=== PATIENT | female | born 1950 | race Hispanic/Latino ===

== ENCOUNTER → 2016-07-02 | Outpatient (CLI) | payer MEDICARE ==
[~2016-07-02] MED LIST: AMLO10TA2 PO; ASPI1TAB PO; DRIS50002 PO; GABA-279 PO; GLIP5TAB15 PO; K-TA10TA2 PO; LISI-542 PO; LISI20TA PO; METF1000 PO; RANI150T PO; SIMV80TA PO
[2016-07-02 14:37] LABS: BASO % 0.5 % (0.0-1.0); EOS # 0.4 K/mm3 (0.0-0.50); EOS % 4.7 % (0.0-3.0); LARGE UNSTAINED CELL # 0.2 K/mm3 (0.0-0.4); LARGE UNSTAINED CELL % 1.6 % (0.0-4.0); LYMPH # 2.2 K/mm3 (1.5-4.5); LYMPH % 21.5 % (24.0-44.0); MEAN CORPUSCULAR HEMOGLOBIN 28.9 pg (27.0-33.0); MEAN CORPUSCULAR HGB CONC 33.4 g/dl (32.0-36.5); MEAN CORPUSCULAR VOLUME 86.6 fl (80.0-96.0); MONO # 0.5 K/mm3 (0.0-0.8); MONO % 4.9 % (0.0-5.0); NEUTROPHILS # 6.5 K/mm3 (1.8-7.7); NEUTROPHILS % 66.9 % (36.0-66.0); PLATELET COUNT, AUTOMATED 305 k/mm3 (150-450); RED CELL DISTRIBUTION WIDTH 12.3 % (11.5-14.5); WHITE BLOOD COUNT 9.7 K/mm3 (4.0-10.0)
[2016-07-02 14:59] LABS: ALBUMIN 3.7 GM/DL (3.2-5.2); ALBUMIN/GLOBULIN RATIO 1.06 (1.00-1.93); ALKALINE PHOSPHATASE 41 U/L (45-117); ALT/SGPT 26 U/L (12-78); ANION GAP 11 MEQ/L (8-16); AST/SGOT 22 U/L (15-37); BILIRUBIN,TOTAL 0.4 MG/DL (0.2-1.0); BLOOD UREA NITROGEN 19 MG/DL (7-18); CALCIUM LEVEL 9.1 MG/DL (8.8-10.2); CARBON DIOXIDE LEVEL 28 MEQ/L (21-32); CHLORIDE LEVEL 102 MEQ/L (98-107); CREATININE FOR GFR 0.93 MG/DL (0.55-1.02); GLOMERULAR FILTRATION RATE > 60.0 (>45); GLUCOSE, FASTING 184 MG/DL (80-110); POTASSIUM SERUM 3.5 MEQ/L (3.5-5.1); SODIUM LEVEL 141 MEQ/L (136-145); TOTAL PROTEIN 7.2 GM/DL (6.4-8.2)
--- NOTE | 2016-07-02 15:01 | REP ---
CHEST X-RAY PA AND LATERAL: 07/02/2016. Comparison 07/12/2011. Clinical history: Preoperative chest. Findings: Two view show the lungs hypoinflated compared to the previous study. However, there is no pleural effusion, acute infiltrate, atelectasis or mass. Heart, mediastinal and hilar contours are grossly intact. The aorta is mildly tortuous but normal for age. The airway is intact. There are degenerative changes in the spine. There is no compression deformity. Impression: 1. No acute cardiopulmonary disease. Signed by Tre Estrada MD 07/02/2016 03:56 P
--- NOTE | 2016-07-02 17:00 | ECGEPIP ---
Stationary ECG Study [facility] Test Date: 2016-07-02 Pat Name: CLARA MOSER Department: Room: - Gender: F Measurer: : 1950 Requested By: Oral Cruz Order Number: [id number] Reading MD: Oral Monge Measurements Intervals [place] Rate: 94 P: 50 [place]: 223 QRS: 20 QRSD: 91 T: 71 QT: 377 QTc: 472 Interpretive Statements Normal sinus rhythm LA conduction disturbance? First-degree AV block. More prominent R waves in V2 and V3; rule out RVH versus prior PWMI Nonspecific lateral T-wave flattening No prior tracing for comparison. Clinical correlation advised. Electronically Signed On 07-02-2016 16:59:56 EST by Oral Monge
== END ==
LOC: M LAB 13:46
PROVIDERS: ATTEND Podiatrist
DX: Z01.818 Encounter for other preprocedural examination (principal); M20.11 Hallux valgus (acquired), right foot; E11.9 Type 2 diabetes mellitus without complications

== ENCOUNTER → 2016-07-02 | Outpatient (CLI) | payer MEDICARE ==
[2016-07-02 10:04] LABS: ALBUMIN 3.7 GM/DL (3.2-5.2); ALBUMIN/GLOBULIN RATIO 1.12 (1.00-1.93); ALKALINE PHOSPHATASE 42 U/L (45-117); ALT/SGPT 24 U/L (12-78); ANION GAP 10 MEQ/L (8-16); AST/SGOT 22 U/L (15-37); BILIRUBIN,TOTAL 0.6 MG/DL (0.2-1.0); BLOOD UREA NITROGEN 15 MG/DL (7-18); CALCIUM LEVEL 8.9 MG/DL (8.8-10.2); CARBON DIOXIDE LEVEL 27 MEQ/L (21-32); CHLORIDE LEVEL 105 MEQ/L (98-107); CHOLESTEROL LEVEL 120 MG/DL (<200); CREATININE FOR GFR 0.82 MG/DL (0.55-1.02); GLOMERULAR FILTRATION RATE > 60.0 (>45); GLUCOSE, FASTING 191 MG/DL (80-110); POTASSIUM SERUM 3.5 MEQ/L (3.5-5.1); SODIUM LEVEL 142 MEQ/L (136-145); TRIGLYCERIDES LEVEL 127 MG/DL (<150)
== END ==
LOC: M LAB 08:56
PROVIDERS: ATTEND Family Medicine Addiction Medicine
DX: E11.9 Type 2 diabetes mellitus without complications (principal)

== ENCOUNTER → 2016-07-06 | Day surgery (SDC) | payer MEDICARE ==
[~2016-07-06] VITALS: Ht 162.6 cm; Wt 86.2 kg
[~2016-07-06] MED LIST changes: +BACITRACIN PWD 50,000 UNITS VIAL As Ordered ONE; +BACITRACIN PWD 50,000 UNITS VIAL IR ONE; +BUPIVACAINE HCL 0.5% 30 ML VIAL As Ordered ONE; +BUPIVACAINE HCL 0.5% 30 ML VIAL XX ONE; +HumaLOG INSULIN (NovoLOG) PER UNIT As Ordered ONE; +HumaLOG INSULIN (NovoLOG) PER UNIT SC ONE; +KETAMINE HCL 200 MG/20 ML VIAL As Ordered ONE; +LIDOCAINE 2% INJ 100 MG/5 ML SDV (FOR ANES.) As Ordered ONE; +LIDOCAINE 2% MDV 20 ML VIAL As Ordered ONE; +LIDOCAINE 2% MDV 20 ML VIAL XX ONE; +LR 1,000 ML IV SCH; +MIDAZOLAM INJ 2 MG/2 ML VIAL (J2250) As Ordered ONE; +NEOSPORIN GU IRRIG 20 ML VIAL As Ordered ONE; +NEOSPORIN GU IRRIG 20 ML VIAL IR ONE; +ONDANSETRON 4 MG ORAL DISINTEGRATING TAB (S0181) PO ONE; +PERCOCET 5MG/325MG TAB PO PRN; +PROPOFOL 200 MG/20 ML VIAL As Ordered ONE; +ceFAZolin SOD 1 GM in D5W MINI-BAG PLUS 50 ML IV ONE; +dexameTHASONE 4 MG/ML 1ML VIAL (J1100) As Ordered ONE; +dexameTHASONE 4 MG/ML 1ML VIAL (J1100) XX ONE; +fentaNYL 100 MCG/2 ML INJECTION (J3010) As Ordered ONE
--- NOTE | 2016-07-06 15:05 | REP ---
RIGHT FOOT, THREE VIEWS: HISTORY: Bunionectomy. COMPARISON: 02/07/2016. A cast is present obscuring bone detail. The patient is status post bunionectomy of the first metatarsal. The patient is status post arthrodesis of the medial cuneiform and first metatarsal. A metal plate and screws are present. The joint spaces are normal in appearance. IMPRESSION: 1. The patient is status post bunionectomy of the first metatarsal. 2. The patient is status post arthrodesis of the first tarsal metatarsal joint. Signed by Ye Wood MD 07/06/2016 03:29 P
[2016-07-06 16:10] VITALS: BP 122/66
--- NOTE | 2016-07-07 14:34 | RO ---
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 PROCEDURE: Lapidus bunionectomy right foot SURGEON: Oral Cruz DPM REVENUE OFFICER: None. ANESTHESIA: Local, monitored anesthesia care (MAC). IRRIGATION: Dilute bacitracin, neomycin and polymyxin B solution. HEMOSTASIS: Ankle pneumatic tourniquet at 250 mmHg for 63 minutes right ankle. HARDWARE UTILIZED: Harris LPS plate size 0, DartFire 3.5 x 38 mm screw and nonlocking screws 3.5 x 16 x 2 and a 2.7 x 18 and 2.7 x 22. DESCRIPTION OF PROCEDURE: On 07/06/2016, this 65-year-old female was taken from her hospital room to the operating room and placed on the operating room table in a supine position. Following the induction of IV sedation, local and regional anesthesia, the right lower extremity was prepped and draped in the usual aseptic manner. Sterile draping was completed. Ankle pneumatic tourniquet was rapidly inflated. Lapidus bunionectomy right foot Attention was directed to the first metatarsal phalangeal joint where an incision was made from the middle aspect of the medial cuneiform to distal to the first metatarsal phalangeal joint. The incision was deepened through subcutaneous tissues and all coursing venous tributaries were identified, underscored, clamped, cut, ligated, and electrocoagulated as necessary. A linear capsulotomy was then performed in the same plane as the original skin incision. The capsule and periosteal structures were dissected free in one continuous layer dorsally, medially and laterally, thus creating a capsule and periosteal type envelope. The hypertrophied medial eminence was then osteotomized from distal to proximal through and through exiting medial to sesamoidal groove. Attention was directed into the first metatarsal space where dissection was carried down to the level of the conjoined tendon which was sharply dissected free from the fibular sesamoid. Attention was then directed to the first metatarsal cuneiform joint where a small wedge of bone and cartilage was removed from the joint, removing arthritic cartilage at the first metatarsal cuneiform joint. The ends were then drilled with a 2.0 drill bit to promote fusion. The wound was flushed with copious amounts of dilute bacitracin, neomycin and polymyxin B solution. A 3.5 x 38 mm cannulated screw was then placed across the first metatarsal cuneiform joint providing compression. This was performed with C-arm imagery. A contoured size 0 LPS plate was then placed on the medial surface of the first metatarsal cuneiform joint and fixated with two 3.5 x 16 mm nonlocking screws along the medial cuneiform and 2.7 x 18 and a 2.7 x 22 mm nonlocking screws along the metatarsal. This created a stable construct for fusion at the first metatarsal cuneiform joint. The wound was flushed with copious amounts of dilute bacitracin, neomycin and polymyxin B solution. Attention was directed toward closure where the capsular structures were coapted and maintained utilizing #3-0 Vicryl in a simple interrupted type fashion. Subcutaneous tissues were coapted and maintained utilizing #4-0 Monocryl in a simple interrupted type fashion. The skin incision was coapted and maintained utilizing #4-0 Prolene in a simple interrupted and horizontal mattress type fashion. Following the completion of the surgical procedure, 4 mg of dexamethasone sodium phosphate was instilled proximal to the surgical site. Sterile dressing was applied consisting of Adaptic, 4x4s, and Klong. The ankle pneumatic tourniquet was rapidly deflated and instantaneous capillary filling time was noted in digits 1-5 of the patients left foot. A well molded below the knee fiberglass cast was then applied over the patient's foot and leg. The patient having apparently tolerated the surgical procedure well was taken from the OR to the recovery room with vital signs stable and the patient afebrile for further monitoring by the anesthesia department. All surgical specimens removed during the operative procedure were sent to pathology for gross and microscopic examination. Postoperative instructions will be given upon discharge. MYNOR
== END | disposition home or self-care (01) ==
LOC: M SDC 09:40
PROVIDERS: ATTEND Podiatrist
DX: M20.11 Hallux valgus (acquired), right foot (principal); E11.9 Type 2 diabetes mellitus without complications; G47.30 Sleep apnea, unspecified; Z79.82 Long term (current) use of aspirin; Z79.899 Other long term (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; I10 Essential (primary) hypertension; E78.5 Hyperlipidemia, unspecified
CPT/HCPCS: 28297; 73630; 88300; 97116; C1776; J0690; J1100; J2250; J3010

== ENCOUNTER → 2016-09-18 | Outpatient (CLI) | payer MEDICARE ==
[~2016-09-18] MED LIST changes: -BACITRACIN PWD 50,000 UNITS VIAL As Ordered ONE; -BACITRACIN PWD 50,000 UNITS VIAL IR ONE; -BUPIVACAINE HCL 0.5% 30 ML VIAL As Ordered ONE; -BUPIVACAINE HCL 0.5% 30 ML VIAL XX ONE; -HumaLOG INSULIN (NovoLOG) PER UNIT As Ordered ONE; -HumaLOG INSULIN (NovoLOG) PER UNIT SC ONE; -KETAMINE HCL 200 MG/20 ML VIAL As Ordered ONE; -LIDOCAINE 2% INJ 100 MG/5 ML SDV (FOR ANES.) As Ordered ONE; -LIDOCAINE 2% MDV 20 ML VIAL As Ordered ONE; -LIDOCAINE 2% MDV 20 ML VIAL XX ONE; -LR 1,000 ML IV SCH; -MIDAZOLAM INJ 2 MG/2 ML VIAL (J2250) As Ordered ONE; -NEOSPORIN GU IRRIG 20 ML VIAL As Ordered ONE; -NEOSPORIN GU IRRIG 20 ML VIAL IR ONE; -ONDANSETRON 4 MG ORAL DISINTEGRATING TAB (S0181) PO ONE; -PERCOCET 5MG/325MG TAB PO PRN; -PROPOFOL 200 MG/20 ML VIAL As Ordered ONE; -ceFAZolin SOD 1 GM in D5W MINI-BAG PLUS 50 ML IV ONE; -dexameTHASONE 4 MG/ML 1ML VIAL (J1100) As Ordered ONE; -dexameTHASONE 4 MG/ML 1ML VIAL (J1100) XX ONE; -fentaNYL 100 MCG/2 ML INJECTION (J3010) As Ordered ONE
[2016-09-18 10:27] LABS: BASO % 0.4 % (0.0-1.0); EOS # 0.7 K/mm3 (0.0-0.50); EOS % 6.5 % (0.0-3.0); LYMPH # 2.2 K/mm3 (1.5-4.5); MEAN CORPUSCULAR HGB CONC 33.7 g/dl (32.0-36.5); MEAN CORPUSCULAR VOLUME 88.8 fl (80.0-96.0); MONO # 0.5 K/mm3 (0.0-0.8); MONO % 4.3 % (0.0-5.0); NEUTROPHILS # 7.1 K/mm3 (1.8-7.7); NEUTROPHILS % 66.6 % (36.0-66.0); RED CELL DISTRIBUTION WIDTH 12.5 % (11.5-14.5); WHITE BLOOD COUNT 10.6 K/mm3 (4.0-10.0)
[2016-09-18 10:59] LABS: ALBUMIN 3.7 GM/DL (3.2-5.2); ALBUMIN/GLOBULIN RATIO 1.12 (1.00-1.93); ALKALINE PHOSPHATASE 39 U/L (45-117); ALT/SGPT 23 U/L (12-78); ANION GAP 8 MEQ/L (8-16); AST/SGOT 20 U/L (15-37); BILIRUBIN,TOTAL 0.5 MG/DL (0.2-1.0); BLOOD UREA NITROGEN 17 MG/DL (7-18); CARBON DIOXIDE LEVEL 32 MEQ/L (21-32); CHLORIDE LEVEL 102 MEQ/L (98-107); CHOLESTEROL LEVEL 131 MG/DL (<200); CREATININE FOR GFR 0.88 MG/DL (0.55-1.02); GLOMERULAR FILTRATION RATE > 60.0 (>45); GLUCOSE, FASTING 187 MG/DL (80-110); POTASSIUM SERUM 3.6 MEQ/L (3.5-5.1); SODIUM LEVEL 142 MEQ/L (136-145); TRIGLYCERIDES LEVEL 178 MG/DL (<150)
== END ==
LOC: M LAB 09:21
PROVIDERS: ATTEND Physician Assistant Medical
DX: E11.9 Type 2 diabetes mellitus without complications (principal)

== ENCOUNTER → 2016-12-21 | Outpatient (CLI) | payer MEDICARE ==
[~2016-12-21] MED LIST changes: +GLIP1TAB49 PO; -GLIP5TAB15 PO; -METF1000 PO; +METF10004 PO
[2016-12-21 09:53] LABS: BASO % 0.5 % (0.0-1.0); EOS # 0.7 K/mm3 (0.0-0.50); EOS % 7.3 % (0.0-3.0); LYMPH # 2.3 K/mm3 (1.5-4.5); LYMPH % 22.1 % (24.0-44.0); MEAN CORPUSCULAR HEMOGLOBIN 30.5 pg (27.0-33.0); MEAN CORPUSCULAR HGB CONC 35.2 g/dl (32.0-36.5); MEAN CORPUSCULAR VOLUME 86.6 fl (80.0-96.0); MONO # 0.4 K/mm3 (0.0-0.8); MONO % 4.3 % (0.0-5.0); NEUTROPHILS # 6.2 K/mm3 (1.8-7.7); NEUTROPHILS % 64.6 % (36.0-66.0); RED CELL DISTRIBUTION WIDTH 12.5 % (11.5-14.5); WHITE BLOOD COUNT 9.7 K/mm3 (4.0-10.0)
[2016-12-21 10:32] LABS: VITAMIN B12 LEVEL 265 PG/ML (247-911)
[2016-12-21 10:33] LABS: FOLATE 12.7 NG/ML (>5.4)
[2016-12-21 10:36] LABS: ALBUMIN 3.7 GM/DL (3.2-5.2); ALBUMIN/GLOBULIN RATIO 1.09 (1.00-1.93); ALKALINE PHOSPHATASE 43 U/L (45-117); ALT/SGPT 20 U/L (12-78); ANION GAP 13 MEQ/L (8-16); AST/SGOT 13 U/L (15-37); BILIRUBIN,TOTAL 0.6 MG/DL (0.2-1.0); BLOOD UREA NITROGEN 18 MG/DL (7-18); CALCIUM LEVEL 9.2 MG/DL (8.8-10.2); CARBON DIOXIDE LEVEL 26 MEQ/L (21-32); CHLORIDE LEVEL 101 MEQ/L (98-107); GLOMERULAR FILTRATION RATE > 60.0 (>45); GLUCOSE, FASTING 202 MG/DL (80-110); MAGNESIUM LEVEL 1.6 MG/DL (1.8-2.4); PHOSPHORUS LEVEL 3.2 MG/DL (2.5-4.9); POTASSIUM SERUM 3.3 MEQ/L (3.5-5.1); SODIUM LEVEL 140 MEQ/L (136-145); TOTAL PROTEIN 7.1 GM/DL (6.4-8.2)
[2016-12-24 11:54] LABS: ALBUMIN 3.91 GM/DL (3.29-5.55); ALBUMIN % 55.1 % (55.8-66.1); GAMMA GLOBULIN % 13.7 % (11.1-18.8)
[2016-12-25 00:10] LABS: Lyme Disease IgG Ab 18 kDa Ban Absent (.); Lyme Disease IgG Ab 23 kDa Ban Absent (.); Lyme Disease IgG Ab 28 kDa Ban Absent (.); Lyme Disease IgG Ab 30 kDa Ban Absent (.); Lyme Disease IgG Ab 39 kDa Ban Absent (.); Lyme Disease IgG Ab 41 kDa Ban Present (.); Lyme Disease IgG Ab 45 kDa Ban Absent (.); Lyme Disease IgG Ab 58 kDa Ban Absent (.); Lyme Disease IgG Ab 66 kDa Ban Absent (.); Lyme Disease IgG Ab 93 kDa Ban Absent (.); Lyme Disease IgG West Blot Int Negative (.); Lyme Disease IgG/IgM Antibodie <0.91 ISR (0.00-0.90); Lyme Disease IgM Ab 23 kDa Ban Absent (.); Lyme Disease IgM Ab 39 kDa Ban Absent (.); Lyme Disease IgM Ab 41 kDa Ban Absent (.); Lyme Disease IgM West Blot Int Negative (.)
== END ==
LOC: M LAB 08:43
PROVIDERS: ATTEND Physician Assistant Medical
DX: M13.80 Other specified arthritis, unspecified site (principal); R53.83 Other fatigue

== ENCOUNTER → 2017-02-11 | Outpatient (CLI) | payer MEDICARE ==
[2017-02-11 09:14] LABS: ANION GAP 9 MEQ/L (8-16); BLOOD UREA NITROGEN 18 MG/DL (7-18); CALCIUM LEVEL 8.9 MG/DL (8.8-10.2); CARBON DIOXIDE LEVEL 29 MEQ/L (21-32); CHLORIDE LEVEL 101 MEQ/L (98-107); CREATININE FOR GFR 0.83 MG/DL (0.55-1.02); FERRITIN 39 NG/ML (8-252); GLOMERULAR FILTRATION RATE > 60.0 (>45); GLUCOSE, FASTING 218 MG/DL (80-110); POTASSIUM SERUM 3.5 MEQ/L (3.5-5.1); SODIUM LEVEL 139 MEQ/L (136-145)
== END ==
LOC: M LAB 07:49
PROVIDERS: ATTEND Physician Assistant Medical
DX: M13.80 Other specified arthritis, unspecified site (principal); E11.9 Type 2 diabetes mellitus without complications; E87.6 Hypokalemia

== ENCOUNTER → 2017-04-16 | Outpatient (CLI) | payer MEDICARE ==
[2017-04-16 10:43] LABS: ALBUMIN 3.4 GM/DL (3.2-5.2); ALBUMIN/GLOBULIN RATIO 0.92 (1.00-1.93); ALKALINE PHOSPHATASE 49 U/L (45-117); ALT/SGPT 24 U/L (12-78); ANION GAP 10 MEQ/L (8-16); AST/SGOT 17 U/L (7-37); BILIRUBIN,TOTAL 0.6 MG/DL (0.2-1.0); BLOOD UREA NITROGEN 18 MG/DL (7-18); CALCIUM LEVEL 9.1 MG/DL (8.8-10.2); CARBON DIOXIDE LEVEL 29 MEQ/L (21-32); CHLORIDE LEVEL 102 MEQ/L (98-107); CHOLESTEROL LEVEL 137 MG/DL (<200); CREATININE FOR GFR 0.82 MG/DL (0.55-1.02); GLOMERULAR FILTRATION RATE > 60.0 (>45); GLUCOSE, FASTING 194 MG/DL (80-110); POTASSIUM SERUM 3.5 MEQ/L (3.5-5.1); SODIUM LEVEL 141 MEQ/L (136-145); TOTAL PROTEIN 7.1 GM/DL (6.4-8.2); TRIGLYCERIDES LEVEL 222 MG/DL (<150)
== END ==
LOC: M LAB 09:37
PROVIDERS: ATTEND Physician Assistant Medical
DX: E11.9 Type 2 diabetes mellitus without complications (principal); Z79.899 Other long term (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

== ENCOUNTER → 2017-06-03 | Outpatient (CLI) | payer MEDICARE ==
[2017-06-03 09:44] LABS: ALBUMIN 3.7 GM/DL (3.2-5.2); ALBUMIN/GLOBULIN RATIO 1.03 (1.00-1.93); ALKALINE PHOSPHATASE 48 U/L (45-117); ALT/SGPT 23 U/L (12-78); ANION GAP 9 MEQ/L (8-16); AST/SGOT 15 U/L (7-37); BILIRUBIN,TOTAL 0.5 MG/DL (0.2-1.0); BLOOD UREA NITROGEN 16 MG/DL (7-18); CALCIUM LEVEL 9.3 MG/DL (8.8-10.2); CARBON DIOXIDE LEVEL 30 MEQ/L (21-32); CHLORIDE LEVEL 101 MEQ/L (98-107); CHOLESTEROL LEVEL 140 MG/DL (<200); CHOLESTEROL RISK RATIO 3.684 (<5); GLOMERULAR FILTRATION RATE > 60.0 (>45); GLUCOSE, FASTING 246 MG/DL (80-110); HDL CHOLESTEROL 38 MG/DL (>40); LDL CHOLESTEROL 60.6 MG/DL (<100); NON-HDL-C 102 MG/DL; POTASSIUM SERUM 3.7 MEQ/L (3.5-5.1); SODIUM LEVEL 140 MEQ/L (136-145); TOTAL PROTEIN 7.3 GM/DL (6.4-8.2); TRIGLYCERIDES LEVEL 207 MG/DL (<150)
[2017-06-03 10:20] LABS: ESTIMATED AVERAGE GLUCOSE 266 MG/DL (60-110); HEMOGLOBIN A1c 10.9 %
== END ==
LOC: M LAB 08:43
DX: E11.9 Type 2 diabetes mellitus without complications (principal)
CPT/HCPCS: 80053

== ENCOUNTER → 2017-07-09 | Outpatient (CLI) | payer MEDICARE ==
[2017-07-09 11:44] LABS: BASO % 0.3 % (0.0-1.0); EOS # 0.5 10^3/uL (0.0-0.50); EOS % 5.5 % (0.0-3.0); HEMATOCRIT 38.9 % (36.0-47.0); HEMOGLOBIN 13.5 g/dl (12.0-16.0); IMMATURE GRANULOCYTE % 0.2 % (0-3.0); LYMPH # 2.6 10^3/uL (1.5-4.5); LYMPH % 28.8 % (24.0-44.0); MEAN CORPUSCULAR HEMOGLOBIN 29.5 pg (27.0-33.0); MEAN CORPUSCULAR HGB CONC 34.7 g/dl (32.0-36.5); MEAN CORPUSCULAR VOLUME 85.1 fl (80.0-96.0); MONO # 0.6 10^3/uL (0.0-0.8); MONO % 6.4 % (0.0-5.0); NEUTROPHILS # 5.3 10^3/uL (1.8-7.7); NEUTROPHILS % 58.8 % (36.0-66.0); PLATELET COUNT, AUTOMATED 304 10^3/uL (150-450); RED BLOOD COUNT 4.57 10^6/uL (4.00-5.40); RED CELL DISTRIBUTION WIDTH 12.1 % (11.5-14.5); WHITE BLOOD COUNT 9.1 10^3/uL (4.0-10.0)
[2017-07-09 12:00] LABS: ESTIMATED AVERAGE GLUCOSE 220 MG/DL (60-110); HEMOGLOBIN A1c 9.3 %
[2017-07-09 12:12] LABS: ALBUMIN 3.8 GM/DL (3.2-5.2); ALBUMIN/GLOBULIN RATIO 1.06 (1.00-1.93); ALKALINE PHOSPHATASE 39 U/L (45-117); ALT/SGPT 25 U/L (12-78); ANION GAP 10 MEQ/L (8-16); AST/SGOT 19 U/L (7-37); BILIRUBIN,TOTAL 0.5 MG/DL (0.2-1.0); BLOOD UREA NITROGEN 17 MG/DL (7-18); CALCIUM LEVEL 8.9 MG/DL (8.8-10.2); CARBON DIOXIDE LEVEL 26 MEQ/L (21-32); CHLORIDE LEVEL 105 MEQ/L (98-107); CHOLESTEROL LEVEL 138 MG/DL (<200); CREATININE FOR GFR 0.74 MG/DL (0.55-1.30); GLOMERULAR FILTRATION RATE > 60.0 (>45); GLUCOSE, FASTING 172 MG/DL (70-100); HDL CHOLESTEROL 40 MG/DL (>40); LDL CHOLESTEROL 72.2 MG/DL (<100); NON-HDL-C 98 MG/DL; POTASSIUM SERUM 3.5 MEQ/L (3.5-5.1); SODIUM LEVEL 141 MEQ/L (136-145); TOTAL PROTEIN 7.4 GM/DL (6.4-8.2); TRIGLYCERIDES LEVEL 129 MG/DL (<150)
== END ==
LOC: M LAB 11:00
DX: E11.9 Type 2 diabetes mellitus without complications (principal)
CPT/HCPCS: 80053

== ENCOUNTER → 2018-01-29 | Outpatient (CLI) | payer MEDICARE ==
[2018-01-29 10:56] LABS: HEMATOCRIT 40.3 % (36.0-47.0); HEMOGLOBIN 13.8 g/dl (12.0-15.5); MEAN CORPUSCULAR HEMOGLOBIN 29.6 pg (27.0-33.0); MEAN CORPUSCULAR HGB CONC 34.2 g/dl (32.0-36.5); MEAN CORPUSCULAR VOLUME 86.5 fl (80.0-96.0); PLATELET COUNT, AUTOMATED 276 10^3/uL (150-450); RED BLOOD COUNT 4.66 10^6/uL (4.00-5.40); RED CELL DISTRIBUTION WIDTH 11.9 % (11.5-14.5); WHITE BLOOD COUNT 10.1 10^3/uL (4.0-10.0)
[2018-01-29 11:30] LABS: ESTIMATED AVERAGE GLUCOSE 237 MG/DL (60-110); HEMOGLOBIN A1c 9.9 %
[2018-01-29 11:39] LABS: ALBUMIN 3.6 GM/DL (3.2-5.2); ALBUMIN/GLOBULIN RATIO 0.97 (1.00-1.93); ALKALINE PHOSPHATASE 44 U/L (45-117); ALT/SGPT 29 U/L (12-78); ANION GAP 9 MEQ/L (8-16); AST/SGOT 17 U/L (7-37); BILIRUBIN,TOTAL 0.6 MG/DL (0.2-1.0); BLOOD UREA NITROGEN 24 MG/DL (7-18); CALCIUM LEVEL 8.8 MG/DL (8.8-10.2); CARBON DIOXIDE LEVEL 30 MEQ/L (21-32); CHLORIDE LEVEL 101 MEQ/L (98-107); CHOLESTEROL LEVEL 157 MG/DL (<200); CHOLESTEROL RISK RATIO 4.757 (<5); CREATININE FOR GFR 0.98 MG/DL (0.55-1.30); GLOMERULAR FILTRATION RATE > 60.0 (>45); GLUCOSE, FASTING 243 MG/DL (70-100); HDL CHOLESTEROL 33 MG/DL (>40); LDL CHOLESTEROL 79 MG/DL (<100); NON-HDL-C 124 MG/DL; POTASSIUM SERUM 3.3 MEQ/L (3.5-5.1); SODIUM LEVEL 140 MEQ/L (136-145); TOTAL PROTEIN 7.3 GM/DL (6.4-8.2); TRIGLYCERIDES LEVEL 227 MG/DL (<150)
[2018-01-29 11:41] LABS: TOTAL 25(OH) VITAMIN D 27.8 NG/ML (30.0-100.0)
== END ==
LOC: M LAB 10:13
DX: R53.83 Other fatigue (principal); I10 Essential (primary) hypertension; E11.9 Type 2 diabetes mellitus without complications; Z79.899 Other long term (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
CPT/HCPCS: 71046

== ENCOUNTER → 2018-05-21 | Outpatient (CLI) | payer MEDICARE ==
[~2018-05-21] MED LIST changes: -AMLO10TA2 PO; +AMLO10TA5 PO; -DRIS50002 PO; +DRIS50003 PO; +GABA-1171 PO; -GABA-279 PO; -GLIP1TAB49 PO; +GLIP5TAB20 PO; -SIMV80TA PO; +SIMV80TA13 PO
[2018-05-21 10:33] LABS: CHOLESTEROL RISK RATIO 4.111 (<5); THYROID STIMULATING HORMONE 1.62 uIU/ML (0.358-3.740)
[2018-05-21 11:03] LABS: TOTAL 25(OH) VITAMIN D 25.3 NG/ML (30.0-100.0)
[2018-05-21 11:07] LABS: HEMOGLOBIN A1c 10.7 %
--- NOTE | 2018-05-21 11:09 | REP ---
LUMBAR SPINE, FIVE VIEWS: HISTORY: Sciatica. COMPARISON: 05/18/2013 The lowest intervertebral disc is assumed to be the L5-S1 intervertebral disc. There is no acute fracture or subluxation. The L3-4 through L5-S1 intervertebral discs are decreased in height consistent with disc degeneration. Osteophytes are present on L3 through L5. There is narrowing of the L5-S1 facet joints. IMPRESSION: Degenerative change as described above. Electronically Signed by Ye Wood MD 05/21/2018 11:18 A
== END ==
LOC: M LAB 09:08
PROVIDERS: ATTEND Family Medicine
DX: M51.37 Other intervertebral disc degeneration, lumbosacral region (principal); M25.78 Osteophyte, vertebrae; E11.9 Type 2 diabetes mellitus without complications; I10 Essential (primary) hypertension; E03.9 Hypothyroidism, unspecified; R53.83 Other fatigue

== ENCOUNTER 2018-10-16 09:27 | Outpatient (RCR) | payer MEDICARE ==
[~2018-10-16 09:27] MED LIST changes: -ASPI1TAB PO; +ASPI81TA26 PO
== END 2018-10-17 ==
LOC: M PT 09:27
PROVIDERS: ATTEND Orthopaedic Surgery
DX: M17.0 Bilateral primary osteoarthritis of knee (principal)

== ENCOUNTER → 2018-11-03 | Outpatient (CLI) | payer MEDICARE ==
[2018-11-03 11:16] LABS: HEMATOCRIT 43.6 % (36.0-47.0); HEMOGLOBIN 14.3 g/dl (12.0-15.5); MEAN CORPUSCULAR HEMOGLOBIN 30.3 pg (27.0-33.0); MEAN CORPUSCULAR HGB CONC 32.8 g/dl (32.0-36.5); MEAN CORPUSCULAR VOLUME 92.4 fl (80.0-96.0); PLATELET COUNT, AUTOMATED 246 10^3/uL (150-450); RED BLOOD COUNT 4.72 10^6/uL (4.00-5.40); WHITE BLOOD COUNT 9.3 10^3/uL (4.0-10.0)
[2018-11-03 11:33] LABS: HEMOGLOBIN A1c 9.8 %
[2018-11-03 12:05] LABS: ALBUMIN 3.2 GM/DL (3.2-5.2); ALT/SGPT 29 U/L (12-78); BILIRUBIN,TOTAL 0.7 MG/DL (0.2-1.0); BLOOD UREA NITROGEN 20 MG/DL (7-18); CARBON DIOXIDE LEVEL 32 MEQ/L (21-32); CHLORIDE LEVEL 106 MEQ/L (98-107); CHOLESTEROL LEVEL 159 MG/DL (<200); CHOLESTEROL RISK RATIO 3.057 (<5); CREATININE FOR GFR 0.85 MG/DL (0.55-1.30); GLOMERULAR FILTRATION RATE > 60.0 (>45); GLUCOSE, FASTING 131 MG/DL (70-100); HDL CHOLESTEROL 52 MG/DL (>40); IRON (FE) 79 UG/DL (50-170); LDL CHOLESTEROL 88 MG/DL (<100); NON-HDL-C 107 MG/DL; PERCENT SATURATION 22.8 % (13.2-45.0); POTASSIUM SERUM 4.5 MEQ/L (3.5-5.1); SODIUM LEVEL 142 MEQ/L (136-145); THYROXINE (T4) 11.6 UG/DL (4.5-12.0); TOTAL IRON BINDING CAPACITY 346 UG/DL (250-450); TOTAL PROTEIN 6.7 GM/DL (6.4-8.2); TOTAL T3 107.9 NG/DL (60.0-181.0); TRIGLYCERIDES LEVEL 95 MG/DL (<150)
== END ==
LOC: M LAB 10:09
PROVIDERS: ATTEND Family Medicine
DX: D64.9 Anemia, unspecified (principal); R53.83 Other fatigue; M17.0 Bilateral primary osteoarthritis of knee

== ENCOUNTER 2018-11-06 09:27 | Outpatient (RCR) | payer MEDICARE | END 2018-11-16 | LOC: M PT 09:27 | PROVIDERS: ATTEND Orthopaedic Surgery | DX: M17.0 Bilateral primary osteoarthritis of knee (principal) ==

== ENCOUNTER 2018-11-29 17:54 | Emergency (ER) | payer MEDICARE ==
[~2018-11-29] VITALS: Ht 162.6 cm; Wt 79.5 kg
[2018-11-29] MEDS ORDERED: MONT10TA2 PO (18:32)
[2018-11-29] MEDS ORDERED: CLAR10CA3 PO (18:32)
[2018-11-29] MEDS ORDERED: MELO15TA28 (18:32)
[2018-11-29 18:50] LABS: BASO # 0.1 10^3/uL (0.0-0.2); BASO % 0.4 % (0.0-1.0); EOS # 0.3 10^3/uL (0.0-0.50); EOS % 1.8 % (0.0-3.0); HEMATOCRIT 42.9 % (36.0-47.0); HEMOGLOBIN 14.6 g/dl (12.0-15.5); LYMPH # 1.3 10^3/uL (1.5-4.5); LYMPH % 9.5 % (24.0-44.0); MEAN CORPUSCULAR HEMOGLOBIN 30.2 pg (27.0-33.0); MEAN CORPUSCULAR VOLUME 88.8 fl (80.0-96.0); MONO # 0.9 10^3/uL (0.0-0.8); MONO % 6.7 % (0.0-5.0); NEUTROPHILS # 11.2 10^3/uL (1.8-7.7); NEUTROPHILS % 81.1 % (36.0-66.0); PLATELET COUNT, AUTOMATED 314 10^3/uL (150-450); RED BLOOD COUNT 4.83 10^6/uL (4.00-5.40); WHITE BLOOD COUNT 13.8 10^3/uL (4.0-10.0)
[2018-11-29] MEDS ORDERED: NITROGLYCERIN 0.4 MG SUBL TABLET SL PRN (19:00)
[2018-11-29] MEDS ORDERED: ASPIRIN 81 MG CHEW TABLET PO ONE (19:00)
[2018-11-29 19:07] VITALS: BP 158/94
[2018-11-29 19:42] LABS: ALBUMIN 3.4 GM/DL (3.2-5.2); ALT/SGPT 31 U/L (12-78); BILIRUBIN,DIRECT < 0.1 MG/DL (0.0-0.2); BILIRUBIN,TOTAL 0.4 MG/DL (0.2-1.0); BLOOD UREA NITROGEN 19 MG/DL (7-18); CALCIUM LEVEL 9.3 MG/DL (8.8-10.2); CARBON DIOXIDE LEVEL 27 MEQ/L (21-32); CHLORIDE LEVEL 102 MEQ/L (98-107); CK-MB VALUE MASS 1.2 NG/ML (<3.6); CPK CREATINE PHOSPHOKINASE 106 U/L (26-192); CREATININE FOR GFR 0.99 MG/DL (0.55-1.30); GLOMERULAR FILTRATION RATE 59.6 (>45); GLUCOSE, FASTING 240 MG/DL (70-100); LIPASE 244 U/L (73-393); MB/CK RELATIVE INDEX 1.13 (< OR =4); NT-PRO BNP 107 PG/ML (<125); POTASSIUM SERUM 3.5 MEQ/L (3.5-5.1); SODIUM LEVEL 139 MEQ/L (136-145); TOTAL PROTEIN 7.1 GM/DL (6.4-8.2); TROPONIN I < 0.02 NG/ML (< 0.10)
[2018-11-29] MEDS ORDERED: ISOVUE-370 76% 100ML VIAL (Q9967) As Ordered ONE (19:46)
--- NOTE | 2018-11-29 20:19 | REPVR ---
EXAM: CT Angiography Chest With Contrast EXAM DATE/TIME: 11/29/2018 7:49 PM CLINICAL HISTORY: 68 years old, female; Chest pain; Additional info: Pleuritic R chest pain TECHNIQUE: Imaging protocol: Axial computed tomographic angiography images of the chest with intravenous contrast using CT angiography protocol. Coronal and sagittal reformatted images were created and reviewed. 3D rendering: MIP reconstructed images were created and reviewed. Radiation optimization: All CT scans at this facility use at least one of these dose optimization techniques: automated exposure control; mA and/or kV adjustment per patient size (includes targeted exams where dose is matched to clinical indication); or iterative reconstruction. Contrast material: ISOVUE 370; Contrast volume: 100 ml; Contrast route: IV; COMPARISON: CR PORTABLE CHEST X-RAY 11/29/2018 6:27 PM FINDINGS: Pulmonary arteries: The main pulmonary artery measures 34 mm. No pulmonary embolism is identified. Aorta: The ascending thoracic aorta measures 36 mm. Lungs: Minimal bilateral lower lobe fibro-atelectatic change. Calcified granuloma in the posterior upper lobe. Pleural space: Unremarkable. No pneumothorax. No pleural effusion. Heart: Coronary artery calcifications are present. Kidneys and ureters: Severely hypoplastic left kidney. Lymph nodes: Unremarkable. No enlarged lymph nodes. Bones/joints: Mild degenerative spurring of the thoracic spine. Soft tissues: Unremarkable. IMPRESSION: 1. Minimal evidence of old granulomatous disease. 2. Severely hypoplastic left kidney. 3. Otherwise negative CTA chest. No pulmonary embolism is identified. Electronically signed by: Duy Pierson On 11/29/2018 20:18:46 PM
--- NOTE | 2018-11-29 20:24 | REPVR ---
EXAM: CT Abdomen and Pelvis With Contrast EXAM DATE/TIME: 11/29/2018 7:49 PM CLINICAL HISTORY: 68 years old, female; Abdominal pain; Generalized; Additional info: Abd pain generalized TECHNIQUE: Imaging protocol: Axial computed tomography images of the abdomen and pelvis with intravenous contrast. Coronal and sagittal reformatted images were created and reviewed. Radiation optimization: All CT scans at this facility use at least one of these dose optimization techniques: automated exposure control; mA and/or kV adjustment per patient size (includes targeted exams where dose is matched to clinical indication); or iterative reconstruction. Contrast material: ISOVUE 370; Contrast volume: 100 ml; Contrast route: IV; COMPARISON: No relevant prior studies available. FINDINGS: Liver: There is fatty infiltration of the liver. Gallbladder and bile ducts: The gallbladder is somewhat contracted with no stones. Pancreas: Normal. No ductal dilation. Spleen: Normal. No splenomegaly. Adrenals: Normal. No mass. Kidneys and ureters: Severely hypoplastic left kidney. Stomach and bowel: There is colonic diverticulosis without evidence of diverticulitis. The left colon is collapsed or contracted. Minimal wall thickening is not excluded, particularly in the sigmoid. Appendix: A normal appendix is seen. Intraperitoneal space: Normal. No free air. No significant fluid collection. Vasculature: There is mild calcification of the abdominal aorta with extension into the iliac arteries. Lymph nodes: Normal. No enlarged lymph nodes. Bladder: Unremarkable as visualized. Reproductive: Unremarkable as visualized. Bones/joints: Degenerative changes of the lumbar spine with posterior osteophytes at L4-L5 and moderate secondary spinal stenosis and left neural foraminal stenosis. Soft tissues: Unremarkable. IMPRESSION: 1. Question of minimal nonspecific left colitis, greatest in the sigmoid. 2. Colonic diverticulosis without definite diverticulitis. 3. Degenerative changes of the lumbar spine with posterior osteophytes L4-L5 and moderate secondary spinal stenosis. 4. Severely hypoplastic left kidney. 5. Fatty infiltration of the liver. Electronically signed by: Duy Pierson On 11/29/2018 20:24:07 PM
[2018-11-29 22:57] LABS: CK-MB VALUE MASS < 1.0 NG/ML (<3.6); CPK CREATINE PHOSPHOKINASE 87 U/L (26-192); MB/CK RELATIVE INDEX 1.15 (< OR =4); TROPONIN I < 0.02 NG/ML (< 0.10)
[2018-11-29] MEDS ORDERED: NAPR-837 PO (23:14)
[2018-11-29 23:30] VITALS: BP 153/79
--- NOTE | 2018-11-30 09:28 | REP ---
Portable chest x-ray: Single view. History: Chest pain. Comparison chest x-ray: January 29, 2018. Findings: EKG monitoring electrodes overlie the chest. Lungs are well inflated and free of infiltrate. Pleural angles are sharp. There is a skin fold projecting at the left base. Heart size is normal. Degenerative changes are seen in the thoracic spine. A left cervical rib is noted unchanged. Impression: No active cardiopulmonary disease. Electronically Signed by Toño Rios MD 11/30/2018 09:41 A
--- NOTE | 2018-12-01 12:45 | ED PDOC ---
Post-Departure Follow-Up dr celestin faxed formal report of ct abd/p for fu Mary Anne Oliver MD Dec 01, 2018 12:45
--- NOTE | 2018-12-01 16:49 | ECGEPIP ---
[facility] - ED Test Date: 2018-11-29 Pat Name: CLARA MOSER Department: Room: - Gender: Female Precipitator: CT : 1950 Requested By: JONNIE Dias Order Number: [id number] Reading MD: Christiano Mace Measurements Intervals [place] Rate: 110 P: 40 [place]: 221 QRS: 10 QRSD: 87 T: 77 QT: 333 QTc: 452 Interpretive Statements SINUS TACHYCARDIA WITH FIRST DEGREE AV BLOCK Nonspecific ST-T wave abnormalities Similar to tracing done 01-29-18 with rate increase Electronically Signed on 12-01-2018 16:49:27 EDT by Christiano Mace
--- NOTE | 2018-12-01 17:02 | ECGEPIP ---
[facility] - ED Test Date: 2018-11-29 Pat Name: CLARA MOSER Department: Room: - Gender: Female Scientific Editor: RIAN : 1950 Requested By: ROBBY Multani Order Number: [id number] Reading MD: Christiano Mace Measurements Intervals [place] Rate: 98 P: 48 [place]: 239 QRS: 19 QRSD: 87 T: 80 QT: 369 QTc: 471 Interpretive Statements SINUS RHYTHM WITH FIRST DEGREE AV BLOCK Nonspecific ST-T wave abnormalities Similar to tracing done 18:05 on the same day Electronically Signed on 12-01-2018 17:01:59 EDT by Christiano Mace
== END 2018-11-29 23:50 | disposition home or self-care (01) ==
LOC: M ED 17:54
DX: R07.89 Other chest pain (principal); I44.0 Atrioventricular block, first degree; R00.0 Tachycardia, unspecified; E11.9 Type 2 diabetes mellitus without complications; I10 Essential (primary) hypertension; K57.30 Diverticulosis of large intestine without perforation or abscess without bleeding; M25.78 Osteophyte, vertebrae; M48.061 Spinal stenosis, lumbar region without neurogenic claudication; Q60.3 Renal hypoplasia, unilateral; K76.0 Fatty (change of) liver, not elsewhere classified; Z79.82 Long term (current) use of aspirin; Z79.84 Long term (current) use of oral hypoglycemic drugs; Z79.899 Other long term (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
CPT/HCPCS: 71045; 71275; 74177; 80048; 80076; 82550; 82553; 83690; 83880; 84484; 85025; 93005; 93041; 94760; 99285; Q9967

== ENCOUNTER → 2019-02-05 | Outpatient (CLI) | payer MEDICARE ==
[~2019-02-05] MED LIST changes: +CLAR10CA3 PO; -LISI20TA PO; +LISI20TA19 PO; +MELO15TA28; +MONT10TA2 PO; +NAPR-837 PO
[2019-02-05 09:31] LABS: HEMATOCRIT 40.1 % (36.0-47.0); HEMOGLOBIN 13.8 g/dl (12.0-15.5); MEAN CORPUSCULAR HEMOGLOBIN 30.5 pg (27.0-33.0); MEAN CORPUSCULAR HGB CONC 34.4 g/dl (32.0-36.5); MEAN CORPUSCULAR VOLUME 88.7 fl (80.0-96.0); PLATELET COUNT, AUTOMATED 278 10^3/uL (150-450); RED BLOOD COUNT 4.52 10^6/uL (4.00-5.40); WHITE BLOOD COUNT 15.1 10^3/uL (4.0-10.0)
[2019-02-05 10:02] LABS: ALT/SGPT 16 U/L (12-78); BILIRUBIN,TOTAL 0.6 MG/DL (0.2-1.0); BLOOD UREA NITROGEN 14 MG/DL (7-18); CALCIUM LEVEL 8.7 MG/DL (8.8-10.2); CARBON DIOXIDE LEVEL 24 MEQ/L (21-32); CHLORIDE LEVEL 105 MEQ/L (98-107); CHOLESTEROL LEVEL 138 MG/DL (<200); CHOLESTEROL RISK RATIO 3.136 (<5); CREATININE FOR GFR 0.82 MG/DL (0.55-1.30); GLOMERULAR FILTRATION RATE > 60.0 (>45); GLUCOSE, FASTING 258 MG/DL (70-100); HDL CHOLESTEROL 44 MG/DL (>40); LDL CHOLESTEROL 71 MG/DL (<100); NON-HDL-C 94 MG/DL; POTASSIUM SERUM 4.1 MEQ/L (3.5-5.1); SODIUM LEVEL 139 MEQ/L (136-145); TOTAL PROTEIN 6.3 GM/DL (6.4-8.2); TRIGLYCERIDES LEVEL 113 MG/DL (<150)
[2019-02-05 11:48] LABS: TOTAL 25(OH) VITAMIN D 19.9 NG/ML (30.0-100.0)
[2019-02-05 15:03] LABS: HEMOGLOBIN A1c 10.4 %
== END ==
LOC: M LAB 08:35
PROVIDERS: ATTEND Family Medicine
DX: D64.9 Anemia, unspecified (principal); Z79.899 Other long term (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

== ENCOUNTER 2019-05-24 16:56 | Emergency (ER) | payer MEDICARE ==
[~2019-05-24] VITALS: Ht 162.6 cm; Wt 82.7 kg
[2019-05-24 16:58] VITALS: BP 119/67
[2019-05-24] MEDS ORDERED: TERC0.4C2 PV (18:18)
[2019-05-24] MEDS ORDERED: NYST10CR TOP (18:18)
[2019-05-24] MEDS ORDERED: AUGM875T28 PO (18:50)
[2019-05-24] MEDS ORDERED: AUGMENTIN 875 MG TAB PO ONE (19:00)
== END 2019-05-24 19:27 | disposition home or self-care (01) ==
LOC: M ED 16:56
DX: S31.41XA Laceration without foreign body of vagina and vulva, initial encounter (principal); X58.XXXA Exposure to other specified factors, initial encounter; Y92.89 Other specified places as the place of occurrence of the external cause; Y93.89 Activity, other specified; Y99.8 Other external cause status; N76.89 Other specified inflammation of vagina and vulva; E11.9 Type 2 diabetes mellitus without complications; I10 Essential (primary) hypertension; M19.90 Unspecified osteoarthritis, unspecified site; G47.33 Obstructive sleep apnea (adult) (pediatric); Z79.82 Long term (current) use of aspirin; Z79.899 Other long term (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; Z79.84 Long term (current) use of oral hypoglycemic drugs

== ENCOUNTER 2019-06-19 08:32 | Day surgery (SDC) | payer MEDICARE ==
[~2019-06-19] VITALS: Ht 157.5 cm; Wt 84.7 kg
[~2019-06-19 08:32] MED LIST changes: +ACETAMINOPHEN 1000MG 100ML IV BTL (OFIRMEV) (J0131 PER 10MG) As Ordered ONE; +AUGM875T28 PO; +LIDOCAINE 2% INJ 100 MG/5 ML SDV (FOR ANES.) As Ordered ONE; +LR 1,000 ML IV ONE; +MIDAZOLAM INJ 2 MG/2 ML VIAL (J2250) As Ordered ONE; +MIDAZOLAM INJ 2 MG/2 ML VIAL (J2250) IV SCH; +NYST10CR TOP; +ONDANSETRON 4MG/2ML VIAL (J2405) As Ordered ONE; +ROCURONIUM BROMIDE 50 MG/5 ML VIAL As Ordered ONE; +SIMV40TA20 PO; +SING5CHW23 PO; +TERC0.4C2 PV; +ceFAZolin SOD 2 GM in IV 1 EA IV ONE; +dexameTHASONE 4 MG/ML 1ML VIAL (J1100) As Ordered ONE; +fentaNYL 100 MCG/2 ML INJECTION (J3010) IV SCH; +fentaNYL 250 MCG/5 ML INJECTION (J3010) As Ordered ONE; +propofoL 200 MG/20 ML VIAL As Ordered ONE
[2019-06-19] MEDS ORDERED: ROPIvacaine 0.5% 30 ML INJECTION (J2795 PER 1MG) ONE (08:33)
[2019-06-19] MEDS ORDERED: dexameTHASONE 10 MG/1 ML VIAL PRES.FREE (J1100) ONE (08:33)
[2019-06-19] MEDS ORDERED: LIDOCAINE 1% MDV 20ML VIAL ONE (08:33)
[2019-06-19] MEDS ORDERED: ACETAMINOPHEN 1000MG 100ML IV BTL (OFIRMEV) (J0131 PER 10MG) As Ordered ONE (08:48)
[2019-06-19] MEDS ORDERED: HumaLOG INSULIN (NovoLOG) PER UNIT As Ordered ONE (09:40)
[2019-06-19] MEDS ORDERED: MIDAZOLAM INJ 2 MG/2 ML VIAL (J2250) As Ordered ONE (09:41)
[2019-06-19] MEDS ORDERED: fentaNYL 100 MCG/2 ML INJECTION (J3010) As Ordered ONE (09:41)
[2019-06-19] MEDS ORDERED: HumaLOG INSULIN (NovoLOG) PER UNIT SC ONE ×2 (09:45→15:30)
[2019-06-19] MEDS ORDERED: LIDOCAINE 1% MDV 20ML VIAL As Ordered ONE (11:00)
[2019-06-19] MEDS ORDERED: SUGAMMADEX SODIUM 500 MG/5 ML VIAL (BRIDION) As Ordered ONE (11:48)
[2019-06-19] MEDS ORDERED: LIDOCAINE 2% INJ 100 MG/5 ML SDV (FOR ANES.) As Ordered ONE (11:49)
[2019-06-19] MEDS ORDERED: LR 1,000 ML IV SCH (14:30)
[2019-06-19] MEDS ORDERED: PERCOCET 5MG/325MG TAB PO PRN (14:30)
[2019-06-19] MEDS: LR 1,000 ML IV SCH (14:30)
[2019-06-19] MEDS ORDERED: ONDANSETRON 4MG/2ML VIAL (J2405) IV PRN ×2 (14:30→17:15)
[2019-06-19] MEDS ORDERED: HYDROMORPHONE HCL 0.5 MG/ 0.5 ML SYRINGE (J1170 PER 1) IV PRN (14:30)
[2019-06-19] MEDS ORDERED: MIDAZOLAM INJ 2 MG/2 ML VIAL (J2250) IV ONE (14:30)
[2019-06-19] MEDS ORDERED: fentaNYL 100 MCG/2 ML INJECTION (J3010) IV PRN (14:30)
[2019-06-19] MEDS ORDERED: fentaNYL 100 MCG/2 ML INJECTION (J3010) IV ONE (14:30)
[2019-06-19] MEDS ORDERED: amLODIPine 10 MG TAB PO ONE (15:45)
[2019-06-19 16:37] LABS: HEMOGLOBIN 14.2 g/dl (12.0-15.5); MEAN CORPUSCULAR HEMOGLOBIN 28.7 pg (27.0-33.0); MEAN CORPUSCULAR HGB CONC 32.3 g/dl (32.0-36.5); MEAN CORPUSCULAR VOLUME 88.9 fl (80.0-96.0); PLATELET COUNT, AUTOMATED 304 10^3/uL (150-450); RED BLOOD COUNT 4.95 10^6/uL (4.00-5.40); WHITE BLOOD COUNT 11.4 10^3/uL (4.0-10.0)
--- NOTE | 2019-06-19 16:48 | REP ---
CHEST, PORTABLE: AP portable view of the chest is performed. COMPARISON: 11/29/2018 There is moderate elevation of the right hemidiaphragm. I see no acute infiltrate or pulmonary edema. Heart is not significantly enlarged. There is mild calcification of the thoracic aorta. Mediastinal silhouette is unremarkable. There are degenerative changes of the spine. IMPRESSION: No acute infiltrate. Electronically Signed by Ricki Kirkpatrick MD 06/19/2019 05:31 P
[2019-06-19] MEDS ORDERED: oxyCODONE 5MG TAB PO PRN (17:00)
[2019-06-19] MEDS ORDERED: LORATADINE 10 MG TAB PO PRN (17:00)
[2019-06-19] MEDS ORDERED: MONTELUKAST 5 MG CHEWABLE TABLET PO PRN (17:00)
[2019-06-19 17:06] LABS: BLOOD UREA NITROGEN 20 MG/DL (7-18); CALCIUM LEVEL 8.9 MG/DL (8.8-10.2); CARBON DIOXIDE LEVEL 24 MEQ/L (21-32); CHLORIDE LEVEL 103 MEQ/L (98-107); CK-MB VALUE MASS 2.8 NG/ML (<3.6); CPK CREATINE PHOSPHOKINASE 176 U/L (26-192); CREATININE FOR GFR 1.08 MG/DL (0.55-1.30); GLOMERULAR FILTRATION RATE 53.9 (>45); GLUCOSE, FASTING 294 MG/DL (70-100); MB/CK RELATIVE INDEX 1.59 (< OR =4); POTASSIUM SERUM 3.2 MEQ/L (3.5-5.1); SODIUM LEVEL 138 MEQ/L (136-145)
[2019-06-19] MEDS ORDERED: GLUCAGON FOR INJ 1 MG VIAL (J1610) SC PRN (17:15)
[2019-06-19] MEDS ORDERED: GLUCOSE 4 GM CHEW TABLET PO PRN (17:15)
[2019-06-19] MEDS ORDERED: DEXTROSE 50% 50 ML SYRINGE IV PRN (17:15)
--- NOTE | 2019-06-19 17:18 | CR.PDOC ---
General Date of Consultation: Jun 19, 2019 Consultation REASON FOR CONSULTATION/CHIEF COMPLAINT: . HISTORY OF PRESENT ILLNESS: Patient is 68 years old female with past history of hyperlipidemia, obstructive sleep apnea, hypertension, type 2 diabetes not on insulin present hospital for planned rotator cuff surgery. On 06/19/19 as surgery was successfully done, after surgery patient developed hypertensive urgency, her blood pressure was stabilized after 10 mg of amlodipine. Of note patient was noncompliant to her blood pressure medications and diabetes medications. HbA1c was significantly elevated to 11. ALLERGIES: Please see below. HOME MEDICATIONS: Please see below. PAST MEDICAL HISTORY: As stated in HPI PAST SURGICAL HISTORY: None FAMILY HISTORY: Unable to obtain due to somnolence of the patient SOCIAL HISTORY: Unable to obtain due to somnolence of the patient REVIEW OF SYSTEMS: Unable to obtain due to somnolence of the patient PHYSICAL EXAMINATION: VITAL SIGNS: Please see below. GENERAL APPEARANCE: Somnolent female HEENT: PERRLA, EOMI RESPIRATORY: CTA CARDIOVASCULAR: S1-S2 ABDOMEN: Nontender nondistended EXTREMITIES: No edema NEUROLOGICAL: Follows simple command, moves 4 limbs LABORATORY DATA: Please see below. ASSESSMENT/PLAN: Patient is 68 years old female with past history of hyperlipidemia, obstructive sleep apnea, hypertension, type 2 diabetes not on insulin present hospital for planned rotator cuff surgery. On 06/19/19 as surgery was successfully done, after surgery patient developed hypertensive urgency, her blood pressure was stabilized after 10 mg of amlodipine. Of note patient was noncompliant to her blood pressure medications and diabetes medications. HbA1c was significantly elevated to 11. Hypertension emergency Resolved after amlodipine I restarted home cardioprotective medications Obstructive sleep apnea CPAP overnight Diabetes mellitus HbA1c 11 Patient not compliant with her medications Diabetes is diet Insulin sliding scale Hyperlipidemia Atorvastatin 60 mg daily Vital Signs/I&O Vital Signs Date Time Temp Pulse Resp B/P (MAP) Pulse Ox O2 Delivery O2 Flow Rate FiO2 06/19/19 16:20 107 16 148/70 (96) 95 Nasal Cannula 3 06/19/19 15:50 97.0 Laboratory Data Labs 24H Laboratory Tests 2 06/19/19 09:28: Bedside Glucose (Misc Panel) 243H 06/19/19 14:58: Bedside Glucose (Misc Panel) 315H 06/19/19 15:52: Nucleated Red Blood Cells % (auto) 0.0, Anion Gap 11, Glomerular Filtration Rate 53.9, Calcium Level 8.9, Total Creatine Kinase 176, Creatine Kinase MB 2.8, Creatine Kinase MB Relative Index 1.59 06/19/19 17:06: Bedside Glucose ([facility] Panel) 251H CBC/BMP Laboratory Tests 06/19/19 15:52 Allergies Coded Allergies: No Known Allergies (Unverified , 06/19/19) Home Medications Scheduled Amlodipine Besylate (Amlodipine Besylate) 10 Mg Tab, 10 MG PO DAILY, (Reported) Aspirin (Aspirin EC) 81 Mg Tab, 81 MG PO DAILY, #30 (Reported) Gabapentin (Gabapentin) 100 Mg Cap, 300 MG PO TID, (Reported) Glipizide (Glipizide ER) 5 Mg Tab, 10 MG PO BID, (Reported) Lisinopril/Hydrochlorothiazide (Lisinopril-Hctz 20-12.5 mg Tab) 1 Tab Tab, 1 TAB PO DAILY, (Reported) Loratadine (Claritin) 10 Mg Capsule, 10 MG PO DAILYPRN, (Reported) Meloxicam (Meloxicam) 15 Mg Tablet, DAILY, (Reported) Metformin HCl (Metformin HCl) 1,000 Mg Tab, 1,000 MG PO BID, (Reported) Montelukast Sodium (Singulair) 5 Mg Tab.chew, 10 MG PO DAILYPRN, (Reported) Nystatin (Nystatin) 15 Gm Cream..g., 1 APLCT TOP TID for 5 Days, #15 (Reported) apply to affected area(s) Potassium Chloride (K-Tab ER) 10 Meq Tab, 10 MEQ PO BID, (Reported) Ranitidine HCl (Ranitidine HCl) 150 Mg Tab, 2 TAB PO DAILY, (Reported) Simvastatin (Simvastatin) 40 Mg Tablet, 80 MG PO DAILY, (Reported) Terconazole (Terconazole) 45 Gm Cream.appl, 1 APLCTR PV QPM for 7 Days, #45 (Reported) SACHA SNOW DO Jun 19, 2019 17:18
[2019-06-19] MEDS: HumaLOG INSULIN (NovoLOG) PER UNIT SC SCH (17:30)
[2019-06-19 17:47] LABS: TROPONIN I < 0.02 NG/ML (< 0.10)
[2019-06-19] MEDS ORDERED: hydroCHLOROthiazide 12.5 MG CAPSULE PO ONE (18:00)
[2019-06-19] MEDS ORDERED: lisinopriL 20 MG TAB PO ONE (18:00)
[2019-06-19 18:05] VITALS: BP 157/106
[2019-06-19 18:35] VITALS: BP 155/105
[2019-06-19 18:50] VITALS: BP 142/98
[2019-06-19 20:02] VITALS: BP 149/100
[2019-06-19] MEDS: POTASSIUM CHLORIDE 10 MEQ SR TABLET PO SCH (20:42)
[2019-06-19] MEDS: ACETAMINOPHEN 500 MG TAB PO SCH (20:42)
[2019-06-19] MEDS: GABAPENTIN 100 MG CAP PO SCH (20:42)
[2019-06-19] MEDS ORDERED: HumaLOG INSULIN (NovoLOG) PER UNIT SC SCH (21:00)
--- NOTE | 2019-06-19 21:15 | RO ---
DATE OF PROCEDURE: 06/19/2019 PREOPERATIVE DIAGNOSES: 1. Right shoulder rotator cuff tear. 2. Right shoulder superior labral tear. 3. Right shoulder arthritis. 4. Right shoulder impingement. POSTOPERATIVE DIAGNOSES: 1. Right shoulder rotator cuff tear. 2. Right shoulder superior labral tear. 3. Right shoulder arthritis. 4. Right shoulder impingement. PROCEDURE: 1. Right shoulder arthroscopic rotator cuff repair including subscapularis. 2. Right shoulder open subpectoral biceps tenodesis. 3. Right shoulder extensive debridement including chondroplasty, labral debridement and subacromial decompression with an acromioplasty. 4. Right shoulder arthroscopic distal clavicle excision. SURGEON: Riley Cruz MD HEAD MVA REACTOR OPERATOR: ALEXANDER Contreras ANESTHESIA: General with preoperative nerve block. IV FLUIDS: Lactated Ringer's. ESTIMATED BLOOD LOSS: 10 mL. IMPLANTS: Arthrex proximal biceps button times one. Arthrex 5.5 mm Corkscrew anchors times two and 5.5 mm SwiveLock anchors times two. CLOSURE: Nylon and Monocryl. DESCRIPTION OF PROCEDURE: The patient was identified in the preoperative holding area, the right shoulder marked by myself. She had an interscalene nerve block. She was brought to the operating room, placed supine on a well-padded operating room (OR) table with a beanbag. General anesthesia induced. She had 180 degrees of forward flexion of the right shoulder, 90 of external rotation. No increased anterior-posterior translation. She was placed in the left side down lateral decubitus position with an axillary roll, and all bony prominences were well padded. Bilateral Venodyne boots for deep vein thrombosis (DVT) prophylaxis. The right arm was placed into the Arthrex STaR Sleeve lateral decubitus traction martinez, 10 pounds of traction. The right shoulder was then prepped and draped in the normal sterile fashion with ChloraPrep. Prior to incision, a time-out was performed per hospital protocol. Cortney was present for the entire procedure and participated in all essential portions of the procedure. This included patient positioning and draping, holding the arthroscope, holding retractors during the biceps tenodesis, assisting with the whip stitching and wound closure. She was crucial in assisting with rotator cuff anchor placement, suture management, suture retrieval, wound closure and applying the dressing and sling. The right shoulder was insufflated with lactated Ringer's. A standard posterior viewing portal made with 11 blade. 30 degree arthroscope was introduced into the joint. Diagnostic arthroscopy revealed grade 2 chondromalacia in the glenohumeral joint, diffuse labral tearing as well. There was a massive tear of the supraspinatus including the infraspinatus. There was significant tearing of the upper border of subscapularis. There was split tearing of the long head of the biceps. An anterior working portal was established, and a tenotomy was performed of the biceps tendon. The stump was debrided with a shaver. I then performed a labral debridement of the superior and anterior labrum and a chondroplasty to primarily the glenoid. Rotator cuff grasper was used to grab the subscapularis, confirming that the upper half had torn and retracted medially. Middle glenohumeral ligament was released. An accessory superolateral portal was created, shaver used to clear soft tissue off the lesser tuberosity, and then a Scorpion used to pass FiberTape through the central and then the upper subscapularis, two passes in a horizontal mattress fashion. These were loaded through a 4.75 mm PEEK SwiveLock anchor. An awl was used to create a socket in the lesser tuberosity. The anchor was docked, sutures tensioned. Treynor inserted by hand with excellent fixation. This nicely restored the subscapularis. I then proceeded with an open biceps tenodesis, incision made just lateral to the axilla after injecting 10 mL of 1% lidocaine. Subcutaneous dissection with electrocautery and Metzenbaum scissors and then the biceps fascia was opened carefully. Long head of the biceps was dissected out, and there was extensive tearing throughout the tendon. Proximal biceps kit was opened, running locking whip stitch placed with a FiberLoop. Excess tendon trimmed and sent to pathology. Sutures loaded through the proximal biceps button per routine. Unicortical drill hole drilled with a spade tip drill bit within the bicipital groove, anchor was docked, sutures tensioned, and this nicely flipped the button, docked the tendon along the groove. A curve-free needle used to pass one limb of suture back to the tendon, knots tied by hand to lock the construct in place. I then extensively irrigated, closed in a layered fashion with #2-0 Vicryl, #2-0 Vicryl, #3-0 Monocryl, Steri-Strips at the end of the case. Arthroscope then placed in the subacromial space where there was moderate bursitis and a massive tear of the supra and infraspinatus. CA ligament was partially released. There was a large subacromial spur. I performed a formal acromioplasty with the bur. Attention was then turned towards the distal clavicle excision where there were extensive degenerative changes. A bur was used to remove approximately 6 mm of distal clavicle to create a nice open space. The arthroscope was placed through the anterior portal to ensure no posterior-superior bone remained. A rotator cuff grasper was then used to manipulate the supraspinatus tear. This was an L-shaped configuration. A Ring curette was used to scrape all soft tissue off the tuberosity to create a bleeding surface. The entire leading edge of the tendon was significantly frayed and poor quality, so a shaver was used to carefully remove the devitalized tissue. A 5.5 Corkscrew was then placed in the anterior aspect of the greater tuberosity about a centimeter off the articular surface. All four suture limbs were passed in a horizontal mattress fashion with the Scorpion. The most anterior sutures were cut with a gem cutter. The more posterior ones were preserved for the lateral row. Now this significantly closed down the size of the crescent-shaped tear. A second 5.5 Corkscrew was placed further posterior in the tuberosity with good fixation. All four suture limbs were passed with the Scorpion, the knots tied with the knot pusher using alternating half hitches. I also placed FiberLink in the posterior third of the tear to avoid a dog ear. Next, appropriate sutures from the medial row brought out to the anterolateral cannula, loaded through a 5.5 SwiveLock anchor, socket created with the awl, anchor docked, sutures tensioned, anchor inserted by hand with excellent fixation. These steps were repeated with the posterior sutures to complete the double row repair. There were no dog ears. The shoulder was gently rotated, and there was no lift off or buckling. Shoulder was irrigated and drained. Portals closed with nylon suture. Bulky sterile dressing applied. At the time of this dictation, the patient is being placed into her sling and will be extubated shortly.
[2019-06-19 22:17] VITALS: BP 145/98
[2019-06-19 23:44] VITALS: BP 124/71
[2019-06-20] MEDS: LR 1,000 ML IV SCH ×2 (00:30→10:30)
[2019-06-20 02:41] VITALS: BP 135/90
[2019-06-20] MEDS: ACETAMINOPHEN 500 MG TAB PO SCH (06:02)
[2019-06-20 06:13] VITALS: BP 144/89
[2019-06-20] MEDS ORDERED: MORP15TASA PO (06:15)
[2019-06-20] MEDS ORDERED: OXYC-517 PO (06:15)
[2019-06-20] MEDS ORDERED: MORPHINE 15 MG SA TAB PO SCH (08:00)
[2019-06-20] MEDS: POTASSIUM CHLORIDE 10 MEQ SR TABLET PO SCH (08:02)
[2019-06-20] MEDS: HumaLOG INSULIN (NovoLOG) PER UNIT SC SCH ×2 (08:03→12:00)
[2019-06-20] MEDS: GABAPENTIN 100 MG CAP PO SCH (08:05)
[2019-06-20 08:07] VITALS: BP 153/97
[2019-06-20] MEDS ORDERED: ASPIRIN 81 MG ENTERIC TAB PO SCH (09:00)
[2019-06-20] MEDS ORDERED: ATORVASTATIN 20 MG TAB PO SCH (09:00)
[2019-06-20] MEDS ORDERED: OMEPRAZOLE 20 MG CAP PO SCH (09:00)
[2019-06-20] MEDS ORDERED: SIMVASTATIN 40 MG TAB PO SCH (09:00)
[2019-06-20] MEDS ORDERED: amLODIPine 10 MG TAB PO SCH (09:00)
[2019-06-20] MEDS ORDERED: hydroCHLOROthiazide 12.5 MG CAPSULE PO SCH (09:00)
[2019-06-20] MEDS ORDERED: lisinopriL 20 MG TAB PO SCH (09:00)
[2019-06-20 10:00] VITALS: BP 156/95
--- NOTE | 2019-06-20 11:00 | ECGEPIP ---
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
== END 2019-06-20 13:40 | disposition home or self-care (01) ==
LOC: M SDC 08:32 → M MS5PR 17:55 → M SDC 06-20 13:40
PROVIDERS: ATTEND Orthopaedic Surgery
DX: M75.101 Unspecified rotator cuff tear or rupture of right shoulder, not specified as traumatic (principal); S46.811A Strain of other muscles, fascia and tendons at shoulder and upper arm level, right arm, initial encounter; X58.XXXA Exposure to other specified factors, initial encounter; Y92.89 Other specified places as the place of occurrence of the external cause; M19.011 Primary osteoarthritis, right shoulder; M25.811 Other specified joint disorders, right shoulder; I16.0 Hypertensive urgency; E11.65 Type 2 diabetes mellitus with hyperglycemia; Z91.14 Patient's other noncompliance with medication regimen; D64.9 Anemia, unspecified; E78.5 Hyperlipidemia, unspecified; G47.33 Obstructive sleep apnea (adult) (pediatric); M54.9 Dorsalgia, unspecified; G62.9 Polyneuropathy, unspecified; Z79.899 Other long term (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; Z79.82 Long term (current) use of aspirin; Z79.84 Long term (current) use of oral hypoglycemic drugs
CPT/HCPCS: 23430; 29823; 29824; 29826; 29827; 36415; 64415; 71045; 80048; 82550; 82553; 84484; 85027; 88304; 93005; C1713; J0131; J0690; J1100; J2250; J2405; J2795; J3010

== ENCOUNTER → 2019-10-02 | Outpatient (CLI) | payer MEDICARE ==
[~2019-10-02] MED LIST changes: -ACETAMINOPHEN 1000MG 100ML IV BTL (OFIRMEV) (J0131 PER 10MG) As Ordered ONE; -LIDOCAINE 2% INJ 100 MG/5 ML SDV (FOR ANES.) As Ordered ONE; -LR 1,000 ML IV ONE; -MIDAZOLAM INJ 2 MG/2 ML VIAL (J2250) As Ordered ONE; -MIDAZOLAM INJ 2 MG/2 ML VIAL (J2250) IV SCH; -MONT10TA2 PO; +MONT10TA4 PO; +MORP15TASA PO; -ONDANSETRON 4MG/2ML VIAL (J2405) As Ordered ONE; +OXYC-517 PO; -ROCURONIUM BROMIDE 50 MG/5 ML VIAL As Ordered ONE; -ceFAZolin SOD 2 GM in IV 1 EA IV ONE; -dexameTHASONE 4 MG/ML 1ML VIAL (J1100) As Ordered ONE; -fentaNYL 100 MCG/2 ML INJECTION (J3010) IV SCH; -fentaNYL 250 MCG/5 ML INJECTION (J3010) As Ordered ONE; -propofoL 200 MG/20 ML VIAL As Ordered ONE
[2019-10-02 11:17] LABS: BASO # 0.1 10^3/uL (0.0-0.2); BASO % 0.6 % (0.0-1.0); EOS # 0.6 10^3/uL (0.0-0.5); EOS % 6.6 % (0.0-3.0); HEMOGLOBIN 12.9 g/dl (12.0-15.5); LYMPH # 1.8 10^3/uL (1.5-5.0); LYMPH % 20.1 % (24.0-44.0); MEAN CORPUSCULAR HEMOGLOBIN 28.6 pg (27.0-33.0); MEAN CORPUSCULAR HGB CONC 33.1 g/dl (32.0-36.5); MEAN CORPUSCULAR VOLUME 86.5 fl (80.0-96.0); MONO # 0.6 10^3/uL (0.0-0.8); MONO % 6.9 % (0.0-5.0); NEUTROPHILS # 5.9 10^3/uL (1.5-8.5); NEUTROPHILS % 65.4 % (36.0-66.0); PLATELET COUNT, AUTOMATED 285 10^3/uL (150-450); RED BLOOD COUNT 4.51 10^6/uL (4.00-5.40); WHITE BLOOD COUNT 9.1 10^3/uL (4.0-10.0)
[2019-10-02 11:45] LABS: ALBUMIN 3.5 GM/DL (3.2-5.2); ALT/SGPT 24 U/L (12-78); BILIRUBIN,TOTAL 0.5 MG/DL (0.2-1.0); BLOOD UREA NITROGEN 17 MG/DL (7-18); CALCIUM LEVEL 8.7 MG/DL (8.8-10.2); CARBON DIOXIDE LEVEL 31 MEQ/L (21-32); CHLORIDE LEVEL 99 MEQ/L (98-107); CHOLESTEROL LEVEL 137 MG/DL (<200); CHOLESTEROL RISK RATIO 4.151 (<5); CREATININE FOR GFR 0.92 MG/DL (0.55-1.30); GLOMERULAR FILTRATION RATE > 60.0 (>45); GLUCOSE, FASTING 265 MG/DL (70-100); HDL CHOLESTEROL 33 MG/DL (>40); LDL CHOLESTEROL 56 MG/DL (<100); MAGNESIUM LEVEL 1.8 MG/DL (1.8-2.4); NON-HDL-C 104 MG/DL; POTASSIUM SERUM 3.5 MEQ/L (3.5-5.1); SODIUM LEVEL 140 MEQ/L (136-145); TRIGLYCERIDES LEVEL 240 MG/DL (<150)
== END ==
LOC: M LAB 10:36
PROVIDERS: ATTEND Nurse Practitioner Adult Health
DX: E11.65 Type 2 diabetes mellitus with hyperglycemia (principal)

== ENCOUNTER → 2020-01-06 | Outpatient (CLI) | payer MEDICARE ==
[~2020-01-06] MED LIST changes: -AMLO10TA5 PO; +AMLO1TAB25 PO; -LISI20TA19 PO; +LISI20TA35 PO
[2020-01-06 08:26] LABS: BASO # 0.1 10^3/uL (0.0-0.2); BASO % 0.5 % (0.0-1.0); EOS # 0.6 10^3/uL (0.0-0.5); EOS % 5.9 % (0.0-3.0); HEMATOCRIT 39.2 % (36.0-47.0); HEMOGLOBIN 13.4 g/dl (12.0-15.5); LYMPH # 2.1 10^3/uL (1.5-5.0); LYMPH % 20.2 % (24.0-44.0); MEAN CORPUSCULAR HEMOGLOBIN 29.1 pg (27.0-33.0); MEAN CORPUSCULAR HGB CONC 34.2 g/dl (32.0-36.5); MONO # 0.6 10^3/uL (0.0-0.8); NEUTROPHILS % 67.1 % (36.0-66.0); PLATELET COUNT, AUTOMATED 290 10^3/uL (150-450); RED BLOOD COUNT 4.61 10^6/uL (4.00-5.40); WHITE BLOOD COUNT 10.4 10^3/uL (4.0-10.0)
[2020-01-06 09:01] LABS: HEMOGLOBIN A1c 10.7 %
[2020-01-06 09:40] LABS: ALBUMIN 3.6 GM/DL (3.2-5.2); BILIRUBIN,TOTAL 0.4 MG/DL (0.2-1.0); CALCIUM LEVEL 9.1 MG/DL (8.8-10.2); CHOLESTEROL RISK RATIO 4.322 (<5); GLOMERULAR FILTRATION RATE 58.7 (>45); MAGNESIUM LEVEL 1.7 MG/DL (1.8-2.4); POTASSIUM SERUM 3.3 MEQ/L (3.5-5.1); THYROID STIMULATING HORMONE 2.37 uIU/ML (0.358-3.740); TOTAL PROTEIN 7.2 GM/DL (6.4-8.2)
== END ==
LOC: M LAB 07:48
PROVIDERS: ATTEND Nurse Practitioner Adult Health
DX: E11.65 Type 2 diabetes mellitus with hyperglycemia (principal)

== ENCOUNTER → 2020-04-08 | Outpatient (CLI) | payer MEDICARE ==
[2020-04-08 11:43] LABS: BASO # 0.1 10^3/uL (0.0-0.2); BASO % 0.7 % (0.0-1.0); EOS # 0.4 10^3/uL (0.0-0.5); EOS % 5.6 % (0.0-3.0); HEMOGLOBIN 12.3 g/dl (12.0-15.5); LYMPH # 1.9 10^3/uL (1.5-5.0); LYMPH % 25.3 % (24.0-44.0); MEAN CORPUSCULAR HEMOGLOBIN 28.5 pg (27.0-33.0); MEAN CORPUSCULAR HGB CONC 32.4 g/dl (32.0-36.5); MONO # 0.5 10^3/uL (0.0-0.8); NEUTROPHILS # 4.6 10^3/uL (1.5-8.5); PLATELET COUNT, AUTOMATED 291 10^3/uL (150-450); RED BLOOD COUNT 4.32 10^6/uL (4.00-5.40); WHITE BLOOD COUNT 7.5 10^3/uL (4.0-10.0)
[2020-04-08 12:06] LABS: HEMOGLOBIN A1c 10.2 %
[2020-04-08 12:19] LABS: ALBUMIN 3.4 GM/DL (3.2-5.2); ALT/SGPT 28 U/L (12-78); BILIRUBIN,TOTAL 0.4 MG/DL (0.2-1.0); BLOOD UREA NITROGEN 19 MG/DL (7-18); CALCIUM LEVEL 8.7 MG/DL (8.8-10.2); CARBON DIOXIDE LEVEL 27 MEQ/L (21-32); CHLORIDE LEVEL 107 MEQ/L (98-107); CHOLESTEROL LEVEL 238 MG/DL (<200); CREATININE FOR GFR 0.89 MG/DL (0.55-1.30); GLOMERULAR FILTRATION RATE > 60.0 (>45); GLUCOSE, FASTING 163 MG/DL (70-100); HDL CHOLESTEROL 34 MG/DL (>40); LDL CHOLESTEROL 155 MG/DL (<100); MAGNESIUM LEVEL 1.9 MG/DL (1.8-2.4); NON-HDL-C 204 MG/DL; POTASSIUM SERUM 3.9 MEQ/L (3.5-5.1); SODIUM LEVEL 142 MEQ/L (136-145); TOTAL PROTEIN 7.1 GM/DL (6.4-8.2); TRIGLYCERIDES LEVEL 246 MG/DL (<150)
== END ==
LOC: M LAB 10:13
PROVIDERS: ATTEND Nurse Practitioner Adult Health
DX: E78.00 Pure hypercholesterolemia, unspecified (principal); E11.65 Type 2 diabetes mellitus with hyperglycemia; K21.9 Gastro-esophageal reflux disease without esophagitis; E66.01 Morbid (severe) obesity due to excess calories; Z79.899 Other long term (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

== ENCOUNTER 2020-06-30 00:21 | Emergency (ER) | payer MEDICARE ==
[~2020-06-30] VITALS: Ht 152.4 cm; Wt 83.6 kg
[~2020-06-30 00:21] MED LIST changes: -LISI-542 PO; +LISI-898 PO; +MONT10TA10 PO; -MONT10TA4 PO
--- OUTSIDE RECORDS SUMMARY | 2020-06-30 00:38 | CCD | Continuity of Care Document ---
Author Author Chely LAZO DPM Organization Unknown Address [address] [place] [address], [facility] [address] [place] [address] Phone [phone] Care Team Providers Care Narcotics Investigator Name Role Phone Angie Bowling AUTM [phone] Problems Description No Information Available Social History Type Date Description Comments Sex Unknown ETOH Use Denies alcohol use Tobacco Use Start: Unknown Patient has never smoked Allergies, Adverse Reactions, Alerts Description No Known Drug Allergies Medications Active Medications SIG Qnty Indications Ordering Provide r Date Augmentin 875-125mg Tablets 1 by mouth twice a day 14tabs Riley Lazo DPM 07/27/2016 Amoxicillin/Clavulanate Potassium 875-125mg Tablets Unknown Acetaminophen/Codeine Phosphate 300-30mg Tablets Unknown Simvastatin 80mg Tablets Unknown Lisinopril-Hydrochlorothiazide 20-12.5mg Tablets Unknown Amlodipine Besylate 10mg Tablets Unknown Gabapentin 100mg Capsules Unknown Hydrocodone-Acetaminophen 7.5-325mg Tablets Unknown Potassium Chloride ER 10Meq Tablets ER Unknown Diazepam 5mg Tablets Unknown Ibuprofen 400mg Tablets Unknown Ranitidine HCL 300mg Tablets Unknown Immunizations Description No Information Available Vital Signs Date Vital Result Comment 06/02/2020 7:51am Weight 177.38 lb BP Systolic 114 mmHg BP Diastolic 68 mmHg Heart Rate 96 /min 07/27/2016 11:05am Height 63 inches 5'3" Weight 182.00 lb BP Systolic 138 mmHg BP Diastolic 70 mmHg Heart Rate 74 /min BMI (Body Mass Index) 32.2 kg/m2 Results Description No Information Available Procedures Date Code Description Status 06/02/2020 85000 Debridement 6-10 Nails Electric Completed 06/02/2020 86396 Paring/Cutting Benign Single Les n Completed Medical Devices Description No Information Available Encounters Type Date Location Provider Dx Diagnosis Office Visit 06/02/2020 3:00p [facility] Riley Lazo DPM M21.611 Bunion of right foot E11.42 Type 2 diabetes mellitus wit h diabetic polyneuropathy B35.1 Tinea unguium L84 Corns and callosities Assessments Date Code Description Provider 06/02/2020 M21.611 Bunion of right foot Riley james, K[facility] 06/02/2020 E11.42 Type 2 diabetes mellitus with di abetic polyneuropathy Riley Lazo DPM 06/02/2020 B35.1 Tinea unguium Riley Lazo DPM 06/02/2020 L84 Corns and callosities Riley Lazo DPM Plan of Treatment Future Appointment(s):* 08/08/2020 2:30 pm - Riley Lazo DPM at [facility] Functional Status Description No Information Available Mental Status Description No Information Available Referrals Description No Information Available
--- OUTSIDE RECORDS SUMMARY | 2020-06-30 00:38 | CCD | Continuity of Care Document ---
Author Author Chely SPAULDING DPM Organization Unknown Address [address] [place] [address], [address] [place] [address] Phone [phone] Care Team Providers Care Firebrick Layer Name Role Phone Wei PILOT SUPERVISORAngie Carbajal AUTM [phone] Problems Active Problems Provider Date Cellulitis of right lower limb Riley Spaulding DPM Onset: 0 2016 Edema Riley Spaulding DPM Onset: 2016 Convalescence after surgery Riley Spaulding DPM Onset: 07/19 Social History Type Date Description Comments Sex Unknown ETOH Use Denies alcohol use Tobacco Use Start: Unknown Patient has never smoked Allergies, Adverse Reactions, Alerts Description No Known Drug Allergies Medications Active Medications SIG Qnty Indications Ordering Provide r Date Augmentin 875-125mg Tablets 1 by mouth twice a day 14tabs Riley Spaulding DPM 07/27/2016 Amoxicillin/Clavulanate Potassium 875-125mg Tablets Unknown [...] kg/m2 Results Description No Information Available Procedures Description No Information Available Medical Devices Description No Information Available Encounters Description No Information Available Assessments Description No Information Available Plan of Treatment Future Appointment(s):* 08/08/2020 2:30 pm - Riley Spaulding DPM at [facility] Functional Status Description No Information Available Mental Status Description No Information Available Referrals Description No Information Available
--- OUTSIDE RECORDS SUMMARY | 2020-06-30 00:38 | CCD | Continuity of Care Document ---
Author Author Chely CRUZ MD Organization Unknown Address [address] [place] [address] Phone [phone] Care Team Providers Care Straddle Bug Operator Name Role Phone Angie Carvajal NP AUTM [phone] Kateryna Alvares MD AUTM [phone] Problems Active Problems Provider Date Essential hypertension Onset: 01/13/2016 Pure hypercholesterolemia Riley Cruz MD Onset: 07/18 Social History Type Date Description Comments Sex Unknown ETOH Use Denies alcohol use Tobacco Use Start: Unknown Patient has never smoked Smoking Status Reviewed: 04/20/19 Patient has never smoked Allergies, Adverse Reactions, Alerts Description No Known Drug Allergies Medications Active Medications SIG Qnty Indications Ordering Provide r Date Ibuprofen 800mg Tablets one by mouth three times a day as needed 90tabs Z47.89 Riley Cruz MD 02/2020 Morphine Sulfate ER 15mg Tablets E R 1 by mouth every day for post-op pain (Please DO Not Fill Until 06/18/2019) 4tabs Riley Cruz MD 06/15/2019 Oxycodone HCL 15mg Tablets 1 tab by mouth every 4 hours as needed reference #: [id number] (Please DO Not Fill Until 06/18/2019) 30tabs Riley Cruz MD 0 Ibuprofen 600mg Tablets 1 by mouth three times a day with meals as needed for pain (Please DO Not Fill Until 06/18/2019 90tabs Riley Cruz MD 06/15/2019 Valium 5mg Tablets take one half hour prior to mri..may repeat in 30 minutes if no effect..do not drive to or from mri 2tabs Riley Cruz MD 9 Metformin HCL 1000mg Tablets take one tablet by mouth twice a day Unknown Glipizide ER 10mg Tablets ER 24HR 2 by mouth daily Unknown Gabapentin 100mg Capsules 1 by mouth twice a day Unknown Aspir-[address] ever y day Unknown Potassium Chloride 10Meq/100ML Solution Unknown Ranitidine HCL 300mg Capsules 1 by mouth every night at bedtime Unknown 0 Amlodipine Besylate 10mg Tablets 1 by mouth every day Unknown Simvastatin 80mg Tablets 1 by mouth every day Unknown Vitamin D3 Complete Tablets 5,000 iu by mouth daily Unknown Lisinopril-Hydrochlorothiazide 20-12.5mg Tablets 1qd - take one tablet by mouth every day Unknown Immunizations Description No Information Available Vital Signs Date Vital Result Comment 05/23/2020 10:31am Body Temperature 96.8 F 06/29/2019 1:25pm Body Temperature 98.2 F Results Description No Information Available Procedures Date Code Description Status 05/23/2020 94512 X-Ray Shoulder Complete Complete d 12/31/2019 91898 Therapeutic Procedure, Each 15 M inutes Completed 12/22/2019 31549 Therapeutic Procedure, Each 15 M inutes Completed 12/17/2019 44223 Therapeutic Procedure, Each 15 M inutes Completed 12/15/2019 32910 Therapeutic Procedure, Each 15 M inutes Completed 12/10/2019 87563 Therapeutic Procedure, Each 15 M inutes Completed 12/08/2019 37880 Therapeutic Procedure, Each 15 M inutes Completed 12/03/2019 91137 Therapeutic Procedure, Each 15 M inutes Completed 12/01/2019 41249 Therapeutic Procedure, Each 15 M inutes Completed 11/27/2019 47139 Therapeutic Procedure, Each 15 M inutes Completed 11/25/2019 62327 Therapeutic Procedure, Each 15 M inutes Completed Medical Devices Description No Information Available Encounters Type Date Location Provider Dx Diagnosis Office Visit 02/18/2020 9:00a Antonella Cruz MD Z47. 89 Encounter for other orthopedic aftercare Office Visit 12/23/2019 3:30p Antonella Cruz MD Z47. 89 Encounter for other orthopedic aftercare Assessments Date Code Description Provider 05/23/2020 Z47.89 Encounter for other orthopedic a ftercare Riley Cruz MD 02/18/2020 Z47.89 Encounter for other orthopedic a ftercare Riley Cruz MD 12/31/2019 Z47.89 Encounter for other orthopedic a ftercare Pura Garciaelidia, [facility] 12/23/2019 Z47.89 Encounter for other orthopedic a ftercare Riley Cruz MD 12/22/2019 Z47.89 Encounter for other orthopedic a ftercare Simona Scee [facility] 12/17/2019 Z47.89 Encounter for other orthopedic a ftercare Pura Orantes, [facility] 12/15/2019 Z47.89 Encounter for other orthopedic a ftercare Simona Scee [facility] 12/10/2019 Z47.89 Encounter for other orthopedic a ftercare Simona Scee [facility] 12/08/2019 Z47.89 Encounter for other orthopedic a ftercare Simona Scee [facility] 12/03/2019 Z47.89 Encounter for other orthopedic a ftercare Simona Scee P[facility] 12/01/2019 Z47.89 Encounter for other orthopedic a ftercare [facility] 11/27/2019 Z47.89 Encounter for other orthopedic a ftercare Pura Orantes, [facility] 11/25/2019 Z47.89 Encounter for other orthopedic a ftercare Simona Scee P.T[facility] Plan of Treatment 05/23/2020 - Riley Cruz MD* Z47.89 Encounter for other orthopedic aftercare* New Xrays:* MRI Left Shoulder, Ordered: 05/23/20 * Follow up:* with ANM for lt shoulder mri results(telephone visit) Functional Status Description No Information Available Mental Status Description No Information Available Referrals Refer to Reason for Referral Status Appt Date No authorization required fo r physical therapy evaluation [id number]. Patient coming here, passed to PT Dept. AC Created 0
--- OUTSIDE RECORDS SUMMARY | 2020-06-30 00:39 | CCD | Continuity of Care Document ---
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 Minal Alexander DPM-pc Onset: 12/01/2019 Corns and callosities Minal Alexander DPM-pc Onset: 12/01/19 20 Onychomycosis RAJNI Larsen, PNP Onset: 0 Type II diabetes mellitus uncontrolled RAJNI Larsen, P BINITROTOLUENE OPERATOR Onset: 01/07/2020 Essential hypertension RAJNI Larsen, PNP Onset: 2019 Shoulder joint pain RAJNI Larsen, PNP Onset: 0 Disorder of bursa of shoulder region RAJNI Larsen, PNP Onset: 01/07/2020 Taking medication RAJNI Larsen, PNP Onset: 0 Social History Type Date Description Comments Sex Unknown Tobacco Use Start: Unknown Never Smoked Cigarettes Tobacco Use Start: Unknown Never Smoked Cigars Tobacco Use Start: Unknown Never Smoked A Pipe Smoking Status Reviewed: 12/01/19 Never Smoked A Pipe Tobacco Use Start: Unknown Never Used Smokeless Tobacco ETOH Use Denies alcohol use Tobacco Use Start: Unknown Patient has never smoked Recreational Drug Use Denies Drug Use Allergies, Adverse Reactions, Alerts Description No Known Drug Allergies Medications Active Medications SIG Qnty Indications Ordering Provide r Date Pioglitazone HCL 30mg Tablets 1 tab by mouth every day for diabetes 90tabs RAJNI Larsen, PNP 01/14/2020 Potassium Chloride ER 20Meq Tablet s ER 1 by mouth twice a day 180tabs RAJNI Larsen, PNP Fenofibrate 145mg Tablets 1 tablet by mouth every day for triglycerides 90tabs E11.49 FAM Larsen, PNP 01/07/2020 Clotrimazole Anti-Fungal 1% Cream 1 application topically to rash under breasts twice a day 56gm BOSTON Larsen, PNP 10/07/2019 Furosemide 40mg Tablets take one tablet by mouth every day 90tabs RAJNI Larsen, PNP 09/16/19 20 [employer] - [employer] Cases Live Ultra 2 w/Device Kit for 3 times a day blood sugar testing dx: e11.65 1units RAJNI Larsen, PNP 06/29/2019 Blood Glucose Test Strips please provide glucose test strips, covered by pt insurance for three times a day blood sugar testing dx: e11.65 300units E11.65 RAJNI Larsen, PNP 06/[address] ease provide lancets that will be covered by insurance for three times a day blood sugar testing dx: e11.65 300units RAJNI Larsen, PNP 06/24/19 20 Famotidine 20mg Tablets 1 by mouth twice a day 180tabs RAJNI Larsen, PNP 06/09/19 20 Simvastatin 80mg Tablets 1 tab by mouth every day 90tabs RAJNI Larsen, PNP 00 Ibuprofen 800mg Tablets 1 tab by mouth once a day as needed for pain 30tabs RAJNI Larsen , PNP Loratadine 10mg Tablets 1 by mouth every day 90tabs RAJNI Larsen, PNP 00 Montelukast Sodium 10mg Tablets 1 by mouth every day 90tabs RAJNI Larsen, PNP 00 Gabapentin 300mg Capsules 1 by mouth three times a day 270caps RAJNI Larsen, PNP 00 Amlodipine Besylate 10mg Tablets 1 by mouth every day 90tabs RAJNI Larsen, PNP 00 Lisinopril-Hydrochlorothiazide 20-12.5mg Tablets 1 by mouth every day 90tabs RAJNI Larsen, PNP Aspirin Adult Low Strength 81mg Tablets DR 1 by mouth every day Unknown 000 Glipizide 10mg Tablets 1 by mouth twice a day 180tabs RAJNI Larsen, PNP 00 Metformin HCL 1000mg Tablets 1 tab by mouth twice a day 180tabs RAJNI Larsen, PNP History Medications Tradjenta 5mg Tablets take one tablet by mouth every day in the morning 90tabs E11.49 ANALI Larsen C, PNP 01/07/2020 - 01/14/2020 Immunizations Description No Information Available Vital Signs Date Vital Result Comment 04/11/2020 1:54pm BP Systolic 114 mmHg BP Diastolic 68 mmHg Heart Rate 96 /min Body Temperature 97.0 F Respiratory Rate 18 /min O2 % BldC Oximetry 96 % Weight 177.38 lb Weight 80.457 kg Height 60 inches 5'0" BMI (Body Mass Index) 34.6 kg/m2 BSA (Body Surface Area) 1.77 m2 01/07/2020 2:02pm BP Systolic 120 mmHg BP Diastolic 72 mmHg Heart Rate 92 /min Body Temperature 97.2 F Respiratory Rate 18 /min O2 % BldC Oximetry 98 % Weight 181.12 lb Weight 82.158 kg Height 60 inches 5'0" BMI (Body Mass Index) 35.4 kg/m2 BSA (Body Surface Area) 1.79 m2 Results Test Acquired Date Facility Test Result H/L Range Note CBC With Differential 01/06/2020 [facility] White Blood Count 10.4 10 High 4.0-10.0 Red Blood Count 4.61 10 Normal 4.00-5.40 Hemoglobin 13.4 g/dL Normal 12.0-15.5 Hematocrit 39.2 % Normal 36.0-47.0 Mean Corpuscular Volume 85.0 fl Normal 80.0-96.0 Mean Corpuscular Hemoglobin 29.1 pg Normal 27.0-33.0 Mean Corpuscular HGB Conc 34.2 g/dL Normal 32.0-36.5 Red Cell Distribution Width 12.8 % Normal 11.5-14.5 Platelet Count, Automated 290 10 Normal 150-450 Neutrophils % 67.1 % High 36.0-66.0 Lymph % 20.2 % Low 24.0-44.0 [place] % 6.0 % High 0.0-5.0 Eos % 5.9 % High 0.0-3.0 Baso % 0.5 % Normal 0.0-1.0 Immature Granulocyte % 0.3 % Normal 0-3.0 Nucleated Red Blood Cell % 0.0 % Normal 0-0 Neutrophils # 7.0 10 Normal 1.5-8.5 Lymph # 2.1 10 Normal 1.5-5.0 [place] # 0.6 10 Normal 0.0-0.8 Eos # 0.6 10 High 0.0-0.5 Baso # 0.1 10 Normal 0.0-0.2 Hemoglobin A1c 01/06/2020 [facility] Hemoglobin A1c 10.7 % Normal 1 Estimated Average Glucose 260 mg/dL High 60-110 Comprehensive Metabolic Profil 01/06/2020 [facility] Glucose, Fasting 274 mg/dL High 70-100 Blood Urea Nitrogen 20 mg/dL High 7-18 Creatinine For GFR 1.00 mg/dL Normal 0.55-1.30 Glomerular Filtration Rate 58.7 Normal >45 2 Sodium Level 140 mEq/L Normal 136-145 Potassium Serum 3.3 mEq/L Low 3.5-5.1 Chloride Level 102 mEq/L Normal 98-107 Carbon Dioxide Level 29 mEq/L Normal 21-32 Anion Gap 9 mEq/L Normal 8-16 Calcium Level 9.1 mg/dL Normal 8.8-10.2 Ast/Sgot 17 U/L Normal 7-37 Alt/SGPT 27 U/L Normal 12-78 Alkaline Phosphatase 54 U/L Normal 45-117 Bilirubin,Total 0.4 mg/dL Normal 0.2-1.0 Total Protein 7.2 GM/DL Normal 6.4-8.2 Albumin 3.6 GM/DL Normal 3.2-5.2 Albumin/Globulin Ratio 1.0 Low 1.2-2.2 Lipid Panel 01/06/2020 [facility] Triglycerides Level 272 mg/dL High <150 Cholesterol Level 134 mg/dL Normal <200 HDL Cholesterol 31 mg/dL Low >40 LDL Cholesterol 49 mg/dL Normal <100 Non-HDL-C 103 mg/dL Normal Cholesterol Risk Ratio 4.322 Normal <5 Laboratory test finding 01/06/2020 [facility] Magnesium Level 1.7 mg/dL Low 1.8-2.4 Thyroid Stimulating Hormone 2.370 uIU/ML Normal 0.358-3.740 1 REFERENCE RANGES: <=5.6% NORMAL 5.7-6.4% SUGGESTS IMPAIRED GLUCOSE META BOLISM/PREDIABETIC >= 6.5% ABNORMAL 2 Units are mL/min/1.73 m2 Chronic Kidney Disease Staging per NKF: Stage I & II GFR >=60 Normal to Mildly Decreased Stage III GFR 30-59 Moderately Decreased Stage IV GFR 15-29 Severely Decreased Stage V GFR <15 Very Little GFR Left ESRD GFR <15 on [employer] Procedures Date Code Description Status 12/01/2019 80624 Pare Hyperkeratotic Lesion, 2-4 Completed Medical Devices Description No Information Available Encounters Description No Information Available Assessments Date Code Description Provider 04/11/2020 E11.49 Type 2 diabetes elbert itus with other diabetic neurological complication RAJNI Larsen, PNP 04/11/2020 I10 Essential (primary) hypertension RAJNI Larsen, PNP 04/11/2020 E78.00 Pure hypercholesterolemia, unspe cified RAJNI Larsen, PNP 04/11/2020 K21.9 Gastro-esophageal reflux disease without esophagitis RAJNI Larsen, PNP 04/11/2020 E87.6 Hypokalemia BOSTON Larsen, PNP 04/11/2020 L84 Corns and callosities RAJNI Larsen, PNP 04/11/2020 Z79.899 Other parts counterman (current) drug t herapy RAJIN Larsen, PNP 04/11/2020 Z68.34 Body mass index [BMI] 34.0-34.9, adult RAJNI Larsen, PNP 01/07/2020 E11.49 Type 2 diabetes elbert itus with other diabetic neurological complication RAJNI Larsen, PNP 01/07/2020 I10 Essential (primary) hypertension RAJNI Larsen, PNP 01/07/2020 M79.604 Pain in right leg FAM Larsen, PNP 12/01/2019 E11.49 Type 2 diabetes elbert itus with other diabetic neurological complication Minal Alexander DPM-pc 12/01/2019 L60.0 Ingrowing nail Minal Alexander, DIM-pc 12/01/2019 L60.3 Nail dystrophy Minal Alexander, KAL-pc 12/01/2019 L84 Corns and callosities Minal rowe, DI-pc 12/01/2019 M79.672 Pain in left foot Minal Alexander KAL-kim Plan of Treatment Future Appointment(s):* 07/13/2020 1:00 pm - RAJNI Larsen, PNP at [facility] 04/11/2020 - RAJNI Larsen, PNP* E11.49 Type 2 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 She will benefit from maintaining a diabetic diet and a regular exercise regimen. We will continue to monitor. * I10 Essential (primary) hypertension* Comments:* JNC8 Guidelines - Pt white Female > 60 To continue with the prescribed CCB, ACEI/HCTZ, Furosemide.BP is at goal 114/68. Continue current treatment and monitor. She will benefit from maintaining a low sodium diet. * E78.00 Pure hypercholesterolemia, unspecified* Comments:* Lipid panel showed:TRG high at 246.CHOL high at 238.HDL at 34.LDL high at 155.She will continue with her current regimen.She was encouraged to maintain a low ch olesterol diet and a regular exercise regimen.We will continue to monitor.Discussed dietary changes to improve, avoiding meat and dairy products, avoiding processed foodsDecrease saturated Fats (meat, dairy products and processed foods)Increase Unsaturated fats (fish, plants, nuts, seeds, beans and vegetable oils)Increase aerobic exerciseIncrease water intake Read Labels * K21.9 Gastro-esophageal reflux disease without esophagitis* Comments:* She was advised to continue with her current medication. Avoid spicy food and c ontrol diet as advised. * E87.6 Hypokalemia* Comments:* Potassium at 3.9.Currently stable.To continue current medication.We will continue to monitor. * L84 Corns and callosities* Comments:* She was given a referral to [facility] for evaluation and management of callus on plantar right foot beneath her 1st metatarsal and starting callus on left lateral 1st metatarsal with circulation notably diminished on left foot.We will continue to monitor. * Z79.899 Other half-way (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* Comments:* Patient to continue to follow the current plan of care and to look for any new or worsening symptoms. We will continue to monitor through periodic blood work. * Follow up:* FU in 3 months, fasting labs first. * Z68.34 Body mass index [BMI] 34.0-34.9, adult* Comments:* Her BMI is at 34.6. She was strongly encouraged to lose weight with low-calorie diet and exercises. We will continue to monitor her weight and BMI periodically. Functional Status Description No Information Available Mental Status Description No Information Available Referrals Refer to Reason for Referral Status Appt Date Riley Spaulding Please see this 69 yo female whom you have seen in the past for diabetic foot care. She has now developed a callus plantar right foot beneath 1st metatarsal. Starting callus on left lateral 1st metatarsal and circulation notably diminished left foot. I'm also referring to vascular for eval. Created [address] [place] [id number] [phone] Created
--- OUTSIDE RECORDS SUMMARY | 2020-06-30 00:39 | CCD | Continuity of Care Document ---
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: 01/07/2020 Essential hypertension RAJNI Larsen, PNP [...] by mouth twice a day 180tabs RAJNI Lasren, PNP Fenofibrate 145mg Tablets 1 tablet by mouth every day for triglycerides 90tabs E11.49 FAM Larsen, PNP 01/07/2020 Clotrimazole Anti-Fungal 1% Cream 1 application topically to rash under breasts twice a day 56gm BOSTON Larsen, PNP 10/07/2019 Furosemide 40mg Tablets take one tablet by mouth every day 90tabs RAJNI Larsen, PNP 09/16/19 20 OnetoAttenex Ultra 2 w/Device Kit for 3 times [...] Tablets 1 by mouth every day 90tabs RANJI Larsen, PNP 00 Lisinopril-Hydrochlorothiazide 20-12.5mg Tablets 1 [...] H/L Range Note CBC With Differential 01/06/2020 [facility] White Blood Count 10.4 10 High 4.0-10.0 [...] 36.0-66.0 Lymph % 20.2 % Low 24.0-44.0 [place] % 6.0 % High 0.0-5.0 Eos % 5.9 % High 0.0-3.0 Baso % 0.5 % Normal 0.0-1.0 Immature Granulocyte % 0.3 % Normal 0-3.0 Nucleated Red Blood Cell % 0.0 % Normal 0-0 Neutrophils # 7.0 10 Normal 1.5-8.5 Lymph # 2.1 10 Normal 1.5-5.0 [place] # 0.6 10 Normal 0.0-0.8 Eos # 0.6 10 High 0.0-0.5 Baso # 0.1 10 Normal 0.0-0.2 Hemoglobin A1c 01/06/2020 [facility] Hemoglobin A1c 10.7 % Normal 1 Estimated Average Glucose 260 mg/dL High 60-110 Comprehensive Metabolic Profil 01/06/2020 [facility] Glucose, Fasting 274 mg/dL High 70-100 Blood [...] Ratio 1.0 Low 1.2-2.2 Lipid Panel 01/06/2020 [facility] Triglycerides Level 272 mg/dL High <150 Cholesterol Level 134 mg/dL Normal <200 HDL Cholesterol 31 mg/dL Low >40 LDL Cholesterol 49 mg/dL Normal <100 Non-HDL-C 103 mg/dL Normal Cholesterol Risk Ratio 4.322 Normal <5 Laboratory test finding 01/06/2020 [facility] Magnesium Level 1.7 mg/dL Low 1.8-2.4 Thyroid [...] Little GFR Left ESRD GFR <15 on [facility] Procedures Date Code Description Status 12/01/2019 57681 Pare Hyperkeratotic Lesion, 2-4 Completed Medical Devices Description No Information Available Encounters Type Date Location Provider Dx Diagnosis Office Visit 04/11/2020 1:40p [facility] Da RAJNI Sebastian, PNP 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 I10 Essential (primary) hyperten katelyn E78.00 Pure hypercholesterolemia, u nspecified K21.9 Gastro-esophageal reflux dis ease without esophagitis E87.6 Hypokalemia I70.213 Athscl [place] arteries of ex trm w intrmt mirella, bi legs L84 Corns and callosities Z79.899 Other fci (current) dr maya therapy Z68.34 Body mass index [BMI] 34.0-3 4.9, adult Assessments Date Code Description Provider 04/11/2020 E11.49 Type 2 diabetes elbert itus with other diabetic neurological complication RAJNI Larsen, PNP 04/11/2020 I10 Essential (primary) hypertension RAJNI Larsen, PNP 04/11/2020 E78.00 Pure hypercholesterolemia, unspe cified RAJNI Larsen, PNP 04/11/2020 K21.9 Gastro-esophageal reflux disease without esophagitis RAJNI Larsen, PNP 04/11/2020 E87.6 Hypokalemia BOSTON Larsen, PNP 04/11/2020 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 of n ative arteries of extremities with intermittent claudication, bilateral legs RAJNI Larsen, PNP 04/11/2020 L84 Corns and callosities RAJNI Larsen, PNP 04/11/2020 Z79.899 Other personal fitness trainer (current) drug t herapy RAJNI Larsen, PNP 04/11/2020 Z68.34 Body mass index [BMI] 34.0-34.9, adult RAJNI Larsen, PNP 01/07/2020 E11.49 Type 2 diabetes elbert itus with other diabetic neurological complication RAJNI Larsen, PNP 01/07/2020 I10 Essential (primary) hypertension RAJNI Larsen, PNP 01/07/2020 M79.604 Pain in right leg FAM Larsen, PNP 12/01/2019 E11.49 Type 2 diabetes elbert itus with other diabetic neurological complication DI ArangoM-pc 12/01/2019 L60.0 Ingrowing nail Minal Alexander DPM-pc 12/01/2019 L60.3 Nail dystrophy Minal Alexander DPM-pc 12/01/2019 L84 Corns and callosities Minal rowe DPM-pc 12/01/2019 M79.672 Pain in left foot Minal Alexander DPM-pc Plan of Treatment Future Appointment(s):* 07/13/2020 1:00 pm - RAJNI Larsen, PNP at [facility] 04/11/2020 - RAJNI Larsen, PNP* 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 * 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 of [place] arteries of extremities with intermittent claudication, bilateral legs* Comments:* She was given a referral to Vascular for evaluation and management of bilateral lower extremities claudication.We will continue to monitor. * L84 Corns and callosities* Comments:* She was given a referral to Automatic Riveting Machine Operator for evaluation and management of callus on plantar right foot beneath her 1st metatarsal and starting callus on left lateral 1st metatarsal with circulation notably diminished on left foot.We will continue to monitor. * Z79.899 Other fci (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* Comments:* Patient to continue [...] also referring to vascular for eval. Created [address] [place] [id number] [phone] [facility] [place] [address] [place], plea se see this 69 yo female who has uncontrolled Type 2 DM. She has bilateral leg pain with ambulation. Pedal pulse is readily palpable on right but not on Left. Left foot and toes are notably cooler than right. Please evaluate for bilateral lower extremity claudication. Created [address] [id number] [phone]
--- OUTSIDE RECORDS SUMMARY | 2020-06-30 00:40 | CCD ---
Author Author [facility] Organization [facility] Address Unknown Phone Unavailable Care Team Providers Care Anesthesiologist/Physician Name Role Phone Ynes LAZO DPM Unavailable Unavailable Ynes LAZO DPM Unavailable Unavailable Ynes LAZO DPM Unavailable Unavailable Ynes LAZO DPM Unavailable Unavailable Ynes LAZO DPM Unavailable Unavailable MAJAK, R RENETTA DPM Unavailable Unavailable MAJAK, R RENETTA DPM Unavailable Unavailable MAJTERESE, R RENETTA DPM Unavailable Unavailable MAJAK, R RENETTA DPM Unavailable Unavailable MAJAK, R RENETTA DPM Unavailable Unavailable MAJAK, R RENETTA DPM Unavailable Unavailable MAJAK, R RENETTA DPM Unavailable Unavailable MAJAK, R RENETTA DPM Unavailable Unavailable MAJAK, R RENETTA DPM Unavailable Unavailable MAJAK, R RENETTA DPM Unavailable Unavailable MAJAK, R RENETTA DPM Unavailable Unavailable MAJAK, R RENETTA DPM Unavailable Unavailable MAJAK, R RENETTA DPM Unavailable Unavailable MAJAK, R RENETTA DPM Unavailable Unavailable MAJAK, R RENETTA DPM Unavailable Unavailable MAJAK, R RENETTA DPM Unavailable Unavailable MAJAK, R RENETTA DPM Unavailable Unavailable MAJAK, R RENETTA DPM Unavailable Unavailable MAJAK, R RENETTA DPM Unavailable Unavailable MAJAK, R RENETTA DPM Unavailable Unavailable MAJAK, R RENETTA DPM Unavailable Unavailable MAJAK, R RENETTA DPM Unavailable Unavailable MAJAK, R RENETTA DPM Unavailable Unavailable MAJAK, R RENETTA DPM Unavailable Unavailable MAJAK, R RENETTA DPM Unavailable Unavailable JOHN, J KAREL DPM PC Unavailable Unavailable JOHN, J KAREL [facility] Unavailable Unavailable JOHN, J KAREL [facility] Unavailable Unavailable JOHN, J KAREL [facility] Unavailable Unavailable JOHN, J KAREL [facility] Unavailable Unavailable JOHN, J KAREL [facility] Unavailable Unavailable JOHN, J KAREL [facility] Unavailable Unavailable JOHN, J KAREL [facility] Unavailable Unavailable JOHN, J KAREL [facility] Unavailable Unavailable JOHN, J KAREL [facility] Unavailable Unavailable JOHN, J KAREL [facility] Unavailable Unavailable JOHN, J KAREL [facility] Unavailable Unavailable JOHN, J KAREL [facility] Unavailable Unavailable JOHN, J KAREL [facility] Unavailable Unavailable JOHN, J KAREL [facility] Unavailable Unavailable JOHN, J KAREL [facility] Unavailable Unavailable JOHN, J KAREL [facility] Unavailable Unavailable JOHN, J KAREL [facility] Unavailable Unavailable JOHN, J KAREL [facility] Unavailable Unavailable JOHN, J KAREL [facility] Unavailable Unavailable JOHN, J KAREL [facility] Unavailable Unavailable JOHN, J KAREL [facility] Unavailable Unavailable JOHN, J KAREL [facility] Unavailable Unavailable JOHN, J KAREL [facility] Unavailable Unavailable JOHN, J KAR[facility] Unavailable Unavailable JOHN, J KAR[facility] Unavailable Unavailable Rangel Salazar MD Unavailable Unavailable Rangel Salazar MD Unavailable Unavailable Rangel Salazar MD Unavailable Unavailable Rangel Salazar MD Unavailable Unavailable Rangel Salazar MD Unavailable Unavailable Rangel Salazar MD Unavailable Unavailable Rangel Salazar MD Unavailable Unavailable Rangel Salazar MD Unavailable Unavailable Rangel Salazar MD Unavailable Unavailable Rangel Salazar MD Unavailable Unavailable Rangel Salazar MD Unavailable Unavailable Rangel Salazar MD Unavailable Unavailable Rangel Salazar MD Unavailable Unavailable Rangel Salazar MD Unavailable Unavailable Rangel Salazar MD Unavailable Unavailable Rangel Salazar MD Unavailable Unavailable Rangel Salazar MD Unavailable Unavailable Rangel Salazar MD Unavailable Unavailable Rangel Salazar MD Unavailable Unavailable Rangel Salazar MD Unavailable Unavailable Rangel Salazar MD Unavailable Unavailable Rangel Salazar MD Unavailable Unavailable Rangel Salazar MD Unavailable Unavailable Rangel Salazar MD Unavailable Unavailable Rangel Salazar MD Unavailable Unavailable Rangel Salazar MD Unavailable Unavailable Rangel Salazar MD Unavailable Unavailable Rangel Salazar MD Unavailable Unavailable Rangel Salazar MD Unavailable Unavailable Rangel Salazar MD Unavailable Unavailable Rangel Salazar MD Unavailable Unavailable Rangel Salazar MD Unavailable Unavailable Rangel Salazar MD Unavailable Unavailable Rangel Salazar MD Unavailable Unavailable Rangel Salazar MD Unavailable Unavailable Rangel Salazar MD Unavailable Unavailable Rangel Salazar MD Unavailable Unavailable Rangel Salazar MD Unavailable Unavailable Rangel Salazar MD Unavailable Unavailable Rangel Salazar MD Unavailable Unavailable Rangel Salazar MD Unavailable Unavailable Rangel Salazar MD Unavailable Unavailable Rnagel Salazar MD Unavailable Unavailable Rangel Salazar MD Unavailable Unavailable Rangel Salazar MD Unavailable Unavailable Rangel Salazar MD Unavailable Unavailable Rangel Salazar MD Unavailable Unavailable Rangel Salazar MD Unavailable Unavailable Rangel Salazar MD Unavailable Unavailable Rangel Salazar MD Unavailable Unavailable Rangel Salazar MD Unavailable Unavailable Rangel Salazar MD Unavailable Unavailable Rangel Salazar MD Unavailable Unavailable Rangel Salazar MD Unavailable Unavailable Rangel Salazar MD Unavailable Unavailable Rangel Salazar MD Unavailable Unavailable Rangel Salazar MD Unavailable Unavailable Rangel Salazar MD Unavailable Unavailable Rangel Salazar MD Unavailable Unavailable Rangel Salazar MD Unavailable Unavailable Rangel Salazar MD Unavailable Unavailable Rangel Salazar MD Unavailable Unavailable Rangel Salazar MD Unavailable Unavailable Rangel Salazar MD Unavailable Unavailable Rangel Salazar MD Unavailable Unavailable Rangel Salazar MD Unavailable Unavailable Rangel Salazar MD Unavailable Unavailable Rangel Salazar MD Unavailable Unavailable Rangel Salazar MD Unavailable Unavailable Rangel Salazar MD Unavailable Unavailable Rangel Salazar MD Unavailable Unavailable Rangel Salazar MD Unavailable Unavailable Rangel Salazar MD Unavailable Unavailable Rangel Salazar MD Unavailable Unavailable Rangel Salazar MD Unavailable Unavailable Rangel Salazar MD Unavailable Unavailable Rangel Salazar MD Unavailable Unavailable Rangel Salazar MD Unavailable Unavailable Rangel Salazar MD Unavailable Unavailable Rangel Salazar MD Unavailable Unavailable Rangel Salazar MD Unavailable Unavailable Rangel Salazar MD Unavailable Unavailable Rangel Salazar MD Unavailable Unavailable Rangel Salazar MD Unavailable Unavailable Rangel Salazar MD Unavailable Unavailable Rangel Salazar MD Unavailable Unavailable Rangel Saalzar MD Unavailable Unavailable Rangel Salazar MD Unavailable Unavailable Rangel Salazar MD Unavailable Unavailable Wei, Johana Angie ANP-BC Unavailable Unavailable Wei, Johana Angie ANP-BC Unavailable Unavailable Wei, Johana Angie ANP-BC Unavailable Unavailable Wei, Johana Angie ANP-BC Unavailable Unavailable Wei, Johana Angie ANP-BC Unavailable Unavailable Wei, Johana Angie ANP-BC Unavailable Unavailable Wei, Johana Angie ANP-BC Unavailable Unavailable Wei, Johana Angie ANP-BC Unavailable Unavailable Wei, Johana Angie ANP-BC Unavailable Unavailable Wei, Johana Angie ANP-BC Unavailable Unavailable Wei, Johana Angie ANP-BC Unavailable Unavailable Wei, Johana Angie ANP-BC Unavailable Unavailable Wei, Johana Angie ANP-BC Unavailable Unavailable Wei, Johana Angie ANP-BC Unavailable Unavailable Wei, Johana Angie ANP-BC Unavailable Unavailable Wei, Johana Angie ANP-BC Unavailable Unavailable Wei, Johana Angie ANP-BC Unavailable Unavailable Wei, Johana Angie ANP-BC Unavailable Unavailable Wei, Johana Angie ANP-BC Unavailable Unavailable Wei, Johana Angie ANP-BC Unavailable Unavailable Wei, Johana Angie ANP-BC Unavailable Unavailable Wei, Johana Angie ANP-BC Unavailable Unavailable Wei, Johana Angie ANP-BC Unavailable Unavailable Wei, Johana Angie ANP-BC Unavailable Unavailable Wei, Johana Angie ANP-BC Unavailable Unavailable Wei, Johana Angie ANP-BC Unavailable Unavailable Wei, Johana Angie ANP-BC Unavailable Unavailable Wei, Johana Angie ANP-BC Unavailable Unavailable Wei, Johana Angie ANP-BC Unavailable Unavailable Wei, Johana Angie ANP-BC Unavailable Unavailable Wei, Johana Angie ANP-BC Unavailable Unavailable Wei, Johana Angie ANP-BC Unavailable Unavailable Wei, Johana Angie ANP-BC Unavailable Unavailable Wei, Johana Angie ANP-BC Unavailable Unavailable Wei, Johana Angie ANP-BC Unavailable Unavailable Wei, Johana Angie ANP-BC Unavailable Unavailable Wei, Johana Angie ANP-BC Unavailable Unavailable Wei, Johana Angie ANP-BC Unavailable Unavailable Wei, Johana Angie ANP-BC Unavailable Unavailable Wei, Johana Angie ANP-BC Unavailable Unavailable Wei, Johana Angie ANP-BC Unavailable Unavailable Wei, Johana Angie ANP-BC Unavailable Unavailable Wei, Johana Angie ANP-BC Unavailable Unavailable Wei, Johana Angie ANP-BC Unavailable Unavailable Wei, Johana Angie ANP-BC Unavailable Unavailable Wei, Johana Angie ANP-BC Unavailable Unavailable Wei, Johana Angie ANP-BC Unavailable Unavailable Wei, Johana Angie ANP-BC Unavailable Unavailable Wei, Johana Angie ANP-BC Unavailable Unavailable Wei, Johana Angie ANP-BC Unavailable Unavailable Wei, Johana Angie ANP-BC Unavailable Unavailable Wei, Johana Angie ANP-BC Unavailable Unavailable Wei, Johana Angie ANP-BC Unavailable Unavailable Wei, Johana Angie ANP-BC Unavailable Unavailable Wei, Johana Angie ANP-BC Unavailable Unavailable Wei, Johana Angie ANP-BC Unavailable Unavailable Wei, Johana Angie ANP-BC Unavailable Unavailable Wei, Johana Angie ANP-BC Unavailable Unavailable Wei, Johana Angie ANP-BC Unavailable Unavailable Wei, Johana Angie ANP-BC Unavailable Unavailable Wei, Johana Angie ANP-BC Unavailable Unavailable Wei, Johana Angie ANP-BC Unavailable Unavailable Wei, Johana Angie ANP-BC Unavailable Unavailable Wei, Johana Angie ANP-BC Unavailable Unavailable Wei, Johana Angie ANP-BC Unavailable Unavailable Wei, Johana Angie ANP-BC Unavailable Unavailable Wei, Johana Angie ANP-BC Unavailable Unavailable Wei, Johana Angie ANP-BC Unavailable Unavailable Wei, Johana Angie ANP-BC Unavailable Unavailable Wei, Johana Angie ANP-BC Unavailable Unavailable Wei, Johana Angie ANP-BC Unavailable Unavailable Wei, Johana Angie ANP-BC Unavailable Unavailable Wei, Johana Angie ANP-BC Unavailable Unavailable Wei, Johana Angie ANP-BC Unavailable Unavailable Wei, Johana Angie ANP-BC Unavailable Unavailable Wei, Johana Angie ANP-BC Unavailable Unavailable Wei, Johana Angie ANP-BC Unavailable Unavailable Wei, Johana Angie ANP-BC Unavailable Unavailable Wei, Johana Angie ANP-BC Unavailable Unavailable Wei, Johana Angie ANP-BC Unavailable Unavailable Wei, Johana Angie ANP-BC Unavailable Unavailable Wei, Johana Angie ANP-BC Unavailable Unavailable Wei, Johana Angie ANP-BC Unavailable Unavailable Wei, Johana Angie ANP-BC Unavailable Unavailable Wei, Johana Angie ANP-BC Unavailable Unavailable Wei, Johana Angie ANP-BC Unavailable Unavailable Wei, Johana Angie ANP-BC Unavailable Unavailable Wei, Johana Angie ANP-BC Unavailable Unavailable Wei, Johana Angie ANP-BC Unavailable Unavailable Wei, Johana Angie ANP-BC Unavailable Unavailable Wei, Johana Angie ANP-BC Unavailable Unavailable Wei, Johana Angie ANP-BC Unavailable Unavailable Wei, Johana Angie ANP-BC Unavailable Unavailable Wei, Johana Angie ANP-BC Unavailable Unavailable Wei, Johana Angie ANP-BC Unavailable Unavailable Wei, Johana Angie ANP-BC Unavailable Unavailable Wei, Johana Angie ANP-BC Unavailable Unavailable Wei, Johana Angie ANP-BC Unavailable Unavailable Wei, Johana Angie ANP-BC Unavailable Unavailable Wei, Johana Angie ANP-BC Unavailable Unavailable Wei, Johana Angie ANP-BC Unavailable Unavailable Wei, Johana Angie ANP-BC Unavailable Unavailable Wei, Johana Angie ANP-BC Unavailable Unavailable Wei, Johana Angie ANP-BC Unavailable Unavailable Wei, Johana Angie ANP-BC Unavailable Unavailable Wei, Johana Angie ANP-BC Unavailable Unavailable Wei, Johana Angie ANP-BC Unavailable Unavailable Wei, Johana Angie ANP-BC Unavailable Unavailable Wei, Johana Angie ANP-BC Unavailable Unavailable Wei, Johana Angie ANP-BC Unavailable Unavailable Wei, Johana Angie ANP-BC Unavailable Unavailable Wei, Johana Angie ANP-BC Unavailable Unavailable Wei, Johana Angie ANP-BC Unavailable Unavailable Wei, Johana Angie ANP-BC Unavailable Unavailable Wei, Johana Angie ANP-BC Unavailable Unavailable Wei, Johana Angie ANP-BC Unavailable Unavailable Wei, Johana Angie ANP-BC Unavailable Unavailable Wei, Johana Angie ANP-BC Unavailable Unavailable Wei, Johana Angie ANP-BC Unavailable Unavailable Wei, Johana Angie ANP-BC Unavailable Unavailable Wei, Johana Angie ANP-BC Unavailable Unavailable Wei, Johana Angie ANP-BC Unavailable Unavailable Wei, Johana Angie ANP-BC Unavailable Unavailable Wei, Johana Angie ANP-BC Unavailable Unavailable Wei, Johana Angie ANP-BC Unavailable Unavailable Wei, Johana Angie ANP-BC Unavailable Unavailable Wei, Johana Angie ANP-BC Unavailable Unavailable Wei, Johana Angie ANP-BC Unavailable Unavailable Jacques, C Lola PA Unavailable Unavailable Jacques, C Lola PA Unavailable Unavailable Jacques, C Lola PA Unavailable Unavailable Jacques, C Lola PA Unavailable Unavailable Jacques, C Lola PA Unavailable Unavailable Jacques, C Lola PA Unavailable Unavailable Jacques, C Lola PA Unavailable Unavailable Jacques, C Lola PA Unavailable Unavailable Jacques, C Lola PA Unavailable Unavailable Jacques, C Lola PA Unavailable Unavailable Jacques, C Lola PA Unavailable Unavailable Jacques, C Lola PA Unavailable Unavailable Jacques, C Lola PA Unavailable Unavailable Jacques, C Lola PA Unavailable Unavailable Jacques, C Lola PA Unavailable Unavailable Jacques, C Lola PA Unavailable Unavailable Jacques, C Lola PA Unavailable Unavailable Jacques, C Lola PA Unavailable Unavailable Jacques, C Lola PA Unavailable Unavailable Jacques, C Lola PA Unavailable Unavailable Jacques, C Lola PA Unavailable Unavailable Jacques, C Lola PA Unavailable Unavailable Jacques, C Lola PA Unavailable Unavailable Jacques, C Lola PA Unavailable Unavailable Jacques, C Lola PA Unavailable Unavailable Jacques, C Lola PA Unavailable Unavailable Jacques, C Lola PA Unavailable Unavailable Jacques, C Lola PA Unavailable Unavailable Jacques, C Lola PA Unavailable Unavailable Jacques, C Lola PA Unavailable Unavailable Jacques, C Lola PA Unavailable Unavailable Jacques, C Lola PA Unavailable Unavailable Jacques, C Lola PA Unavailable Unavailable Jacques, C Lola PA Unavailable Unavailable Jacques, C Lola PA Unavailable Unavailable Jacques, C Lola PA Unavailable Unavailable Jacques, C Lola PA Unavailable Unavailable Jacques, C Lola PA Unavailable Unavailable Jacques, C Lola PA Unavailable Unavailable Jacques, C Lola PA Unavailable Unavailable Jacques, C Lola PA Unavailable Unavailable Jacques, C Lola PA Unavailable Unavailable Jacques, C Lola PA Unavailable Unavailable Jacques, C Lola PA Unavailable Unavailable Jacques, C Lola PA Unavailable Unavailable Jacques, C Lola PA Unavailable Unavailable Jacques, C Lola PA Unavailable Unavailable RENETTA CRUZ MD Unavailable Unavailable RENETTA CRUZ MD Unavailable Unavailable RENETTA CRUZ MD Unavailable Unavailable RENETTA CRUZ MD Unavailable Unavailable RENETTA CRUZ MD Unavailable Unavailable RENETTA CRUZ MD Unavailable Unavailable RENETTA CRUZ MD Unavailable Unavailable RENETTA CRUZ MD Unavailable Unavailable RENETTA CRUZ MD Unavailable Unavailable RENETTA CRUZ MD Unavailable Unavailable RENETTA CRUZ MD Unavailable Unavailable RENETTA CRUZ MD Unavailable Unavailable RENETTA CRUZ MD Unavailable Unavailable RENETTA CRUZ MD Unavailable Unavailable RENETTA CRUZ MD Unavailable Unavailable RENETTA CRUZ MD Unavailable Unavailable RENETTA CRUZ MD Unavailable Unavailable RENETTA CRUZ MD Unavailable Unavailable RENETTA CRUZ MD Unavailable Unavailable RENETTA CRUZ MD Unavailable Unavailable RENETTA CRUZ MD Unavailable Unavailable RENETTA CRUZ MD Unavailable Unavailable RENETTA CRUZ MD Unavailable Unavailable RENETTA CRUZ MD Unavailable Unavailable RENETTA CRUZ MD Unavailable Unavailable RENETTA CRUZ MD Unavailable Unavailable RENETTA CRUZ MD Unavailable Unavailable RENETTA CRUZ MD Unavailable Unavailable RENETTA CRUZ MD Unavailable Unavailable RENETTA CRUZ MD Unavailable Unavailable RENETTA CRUZ MD Unavailable Unavailable RENETTA CRUZ MD Unavailable Unavailable RENETTA CRUZ MD Unavailable Unavailable RENETTA CRUZ MD Unavailable Unavailable RENETTA CRUZ MD Unavailable Unavailable RENETTA CRUZ MD Unavailable Unavailable RENETTA CRUZ MD Unavailable Unavailable RENETTA CRUZ MD Unavailable Unavailable RENETTA CRUZ MD Unavailable Unavailable RENETTA CRUZ MD Unavailable Unavailable RENETTA CRUZ MD Unavailable Unavailable RENETTA CRUZ MD Unavailable Unavailable RENETTA CRUZ MD Unavailable Unavailable RENETTA CRUZ MD Unavailable Unavailable RENETTA CRUZ MD Unavailable Unavailable MARKWITH, RENETTA MD Unavailable Unavailable MARKWITH, RENETTA MD Unavailable Unavailable MARKWITH, RENETTA MD Unavailable Unavailable MARKWITH, RENETTA MD Unavailable Unavailable MARKWITH, RENETTA MD Unavailable Unavailable MARKWITH, RENETTA MD Unavailable Unavailable MARKWITH, RENETTA MD Unavailable Unavailable MARKWITH, RENETTA MD Unavailable Unavailable MARKWITH, RENETTA MD Unavailable Unavailable MARKWITH, RENETTA MD Unavailable Unavailable MARKWITH, RENETTA MD Unavailable Unavailable MARKWITH, RENETTA MD Unavailable Unavailable MARKWITH, RENETTA MD Unavailable Unavailable MARKWITH, RENETTA MD Unavailable Unavailable MARKWITH, RENETTA MD Unavailable Unavailable MARKWITH, RENETTA MD Unavailable Unavailable MARKWITH, RENETTA MD Unavailable Unavailable MARKWITH, RENETTA MD Unavailable Unavailable MARKWITH, RENETTA MD Unavailable Unavailable MARKWITH, RENETTA MD Unavailable Unavailable MARKWITH, RENETTA MD Unavailable Unavailable Re-disclosure Warning The records that you are about to access may contain information from federally-assisted alcohol or drug abuse programs. If such information is present, then the following federally mandated warning applies: This information has been disclosed to you from records protected by federal confidentiality rules (42 CFR part 2). The federal rules prohibit you from making any further disclosure of this information unless further disclosure is expressly permitted by the written consent of the person to whom it pertains or as otherwise permitted by 42 CFR part 2. A general authorization for the release of medical or other information is NOT sufficient for this purpose. The Federal rules restrict any use of the information to criminally investigate or prosecute any alcohol or drug abuse patient.The records that you are about to access may contain highly sensitive health information, the redisclosure of which is protected by Article 27-F of the [facility] Public Health law. If you continue you may have access to information: Regarding HIV / AIDS; Provided by facilities licensed or operated by the [facility] Office of Mental Health; or Provided by the [facility] Office for People With Developmental Disabilities. If such information is present, then the following [facility] mandated warning applies: This information has been disclosed to you from confidential records which are protected by state law. State law prohibits you from making any further disclosure of this information without the specific written consent of the person to whom it pertains, or as otherwise permitted by law. Any unauthorized further disclosure in violation of state law may result in a fine or longterm sentence or both. A general authorization for the release of medical or other information is NOT sufficient authorization for further disc losure. Family History Family Member Name Family Member Gender Family Member Status Date o f Status Description Data Source(s) Unknown Male Problem [facility] ([facility] Encounters Encounter Providers Location Date Indications Data Source(s ) [facility]: [facility]00 PM EST [facility] Outpatient Attender: Angie URBAN 03/21 01:50:00 PM EST - 04/11/2020 01:50:00 PM EST [facility] Outpatient Attender: Angie URBAN Family Practice 03/21 12:40:00 PM EST [facility] ([facility] Outpatient Attender: RENETTA CRUZ MD Physical Therapy 09:00:00 AM EDT [facility] ([facility]) Outpatient Attender: Angie URBAN 12/19 01:48:00 PM EDT - 01/07/2020 01:48:00 PM EDT [facility] Outpatient Attender: RENETTA CRUZ MD Physical Therapy 03:30:00 PM EDT [facility] ([facility]) Outpatient Attender: K[facility]EL [facility]OPE[facility] 12/01/2019 03:48:00 PM EDT - 12/01/2019 03:48:00 PM EDT [facility] Outpatient Attender: Angie URBAN 09/18 01:32:00 PM EDT - 10/07/2019 01:32:00 PM EDT [facility] Outpatient Attender: RENETTA CRUZ MD Physical Therapy 02:30:00 PM EDT [facility] ([facility]) Outpatient Attender: Angie URBAN 08/19 01:29:00 PM EDT - 09/16/2019 01:29:00 PM EDT [facility] Outpatient Attender: Wei Salazar MD FP 2019 08:01:07 PM EDT [facility] Outpatient Referrer: RENETTA CRUZ MD 08/12/2019 08:27:0 0 AM EDT [facility] Outpatient Referrer: RENETTA CRUZ MD 07/29/2019 10:18:0 0 AM EDT [facility] Outpatient Referrer: RENETTA CRUZ MD 07/28/2019 10:54:0 0 AM EDT [facility] Outpatient Referrer: RENETTA CRUZ MD 07/28/2019 10:54:0 0 AM EDT [facility] Outpatient Referrer: RENETTA CRUZ MD 07/28/2019 10:54:0 0 AM EDT [facility] Outpatient Referrer: RENETTA CRUZ MD 07/28/2019 10:48:0 0 AM EDT [facility] Outpatient Referrer: RENETTA CRUZ MD 07/28/2019 10:23:0 0 AM EDT [facility] Outpatient 07/28/2019 10:22:00 AM EDT [facility] Outpatient Attender: Angie URBAN 06/20 10:56:00 AM EST - 07/02/2019 10:56:00 AM [facility] Outpatient Attender: Angie URBAN Family Practice 06/20 09:40:00 AM EST [facility] ([facility] Outpatient Referrer: Lola MUNOZ 06/30/2019 01:30:00 PM EST [facility] Outpatient Attender: Angie URBAN 05/21 10:54:00 AM EST - 06/17/2019 10:54:00 AM [facility] Outpatient Attender: Angie URBAN 05/21 01:50:00 PM EST - 06/09/2019 01:50:00 PM [facility] Outpatient Attender: Angie URBAN Family Practice 05/21 12:40:00 PM EST [facility] ([facility] Outpatient Attender: Wei Salaazr MD 05/29/2019 08:01:01 PM EST [facility] Medications Medication Brand Name Start Date Product Form Dose Route Admi nistrative Instructions Pharmacy Instructions Status Indications Reaction Description Data Source(s) pioglitazone 30 MG Oral Tablet Pioglitazone HCL 01/14/2020 12:00:00 A M EDT ORAL active [facility] ([facility]) Potassium Chloride 20 MEQ Extended Release Oral Tablet Potas sium Chloride ER 01/13/2020 12:00:00 AM EDT ORAL active [facility] ([facility]) Fenofibrate 145 MG Oral Tablet Fenofibrate 01/07/2020 12:00:00 AM EDT ORAL active [facility] ([facility]) Linagliptin 5 MG Oral Tablet [Tradjenta] Tradjenta 01/07/2020 12 :00:00 AM EDT ORAL completed [facility] ([facility]) Clotrimazole 10 MG/ML Topical Cream Clotrimazole Anti-Fungal 10/07/2019 12:00:00 AM EDT active [facility] ([facility]) Furosemide 40 MG Oral Tablet Furosemide 09/16/2019 12:00:00 AM EDT ORAL active [facility] ([facility]) Ibuprofen 800 MG Oral Tablet Ibuprofen 07/28/2019 12:00:00 AM EDT ORAL active [facility] ([facility]) Onetouch Ultra 2 06/29/2019 12:00:00 AM EST a ctive [facility] ([facility]) Blood Glucose Test 06/24/2019 12:00:00 AM EST active [facility] ([facility]) Lancets 06/24/2019 12:00:00 AM EST active [facility] ([facility]) Basaglar Kwikpen Basaglar Kwikpen 06/16/2019 12:00:00 AM EST completed [facility] ([facility]) 3 ML Insulin Glargine 100 UNT/ML Pen Injector [Lantus] Lantu s Solostar 06/16/2019 12:00:00 AM EST completed MED[facility] ([facility]) Morphine Sulfate 15 MG Extended Release Oral Tablet Morphine Sulfate ER 06/15/2019 12:00:00 AM EST ORAL active MED[facility] ([facility] ) Oxycodone Hydrochloride 15 MG Oral Tablet Oxycodone HCL 06/15/2019 12:00:00 AM EST ORAL active MED[facility] (No [facility] ) Ibuprofen 600 MG Oral Tablet Ibuprofen 06/15/2019 12:00:00 AM EST ORAL active MED[facility] ([facility]) sitagliptin 100 MG Oral Tablet [Januvia] Januvia 06/09/2019 12:00: 00 AM EST ORAL active MED[facility] ([facility]) Famotidine 20 MG Oral Tablet Famotidine 06/09/2019 12:00:00 AM EST ORAL active MED[facility] ([facility]) Insurance Providers Payer name Policy type / Coverage type Policy ID Covered alliance party ID Covered alliance party's relationship to martinez Policy Martinez Plan Information MEDICARE COMPLETE [id number] SP [id number] WELLCARE O [id number] S [id number] MEDICARE COMPLETE-UHC O [id number] S [id number] [place] [id number] 18 [id number] [place] [id number] 18 [id number] Unitedhealthcare Secure Horizons P [id number] S [id number] Medicare Wrap S [id number] S [id number] UNITED HEALTHCARE O [id number] S [id number] MEDICARE C [id number] S [id number] A MEDICARE COMPLETE [id number] SP [id number] MEDICARE COMPLETE-UHC O [id number] S [id number] [place] [id number] 18 [id number] United Healthcare (Medicare) Commercial [id number] Self [id number] MEDICARE COMPLETE [id number] SP [id number] MEDICARE COMPLETE [id number] SP [id number] SELF PAY UNAVAILABLE SP UNAVAILA BLE [employer] Commercial [id number] Self [id number] Unitedhealthcare Secure Horizons P [id number] S [id number] MEDICARE COMPLETE [id number] SP [id number] MEDICARE COMPLETE-UHC O [id number] S [id number] United Healthcare (Medicare) Commercial Self Medicare S [id number] S [id number] A UNITED HEALTHCARE O [id number] S [id number] Unitedhealthcare Secure Horizons P [id number] S [id number] Unitedhealthcare Secure Horizons S [id number] S [id number] Self Pay S [id number] S [id number] Medicare O UNAVAILABLE O UNAVAILA BLE Sliding Fee Scale O [id number] S [id number] MEDICARE [id number] SP [id number] A Problems, Conditions, and Diagnoses Code Display Name Description Problem Type Effective Dates Data Source(s) 130537003 Taking medication Taking medication Problem 01/06 12:00:00 AM EDT MED[facility] ([facility]) [id number] Disorder of bursa of shoulder region Dis order of bursa of shoulder region Problem 01/07/2020 12:00:00 AM EDT MED[facility] ([facility]) [id number] Shoulder joint pain Shoulder joint pain Problem 0 01/07/2020 12:00:00 AM EDT MED[facility] ([facility]) [id number] Essential hypertension Essential hypertension Problem 01/07/2020 12:00:00 AM EDT MED[facility] ([facility]) [id number] Type II diabetes mellitus uncontrolled T ype II diabetes mellitus uncontrolled Problem 01/07/2020 12:00:00 AM EDT [facility] ([facility]) [id number] Onychomycosis Onychomycosis Problem 01/07/2020 12:00:00 AM EDT [facility] ([facility]) Corns and callosities Corns and callosities Problem 12/01/2019 12:00:00 AM EDT [facility] (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) [id number] Pain in limb Pain in limb Problem 12/01/2019 12:00:00 A M EDT MED[facility] ([facility]) [id number] Dystrophia unguium Dystrophia unguium Problem 12:00:00 AM EDT [facility] ([facility]) [id number] Ingrowing nail Ingrowing nail Problem 12/01/2019 12:00: 00 AM EDT [facility] ([facility]) [id number] Pure hypercholesterolemia Pure hypercholesterolemia Pr oblem 07/30/2019 12:00:00 AM EDT MED[facility] ([facility] ) L600 Ingrowing nail Ingrowing nail Diagnosis 12/01/2019 03:48: 00 PM EDT [facility] [id number] Pain in left foot Pain in left foot Diagnosis 12/01/2019 03:48:00 PM EDT [facility] L84 Corns and callosities Corns and callosities Diagnosis 12/01/2019 03:48:00 PM EDT [facility] L603 Nail dystrophy Nail dystrophy Diagnosis 12/01/2019 03:48: 00 PM EDT [facility] E1149 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 Diagnosis [facility] in right shoulder Pain in right shoulder Diagnosi s 09/16/2019 01:29:00 PM EDT [facility] I10 Essential (primary) hypertension Essential (primary) h ypertension Diagnosis 09/16[facility]2019 [facility] Type 2 diabetes mellitus with hyperglyce jeanine Type 2 diabetes mellitus with hyperglycemia Diagnosis 09/16/2019 01:29:00 PM [facility] R99 Ill-defined and unknown cause of mortali ty Ill-defined and unknown cause of mortality Diagnosis 06/17/2019 10:54:00 AM [facility] [id number] Other fpc (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 O ther fpc (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 Diagnosis 06/09/2019 01:50:00 PM [facility] [id number] Encounter for other preprocedural examin ation Encounter for other preprocedural examination Diagnosis 06/09/2019 01:50:00 PM [facility] [id number] Unspecified rotator cuff tea r or rupture of right shoulder, not specified as traumatic Unspecified rotator cuff tear or rupture of right shoulder, not specified as traumatic Diagnosis 06/09/2019 01:50:00 PM [facility] Surgeries/Procedures Procedure Description Date Indications Data Source(s) PARING/CUTTING BENIGN HYPERKERATOTIC LESION 1 06/02/19 12:00:00 AM EST [facility] DEBRIDEMENT NAIL ANY METHOD 6/> 06/02/2020 12:00:00 AM EST [facility] ([facility] RADEX SHOULDER COMPLETE MINIMUM 2 VIEWS 05/23/2020 12: 00:00 AM EST [facility] ([facility] ) THERAPEUTIC PX / AREAS EACH 15 MIN EXERCISES 12:00:00 AM EDT [facility] ([facility] ) THERAPEUTIC PX 1/> AREAS EACH 15 MIN EXERCISES 12:00:00 AM EDT [facility] ([facility] ) THERAPEUTIC PX 1/> AREAS EACH 15 MIN EXERCISES 12:00:00 AM EDT [facility] ([facility] ) THERAPEUTIC PX 1/> AREAS EACH 15 MIN EXERCISES 12:00:00 AM EDT [facility] ([facility] ) THERAPEUTIC PX 1/> AREAS EACH 15 MIN EXERCISES 12:00:00 AM EDT [facility] ([facility] ) THERAPEUTIC PX 1/> AREAS EACH 15 MIN EXERCISES 12:00:00 AM EDT [facility] ([facility] ) THERAPEUTIC PX 1/> AREAS EACH 15 MIN EXERCISES 12:00:00 AM EDT [facility] ([facility] ) THERAPEUTIC PX 1/> AREAS EACH 15 MIN EXERCISES 12:00:00 AM EDT [facility] ([facility] ) Pare Hyperkeratotic Lesion, 2-4 12/01/2019 12:00:00 AM EDT [facility] ([facility]) THERAPEUTIC PX 1/> AREAS EACH 15 MIN EXERCISES 12:00:00 AM EDT [facility] ([facility] ) THERAPEUTIC PX 1/> AREAS EACH 15 MIN EXERCISES 12:00:00 AM EDT [facility] ([facility] ) THERAPEUTIC PX 1/> AREAS EACH 15 MIN EXERCISES 12:00:00 AM EDT [facility] ([facility] ) THERAPEUTIC PX 1/> AREAS EACH 15 MIN EXERCISES 12:00:00 AM EDT [facility] ([facility] ) THERAPEUTIC PX 1/> AREAS EACH 15 MIN EXERCISES 12:00:00 AM EDT [facility] ([facility] ) THERAPEUTIC PX 1/> AREAS EACH 15 MIN EXERCISES 12:00:00 AM EDT [facility] ([facility] ) THERAPEUTIC PX 1/> AREAS EACH 15 MIN EXERCISES 12:00:00 AM EDT [facility] ([facility] ) THERAPEUTIC PX 1/> AREAS EACH 15 MIN EXERCISES 12:00:00 AM EDT [facility] ([facility] ) THERAPEUTIC PX 1/> AREAS EACH 15 MIN EXERCISES 12:00:00 AM EDT [facility] ([facility] ) THERAPEUTIC PX 1/> AREAS EACH 15 MIN EXERCISES 12:00:00 AM EDT [facility] ([facility] ) MANUAL THERAPY TQS 1/> REGIONS EACH 15 MINUTES 12:00:00 AM EDT [facility] ([facility] ) THERAPEUTIC PX 1/> AREAS EACH 15 MIN EXERCISES 12:00:00 AM EDT [facility] ([facility] ) THERAPEUTIC PX 1/> AREAS EACH 15 MIN EXERCISES 12:00:00 AM EDT [facility] ([facility] ) MANUAL THERAPY TQS 1/> REGIONS EACH 15 MINUTES 12:00:00 AM EDT [facility] ([facility] ) THERAPEUTIC PX 1/> AREAS EACH 15 MIN EXERCISES 12:00:00 AM EDT [facility] ([facility] ) MANUAL THERAPY TQS 1/> REGIONS EACH 15 MINUTES 12:00:00 AM EDT [facility] ([facility] ) [place] 10/13/2019 12:00:00 AM EDT [facility] ([facility] ) THERAPEUTIC PX 1/> AREAS EACH 15 MIN EXERCISES 12:00:00 AM EDT [facility] ([facility] ) [place] 10/08/2019 12:00:00 AM EDT [facility] ([facility] ) THERAPEUTIC PX 1/> AREAS EACH 15 MIN EXERCISES 12:00:00 AM EDT MED[facility] ([facility] ) Admin Patient Focused Health Risk Assessment Instrument 10/07/2019 12:00:00 AM [facility]T [facility] THERAPEUTIC PX 1/> AREAS EACH 15 MIN EXERCISES 12:00:00 AM EDT [facility] ([facility] ) THERAPEUTIC PX 1/> AREAS EACH 15 MIN EXERCISES 12:00:00 AM EDT [facility] ([facility] ) THERAPEUTIC PX 1/> AREAS EACH 15 MIN EXERCISES 12:00:00 AM EDT [facility] ([facility] ) THERAPEUTIC PX 1/> AREAS EACH 15 MIN EXERCISES 12:00:00 AM EDT [facility] ([facility] ) THERAPEUTIC PX 1/> AREAS EACH 15 MIN EXERCISES 12:00:00 AM EDT [facility] ([facility] ) THERAPEUTIC PX 1/> AREAS EACH 15 MIN EXERCISES 12:00:00 AM EDT [facility] ([facility] ) THERAPEUTIC PX 1/> AREAS EACH 15 MIN EXERCISES 12:00:00 AM EDT [facility] ([facility] ) THERAPEUTIC PX 1/> AREAS EACH 15 MIN EXERCISES 12:00:00 AM EDT [facility] ([facility] ) THERAPEUTIC PX 1/> AREAS EACH 15 MIN EXERCISES 12:00:00 AM EDT [facility] ([facility] ) THERAPEUTIC PX 1/> AREAS EACH 15 MIN EXERCISES 12:00:00 AM EDT [facility] ([facility] ) THERAPEUTIC PX 1/> AREAS EACH 15 MIN EXERCISES 12:00:00 AM EDT [facility] ([facility] ) THERAPEUTIC PX 1/> AREAS EACH 15 MIN EXERCISES 12:00:00 AM EDT [facility] ([facility] ) THERAPEUTIC PX 1/> AREAS EACH 15 MIN EXERCISES 12:00:00 AM EDT [facility] ([facility] ) THERAPEUTIC PX 1/> AREAS EACH 15 MIN EXERCISES 12:00:00 AM EDT [facility] ([facility] ) THERAPEUTIC PX 1/> AREAS EACH 15 MIN EXERCISES 12:00:00 AM EDT [facility] ([facility] ) THERAPEUTIC PX 1/> AREAS EACH 15 MIN EXERCISES 12:00:00 AM EDT [facility] ([facility] ) THERAPEUTIC PX 1/> AREAS EACH 15 MIN EXERCISES 12:00:00 AM EDT MED[facility] ([facility] ) Massage, Each 15 Minutes 08/11/2019 12:00:00 AM EDT [facility] ([facility]) THERAPEUTIC PX 1/> AREAS EACH 15 MIN EXERCISES 12:00:00 AM EDT MED[facility] ([facility] ) Massage, Each 15 Minutes 08/06/2019 12:00:00 AM EDT [facility] ([facility] ) THERAPEUTIC PX 1/> AREAS EACH 15 MIN EXERCISES 12:00:00 AM EDT [facility] ([facility] ) Massage, Each 15 Minutes 08/04/2019 12:00:00 AM EDT [facility] ([facility] ) THERAPEUTIC PX 1/> AREAS EACH 15 MIN EXERCISES 12:00:00 AM EDT [facility] ([facility] ) Massage, Each 15 Minutes 07/30/2019 12:00:00 AM EDT [facility] ([facility] ) THERAPEUTIC PX 1/> AREAS EACH 15 MIN EXERCISES 12:00:00 AM EST [facility] ([facility] ) Massage, Each 15 Minutes 07/23/2019 12:00:00 AM EST [facility] ([facility] ) THERAPEUTIC PX 1/> AREAS EACH 15 MIN EXERCISES 12:00:00 AM EST [facility] ([facility] ) THERAPEUTIC PX 1/> AREAS EACH 15 MIN EXERCISES 12:00:00 AM EST [facility] ([facility] ) Massage, Each 15 Minutes 07/16/2019 12:00:00 AM EST [facility] ([facility] ) Physical Therapy Eval - Low Complexity 07/14/2019 12:0 0:00 AM EST [facility] ([facility] ) TENODESIS LONG TENDON BICEPS 06/19/2019 12:00:00 AM ES T MED[facility] ([facility] ) TENODESIS LONG TENDON BICEPS 06/19/2019 12:00:00 AM ES T MED[facility] ([facility] ) Arthroscopy Shoulder Remove Loose/Foreign Body Dist Clavicul ectom 06/19/2019 12:00:00 AM EST [facility] ([facility]) Arthroscopy Shoulder Removal Loose/Foreign Body Dist Clavicu lecto 06/19/2019 12:00:00 AM EST [facility] ([facility] ) SHOULDER SCOPE BONE SHAVING 06/19/2019 12:00:00 AM EST [facility] ([facility]) SHOULDER SCOPE BONE SHAVING 06/19/2019 12:00:00 AM EST [facility] ([facility]) Arthroscopy Shoulder Surgical With Rotator Cuff Repair 06/19/2019 12:00:00 AM EST [facility] ([facility]) Arthroscopy Shoulder Surgical W/Rotator Cuff Repair 06/19/2019 12:00:00 AM EST [facility] ([facility]) Results ID Date Data Source [id number] 01/06/2020 07:58:00 AM EDT [facility] ([facility]) Name Value Range Interpretation Code Description Data Maria M rce(s) Supporting Document(s) Thyrotropin [Units/volume] in Serum or Plasma 2.370 uIU/ML 0. 358-3.740 Normal (applies to non-numeric results) [facility] ([facility]) Magnesium [Mass/volume] in Serum or Plasma 1.7 mg/dL 1.8-2.4 Belo w low normal [facility] ([facility]) ID Date Data Source [id number] 01/06/2020 07:58:00 AM EDT [facility] ([facility]) Name Value Range Interpretation Code Description Data Maria M rce(s) Supporting Document(s) Triglycerides Level 272 mg/dL Above high normal [facility] ([facility]) HDL Cholesterol 31 mg/dL Below low normal MED ENT ([facility]) Cholesterol Level 134 mg/dL Normal (applies to non-numeri c results) [facility] ([facility]) LDL Cholesterol 49 mg/dL Normal (applies to non-numeric results) [facility] ([facility]) Cholesterol Risk Ratio 4.322 Normal (applies to non-n umeric results) [facility] ([facility]) Non-HDL-C 103 mg/dL Normal (applies to non-numeric resul ts) [facility] ([facility]) ID Date Data Source [id number] 01/06/2020 07:58:00 AM EDT [facility] ([facility]) Name Value Range Interpretation Code Description Data Maria M rce(s) Supporting Document(s) Glucose, Fasting 274 mg/dL 70-100 Above high normal M EDENT ([facility]) Blood Urea Nitrogen 20 mg/dL 7-18 Above high normal [facility] ([facility]) Creatinine For GFR 1.00 mg/dL 0.55-1.30 Normal (applies to non -numeric results) [facility] ([facility]) Glomerular Filtration Rate 58.7 Normal (applies to n on-numeric results) [facility] <content>Units are mL/min/1.73 m2</content>
<content></content>
<content>Chronic Kidney Disease Staging per NKF:</content>
<content></content>
<content>Stage I & II GFR >=60 Normal to Mildly Decreased</content>
<content>Stage III GFR 30- 59 Moderately Decreased</content>
<content>Stage IV GFR 15-29 Severely Decreased</content>
<content>Stage V GFR <15 Very Little GFR Left</content>
<content>ESRD GFR <15 on WINDOW TRIMMER</content>
<content></content> Sodium Level 140 meq/L 136-145 Normal (applies to non-numeric res ults) [facility] ([facility]) Potassium Serum 3.3 meq/L 3.5-5.1 Below low normal MED ENT ([facility]) Chloride Level 102 meq/L 98-107 Normal (applies to non-numeric r esults) [facility] ([facility]) Calcium Level 9.1 mg/dL 8.8-10.2 Normal (applies to non-numeric re sults) [facility] ([facility]) Carbon Dioxide Level 29 meq/L 21-32 Normal (applies to non-num delmy results) [facility] ([facility]) Anion Gap 9 meq/L 8-16 Normal (applies to non-numeric resul ts) [facility] ([facility]) Alt/SGPT 27 U/L 12-78 Normal (applies to non-numeric resul ts) [facility]) Ast/Sgot 17 U/L 7-37 Normal (applies to non-numeric resul ts) [facility] ([facility]) Alkaline Phosphatase 54 U/L 45-117 Normal (applies to non-num delmy results) [facility] ([facility]) Albumin 3.6 GM/DL 3.2-5.2 Normal (applies to non-numeric resul ts) [facility] ([facility]) Total Protein 7.2 GM/DL 6.4-8.2 Normal (applies to non-numeric re sults) [facility] ([facility]) Bilirubin,Total 0.4 mg/dL 0.2-1.0 Normal (applies to non-numeric results) [facility] ([facility]) Albumin/Globulin Ratio 1.0 1.2-2.2 Below low normal [facility] ([facility]) ID Date Data Source [id number] 01/06/2020 07:58:00 AM EDT [facility] ([facility]) Name Value Range Interpretation Code Description Data Maria M rce(s) Supporting Document(s) Hemoglobin A1c 10.7 % Normal (applies to non-numeric r esults) [facility] ([facility]) <content>REFERENCE RANGES:</content><br/ ><content></content>
<content><=5.6% NORMAL</content>
<content>5.7-6.4% SUGGESTS IMPAIRED GLUCOSE METABOLISM/PREDIABETIC</content>
<content>>= 6.5% ABNORMAL</content>
<content></content> Estimated Average Glucose 260 mg/dL 60-110 Above high normal [facility] ([facility]) ID Date Data Source [id number] 01/06/2020 07:58:00 AM EDT [facility] ([facility]) Name Value Range Interpretation Code Description Data Maria M rce(s) Supporting Document(s) White Blood Count 10.4 10 4.0-10.0 Above high normal [facility] ([facility]) Hematocrit 39.2 % 36.0-47.0 Normal (applies to non-numeric resul ts) [facility] ([facility]) Red Blood Count 4.61 10 4.00-5.40 Normal (applies to non-numeric results) [facility] ([facility]) Hemoglobin 13.4 g/dL 12.0-15.5 Normal (applies to non-numeric resul ts) [facility] ([facility]) Mean Corpuscular Volume 85.0 fl 80.0-96.0 Normal ( applies to non-numeric results) [facility] ([facility]) Mean Corpuscular HGB Conc 34.2 g/dL 32.0-36.5 Normal (applies to non-numeric results) [facility] ([facility]) Mean Corpuscular Hemoglobin 29.1 pg 27.0-33.0 Norm al (applies to non-numeric results) [facility] ([facility]) Platelet Count, Automated 290 10 150-450 Normal (applies to non-numeric results) [facility] ([facility]) Red Cell Distribution Width 12.8 % 11.5-14.5 Norm al (applies to non-numeric results) [facility] ([facility]) [place] % 6.0 % 0.0-5.0 Above high normal [facility] ([facility]) Neutrophils % 67.1 % 36.0-66.0 Above high normal MEDE NT ([facility]) Lymph % 20.2 % 24.0-44.0 Below low normal [facility] ( [facility]) Eos % 5.9 % 0.0-3.0 Above high normal [facility] ([facility]) Baso % 0.5 % 0.0-1.0 Normal (applies to non-numeric resul ts) [facility] ([facility]) Neutrophils # 7.0 10 1.5-8.5 Normal (applies to non-numeric re sults) [facility] ([facility]) Immature Granulocyte % 0.3 % 0-3.0 Normal (applies to non-n umeric results) [facility] ([facility]) Nucleated Red Blood Cell % 0.0 % 0-0 Normal (applies to n on-numeric results) [facility] ([facility]) Eos # 0.6 10 0.0-0.5 Above high normal [facility] ([facility]) [place] # 0.6 10 0.0-0.8 Normal (applies to non-numeric resul ts) [facility] ([facility]) Lymph # 2.1 10 1.5-5.0 Normal (applies to non-numeric resul ts) [facility] ([facility]) Baso # 0.1 10 0.0-0.2 Normal (applies to non-numeric resul ts) [facility] ([facility]) ID Date Data Source [id number] 10/02/2019 10:49:00 AM EDT [facility] ([facility]) Name Value Range Interpretation Code Description Data Maria M rce(s) Supporting Document(s) Thyrotropin [Units/volume] in Serum or Plasma 1.900 uIU/ML 0. 358-3.740 Normal (applies to non-numeric results) [facility] ([facility]) Magnesium [Mass/volume] in Serum or Plasma 1.8 mg/dL 1.8-2 .4 Normal (applies to non-numeric results) [facility] ([facility]) ID Date Data Source [id number] 10/02/2019 10:49:00 AM EDT [facility] ([facility]) Name Value Range Interpretation Code Description Data Maria M rce(s) Supporting Document(s) Triglycerides Level 240 mg/dL Above high normal [facility] ([facility]) HDL Cholesterol 33 mg/dL Below low normal MED ENT ([facility]) Cholesterol Level 137 mg/dL Normal (applies to non-numeri c results) [facility] ([facility]) Non-HDL-C 104 mg/dL Normal (applies to non-numeric resul ts) [facility] ([facility]) Cholesterol Risk Ratio 4.151 Normal (applies to non-n umeric results) [facility] ([facility]) LDL Cholesterol 56 mg/dL Normal (applies to non-numeric results) [facility] ([facility]) ID Date Data Source [id number] 10/02/2019 10:49:00 AM EDT [facility] ([facility]) Name Value Range Interpretation Code Description Data Maria M rce(s) Supporting Document(s) Glucose, Fasting 265 mg/dL 70-100 Above high normal M EDENT ([facility]) Blood Urea Nitrogen 17 mg/dL 7-18 Normal (applies to non-nume shelly results) [facility] ([facility]) Creatinine For GFR 0.92 mg/dL 0.55-1.30 Normal (applies to non -numeric results) [facility] ([facility]) Glomerular Filtration Rate Laboratory test result Normal (applies to non- numeric results) [facility]) <content>Units are mL/min/1.73 m2</content>
<content></content>
<content>Chronic Kidney Disease Staging per NKF:</content>
<content></content>
<content>Stage I & II GFR >=60 Normal to Mildly Decreased</content>
<content>Stage III GFR 30- 59 Moderately Decreased</content>
<content>Stage IV GFR 15-29 Severely Decreased</content>
<content>Stage V GFR <15 Very Little GFR Left</content>
<content>ESRD GFR <15 on WINDOW TRIMMER</content>
<content></content> Potassium Serum 3.5 meq/L 3.5-5.1 Normal (applies to non-numeric results) [facility] ([facility]) Sodium Level 140 meq/L 136-145 Normal (applies to non-numeric res ults) [facility] ([facility]) Chloride Level 99 meq/L 98-107 Normal (applies to non-numeric r esults) [facility]) Calcium Level 8.7 mg/dL 8.8-10.2 Below low normal MEDEN T ([facility]) Anion Gap 10 meq/L 8-16 Normal (applies to non-numeric resul ts) [facility] ([facility]) Carbon Dioxide Level 31 meq/L 21-32 Normal (applies to non-num delmy results) [facility] ([facility]) Ast/Sgot 12 U/L 7-37 Normal (applies to non-numeric resul ts) [facility]) Bilirubin,Total 0.5 mg/dL 0.2-1.0 Normal (applies to non-numeric results) [facility] ([facility]) Alt/SGPT 24 U/L 12-78 Normal (applies to non-numeric resul ts) [facility] ([facility]) Alkaline Phosphatase 52 U/L 45-117 Normal (applies to non-num delmy results) [facility] ([facility]) Albumin 3.5 GM/DL 3.2-5.2 Normal (applies to non-numeric resul ts) [facility] ([facility]) Albumin/Globulin Ratio 1.0 1.2-2.2 Below low normal [facility] ([facility]) Total Protein 7.0 GM/DL 6.4-8.2 Normal (applies to non-numeric re sults) [facility] ([facility]) ID Date Data Source [id number] 10/02/2019 10:49:00 AM EDT [facility] ([facility]) Name Value Range Interpretation Code Description Data Maria M rce(s) Supporting Document(s) Hemoglobin A1c 10.0 % Normal (applies to non-numeric r esults) [facility] ([facility]) REFERENCE RANGES: 4.5-5.6% NORMAL 5.7-6.4% SUGGESTS IMPAIRED GLUCOSE META BOLISM >= 6.5% ABNORMAL Estimated Average Glucose 240 mg/dL 60-110 Above high normal [facility] ([facility]) ID Date Data Source [id number] 10/02/2019 10:49:00 AM EDT [facility] ([facility]) Name Value Range Interpretation Code Description Data Maria M rce(s) Supporting Document(s) [place] % 6.9 % 0.0-5.0 Above high normal [facility] ([facility]) Neutrophils % 65.4 % 36.0-66.0 Normal (applies to non-numeric re sults) [facility] ([facility]) Lymph % 20.1 % 24.0-44.0 Below low normal [facility] ( [facility]) Immature Granulocyte % 0.4 % 0-3.0 Normal (applies to non-n umeric results) [facility] ([facility]) Eos % 6.6 % 0.0-3.0 Above high normal [facility] ([facility]) Baso % 0.6 % 0.0-1.0 Normal (applies to non-numeric resul ts) [facility] ([facility]) Lymph # 1.8 10 1.5-5.0 Normal (applies to non-numeric resul ts) [facility] ([facility]) [place] # 0.6 10 0.0-0.8 Normal (applies to non-numeric resul ts) [facility] ([facility]) Neutrophils # 5.9 10 1.5-8.5 Normal (applies to non-numeric re sults) [facility] ([facility]) Eos # 0.6 10 0.0-0.5 Above high normal [facility] ([facility]) Baso # 0.1 10 0.0-0.2 Normal (applies to non-numeric resul ts) [facility] ([facility]) ID Date Data Source [id number] 10/02/2019 10:49:00 AM EDT [facility] ([facility]) Name Value Range Interpretation Code Description Data Maria M rce(s) Supporting Document(s) Red Blood Count 4.51 10 4.00-5.40 Normal (applies to non-numeric results) [facility] ([facility]) Hemoglobin 12.9 g/dL 12.0-15.5 Normal (applies to non-numeric resul ts) [facility] ([facility]) White Blood Count 9.1 10 4.0-10.0 Normal (applies to non-numeri c results) [facility] ([facility]) Hematocrit 39.0 % 36.0-47.0 Normal (applies to non-numeric resul ts) [facility] ([facility]) Mean Corpuscular Hemoglobin 28.6 pg 27.0-33.0 Norm al (applies to non-numeric results) [facility] ([facility]) Mean Corpuscular Volume 86.5 fl 80.0-96.0 Normal ( applies to non-numeric results) [facility] ([facility]) Nucleated Red Blood Cell % 0.0 % 0-0 Normal (applies to n on-numeric results) [facility] ([facility]) Mean Corpuscular HGB Conc 33.1 g/dL 32.0-36.5 Normal (applies to non-numeric results) [facility] ([facility]) Red Cell Distribution Width 12.2 % 11.5-14.5 Norm al (applies to non-numeric results) [facility] ([facility]) Platelet Count, Automated 285 10 150-450 Normal (applies to non-numeric results) [facility]) ID Date Data Source [id number] 07/28/2019 12:00:00 AM EDT [facility] Renetta Cruz MD Patient Name: CLARA VALDES[address] [facility] Date of : 1950 89 Date of Exam: 07/28/2019LAZARO Berman [id number]#: Fax: [phone] EXAM: US EXTREMITY VEINS, UNILATERALCLINICAL INFORMATION: Right arm pain and swelling.Multiple ultrasonographic images of the deep venous structures of the rightupper extremity were obtained in a limited fashion. The technologist hasplaced in the patient's worksheet that due to the patient's significantupper extremity swelling, not all portions of the deep vein structurescould be interrogated with ultrasound. In addition, the patient could nottolerate the procedure due to pain and decreased [id number]. ColorDoppler imaging suggested patency of the right jugular, subclavian,axillary and brachial veins but this alone cannot completely rule out thepossibility of a small non-occlusive thrombus. Clinical correlation andfollowup may be necessary.NIKOS Langston/Costa you for referring CLARA VALDES to our office. Electronically Signed - SHANI SHAW DO 07/28/19 15:04 Name Value Range Interpretation Code Description Data Maria M rce(s) Supporting Document(s) ID Date Data Source [id number] 06/20/2019 11:45:00 AM EST [facility] ([facility]) Name Value Range Interpretation Code Description Data Maria M rce(s) Supporting Document(s) Glucose [Mass/volume] in Capillary blood by Glucometer 297 mg/dL 80- 115 [facility] ([facility]) ID Date Data Source [id number] 06/20/2019 07:11:00 AM EST [facility] ([facility]) Name Value Range Interpretation Code Description Data Maria M rce(s) Supporting Document(s) Glucose [Mass/volume] in Capillary blood by Glucometer 217 mg/dL 80- 115 [facility] ([facility]) ID Date Data Source [id number] 06/20/2019 06:42:00 AM EST [facility] ([facility]) Name Value Range Interpretation Code Description Data Maria M rce(s) Supporting Document(s) Troponin I.cardiac [Mass/volume] in Serum or Plasma Laboratory test result [facility] ([facility]) <content>Troponin I Reference Interval f or Siemens [place] LOCI:</content>
<content></content>
<content>99th Percentile= 0.00-0.045 ng/ml</content>
<content></content>
<content>Risk Stratification:</content>
<content><= 0.10 ng/ml Decreased Risk for Adverse Clinical</content>
<content>Events.</content>
<content>0.10-1.50 ng/ml Increased Risk for Adverse Clinical</content>
<content>Events. Evaluation of additional</content>
<content>criterion and/or repeat testing in 2-6</content>
<content>hours is suggested to rule out myocardial</content>
<content>damage.</content>
<content>>= 1.50 ng/ml Indicative of Myocardial Injury.</content>
<content></content> ID Date Data Source [id number] 06/19/2019 09:43:00 PM EST [facility] ([facility] ) Name Value Range Interpretation Code Description Data Maria M rce(s) Supporting Document(s) Troponin I.cardiac [Mass/volume] in Serum or Plasma Laboratory test result [facility] ([facility]) <content>Troponin I Reference Interval f or Siemens [place] LOCI:</content>
<content></content>
<content>99th Percentile= 0.00-0.045 ng/ml</content>
<content></content>
<content>Risk Stratification:</content>
<content><= 0.10 ng/ml Decreased Risk for Adverse Clinical</content>
<content>Events.</content>
<content>0.10-1.50 ng/ml Increased Risk for Adverse Clinical</content>
<content>Events. Evaluation of additional</content>
<content>criterion and/or repeat testing in 2-6</content>
<content>hours is suggested to rule out myocardial</content>
<content>damage.</content>
<content>>= 1.50 ng/ml Indicative of Myocardial Injury.</content>
<content></content> ID Date Data Source [id number] 06/19/2019 08:05:00 PM EST [facility] ([facility] ) Name Value Range Interpretation Code Description Data Maria M rce(s) Supporting Document(s) Glucose [Mass/volume] in Capillary blood by Glucometer 259 mg/dL 80- 115 [facility] ID Date Data Source [id number] 06/19/2019 05:06:00 PM EST [facility] ([facility] ) Name Value Range Interpretation Code Description Data Maria M rce(s) Supporting Document(s) Glucose [Mass/volume] in Capillary blood by Glucometer 251 mg/dL 80- 115 [facility] ([facility]) ID Date Data Source [id number] 06/19/2019 03:52:00 PM EST [facility] ([facility] ) Name Value Range Interpretation Code Description Data Maria M rce(s) Supporting Document(s) Troponin I.cardiac [Mass/volume] in Serum or Plasma Laboratory test result [facility] ([facility]) <content>Troponin I Reference Interval f or Siemens [place] LOCI:</content>
<content></content>
<content>99th Percentile= 0.00-0.045 ng/ml</content>
<content></content>
<content>Risk Stratification:</content>
<content><= 0.10 ng/ml Decreased Risk for Adverse Clinical</content>
<content>Events.</content>
<content>0.10-1.50 ng/ml Increased Risk for Adverse Clinical</content>
<content>Events. Evaluation of additional</content>
<content>criterion and/or repeat testing in 2-6</content>
<content>hours is suggested to rule out myocardial</content>
<content>damage.</content>
<content>>= 1.50 ng/ml Indicative of Myocardial Injury.</content>
<content></content> ID Date Data Source [id number] 06/19/2019 03:52:00 PM EST [facility] ([facility]) Name Value Range Interpretation Code Description Data Maria M rce(s) Supporting Document(s) Glucose, Fasting 294 mg/dL 70-100 [facility] ([facility]) Creatinine For GFR 1.08 mg/dL 0.55-1.30 [facility] ([facility]) Blood Urea Nitrogen 20 mg/dL 7-18 [facility] (No [facility] ) Sodium Level 138 meq/L 136-145 [facility] ([facility] ) Glomerular Filtration Rate 53.9 [facility] ([facility]) <content>Units are mL/min/1.73 m2</content>
<content></content>
<content>Chronic Kidney Disease Staging per NKF:</content>
<content></content>
<content>Stage I & II GFR >=60 Normal to Mildly Decreased</content>
<content>Stage III GFR 30- 59 Moderately Decreased</content>
<content>Stage IV GFR 15-29 Severely Decreased</content>
<content>Stage V GFR <15 Very Little GFR Left</content>
<content>ESRD GFR <15 on WINDOW TRIMMER</content>
<content></content> Chloride Level 103 meq/L 98-107 [facility]) Carbon Dioxide Level 24 meq/L 21-32 [facility] ([facility]) Potassium Serum 3.2 meq/L 3.5-5.1 [facility] ([facility]) Calcium Level 8.9 mg/dL 8.8-10.2 [facility] ([facility]) Anion Gap 11 meq/L 8-16 [facility] ([facility]) ID Date Data Source [id number] 06/19/2019 03:52:00 PM EST [facility] ([facility]) Name Value Range Interpretation Code Description Data Maria M rce(s) Supporting Document(s) CPK Creatine Phosphokinase 176 U/L 26-192 [facility] ([facility]) CK-MB Value Mass 2.8 ng/mL [facility] ([facility]) MB/CK Relative Index 1.59 [facility] ([facility]) <content>DIAGNOSIS CRITERIA</content>
<content>MMB ng/ml Relative Index (RI)</content>
<content>NON-AMI < or = 5 N/A</content>
<content>ATKINSON ZONE > 5 < or = 4</content>
<content>AMI > 5 > 4</content>
<content></content> ID Date Data Source [id number] 06/19/2019 03:52:00 PM EST [facility] ([facility]) Name Value Range Interpretation Code Description Data Maria M rce(s) Supporting Document(s) Red Blood Count 4.95 10 4.00-5.40 [facility] ([facility]) Hematocrit 44.0 % 36.0-47.0 [facility] ([facility]) White Blood Count 11.4 10 4.0-10.0 [facility] ([facility]) Hemoglobin 14.2 g/dL 12.0-15.5 [facility] ([facility]) Mean Corpuscular HGB Conc 32.3 g/dL 32.0-36.5 [facility] ([facility]) Mean Corpuscular Hemoglobin 28.7 pg 27.0-33.0 [facility] ([facility]) Mean Corpuscular Volume 88.9 fl 80.0-96.0 M [facility] ([facility]) Platelet Count, Automated 304 10 150-450 [facility] ([facility]) Red Cell Distribution Width 12.0 % 11.5-14.5 [facility] ([facility]) Nucleated Red Blood Cell % 0.0 % 0-0 [facility] ([facility]) ID Date Data Source [id number] 06/19/2019 02:58:00 PM EST [facility] ([facility]) Name Value Range Interpretation Code Description Data Maria M rce(s) Supporting Document(s) Glucose [Mass/volume] in Capillary blood by Glucometer 315 mg/dL 80- 115 [facility] ([facility]) ID Date Data Source [id number] 06/19/2019 01:01:00 PM EST [facility] ([facility]) Name Value Range Interpretation Code Description Data Maria M rce(s) Supporting Document(s) Surgical pathology study Laboratory test result [facility] ([facility]) FINAL DIAGNOSIS Right biceps proximal tendon: Portion of benign tendon without significant pathologic findings. 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 Pattern Chain Maker Supervisor sections submitted in one cassette. -MS 06/22/2019 - 1306 Signed KIP ARAUZ MD 06/23/2019 1326 ID Date Data Source [id number] 06/19/2019 09:28:00 AM EST [facility] ([facility]) Name Value Range Interpretation Code Description Data Maria M rce(s) Supporting Document(s) Glucose [Mass/volume] in Capillary blood by Glucometer 243 mg/dL 80- 115 [facility] ([facility]) ID Date Data Source [id number] 06/10/2019 05:12:00 PM EST [facility] Name Value Range Interpretation Code Description Data Maria M rce(s) Supporting Document(s) Prothrombin time (PT) 13.2 SECONDS 11.0 - 15.5 [facility] INR in Platelet poor plasma by Coagulation assay 0.99 0.93 - 1. 23 [facility] \\BLDo\\INR INTERPRETATION\\BLDx\\ Therapeutic range for Coumadin and related oral anticoagulants. - International Normalized Ratio (INR): 2.0 - 3.0 for Venous Thrombosis, Pulmonary Embolus, Tissue heart valves, Acute UT, Atrial Fibrillation, Valvular heart disease and recurrent Systemic Embolism. -International Normalized Ratio (INR): 2.5 - 3.5 for Mechanical Prosthetic valve. ID Date Data Source [id number] 06/09/2019 02:40:00 PM EST [facility] ([facility]) Name Value Range Interpretation Code Description Data Maria M rce(s) Supporting Document(s) Hemoglobin A1c/Hemoglobin.total in Blood 11.0 % 4.4-6.1 Above high normal [facility] ([facility]) .~.~<DG1.3.1>Z01.812</DG1.3.1><DG1.3.1>E11.65</DG1.3.1><DG1.3.1>Z79.899</DG1.3.1 ><DG Is patient fasting? N~.~.~<DG1.3.1>Z01.812</DG1.3.1><DG1.3.1>E11.65</DG1.3.1><DG1.3.1>Z79.899</D .~.~<DG1.3.1> Z01.812</DG1.3.1><DG1.3.1>E11.65</DG1.3.1><DG1.3.1>Z79.899</DG1.3.1><DG .~.~<DG1.3.1>Z01.812</DG1.3.1><DG1.3.1>E11.65</DG1.3.1><DG1.3.1>Z79.899</DG1.3.1 ><DG ID Date Data Source [id number] 06/09/2019 02:40:00 PM EST [facility] ([facility]) Name Value Range Interpretation Code Description Data Maria M rce(s) Supporting Document(s) Inr 0.99 0.93-1.23 [facility] ([facility]) .~.~<DG1.3.1>Z01.812</DG1.3.1><DG1.3.1>E11.65</DG1.3.1><DG1.3.1>Z79.899</DG1.3.1 ><DG Is patient fasting? N~.~.~<DG1.3.1>Z01.812</DG1.3.1><DG1.3.1>E11.65</DG1.3.1><DG1.3.1>Z79.899</D .~.~<DG1.3.1> Z01.812</DG1.3.1><DG1.3.1>E11.65</DG1.3.1><DG1.3.1>Z79.899</DG1.3.1><DG .~.~<DG1.3.1>Z01.812</DG1.3.1><DG1.3.1>E11.65</DG1.3.1><DG1.3.1>Z79.899</DG1.3.1 ><DG Protime 13.2 s 11.0-15.5 [facility] ([facility]) .~.~<DG1.3.1>Z01.812</DG1.3.1><DG1.3.1>E11.65</DG1.3.1><DG1.3.1>Z79.899</DG1.3.1 ><DG Is patient fasting? N~.~.~<DG1.3.1>Z01.812</DG1.3.1><DG1.3.1>E11.65</DG1.3.1><DG1.3.1>Z79.899</D .~.~<DG1.3.1> Z01.812</DG1.3.1><DG1.3.1>E11.65</DG1.3.1><DG1.3.1>Z79.899</DG1.3.1><DG .~.~<DG1.3.1>Z01.812</DG1.3.1><DG1.3.1>E11.65</DG1.3.1><DG1.3.1>Z79.899</DG1.3.1 ><DG ID Date Data Source [id number] 06/09/2019 02:40:00 PM EST [facility] ([facility]) Name Value Range Interpretation Code Description Data Maria M rce(s) Supporting Document(s) PTT 33.3 s 24.8-36.7 [facility] ([facility]) .~.~<DG1.3.1>Z01.812</DG1.3.1><DG1.3.1>E11.65</DG1.3.1><DG1.3.1>Z79.899</DG1.3.1 ><DG Is patient fasting? N~.~.~<DG1.3.1>Z01.812</DG1.3.1><DG1.3.1>E11.65</DG1.3.1><DG1.3.1>Z79.899</D .~.~<DG1.3.1> Z01.812</DG1.3.1><DG1.3.1>E11.65</DG1.3.1><DG1.3.1>Z79.899</DG1.3.1><DG .~.~<DG1.3.1>Z01.812</DG1.3.1><DG1.3.1>E11.65</DG1.3.1><DG1.3.1>Z79.899</DG1.3.1 ><DG Inr 0.99 0.93-1.23 [facility] ([facility]) .~.~<DG1.3.1>Z01.812</DG1.3.1><DG1.3.1>E11.65</DG1.3.1><DG1.3.1>Z79.899</DG1.3.1 ><DG Is patient fasting? N~.~.~<DG1.3.1>Z01.812</DG1.3.1><DG1.3.1>E11.65</DG1.3.1><DG1.3.1>Z79.899</D .~.~<DG1.3.1> Z01.812</DG1.3.1><DG1.3.1>E11.65</DG1.3.1><DG1.3.1>Z79.899</DG1.3.1><DG .~.~<DG1.3.1>Z01.812</DG1.3.1><DG1.3.1>E11.65</DG1.3.1><DG1.3.1>Z79.899</DG1.3.1 ><DG Protime 13.2 s 11.0-15.5 [facility]) .~.~<DG1.3.1>Z01.812</DG1.3.1><DG1.3.1>E11.65</DG1.3.1><DG1.3.1>Z79.899</DG1.3.1 ><DG Is patient fasting? N~.~.~<DG1.3.1>Z01.812</DG1.3.1><DG1.3.1>E11.65</DG1.3.1><DG1.3.1>Z79.899</D .~.~<DG1.3.1> Z01.812</DG1.3.1><DG1.3.1>E11.65</DG1.3.1><DG1.3.1>Z79.899</DG1.3.1><DG .~.~<DG1.3.1>Z01.812</DG1.3.1><DG1.3.1>E11.65</DG1.3.1><DG1.3.1>Z79.899</DG1.3.1 ><DG ID Date Data Source [id number] 06/09/2019 02:40:00 PM EST [facility] ([facility]) Name Value Range Interpretation Code Description Data Maria M rce(s) Supporting Document(s) Comprehensive [employer] Laboratory test result [facility] ([facility]) .~.~<DG1.3.1>Z01.812</DG1.3.1><DG1.3.1>E11.65</DG1.3.1><DG1.3.1>Z79.899</DG1.3.1 ><DG Is patient fasting? N~.~.~<DG1.3.1>Z01.812</DG1.3.1><DG1.3.1>E11.65</DG1.3.1><DG1.3.1>Z79.899</D .~.~<DG1.3.1> Z01.812</DG1.3.1><DG1.3.1>E11.65</DG1.3.1><DG1.3.1>Z79.899</DG1.3.1><DG .~.~<DG1.3.1>Z01.812</DG1.3.1><DG1.3.1>E11.65</DG1.3.1><DG1.3.1>Z79.899</DG1.3.1 ><DG Sodium 140 meq/L 134-153 [facility] ([facility]) .~.~<DG1.3.1>Z01.812</DG1.3.1><DG1.3.1>E11.65</DG1.3.1><DG1.3.1>Z79.899</DG1.3.1 ><DG Is patient fasting? N~.~.~<DG1.3.1>Z01.812</DG1.3.1><DG1.3.1>E11.65</DG1.3.1><DG1.3.1>Z79.899</D .~.~<DG1.3.1> Z01.812</DG1.3.1><DG1.3.1>E11.65</DG1.3.1><DG1.3.1>Z79.899</DG1.3.1><DG .~.~<DG1.3.1>Z01.812</DG1.3.1><DG1.3.1>E11.65</DG1.3.1><DG1.3.1>Z79.899</DG1.3.1 ><DG Chloride 99 meq/L 98-107 [facility] ([facility]) .~.~<DG1.3.1>Z01.812</DG1.3.1><DG1.3.1>E11.65</DG1.3.1><DG1.3.1>Z79.899</DG1.3.1 ><DG Is patient fasting? N~.~.~<DG1.3.1>Z01.812</DG1.3.1><DG1.3.1>E11.65</DG1.3.1><DG1.3.1>Z79.899</D .~.~<DG1.3.1> Z01.812</DG1.3.1><DG1.3.1>E11.65</DG1.3.1><DG1.3.1>Z79.899</DG1.3.1><DG .~.~<DG1.3.1>Z01.812</DG1.3.1><DG1.3.1>E11.65</DG1.3.1><DG1.3.1>Z79.899</DG1.3.1 ><DG Potassium 4.3 meq/L 3.6-5.0 [facility] ([facility]) .~.~<DG1.3.1>Z01.812</DG1.3.1><DG1.3.1>E11.65</DG1.3.1><DG1.3.1>Z79.899</DG1.3.1 ><DG Is patient fasting? N~.~.~<DG1.3.1>Z01.812</DG1.3.1><DG1.3.1>E11.65</DG1.3.1><DG1.3.1>Z79.899</D .~.~<DG1.3.1> Z01.812</DG1.3.1><DG1.3.1>E11.65</DG1.3.1><DG1.3.1>Z79.899</DG1.3.1><DG .~.~<DG1.3.1>Z01.812</DG1.3.1><DG1.3.1>E11.65</DG1.3.1><DG1.3.1>Z79.899</DG1.3.1 ><DG Co2 26 meq/L 22-30 [facility] ([facility]) .~.~<DG1.3.1>Z01.812</DG1.3.1><DG1.3.1>E11.65</DG1.3.1><DG1.3.1>Z79.899</DG1.3.1 ><DG Is patient fasting? N~.~.~<DG1.3.1>Z01.812</DG1.3.1><DG1.3.1>E11.65</DG1.3.1><DG1.3.1>Z79.899</D .~.~<DG1.3.1> Z01.812</DG1.3.1><DG1.3.1>E11.65</DG1.3.1><DG1.3.1>Z79.899</DG1.3.1><DG .~.~<DG1.3.1>Z01.812</DG1.3.1><DG1.3.1>E11.65</DG1.3.1><DG1.3.1>Z79.899</DG1.3.1 ><DG Glucose 293 mg/dL 65-110 Above high normal [facility] ([facility]) .~.~<DG1.3.1>Z01.812</DG1.3.1><DG1.3.1>E11.65</DG1.3.1><DG1.3.1>Z79.899</DG1.3.1 ><DG Is patient fasting? N~.~.~<DG1.3.1>Z01.812</DG1.3.1><DG1.3.1>E11.65</DG1.3.1><DG1.3.1>Z79.899</D .~.~<DG1.3.1> Z01.812</DG1.3.1><DG1.3.1>E11.65</DG1.3.1><DG1.3.1>Z79.899</DG1.3.1><DG .~.~<DG1.3.1>Z01.812</DG1.3.1><DG1.3.1>E11.65</DG1.3.1><DG1.3.1>Z79.899</DG1.3.1 ><DG Creatinine 0.8 mg/dL 0.7-1.5 [facility] ([facility]) .~.~<DG1.3.1>Z01.812</DG1.3.1><DG1.3.1>E11.65</DG1.3.1><DG1.3.1>Z79.899</DG1.3.1 ><DG Is patient fasting? N~.~.~<DG1.3.1>Z01.812</DG1.3.1><DG1.3.1>E11.65</DG1.3.1><DG1.3.1>Z79.899</D .~.~<DG1.3.1> Z01.812</DG1.3.1><DG1.3.1>E11.65</DG1.3.1><DG1.3.1>Z79.899</DG1.3.1><DG .~.~<DG1.3.1>Z01.812</DG1.3.1><DG1.3.1>E11.65</DG1.3.1><DG1.3.1>Z79.899</DG1.3.1 ><DG BUN 16 mg/dL 7-21 [facility] .~.~<DG1.3.1>Z01.812</DG1.3.1><DG1.3.1>E11.65</DG1.3.1><DG1.3.1>Z79.899</DG1.3.1 ><DG Is patient fasting? N~.~.~<DG1.3.1>Z01.812</DG1.3.1><DG1.3.1>E11.65</DG1.3.1><DG1.3.1>Z79.899</D .~.~<DG1.3.1> Z01.812</DG1.3.1><DG1.3.1>E11.65</DG1.3.1><DG1.3.1>Z79.899</DG1.3.1><DG .~.~<DG1.3.1>Z01.812</DG1.3.1><DG1.3.1>E11.65</DG1.3.1><DG1.3.1>Z79.899</DG1.3.1 ><DG Total Protein 7.3 g/dL 6.3-8.2 [facility] ([facility]) .~.~<DG1.3.1>Z01.812</DG1.3.1><DG1.3.1>E11.65</DG1.3.1><DG1.3.1>Z79.899</DG1.3.1 ><DG Is patient fasting? N~.~.~<DG1.3.1>Z01.812</DG1.3.1><DG1.3.1>E11.65</DG1.3.1><DG1.3.1>Z79.899</D .~.~<DG1.3.1> Z01.812</DG1.3.1><DG1.3.1>E11.65</DG1.3.1><DG1.3.1>Z79.899</DG1.3.1><DG .~.~<DG1.3.1>Z01.812</DG1.3.1><DG1.3.1>E11.65</DG1.3.1><DG1.3.1>Z79.899</DG1.3.1 ><DG BUN/Creat 20 8-27 [facility] ([facility]) .~.~<DG1.3.1>Z01.812</DG1.3.1><DG1.3.1>E11.65</DG1.3.1><DG1.3.1>Z79.899</DG1.3.1 ><DG Is patient fasting? N~.~.~<DG1.3.1>Z01.812</DG1.3.1><DG1.3.1>E11.65</DG1.3.1><DG1.3.1>Z79.899</D .~.~<DG1.3.1> Z01.812</DG1.3.1><DG1.3.1>E11.65</DG1.3.1><DG1.3.1>Z79.899</DG1.3.1><DG .~.~<DG1.3.1>Z01.812</DG1.3.1><DG1.3.1>E11.65</DG1.3.1><DG1.3.1>Z79.899</DG1.3.1 ><DG Globulin 2.9 GM/DL 2.4-3.2 [facility] ([facility]) .~.~<DG1.3.1>Z01.812</DG1.3.1><DG1.3.1>E11.65</DG1.3.1><DG1.3.1>Z79.899</DG1.3.1 ><DG Is patient fasting? N~.~.~<DG1.3.1>Z01.812</DG1.3.1><DG1.3.1>E11.65</DG1.3.1><DG1.3.1>Z79.899</D .~.~<DG1.3.1> Z01.812</DG1.3.1><DG1.3.1>E11.65</DG1.3.1><DG1.3.1>Z79.899</DG1.3.1><DG .~.~<DG1.3.1>Z01.812</DG1.3.1><DG1.3.1>E11.65</DG1.3.1><DG1.3.1>Z79.899</DG1.3.1 ><DG Albumin 4.4 g/dL 3.9-5.0 [facility] ([facility]) .~.~<DG1.3.1>Z01.812</DG1.3.1><DG1.3.1>E11.65</DG1.3.1><DG1.3.1>Z79.899</DG1.3.1 ><DG Is patient fasting? N~.~.~<DG1.3.1>Z01.812</DG1.3.1><DG1.3.1>E11.65</DG1.3.1><DG1.3.1>Z79.899</D .~.~<DG1.3.1> Z01.812</DG1.3.1><DG1.3.1>E11.65</DG1.3.1><DG1.3.1>Z79.899</DG1.3.1><DG .~.~<DG1.3.1>Z01.812</DG1.3.1><DG1.3.1>E11.65</DG1.3.1><DG1.3.1>Z79.899</DG1.3.1 ><DG A/G Ratio 1.5 0.8-2.0 [facility] ([facility]) .~.~<DG1.3.1>Z01.812</DG1.3.1><DG1.3.1>E11.65</DG1.3.1><DG1.3.1>Z79.899</DG1.3.1 ><DG Is patient fasting? N~.~.~<DG1.3.1>Z01.812</DG1.3.1><DG1.3.1>E11.65</DG1.3.1><DG1.3.1>Z79.899</D .~.~<DG1.3.1> Z01.812</DG1.3.1><DG1.3.1>E11.65</DG1.3.1><DG1.3.1>Z79.899</DG1.3.1><DG .~.~<DG1.3.1>Z01.812</DG1.3.1><DG1.3.1>E11.65</DG1.3.1><DG1.3.1>Z79.899</DG1.3.1 ><DG Calcium 9.7 mg/dL 8.4-10.2 [facility] ([facility]) .~.~<DG1.3.1>Z01.812</DG1.3.1><DG1.3.1>E11.65</DG1.3.1><DG1.3.1>Z79.899</DG1.3.1 ><DG Is patient fasting? N~.~.~<DG1.3.1>Z01.812</DG1.3.1><DG1.3.1>E11.65</DG1.3.1><DG1.3.1>Z79.899</D .~.~<DG1.3.1> Z01.812</DG1.3.1><DG1.3.1>E11.65</DG1.3.1><DG1.3.1>Z79.899</DG1.3.1><DG .~.~<DG1.3.1>Z01.812</DG1.3.1><DG1.3.1>E11.65</DG1.3.1><DG1.3.1>Z79.899</DG1.3.1 ><DG Alkaline Phos 52 U/L 38-126 [facility] ([facility]) .~.~<DG1.3.1>Z01.812</DG1.3.1><DG1.3.1>E11.65</DG1.3.1><DG1.3.1>Z79.899</DG1.3.1 ><DG Is patient fasting? N~.~.~<DG1.3.1>Z01.812</DG1.3.1><DG1.3.1>E11.65</DG1.3.1><DG1.3.1>Z79.899</D .~.~<DG1.3.1> Z01.812</DG1.3.1><DG1.3.1>E11.65</DG1.3.1><DG1.3.1>Z79.899</DG1.3.1><DG .~.~<DG1.3.1>Z01.812</DG1.3.1><DG1.3.1>E11.65</DG1.3.1><DG1.3.1>Z79.899</DG1.3.1 ><DG Total Bili 0.7 mg/dL 0.2-1.3 [facility] ([facility]) .~.~<DG1.3.1>Z01.812</DG1.3.1><DG1.3.1>E11.65</DG1.3.1><DG1.3.1>Z79.899</DG1.3.1 ><DG Is patient fasting? N~.~.~<DG1.3.1>Z01.812</DG1.3.1><DG1.3.1>E11.65</DG1.3.1><DG1.3.1>Z79.899</D .~.~<DG1.3.1> Z01.812</DG1.3.1><DG1.3.1>E11.65</DG1.3.1><DG1.3.1>Z79.899</DG1.3.1><DG .~.~<DG1.3.1>Z01.812</DG1.3.1><DG1.3.1>E11.65</DG1.3.1><DG1.3.1>Z79.899</DG1.3.1 ><DG Sgot/Ast 21 U/L 5-40 [facility] ([facility]) .~.~<DG1.3.1>Z01.812</DG1.3.1><DG1.3.1>E11.65</DG1.3.1><DG1.3.1>Z79.899</DG1.3.1 ><DG Is patient fasting? N~.~.~<DG1.3.1>Z01.812</DG1.3.1><DG1.3.1>E11.65</DG1.3.1><DG1.3.1>Z79.899</D .~.~<DG1.3.1> Z01.812</DG1.3.1><DG1.3.1>E11.65</DG1.3.1><DG1.3.1>Z79.899</DG1.3.1><DG .~.~<DG1.3.1>Z01.812</DG1.3.1><DG1.3.1>E11.65</DG1.3.1><DG1.3.1>Z79.899</DG1.3.1 ><DG Age 68 yrs [facility] ([facility]) .~.~<DG1.3.1>Z01.812</DG1.3.1><DG1.3.1>E11.65</DG1.3.1><DG1.3.1>Z79.899</DG1.3.1 ><DG Is patient fasting? N~.~.~<DG1.3.1>Z01.812</DG1.3.1><DG1.3.1>E11.65</DG1.3.1><DG1.3.1>Z79.899</D .~.~<DG1.3.1> Z01.812</DG1.3.1><DG1.3.1>E11.65</DG1.3.1><DG1.3.1>Z79.899</DG1.3.1><DG .~.~<DG1.3.1>Z01.812</DG1.3.1><DG1.3.1>E11.65</DG1.3.1><DG1.3.1>Z79.899</DG1.3.1 ><DG SGPT/Alt 18 U/L 7-56 [facility] ([facility]) .~.~<DG1.3.1>Z01.812</DG1.3.1><DG1.3.1>E11.65</DG1.3.1><DG1.3.1>Z79.899</DG1.3.1 ><DG Is patient fasting? N~.~.~<DG1.3.1>Z01.812</DG1.3.1><DG1.3.1>E11.65</DG1.3.1><DG1.3.1>Z79.899</D .~.~<DG1.3.1> Z01.812</DG1.3.1><DG1.3.1>E11.65</DG1.3.1><DG1.3.1>Z79.899</DG1.3.1><DG .~.~<DG1.3.1>Z01.812</DG1.3.1><DG1.3.1>E11.65</DG1.3.1><DG1.3.1>Z79.899</DG1.3.1 ><DG Anion Gap 15.0 mmol/L 8.0-16.0 [facility] ([facility]) .~.~<DG1.3.1>Z01.812</DG1.3.1><DG1.3.1>E11.65</DG1.3.1><DG1.3.1>Z79.899</DG1.3.1 ><DG Is patient fasting? N~.~.~<DG1.3.1>Z01.812</DG1.3.1><DG1.3.1>E11.65</DG1.3.1><DG1.3.1>Z79.899</D .~.~<DG1.3.1> Z01.812</DG1.3.1><DG1.3.1>E11.65</DG1.3.1><DG1.3.1>Z79.899</DG1.3.1><DG .~.~<DG1.3.1>Z01.812</DG1.3.1><DG1.3.1>E11.65</DG1.3.1><DG1.3.1>Z79.899</DG1.3.1 ><DG Non-Aa GFR Laboratory [facility]) .~.~<DG1.3.1>Z01.812</DG1.3.1><DG1.3.1>E11.65</DG1.3.1><DG1.3.1>Z79.899</DG1.3.1 ><DG Is patient fasting? N~.~.~<DG1.3.1>Z01.812</DG1.3.1><DG1.3.1>E11.65</DG1.3.1><DG1.3.1>Z79.899</D .~.~<DG1.3.1> Z01.812</DG1.3.1><DG1.3.1>E11.65</DG1.3.1><DG1.3.1>Z79.899</DG1.3.1><DG .~.~<DG1.3.1>Z01.812</DG1.3.1><DG1.3.1>E11.65</DG1.3.1><DG1.3.1>Z79.899</DG1.3.1 ><DG Afr Amer GFR Laboratory test result [facility] ([facility]) .~.~<DG1.3.1>Z01.812</DG1.3.1><DG1.3.1>E11.65</DG1.3.1><DG1.3.1>Z79.899</DG1.3.1 ><DG Is patient fasting? N~.~.~<DG1.3.1>Z01.812</DG1.3.1><DG1.3.1>E11.65</DG1.3.1><DG1.3.1>Z79.899</D .~.~<DG1.3.1> Z01.812</DG1.3.1><DG1.3.1>E11.65</DG1.3.1><DG1.3.1>Z79.899</DG1.3.1><DG .~.~<DG1.3.1>Z01.812</DG1.3.1><DG1.3.1>E11.65</DG1.3.1><DG1.3.1>Z79.899</DG1.3.1 ><DG ID Date Data Source [id number] 06/09/2019 02:40:00 PM EST [facility] ([facility]) Name Value Range Interpretation Code Description Data Maria M rce(s) Supporting Document(s) CBC W/Automated Diff Laboratory test result [facility] ([facility]) .~.~<DG1.3.1>Z01.812</DG1.3.1><DG1.3.1>E11.65</DG1.3.1><DG1.3.1>Z79.899</DG1.3.1 ><DG Is patient fasting? N~.~.~<DG1.3.1>Z01.812</DG1.3.1><DG1.3.1>E11.65</DG1.3.1><DG1.3.1>Z79.899</D .~.~<DG1.3.1> Z01.812</DG1.3.1><DG1.3.1>E11.65</DG1.3.1><DG1.3.1>Z79.899</DG1.3.1><DG .~.~<DG1.3.1>Z01.812</DG1.3.1><DG1.3.1>E11.65</DG1.3.1><DG1.3.1>Z79.899</DG1.3.1 ><DG WBC 10.6 10^3/uL 4.2-11.0 [facility] ([facility]) .~.~<DG1.3.1>Z01.812</DG1.3.1><DG1.3.1>E11.65</DG1.3.1><DG1.3.1>Z79.899</DG1.3.1 ><DG Is patient fasting? N~.~.~<DG1.3.1>Z01.812</DG1.3.1><DG1.3.1>E11.65</DG1.3.1><DG1.3.1>Z79.899</D .~.~<DG1.3.1> Z01.812</DG1.3.1><DG1.3.1>E11.65</DG1.3.1><DG1.3.1>Z79.899</DG1.3.1><DG .~.~<DG1.3.1>Z01.812</DG1.3.1><DG1.3.1>E11.65</DG1.3.1><DG1.3.1>Z79.899</DG1.3.1 ><DG Hematocrit 43.7 % 37.0-47.0 [facility] ([facility]) .~.~<DG1.3.1>Z01.812</DG1.3.1><DG1.3.1>E11.65</DG1.3.1><DG1.3.1>Z79.899</DG1.3.1 ><DG Is patient fasting? N~.~.~<DG1.3.1>Z01.812</DG1.3.1><DG1.3.1>E11.65</DG1.3.1><DG1.3.1>Z79.899</D .~.~<DG1.3.1> Z01.812</DG1.3.1><DG1.3.1>E11.65</DG1.3.1><DG1.3.1>Z79.899</DG1.3.1><DG .~.~<DG1.3.1>Z01.812</DG1.3.1><DG1.3.1>E11.65</DG1.3.1><DG1.3.1>Z79.899</DG1.3.1 ><DG MCV 89.7 fL 81.0-101 [facility] ([facility]) .~.~<DG1.3.1>Z01.812</DG1.3.1><DG1.3.1>E11.65</DG1.3.1><DG1.3.1>Z79.899</DG1.3.1 ><DG Is patient fasting? N~.~.~<DG1.3.1>Z01.812</DG1.3.1><DG1.3.1>E11.65</DG1.3.1><DG1.3.1>Z79.899</D .~.~<DG1.3.1> Z01.812</DG1.3.1><DG1.3.1>E11.65</DG1.3.1><DG1.3.1>Z79.899</DG1.3.1><DG .~.~<DG1.3.1>Z01.812</DG1.3.1><DG1.3.1>E11.65</DG1.3.1><DG1.3.1>Z79.899</DG1.3.1 ><DG Hemoglobin 14.2 g/dL 12.0-16.0 [facility] ([facility]) .~.~<DG1.3.1>Z01.812</DG1.3.1><DG1.3.1>E11.65</DG1.3.1><DG1.3.1>Z79.899</DG1.3.1 ><DG Is patient fasting? N~.~.~<DG1.3.1>Z01.812</DG1.3.1><DG1.3.1>E11.65</DG1.3.1><DG1.3.1>Z79.899</D .~.~<DG1.3.1> Z01.812</DG1.3.1><DG1.3.1>E11.65</DG1.3.1><DG1.3.1>Z79.899</DG1.3.1><DG .~.~<DG1.3.1>Z01.812</DG1.3.1><DG1.3.1>E11.65</DG1.3.1><DG1.3.1>Z79.899</DG1.3.1 ><DG RBC 4.87 10^6/uL 4.20-5.40 [facility] ([facility]) .~.~<DG1.3.1>Z01.812</DG1.3.1><DG1.3.1>E11.65</DG1.3.1><DG1.3.1>Z79.899</DG1.3.1 ><DG Is patient fasting? N~.~.~<DG1.3.1>Z01.812</DG1.3.1><DG1.3.1>E11.65</DG1.3.1><DG1.3.1>Z79.899</D .~.~<DG1.3.1> Z01.812</DG1.3.1><DG1.3.1>E11.65</DG1.3.1><DG1.3.1>Z79.899</DG1.3.1><DG .~.~<DG1.3.1>Z01.812</DG1.3.1><DG1.3.1>E11.65</DG1.3.1><DG1.3.1>Z79.899</DG1.3.1 ><DG MCHC 32.5 g/dL 31.0-36.0 [facility] ([facility]) .~.~<DG1.3.1>Z01.812</DG1.3.1><DG1.3.1>E11.65</DG1.3.1><DG1.3.1>Z79.899</DG1.3.1 ><DG Is patient fasting? N~.~.~<DG1.3.1>Z01.812</DG1.3.1><DG1.3.1>E11.65</DG1.3.1><DG1.3.1>Z79.899</D .~.~<DG1.3.1> Z01.812</DG1.3.1><DG1.3.1>E11.65</DG1.3.1><DG1.3.1>Z79.899</DG1.3.1><DG .~.~<DG1.3.1>Z01.812</DG1.3.1><DG1.3.1>E11.65</DG1.3.1><DG1.3.1>Z79.899</DG1.3.1 ><DG MCH 29.2 pg 27.0-34.0 [facility] ([facility]) .~.~<DG1.3.1>Z01.812</DG1.3.1><DG1.3.1>E11.65</DG1.3.1><DG1.3.1>Z79.899</DG1.3.1 ><DG Is patient fasting? N~.~.~<DG1.3.1>Z01.812</DG1.3.1><DG1.3.1>E11.65</DG1.3.1><DG1.3.1>Z79.899</D .~.~<DG1.3.1> Z01.812</DG1.3.1><DG1.3.1>E11.65</DG1.3.1><DG1.3.1>Z79.899</DG1.3.1><DG .~.~<DG1.3.1>Z01.812</DG1.3.1><DG1.3.1>E11.65</DG1.3.1><DG1.3.1>Z79.899</DG1.3.1 ><DG RDW 12.2 % 11.5-14.5 [facility] ([facility]) .~.~<DG1.3.1>Z01.812</DG1.3.1><DG1.3.1>E11.65</DG1.3.1><DG1.3.1>Z79.899</DG1.3.1 ><DG Is patient fasting? N~.~.~<DG1.3.1>Z01.812</DG1.3.1><DG1.3.1>E11.65</DG1.3.1><DG1.3.1>Z79.899</D .~.~<DG1.3.1> Z01.812</DG1.3.1><DG1.3.1>E11.65</DG1.3.1><DG1.3.1>Z79.899</DG1.3.1><DG .~.~<DG1.3.1>Z01.812</DG1.3.1><DG1.3.1>E11.65</DG1.3.1><DG1.3.1>Z79.899</DG1.3.1 ><DG Neut 66.9 % 37.0-80.0 [facility] ([facility]) .~.~<DG1.3.1>Z01.812</DG1.3.1><DG1.3.1>E11.65</DG1.3.1><DG1.3.1>Z79.899</DG1.3.1 ><DG Is patient fasting? N~.~.~<DG1.3.1>Z01.812</DG1.3.1><DG1.3.1>E11.65</DG1.3.1><DG1.3.1>Z79.899</D .~.~<DG1.3.1> Z01.812</DG1.3.1><DG1.3.1>E11.65</DG1.3.1><DG1.3.1>Z79.899</DG1.3.1><DG .~.~<DG1.3.1>Z01.812</DG1.3.1><DG1.3.1>E11.65</DG1.3.1><DG1.3.1>Z79.899</DG1.3.1 ><DG MPV 10.7 fL 7.4-10.4 Above high normal [facility] ([facility]) .~.~<DG1.3.1>Z01.812</DG1.3.1><DG1.3.1>E11.65</DG1.3.1><DG1.3.1>Z79.899</DG1.3.1 ><DG Is patient fasting? N~.~.~<DG1.3.1>Z01.812</DG1.3.1><DG1.3.1>E11.65</DG1.3.1><DG1.3.1>Z79.899</D .~.~<DG1.3.1> Z01.812</DG1.3.1><DG1.3.1>E11.65</DG1.3.1><DG1.3.1>Z79.899</DG1.3.1><DG .~.~<DG1.3.1>Z01.812</DG1.3.1><DG1.3.1>E11.65</DG1.3.1><DG1.3.1>Z79.899</DG1.3.1 ><DG Platelets 278 10^3/uL 150-450 [facility] ([facility]) .~.~<DG1.3.1>Z01.812</DG1.3.1><DG1.3.1>E11.65</DG1.3.1><DG1.3.1>Z79.899</DG1.3.1 ><DG Is patient fasting? N~.~.~<DG1.3.1>Z01.812</DG1.3.1><DG1.3.1>E11.65</DG1.3.1><DG1.3.1>Z79.899</D .~.~<DG1.3.1> Z01.812</DG1.3.1><DG1.3.1>E11.65</DG1.3.1><DG1.3.1>Z79.899</DG1.3.1><DG .~.~<DG1.3.1>Z01.812</DG1.3.1><DG1.3.1>E11.65</DG1.3.1><DG1.3.1>Z79.899</DG1.3.1 ><DG Lymph 20.9 % 25.0-40.0 Below low normal [facility] ( [facility]) .~.~<DG1.3.1>Z01.812</DG1.3.1><DG1.3.1>E11.65</DG1.3.1><DG1.3.1>Z79.899</DG1.3.1 ><DG Is patient fasting? N~.~.~<DG1.3.1>Z01.812</DG1.3.1><DG1.3.1>E11.65</DG1.3.1><DG1.3.1>Z79.899</D .~.~<DG1.3.1> Z01.812</DG1.3.1><DG1.3.1>E11.65</DG1.3.1><DG1.3.1>Z79.899</DG1.3.1><DG .~.~<DG1.3.1>Z01.812</DG1.3.1><DG1.3.1>E11.65</DG1.3.1><DG1.3.1>Z79.899</DG1.3.1 ><DG Eos 5.2 % 0.0-7.0 [facility] ([facility]) .~.~<DG1.3.1>Z01.812</DG1.3.1><DG1.3.1>E11.65</DG1.3.1><DG1.3.1>Z79.899</DG1.3.1 ><DG Is patient fasting? N~.~.~<DG1.3.1>Z01.812</DG1.3.1><DG1.3.1>E11.65</DG1.3.1><DG1.3.1>Z79.899</D .~.~<DG1.3.1> Z01.812</DG1.3.1><DG1.3.1>E11.65</DG1.3.1><DG1.3.1>Z79.899</DG1.3.1><DG .~.~<DG1.3.1>Z01.812</DG1.3.1><DG1.3.1>E11.65</DG1.3.1><DG1.3.1>Z79.899</DG1.3.1 ><DG [place] 6.2 % 3.0-8.0 [facility] ([facility]) .~.~<DG1.3.1>Z01.812</DG1.3.1><DG1.3.1>E11.65</DG1.3.1><DG1.3.1>Z79.899</DG1.3.1 ><DG Is patient fasting? N~.~.~<DG1.3.1>Z01.812</DG1.3.1><DG1.3.1>E11.65</DG1.3.1><DG1.3.1>Z79.899</D .~.~<DG1.3.1> Z01.812</DG1.3.1><DG1.3.1>E11.65</DG1.3.1><DG1.3.1>Z79.899</DG1.3.1><DG .~.~<DG1.3.1>Z01.812</DG1.3.1><DG1.3.1>E11.65</DG1.3.1><DG1.3.1>Z79.899</DG1.3.1 ><DG %Ig 0.3 % 0.0-0.0 Above high normal [facility] ([facility]) .~.~<DG1.3.1>Z01.812</DG1.3.1><DG1.3.1>E11.65</DG1.3.1><DG1.3.1>Z79.899</DG1.3.1 ><DG Is patient fasting? N~.~.~<DG1.3.1>Z01.812</DG1.3.1><DG1.3.1>E11.65</DG1.3.1><DG1.3.1>Z79.899</D .~.~<DG1.3.1> Z01.812</DG1.3.1><DG1.3.1>E11.65</DG1.3.1><DG1.3.1>Z79.899</DG1.3.1><DG .~.~<DG1.3.1>Z01.812</DG1.3.1><DG1.3.1>E11.65</DG1.3.1><DG1.3.1>Z79.899</DG1.3.1 ><DG %NRBC 0.0 % 0.0-0.0 [facility] ([facility]) .~.~<DG1.3.1>Z01.812</DG1.3.1><DG1.3.1>E11.65</DG1.3.1><DG1.3.1>Z79.899</DG1.3.1 ><DG Is patient fasting? N~.~.~<DG1.3.1>Z01.812</DG1.3.1><DG1.3.1>E11.65</DG1.3.1><DG1.3.1>Z79.899</D .~.~<DG1.3.1> Z01.812</DG1.3.1><DG1.3.1>E11.65</DG1.3.1><DG1.3.1>Z79.899</DG1.3.1><DG .~.~<DG1.3.1>Z01.812</DG1.3.1><DG1.3.1>E11.65</DG1.3.1><DG1.3.1>Z79.899</DG1.3.1 ><DG Baso 0.5 % 0.0-2.5 [facility] ([facility]) .~.~<DG1.3.1>Z01.812</DG1.3.1><DG1.3.1>E11.65</DG1.3.1><DG1.3.1>Z79.899</DG1.3.1 ><DG Is patient fasting? N~.~.~<DG1.3.1>Z01.812</DG1.3.1><DG1.3.1>E11.65</DG1.3.1><DG1.3.1>Z79.899</D .~.~<DG1.3.1> Z01.812</DG1.3.1><DG1.3.1>E11.65</DG1.3.1><DG1.3.1>Z79.899</DG1.3.1><DG .~.~<DG1.3.1>Z01.812</DG1.3.1><DG1.3.1>E11.65</DG1.3.1><DG1.3.1>Z79.899</DG1.3.1 ><DG #Lymph 2.21 10^3/uL 0.60-3.40 [facility] ([facility]) .~.~<DG1.3.1>Z01.812</DG1.3.1><DG1.3.1>E11.65</DG1.3.1><DG1.3.1>Z79.899</DG1.3.1 ><DG Is patient fasting? N~.~.~<DG1.3.1>Z01.812</DG1.3.1><DG1.3.1>E11.65</DG1.3.1><DG1.3.1>Z79.899</D .~.~<DG1.3.1> Z01.812</DG1.3.1><DG1.3.1>E11.65</DG1.3.1><DG1.3.1>Z79.899</DG1.3.1><DG .~.~<DG1.3.1>Z01.812</DG1.3.1><DG1.3.1>E11.65</DG1.3.1><DG1.3.1>Z79.899</DG1.3.1 ><DG #Neut 7.09 10^3/uL 2.00-6.90 Above high normal [facility] ([facility]) .~.~<DG1.3.1>Z01.812</DG1.3.1><DG1.3.1>E11.65</DG1.3.1><DG1.3.1>Z79.899</DG1.3.1 ><DG Is patient fasting? N~.~.~<DG1.3.1>Z01.812</DG1.3.1><DG1.3.1>E11.65</DG1.3.1><DG1.3.1>Z79.899</D .~.~<DG1.3.1> Z01.812</DG1.3.1><DG1.3.1>E11.65</DG1.3.1><DG1.3.1>Z79.899</DG1.3.1><DG .~.~<DG1.3.1>Z01.812</DG1.3.1><DG1.3.1>E11.65</DG1.3.1><DG1.3.1>Z79.899</DG1.3.1 ><DG #[place] 0.66 10^3/uL 0.00-0.90 [facility] ([facility]) .~.~<DG1.3.1>Z01.812</DG1.3.1><DG1.3.1>E11.65</DG1.3.1><DG1.3.1>Z79.899</DG1.3.1 ><DG Is patient fasting? N~.~.~<DG1.3.1>Z01.812</DG1.3.1><DG1.3.1>E11.65</DG1.3.1><DG1.3.1>Z79.899</D .~.~<DG1.3.1> Z01.812</DG1.3.1><DG1.3.1>E11.65</DG1.3.1><DG1.3.1>Z79.899</DG1.3.1><DG .~.~<DG1.3.1>Z01.812</DG1.3.1><DG1.3.1>E11.65</DG1.3.1><DG1.3.1>Z79.899</DG1.3.1 ><DG #Eos 0.55 10^3/uL 0.00-0.70 [facility]) .~.~<DG1.3.1>Z01.812</DG1.3.1><DG1.3.1>E11.65</DG1.3.1><DG1.3.1>Z79.899</DG1.3.1 ><DG Is patient fasting? N~.~.~<DG1.3.1>Z01.812</DG1.3.1><DG1.3.1>E11.65</DG1.3.1><DG1.3.1>Z79.899</D .~.~<DG1.3.1> Z01.812</DG1.3.1><DG1.3.1>E11.65</DG1.3.1><DG1.3.1>Z79.899</DG1.3.1><DG .~.~<DG1.3.1>Z01.812</DG1.3.1><DG1.3.1>E11.65</DG1.3.1><DG1.3.1>Z79.899</DG1.3.1 ><DG #Baso 0.05 10^3/uL 0.00-0.20 [facility] ([facility]) .~.~<DG1.3.1>Z01.812</DG1.3.1><DG1.3.1>E11.65</DG1.3.1><DG1.3.1>Z79.899</DG1.3.1 ><DG Is patient fasting? N~.~.~<DG1.3.1>Z01.812</DG1.3.1><DG1.3.1>E11.65</DG1.3.1><DG1.3.1>Z79.899</D .~.~<DG1.3.1> Z01.812</DG1.3.1><DG1.3.1>E11.65</DG1.3.1><DG1.3.1>Z79.899</DG1.3.1><DG .~.~<DG1.3.1>Z01.812</DG1.3.1><DG1.3.1>E11.65</DG1.3.1><DG1.3.1>Z79.899</DG1.3.1 ><DG #NRBC 0.00 10^3/uL 0.00-0.00 [facility] ([facility]) .~.~<DG1.3.1>Z01.812</DG1.3.1><DG1.3.1>E11.65</DG1.3.1><DG1.3.1>Z79.899</DG1.3.1 ><DG Is patient fasting? N~.~.~<DG1.3.1>Z01.812</DG1.3.1><DG1.3.1>E11.65</DG1.3.1><DG1.3.1>Z79.899</D .~.~<DG1.3.1> Z01.812</DG1.3.1><DG1.3.1>E11.65</DG1.3.1><DG1.3.1>Z79.899</DG1.3.1><DG .~.~<DG1.3.1>Z01.812</DG1.3.1><DG1.3.1>E11.65</DG1.3.1><DG1.3.1>Z79.899</DG1.3.1 ><DG #Ig 0.03 10^3/uL 0.00-0.10 [facility] ([facility]) .~.~<DG1.3.1>Z01.812</DG1.3.1><DG1.3.1>E11.65</DG1.3.1><DG1.3.1>Z79.899</DG1.3.1 ><DG Is patient fasting? N~.~.~<DG1.3.1>Z01.812</DG1.3.1><DG1.3.1>E11.65</DG1.3.1><DG1.3.1>Z79.899</D .~.~<DG1.3.1> Z01.812</DG1.3.1><DG1.3.1>E11.65</DG1.3.1><DG1.3.1>Z79.899</DG1.3.1><DG .~.~<DG1.3.1>Z01.812</DG1.3.1><DG1.3.1>E11.65</DG1.3.1><DG1.3.1>Z79.899</DG1.3.1 ><DG Manual Diff Laboratory test result M EDSANDRA ([facility]) .~.~<DG1.3.1>Z01.812</DG1.3.1><DG1.3.1>E11.65</DG1.3.1><DG1.3.1>Z79.899</DG1.3.1 ><DG Is patient fasting? N~.~.~<DG1.3.1>Z01.812</DG1.3.1><DG1.3.1>E11.65</DG1.3.1><DG1.3.1>Z79.899</D .~.~<DG1.3.1> Z01.812</DG1.3.1><DG1.3.1>E11.65</DG1.3.1><DG1.3.1>Z79.899</DG1.3.1><DG .~.~<DG1.3.1>Z01.812</DG1.3.1><DG1.3.1>E11.65</DG1.3.1><DG1.3.1>Z79.899</DG1.3.1 ><DG RBC Morph Laboratory test result [facility] ([facility]) .~.~<DG1.3.1>Z01.812</DG1.3.1><DG1.3.1>E11.65</DG1.3.1><DG1.3.1>Z79.899</DG1.3.1 ><DG Is patient fasting? N~.~.~<DG1.3.1>Z01.812</DG1.3.1><DG1.3.1>E11.65</DG1.3.1><DG1.3.1>Z79.899</D .~.~<DG1.3.1> Z01.812</DG1.3.1><DG1.3.1>E11.65</DG1.3.1><DG1.3.1>Z79.899</DG1.3.1><DG .~.~<DG1.3.1>Z01.812</DG1.3.1><DG1.3.1>E11.65</DG1.3.1><DG1.3.1>Z79.899</DG1.3.1 ><DG ID Date Data Source [id number] 06/10/2019 05:51:00 PM EST [facility] Name Value Range Interpretation Code Description Data Maria [facility] rce(s) Supporting Document(s) Hemoglobin A1c/Hemoglobin.total in Blood 11.0 % 4.4 - 6.1 H [facility] {A1]{HB] ID Date Data Source [id number] 06/10/2019 05:34:00 PM EST [facility] Name Value Range Interpretation Code Description Data [facility](s) Supporting Document(s) CBC W/AUTOMATED DIFF [facility] COMPLETE BLOOD COUNT Leukocytes [#/volume] in Blood by Automated count 10.6 10^3/uL 4.2 - 11.0 [facility] Erythrocytes [#/volume] in Blood by Automated count 4.87 10^6/uL 4. 20 - 5.40 [facility] Hemoglobin [Mass/volume] in Blood 14.2 g/dL 12.0 - 16.0 [facility] Hematocrit [Volume Fraction] of Blood by Automated count 43.7 % 3 7.0 - 47.0 [facility] Erythrocyte mean corpuscular volume [Entitic volume] by Auto mated count 89.7 fL 81.0 - 101 [facility] Erythrocyte mean corpuscular hemoglobin [Entitic mass] by Automated count 29.2 pg 27.0 - 34.0 [facility] Erythrocyte mean corpuscular hemoglobin concentration [Mass/volume] by Automated count 32.5 g/dL 31.0 - 36.0 [facility] Erythrocyte distribution width [Ratio] by Automated count 12.2 % 11.5 - 14.5 [facility] Platelets [#/volume] in Blood by Automated count 278 10^3/uL 150 - 45 0 [facility] Platelet mean volume [Entitic volume] in Blood by Automated count 10.7 fL 7.4 - 10.4 H [facility] Neutrophils/100 leukocytes in Blood by Automated count 66.9 % 37. 0 - 80.0 [facility] Lymphocytes/100 leukocytes in Blood by Manual count 20.9 % 25.0 - 40.0 L [facility] Monocytes/100 leukocytes in Blood by Automated count 6.2 % 3.0 - 8.0 [facility] Eosinophils/100 leukocytes in Blood by Automated count 5.2 % 0.0 - 7.0 [facility] Basophils/100 leukocytes in Blood by Automated count 0.5 % 0.0 - 2.5 [facility] %IG 0.3 % 0.0 - 0.0 H [facility] %NRBC 0.0 % 0.0 - 0.0 [facility] Neutrophils [#/volume] in Blood by Automated count 7.09 10^3/uL 2.00 - 6.90 H [facility] Lymphocytes [#/volume] in Blood by Automated count 2.21 10^3/uL 0.60 - 3.40 [facility] Monocytes [#/volume] in Blood by Automated count 0.66 10^3/uL 0.00 - 0.90 [facility] Eosinophils [#/volume] in Blood by Automated count 0.55 10^3/uL 0.00 - 0.70 [facility] Basophils [#/volume] in Blood by Automated count 0.05 10^3/uL 0.00 - 0.20 [facility] #IG 0.03 10^3/uL 0.00 - 0.10 [facility] #NRBC 0.00 10^3/uL 0.00 - 0.00 [facility] MANUAL DIFF NOT INDICATED [facility] { SICKLE CELL (NORMAL: NONE SEEN ) COMMENT: _NO_PLATELET_CLUMPING_SEEN 06/10/19.GA . . . ____ ID Date Data Source [id number] 06/10/2019 05:26:00 PM EST [facility] Name Value Range Interpretation Code Description Data Maria M rce(s) Supporting Document(s) COMPREHENSIVE METABOLIC PANEL [facility] COMPREHENSIVE METABOLIC PANEL Sodium [Moles/volume] in Serum or Plasma 140 mEq/L 134 - 153 [facility] Potassium [Moles/volume] in Serum or Plasma 4.3 mEq/L 3.6 - 5.0 [facility] Chloride [Moles/volume] in Serum or Plasma 99 mEq/L 98 - 107 [facility] Carbon dioxide, total [Moles/volume] in Serum or Plasma 26 MEQ/L 22 - 30 [facility] Glucose [Mass/volume] in Serum or Plasma 293 MG/DL 65 - 110 H [facility] BUN 16 MG/DL 7 - 21 [facility] al Creatinine [Mass/volume] in Serum or Plasma 0.8 MG/DL 0.7 - 1.5 [facility] BUN/CREAT 20 8 - 27 [facility] Protein [Mass/volume] in Serum or Plasma 7.3 G/DL 6.3 - 8.2 [facility] Albumin [Mass/volume] in Serum or Plasma 4.4 G/DL 3.9 - 5.0 [facility] Globulin [Mass/volume] in Serum by calculation 2.9 GM/DL 2.4 - 3.2 [facility] A/G RATIO 1.5 0.8 - 2.0 [facility] Calcium [Mass/volume] in Serum or Plasma 9.7 MG/DL 8.4 - 10.2 [facility] Bilirubin.total [Mass/volume] in Serum or Plasma 0.7 MG/DL 0.2 - 1.3 [facility] Alkaline phosphatase [Enzymatic activity/volume] in Serum or Plasma 52 U/L 38 - 126 [facility] Aspartate aminotransferase [Enzymatic activity/volume] in Serum or Plasma 21 U/L 5 - 40 [facility] Alanine aminotransferase [Enzymatic activity/volume] in Seru m or Plasma 18 U/L 7 - 56 [facility] Anion gap 3 in Serum or Plasma 15.0 mmol/L 8.0 - 16.0 [facility] AGE 68 yrs [facility] NON-AA GFR >60 mL/min [facility] AFR AMER GFR >60 [facility] Male GFR In terprentation 20-49 yrs >60 mL/min Normal 50-59 yrs >56 mL/min Normal 60-69 yrs >49 mL/min Normal 70-79yrs >42 mL/min Normal 80 and above >35 mL/min Normal Female GFR Interpretation 20-39 yrs >60 mL/min Normal 40-49 yrs >58 mL/min Normal 50-59 yrs >51 mL/min Normal 60-69 yrs >45 mL/min Normal 70-79 yrs >39 mL/min Normal 80 and above >32 mL/min Normal ID Date Data Source [id number] 06/10/2019 05:11:00 PM EST [facility] Name Value Range Interpretation Code Description Data Maria M rce(s) Supporting Document(s) Prothrombin time (PT) 13.2 SECONDS 11.0 - 15.5 [facility] INR in Platelet poor plasma by Coagulation assay 0.99 0.93 - 1. 23 [facility] aPTT in Blood by Coagulation assay 33.3 SECONDS 24.8 - 36.7 [facility] \\BLDo\\INR INTERPRETATION\\BLDx\\ Therapeutic range for Coumadin and related oral anticoagulants. - International Normalized Ratio (INR): 2.0 - 3.0 for Venous Thrombosis, Pulmonary Embolus, Tissue heart valves, Acute UT Atrial Fibrillation, Valvular heart disease and recurrent Systemic Embolism. - International Normalized Ratio (INR): 2.5 - 3.5 for Mechanical Prosthetic valve. \\BLDo\\PTT INTERPRETATION\\BLDx\\ Critical results for patients not on therapy: >50 seconds Critical results for patients on therapy: >119 seconds Therapeutic range for patients on therapy: 58 - 90 seconds Coag lashell dies from line draws may not be accurate due to Heparin and other interferences. Procedure Social History Code Duration Value Status Description Data Source(s ) Smoking 12/01/2019 12:00:00 AM EDT Never Smoked A Pipe complet ed Never Smoked A Pipe [facility] ([facility]) Vital Signs ID Date Data Source UNK Name Value Range Interpretation Code Description Data Source(s) Heart rate 96 /min 96 /min [facility] ([facility] Diastolic blood pressure 68 mm[Hg] 68 mm[Hg] [facility] ([facility] Systolic blood pressure 114 mm[Hg] 114 mm[Hg] M [facility] ([facility] Body weight 177.38 [lb_av] 177.38 [lb_av] [facility] T ([facility] Body temperature 96.8 [degF] 96.8 [degF] [facility] ([facility]) Body surface area Derived from formula 1.77 m2 1.77 m2 [facility] ([facility]) Body mass index (BMI) [Ratio] 34.6 kg/m2 34.6 k g/m2 [facility] ([facility]) Body height 60 [in_i] 60 [in_i] [facility] ([facility]) 5'0" Body weight 80.457 kg 80.457 kg [facility] ([facility]) Body weight 177.38 [lb_av] 177.38 [lb_av] [facility] T ([facility]) Oxygen saturation in Arterial blood by Pulse oximetry 96 % 96 % [facility] 18 /min 18 /[facility] Body temperature 97.0 [degF] 97.0 [degF] [facility] ([facility]) Heart rate 96 /min 96 /min [facility] Diastolic blood pressure 68 mm[Hg] 68 mm[Hg] [facility] Systolic blood pressure 114 mm[Hg] 114 mm[Hg] M [facility] ([facility]) Body surface area Derived from formula 1.79 m2 1.79 m2 [facility] ([facility]) Body mass index (BMI) [Ratio] 35.4 kg/m2 35.4 k g/m2 [facility] ([facility]) Body height 60 [in_i] 60 [in_i] [facility] ([facility]) 5'0" Body weight 82.158 kg 82.158 kg [facility] ([facility]) Body weight 181.12 [lb_av] 181.12 [lb_av] [facility] [facility]) Oxygen saturation in Arterial blood by Pulse oximetry 98 % 98 % [facility] ([facility]) Respiratory rate 18 /min 18 /min [facility] ( [facility]) Body temperature 97.2 [degF] 97.2 [degF] [facility] ([facility]) Heart rate 92 /min 92 /min [facility] ([facility]) Diastolic blood pressure 72 mm[Hg] 72 mm[Hg] [facility] ([facility]) Systolic blood pressure 120 mm[Hg] 120 mm[Hg] M [facility] ([facility]) Body surface area 1.79 m2 1.79 m2 [facility] ([facility]) Body surface area 1.85 m2 1.85 m2 [facility] ([facility]) Body mass index (BMI) [Ratio] 38.1 kg/m2 38.1 k g/m2 [facility] ([facility]) Body height 60 [in_i] 60 [in_i] [facility] ([facility]) 5'0" Body weight 88.452 kg 88.452 kg [facility] ([facility]) Body weight 195.00 [lb_av] 195.00 [lb_av] [facility] ([facility]) Oxygen saturation in Arterial blood by Pulse oximetry 97 % 97 % [facility] ([facility]) Respiratory rate 18 /min 18 /min [facility] ( [facility]) Body temperature 98.7 [degF] 98.7 [degF] [facility] ([facility]) Heart rate 90 /min 90 /min [facility] ([facility]) Diastolic blood pressure 72 mm[Hg] 72 mm[Hg] [facility] ([facility]) Systolic blood pressure 120 mm[Hg] 120 mm[Hg] [facility]) Systolic blood pressure 140 mm[Hg] 140 mm[Hg] [facility]) Body surface area 1.85 m2 1.85 m2 [facility] ([facility]) Body mass index (BMI) [Ratio] 38.1 kg/m2 38.1 k g/m2 [facility] ([facility]) Body height 60 [in_i] 60 [in_i] [facility] ([facility]) 5'0" Body weight 88.565 kg 88.565 kg [facility] ([facility]) Body weight 195.25 [lb_av] 195.25 [lb_av] [facility] ([facility]) Oxygen saturation in Arterial blood by Pulse oximetry 98 % 98 % [facility] ([facility]) Respiratory rate 16 /min 16 /min [facility] ( [facility]) Body temperature 97.4 [degF] 97.4 [degF] [facility] ([facility]) Heart rate 86 /min 86 /min [facility] ([facility]) Diastolic blood pressure 88 mm[Hg] 88 mm[Hg] [facility] ([facility]) Body weight 190.00 [lb_av] 190.00 [lb_av] [facility] ([facility]) Oxygen saturation in Arterial blood by Pulse oximetry 98 % 98 % [facility] ([facility]) Respiratory rate 16 /min 16 /min [facility] ( [facility]) Body temperature 98.2 [degF] 98.2 [degF] [facility] ([facility]) Heart rate 96 /min 96 /min [facility] ([facility]) Diastolic blood pressure 74 mm[Hg] 74 mm[Hg] [facility] ([facility]) Systolic blood pressure 126 mm[Hg] 126 mm[Hg] M [facility] ([facility]) Body surface area 1.83 m2 1.83 m2 [facility] ([facility]) Body mass index (BMI) [Ratio] 37.1 kg/m2 37.1 k g/m2 [facility] ([facility]) Body height 60 [in_i] 60 [in_i] [facility] ([facility]) 5'0" Body weight 86.184 kg 86.184 kg [facility] ([facility]) Body temperature 98.2 [degF] 98.2 [degF] [facility] ([facility] ) Body surface area 1.83 m2 1.83 m2 [facility] ([facility]) Body mass index (BMI) [Ratio] 37.3 kg/m2 37.3 k g/m2 [facility] ([facility]) Body height 60 [in_i] 60 [in_i] [facility] ([facility]) 5'0" Body weight 86.638 kg 86.638 kg [facility] ([facility]) Body weight 191.00 [lb_av] 191.00 [lb_av] [facility] ([facility]) Oxygen saturation in Arterial blood by Pulse oximetry 98 % 98 % [facility] ([facility]) Respiratory rate 18 /min 18 /min [facility] ( [facility]) Body temperature 98.1 [degF] 98.1 [degF] [facility] ([facility]) Heart rate 94 /min 94 /min [facility] ([facility]) Diastolic blood pressure 70 mm[Hg] 70 mm[Hg] [facility] ([facility]) Systolic blood pressure 128 mm[Hg] 128 mm[Hg] M [facility] ([facility])
[2020-06-30] MEDS ORDERED: IBUP80TA PO (00:43)
[2020-06-30] MEDS ORDERED: FURO40TA2 PO (00:43)
[2020-06-30] MEDS ORDERED: FENO145T7 PO (00:43)
[2020-06-30] MEDS ORDERED: FAMO20TA PO (00:43)
[2020-06-30] MEDS ORDERED: ACETAMINOPHEN 500 MG TAB PO ONE (01:30)
[2020-06-30 02:13] LABS: BASO % 0.3 % (0.0-1.0); EOS # 0.5 10^3/uL (0.0-0.5); EOS % 5.4 % (0.0-3.0); HEMATOCRIT 38.2 % (36.0-47.0); HEMOGLOBIN 12.6 g/dl (12.0-15.5); LYMPH # 2.8 10^3/uL (1.5-5.0); LYMPH % 30.5 % (24.0-44.0); MEAN CORPUSCULAR HEMOGLOBIN 28.8 pg (27.0-33.0); MEAN CORPUSCULAR VOLUME 87.2 fl (80.0-96.0); MONO # 0.8 10^3/uL (0.0-0.8); MONO % 8.4 % (0.0-5.0); NEUTROPHILS # 5.1 10^3/uL (1.5-8.5); NEUTROPHILS % 55.1 % (36.0-66.0); PLATELET COUNT, AUTOMATED 311 10^3/uL (150-450); RED BLOOD COUNT 4.38 10^6/uL (4.00-5.40); WHITE BLOOD COUNT 9.2 10^3/uL (4.0-10.0)
--- NOTE | 2020-06-30 02:18 | REPVR ---
PROCEDURE INFORMATION: Exam: CT Lumbar Spine Without Contrast Exam date and time: 06/30/2020 1:24 AM Age: 69 years old Clinical indication: Low back pain; Additional info: Low back pain radiating to lle TECHNIQUE: Imaging protocol: Computed tomography images of the lumbar spine without contrast. Radiation optimization: All CT scans at this facility use at least one of these dose optimization techniques: automated exposure control; mA and/or kV adjustment per patient size (includes targeted exams where dose is matched to clinical indication); or iterative reconstruction. COMPARISON: CR Spine. Lumbosacral, complete 05/21/2018 9:38 AM FINDINGS: Vertebrae: No acute fracture. Normal alignment. Discs/Spinal canal/Neural foramina: Advanced discogenic degenerative changes throughout the lumbar spine. There are large calcified posterior disc protrusions causing severe spinal stenosis at L3-L4 and L4-L5, worse at L4-L5. Advanced facet degenerative changes with multilevel neural foraminal stenosis, worst at L4-L5 and L5-S1. Sacrum/coccyx: Mild SI joint DJD. Soft tissues: Unremarkable. IMPRESSION: 1. Advanced degenerative spondylosis with large posterior disc protrusions causing severe spinal stenosis at L3-L4 and L4-L5. 2. Multilevel neural foraminal stenosis. 3. No fracture or malalignment. Electronically signed by: Tim Stover On 06/30/2020 02:18:23 AM
--- NOTE | 2020-06-30 02:18 | REPVR ---
PROCEDURE INFORMATION: Exam: US Duplex Left Lower Extremity Veins, Limited Exam date and time: 06/30/2020 1:52 AM Age: 69 years old Clinical indication: Pain; Leg, lower; Left; Additional info: Lle pain, R/O dvt TECHNIQUE: Imaging protocol: Real-time Duplex ultrasound of the Left Lower Extremity with 2-D sahni scale, color Doppler flow and spectral waveform analysis with image documentation. Limited exam focused on the left lower extremity veins. COMPARISON: No relevant prior studies available. FINDINGS: Left deep veins: Unremarkable. The common femoral, femoral, proximal profunda femoral and popliteal veins are patent without thrombus. Normal Doppler waveforms. Normal compressibility and/or augmentation response. Left superficial veins: Unremarkable. Saphenofemoral junction is patent without thrombus. Soft tissues: Unremarkable. IMPRESSION: No evidence of deep vein thrombosis. Electronically signed by: Tim Stover On 06/30/2020 02:18:44 AM
[2020-06-30 02:35] LABS: INR 0.98; PROTHROMBIN TIME 13.2 SECONDS (12.5-14.3)
[2020-06-30 02:36] LABS: PARTIAL THROMBOPLASTIN TIME 30.9 SECONDS (24.2-38.5)
[2020-06-30 02:58] LABS: CALCIUM LEVEL 8.7 MG/DL (8.8-10.2); CREATININE FOR GFR 1.31 MG/DL (0.55-1.30); POTASSIUM SERUM 4.1 MEQ/L (3.5-5.1)
[2020-06-30] MEDS ORDERED: METHOCARBAMOL 1,000 MG/10 ML VIAL (J2800) IV ONE (03:00)
--- OUTSIDE RECORDS SUMMARY | 2020-06-30 03:23 | CCD ---
Author Author [facility] Organization [facility] Address Unknown Phone Unavailable Care Team Providers Care Transcribing Operator Head Name Role Phone Ynes LAZO DPM Unavailable [...] Unavailable Unavailable RENETTA CRUZ MD Unavailable Unavailable REENTTA CRUZ MD Unavailable Unavailable RENETTA CRUZ MD Unavailable Unavailable RENETTA CRUZ MD Unavailable Unavailable RENETTA CRUZ MD Unavailable Unavailable RENETTA CRUZ MD Unavailable Unavailable RENETTA CRUZ MD Unavailable Unavailable RENETTA CRUZ MD Unavailable Unavailable RENETTA CRUZ MD Unavailable Unavailable RENETTA CRUZ MD Unavailable Unavailable RENETTA CRUZ MD Unavailable Unavailable RENETTA CRUZ MD Unavailable Unavailable RENETAT CRUZ MD Unavailable Unavailable RENETTA CRUZ MD [...] is protected by Article 27-F of the [facility] Public Health law. If you continue you may have access to information: Regarding HIV / AIDS; Provided by facilities licensed or operated by the [facility] Office of Mental Health; or Provided by the [facility] Office for People With Developmental Disabilities. If such information is present, then the following [facility] mandated warning applies: This information has [...] law may result in a fine or retirement sentence or both. A general authorization for the release of medical or other information is NOT sufficient authorization for further disc losure. Family History Family Member Name Family Member Gender Family Member Status Date o f Status Description Data Source(s) Unknown Male Problem [facility] ([facility] Encounters Encounter Providers Location Date Indications Data Source(s ) [facility]00 PM EST [facility] Outpatient Attender: Angie URBAN 03/21 01:50:00 PM EST - 04/11/2020 01:50:00 PM EST [facility] Outpatient Attender: Angie URBAN Family Practice 03/21 12:40:00 PM EST [facility] ([facility] Outpatient Attender: RENETTA CRUZ MD Physical Therapy 09:00:00 AM EDT [facility] ([facility]) Outpatient Attender: Angie URBAN 12/19 01:48:00 PM EDT - 01/07/2020 01:48:00 PM EDT [facility] Outpatient Attender: RENETTA CRUZ MD Physical Therapy 03:30:00 PM EDT [facility] ([facility]) Outpatient Attender: KAREL LOPEZ DPM PC 12/01/2019 03:48:00 PM EDT - 12/01/2019 03:48:00 PM EDT [facility] Outpatient Attender: Angie URBAN 09/18 01:32:00 PM EDT - 10/07/2019 01:32:00 PM EDT [facility] Outpatient Attender: RENETTA CRUZ MD Physical Therapy 02:30:00 PM EDT [facility] ([facility]) Outpatient Attender: Angie URBAN 08/19 01:29:00 PM EDT - 09/16/2019 01:29:00 PM EDT [facility] Outpatient Attender: Wei Salazar MD FP 2019 08:01:07 PM EDT [facility] Outpatient Referrer: RENETTA CRUZ MD [...] 10:56:00 AM EST - 07/02/2019 10:56:00 AM [facility] Outpatient Attender: Angie URBAN Family Practice 06/20 09:40:00 AM EST [facility] ([facility] Outpatient Referrer: Lola MUNOZ 06/30/2019 01:30:00 PM EST [facility] Outpatient Attender: Angie URBAN 05/21 10:54:00 AM EST - 06/17/2019 10:54:00 AM [facility] Outpatient Attender: Angie URBAN 05/21 01:50:00 PM EST - 06/09/2019 01:50:00 PM [facility] Outpatient Attender: Angie URBAN Family Practice 05/21 12:40:00 PM EST [facility] ([facility] Outpatient Attender: Wei Salazar MD 05/29/2019 08:01:01 PM EST [facility] Medications Medication Brand Name Start Date Product Form Dose Route Admi nistrative Instructions Pharmacy Instructions Status Indications Reaction Description Data Source(s) pioglitazone 30 MG Oral Tablet Pioglitazone HCL 01/14/2020 12:00:00 A M EDT ORAL active [facility] ([facility]) Potassium Chloride 20 MEQ Extended Release Oral Tablet Potas sium Chloride ER 01/13/2020 12:00:00 AM EDT ORAL active [facility] ([facility]) Fenofibrate 145 MG Oral Tablet Fenofibrate 01/07/2020 12:00:00 AM EDT ORAL active [facility] ([facility]) Linagliptin 5 MG Oral Tablet [Tradjenta] Tradjenta 01/07/2020 12 :00:00 AM EDT ORAL completed [facility] ([facility]) Clotrimazole 10 MG/ML Topical Cream Clotrimazole Anti-Fungal 10/07/2019 12:00:00 AM EDT active [facility] ([facility]) Furosemide 40 MG Oral Tablet Furosemide 09/16/2019 12:00:00 AM EDT ORAL active [facility] ([facility]) Ibuprofen 800 MG Oral Tablet Ibuprofen 07/28/2019 12:00:00 AM EDT ORAL active [facility] ([facility]) Onetouch Ultra 2 06/29/2019 12:00:00 AM EST a ctive [facility] ([facility]) Blood Glucose Test 06/24/2019 12:00:00 AM EST active [facility] ([facility]) Lancets 06/24/2019 12:00:00 AM EST active [facility] ([facility]) Basaglar Kwikpen Basaglar Kwikpen 06/16/2019 12:00:00 AM EST completed [facility] ([facility]) 3 ML Insulin Glargine 100 UNT/ML Pen Injector [Lantus] Lantu s Solostar 06/16/2019 12:00:00 AM EST completed [facility] ([facility]) Morphine Sulfate 15 MG Extended Release Oral Tablet Morphine Sulfate ER 06/15/2019 12:00:00 AM EST ORAL active [facility] ([facility] Oxycodone Hydrochloride 15 MG Oral Tablet Oxycodone HCL 06/15/2019 12:00:00 AM EST ORAL active [facility] ([facility] Ibuprofen 600 MG Oral Tablet Ibuprofen 06/15/2019 12:00:00 AM EST ORAL active [facility] ([facility]) sitagliptin 100 MG Oral Tablet [Januvia] Januvia 06/09/2019 12:00: 00 AM EST ORAL active [facility] ([facility]) Famotidine 20 MG Oral Tablet Famotidine 06/09/2019 12:00:00 AM EST ORAL active [facility] ([facility]) Insurance Providers Payer name Policy type / Coverage type Policy ID Covered libertarian ID Covered libertarian's relationship to martinez Policy Martinez Plan Information WELLCARE [id number] SP [id number] MEDICARE COMPLETE [id number] SP [id number] WELLCARE O [id number] S [id number] MEDICARE COMPLETE-UHC O [id number] S [id number] [place] [id number] 18 [id number] [place]HC [place] [id number] 18 [id number] Unitedhealthcare Secure Horizons P [id number] S [id number] Medicare Wrap S [id number] S [id number] UNITED HEALTHCARE O [id number] S [id number] MEDICARE C [id number] S [id number] A MEDICARE COMPLETE [id number] SP [id number] MEDICARE COMPLETE-UHC O [id number] S [id number] [place] [id number] 18 [id number] United Healthcare (Medicare) Commercial [id number] Self [id number] MEDICARE COMPLETE [id number] SP [id number] MEDICARE COMPLETE [id number] SP [id number] SELF PAY UNAVAILABLE SP UNAVAILA BLE [employer] Commercial [id number] Self [id number] Unitedhealthcare Secure Horizons P [id number] S [id number] MEDICARE COMPLETE [id number] SP [id number] MEDICARE COMPLETE-UHC O [id number] S [id number] United Healthcare (Medicare) Commercial Self Medicare S [id number] S [id number] A UNITED HEALTHCARE O [id number] S [id number] Unitedhealthcare Secure Horizons P [id number] S [id number] Unitedhealthcare Secure Horizons S [id number] S [id number] Self Pay S [id number] S [id number] Medicare O UNAVAILABLE O UNAVAILA BLE Sliding Fee Scale O [id number] S [id number] MEDICARE [id number] SP [id number] A Problems, Conditions, and Diagnoses Code Display Name Description Problem Type Effective Dates Data Source(s) 404937046 Taking medication Taking medication Problem 01/06 12:00:00 AM EDT [facility] ([facility]) [id number] Disorder of bursa of shoulder region Dis order of bursa of shoulder region Problem 01/07/2020 12:00:00 AM EDT [facility] ([facility]) [id number] Shoulder joint pain Shoulder joint pain Problem 0 01/07/2020 12:00:00 AM EDT [facility] ([facility]) [id number] Essential hypertension Essential hypertension Problem 01/07/2020 12:00:00 AM EDT [facility] ([facility]) [id number] Type II diabetes mellitus uncontrolled T ype II diabetes mellitus uncontrolled Problem 01/07/2020 12:00:00 AM EDT [facility] ([facility]) [id number] Onychomycosis Onychomycosis Problem 01/07/2020 12:00:00 AM EDT [facility] ([facility]) Corns and callosities Corns and callosities Problem 12/01/2019 12:00:00 AM EDT [facility] ([facility]) 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 Problem 12/01/2019 12:00:00 AM EDT [facility] ([facility]) 35866510 Pain in limb Pain in limb Problem 12/01/2019 12:00:00 A M EDT [facility] ([facility]) 61088174 Dystrophia unguium Dystrophia unguium Problem 12:00:00 AM EDT [facility] ([facility]) [id number] Ingrowing nail Ingrowing nail Problem 12/01/2019 12:00: 00 AM EDT [facility] ([facility]) [id number] Pure hypercholesterolemia Pure hypercholesterolemia Pr oblem 07/30/2019 12:00:00 AM EDT [facility] ([facility] L600 Ingrowing nail Ingrowing nail Diagnosis 12/01/2019 03:48: 00 PM EDT [facility] [id number] Pain in left foot Pain in left foot Diagnosis 12/01/2019 03:48:00 PM EDT [facility] L84 Corns and callosities Corns and callosities Diagnosis 12/01/2019 03:48:00 PM EDT [facility] L603 Nail dystrophy Nail dystrophy Diagnosis 12/01/2019 03:48: 00 PM EDT [facility] E1149 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 Diagnosis 12/01/2019 03:48:00 PM EDT [facility] G33814 Pain in right shoulder Pain in right shoulder Diagnosi s 09/16/2019 01:29:00 PM EDT [facility] I10 Essential (primary) hypertension Essential (primary) h ypertension Diagnosis 09/16/2019 01:29:00 PM EDT [facility] E1165 Type 2 diabetes mellitus with hyperglyce jeanine Type 2 diabetes mellitus with hyperglycemia Diagnosis [facility] Ill-defined and unknown cause of mortali ty Ill-defined and unknown cause of mortality Diagnosis 06/17/2019 10:54:00 AM [facility] [id number] Other termination clerk (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 O ther residential (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 Diagnosis 06/09/2019 01:50:00 PM [facility] [id number] Encounter for other preprocedural examin ation Encounter for other preprocedural examination Diagnosis 06/09/2019 01:50:00 PM [facility] [id number] Unspecified rotator cuff tea r or rupture of right shoulder, not specified as traumatic Unspecified rotator cuff tear or rupture of right shoulder, not specified as traumatic Diagnosis 06/09/2019 01:50:00 PM [facility] Surgeries/Procedures Procedure Description Date Indications Data Source(s) PARING/CUTTING BENIGN HYPERKERATOTIC LESION 1 06/02/19 12:00:00 AM EST [facility] DEBRIDEMENT NAIL ANY METHOD 06/02/2020 12:00:00 AM EST [facility] ([facility] RADEX SHOULDER COMPLETE MINIMUM 2 VIEWS 05/23/2020 12: 00:00 AM EST [facility] ([facility] THERAPEUTIC PX 1/> AREAS EACH 15 MIN EXERCISES 12:00:00 AM EDT [facility] ([facility] THERAPEUTIC PX 1/> AREAS EACH 15 MIN EXERCISES 12:00:00 AM EDT [facility] ([facility] THERAPEUTIC PX 1/> AREAS EACH 15 MIN EXERCISES 12:00:00 AM EDT [facility] ([facility] THERAPEUTIC PX 1/> AREAS EACH 15 MIN EXERCISES 12:00:00 AM EDT [facility] ([facility] THERAPEUTIC PX 1/> AREAS EACH 15 MIN EXERCISES 12:00:00 AM EDT [facility] ([facility] THERAPEUTIC PX 1/> AREAS EACH 15 MIN EXERCISES 12:00:00 AM EDT [facility] ([facility] THERAPEUTIC PX 1/> AREAS EACH 15 MIN EXERCISES 12:00:00 AM EDT [facility] ([facility] ) THERAPEUTIC PX 1/> AREAS EACH 15 MIN EXERCISES 12:00:00 AM EDT [facility] ([facility]) Pare Hyperkeratotic Lesion, 2-4 12/01/2019 12:00:00 AM EDT [facility] ([facility]) THERAPEUTIC PX 1/> AREAS EACH 15 MIN EXERCISES 12:00:00 AM EDT [facility] ([facility] THERAPEUTIC PX 1/> AREAS EACH 15 MIN EXERCISES 12:00:00 AM EDT [facility] ([facility] ) THERAPEUTIC PX 1/> AREAS EACH 15 MIN EXERCISES 12:00:00 AM EDT [facility] ([facility] ) THERAPEUTIC PX 1/> AREAS EACH 15 MIN EXERCISES 12:00:00 AM EDT [facility] ([facility] ) THERAPEUTIC PX 1/> AREAS EACH 15 MIN EXERCISES 12:00:00 AM EDT [facility] ([facility] ) THERAPEUTIC PX 1/> AREAS EACH 15 MIN EXERCISES 12:00:00 AM EDT [facility] ([facility] ) THERAPEUTIC PX 1/> AREAS EACH 15 MIN EXERCISES 12:00:00 AM EDT [facility] ([facility]) THERAPEUTIC PX 1/> AREAS EACH 15 MIN EXERCISES 12:00:00 AM EDT [facility] ([facility]) THERAPEUTIC PX 1/> AREAS EACH 15 MIN EXERCISES 12:00:00 AM EDT [facility] ([facility] ) THERAPEUTIC PX 1/> AREAS EACH 15 MIN EXERCISES 12:00:00 AM EDT [facility] ([facility] ) MANUAL THERAPY TQS 1/> REGIONS EACH 15 MINUTES 12:00:00 AM EDT [facility] ([facility] ) THERAPEUTIC PX 1/> AREAS EACH 15 MIN EXERCISES 12:00:00 AM EDT [facility] ([facility]) THERAPEUTIC PX 1/> AREAS EACH 15 MIN EXERCISES 12:00:00 AM EDT [facility] ([facility] ) MANUAL THERAPY TQS 1/> REGIONS EACH 15 MINUTES 12:00:00 AM EDT [facility] ([facility] ) THERAPEUTIC PX 1/> AREAS EACH 15 MIN EXERCISES 12:00:00 AM EDT [facility] ([facility] MANUAL THERAPY TQS 1/> REGIONS EACH 15 MINUTES 12:00:00 AM EDT [facility] ([facility]) [place] 10/13/2019 12:00:00 AM EDT [facility] ([facility] ) THERAPEUTIC PX 1/> AREAS EACH 15 MIN EXERCISES 12:00:00 AM EDT [facility] ([facility]) [place] 10/08/2019 12:00:00 AM EDT [facility] ([facility] ) THERAPEUTIC PX 1/> AREAS EACH 15 MIN EXERCISES 12:00:00 AM EDT [facility] ([facility] Admin Patient Focused Health Risk Assessment Instrument 10/07/2019 12:00:00 AM EDT [facility] ([facility] THERAPEUTIC PX 1/> AREAS EACH 15 MIN EXERCISES 12:00:00 AM EDT [facility] ([facility] THERAPEUTIC PX 1/> AREAS EACH 15 MIN EXERCISES 12:00:00 AM EDT [facility] ([facility] ) THERAPEUTIC PX 1/> AREAS EACH 15 MIN EXERCISES 12:00:00 AM EDT [facility] ([facility] ) THERAPEUTIC PX 1/> AREAS EACH 15 MIN EXERCISES 12:00:00 AM EDT [facility] ([facility] ) THERAPEUTIC PX 1/> AREAS EACH 15 MIN EXERCISES 12:00:00 AM EDT [facility] ([facility] ) THERAPEUTIC PX 1/> AREAS EACH 15 MIN EXERCISES 12:00:00 AM EDT [facility] ([facility] ) THERAPEUTIC PX 1/> AREAS EACH 15 MIN EXERCISES 12:00:00 AM EDT [facility] ([facility] ) THERAPEUTIC PX 1/> AREAS EACH 15 MIN EXERCISES 12:00:00 AM EDT [facility] ([facility] ) THERAPEUTIC PX 1/> AREAS EACH 15 MIN EXERCISES 12:00:00 AM EDT [facility] ([facility] ) THERAPEUTIC PX 1/> AREAS EACH 15 MIN EXERCISES 12:00:00 AM EDT [facility] ([facility] ) THERAPEUTIC PX 1/> AREAS EACH 15 MIN EXERCISES 12:00:00 AM EDT [facility] ([facility] ) THERAPEUTIC PX 1/> AREAS EACH 15 MIN EXERCISES 12:00:00 AM EDT [facility] ([facility] ) THERAPEUTIC PX 1/> AREAS EACH 15 MIN EXERCISES 12:00:00 AM EDT [facility] ([facility]) THERAPEUTIC PX 1/> AREAS EACH 15 MIN EXERCISES 12:00:00 AM EDT [facility] ([facility] ) THERAPEUTIC PX 1/> AREAS EACH 15 MIN EXERCISES 12:00:00 AM EDT [facility] ([facility]) THERAPEUTIC PX 1/> AREAS EACH 15 MIN EXERCISES 12:00:00 AM EDT [facility] ([facility] ) THERAPEUTIC PX 1/> AREAS EACH 15 MIN EXERCISES 12:00:00 AM EDT [facility] ([facility] ) Massage, Each 15 Minutes 08/11/2019 12:00:00 AM EDT [facility] ([facility] ) THERAPEUTIC PX 1/> AREAS EACH 15 MIN EXERCISES 12:00:00 AM EDT [facility] ([facility] ) Massage, Each 15 Minutes 08/06/2019 12:00:00 AM EDT [facility] ([facility] ) THERAPEUTIC PX 1/> AREAS EACH 15 MIN EXERCISES 12:00:00 AM EDT [facility] ([facility] ) Massage, Each 15 Minutes 08/04/2019 12:00:00 AM EDT [facility] ([facility] ) THERAPEUTIC PX 1/> AREAS EACH 15 MIN EXERCISES 12:00:00 AM EDT [facility] ([facility] ) Massage, Each 15 Minutes 07/30/2019 12:00:00 AM EDT [facility] ([facility] ) THERAPEUTIC PX 1/> AREAS EACH 15 MIN EXERCISES 12:00:00 AM EST [facility] ([facility] ) Massage, Each 15 Minutes 07/23/2019 12:00:00 AM EST [facility] ([facility] ) THERAPEUTIC PX 1/> AREAS EACH 15 MIN EXERCISES 12:00:00 AM EST [facility] ([facility] ) THERAPEUTIC PX 1/> AREAS EACH 15 MIN EXERCISES 12:00:00 AM EST [facility] ([facility] ) Massage, Each 15 Minutes 07/16/2019 12:00:00 AM EST [facility] ([facility] ) Physical Therapy Eval - Low Complexity 07/14/2019 12:0 0:00 AM EST [facility] ([facility] ) TENODESIS LONG TENDON BICEPS 06/19/2019 12:00:00 AM ES T [facility] ([facility] ) TENODESIS LONG TENDON BICEPS 06/19/2019 12:00:00 AM ES T [facility] ([facility] ) Arthroscopy Shoulder Remove Loose/Foreign Body Dist Clavicul ectom 06/19/2019 12:00:00 AM EST [facility] ([facility] Arthroscopy Shoulder Removal Loose/Foreign Body Dist Clavicu lecto 06/19/2019 12:00:00 AM EST [facility] ([facility] ) SHOULDER SCOPE BONE SHAVING 06/19/2019 12:00:00 AM EST [facility] ([facility]) SHOULDER SCOPE BONE SHAVING 06/19/2019 12:00:00 AM EST [facility] ([facility]) Arthroscopy Shoulder Surgical With Rotator Cuff Repair 06/19/2019 12:00:00 AM EST [facility] ([facility]) Arthroscopy Shoulder Surgical W/Rotator Cuff Repair 06/19/2019 12:00:00 AM EST [facility] ([facility]) Results ID Date Data Source [id number] 01/06/2020 07:58:00 AM EDT [facility] ([facility]) Name Value Range Interpretation Code Description Data Maria M rce(s) Supporting Document(s) Thyrotropin [Units/volume] in Serum or Plasma 2.370 uIU/ML 0. 358-3.740 Normal (applies to non-numeric results) [facility] ([facility]) Magnesium [Mass/volume] in Serum or Plasma 1.7 mg/dL 1.8-2.4 Belo w low normal [facility] ([facility]) ID Date Data Source [id number] 01/06/2020 07:58:00 AM EDT [facility] ([facility]) Name Value Range Interpretation Code Description Data Maria M rce(s) Supporting Document(s) Triglycerides Level 272 mg/dL Above high [facility] HDL Cholesterol 31 mg/dL Below low normal [facility] ([facility]) Cholesterol Level 134 mg/dL Normal (applies to non-numeri c results) [facility] ([facility]) LDL Cholesterol 49 mg/dL Normal (applies to non-numeric results) [facility] ([facility]) Cholesterol Risk Ratio 4.322 Normal (applies to non-n umeric results) [facility] ([facility]) Non-HDL-C 103 mg/dL Normal (applies to non-numeric resul ts) [facility] ([facility]) ID Date Data Source [id number] 01/06/2020 07:58:00 AM EDT [facility] ([facility]) Name Value Range Interpretation Code Description Data Maria M rce(s) Supporting Document(s) Glucose, Fasting 274 mg/dL 70-100 Above high normal M [facility] ([facility]) Blood Urea Nitrogen 20 mg/dL 7-18 Above high normal [facility] ([facility]) Creatinine For GFR 1.00 mg/dL 0.55-1.30 Normal (applies to non -numeric results) [facility] ([facility]) Glomerular Filtration Rate 58.7 Normal (applies to n on-numeric results) [facility] ([facility]) <content>Units are mL/min/1.73 m2</content>
<content></content>
<content>Chronic Kidney Disease Staging per NKF:</content>
<content></content>
<content>Stage I & II GFR >=60 Normal to Mildly Decreased</content>
<content>Stage III GFR 30- 59 Moderately Decreased</content>
<content>Stage IV GFR 15-29 Severely Decreased</content>
<content>Stage V GFR <15 Very Little GFR Left</content>
<content>ESRD GFR <15 on ORCHESTRA DIRECTOR</content>
<content></content> Sodium Level 140 meq/L 136-145 Normal (applies to non-numeric res ults) [facility] ([facility]) Potassium Serum 3.3 meq/L 3.5-5.1 Below low normal [facility] ([facility]) Chloride Level 102 meq/L 98-107 Normal (applies to non-numeric r esults) [facility] ([facility]) Calcium Level 9.1 mg/dL 8.8-10.2 Normal (applies to non-numeric re sults) [facility] ([facility]) Carbon Dioxide Level 29 meq/L 21-32 Normal (applies to non-num delmy results) [facility] ([facility]) Anion Gap 9 meq/L 8-16 Normal (applies to non-numeric resul ts) [facility] ([facility]) Alt/SGPT 27 U/L 12-78 Normal (applies to non-numeric resul ts) [facility] ([facility]) Ast/Sgot 17 U/L 7-37 Normal (applies to non-numeric resul ts) [facility] ([facility]) Alkaline Phosphatase 54 U/L 45-117 Normal (applies to non-num delmy results) [facility] ([facility]) Albumin 3.6 GM/DL 3.2-5.2 Normal (applies to non-numeric resul ts) [facility] ([facility]) Total Protein 7.2 GM/DL 6.4-8.2 Normal (applies to non-numeric re sults) [facility] ([facility]) Bilirubin,Total 0.4 mg/dL 0.2-1.0 Normal (applies to non-numeric results) [facility] ([facility]) Albumin/Globulin Ratio 1.0 1.2-2.2 Below low normal [facility] ([facility]) ID Date Data Source [id number] 01/06/2020 07:58:00 AM EDT [facility] Name Value Range Interpretation Code Description Data Maria M rce(s) Supporting Document(s) Hemoglobin A1c 10.7 % Normal (applies to non-numeric r esults) [facility] ([facility]) <content>REFERENCE RANGES:</content><br/ ><content></content>
<content><=5.6% NORMAL</content>
<content>5.7-6.4% SUGGESTS IMPAIRED GLUCOSE METABOLISM/PREDIABETIC</content>
<content>>= 6.5% ABNORMAL</content>
<content></content> Estimated Average Glucose 260 mg/dL 60-110 Above high normal [facility] ([facility]) ID Date Data Source [id number] 01/06/2020 07:58:00 AM EDT [facility] ([facility]) Name Value Range Interpretation Code Description Data Maria M rce(s) Supporting Document(s) White Blood Count 10.4 10 4.0-10.0 Above high normal [facility] ([facility]) Hematocrit 39.2 % 36.0-47.0 Normal (applies to non-numeric resul ts) [facility] ([facility]) Red Blood Count 4.61 10 4.00-5.40 Normal (applies to non-numeric results) [facility] ([facility]) Hemoglobin 13.4 g/dL 12.0-15.5 Normal (applies to non-numeric resul ts) [facility] ([facility]) Mean Corpuscular Volume 85.0 fl 80.0-96.0 Normal ( applies to non-numeric results) [facility] ([facility]) Mean Corpuscular HGB Conc 34.2 g/dL 32.0-36.5 Normal (applies to non-numeric results) [facility] ([facility]) Mean Corpuscular Hemoglobin 29.1 pg 27.0-33.0 Norm al (applies to non-numeric results) [facility] ([facility]) Platelet Count, Automated 290 10 150-450 Normal (applies to non-numeric results) [facility] ([facility]) Red Cell Distribution Width 12.8 % 11.5-14.5 Norm al (applies to non-numeric results) [facility] ([facility]) [place] % 6.0 % 0.0-5.0 Above high normal [facility] ([facility]) Neutrophils % 67.1 % 36.0-66.0 Above high normal MEDE NT ([facility]) Lymph % 20.2 % 24.0-44.0 Below low normal [facility] ( [facility]) Eos % 5.9 % 0.0-3.0 Above high normal [facility] ([facility]) Baso % 0.5 % 0.0-1.0 Normal (applies to non-numeric resul ts) [facility] ([facility]) Neutrophils # 7.0 10 1.5-8.5 Normal (applies to non-numeric re sults) [facility] ([facility]) Immature Granulocyte % 0.3 % 0-3.0 Normal (applies to non-n umeric results) [facility] ([facility]) Nucleated Red Blood Cell % 0.0 % 0-0 Normal (applies to n on-numeric results) [facility] ([facility]) Eos # 0.6 10 0.0-0.5 Above high normal [facility] ([facility]) [place] # 0.6 10 0.0-0.8 Normal (applies to non-numeric resul ts) [facility] ([facility]) Lymph # 2.1 10 1.5-5.0 Normal (applies to non-numeric resul ts) [facility] ([facility]) Baso # 0.1 10 0.0-0.2 Normal (applies to non-numeric resul ts) [facility] ([facility]) ID Date Data Source [id number] 10/02/2019 10:49:00 AM EDT [facility] ([facility]) Name Value Range Interpretation Code Description Data Maria M rce(s) Supporting Document(s) Thyrotropin [Units/volume] in Serum or Plasma 1.900 uIU/ML 0. 358-3.740 Normal (applies to non-numeric results) [facility] ([facility]) Magnesium [Mass/volume] in Serum or Plasma 1.8 mg/dL 1.8-2 .4 Normal (applies to non-numeric results) [facility] ([facility]) ID Date Data Source [id number] 10/02/2019 10:49:00 AM EDT [facility] ([facility]) Name Value Range Interpretation Code Description Data Maria M rce(s) Supporting Document(s) Triglycerides Level 240 mg/dL Above high normal [facility] ([facility]) HDL Cholesterol 33 mg/dL Below low normal [facility] ([facility]) Cholesterol Level 137 mg/dL Normal (applies to non-numeri c results) [facility] ([facility]) Non-HDL-C 104 mg/dL Normal (applies to non-numeric resul ts) [facility] ([facility]) Cholesterol Risk Ratio 4.151 Normal (applies to non-n umeric results) [facility] ([facility]) LDL Cholesterol 56 mg/dL Normal (applies to non-numeric results) [facility] ([facility]) ID Date Data Source [id number] 10/02/2019 10:49:00 AM EDT [facility] ([facility]) Name Value Range Interpretation Code Description Data Maria M rce(s) Supporting Document(s) Glucose, Fasting 265 mg/dL 70-100 Above high normal M [facility] ([facility]) Blood Urea Nitrogen 17 mg/dL 7-18 Normal (applies to non-nume shelly results) [facility] ([facility]) Creatinine For GFR 0.92 mg/dL 0.55-1.30 Normal (applies to non -numeric results) [facility]) Glomerular Filtration Rate Laboratory test result Normal (applies to non- numeric results) [facility] ([facility]) <content>Units are mL/min/1.73 m2</content>
<content></content>
<content>Chronic Kidney Disease Staging per NKF:</content>
<content></content>
<content>Stage I & II GFR >=60 Normal to Mildly Decreased</content>
<content>Stage III GFR 30- 59 Moderately Decreased</content>
<content>Stage IV GFR 15-29 Severely Decreased</content>
<content>Stage V GFR <15 Very Little GFR Left</content>
<content>ESRD GFR <15 on ORCHESTRA DIRECTOR</content>
<content></content> Potassium Serum 3.5 meq/L 3.5-5.1 Normal (applies to non-numeric results) [facility] ([facility]) Sodium Level 140 meq/L 136-145 Normal (applies to non-numeric res ults) [facility] ([facility]) Chloride Level 99 meq/L 98-107 Normal (applies to non-numeric r esults) [facility] ([facility]) Calcium Level 8.7 mg/dL 8.8-10.2 Below low normal MEDEN T ([facility]) Anion Gap 10 meq/L 8-16 Normal (applies to non-numeric resul ts) [facility] ([facility]) Carbon Dioxide Level 31 meq/L 21-32 Normal (applies to non-num delmy results) [facility] ([facility]) Ast/Sgot 12 U/L 7-37 Normal (applies to non-numeric resul ts) [facility] ([facility]) Bilirubin,Total 0.5 mg/dL 0.2-1.0 Normal (applies to non-numeric results) [facility] ([facility]) Alt/SGPT 24 U/L 12-78 Normal (applies to non-numeric resul ts) [facility] ([facility]) Alkaline Phosphatase 52 U/L 45-117 Normal (applies to non-num delmy results) [facility] ([facility]) Albumin 3.5 GM/DL 3.2-5.2 Normal (applies to non-numeric resul ts) [facility] ([facility]) Albumin/Globulin Ratio 1.0 1.2-2.2 Below low normal [facility] ([facility]) Total Protein 7.0 GM/DL 6.4-8.2 Normal (applies to non-numeric re sults) [facility] ([facility]) ID Date Data Source [id number] 10/02/2019 10:49:00 AM EDT [facility] ([facility]) Name Value Range Interpretation Code Description Data Maria M rce(s) Supporting Document(s) Hemoglobin A1c 10.0 % Normal (applies to non-numeric r esults) [facility] ([facility]) REFERENCE RANGES: 4.5-5.6% NORMAL 5.7-6.4% SUGGESTS IMPAIRED GLUCOSE META BOLISM >= 6.5% ABNORMAL Estimated Average Glucose 240 mg/dL 60-110 Above high normal [facility] ([facility]) ID Date Data Source [id number] 10/02/2019 10:49:00 AM EDT [facility] ([facility]) Name Value Range Interpretation Code Description Data Maria M rce(s) Supporting Document(s) [place] % 6.9 % 0.0-5.0 Above high normal [facility] ([facility]) Neutrophils % 65.4 % 36.0-66.0 Normal (applies to non-numeric re sults) [facility] ([facility]) Lymph % 20.1 % 24.0-44.0 Below low normal [facility] ( [facility]) Immature Granulocyte % 0.4 % 0-3.0 Normal (applies to non-n umeric results) [facility] ([facility]) Eos % 6.6 % 0.0-3.0 Above high normal [facility] ([facility]) Baso % 0.6 % 0.0-1.0 Normal (applies to non-numeric resul ts) [facility] ([facility]) Lymph # 1.8 10 1.5-5.0 Normal (applies to non-numeric resul ts) [facility] ([facility]) [place] # 0.6 10 0.0-0.8 Normal (applies to non-numeric resul ts) [facility] ([facility]) Neutrophils # 5.9 10 1.5-8.5 Normal (applies to non-numeric re sults) [facility] ([facility]) Eos # 0.6 10 0.0-0.5 Above high normal [facility] ([facility]) Baso # 0.1 10 0.0-0.2 Normal (applies to non-numeric resul ts) [facility] ([facility]) ID Date Data Source [id number] 10/02/2019 10:49:00 AM EDT [facility] ([facility]) Name Value Range Interpretation Code Description Data Maria M rce(s) Supporting Document(s) Red Blood Count 4.51 10 4.00-5.40 Normal (applies to non-numeric results) [facility] ([facility]) Hemoglobin 12.9 g/dL 12.0-15.5 Normal (applies to non-numeric resul ts) [facility] ([facility]) White Blood Count 9.1 10 4.0-10.0 Normal (applies to non-numeri c results) [facility] ([facility]) Hematocrit 39.0 % 36.0-47.0 Normal (applies to non-numeric resul ts) [facility] ([facility]) Mean Corpuscular Hemoglobin 28.6 pg 27.0-33.0 Norm al (applies to non-numeric results) [facility] ([facility]) Mean Corpuscular Volume 86.5 fl 80.0-96.0 Normal ( applies to non-numeric results) [facility] ([facility]) Nucleated Red Blood Cell % 0.0 % 0-0 Normal (applies to n on-numeric results) [facility] Mean Corpuscular HGB Conc 33.1 g/dL 32.0-36.5 Normal (applies to non-numeric results) [facility] ([facility]) Red Cell Distribution Width 12.2 % 11.5-14.5 Norm al (applies to non-numeric results) [facility] ([facility]) Platelet Count, Automated 285 10 150-450 Normal (applies to non-numeric results) [facility] ([facility]) ID Date Data Source [id number] 07/28/2019 12:00:00 AM EDT [facility] Renetta Cruz MD Patient Name: CLARA [id number] [facility] Date of : 1950te 89 Date of Exam: 07/28/2019OlgakimmymargaretLAZARO [id number]#: Fax: [phone] EXAM: US EXTREMITY VEINS, UNILATERALCLINICAL [...] the procedure due to pain and decreased [id number]. ColorDoppler imaging suggested patency of the right [...] rce(s) Supporting Document(s) ID Date Data Source [id number] 06/20/2019 11:45:00 AM EST [facility] ([facility]) Name Value Range Interpretation Code Description Data Maria M rce(s) Supporting Document(s) Glucose [Mass/volume] in Capillary blood by Glucometer 297 mg/dL 80- 115 [facility] ([facility]) ID Date Data Source [id number] 06/20/2019 07:11:00 AM EST [facility] ([facility]) Name Value Range Interpretation Code Description Data Maria M rce(s) Supporting Document(s) Glucose [Mass/volume] in Capillary blood by Glucometer 217 mg/dL 80- 115 [facility] ([facility]) ID Date Data Source [id number] 06/20/2019 06:42:00 AM EST [facility] ([facility]) Name Value Range Interpretation Code Description Data Maria M rce(s) Supporting Document(s) Troponin I.cardiac [Mass/volume] in Serum or Plasma Laboratory test result [facility] ([facility]) <content>Troponin I Reference Interval f or Siemens Mooers LOCI:</content>
<content></content>
<content>99th Percentile= 0.00-0.045 ng/ml</content>
<content></content>
<content>Risk Stratification:</content>
<content><= 0.10 ng/ml Decreased Risk for Adverse Clinical</content>
<content>Events.</content>
<content>0.10-1.50 ng/ml Increased Risk for Adverse Clinical</content>
<content>Events. Evaluation of additional</content>
<content>criterion and/or repeat testing in 2-6</content>
<content>hours is suggested to rule out myocardial</content>
<content>damage.</content>
<content>>= 1.50 ng/ml Indicative of Myocardial Injury.</content>
<content></content> ID Date Data Source [id number] 06/19/2019 09:43:00 PM EST [facility] ([facility]) Name Value Range Interpretation Code Description Data Maria M rce(s) Supporting Document(s) Troponin I.cardiac [Mass/volume] in Serum or Plasma Laboratory test result [facility] ([facility] <content>Troponin I Reference Interval f or Siemens Mooers LOCI:</content>
<content></content>
<content>99th Percentile= 0.00-0.045 ng/ml</content>
<content></content>
<content>Risk Stratification:</content>
<content><= 0.10 ng/ml Decreased Risk for Adverse Clinical</content>
<content>Events.</content>
<content>0.10-1.50 ng/ml Increased Risk for Adverse Clinical</content>
<content>Events. Evaluation of additional</content>
<content>criterion and/or repeat testing in 2-6</content>
<content>hours is suggested to rule out myocardial</content>
<content>damage.</content>
<content>>= 1.50 ng/ml Indicative of Myocardial Injury.</content>
<content></content> ID Date Data Source [id number] 06/19/2019 08:05:00 PM EST [facility] ([facility]) Name Value Range Interpretation Code Description Data Maria M rce(s) Supporting Document(s) Glucose [Mass/volume] in Capillary blood by Glucometer 259 mg/dL 80- 115 [facility] ([facility]) ID Date Data Source [id number] 06/19/2019 05:06:00 PM EST [facility] ([facility]) Name Value Range Interpretation Code Description Data Maria M rce(s) Supporting Document(s) Glucose [Mass/volume] in Capillary blood by Glucometer 251 mg/dL 80- 115 [facility] ([facility]) ID Date Data Source [id number] 06/19/2019 03:52:00 PM EST [facility] ([facility] Name Value Range Interpretation Code Description Data Maria M rce(s) Supporting Document(s) Troponin I.cardiac [Mass/volume] in Serum or Plasma Laboratory test result [facility] ([facility]) <content>Troponin I Reference Interval f or Siemens Mooers LOCI:</content>
<content></content>
<content>99th Percentile= 0.00-0.045 ng/ml</content>
<content></content>
<content>Risk Stratification:</content>
<content><= 0.10 ng/ml Decreased Risk for Adverse Clinical</content>
<content>Events.</content>
<content>0.10-1.50 ng/ml Increased Risk for Adverse Clinical</content>
<content>Events. Evaluation of additional</content>
<content>criterion and/or repeat testing in 2-6</content>
<content>hours is suggested to rule out myocardial</content>
<content>damage.</content>
<content>>= 1.50 ng/ml Indicative of Myocardial Injury.</content>
<content></content> ID Date Data Source [id number] 06/19/2019 03:52:00 PM EST [facility] ([facility]) Name Value Range Interpretation Code Description Data Maria M rce(s) Supporting Document(s) Glucose, Fasting 294 mg/dL 70-100 [facility] ([facility]) Creatinine For GFR 1.08 mg/dL 0.55-1.30 [facility] ([facility]) Blood Urea Nitrogen 20 mg/dL 7-18 [facility] Sodium Level 138 meq/L 136-145 [facility] ([facility]) Glomerular Filtration Rate 53.9 [facility] ([facility]) <content>Units are mL/min/1.73 m2</content>
<content></content>
<content>Chronic Kidney Disease Staging per NKF:</content>
<content></content>
<content>Stage I & II GFR >=60 Normal to Mildly Decreased</content>
<content>Stage III GFR 30- 59 Moderately Decreased</content>
<content>Stage IV GFR 15-29 Severely Decreased</content>
<content>Stage V GFR <15 Very Little GFR Left</content>
<content>ESRD GFR <15 on ORCHESTRA DIRECTOR</content>
<content></content> Chloride Level 103 meq/L 98-107 [facility] ([facility]) Carbon Dioxide Level 24 meq/L 21-32 [facility] Potassium Serum 3.2 meq/L 3.5-5.1 [facility] ([facility]) Calcium Level 8.9 mg/dL 8.8-10.2 [facility] ([facility]) Anion Gap 11 meq/L 8-16 [facility] ([facility]) ID Date Data Source [id number] 06/19/2019 03:52:00 PM EST [facility] ([facility]) Name Value Range Interpretation Code Description Data Maria M rce(s) Supporting Document(s) CPK Creatine Phosphokinase 176 U/L 26-192 [facility] ([facility]) CK-MB Value Mass 2.8 ng/mL [facility] ([facility]) MB/CK Relative Index 1.59 [facility] ([facility]) <content>DIAGNOSIS CRITERIA</content>
<content>MMB ng/ml Relative Index (RI)</content>
<content>NON-AMI < or = 5 N/A</content>
<content>ATKINSON ZONE > 5 < or = 4</content>
<content>AMI > 5 > 4</content>
<content></content> ID Date Data Source [id number] 06/19/2019 03:52:00 PM EST [facility] ([facility]) Name Value Range Interpretation Code Description Data Maria M rce(s) Supporting Document(s) Red Blood Count 4.95 10 4.00-5.40 [facility] ([facility]) Hematocrit 44.0 % 36.0-47.0 [facility] ([facility]) White Blood Count 11.4 10 4.0-10.0 [facility] ([facility]) Hemoglobin 14.2 g/dL 12.0-15.5 [facility] ([facility]) Mean Corpuscular HGB Conc 32.3 g/dL 32.0-36.5 [facility] ([facility]) Mean Corpuscular Hemoglobin 28.7 pg 27.0-33.0 [facility] ([facility]) Mean Corpuscular Volume 88.9 fl 80.0-96.0 M [facility] ([facility]) Platelet Count, Automated 304 10 150-450 [facility] ([facility]) Red Cell Distribution Width 12.0 % 11.5-14.5 [facility] ([facility]) Nucleated Red Blood Cell % 0.0 % 0-0 [facility] ([facility]) ID Date Data Source [id number] 06/19/2019 02:58:00 PM EST [facility] ([facility]) Name Value Range Interpretation Code Description Data Maria M rce(s) Supporting Document(s) Glucose [Mass/volume] in Capillary blood by Glucometer 315 mg/dL 80- 115 [facility] ([facility]) ID Date Data Source [id number] 06/19/2019 01:01:00 PM [facility] Name Value Range Interpretation Code Description Data Maria M rce(s) Supporting Document(s) Surgical pathology study Laboratory test result [facility] ([facility]) FINAL DIAGNOSIS Right biceps proximal tendon: Portion of benign tendon without significant pathologic findings. 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 Milk Route Supervisor sections submitted in one cassette. -MS 06/22/2019 - 1306 Signed KIP ARAUZ MD 06/23/2019 1326 ID Date Data Source [id number] 06/19/2019 09:28:00 AM EST [facility] ([facility]) Name Value Range Interpretation Code Description Data Maria M rce(s) Supporting Document(s) Glucose [Mass/volume] in Capillary blood by Glucometer 243 mg/dL 80- 115 [facility] ([facility]) ID Date Data Source [id number] 06/10/2019 05:12:00 PM EST [facility] Name Value Range Interpretation Code Description Data Maria M rce(s) Supporting Document(s) Prothrombin time (PT) 13.2 SECONDS 11.0 - 15.5 [facility] INR in Platelet poor plasma by Coagulation assay 0.99 0.93 - 1. 23 [facility] \\BLDo\\INR INTERPRETATION\\BLDx\\ Therapeutic range for Coumadin and related oral anticoagulants. - International Normalized Ratio (INR): 2.0 - 3.0 for Venous Thrombosis, Pulmonary Embolus, Tissue heart valves, Acute [place], Atrial Fibrillation, Valvular heart disease and recurrent Systemic Embolism. -International Normalized Ratio (INR): 2.5 - 3.5 for Mechanical Prosthetic valve. ID Date Data Source [id number] 06/09/2019 02:40:00 PM EST [facility] ([facility]) Name Value Range Interpretation Code Description Data Maria M rce(s) Supporting Document(s) Hemoglobin A1c/Hemoglobin.total in Blood 11.0 % 4.4-6.1 Above high normal [facility] ([facility]) .~.~<DG1.3.1>Z01.812</DG1.3.1><DG1.3.1>E11.65</DG1.3.1><DG1.3.1>Z79.899</DG1.3.1 ><DG Is patient fasting? N~.~.~<DG1.3.1>Z01.812</DG1.3.1><DG1.3.1>E11.65</DG1.3.1><DG1.3.1>Z79.899</D .~.~<DG1.3.1> Z01.812</DG1.3.1><DG1.3.1>E11.65</DG1.3.1><DG1.3.1>Z79.899</DG1.3.1><DG .~.~<DG1.3.1>Z01.812</DG1.3.1><DG1.3.1>E11.65</DG1.3.1><DG1.3.1>Z79.899</DG1.3.1 ><DG ID Date Data Source [id number] 06/09/2019 02:40:00 PM EST [facility] ([facility]) Name Value Range Interpretation Code Description Data Maria M rce(s) Supporting Document(s) Inr 0.99 0.93-1.23 [facility] ([facility]) .~.~<DG1.3.1>Z01.812</DG1.3.1><DG1.3.1>E11.65</DG1.3.1><DG1.3.1>Z79.899</DG1.3.1 ><DG Is patient fasting? N~.~.~<DG1.3.1>Z01.812</DG1.3.1><DG1.3.1>E11.65</DG1.3.1><DG1.3.1>Z79.899</D .~.~<DG1.3.1> Z01.812</DG1.3.1><DG1.3.1>E11.65</DG1.3.1><DG1.3.1>Z79.899</DG1.3.1><DG .~.~<DG1.3.1>Z01.812</DG1.3.1><DG1.3.1>E11.65</DG1.3.1><DG1.3.1>Z79.899</DG1.3.1 ><DG Protime 13.2 s 11.0-15.5 [facility] ([facility]) .~.~<DG1.3.1>Z01.812</DG1.3.1><DG1.3.1>E11.65</DG1.3.1><DG1.3.1>Z79.899</DG1.3.1 ><DG Is patient fasting? N~.~.~<DG1.3.1>Z01.812</DG1.3.1><DG1.3.1>E11.65</DG1.3.1><DG1.3.1>Z79.899</D .~.~<DG1.3.1> Z01.812</DG1.3.1><DG1.3.1>E11.65</DG1.3.1><DG1.3.1>Z79.899</DG1.3.1><DG .~.~<DG1.3.1>Z01.812</DG1.3.1><DG1.3.1>E11.65</DG1.3.1><DG1.3.1>Z79.899</DG1.3.1 ><DG ID Date Data Source [id number] 06/09/2019 02:40:00 PM EST [facility] ([facility]) Name Value Range Interpretation Code Description Data Maria M rce(s) Supporting Document(s) PTT 33.3 s 24.8-36.7 [facility] ([facility]) .~.~<DG1.3.1>Z01.812</DG1.3.1><DG1.3.1>E11.65</DG1.3.1><DG1.3.1>Z79.899</DG1.3.1 ><DG Is patient fasting? N~.~.~<DG1.3.1>Z01.812</DG1.3.1><DG1.3.1>E11.65</DG1.3.1><DG1.3.1>Z79.899</D .~.~<DG1.3.1> Z01.812</DG1.3.1><DG1.3.1>E11.65</DG1.3.1><DG1.3.1>Z79.899</DG1.3.1><DG .~.~<DG1.3.1>Z01.812</DG1.3.1><DG1.3.1>E11.65</DG1.3.1><DG1.3.1>Z79.899</DG1.3.1 ><DG Inr 0.99 0.93-1.23 [facility] ([facility]) .~.~<DG1.3.1>Z01.812</DG1.3.1><DG1.3.1>E11.65</DG1.3.1><DG1.3.1>Z79.899</DG1.3.1 ><DG Is patient fasting? N~.~.~<DG1.3.1>Z01.812</DG1.3.1><DG1.3.1>E11.65</DG1.3.1><DG1.3.1>Z79.899</D .~.~<DG1.3.1> Z01.812</DG1.3.1><DG1.3.1>E11.65</DG1.3.1><DG1.3.1>Z79.899</DG1.3.1><DG .~.~<DG1.3.1>Z01.812</DG1.3.1><DG1.3.1>E11.65</DG1.3.1><DG1.3.1>Z79.899</DG1.3.1 ><DG Protime 13.2 s 11.0-15.5 [facility] ([facility]) .~.~<DG1.3.1>Z01.812</DG1.3.1><DG1.3.1>E11.65</DG1.3.1><DG1.3.1>Z79.899</DG1.3.1 ><DG Is patient fasting? N~.~.~<DG1.3.1>Z01.812</DG1.3.1><DG1.3.1>E11.65</DG1.3.1><DG1.3.1>Z79.899</D .~.~<DG1.3.1> Z01.812</DG1.3.1><DG1.3.1>E11.65</DG1.3.1><DG1.3.1>Z79.899</DG1.3.1><DG .~.~<DG1.3.1>Z01.812</DG1.3.1><DG1.3.1>E11.65</DG1.3.1><DG1.3.1>Z79.899</DG1.3.1 ><DG ID Date Data Source [id number] 06/09/2019 02:40:00 PM EST [facility] ([facility]) Name Value Range Interpretation Code Description Data Maria M rce(s) Supporting Document(s) Comprehensive [employer] Laboratory test result [facility] ([facility]) .~.~<DG1.3.1>Z01.812</DG1.3.1><DG1.3.1>E11.65</DG1.3.1><DG1.3.1>Z79.899</DG1.3.1 ><DG Is patient fasting? N~.~.~<DG1.3.1>Z01.812</DG1.3.1><DG1.3.1>E11.65</DG1.3.1><DG1.3.1>Z79.899</D .~.~<DG1.3.1> Z01.812</DG1.3.1><DG1.3.1>E11.65</DG1.3.1><DG1.3.1>Z79.899</DG1.3.1><DG .~.~<DG1.3.1>Z01.812</DG1.3.1><DG1.3.1>E11.65</DG1.3.1><DG1.3.1>Z79.899</DG1.3.1 ><DG Sodium 140 meq/L 134-153 [facility] ([facility]) .~.~<DG1.3.1>Z01.812</DG1.3.1><DG1.3.1>E11.65</DG1.3.1><DG1.3.1>Z79.899</DG1.3.1 ><DG Is patient fasting? N~.~.~<DG1.3.1>Z01.812</DG1.3.1><DG1.3.1>E11.65</DG1.3.1><DG1.3.1>Z79.899</D .~.~<DG1.3.1> Z01.812</DG1.3.1><DG1.3.1>E11.65</DG1.3.1><DG1.3.1>Z79.899</DG1.3.1><DG .~.~<DG1.3.1>Z01.812</DG1.3.1><DG1.3.1>E11.65</DG1.3.1><DG1.3.1>Z79.899</DG1.3.1 ><DG Chloride 99 meq/L 98-107 [facility] ([facility]) .~.~<DG1.3.1>Z01.812</DG1.3.1><DG1.3.1>E11.65</DG1.3.1><DG1.3.1>Z79.899</DG1.3.1 ><DG Is patient fasting? N~.~.~<DG1.3.1>Z01.812</DG1.3.1><DG1.3.1>E11.65</DG1.3.1><DG1.3.1>Z79.899</D .~.~<DG1.3.1> Z01.812</DG1.3.1><DG1.3.1>E11.65</DG1.3.1><DG1.3.1>Z79.899</DG1.3.1><DG .~.~<DG1.3.1>Z01.812</DG1.3.1><DG1.3.1>E11.65</DG1.3.1><DG1.3.1>Z79.899</DG1.3.1 ><DG Potassium 4.3 meq/L 3.6-5.0 [facility] ([facility]) .~.~<DG1.3.1>Z01.812</DG1.3.1><DG1.3.1>E11.65</DG1.3.1><DG1.3.1>Z79.899</DG1.3.1 ><DG Is patient fasting? N~.~.~<DG1.3.1>Z01.812</DG1.3.1><DG1.3.1>E11.65</DG1.3.1><DG1.3.1>Z79.899</D .~.~<DG1.3.1> Z01.812</DG1.3.1><DG1.3.1>E11.65</DG1.3.1><DG1.3.1>Z79.899</DG1.3.1><DG .~.~<DG1.3.1>Z01.812</DG1.3.1><DG1.3.1>E11.65</DG1.3.1><DG1.3.1>Z79.899</DG1.3.1 ><DG Co2 26 meq/L 22-30 [facility] ([facility]) .~.~<DG1.3.1>Z01.812</DG1.3.1><DG1.3.1>E11.65</DG1.3.1><DG1.3.1>Z79.899</DG1.3.1 ><DG Is patient fasting? N~.~.~<DG1.3.1>Z01.812</DG1.3.1><DG1.3.1>E11.65</DG1.3.1><DG1.3.1>Z79.899</D .~.~<DG1.3.1> Z01.812</DG1.3.1><DG1.3.1>E11.65</DG1.3.1><DG1.3.1>Z79.899</DG1.3.1><DG .~.~<DG1.3.1>Z01.812</DG1.3.1><DG1.3.1>E11.65</DG1.3.1><DG1.3.1>Z79.899</DG1.3.1 ><DG Glucose 293 mg/dL 65-110 Above high normal [facility] ([facility]) .~.~<DG1.3.1>Z01.812</DG1.3.1><DG1.3.1>E11.65</DG1.3.1><DG1.3.1>Z79.899</DG1.3.1 ><DG Is patient fasting? N~.~.~<DG1.3.1>Z01.812</DG1.3.1><DG1.3.1>E11.65</DG1.3.1><DG1.3.1>Z79.899</D .~.~<DG1.3.1> Z01.812</DG1.3.1><DG1.3.1>E11.65</DG1.3.1><DG1.3.1>Z79.899</DG1.3.1><DG .~.~<DG1.3.1>Z01.812</DG1.3.1><DG1.3.1>E11.65</DG1.3.1><DG1.3.1>Z79.899</DG1.3.1 ><DG Creatinine 0.8 mg/dL 0.7-1.5 [facility] ([facility]) .~.~<DG1.3.1>Z01.812</DG1.3.1><DG1.3.1>E11.65</DG1.3.1><DG1.3.1>Z79.899</DG1.3.1 ><DG Is patient fasting? N~.~.~<DG1.3.1>Z01.812</DG1.3.1><DG1.3.1>E11.65</DG1.3.1><DG1.3.1>Z79.899</D .~.~<DG1.3.1> Z01.812</DG1.3.1><DG1.3.1>E11.65</DG1.3.1><DG1.3.1>Z79.899</DG1.3.1><DG .~.~<DG1.3.1>Z01.812</DG1.3.1><DG1.3.1>E11.65</DG1.3.1><DG1.3.1>Z79.899</DG1.3.1 ><DG BUN 16 mg/dL 7-21 [facility] .~.~<DG1.3.1>Z01.812</DG1.3.1><DG1.3.1>E11.65</DG1.3.1><DG1.3.1>Z79.899</DG1.3.1 ><DG Is patient fasting? N~.~.~<DG1.3.1>Z01.812</DG1.3.1><DG1.3.1>E11.65</DG1.3.1><DG1.3.1>Z79.899</D .~.~<DG1.3.1> Z01.812</DG1.3.1><DG1.3.1>E11.65</DG1.3.1><DG1.3.1>Z79.899</DG1.3.1><DG .~.~<DG1.3.1>Z01.812</DG1.3.1><DG1.3.1>E11.65</DG1.3.1><DG1.3.1>Z79.899</DG1.3.1 ><DG Total Protein 7.3 g/dL 6.3-8.2 [facility] ([facility]) .~.~<DG1.3.1>Z01.812</DG1.3.1><DG1.3.1>E11.65</DG1.3.1><DG1.3.1>Z79.899</DG1.3.1 ><DG Is patient fasting? N~.~.~<DG1.3.1>Z01.812</DG1.3.1><DG1.3.1>E11.65</DG1.3.1><DG1.3.1>Z79.899</D .~.~<DG1.3.1> Z01.812</DG1.3.1><DG1.3.1>E11.65</DG1.3.1><DG1.3.1>Z79.899</DG1.3.1><DG .~.~<DG1.3.1>Z01.812</DG1.3.1><DG1.3.1>E11.65</DG1.3.1><DG1.3.1>Z79.899</DG1.3.1 ><DG BUN/Creat 20 8-27 [facility] ([facility]) .~.~<DG1.3.1>Z01.812</DG1.3.1><DG1.3.1>E11.65</DG1.3.1><DG1.3.1>Z79.899</DG1.3.1 ><DG Is patient fasting? N~.~.~<DG1.3.1>Z01.812</DG1.3.1><DG1.3.1>E11.65</DG1.3.1><DG1.3.1>Z79.899</D .~.~<DG1.3.1> Z01.812</DG1.3.1><DG1.3.1>E11.65</DG1.3.1><DG1.3.1>Z79.899</DG1.3.1><DG .~.~<DG1.3.1>Z01.812</DG1.3.1><DG1.3.1>E11.65</DG1.3.1><DG1.3.1>Z79.899</DG1.3.1 ><DG Globulin 2.9 GM/DL 2.4-3.2 [facility] ([facility]) .~.~<DG1.3.1>Z01.812</DG1.3.1><DG1.3.1>E11.65</DG1.3.1><DG1.3.1>Z79.899</DG1.3.1 ><DG Is patient fasting? N~.~.~<DG1.3.1>Z01.812</DG1.3.1><DG1.3.1>E11.65</DG1.3.1><DG1.3.1>Z79.899</D .~.~<DG1.3.1> Z01.812</DG1.3.1><DG1.3.1>E11.65</DG1.3.1><DG1.3.1>Z79.899</DG1.3.1><DG .~.~<DG1.3.1>Z01.812</DG1.3.1><DG1.3.1>E11.65</DG1.3.1><DG1.3.1>Z79.899</DG1.3.1 ><DG Albumin 4.4 g/dL 3.9-5.0 [facility] ([facility]) .~.~<DG1.3.1>Z01.812</DG1.3.1><DG1.3.1>E11.65</DG1.3.1><DG1.3.1>Z79.899</DG1.3.1 ><DG Is patient fasting? N~.~.~<DG1.3.1>Z01.812</DG1.3.1><DG1.3.1>E11.65</DG1.3.1><DG1.3.1>Z79.899</D .~.~<DG1.3.1> Z01.812</DG1.3.1><DG1.3.1>E11.65</DG1.3.1><DG1.3.1>Z79.899</DG1.3.1><DG .~.~<DG1.3.1>Z01.812</DG1.3.1><DG1.3.1>E11.65</DG1.3.1><DG1.3.1>Z79.899</DG1.3.1 ><DG A/G Ratio 1.5 0.8-2.0 [facility] .~.~<DG1.3.1>Z01.812</DG1.3.1><DG1.3.1>E11.65</DG1.3.1><DG1.3.1>Z79.899</DG1.3.1 ><DG Is patient fasting? N~.~.~<DG1.3.1>Z01.812</DG1.3.1><DG1.3.1>E11.65</DG1.3.1><DG1.3.1>Z79.899</D .~.~<DG1.3.1> Z01.812</DG1.3.1><DG1.3.1>E11.65</DG1.3.1><DG1.3.1>Z79.899</DG1.3.1><DG .~.~<DG1.3.1>Z01.812</DG1.3.1><DG1.3.1>E11.65</DG1.3.1><DG1.3.1>Z79.899</DG1.3.1 ><DG Calcium 9.7 mg/dL 8.4-10.2 [facility] ([facility]) .~.~<DG1.3.1>Z01.812</DG1.3.1><DG1.3.1>E11.65</DG1.3.1><DG1.3.1>Z79.899</DG1.3.1 ><DG Is patient fasting? N~.~.~<DG1.3.1>Z01.812</DG1.3.1><DG1.3.1>E11.65</DG1.3.1><DG1.3.1>Z79.899</D .~.~<DG1.3.1> Z01.812</DG1.3.1><DG1.3.1>E11.65</DG1.3.1><DG1.3.1>Z79.899</DG1.3.1><DG .~.~<DG1.3.1>Z01.812</DG1.3.1><DG1.3.1>E11.65</DG1.3.1><DG1.3.1>Z79.899</DG1.3.1 ><DG Alkaline Phos 52 U/L 38-126 [facility] ([facility]) .~.~<DG1.3.1>Z01.812</DG1.3.1><DG1.3.1>E11.65</DG1.3.1><DG1.3.1>Z79.899</DG1.3.1 ><DG Is patient fasting? N~.~.~<DG1.3.1>Z01.812</DG1.3.1><DG1.3.1>E11.65</DG1.3.1><DG1.3.1>Z79.899</D .~.~<DG1.3.1> Z01.812</DG1.3.1><DG1.3.1>E11.65</DG1.3.1><DG1.3.1>Z79.899</DG1.3.1><DG .~.~<DG1.3.1>Z01.812</DG1.3.1><DG1.3.1>E11.65</DG1.3.1><DG1.3.1>Z79.899</DG1.3.1 ><DG Total Bili 0.7 mg/dL 0.2-1.3 [facility] ([facility]) .~.~<DG1.3.1>Z01.812</DG1.3.1><DG1.3.1>E11.65</DG1.3.1><DG1.3.1>Z79.899</DG1.3.1 ><DG Is patient fasting? N~.~.~<DG1.3.1>Z01.812</DG1.3.1><DG1.3.1>E11.65</DG1.3.1><DG1.3.1>Z79.899</D .~.~<DG1.3.1> Z01.812</DG1.3.1><DG1.3.1>E11.65</DG1.3.1><DG1.3.1>Z79.899</DG1.3.1><DG .~.~<DG1.3.1>Z01.812</DG1.3.1><DG1.3.1>E11.65</DG1.3.1><DG1.3.1>Z79.899</DG1.3.1 ><DG Sgot/Ast 21 U/L 5-40 [facility] ([facility]) .~.~<DG1.3.1>Z01.812</DG1.3.1><DG1.3.1>E11.65</DG1.3.1><DG1.3.1>Z79.899</DG1.3.1 ><DG Is patient fasting? N~.~.~<DG1.3.1>Z01.812</DG1.3.1><DG1.3.1>E11.65</DG1.3.1><DG1.3.1>Z79.899</D .~.~<DG1.3.1> Z01.812</DG1.3.1><DG1.3.1>E11.65</DG1.3.1><DG1.3.1>Z79.899</DG1.3.1><DG .~.~<DG1.3.1>Z01.812</DG1.3.1><DG1.3.1>E11.65</DG1.3.1><DG1.3.1>Z79.899</DG1.3.1 ><DG Age 68 yrs [facility] ([facility]) .~.~<DG1.3.1>Z01.812</DG1.3.1><DG1.3.1>E11.65</DG1.3.1><DG1.3.1>Z79.899</DG1.3.1 ><DG Is patient fasting? N~.~.~<DG1.3.1>Z01.812</DG1.3.1><DG1.3.1>E11.65</DG1.3.1><DG1.3.1>Z79.899</D .~.~<DG1.3.1> Z01.812</DG1.3.1><DG1.3.1>E11.65</DG1.3.1><DG1.3.1>Z79.899</DG1.3.1><DG .~.~<DG1.3.1>Z01.812</DG1.3.1><DG1.3.1>E11.65</DG1.3.1><DG1.3.1>Z79.899</DG1.3.1 ><DG SGPT/Alt 18 U/L 7-56 [facility] ([facility]) .~.~<DG1.3.1>Z01.812</DG1.3.1><DG1.3.1>E11.65</DG1.3.1><DG1.3.1>Z79.899</DG1.3.1 ><DG Is patient fasting? N~.~.~<DG1.3.1>Z01.812</DG1.3.1><DG1.3.1>E11.65</DG1.3.1><DG1.3.1>Z79.899</D .~.~<DG1.3.1> Z01.812</DG1.3.1><DG1.3.1>E11.65</DG1.3.1><DG1.3.1>Z79.899</DG1.3.1><DG .~.~<DG1.3.1>Z01.812</DG1.3.1><DG1.3.1>E11.65</DG1.3.1><DG1.3.1>Z79.899</DG1.3.1 ><DG Anion Gap 15.0 mmol/L 8.0-16.0 [facility] ([facility]) .~.~<DG1.3.1>Z01.812</DG1.3.1><DG1.3.1>E11.65</DG1.3.1><DG1.3.1>Z79.899</DG1.3.1 ><DG Is patient fasting? N~.~.~<DG1.3.1>Z01.812</DG1.3.1><DG1.3.1>E11.65</DG1.3.1><DG1.3.1>Z79.899</D .~.~<DG1.3.1> Z01.812</DG1.3.1><DG1.3.1>E11.65</DG1.3.1><DG1.3.1>Z79.899</DG1.3.1><DG .~.~<DG1.3.1>Z01.812</DG1.3.1><DG1.3.1>E11.65</DG1.3.1><DG1.3.1>Z79.899</DG1.3.1 ><DG Non-Aa GFR Laboratory test result [facility] ([facility]) .~.~<DG1.3.1>Z01.812</DG1.3.1><DG1.3.1>E11.65</DG1.3.1><DG1.3.1>Z79.899</DG1.3.1 ><DG Is patient fasting? N~.~.~<DG1.3.1>Z01.812</DG1.3.1><DG1.3.1>E11.65</DG1.3.1><DG1.3.1>Z79.899</D .~.~<DG1.3.1> Z01.812</DG1.3.1><DG1.3.1>E11.65</DG1.3.1><DG1.3.1>Z79.899</DG1.3.1><DG .~.~<DG1.3.1>Z01.812</DG1.3.1><DG1.3.1>E11.65</DG1.3.1><DG1.3.1>Z79.899</DG1.3.1 ><DG Afr Amer GFR Laboratory test result [facility] ([facility]) .~.~<DG1.3.1>Z01.812</DG1.3.1><DG1.3.1>E11.65</DG1.3.1><DG1.3.1>Z79.899</DG1.3.1 ><DG Is patient fasting? N~.~.~<DG1.3.1>Z01.812</DG1.3.1><DG1.3.1>E11.65</DG1.3.1><DG1.3.1>Z79.899</D .~.~<DG1.3.1> Z01.812</DG1.3.1><DG1.3.1>E11.65</DG1.3.1><DG1.3.1>Z79.899</DG1.3.1><DG .~.~<DG1.3.1>Z01.812</DG1.3.1><DG1.3.1>E11.65</DG1.3.1><DG1.3.1>Z79.899</DG1.3.1 ><DG ID Date Data Source [id number] 06/09/2019 02:40:00 PM EST [facility] ([facility]) Name Value Range Interpretation Code Description Data Maria M rce(s) Supporting Document(s) CBC W/Automated Diff Laboratory test result [facility] ([facility]) .~.~<DG1.3.1>Z01.812</DG1.3.1><DG1.3.1>E11.65</DG1.3.1><DG1.3.1>Z79.899</DG1.3.1 ><DG Is patient fasting? N~.~.~<DG1.3.1>Z01.812</DG1.3.1><DG1.3.1>E11.65</DG1.3.1><DG1.3.1>Z79.899</D .~.~<DG1.3.1> Z01.812</DG1.3.1><DG1.3.1>E11.65</DG1.3.1><DG1.3.1>Z79.899</DG1.3.1><DG .~.~<DG1.3.1>Z01.812</DG1.3.1><DG1.3.1>E11.65</DG1.3.1><DG1.3.1>Z79.899</DG1.3.1 ><DG WBC 10.6 10^3/uL 4.2-11.0 [facility] ([facility]) .~.~<DG1.3.1>Z01.812</DG1.3.1><DG1.3.1>E11.65</DG1.3.1><DG1.3.1>Z79.899</DG1.3.1 ><DG Is patient fasting? N~.~.~<DG1.3.1>Z01.812</DG1.3.1><DG1.3.1>E11.65</DG1.3.1><DG1.3.1>Z79.899</D .~.~<DG1.3.1> Z01.812</DG1.3.1><DG1.3.1>E11.65</DG1.3.1><DG1.3.1>Z79.899</DG1.3.1><DG .~.~<DG1.3.1>Z01.812</DG1.3.1><DG1.3.1>E11.65</DG1.3.1><DG1.3.1>Z79.899</DG1.3.1 ><DG Hematocrit 43.7 % 37.0-47.0 [facility] ([facility]) .~.~<DG1.3.1>Z01.812</DG1.3.1><DG1.3.1>E11.65</DG1.3.1><DG1.3.1>Z79.899</DG1.3.1 ><DG Is patient fasting? N~.~.~<DG1.3.1>Z01.812</DG1.3.1><DG1.3.1>E11.65</DG1.3.1><DG1.3.1>Z79.899</D .~.~<DG1.3.1> Z01.812</DG1.3.1><DG1.3.1>E11.65</DG1.3.1><DG1.3.1>Z79.899</DG1.3.1><DG .~.~<DG1.3.1>Z01.812</DG1.3.1><DG1.3.1>E11.65</DG1.3.1><DG1.3.1>Z79.899</DG1.3.1 ><DG MCV 89.7 fL 81.0-101 [facility] ([facility]) .~.~<DG1.3.1>Z01.812</DG1.3.1><DG1.3.1>E11.65</DG1.3.1><DG1.3.1>Z79.899</DG1.3.1 ><DG Is patient fasting? N~.~.~<DG1.3.1>Z01.812</DG1.3.1><DG1.3.1>E11.65</DG1.3.1><DG1.3.1>Z79.899</D .~.~<DG1.3.1> Z01.812</DG1.3.1><DG1.3.1>E11.65</DG1.3.1><DG1.3.1>Z79.899</DG1.3.1><DG .~.~<DG1.3.1>Z01.812</DG1.3.1><DG1.3.1>E11.65</DG1.3.1><DG1.3.1>Z79.899</DG1.3.1 ><DG Hemoglobin 14.2 g/dL 12.0-16.0 [facility] ([facility]) .~.~<DG1.3.1>Z01.812</DG1.3.1><DG1.3.1>E11.65</DG1.3.1><DG1.3.1>Z79.899</DG1.3.1 ><DG Is patient fasting? N~.~.~<DG1.3.1>Z01.812</DG1.3.1><DG1.3.1>E11.65</DG1.3.1><DG1.3.1>Z79.899</D .~.~<DG1.3.1> Z01.812</DG1.3.1><DG1.3.1>E11.65</DG1.3.1><DG1.3.1>Z79.899</DG1.3.1><DG .~.~<DG1.3.1>Z01.812</DG1.3.1><DG1.3.1>E11.65</DG1.3.1><DG1.3.1>Z79.899</DG1.3.1 ><DG RBC 4.87 10^6/uL 4.20-5.40 [facility] ([facility]) .~.~<DG1.3.1>Z01.812</DG1.3.1><DG1.3.1>E11.65</DG1.3.1><DG1.3.1>Z79.899</DG1.3.1 ><DG Is patient fasting? N~.~.~<DG1.3.1>Z01.812</DG1.3.1><DG1.3.1>E11.65</DG1.3.1><DG1.3.1>Z79.899</D .~.~<DG1.3.1> Z01.812</DG1.3.1><DG1.3.1>E11.65</DG1.3.1><DG1.3.1>Z79.899</DG1.3.1><DG .~.~<DG1.3.1>Z01.812</DG1.3.1><DG1.3.1>E11.65</DG1.3.1><DG1.3.1>Z79.899</DG1.3.1 ><DG MCHC 32.5 g/dL 31.0-36.0 [facility] ([facility]) .~.~<DG1.3.1>Z01.812</DG1.3.1><DG1.3.1>E11.65</DG1.3.1><DG1.3.1>Z79.899</DG1.3.1 ><DG Is patient fasting? N~.~.~<DG1.3.1>Z01.812</DG1.3.1><DG1.3.1>E11.65</DG1.3.1><DG1.3.1>Z79.899</D .~.~<DG1.3.1> Z01.812</DG1.3.1><DG1.3.1>E11.65</DG1.3.1><DG1.3.1>Z79.899</DG1.3.1><DG .~.~<DG1.3.1>Z01.812</DG1.3.1><DG1.3.1>E11.65</DG1.3.1><DG1.3.1>Z79.899</DG1.3.1 ><DG MCH 29.2 pg 27.0-34.0 [facility] ([facility]) .~.~<DG1.3.1>Z01.812</DG1.3.1><DG1.3.1>E11.65</DG1.3.1><DG1.3.1>Z79.899</DG1.3.1 ><DG Is patient fasting? N~.~.~<DG1.3.1>Z01.812</DG1.3.1><DG1.3.1>E11.65</DG1.3.1><DG1.3.1>Z79.899</D .~.~<DG1.3.1> Z01.812</DG1.3.1><DG1.3.1>E11.65</DG1.3.1><DG1.3.1>Z79.899</DG1.3.1><DG .~.~<DG1.3.1>Z01.812</DG1.3.1><DG1.3.1>E11.65</DG1.3.1><DG1.3.1>Z79.899</DG1.3.1 ><DG RDW 12.2 % 11.5-14.5 [facility] ([facility]) .~.~<DG1.3.1>Z01.812</DG1.3.1><DG1.3.1>E11.65</DG1.3.1><DG1.3.1>Z79.899</DG1.3.1 ><DG Is patient fasting? N~.~.~<DG1.3.1>Z01.812</DG1.3.1><DG1.3.1>E11.65</DG1.3.1><DG1.3.1>Z79.899</D .~.~<DG1.3.1> Z01.812</DG1.3.1><DG1.3.1>E11.65</DG1.3.1><DG1.3.1>Z79.899</DG1.3.1><DG .~.~<DG1.3.1>Z01.812</DG1.3.1><DG1.3.1>E11.65</DG1.3.1><DG1.3.1>Z79.899</DG1.3.1 ><DG Neut 66.9 % 37.0-80.0 [facility] ([facility]) .~.~<DG1.3.1>Z01.812</DG1.3.1><DG1.3.1>E11.65</DG1.3.1><DG1.3.1>Z79.899</DG1.3.1 ><DG Is patient fasting? N~.~.~<DG1.3.1>Z01.812</DG1.3.1><DG1.3.1>E11.65</DG1.3.1><DG1.3.1>Z79.899</D .~.~<DG1.3.1> Z01.812</DG1.3.1><DG1.3.1>E11.65</DG1.3.1><DG1.3.1>Z79.899</DG1.3.1><DG .~.~<DG1.3.1>Z01.812</DG1.3.1><DG1.3.1>E11.65</DG1.3.1><DG1.3.1>Z79.899</DG1.3.1 ><DG MPV 10.7 fL 7.4-10.4 Above high normal [facility] ([facility]) .~.~<DG1.3.1>Z01.812</DG1.3.1><DG1.3.1>E11.65</DG1.3.1><DG1.3.1>Z79.899</DG1.3.1 ><DG Is patient fasting? N~.~.~<DG1.3.1>Z01.812</DG1.3.1><DG1.3.1>E11.65</DG1.3.1><DG1.3.1>Z79.899</D .~.~<DG1.3.1> Z01.812</DG1.3.1><DG1.3.1>E11.65</DG1.3.1><DG1.3.1>Z79.899</DG1.3.1><DG .~.~<DG1.3.1>Z01.812</DG1.3.1><DG1.3.1>E11.65</DG1.3.1><DG1.3.1>Z79.899</DG1.3.1 ><DG Platelets 278 10^3/uL 150-450 [facility] ([facility]) .~.~<DG1.3.1>Z01.812</DG1.3.1><DG1.3.1>E11.65</DG1.3.1><DG1.3.1>Z79.899</DG1.3.1 ><DG Is patient fasting? N~.~.~<DG1.3.1>Z01.812</DG1.3.1><DG1.3.1>E11.65</DG1.3.1><DG1.3.1>Z79.899</D .~.~<DG1.3.1> Z01.812</DG1.3.1><DG1.3.1>E11.65</DG1.3.1><DG1.3.1>Z79.899</DG1.3.1><DG .~.~<DG1.3.1>Z01.812</DG1.3.1><DG1.3.1>E11.65</DG1.3.1><DG1.3.1>Z79.899</DG1.3.1 ><DG Lymph 20.9 % 25.0-40.0 Below low normal [facility] ( [facility]) .~.~<DG1.3.1>Z01.812</DG1.3.1><DG1.3.1>E11.65</DG1.3.1><DG1.3.1>Z79.899</DG1.3.1 ><DG Is patient fasting? N~.~.~<DG1.3.1>Z01.812</DG1.3.1><DG1.3.1>E11.65</DG1.3.1><DG1.3.1>Z79.899</D .~.~<DG1.3.1> Z01.812</DG1.3.1><DG1.3.1>E11.65</DG1.3.1><DG1.3.1>Z79.899</DG1.3.1><DG .~.~<DG1.3.1>Z01.812</DG1.3.1><DG1.3.1>E11.65</DG1.3.1><DG1.3.1>Z79.899</DG1.3.1 ><DG Eos 5.2 % 0.0-7.0 [facility] ([facility]) .~.~<DG1.3.1>Z01.812</DG1.3.1><DG1.3.1>E11.65</DG1.3.1><DG1.3.1>Z79.899</DG1.3.1 ><DG Is patient fasting? N~.~.~<DG1.3.1>Z01.812</DG1.3.1><DG1.3.1>E11.65</DG1.3.1><DG1.3.1>Z79.899</D .~.~<DG1.3.1> Z01.812</DG1.3.1><DG1.3.1>E11.65</DG1.3.1><DG1.3.1>Z79.899</DG1.3.1><DG .~.~<DG1.3.1>Z01.812</DG1.3.1><DG1.3.1>E11.65</DG1.3.1><DG1.3.1>Z79.899</DG1.3.1 ><DG [place] 6.2 % 3.0-8.0 [facility] ([facility]) .~.~<DG1.3.1>Z01.812</DG1.3.1><DG1.3.1>E11.65</DG1.3.1><DG1.3.1>Z79.899</DG1.3.1 ><DG Is patient fasting? N~.~.~<DG1.3.1>Z01.812</DG1.3.1><DG1.3.1>E11.65</DG1.3.1><DG1.3.1>Z79.899</D .~.~<DG1.3.1> Z01.812</DG1.3.1><DG1.3.1>E11.65</DG1.3.1><DG1.3.1>Z79.899</DG1.3.1><DG .~.~<DG1.3.1>Z01.812</DG1.3.1><DG1.3.1>E11.65</DG1.3.1><DG1.3.1>Z79.899</DG1.3.1 ><DG %Ig 0.3 % 0.0-0.0 Above high normal [facility] ([facility]) .~.~<DG1.3.1>Z01.812</DG1.3.1><DG1.3.1>E11.65</DG1.3.1><DG1.3.1>Z79.899</DG1.3.1 ><DG Is patient fasting? N~.~.~<DG1.3.1>Z01.812</DG1.3.1><DG1.3.1>E11.65</DG1.3.1><DG1.3.1>Z79.899</D .~.~<DG1.3.1> Z01.812</DG1.3.1><DG1.3.1>E11.65</DG1.3.1><DG1.3.1>Z79.899</DG1.3.1><DG .~.~<DG1.3.1>Z01.812</DG1.3.1><DG1.3.1>E11.65</DG1.3.1><DG1.3.1>Z79.899</DG1.3.1 ><DG %NRBC 0.0 % 0.0-0.0 [facility] ([facility]) .~.~<DG1.3.1>Z01.812</DG1.3.1><DG1.3.1>E11.65</DG1.3.1><DG1.3.1>Z79.899</DG1.3.1 ><DG Is patient fasting? N~.~.~<DG1.3.1>Z01.812</DG1.3.1><DG1.3.1>E11.65</DG1.3.1><DG1.3.1>Z79.899</D .~.~<DG1.3.1> Z01.812</DG1.3.1><DG1.3.1>E11.65</DG1.3.1><DG1.3.1>Z79.899</DG1.3.1><DG .~.~<DG1.3.1>Z01.812</DG1.3.1><DG1.3.1>E11.65</DG1.3.1><DG1.3.1>Z79.899</DG1.3.1 ><DG Baso 0.5 % 0.0-2.5 [facility] ([facility]) .~.~<DG1.3.1>Z01.812</DG1.3.1><DG1.3.1>E11.65</DG1.3.1><DG1.3.1>Z79.899</DG1.3.1 ><DG Is patient fasting? N~.~.~<DG1.3.1>Z01.812</DG1.3.1><DG1.3.1>E11.65</DG1.3.1><DG1.3.1>Z79.899</D .~.~<DG1.3.1> Z01.812</DG1.3.1><DG1.3.1>E11.65</DG1.3.1><DG1.3.1>Z79.899</DG1.3.1><DG .~.~<DG1.3.1>Z01.812</DG1.3.1><DG1.3.1>E11.65</DG1.3.1><DG1.3.1>Z79.899</DG1.3.1 ><DG #Lymph 2.21 10^3/uL 0.60-3.40 [facility] ([facility]) .~.~<DG1.3.1>Z01.812</DG1.3.1><DG1.3.1>E11.65</DG1.3.1><DG1.3.1>Z79.899</DG1.3.1 ><DG Is patient fasting? N~.~.~<DG1.3.1>Z01.812</DG1.3.1><DG1.3.1>E11.65</DG1.3.1><DG1.3.1>Z79.899</D .~.~<DG1.3.1> Z01.812</DG1.3.1><DG1.3.1>E11.65</DG1.3.1><DG1.3.1>Z79.899</DG1.3.1><DG .~.~<DG1.3.1>Z01.812</DG1.3.1><DG1.3.1>E11.65</DG1.3.1><DG1.3.1>Z79.899</DG1.3.1 ><DG #Neut 7.09 10^3/uL 2.00-6.90 Above high normal [facility] ([facility]) .~.~<DG1.3.1>Z01.812</DG1.3.1><DG1.3.1>E11.65</DG1.3.1><DG1.3.1>Z79.899</DG1.3.1 ><DG Is patient fasting? N~.~.~<DG1.3.1>Z01.812</DG1.3.1><DG1.3.1>E11.65</DG1.3.1><DG1.3.1>Z79.899</D .~.~<DG1.3.1> Z01.812</DG1.3.1><DG1.3.1>E11.65</DG1.3.1><DG1.3.1>Z79.899</DG1.3.1><DG .~.~<DG1.3.1>Z01.812</DG1.3.1><DG1.3.1>E11.65</DG1.3.1><DG1.3.1>Z79.899</DG1.3.1 ><DG #[place] 0.66 10^3/uL 0.00-0.90 [facility] ([facility]) .~.~<DG1.3.1>Z01.812</DG1.3.1><DG1.3.1>E11.65</DG1.3.1><DG1.3.1>Z79.899</DG1.3.1 ><DG Is patient fasting? N~.~.~<DG1.3.1>Z01.812</DG1.3.1><DG1.3.1>E11.65</DG1.3.1><DG1.3.1>Z79.899</D .~.~<DG1.3.1> Z01.812</DG1.3.1><DG1.3.1>E11.65</DG1.3.1><DG1.3.1>Z79.899</DG1.3.1><DG .~.~<DG1.3.1>Z01.812</DG1.3.1><DG1.3.1>E11.65</DG1.3.1><DG1.3.1>Z79.899</DG1.3.1 ><DG #Eos 0.55 10^3/uL 0.00-0.70 [facility] .~.~<DG1.3.1>Z01.812</DG1.3.1><DG1.3.1>E11.65</DG1.3.1><DG1.3.1>Z79.899</DG1.3.1 ><DG Is patient fasting? N~.~.~<DG1.3.1>Z01.812</DG1.3.1><DG1.3.1>E11.65</DG1.3.1><DG1.3.1>Z79.899</D .~.~<DG1.3.1> Z01.812</DG1.3.1><DG1.3.1>E11.65</DG1.3.1><DG1.3.1>Z79.899</DG1.3.1><DG .~.~<DG1.3.1>Z01.812</DG1.3.1><DG1.3.1>E11.65</DG1.3.1><DG1.3.1>Z79.899</DG1.3.1 ><DG #Baso 0.05 10^3/uL 0.00-0.20 [facility] ([facility]) .~.~<DG1.3.1>Z01.812</DG1.3.1><DG1.3.1>E11.65</DG1.3.1><DG1.3.1>Z79.899</DG1.3.1 ><DG Is patient fasting? N~.~.~<DG1.3.1>Z01.812</DG1.3.1><DG1.3.1>E11.65</DG1.3.1><DG1.3.1>Z79.899</D .~.~<DG1.3.1> Z01.812</DG1.3.1><DG1.3.1>E11.65</DG1.3.1><DG1.3.1>Z79.899</DG1.3.1><DG .~.~<DG1.3.1>Z01.812</DG1.3.1><DG1.3.1>E11.65</DG1.3.1><DG1.3.1>Z79.899</DG1.3.1 ><DG #NRBC 0.00 10^3/uL 0.00-0.00 [facility] ([facility]) .~.~<DG1.3.1>Z01.812</DG1.3.1><DG1.3.1>E11.65</DG1.3.1><DG1.3.1>Z79.899</DG1.3.1 ><DG Is patient fasting? N~.~.~<DG1.3.1>Z01.812</DG1.3.1><DG1.3.1>E11.65</DG1.3.1><DG1.3.1>Z79.899</D .~.~<DG1.3.1> Z01.812</DG1.3.1><DG1.3.1>E11.65</DG1.3.1><DG1.3.1>Z79.899</DG1.3.1><DG .~.~<DG1.3.1>Z01.812</DG1.3.1><DG1.3.1>E11.65</DG1.3.1><DG1.3.1>Z79.899</DG1.3.1 ><DG #Ig 0.03 10^3/uL 0.00-0.10 [facility] ([facility]) .~.~<DG1.3.1>Z01.812</DG1.3.1><DG1.3.1>E11.65</DG1.3.1><DG1.3.1>Z79.899</DG1.3.1 ><DG Is patient fasting? N~.~.~<DG1.3.1>Z01.812</DG1.3.1><DG1.3.1>E11.65</DG1.3.1><DG1.3.1>Z79.899</D .~.~<DG1.3.1> Z01.812</DG1.3.1><DG1.3.1>E11.65</DG1.3.1><DG1.3.1>Z79.899</DG1.3.1><DG .~.~<DG1.3.1>Z01.812</DG1.3.1><DG1.3.1>E11.65</DG1.3.1><DG1.3.1>Z79.899</DG1.3.1 ><DG Manual Diff Laboratory test result Annie ASHLEY ([facility]) .~.~<DG1.3.1>Z01.812</DG1.3.1><DG1.3.1>E11.65</DG1.3.1><DG1.3.1>Z79.899</DG1.3.1 ><DG Is patient fasting? N~.~.~<DG1.3.1>Z01.812</DG1.3.1><DG1.3.1>E11.65</DG1.3.1><DG1.3.1>Z79.899</D .~.~<DG1.3.1> Z01.812</DG1.3.1><DG1.3.1>E11.65</DG1.3.1><DG1.3.1>Z79.899</DG1.3.1><DG .~.~<DG1.3.1>Z01.812</DG1.3.1><DG1.3.1>E11.65</DG1.3.1><DG1.3.1>Z79.899</DG1.3.1 ><DG RBC Morph Laboratory test result [facility] ([facility]) .~.~<DG1.3.1>Z01.812</DG1.3.1><DG1.3.1>E11.65</DG1.3.1><DG1.3.1>Z79.899</DG1.3.1 ><DG Is patient fasting? N~.~.~<DG1.3.1>Z01.812</DG1.3.1><DG1.3.1>E11.65</DG1.3.1><DG1.3.1>Z79.899</D .~.~<DG1.3.1> Z01.812</DG1.3.1><DG1.3.1>E11.65</DG1.3.1><DG1.3.1>Z79.899</DG1.3.1><DG .~.~<DG1.3.1>Z01.812</DG1.3.1><DG1.3.1>E11.65</DG1.3.1><DG1.3.1>Z79.899</DG1.3.1 ><DG ID Date Data Source [id number] 06/10/2019 05:51:00 PM EST [facility] Name Value Range Interpretation Code Description Data Maria M rce(s) Supporting Document(s) Hemoglobin A1c/Hemoglobin.total in Blood 11.0 % 4.4 - 6.1 H [facility] {A1]{HB] ID Date Data Source [id number] 06/10/2019 05:34:00 PM EST [facility] Name Value Range Interpretation Code Description Data Maria M rce(s) Supporting Document(s) CBC W/AUTOMATED DIFF [facility] COMPLETE BLOOD COUNT Leukocytes [#/volume] in Blood by Automated count 10.6 10^3/uL 4.2 - 11.0 [facility] Erythrocytes [#/volume] in Blood by Automated count 4.87 10^6/uL 4. 20 - 5.40 [facility] Hemoglobin [Mass/volume] in Blood 14.2 g/dL 12.0 - 16.0 [facility] Hematocrit [Volume Fraction] of Blood by Automated count 43.7 % 3 7.0 - 47.0 [facility] Erythrocyte mean corpuscular volume [Entitic volume] by Auto mated count 89.7 fL 81.0 - 101 [facility] Erythrocyte mean corpuscular hemoglobin [Entitic mass] by Automated count 29.2 pg 27.0 - 34.0 [facility] Erythrocyte mean corpuscular hemoglobin concentration [Mass/volume] by Automated count 32.5 g/dL 31.0 - 36.0 [facility] Erythrocyte distribution width [Ratio] by Automated count 12.2 % 11.5 - 14.5 [facility] Platelets [#/volume] in Blood by Automated count 278 10^3/uL 150 - 45 0 [facility] Platelet mean volume [Entitic volume] in Blood by Automated count 10.7 fL 7.4 - 10.4 H [facility] Neutrophils/100 leukocytes in Blood by Automated count 66.9 % 37. 0 - 80.0 [facility] Lymphocytes/100 leukocytes in Blood by Manual count 20.9 % 25.0 - 40.0 L [facility] Monocytes/100 leukocytes in Blood by Automated count 6.2 % 3.0 - 8.0 [facility] Eosinophils/100 leukocytes in Blood by Automated count 5.2 % 0.0 - 7.0 [facility] Basophils/100 leukocytes in Blood by Automated count 0.5 % 0.0 - 2.5 [facility] %IG 0.3 % 0.0 - 0.0 H [facility] al %NRBC 0.0 % 0.0 - 0.0 [facility] al Neutrophils [#/volume] in Blood by Automated count 7.09 10^3/uL 2.00 - 6.90 H [facility] Lymphocytes [#/volume] in Blood by Automated count 2.21 10^3/uL 0.60 - 3.40 [facility] Monocytes [#/volume] in Blood by Automated count 0.66 10^3/uL 0.00 - 0.90 [facility] Eosinophils [#/volume] in Blood by Automated count 0.55 10^3/uL 0.00 - 0.70 [facility] Basophils [#/volume] in Blood by Automated count 0.05 10^3/uL 0.00 - 0.20 [facility] #IG 0.03 10^3/uL 0.00 - 0.10 [facility] #NRBC 0.00 10^3/uL 0.00 - 0.00 [facility] MANUAL DIFF NOT INDICATED [facility] RBC MORPH SEE BELOW [facility] al { SICKLE CELL (NORMAL: NONE SEEN ) COMMENT: _NO_PLATELET_CLUMPING_SEEN 06/10/19.MS . . . ____ ID Date Data Source [id number] 06/10/2019 05:26:00 PM EST [facility] Name Value Range Interpretation Code Description Data Maria M rce(s) Supporting Document(s) COMPREHENSIVE METABOLIC PANEL [facility] COMPREHENSIVE METABOLIC PANEL Sodium [Moles/volume] in Serum or Plasma 140 mEq/L 134 - 153 [facility] Potassium [Moles/volume] in Serum or Plasma 4.3 mEq/L 3.6 - 5.0 [facility] Chloride [Moles/volume] in Serum or Plasma 99 mEq/L 98 - 107 [facility] Carbon dioxide, total [Moles/volume] in Serum or Plasma 26 MEQ/L 22 - 30 [facility] Glucose [Mass/volume] in Serum or Plasma 293 MG/DL 65 - 110 H [facility] BUN 16 MG/DL 7 - 21 [facility] Creatinine [Mass/volume] in Serum or Plasma 0.8 MG/DL 0.7 - 1.5 [facility] BUN/CREAT 20 8 - 27 [facility] al Protein [Mass/volume] in Serum or Plasma 7.3 G/DL 6.3 - 8.2 [facility] Albumin [Mass/volume] in Serum or Plasma 4.4 G/DL 3.9 - 5.0 [facility] Globulin [Mass/volume] in Serum by calculation 2.9 GM/DL 2.4 - 3.2 [facility] A/G RATIO 1.5 0.8 - 2.0 [facility] Calcium [Mass/volume] in Serum or Plasma 9.7 MG/DL 8.4 - 10.2 [facility] Bilirubin.total [Mass/volume] in Serum or Plasma 0.7 MG/DL 0.2 - 1.3 [facility] Alkaline phosphatase [Enzymatic activity/volume] in Serum or Plasma 52 U/L 38 - 126 [facility] Aspartate aminotransferase [Enzymatic activity/volume] in Serum or Plasma 21 U/L 5 - 40 [facility] Alanine aminotransferase [Enzymatic activity/volume] in Seru m or Plasma 18 U/L 7 - 56 [facility] Anion gap 3 in Serum or Plasma 15.0 mmol/L 8.0 - 16.0 [facility] AGE 68 yrs [facility] Hospit al NON-AA GFR >60 mL/min [facility] Hosp ital AFR AMER GFR >60 [facility] p[facility] Male GFR In terprentation 20-49 [...] >32 mL/min Normal ID Date Data Source [id number] 06/10/2019 05:11:00 PM EST [facility] Name Value Range Interpretation Code Description Data Maria M rce(s) Supporting Document(s) Prothrombin time (PT) 13.2 SECONDS 11.0 - 15.5 [facility] INR in Platelet poor plasma by Coagulation assay 0.99 0.93 - 1. 23 [facility] aPTT in Blood by Coagulation assay 33.3 SECONDS 24.8 - 36.7 [facility] \\BLDo\\INR INTERPRETATION\\BLDx\\ Therapeutic range for Coumadin and related oral anticoagulants. - International Normalized Ratio (INR): 2.0 - 3.0 for Venous Thrombosis, Pulmonary Embolus, Tissue heart valves, Acute [place] Atrial Fibrillation, Valvular heart disease and recurrent [...] complet ed Never Smoked A Pipe [facility] ([facility]) Vital Signs ID Date Data Source [...] Body temperature 96.8 [degF] 96.8 [degF] [facility] ([facility]) Body surface area Derived from formula 1.77 m2 1.77 m2 [facility] ([facility]) Body mass index (BMI) [Ratio] 34.6 kg/m2 34.6 k g/m2 [facility] ([facility]) Body height 60 [in_i] 60 [in_i] [facility] ([facility]) 5'0" Body weight 80.457 kg 80.457 kg [facility] ([facility]) Body weight 177.38 [lb_av] 177.38 [lb_av] [facility] T ([facility]) Oxygen saturation in Arterial blood by Pulse oximetry 96 % 96 % [facility] ([facility]) Respiratory rate 18 /min 18 /min [facility] ( [facility]) Body temperature 97.0 [degF] 97.0 [degF] [facility] ([facility]) Heart rate 96 /min 96 /min [facility] ([facility]) Diastolic blood pressure 68 mm[Hg] 68 mm[Hg] [facility] ([facility]) Systolic blood pressure 114 mm[Hg] 114 mm[Hg] M [facility] ([facility]) Body surface area Derived from formula 1.79 m2 1.79 m2 [facility] ([facility]) Body mass index (BMI) [Ratio] 35.4 kg/m2 35.4 k g/m2 [facility] ([facility]) Body height 60 [in_i] 60 [in_i] [facility] ([facility]) 5'0" Body weight 82.158 kg 82.158 kg [facility] ([facility]) Body weight 181.12 [lb_av] 181.12 [lb_av] [facility] T ([facility]) Oxygen saturation in Arterial blood by Pulse oximetry 98 % 98 % [facility] Respiratory rate 18 /min 18 /min [facility] ( [facility]) Body temperature 97.2 [degF] 97.2 [degF] [facility] ([facility]) Heart rate 92 /min 92 /min [facility] Diastolic blood pressure 72 mm[Hg] 72 mm[Hg] [facility] ([facility]) Systolic blood pressure 120 mm[Hg] 120 mm[Hg] M [facility] ([facility]) Body surface area 1.79 m2 1.79 m2 [facility] ([facility]) Body surface area 1.85 m2 1.85 m2 [facility] ([facility]) Body mass index (BMI) [Ratio] 38.1 kg/m2 38.1 k g/m2 [facility] ([facility]) Body height 60 [in_i] 60 [in_i] [facility] ([facility]) 5'0" Body weight 88.452 kg 88.452 kg [facility] ([facility]) Body weight 195.00 [lb_av] 195.00 [lb_av] [facility] T ([facility]) Oxygen saturation in Arterial blood by Pulse oximetry 97 % 97 % [facility] Respiratory rate 18 /min 18 /min [facility] ( [facility]) Body temperature 98.7 [degF] 98.7 [degF] [facility] ([facility]) Heart rate 90 /min 90 /min [facility] ([facility]) Diastolic blood pressure 72 mm[Hg] 72 mm[Hg] [facility] ([facility]) Systolic blood pressure 120 mm[Hg] 120 mm[Hg] [facility] Systolic blood pressure 140 mm[Hg] 140 mm[Hg] [facility] Body surface area 1.85 m2 1.85 m2 [facility] ([facility]) Body mass index (BMI) [Ratio] 38.1 kg/m2 38.1 k g/m2 [facility] ([facility]) Body height 60 [in_i] 60 [in_i] [facility] ([facility]) 5'0" Body weight 88.565 kg 88.565 kg [facility] ([facility]) Body weight 195.25 [lb_av] 195.25 [lb_av] [facility] T ([facility]) Oxygen saturation in Arterial blood by Pulse oximetry 98 % 98 % [facility] ([facility]) Respiratory rate 16 /min 16 /min [facility] ( [facility]) Body temperature 97.4 [degF] 97.4 [degF] [facility] ([facility]) Heart rate 86 /min 86 /min [facility] ([facility]) Diastolic blood pressure 88 mm[Hg] 88 mm[Hg] [facility] ([facility]) Body weight 190.00 [lb_av] 190.00 [lb_av] [facility] ([facility]) Oxygen saturation in Arterial blood by Pulse oximetry 98 % 98 % [facility] ([facility]) Respiratory rate 16 /min 16 /min [facility] ( [facility]) Body temperature 98.2 [degF] 98.2 [degF] [facility] ([facility]) Heart rate 96 /min 96 /min [facility] ([facility]) Diastolic blood pressure 74 mm[Hg] 74 mm[Hg] [facility] ([facility]) Systolic blood pressure 126 mm[Hg] 126 mm[Hg] M [facility] ([facility]) Body surface area 1.83 m2 1.83 m2 [facility] ([facility]) Body mass index (BMI) [Ratio] 37.1 kg/m2 37.1 k g/m2 [facility] ([facility]) Body height 60 [in_i] 60 [in_i] [facility] ([facility]) 5'0" Body weight 86.184 kg 86.184 kg [facility] ([facility]) Body temperature 98.2 [degF] 98.2 [degF] [facility] ([facility] ) Body surface area 1.83 m2 1.83 m2 [facility] ([facility]) Body mass index (BMI) [Ratio] 37.3 kg/m2 37.3 k g/m2 [facility]) Body height 60 [in_i] 60 [in_i] [facility] ([facility]) 5'0" Body weight 86.638 kg 86.638 kg [facility] ([facility]) Body weight 191.00 [lb_av] 191.00 [lb_av] [facility] T ([facility]) Oxygen saturation in Arterial blood by Pulse oximetry 98 % 98 % [facility] ([facility]) Respiratory rate 18 /min 18 /min [facility] ( [facility]) Body temperature 98.1 [degF] 98.1 [degF] [facility] ([facility]) Heart rate 94 /min 94 /min [facility] ([facility]) Diastolic blood pressure 70 mm[Hg] 70 mm[Hg] [facility] ([facility]) Systolic blood pressure 128 mm[Hg] 128 mm[Hg] M [facility] ([facility])
[2020-06-30 03:51] VITALS: BP 146/89
[2020-06-30] MEDS ORDERED: ROBA750T4 PO (04:01)
[2020-07-01] MEDS ORDERED: FAMO1TAB11 PO (12:50)
[2020-07-01] MEDS ORDERED: FURO40TA2 PO (12:50)
[2020-07-01] MEDS ORDERED: ZOCO80TA PO (12:50)
[2020-07-01] MEDS ORDERED: MONT10TA10 PO (12:50)
[2020-07-01] MEDS ORDERED: POTA20TA6 PO (12:50)
[2020-07-01] MEDS ORDERED: GABA-282 PO (12:50)
[2020-07-01] MEDS ORDERED: FENO145T7 PO (12:50)
[2020-07-01] MEDS ORDERED: IBUP80TA PO (12:50)
== END 2020-06-30 04:16 | disposition home or self-care (01) ==
LOC: M ED 00:21
DX: M51.26 Other intervertebral disc displacement, lumbar region (principal); M51.16 Intervertebral disc disorders with radiculopathy, lumbar region; M48.061 Spinal stenosis, lumbar region without neurogenic claudication; M47.26 Other spondylosis with radiculopathy, lumbar region; E11.9 Type 2 diabetes mellitus without complications; I10 Essential (primary) hypertension; E78.5 Hyperlipidemia, unspecified; D64.9 Anemia, unspecified; G47.33 Obstructive sleep apnea (adult) (pediatric); Z79.82 Long term (current) use of aspirin; Z79.899 Other long term (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

== ENCOUNTER 2020-07-01 11:01 | Inpatient (IN) | payer MEDICARE ==
[~2020-07-01] VITALS: Ht 162.6 cm; Wt 81.2 kg
[~2020-07-01 11:01] MED LIST changes: +FAMO20TA PO; +FENO145T7 PO; +FURO40TA2 PO; +IBUP80TA PO; +ROBA750T4 PO
--- OUTSIDE RECORDS SUMMARY | 2020-07-01 11:43 | CCD ---
Author Author [facility] Organization [facility] Address Unknown Phone Unavailable Care Team Providers Care Clerk Operator Name Role Phone Ynes LAZO DPM Unavailable [...] [facility]EL [facility] Unavailable Unavailable JOHN, J AKREL [facility] Unavailable Unavailable JOHN, J KAREL [...] Unavailable Unavailable Rangel Salazar MD Unavailable Unavailable Rangle Salazar MD Unavailable Unavailable Rangel Salazar MD [...] Unavailable Unavailable Rangel Salazar MD Unavailable Unavailable Nevills, C Griselda FUSING MACHINE TENDER Unavailable Unavailable Nevills, C Griselda FUSING MACHINE TENDER Unavailable Unavailable Nevills, C Griselda FUSING MACHINE TENDER Unavailable Unavailable Nevills, C Griselda FUSING MACHINE TENDER Unavailable Unavailable Nevills, C Griselda FUSING MACHINE TENDER Unavailable Unavailable Nevills, C Griselda FUSING MACHINE TENDER Unavailable Unavailable Nevills, C Griselda FUSING MACHINE TENDER Unavailable Unavailable Nevills, C Griselda FUSING MACHINE TENDER Unavailable Unavailable Nevills, C Griselda FUSING MACHINE TENDER Unavailable Unavailable Nevills, C Griselda FUSING MACHINE TENDER Unavailable Unavailable Nevills, C Griselda FUSING MACHINE TENDER Unavailable Unavailable Nevills, C Griselda FUSING MACHINE TENDER Unavailable Unavailable Nevills, C Griselda FUSING MACHINE TENDER Unavailable Unavailable Nevills, C Griselda FUSING MACHINE TENDER Unavailable Unavailable Nevills, C Griselda FUSING MACHINE TENDER Unavailable Unavailable Nevills, C Griselda FUSING MACHINE TENDER Unavailable Unavailable Nevills, C Griselda FUSING MACHINE TENDER Unavailable Unavailable Wei, Johana Angie ANP-BC Unavailable [...] Johana Angie ANP-BC Unavailable Unavailable Wei, Johana Agnie ANP-BC Unavailable Unavailable Wei, Johana Angie ANP-BC [...] RENETTA CRUZ MD Unavailable Unavailable MARKWITH, RENETTA DOBBINS Unavailable Unavailable MARKWITH, RENETTA DOBBINS Unavailable Unavailable MARKWITH, RENETTA DOBBINS Unavailable Unavailable MARKWITH, RENETTA DOBBINS Unavailable Unavailable MARKWITH, RENETTA DOBBINS Unavailable Unavailable MARKWITH, RENETTA MD Unavailable Unavailable MARKWITH, RENETTA DOBBINS Unavailable Unavailable MARKWITH, RENETTA DOBBINS Unavailable Unavailable MARKWITH, RENETTA DOBBINS Unavailable Unavailable MARKWITH, RENETTA DOBBINS Unavailable Unavailable MARKWITH, RENETTA DOBBINS Unavailable Unavailable MARKWITH, RENETTA DOBBINS Unavailable Unavailable MARKWITH, RENETTA DOBBINS Unavailable Unavailable MARKWITH, RENETTA MD Unavailable Unavailable MARKWITH, RENETTA MD Unavailable Unavailable MARKWITH, RENETTA DOBBINS Unavailable Unavailable MARKWITH, RENETTA MD Unavailable Unavailable MARKWITH, RENETTA MD Unavailable Unavailable MARKWITH, RENETTA MD Unavailable Unavailable MARKWITH, RENETTA MD Unavailable Unavailable MARKWITH, RENETTA MD Unavailable Unavailable MARKWITH, RENETTA MD Unavailable Unavailable MARKWITH, RENETTA MD Unavailable Unavailable MARKWITH, RENETTA DOBBINS Unavailable Unavailable MARKWITH, RENETTA DOBBINS Unavailable Unavailable MARKWITH, RENETTA DOBBINS Unavailable Unavailable MARKWITH, RENETTA DOBBINS Unavailable Unavailable MARKWITH, RENETTA DOBBINS Unavailable Unavailable MARKWITH, RENETTA DOBBINS Unavailable Unavailable MARKWITH, RENETTA DOBBINS Unavailable Unavailable MARKWITH, RENETTA DOBBINS Unavailable Unavailable MARKWITH, RENETTA DOBBINS Unavailable Unavailable MARKWITH, RENETTA DOBBINS Unavailable Unavailable MARKWITH, RENETTA DOBBINS Unavailable Unavailable MARKWITH, RENETTA DOBBINS Unavailable Unavailable MARKWITH, RENETTA DOBBINS Unavailable Unavailable MARKWITH, RENETTA DOBBINS Unavailable Unavailable MARKWITH, RENETTA DOBBINS Unavailable Unavailable MARKWITH, RENETTA DOBBINS Unavailable Unavailable Re-disclosure Warning The records that [...] is protected by Article 27-F of the [facility] Public Health law. If you continue you may have access to information: Regarding HIV / AIDS; Provided by facilities licensed or operated by the [facility] Office of Mental Health; or Provided by the [facility] Office for People With Developmental Disabilities. If such information is present, then the following [facility] mandated warning applies: This information has [...] law may result in a fine or snf sentence or both. A general authorization for the release of medical or other information is NOT sufficient authorization for further disc losure. Family History Family Member Name Family Member Gender Family Member Status Date o f Status Description Data Source(s) Unknown Male Problem [facility] ([facility] Encounters Encounter Providers Location Date Indications Data Source(s ) Outpatient Attender: Griselda Ruelas NP 07/01 09:48:00 AM EST - 07/01/2020 09:48:00 AM [facility] Office Visit Attender: RENETTA LAZO [facility] Office 05/20 02:00:00 PM EST [facility] Outpatient Attender: Angie URBAN 03/21 01:50:00 PM EST - 04/11/2020 01:50:00 PM [facility] Outpatient Attender: Angie URBAN Family [facility] 03/21 12:40:00 PM EST [facility] ([facility] Outpatient Attender: RENETTA CRUZ MD Physical Therapy 09:00:00 AM EDT [facility] ([facility]) Outpatient Attender: Angie URBAN 12/19 01:48:00 PM EDT - 01/07/2020 01:48:00 PM EDT [facility] Outpatient Attender: RENETTA CRUZ MD Physical Therapy 03:30:00 PM EDT [facility] ([facility]) Outpatient Attender: KAREL LOPEZ [facility] 12/01/2019 03:48:00 PM EDT - 12/01/2019 03:48:00 PM EDT [facility] Outpatient Attender: Angie URBAN 09/18 01:32:00 PM EDT - 10/07/2019 01:32:00 PM EDT [facility] Outpatient Attender: RENETTA CRUZ MD Physical Therapy 02:30:00 PM EDT [facility] ([facility]) Outpatient Attender: Angie URBAN 08/19 01:29:00 PM EDT - 09/16/2019 01:29:00 PM EDT [facility] Outpatient Attender: Wei Salazar MD FP 2019 08:01:07 PM EDT [facility] Outpatient Referrer: RENETTA RCUZ MD 08/12/2019 08:27:0 0 AM [facility] 10:56:00 AM EST - 07/02/2019 10:56:00 AM EST [facility] Outpatient Attender: Angie URBAN Family Practice 06/20 09:40:00 AM EST [facility] ([facility] Outpatient Referrer: Lola MUNOZ 06/30/2019 01:30:00 PM EST [facility] Outpatient Attender: Angie URBAN 05/21 10:54:00 AM EST - 06/17/2019 10:54:00 AM EST [facility] Outpatient Attender: Angie URBNA 05/21 01:50:00 PM EST - 06/09/2019 01:50:00 PM EST [facility] Outpatient Attender: Angie URBAN Family Practice 05/21 12:40:00 PM EST [facility] ([facility]) Outpatient Attender: Wei Salazar MD 05/29/2019 08:01:01 PM EST [facility] Medications Medication Brand Name Start Date Product Form Dose Route Admi nistrative Instructions Pharmacy Instructions Status Indications Reaction Description Data Source(s) pioglitazone 30 MG Oral Tablet Pioglitazone HCL 01/14/2020 12:00:00 A M EDT ORAL active [facility] ([facility]) Potassium Chloride 20 MEQ Extended Release Oral Tablet Potas sium Chloride ER 01/13/2020 12:00:00 AM EDT ORAL active [facility] ([facility]) Fenofibrate 145 MG Oral Tablet Fenofibrate 01/07/2020 12:00:00 AM EDT ORAL active [facility] ([facility]) Linagliptin 5 MG Oral Tablet [Tradjenta] Tradjenta 01/07/2020 12 :00:00 AM EDT ORAL completed [facility] ([facility]) Clotrimazole 10 MG/ML Topical Cream Clotrimazole Anti-Fungal 10/07/2019 12:00:00 AM EDT active [facility] Furosemide 40 MG Oral Tablet Furosemide 09/16/2019 12:00:00 AM EDT ORAL active [facility] ([facility]) Ibuprofen 800 MG Oral Tablet Ibuprofen 07/28/2019 12:00:00 AM EDT ORAL active [facility] ([facility]) Onetouch Ultra 2 06/29/2019 12:00:00 AM EST a ctive [facility] ([facility]) Blood Glucose Test 06/24/2019 12:00:00 AM EST active [facility] ([facility]) Lancets 06/24/2019 12:00:00 AM EST active [facility] ([facility]) Reanna Montgomery 06/16/2019 12:00:00 AM EST completed [facility] ([facility]) 3 ML Insulin Glargine 100 UNT/ML Pen Injector [Lantus] Lantu s Solostar 06/16/2019 12:00:00 AM EST completed [facility] ([facility]) Morphine Sulfate 15 MG Extended Release Oral Tablet Morphine Sulfate ER 06/15/2019 12:00:00 AM EST ORAL active [facility] ([facility]) Oxycodone Hydrochloride 15 MG Oral Tablet Oxycodone HCL 06/15/2019 12:00:00 AM EST ORAL active [facility] ( [facility]) Ibuprofen 600 MG Oral Tablet Ibuprofen 06/15/2019 12:00:00 AM EST ORAL active [facility] ([facility] sitagliptin 100 MG Oral Tablet [Januvia] Januvia 06/09/2019 12:00: 00 AM EST ORAL active [facility] ([facility]) Famotidine 20 MG Oral Tablet Famotidine 06/09/2019 12:00:00 AM EST ORAL active [facility] ([facility]) Insurance Providers Payer name Policy type / Coverage type Policy ID Covered libertarian ID Covered libertarian's relationship to martinez Policy Martinez Plan Information WELLCARE [id number] SP [id number] WELLCARE [id number] SP [id number] [place] [id number] MEDICARE COMPLETE [id number] SP [id number] WELLCARE O [id number] S [id number] MEDICARE COMPLETE-UHC O [id number] S [id number] [place] [id number] 18 [id number] [facility] [place] [id number] 18 [id number] [facility] Secure Horizons P [id number] S [id number] Medicare Wrap S [id number] S [id number] UNITED HEALTHCARE O [id number] S [id number] MEDICARE C [id number] S [id number] A MEDICARE COMPLETE [id number] SP [id number] MEDICARE COMPLETE-UHC O [id number] S [id number] [place] [id number] 18 [id number] [facility] (Medicare) Commercial [id number] Self [id number] MEDICARE COMPLETE [id number] SP [id number] MEDICARE COMPLETE [id number] SP [id number] SELF PAY UNAVAILABLE SP UNAVAILA BLE [employer] Commercial [id number] Self [id number] [employer] Secure Horizons P [id number] S [id number] MEDICARE COMPLETE [id number] SP [id number] MEDICARE COMPLETE-[facility] O [id number] S [id number] [employer] (Medicare) Commercial Self Medicare S [id number] S [id number] A [employer] Rating Agency HEALTHCARE O [id number] S [id number] Unitedhealthcare Secure Horizons P [id number] S [id number] [facility] S [id number] S [id number] Self Pay S [id number] S [id number] Medicare O UNAVAILABLE O UNAVAILA BLE Sliding Fee Scale O [id number] S [id number] MEDICARE [id number] SP [id number] A Problems, Conditions, and Diagnoses Code Display Name Description Problem Type Effective Dates Data Source(s) 227627504 Taking medication Taking medication Problem 01/06 12:00:00 AM EDT [facility] ([facility]) [id number] Disorder of bursa of shoulder region Dis order of bursa of shoulder region Problem 01/07/2020 12:00:00 AM EDT [facility] ([facility]) [id number] Shoulder joint pain Shoulder joint pain Problem 0 01/07/2020 12:00:00 AM EDT [facility] ([facility]) [id number] Essential hypertension Essential hypertension Problem 01/07/2020 12:00:00 AM EDT [facility] ([facility]) [id number] Type II diabetes mellitus uncontrolled T ype II diabetes mellitus uncontrolled Problem 01/07/2020 12:00:00 AM EDT [facility] ([facility]) [id number] Onychomycosis Onychomycosis Problem 01/07/2020 12:00:00 AM EDT [facility] ([facility]) Corns and callosities Corns and callosities Problem 12/01/2019 12:00:00 AM EDT [facility] ([facility]) 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 Problem 12/01/2019 12:00:00 AM EDT [facility] ([facility]) [id number] Pain in limb Pain in limb Problem 12/01/2019 12:00:00 A M EDT [facility] ([facility]) 61349038 Dystrophia unguium Dystrophia unguium Problem 12:00:00 AM EDT [facility] ([facility]) [id number] Ingrowing nail Ingrowing nail Problem 12/01/2019 12:00: 00 AM EDT [facility] ([facility]) [id number] Pure hypercholesterolemia Pure hypercholesterolemia Pr oblem 07/30/2019 12:00:00 AM EDT [facility] ([facility] L600 Ingrowing nail Ingrowing nail Diagnosis 12/01/2019 03:48: 00 PM EDT [facility] [id number] Pain in left foot Pain in left foot Diagnosis 12/01/2019 03:48:00 PM EDT [facility] L84 Corns and callosities Corns and callosities Diagnosis 12/01/2019 03:48:00 PM EDT [facility] L603 Nail dystrophy Nail dystrophy Diagnosis 12/01/2019 03:48: 00 PM EDT [facility] E1149 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 Diagnosis 12/01/2019 03:48:00 PM EDT [facility] F47185 Pain in right shoulder Pain in right shoulder Diagnosi s 09/16/2019 01:29:00 PM EDT [facility] I10 Essential (primary) hypertension Essential (primary) h ypertension Diagnosis 09/16/2019 01:29:00 PM EDT [facility] E1165 Type 2 diabetes mellitus with hyperglyce jeanine Type 2 diabetes mellitus with hyperglycemia Diagnosis 09/16/2019 01:29:00 PM EDT [facility] R99 Ill-defined and unknown cause of mortali ty Ill-defined and unknown cause of mortality Diagnosis 06/17/2019 10:54:00 AM [facility] A43620 Other terminal manager (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 O ther terminal manager (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 Diagnosis 06/09/2019 01:50:00 PM [facility] [id number] Encounter for other preprocedural examin ation Encounter for other preprocedural examination Diagnosis 06/09/2019 01:50:[address] [facility] V17225 Unspecified rotator cuff tea r or rupture of right shoulder, not specified as traumatic Unspecified rotator cuff tear or rupture of right shoulder, not specified as traumatic Diagnosis 06/09/2019 01:50:00 PM EST [facility] Surgeries/Procedures Procedure Description Date Indications Data Source(s) PARING/CUTTING BENIGN HYPERKERATOTIC LESION 1 06/02/19 12:00:00 AM EST [facility] ([facility] DEBRIDEMENT NAIL ANY METHOD /> 06/02/2020 12:00:00 AM EST [facility] ([facility] RADEX SHOULDER COMPLETE MINIMUM 2 VIEWS 05/23/2020 12: 00:00 AM EST [facility] ([facility]) THERAPEUTIC PX 1/> AREAS EACH 15 MIN EXERCISES 12:00:00 AM EDT [facility] ([facility] THERAPEUTIC PX 1/> AREAS EACH 15 MIN EXERCISES 12:00:00 AM EDT [facility] ([facility] THERAPEUTIC PX 1/> AREAS EACH 15 MIN EXERCISES 12:00:00 AM EDT [facility] ([facility]) THERAPEUTIC PX 1/> AREAS EACH 15 MIN EXERCISES 12:00:00 AM EDT [facility] ([facility]) THERAPEUTIC PX 1/> AREAS EACH 15 MIN EXERCISES 12:00:00 AM EDT [facility] ([facility] THERAPEUTIC PX 1/> AREAS EACH 15 MIN EXERCISES 12:00:00 AM EDT [facility] ([facility] THERAPEUTIC PX 1/> AREAS EACH 15 MIN EXERCISES 12:00:00 AM EDT [facility] ([facility]) THERAPEUTIC PX 1/> AREAS EACH 15 MIN EXERCISES 12:00:00 AM EDT [facility] ([facility]) Pare Hyperkeratotic Lesion, 2-4 12/01/2019 12:00:00 AM EDT [facility] ([facility]) THERAPEUTIC PX 1/> AREAS EACH 15 MIN EXERCISES 12:00:00 AM EDT [facility] ([facility]) THERAPEUTIC PX 1/> AREAS EACH 15 MIN EXERCISES 12:00:00 AM EDT [facility] ([facility]) THERAPEUTIC PX 1/> AREAS EACH 15 MIN EXERCISES 12:00:00 AM EDT [facility] ([facility]) THERAPEUTIC PX 1/> AREAS EACH 15 MIN EXERCISES 12:00:00 AM EDT [facility] ([facility]) THERAPEUTIC PX 1/> AREAS EACH 15 MIN EXERCISES 12:00:00 AM EDT [facility] ([facility]) THERAPEUTIC PX 1/> AREAS EACH 15 MIN EXERCISES 12:00:00 AM EDT [facility] ([facility]) THERAPEUTIC PX 1/> AREAS EACH 15 MIN EXERCISES 12:00:00 AM EDT [facility] ([facility]) THERAPEUTIC PX 1/> AREAS EACH 15 MIN EXERCISES 12:00:00 AM EDT [facility] ([facility]) THERAPEUTIC PX 1/> AREAS EACH 15 MIN EXERCISES 12:00:00 AM EDT [facility] ([facility]) THERAPEUTIC PX 1/> AREAS EACH 15 MIN EXERCISES 12:00:00 AM EDT [facility] ([facility]) MANUAL THERAPY TQS 1/> REGIONS EACH 15 MINUTES 12:00:00 AM EDT [facility] ([facility]) THERAPEUTIC PX 1/> AREAS EACH 15 MIN EXERCISES 12:00:00 AM EDT [facility] ([facility]) THERAPEUTIC PX 1/> AREAS EACH 15 MIN EXERCISES 12:00:00 AM EDT [facility] ([facility]) MANUAL THERAPY TQS 1/> REGIONS EACH 15 MINUTES 12:00:00 AM EDT [facility] ([facility]) THERAPEUTIC PX 1/> AREAS EACH 15 MIN EXERCISES 12:00:00 AM EDT [facility] ([facility]) MANUAL THERAPY TQS 1/> REGIONS EACH 15 MINUTES 12:00:00 AM EDT [facility] ([facility] ) [place] 10/13/2019 12:00:00 AM EDT [facility] ([facility] ) THERAPEUTIC PX 1/> AREAS EACH 15 MIN EXERCISES 12:00:00 AM EDT [facility] ([facility] ) [place] 10/08/2019 12:00:00 AM EDT [facility] ([facility] ) THERAPEUTIC PX 1/> AREAS EACH 15 MIN EXERCISES 12:00:00 AM EDT [facility] ([facility] Admin Patient Focused Health Risk Assessment Instrument 10/07/2019 12:00:00 AM EDT [facility] ([facility]) THERAPEUTIC PX 1/> AREAS EACH 15 MIN EXERCISES 12:00:00 AM EDT [facility] ([facility] ) THERAPEUTIC PX 1/> AREAS EACH 15 MIN EXERCISES 12:00:00 AM EDT [facility] ([facility] ) THERAPEUTIC PX 1/> AREAS EACH 15 MIN EXERCISES 12:00:00 AM EDT [facility] ([facility] ) THERAPEUTIC PX 1/> AREAS EACH 15 MIN EXERCISES 12:00:00 AM EDT [facility] ([facility] ) THERAPEUTIC PX 1/> AREAS EACH 15 MIN EXERCISES 12:00:00 AM EDT [facility] ([facility] ) THERAPEUTIC PX 1/> AREAS EACH 15 MIN EXERCISES 12:00:00 AM EDT [facility] ([facility] ) THERAPEUTIC PX 1/> AREAS EACH 15 MIN EXERCISES 12:00:00 AM EDT [facility] ([facility] ) THERAPEUTIC PX 1/> AREAS EACH 15 MIN EXERCISES 12:00:00 AM EDT [facility] ([facility] ) THERAPEUTIC PX 1/> AREAS EACH 15 MIN EXERCISES 12:00:00 AM EDT [facility] ([facility] ) THERAPEUTIC PX 1/> AREAS EACH 15 MIN EXERCISES 12:00:00 AM EDT [facility] ([facility] ) THERAPEUTIC PX 1/> AREAS EACH 15 MIN EXERCISES 12:00:00 AM EDT [facility] ([facility] ) THERAPEUTIC PX 1/> AREAS EACH 15 MIN EXERCISES 12:00:00 AM EDT [facility] ([facility]) THERAPEUTIC PX 1/> AREAS EACH 15 MIN EXERCISES 12:00:00 AM EDT [facility] ([facility]) THERAPEUTIC PX 1/> AREAS EACH 15 MIN EXERCISES 12:00:00 AM EDT [facility] ([facility]) THERAPEUTIC PX 1/> AREAS EACH 15 MIN EXERCISES 12:00:00 AM EDT [facility] ([facility]) THERAPEUTIC PX 1/> AREAS EACH 15 MIN EXERCISES 12:00:00 AM EDT [facility] ([facility]) THERAPEUTIC PX 1/> AREAS EACH 15 MIN EXERCISES 12:00:00 AM EDT [facility] ([facility] ) Massage, Each 15 Minutes 08/11/2019 12:00:00 AM EDT [facility] ([facility] ) THERAPEUTIC PX 1/> AREAS EACH 15 MIN EXERCISES 12:00:00 AM EDT [facility] ([facility] ) Massage, Each 15 Minutes 08/06/2019 12:00:00 AM EDT [facility] ([facility] ) THERAPEUTIC PX 1/> AREAS EACH 15 MIN EXERCISES 12:00:00 AM EDT [facility] ([facility] ) Massage, Each 15 Minutes 08/04/2019 12:00:00 AM EDT [facility] ([facility]) THERAPEUTIC PX 1/> AREAS EACH 15 MIN EXERCISES 12:00:00 AM EDT [facility] ([facility] ) Massage, Each 15 Minutes 07/30/2019 12:00:00 AM EDT [facility] ([facility]) THERAPEUTIC PX 1/> AREAS EACH 15 MIN EXERCISES 12:00:00 AM EST [facility] ([facility] ) Massage, Each 15 Minutes 07/23/2019 12:00:00 AM EST [facility] ([facility] ) THERAPEUTIC PX 1/> AREAS EACH 15 MIN EXERCISES 12:00:00 AM EST [facility] ([facility] ) THERAPEUTIC PX 1/> AREAS EACH 15 MIN EXERCISES 020 12:00:00 AM EST [facility] ([facility]) Massage, Each 15 Minutes 07/16/2019 12:00:00 AM EST [facility] ([facility]) Physical Therapy Eval - Low Complexity 07/14/2019 12:0 0:00 AM EST [facility] ([facility]) TENODESIS LONG TENDON BICEPS 06/19/2019 12:00:00 AM ES T [facility] ([facility]) TENODESIS LONG TENDON BICEPS 06/19/2019 12:00:00 AM ES T [facility] ([facility]) Arthroscopy Shoulder Remove Loose/Foreign Body Dist Clavicul ectom 06/19/2019 12:00:00 AM EST [facility] ([facility]) Arthroscopy Shoulder Removal Loose/Foreign Body Dist Clavicu lecto 06/19/2019 12:00:00 AM EST [facility] ([facility]) SHOULDER SCOPE BONE SHAVING 06/19/2019 12:00:00 AM EST [facility] ([facility]) SHOULDER SCOPE BONE SHAVING 06/19/2019 12:00:00 AM EST [facility] ([facility]) Arthroscopy Shoulder Surgical With Rotator Cuff Repair 06/19/2019 12:00:00 AM EST [facility] ([facility]) Arthroscopy Shoulder Surgical W/Rotator Cuff Repair 06/19/2019 12:00:00 AM EST [facility] ([facility]) Results ID Date Data Source [id number] 01/06/2020 07:58:00 AM EDT [facility] ([facility]) Name Value Range Interpretation Code Description Data Maria M rce(s) Supporting Document(s) Thyrotropin [Units/volume] in Serum or Plasma 2.370 uIU/ML 0. 358-3.740 Normal (applies to non-numeric results) [facility] ([facility]) Magnesium [Mass/volume] in Serum or Plasma 1.7 mg/dL 1.8-2.4 Belo w low normal [facility] ([facility]) ID Date Data Source [id number] 01/06/2020 07:58:00 AM EDT [facility] ([facility]) Name Value Range Interpretation Code Description Data Maria M rce(s) Supporting Document(s) Triglycerides Level 272 mg/dL Above high normal [facility] ([facility]) HDL Cholesterol 31 mg/dL Below low normal [facility] ([facility]) Cholesterol Level 134 mg/dL Normal (applies to non-numeri c results) [facility] ([facility]) LDL Cholesterol 49 mg/dL Normal (applies to non-numeric results) [facility] ([facility]) Cholesterol Risk Ratio 4.322 Normal (applies to non-n umeric results) [facility] ([facility]) Non-HDL-C 103 mg/dL Normal (applies to non-numeric resul ts) [facility] ([facility]) ID Date Data Source [id number] 01/06/2020 07:58:00 AM [facility] Name Value Range Interpretation Code Description Data Maria M rce(s) Supporting Document(s) Glucose, Fasting 274 mg/dL 70-100 Above high normal [facility] ([facility]) Blood Urea Nitrogen 20 mg/dL 7-18 Above high normal [facility] ([facility]) Creatinine For GFR 1.00 mg/dL 0.55-1.30 Normal (applies to non -numeric results) [facility] Glomerular Filtration Rate 58.7 Normal (applies to n on-numeric results) [facility] ([facility]) <content>Units are mL/min/1.73 m2</content>
<content></content>
<content>Chronic Kidney Disease Staging per NKF:</content>
<content></content>
<content>Stage I & II GFR >=60 Normal to Mildly Decreased</content>
<content>Stage III GFR 30- 59 Moderately Decreased</content>
<content>Stage IV GFR 15-29 Severely Decreased</content>
<content>Stage V GFR <15 Very Little GFR Left</content>
<content>ESRD GFR <15 on SR. MEDIA MANAGER</content>
<content></content> Sodium Level 140 meq/L 136-145 Normal (applies to non-numeric res ults) [facility] Potassium Serum 3.3 meq/L 3.5-5.1 Below low normal [facility] ([facility]) Chloride Level 102 meq/L 98-107 Normal (applies to non-numeric r esults) [facility] ([facility]) Calcium Level 9.1 mg/dL 8.8-10.2 Normal (applies to non-numeric re sults) [facility] ([facility]) Carbon Dioxide Level 29 meq/L 21-32 Normal (applies to non-num delmy results) [facility] ([facility]) Anion Gap 9 meq/L 8-16 Normal (applies to non-numeric resul ts) [facility] ([facility]) Alt/SGPT 27 U/L 12-78 Normal (applies to non-numeric resul ts) [facility] ([facility]) Ast/Sgot 17 U/L 7-37 Normal (applies to non-numeric resul ts) [facility] ([facility]) Alkaline Phosphatase 54 U/L 45-117 Normal (applies to non-num delmy results) [facility] ([facility]) Albumin 3.6 GM/DL 3.2-5.2 Normal (applies to non-numeric resul ts) [facility] ([facility]) Total Protein 7.2 GM/DL 6.4-8.2 Normal (applies to non-numeric re sults) [facility] ([facility]) Bilirubin,Total 0.4 mg/dL 0.2-1.0 Normal (applies to non-numeric results) [facility] ([facility]) Albumin/Globulin Ratio 1.0 1.2-2.2 Below low normal [facility] ([facility]) ID Date Data Source [id number] 01/06/2020 07:58:00 AM EDT [facility] ([facility]) Name Value Range Interpretation Code Description Data Maria M rce(s) Supporting Document(s) Hemoglobin A1c 10.7 % Normal (applies to non-numeric r esults) [facility] ([facility]) <content>REFERENCE RANGES:</content><br/ ><content></content>
<content><=5.6% NORMAL</content>
<content>5.7-6.4% SUGGESTS IMPAIRED GLUCOSE METABOLISM/PREDIABETIC</content>
<content>>= 6.5% ABNORMAL</content>
<content></content> Estimated Average Glucose 260 mg/dL 60-110 [facility] ID Date Data Source [id number] 01/06/2020 07:58:00 AM EDT [facility] ([facility]) Name Value Range Interpretation Code Description Data Maria M rce(s) Supporting Document(s) White Blood Count 10.4 10 4.0-10.0 Above high normal [facility] ([facility]) Hematocrit 39.2 % 36.0-47.0 Normal (applies to non-numeric resul ts) [facility] ([facility]) Red Blood Count 4.61 10 4.00-5.40 Normal (applies to non-numeric results) [facility] ([facility]) Hemoglobin 13.4 g/dL 12.0-15.5 Normal (applies to non-numeric resul ts) [facility] ([facility]) Mean Corpuscular Volume 85.0 fl 80.0-96.0 Normal ( applies to non-numeric results) [facility] ([facility]) Mean Corpuscular HGB Conc 34.2 g/dL 32.0-36.5 Normal (applies to non-numeric results) [facility] ([facility]) Mean Corpuscular Hemoglobin 29.1 pg 27.0-33.0 Norm al (applies to non-numeric results) [facility] ([facility]) Platelet Count, Automated 290 10 150-450 Normal (applies to non-numeric results) [facility] ([facility]) Red Cell Distribution Width 12.8 % 11.5-14.5 Norm al (applies to non-numeric results) [facility] ([facility]) [place] % 6.0 % 0.0-5.0 Above high normal [facility] ([facility]) Neutrophils % 67.1 % 36.0-66.0 Above high normal [facility] ([facility]) Lymph % 20.2 % 24.0-44.0 Below low normal [facility] ( [facility]) Eos % 5.9 % 0.0-3.0 Above high normal [facility] ([facility]) Baso % 0.5 % 0.0-1.0 Normal (applies to non-numeric resul ts) [facility] ([facility]) Neutrophils # 7.0 10 1.5-8.5 Normal (applies to non-numeric re sults) [facility] ([facility]) Immature Granulocyte % 0.3 % 0-3.0 Normal (applies to non-n umeric results) [facility] ([facility]) Nucleated Red Blood Cell % 0.0 % 0-0 Normal (applies to n on-numeric results) [facility] ([facility]) Eos # 0.6 10 0.0-0.5 Above high normal [facility] ([facility]) [place] # 0.6 10 0.0-0.8 Normal (applies to non-numeric resul ts) [facility] ([facility]) Lymph # 2.1 10 1.5-5.0 Normal (applies to non-numeric resul ts) [facility] ([facility]) Baso # 0.1 10 0.0-0.2 Normal (applies to non-numeric resul ts) [facility] ([facility]) ID Date Data Source [id number] 10/02/2019 10:49:00 AM EDT [facility] ([facility]) Name Value Range Interpretation Code Description Data Maria M rce(s) Supporting Document(s) Thyrotropin [Units/volume] in Serum or Plasma 1.900 uIU/ML 0. 358-3.740 Normal (applies to non-numeric results) [facility] ([facility]) Magnesium [Mass/volume] in Serum or Plasma 1.8 mg/dL 1.8-2 .4 Normal (applies to non-numeric results) [facility] ([facility]) ID Date Data Source [id number] 10/02/2019 10:49:00 AM EDT [facility] ([facility]) Name Value Range Interpretation Code Description Data Maria M rce(s) Supporting Document(s) Triglycerides Level 240 mg/dL Above high normal [facility] ([facility]) HDL Cholesterol 33 mg/dL Below low normal [facility] ([facility]) Cholesterol Level 137 mg/dL Normal (applies to non-numeri c results) [facility] ([facility]) Non-HDL-C 104 mg/dL Normal (applies to non-numeric resul ts) [facility]) Cholesterol Risk Ratio 4.151 Normal (applies to non-n umeric results) [facility] ([facility]) LDL Cholesterol 56 mg/dL Normal (applies to non-numeric results) [facility]) ID Date Data Source [id number] 10/02/2019 10:49:00 AM EDT [facility] ([facility]) Name Value Range Interpretation Code Description Data Maria M rce(s) Supporting Document(s) Glucose, Fasting 265 mg/dL 70-100 Above high normal [facility] Blood Urea Nitrogen 17 mg/dL 7-18 Normal (applies to non-nume shelly results) [facility] ([facility]) Creatinine For GFR 0.92 mg/dL 0.55-1.30 Normal (applies to non -numeric results) [facility] ([facility]) Glomerular Filtration Rate Laboratory test result Normal (applies to non- numeric results) [facility] ([facility]) <content>Units are mL/min/1.73 m2</content>
<content></content>
<content>Chronic Kidney Disease Staging per NKF:</content>
<content></content>
<content>Stage I & II GFR >=60 Normal to Mildly Decreased</content>
<content>Stage III GFR 30- 59 Moderately Decreased</content>
<content>Stage IV GFR 15-29 Severely Decreased</content>
<content>Stage V GFR <15 Very Little GFR Left</content>
<content>ESRD GFR <15 on SR. MEDIA MANAGER</content>
<content></content> Potassium Serum 3.5 meq/L 3.5-5.1 Normal (applies to non-numeric results) [facility]) Sodium Level 140 meq/L 136-145 Normal (applies to non-numeric res ults) [facility] ([facility]) Chloride Level 99 meq/L 98-107 Normal (applies to non-numeric r esults) [facility] ([facility]) Calcium Level 8.7 mg/dL 8.8-10.2 Below low normal [facility] ([facility]) Anion Gap 10 meq/L 8-16 Normal (applies to non-numeric resul ts) [facility] ([facility]) Carbon Dioxide Level 31 meq/L 21-32 Normal (applies to non-num delmy results) [facility] ([facility]) Ast/Sgot 12 U/L 7-37 Normal (applies to non-numeric resul ts) [facility] ([facility]) Bilirubin,Total 0.5 mg/dL 0.2-1.0 Normal (applies to non-numeric results) [facility] ([facility]) Alt/SGPT 24 U/L 12-78 Normal (applies to non-numeric resul ts) [facility] ([facility]) Alkaline Phosphatase 52 U/L 45-117 Normal (applies to non-num delmy results) [facility] ([facility]) Albumin 3.5 GM/DL 3.2-5.2 Normal (applies to non-numeric resul ts) [facility] ([facility]) Albumin/Globulin Ratio 1.0 1.2-2.2 Below low normal [facility] Total Protein 7.0 GM/DL 6.4-8.2 Normal (applies to non-numeric re sults) [facility] ([facility]) ID Date Data Source [id number] 10/02/2019 10:49:00 AM EDT [facility]) Name Value Range Interpretation Code Description Data Maria M rce(s) Supporting Document(s) Hemoglobin A1c 10.0 % Normal (applies to non-numeric r esults) [facility]) REFERENCE RANGES: 4.5-5.6% NORMAL 5.7-6.4% SUGGESTS IMPAIRED GLUCOSE META BOLISM >= 6.5% ABNORMAL Estimated Average Glucose 240 mg/dL 60-110 Above high normal [facility] ([facility]) ID Date Data Source [id number] 10/02/2019 10:49:00 AM EDT [facility] ([facility]) Name Value Range Interpretation Code Description Data Maria M rce(s) Supporting Document(s) [place] % 6.9 % 0.0-5.0 Above high normal [facility] ([facility]) Neutrophils % 65.4 % 36.0-66.0 Normal (applies to non-numeric re sults) [facility] ([facility]) Lymph % 20.1 % 24.0-44.0 Below low normal [facility] ( [facility]) Immature Granulocyte % 0.4 % 0-3.0 Normal (applies to non-n umeric results) [facility] ([facility]) Eos % 6.6 % 0.0-3.0 Above high normal [facility] ([facility]) Baso % 0.6 % 0.0-1.0 Normal (applies to non-numeric resul ts) [facility] ([facility]) Lymph # 1.8 10 1.5-5.0 Normal (applies to non-numeric resul ts) [facility] ([facility]) [place] # 0.6 10 0.0-0.8 Normal (applies to non-numeric resul ts) [facility] ([facility]) Neutrophils # 5.9 10 1.5-8.5 Normal (applies to non-numeric re sults) [facility] ([facility]) Eos # 0.6 10 0.0-0.5 Above high normal [facility] ([facility]) Baso # 0.1 10 0.0-0.2 Normal (applies to non-numeric resul ts) [facility] ([facility]) ID Date Data Source [id number] 10/02/2019 10:49:00 AM EDT [facility] ([facility]) Name Value Range Interpretation Code Description Data Maria M rce(s) Supporting Document(s) Red Blood Count 4.51 10 4.00-5.40 Normal (applies to non-numeric results) [facility] ([facility]) Hemoglobin 12.9 g/dL 12.0-15.5 Normal (applies to non-numeric resul ts) [facility] ([facility]) White Blood Count 9.1 10 4.0-10.0 Normal (applies to non-numeri c results) [facility] ([facility]) Hematocrit 39.0 % 36.0-47.0 Normal (applies to non-numeric resul ts) [facility] ([facility]) Mean Corpuscular Hemoglobin 28.6 pg 27.0-33.0 Norm al (applies to non-numeric results) [facility] ([facility]) Mean Corpuscular Volume 86.5 fl 80.0-96.0 Normal ( applies to non-numeric results) [facility] ([facility]) Nucleated Red Blood Cell % 0.0 % 0-0 Normal (applies to n on-numeric results) [facility] ([facility]) Mean Corpuscular HGB Conc 33.1 g/dL 32.0-36.5 Normal (applies to non-numeric results) [facility] ([facility]) Red Cell Distribution Width 12.2 % 11.5-14.5 Norm al (applies to non-numeric results) [facility] ([facility]) Platelet Count, Automated 285 10 150-450 Normal (applies to non-numeric results) [facility] ([facility]) ID Date Data Source [id number] 07/28/2019 12:00:00 AM EDT [facility] Renetta Cruz MD Patient Name: CLARA [id number] [facility] Date of : 1950 89 Date of Exam: 07/28/2019LAZARO Berman [id number]#: Fax: [phone] EXAM: US EXTREMITY VEINS, UNILATERALCLINICAL [...] the procedure due to pain and decreased [id number]. ColorDoppler imaging suggested patency of the right [...] rce(s) Supporting Document(s) ID Date Data Source [id number] 06/20/2019 11:45:00 AM EST [facility] ([facility] ) Name Value Range Interpretation Code Description Data Maria M rce(s) Supporting Document(s) Glucose [Mass/volume] in Capillary blood by Glucometer 297 mg/dL 80- 115 [facility] ) ID Date Data Source [id number] 06/20/2019 07:11:00 AM EST [facility] ([facility]) Name Value Range Interpretation Code Description Data Maria M rce(s) Supporting Document(s) Glucose [Mass/volume] in Capillary blood by Glucometer 217 mg/dL 80- 115 [facility] ([facility]) ID Date Data Source [id number] 06/20/2019 06:42:00 AM EST [facility] ([facility]) Name Value Range Interpretation Code Description Data Maria M rce(s) Supporting Document(s) Troponin I.cardiac [Mass/volume] in Serum or Plasma Laboratory test result [facility]) <content>Troponin I Reference Interval f or Siemens [place] LOCI:</content>
<content></content>
<content>99th Percentile= 0.00-0.045 ng/ml</content>
<content></content>
<content>Risk Stratification:</content>
<content><= 0.10 ng/ml Decreased Risk for Adverse Clinical</content>
<content>Events.</content>
<content>0.10-1.50 ng/ml Increased Risk for Adverse Clinical</content>
<content>Events. Evaluation of additional</content>
<content>criterion and/or repeat testing in 2-6</content>
<content>hours is suggested to rule out myocardial</content>
<content>damage.</content>
<content>>= 1.50 ng/ml Indicative of Myocardial Injury.</content>
<content></content> ID Date Data Source [id number] 06/19/2019 09:43:00 PM EST [facility] ([facility]) Name Value Range Interpretation Code Description Data Maria M rce(s) Supporting Document(s) Troponin I.cardiac [Mass/volume] in Serum or Plasma Laboratory test result [facility] ([facility]) <content>Troponin I Reference Interval f or Siemens [place] LOCI:</content>
<content></content>
<content>99th Percentile= 0.00-0.045 ng/ml</content>
<content></content>
<content>Risk Stratification:</content>
<content><= 0.10 ng/ml Decreased Risk for Adverse Clinical</content>
<content>Events.</content>
<content>0.10-1.50 ng/ml Increased Risk for Adverse Clinical</content>
<content>Events. Evaluation of additional</content>
<content>criterion and/or repeat testing in 2-6</content>
<content>hours is suggested to rule out myocardial</content>
<content>damage.</content>
<content>>= 1.50 ng/ml Indicative of Myocardial Injury.</content>
<content></content> ID Date Data Source [id number] 06/19/2019 08:05:00 PM EST [facility] ([facility]) Name Value Range Interpretation Code Description Data Maria M rce(s) Supporting Document(s) Glucose [Mass/volume] in Capillary blood by Glucometer 259 mg/dL 80- 115 [facility] ([facility]) ID Date Data Source [id number] 06/19/2019 05:06:00 PM EST [facility] ([facility]) Name Value Range Interpretation Code Description Data Maria M rce(s) Supporting Document(s) Glucose [Mass/volume] in Capillary blood by Glucometer 251 mg/dL 80- 115 [facility] ([facility]) ID Date Data Source [id number] 06/19/2019 03:52:00 PM EST [facility] ([facility]) Name Value Range Interpretation Code Description Data Maria M rce(s) Supporting Document(s) Troponin I.cardiac [Mass/volume] in Serum or Plasma Laboratory test result [facility] ([facility]) <content>Troponin I Reference Interval f or Siemens [place] LOCI:</content>
<content></content>
<content>99th Percentile= 0.00-0.045 ng/ml</content>
<content></content>
<content>Risk Stratification:</content>
<content><= 0.10 ng/ml Decreased Risk for Adverse Clinical</content>
<content>Events.</content>
<content>0.10-1.50 ng/ml Increased Risk for Adverse Clinical</content>
<content>Events. Evaluation of additional</content>
<content>criterion and/or repeat testing in 2-6</content>
<content>hours is suggested to rule out myocardial</content>
<content>damage.</content>
<content>>= 1.50 ng/ml Indicative of Myocardial Injury.</content>
<content></content> ID Date Data Source [id number] 06/19/2019 03:52:00 PM EST [facility] ([facility]) Name Value Range Interpretation Code Description Data Maria M rce(s) Supporting Document(s) Glucose, Fasting 294 mg/dL 70-100 [facility] ([facility]) Creatinine For GFR 1.08 mg/dL 0.55-1.30 [facility] ([facility]) Blood Urea Nitrogen 20 mg/dL 7-18 [facility] ([facility]) Sodium Level 138 meq/L 136-145 [facility] ([facility]) Glomerular Filtration Rate 53.9 [facility] ([facility]) <content>Units are mL/min/1.73 m2</content>
<content></content>
<content>Chronic Kidney Disease Staging per NKF:</content>
<content></content>
<content>Stage I & II GFR >=60 Normal to Mildly Decreased</content>
<content>Stage III GFR 30- 59 Moderately Decreased</content>
<content>Stage IV GFR 15-29 Severely Decreased</content>
<content>Stage V GFR <15 Very Little GFR Left</content>
<content>ESRD GFR <15 on SR. MEDIA MANAGER</content>
<content></content> Chloride Level 103 meq/L 98-107 [facility] ([facility]) Carbon Dioxide Level 24 meq/L 21-32 [facility] ([facility]) Potassium Serum 3.2 meq/L 3.5-5.1 [facility] ([facility]) Calcium Level 8.9 mg/dL 8.8-10.2 [facility] ([facility]) Anion Gap 11 meq/L 8-16 [facility] ID Date Data Source [id number] 06/19/2019 03:52:00 PM EST [facility] ([facility]) Name Value Range Interpretation Code Description Data Maria M rce(s) Supporting Document(s) CPK Creatine Phosphokinase 176 U/L 26-192 [facility] ([facility]) CK-MB Value Mass 2.8 ng/mL [facility] ([facility]) MB/CK Relative Index 1.59 [facility] ([facility]) <content>DIAGNOSIS CRITERIA</content>
<content>MMB ng/ml Relative Index (RI)</content>
<content>NON-AMI < or = 5 N/A</content>
<content>ATKINSON ZONE > 5 < or = 4</content>
<content>AMI > 5 > 4</content>
<content></content> ID Date Data Source [id number] 06/19/2019 03:52:00 PM EST [facility] ([facility]) Name Value Range Interpretation Code Description Data Maria M rce(s) Supporting Document(s) Red Blood Count 4.95 10 4.00-5.40 [facility] ([facility]) Hematocrit 44.0 % 36.0-47.0 [facility] ([facility]) White Blood Count 11.4 10 4.0-10.0 [facility] ([facility] ) Hemoglobin 14.2 g/dL 12.0-15.5 [facility] ([facility]) Mean Corpuscular HGB Conc 32.3 g/dL 32.0-36.5 [facility] ([facility]) Mean Corpuscular Hemoglobin 28.7 pg 27.0-33.0 [facility] ([facility]) Mean Corpuscular Volume 88.9 fl 80.0-96.0 [facility] ([facility]) Platelet Count, Automated 304 10 150-450 [facility] ([facility]) Red Cell Distribution Width 12.0 % 11.5-14.5 [facility] ([facility]) Nucleated Red Blood Cell % 0.0 % 0-0 [facility] ([facility]) ID Date Data Source [id number] 06/19/2019 02:58:00 PM EST [facility] ([facility]) Name Value Range Interpretation Code Description Data Maria M rce(s) Supporting Document(s) Glucose [Mass/volume] in Capillary blood by Glucometer 315 mg/dL 80- 115 [facility] ([facility]) ID Date Data Source [id number] 06/19/2019 01:01:00 PM EST [facility] ([facility]) Name Value Range Interpretation Code Description Data Maria M rce(s) Supporting Document(s) Surgical pathology study Laboratory test result [facility] ([facility]) FINAL DIAGNOSIS Right biceps proximal tendon: Portion of benign tendon without significant pathologic findings. 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 Plate Glass Grinder sections submitted in one cassette. -MS 06/22/2019 - 1306 Signed KIP ARAUZ MD 06/23/2019 1326 ID Date Data Source [id number] 06/19/2019 09:28:00 AM EST [facility] ([facility]) Name Value Range Interpretation Code Description Data Maria M rce(s) Supporting Document(s) Glucose [Mass/volume] in Capillary blood by Glucometer 243 mg/dL 80- 115 [facility] ([facility]) ID Date Data Source [id number] 06/10/2019 05:12:00 PM [facility] Name Value Range Interpretation Code Description Data Maria M rce(s) Supporting Document(s) Prothrombin time (PT) 13.2 SECONDS 11.0 - 15.5 [facility] INR in Platelet poor plasma by Coagulation assay 0.99 0.93 - 1. 23 [facility] \\BLDo\\INR INTERPRETATION\\BLDx\\ Therapeutic range for Coumadin and related oral anticoagulants. - International Normalized Ratio (INR): 2.0 - 3.0 for Venous Thrombosis, Pulmonary Embolus, Tissue heart valves, Acute LA, Atrial Fibrillation, Valvular heart disease and recurrent Systemic Embolism. -International Normalized Ratio (INR): 2.5 - 3.5 for Mechanical Prosthetic valve. ID Date Data Source [id number] 06/09/2019 02:40:00 PM EST [facility] ([facility]) Name Value Range Interpretation Code Description Data Maria M rce(s) Supporting Document(s) Hemoglobin A1c/Hemoglobin.total in Blood 11.0 % 4.4-6.1 Above high normal [facility] ([facility]) .~.~<DG1.3.1>Z01.812</DG1.3.1><DG1.3.1>E11.65</DG1.3.1><DG1.3.1>Z79.899</DG1.3.1 ><DG Is patient fasting? N~.~.~<DG1.3.1>Z01.812</DG1.3.1><DG1.3.1>E11.65</DG1.3.1><DG1.3.1>Z79.899</D .~.~<DG1.3.1> Z01.812</DG1.3.1><DG1.3.1>E11.65</DG1.3.1><DG1.3.1>Z79.899</DG1.3.1><DG .~.~<DG1.3.1>Z01.812</DG1.3.1><DG1.3.1>E11.65</DG1.3.1><DG1.3.1>Z79.899</DG1.3.1 ><DG ID Date Data Source [id number] 06/09/2019 02:40:00 PM EST [facility] ([facility]) Name Value Range Interpretation Code Description Data Maria M rce(s) Supporting Document(s) Inr 0.99 0.93-1.23 [facility] ([facility]) .~.~<DG1.3.1>Z01.812</DG1.3.1><DG1.3.1>E11.65</DG1.3.1><DG1.3.1>Z79.899</DG1.3.1 ><DG Is patient fasting? N~.~.~<DG1.3.1>Z01.812</DG1.3.1><DG1.3.1>E11.65</DG1.3.1><DG1.3.1>Z79.899</D .~.~<DG1.3.1> Z01.812</DG1.3.1><DG1.3.1>E11.65</DG1.3.1><DG1.3.1>Z79.899</DG1.3.1><DG .~.~<DG1.3.1>Z01.812</DG1.3.1><DG1.3.1>E11.65</DG1.3.1><DG1.3.1>Z79.899</DG1.3.1 ><DG Protime 13.2 s 11.0-15.5 [facility] ([facility]) .~.~<DG1.3.1>Z01.812</DG1.3.1><DG1.3.1>E11.65</DG1.3.1><DG1.3.1>Z79.899</DG1.3.1 ><DG Is patient fasting? N~.~.~<DG1.3.1>Z01.812</DG1.3.1><DG1.3.1>E11.65</DG1.3.1><DG1.3.1>Z79.899</D .~.~<DG1.3.1> Z01.812</DG1.3.1><DG1.3.1>E11.65</DG1.3.1><DG1.3.1>Z79.899</DG1.3.1><DG .~.~<DG1.3.1>Z01.812</DG1.3.1><DG1.3.1>E11.65</DG1.3.1><DG1.3.1>Z79.899</DG1.3.1 ><DG ID Date Data Source [id number] 06/09/2019 02:40:00 PM EST [facility] ([facility]) Name Value Range Interpretation Code Description Data Maria M rce(s) Supporting Document(s) PTT 33.3 s 24.8-36.7 [facility] ([facility]) .~.~<DG1.3.1>Z01.812</DG1.3.1><DG1.3.1>E11.65</DG1.3.1><DG1.3.1>Z79.899</DG1.3.1 ><DG Is patient fasting? N~.~.~<DG1.3.1>Z01.812</DG1.3.1><DG1.3.1>E11.65</DG1.3.1><DG1.3.1>Z79.899</D .~.~<DG1.3.1> Z01.812</DG1.3.1><DG1.3.1>E11.65</DG1.3.1><DG1.3.1>Z79.899</DG1.3.1><DG .~.~<DG1.3.1>Z01.812</DG1.3.1><DG1.3.1>E11.65</DG1.3.1><DG1.3.1>Z79.899</DG1.3.1 ><DG Inr 0.99 0.93-1.23 [facility] ([facility]) .~.~<DG1.3.1>Z01.812</DG1.3.1><DG1.3.1>E11.65</DG1.3.1><DG1.3.1>Z79.899</DG1.3.1 ><DG Is patient fasting? N~.~.~<DG1.3.1>Z01.812</DG1.3.1><DG1.3.1>E11.65</DG1.3.1><DG1.3.1>Z79.899</D .~.~<DG1.3.1> Z01.812</DG1.3.1><DG1.3.1>E11.65</DG1.3.1><DG1.3.1>Z79.899</DG1.3.1><DG .~.~<DG1.3.1>Z01.812</DG1.3.1><DG1.3.1>E11.65</DG1.3.1><DG1.3.1>Z79.899</DG1.3.1 ><DG Protime 13.2 s 11.0-15.5 [facility] ([facility]) .~.~<DG1.3.1>Z01.812</DG1.3.1><DG1.3.1>E11.65</DG1.3.1><DG1.3.1>Z79.899</DG1.3.1 ><DG Is patient fasting? N~.~.~<DG1.3.1>Z01.812</DG1.3.1><DG1.3.1>E11.65</DG1.3.1><DG1.3.1>Z79.899</D .~.~<DG1.3.1> Z01.812</DG1.3.1><DG1.3.1>E11.65</DG1.3.1><DG1.3.1>Z79.899</DG1.3.1><DG .~.~<DG1.3.1>Z01.812</DG1.3.1><DG1.3.1>E11.65</DG1.3.1><DG1.3.1>Z79.899</DG1.3.1 ><DG ID Date Data Source [id number] 06/09/2019 02:40:00 PM EST [facility] ([facility]) Name Value Range Interpretation Code Description Data Maria M rce(s) Supporting Document(s) Comprehensive [employer] Laboratory test result [facility] ([facility]) .~.~<DG1.3.1>Z01.812</DG1.3.1><DG1.3.1>E11.65</DG1.3.1><DG1.3.1>Z79.899</DG1.3.1 ><DG Is patient fasting? N~.~.~<DG1.3.1>Z01.812</DG1.3.1><DG1.3.1>E11.65</DG1.3.1><DG1.3.1>Z79.899</D .~.~<DG1.3.1> Z01.812</DG1.3.1><DG1.3.1>E11.65</DG1.3.1><DG1.3.1>Z79.899</DG1.3.1><DG .~.~<DG1.3.1>Z01.812</DG1.3.1><DG1.3.1>E11.65</DG1.3.1><DG1.3.1>Z79.899</DG1.3.1 ><DG Sodium 140 meq/L 134-153 [facility] ([facility]) .~.~<DG1.3.1>Z01.812</DG1.3.1><DG1.3.1>E11.65</DG1.3.1><DG1.3.1>Z79.899</DG1.3.1 ><DG Is patient fasting? N~.~.~<DG1.3.1>Z01.812</DG1.3.1><DG1.3.1>E11.65</DG1.3.1><DG1.3.1>Z79.899</D .~.~<DG1.3.1> Z01.812</DG1.3.1><DG1.3.1>E11.65</DG1.3.1><DG1.3.1>Z79.899</DG1.3.1><DG .~.~<DG1.3.1>Z01.812</DG1.3.1><DG1.3.1>E11.65</DG1.3.1><DG1.3.1>Z79.899</DG1.3.1 ><DG Chloride 99 meq/L 98-107 [facility] ([facility]) .~.~<DG1.3.1>Z01.812</DG1.3.1><DG1.3.1>E11.65</DG1.3.1><DG1.3.1>Z79.899</DG1.3.1 ><DG Is patient fasting? N~.~.~<DG1.3.1>Z01.812</DG1.3.1><DG1.3.1>E11.65</DG1.3.1><DG1.3.1>Z79.899</D .~.~<DG1.3.1> Z01.812</DG1.3.1><DG1.3.1>E11.65</DG1.3.1><DG1.3.1>Z79.899</DG1.3.1><DG .~.~<DG1.3.1>Z01.812</DG1.3.1><DG1.3.1>E11.65</DG1.3.1><DG1.3.1>Z79.899</DG1.3.1 ><DG Potassium 4.3 meq/L 3.6-5.0 [facility] ([facility]) .~.~<DG1.3.1>Z01.812</DG1.3.1><DG1.3.1>E11.65</DG1.3.1><DG1.3.1>Z79.899</DG1.3.1 ><DG Is patient fasting? N~.~.~<DG1.3.1>Z01.812</DG1.3.1><DG1.3.1>E11.65</DG1.3.1><DG1.3.1>Z79.899</D .~.~<DG1.3.1> Z01.812</DG1.3.1><DG1.3.1>E11.65</DG1.3.1><DG1.3.1>Z79.899</DG1.3.1><DG .~.~<DG1.3.1>Z01.812</DG1.3.1><DG1.3.1>E11.65</DG1.3.1><DG1.3.1>Z79.899</DG1.3.1 ><DG Co2 26 meq/L 22-30 [facility] ([facility]) .~.~<DG1.3.1>Z01.812</DG1.3.1><DG1.3.1>E11.65</DG1.3.1><DG1.3.1>Z79.899</DG1.3.1 ><DG Is patient fasting? N~.~.~<DG1.3.1>Z01.812</DG1.3.1><DG1.3.1>E11.65</DG1.3.1><DG1.3.1>Z79.899</D .~.~<DG1.3.1> Z01.812</DG1.3.1><DG1.3.1>E11.65</DG1.3.1><DG1.3.1>Z79.899</DG1.3.1><DG .~.~<DG1.3.1>Z01.812</DG1.3.1><DG1.3.1>E11.65</DG1.3.1><DG1.3.1>Z79.899</DG1.3.1 ><DG Glucose 293 mg/dL 65-110 Above high normal [facility] ([facility]) .~.~<DG1.3.1>Z01.812</DG1.3.1><DG1.3.1>E11.65</DG1.3.1><DG1.3.1>Z79.899</DG1.3.1 ><DG Is patient fasting? N~.~.~<DG1.3.1>Z01.812</DG1.3.1><DG1.3.1>E11.65</DG1.3.1><DG1.3.1>Z79.899</D .~.~<DG1.3.1> Z01.812</DG1.3.1><DG1.3.1>E11.65</DG1.3.1><DG1.3.1>Z79.899</DG1.3.1><DG .~.~<DG1.3.1>Z01.812</DG1.3.1><DG1.3.1>E11.65</DG1.3.1><DG1.3.1>Z79.899</DG1.3.1 ><DG Creatinine 0.8 mg/dL 0.7-1.5 [facility] ([facility]) .~.~<DG1.3.1>Z01.812</DG1.3.1><DG1.3.1>E11.65</DG1.3.1><DG1.3.1>Z79.899</DG1.3.1 ><DG Is patient fasting? N~.~.~<DG1.3.1>Z01.812</DG1.3.1><DG1.3.1>E11.65</DG1.3.1><DG1.3.1>Z79.899</D .~.~<DG1.3.1> Z01.812</DG1.3.1><DG1.3.1>E11.65</DG1.3.1><DG1.3.1>Z79.899</DG1.3.1><DG .~.~<DG1.3.1>Z01.812</DG1.3.1><DG1.3.1>E11.65</DG1.3.1><DG1.3.1>Z79.899</DG1.3.1 ><DG BUN 16 mg/dL 7-21 [facility] ([facility]) .~.~<DG1.3.1>Z01.812</DG1.3.1><DG1.3.1>E11.65</DG1.3.1><DG1.3.1>Z79.899</DG1.3.1 ><DG Is patient fasting? N~.~.~<DG1.3.1>Z01.812</DG1.3.1><DG1.3.1>E11.65</DG1.3.1><DG1.3.1>Z79.899</D .~.~<DG1.3.1> Z01.812</DG1.3.1><DG1.3.1>E11.65</DG1.3.1><DG1.3.1>Z79.899</DG1.3.1><DG .~.~<DG1.3.1>Z01.812</DG1.3.1><DG1.3.1>E11.65</DG1.3.1><DG1.3.1>Z79.899</DG1.3.1 ><DG Total Protein 7.3 g/dL 6.3-8.2 [facility] .~.~<DG1.3.1>Z01.812</DG1.3.1><DG1.3.1>E11.65</DG1.3.1><DG1.3.1>Z79.899</DG1.3.1 ><DG Is patient fasting? N~.~.~<DG1.3.1>Z01.812</DG1.3.1><DG1.3.1>E11.65</DG1.3.1><DG1.3.1>Z79.899</D .~.~<DG1.3.1> Z01.812</DG1.3.1><DG1.3.1>E11.65</DG1.3.1><DG1.3.1>Z79.899</DG1.3.1><DG .~.~<DG1.3.1>Z01.812</DG1.3.1><DG1.3.1>E11.65</DG1.3.1><DG1.3.1>Z79.899</DG1.3.1 ><DG BUN/Creat 20 8-27 [facility] .~.~<DG1.3.1>Z01.812</DG1.3.1><DG1.3.1>E11.65</DG1.3.1><DG1.3.1>Z79.899</DG1.3.1 ><DG Is patient fasting? N~.~.~<DG1.3.1>Z01.812</DG1.3.1><DG1.3.1>E11.65</DG1.3.1><DG1.3.1>Z79.899</D .~.~<DG1.3.1> Z01.812</DG1.3.1><DG1.3.1>E11.65</DG1.3.1><DG1.3.1>Z79.899</DG1.3.1><DG .~.~<DG1.3.1>Z01.812</DG1.3.1><DG1.3.1>E11.65</DG1.3.1><DG1.3.1>Z79.899</DG1.3.1 ><DG Globulin 2.9 GM/DL 2.4-3.2 [facility] ([facility]) .~.~<DG1.3.1>Z01.812</DG1.3.1><DG1.3.1>E11.65</DG1.3.1><DG1.3.1>Z79.899</DG1.3.1 ><DG Is patient fasting? N~.~.~<DG1.3.1>Z01.812</DG1.3.1><DG1.3.1>E11.65</DG1.3.1><DG1.3.1>Z79.899</D .~.~<DG1.3.1> Z01.812</DG1.3.1><DG1.3.1>E11.65</DG1.3.1><DG1.3.1>Z79.899</DG1.3.1><DG .~.~<DG1.3.1>Z01.812</DG1.3.1><DG1.3.1>E11.65</DG1.3.1><DG1.3.1>Z79.899</DG1.3.1 ><DG Albumin 4.4 g/dL 3.9-5.0 [facility] ([facility]) .~.~<DG1.3.1>Z01.812</DG1.3.1><DG1.3.1>E11.65</DG1.3.1><DG1.3.1>Z79.899</DG1.3.1 ><DG Is patient fasting? N~.~.~<DG1.3.1>Z01.812</DG1.3.1><DG1.3.1>E11.65</DG1.3.1><DG1.3.1>Z79.899</D .~.~<DG1.3.1> Z01.812</DG1.3.1><DG1.3.1>E11.65</DG1.3.1><DG1.3.1>Z79.899</DG1.3.1><DG .~.~<DG1.3.1>Z01.812</DG1.3.1><DG1.3.1>E11.65</DG1.3.1><DG1.3.1>Z79.899</DG1.3.1 ><DG A/G Ratio 1.5 0.8-2.0 [facility] ([facility]) .~.~<DG1.3.1>Z01.812</DG1.3.1><DG1.3.1>E11.65</DG1.3.1><DG1.3.1>Z79.899</DG1.3.1 ><DG Is patient fasting? N~.~.~<DG1.3.1>Z01.812</DG1.3.1><DG1.3.1>E11.65</DG1.3.1><DG1.3.1>Z79.899</D .~.~<DG1.3.1> Z01.812</DG1.3.1><DG1.3.1>E11.65</DG1.3.1><DG1.3.1>Z79.899</DG1.3.1><DG .~.~<DG1.3.1>Z01.812</DG1.3.1><DG1.3.1>E11.65</DG1.3.1><DG1.3.1>Z79.899</DG1.3.1 ><DG Calcium 9.7 mg/dL 8.4-10.2 [facility] .~.~<DG1.3.1>Z01.812</DG1.3.1><DG1.3.1>E11.65</DG1.3.1><DG1.3.1>Z79.899</DG1.3.1 ><DG Is patient fasting? N~.~.~<DG1.3.1>Z01.812</DG1.3.1><DG1.3.1>E11.65</DG1.3.1><DG1.3.1>Z79.899</D .~.~<DG1.3.1> Z01.812</DG1.3.1><DG1.3.1>E11.65</DG1.3.1><DG1.3.1>Z79.899</DG1.3.1><DG .~.~<DG1.3.1>Z01.812</DG1.3.1><DG1.3.1>E11.65</DG1.3.1><DG1.3.1>Z79.899</DG1.3.1 ><DG Alkaline Phos 52 U/L 38-126 [facility] ([facility]) .~.~<DG1.3.1>Z01.812</DG1.3.1><DG1.3.1>E11.65</DG1.3.1><DG1.3.1>Z79.899</DG1.3.1 ><DG Is patient fasting? N~.~.~<DG1.3.1>Z01.812</DG1.3.1><DG1.3.1>E11.65</DG1.3.1><DG1.3.1>Z79.899</D .~.~<DG1.3.1> Z01.812</DG1.3.1><DG1.3.1>E11.65</DG1.3.1><DG1.3.1>Z79.899</DG1.3.1><DG .~.~<DG1.3.1>Z01.812</DG1.3.1><DG1.3.1>E11.65</DG1.3.1><DG1.3.1>Z79.899</DG1.3.1 ><DG Total Bili 0.7 mg/dL 0.2-1.3 [facility] ([facility]) .~.~<DG1.3.1>Z01.812</DG1.3.1><DG1.3.1>E11.65</DG1.3.1><DG1.3.1>Z79.899</DG1.3.1 ><DG Is patient fasting? N~.~.~<DG1.3.1>Z01.812</DG1.3.1><DG1.3.1>E11.65</DG1.3.1><DG1.3.1>Z79.899</D .~.~<DG1.3.1> Z01.812</DG1.3.1><DG1.3.1>E11.65</DG1.3.1><DG1.3.1>Z79.899</DG1.3.1><DG .~.~<DG1.3.1>Z01.812</DG1.3.1><DG1.3.1>E11.65</DG1.3.1><DG1.3.1>Z79.899</DG1.3.1 ><DG Sgot/Ast 21 U/L 5-40 [facility] ([facility]) .~.~<DG1.3.1>Z01.812</DG1.3.1><DG1.3.1>E11.65</DG1.3.1><DG1.3.1>Z79.899</DG1.3.1 ><DG Is patient fasting? N~.~.~<DG1.3.1>Z01.812</DG1.3.1><DG1.3.1>E11.65</DG1.3.1><DG1.3.1>Z79.899</D .~.~<DG1.3.1> Z01.812</DG1.3.1><DG1.3.1>E11.65</DG1.3.1><DG1.3.1>Z79.899</DG1.3.1><DG .~.~<DG1.3.1>Z01.812</DG1.3.1><DG1.3.1>E11.65</DG1.3.1><DG1.3.1>Z79.899</DG1.3.1 ><DG Age 68 yrs [facility] ([facility]) .~.~<DG1.3.1>Z01.812</DG1.3.1><DG1.3.1>E11.65</DG1.3.1><DG1.3.1>Z79.899</DG1.3.1 ><DG Is patient fasting? N~.~.~<DG1.3.1>Z01.812</DG1.3.1><DG1.3.1>E11.65</DG1.3.1><DG1.3.1>Z79.899</D .~.~<DG1.3.1> Z01.812</DG1.3.1><DG1.3.1>E11.65</DG1.3.1><DG1.3.1>Z79.899</DG1.3.1><DG .~.~<DG1.3.1>Z01.812</DG1.3.1><DG1.3.1>E11.65</DG1.3.1><DG1.3.1>Z79.899</DG1.3.1 ><DG SGPT/Alt 18 U/L 7-56 [facility] ([facility]) .~.~<DG1.3.1>Z01.812</DG1.3.1><DG1.3.1>E11.65</DG1.3.1><DG1.3.1>Z79.899</DG1.3.1 ><DG Is patient fasting? N~.~.~<DG1.3.1>Z01.812</DG1.3.1><DG1.3.1>E11.65</DG1.3.1><DG1.3.1>Z79.899</D .~.~<DG1.3.1> Z01.812</DG1.3.1><DG1.3.1>E11.65</DG1.3.1><DG1.3.1>Z79.899</DG1.3.1><DG .~.~<DG1.3.1>Z01.812</DG1.3.1><DG1.3.1>E11.65</DG1.3.1><DG1.3.1>Z79.899</DG1.3.1 ><DG Anion Gap 15.0 mmol/L 8.0-16.0 [facility] ([facility]) .~.~<DG1.3.1>Z01.812</DG1.3.1><DG1.3.1>E11.65</DG1.3.1><DG1.3.1>Z79.899</DG1.3.1 ><DG Is patient fasting? N~.~.~<DG1.3.1>Z01.812</DG1.3.1><DG1.3.1>E11.65</DG1.3.1><DG1.3.1>Z79.899</D .~.~<DG1.3.1> Z01.812</DG1.3.1><DG1.3.1>E11.65</DG1.3.1><DG1.3.1>Z79.899</DG1.3.1><DG .~.~<DG1.3.1>Z01.812</DG1.3.1><DG1.3.1>E11.65</DG1.3.1><DG1.3.1>Z79.899</DG1.3.1 ><DG Non-Aa GFR Laboratory test result [facility] ([facility]) .~.~<DG1.3.1>Z01.812</DG1.3.1><DG1.3.1>E11.65</DG1.3.1><DG1.3.1>Z79.899</DG1.3.1 ><DG Is patient fasting? N~.~.~<DG1.3.1>Z01.812</DG1.3.1><DG1.3.1>E11.65</DG1.3.1><DG1.3.1>Z79.899</D .~.~<DG1.3.1> Z01.812</DG1.3.1><DG1.3.1>E11.65</DG1.3.1><DG1.3.1>Z79.899</DG1.3.1><DG .~.~<DG1.3.1>Z01.812</DG1.3.1><DG1.3.1>E11.65</DG1.3.1><DG1.3.1>Z79.899</DG1.3.1 ><DG Afr Amer GFR Laboratory test result [facility] ([facility]) .~.~<DG1.3.1>Z01.812</DG1.3.1><DG1.3.1>E11.65</DG1.3.1><DG1.3.1>Z79.899</DG1.3.1 ><DG Is patient fasting? N~.~.~<DG1.3.1>Z01.812</DG1.3.1><DG1.3.1>E11.65</DG1.3.1><DG1.3.1>Z79.899</D .~.~<DG1.3.1> Z01.812</DG1.3.1><DG1.3.1>E11.65</DG1.3.1><DG1.3.1>Z79.899</DG1.3.1><DG .~.~<DG1.3.1>Z01.812</DG1.3.1><DG1.3.1>E11.65</DG1.3.1><DG1.3.1>Z79.899</DG1.3.1 ><DG ID Date Data Source [id number] 06/09/2019 02:40:00 PM EST [facility] ([facility]) Name Value Range Interpretation Code Description Data Maria M rce(s) Supporting Document(s) CBC W/Automated Diff [facility] .~.~<DG1.3.1>Z01.812</DG1.3.1><DG1.3.1>E11.65</DG1.3.1><DG1.3.1>Z79.899</DG1.3.1 ><DG Is patient fasting? N~.~.~<DG1.3.1>Z01.812</DG1.3.1><DG1.3.1>E11.65</DG1.3.1><DG1.3.1>Z79.899</D .~.~<DG1.3.1> Z01.812</DG1.3.1><DG1.3.1>E11.65</DG1.3.1><DG1.3.1>Z79.899</DG1.3.1><DG .~.~<DG1.3.1>Z01.812</DG1.3.1><DG1.3.1>E11.65</DG1.3.1><DG1.3.1>Z79.899</DG1.3.1 ><DG WBC 10.6 10^3/uL 4.2-11.0 [facility] ([facility]) .~.~<DG1.3.1>Z01.812</DG1.3.1><DG1.3.1>E11.65</DG1.3.1><DG1.3.1>Z79.899</DG1.3.1 ><DG Is patient fasting? N~.~.~<DG1.3.1>Z01.812</DG1.3.1><DG1.3.1>E11.65</DG1.3.1><DG1.3.1>Z79.899</D .~.~<DG1.3.1> Z01.812</DG1.3.1><DG1.3.1>E11.65</DG1.3.1><DG1.3.1>Z79.899</DG1.3.1><DG .~.~<DG1.3.1>Z01.812</DG1.3.1><DG1.3.1>E11.65</DG1.3.1><DG1.3.1>Z79.899</DG1.3.1 ><DG Hematocrit 43.7 % 37.0-47.0 [facility] ([facility]) .~.~<DG1.3.1>Z01.812</DG1.3.1><DG1.3.1>E11.65</DG1.3.1><DG1.3.1>Z79.899</DG1.3.1 ><DG Is patient fasting? N~.~.~<DG1.3.1>Z01.812</DG1.3.1><DG1.3.1>E11.65</DG1.3.1><DG1.3.1>Z79.899</D .~.~<DG1.3.1> Z01.812</DG1.3.1><DG1.3.1>E11.65</DG1.3.1><DG1.3.1>Z79.899</DG1.3.1><DG .~.~<DG1.3.1>Z01.812</DG1.3.1><DG1.3.1>E11.65</DG1.3.1><DG1.3.1>Z79.899</DG1.3.1 ><DG MCV 89.7 fL 81.0-101 [facility] ([facility]) .~.~<DG1.3.1>Z01.812</DG1.3.1><DG1.3.1>E11.65</DG1.3.1><DG1.3.1>Z79.899</DG1.3.1 ><DG Is patient fasting? N~.~.~<DG1.3.1>Z01.812</DG1.3.1><DG1.3.1>E11.65</DG1.3.1><DG1.3.1>Z79.899</D .~.~<DG1.3.1> Z01.812</DG1.3.1><DG1.3.1>E11.65</DG1.3.1><DG1.3.1>Z79.899</DG1.3.1><DG .~.~<DG1.3.1>Z01.812</DG1.3.1><DG1.3.1>E11.65</DG1.3.1><DG1.3.1>Z79.899</DG1.3.1 ><DG Hemoglobin 14.2 g/dL 12.0-16.0 [facility] ([facility]) .~.~<DG1.3.1>Z01.812</DG1.3.1><DG1.3.1>E11.65</DG1.3.1><DG1.3.1>Z79.899</DG1.3.1 ><DG Is patient fasting? N~.~.~<DG1.3.1>Z01.812</DG1.3.1><DG1.3.1>E11.65</DG1.3.1><DG1.3.1>Z79.899</D .~.~<DG1.3.1> Z01.812</DG1.3.1><DG1.3.1>E11.65</DG1.3.1><DG1.3.1>Z79.899</DG1.3.1><DG .~.~<DG1.3.1>Z01.812</DG1.3.1><DG1.3.1>E11.65</DG1.3.1><DG1.3.1>Z79.899</DG1.3.1 ><DG RBC 4.87 10^6/uL 4.20-5.40 [facility] .~.~<DG1.3.1>Z01.812</DG1.3.1><DG1.3.1>E11.65</DG1.3.1><DG1.3.1>Z79.899</DG1.3.1 ><DG Is patient fasting? N~.~.~<DG1.3.1>Z01.812</DG1.3.1><DG1.3.1>E11.65</DG1.3.1><DG1.3.1>Z79.899</D .~.~<DG1.3.1> Z01.812</DG1.3.1><DG1.3.1>E11.65</DG1.3.1><DG1.3.1>Z79.899</DG1.3.1><DG .~.~<DG1.3.1>Z01.812</DG1.3.1><DG1.3.1>E11.65</DG1.3.1><DG1.3.1>Z79.899</DG1.3.1 ><DG MCHC 32.5 g/dL 31.0-36.0 [facility] ([facility]) .~.~<DG1.3.1>Z01.812</DG1.3.1><DG1.3.1>E11.65</DG1.3.1><DG1.3.1>Z79.899</DG1.3.1 ><DG Is patient fasting? N~.~.~<DG1.3.1>Z01.812</DG1.3.1><DG1.3.1>E11.65</DG1.3.1><DG1.3.1>Z79.899</D .~.~<DG1.3.1> Z01.812</DG1.3.1><DG1.3.1>E11.65</DG1.3.1><DG1.3.1>Z79.899</DG1.3.1><DG .~.~<DG1.3.1>Z01.812</DG1.3.1><DG1.3.1>E11.65</DG1.3.1><DG1.3.1>Z79.899</DG1.3.1 ><DG MCH 29.2 pg 27.0-34.0 [facility] ([facility]) .~.~<DG1.3.1>Z01.812</DG1.3.1><DG1.3.1>E11.65</DG1.3.1><DG1.3.1>Z79.899</DG1.3.1 ><DG Is patient fasting? N~.~.~<DG1.3.1>Z01.812</DG1.3.1><DG1.3.1>E11.65</DG1.3.1><DG1.3.1>Z79.899</D .~.~<DG1.3.1> Z01.812</DG1.3.1><DG1.3.1>E11.65</DG1.3.1><DG1.3.1>Z79.899</DG1.3.1><DG .~.~<DG1.3.1>Z01.812</DG1.3.1><DG1.3.1>E11.65</DG1.3.1><DG1.3.1>Z79.899</DG1.3.1 ><DG RDW 12.2 % 11.5-14.5 [facility] ([facility]) .~.~<DG1.3.1>Z01.812</DG1.3.1><DG1.3.1>E11.65</DG1.3.1><DG1.3.1>Z79.899</DG1.3.1 ><DG Is patient fasting? N~.~.~<DG1.3.1>Z01.812</DG1.3.1><DG1.3.1>E11.65</DG1.3.1><DG1.3.1>Z79.899</D .~.~<DG1.3.1> Z01.812</DG1.3.1><DG1.3.1>E11.65</DG1.3.1><DG1.3.1>Z79.899</DG1.3.1><DG .~.~<DG1.3.1>Z01.812</DG1.3.1><DG1.3.1>E11.65</DG1.3.1><DG1.3.1>Z79.899</DG1.3.1 ><DG Neut 66.9 % 37.0-80.0 [facility] ([facility]) .~.~<DG1.3.1>Z01.812</DG1.3.1><DG1.3.1>E11.65</DG1.3.1><DG1.3.1>Z79.899</DG1.3.1 ><DG Is patient fasting? N~.~.~<DG1.3.1>Z01.812</DG1.3.1><DG1.3.1>E11.65</DG1.3.1><DG1.3.1>Z79.899</D .~.~<DG1.3.1> Z01.812</DG1.3.1><DG1.3.1>E11.65</DG1.3.1><DG1.3.1>Z79.899</DG1.3.1><DG .~.~<DG1.3.1>Z01.812</DG1.3.1><DG1.3.1>E11.65</DG1.3.1><DG1.3.1>Z79.899</DG1.3.1 ><DG MPV 10.7 fL 7.4-10.4 Above high normal [facility] ([facility]) .~.~<DG1.3.1>Z01.812</DG1.3.1><DG1.3.1>E11.65</DG1.3.1><DG1.3.1>Z79.899</DG1.3.1 ><DG Is patient fasting? N~.~.~<DG1.3.1>Z01.812</DG1.3.1><DG1.3.1>E11.65</DG1.3.1><DG1.3.1>Z79.899</D .~.~<DG1.3.1> Z01.812</DG1.3.1><DG1.3.1>E11.65</DG1.3.1><DG1.3.1>Z79.899</DG1.3.1><DG .~.~<DG1.3.1>Z01.812</DG1.3.1><DG1.3.1>E11.65</DG1.3.1><DG1.3.1>Z79.899</DG1.3.1 ><DG Platelets 278 10^3/uL 150-450 [facility] ([facility]) .~.~<DG1.3.1>Z01.812</DG1.3.1><DG1.3.1>E11.65</DG1.3.1><DG1.3.1>Z79.899</DG1.3.1 ><DG Is patient fasting? N~.~.~<DG1.3.1>Z01.812</DG1.3.1><DG1.3.1>E11.65</DG1.3.1><DG1.3.1>Z79.899</D .~.~<DG1.3.1> Z01.812</DG1.3.1><DG1.3.1>E11.65</DG1.3.1><DG1.3.1>Z79.899</DG1.3.1><DG .~.~<DG1.3.1>Z01.812</DG1.3.1><DG1.3.1>E11.65</DG1.3.1><DG1.3.1>Z79.899</DG1.3.1 ><DG Lymph 20.9 % 25.0-40.0 Below low normal [facility] ( [facility]) .~.~<DG1.3.1>Z01.812</DG1.3.1><DG1.3.1>E11.65</DG1.3.1><DG1.3.1>Z79.899</DG1.3.1 ><DG Is patient fasting? N~.~.~<DG1.3.1>Z01.812</DG1.3.1><DG1.3.1>E11.65</DG1.3.1><DG1.3.1>Z79.899</D .~.~<DG1.3.1> Z01.812</DG1.3.1><DG1.3.1>E11.65</DG1.3.1><DG1.3.1>Z79.899</DG1.3.1><DG .~.~<DG1.3.1>Z01.812</DG1.3.1><DG1.3.1>E11.65</DG1.3.1><DG1.3.1>Z79.899</DG1.3.1 ><DG Eos 5.2 % 0.0-7.0 [facility] ([facility]) .~.~<DG1.3.1>Z01.812</DG1.3.1><DG1.3.1>E11.65</DG1.3.1><DG1.3.1>Z79.899</DG1.3.1 ><DG Is patient fasting? N~.~.~<DG1.3.1>Z01.812</DG1.3.1><DG1.3.1>E11.65</DG1.3.1><DG1.3.1>Z79.899</D .~.~<DG1.3.1> Z01.812</DG1.3.1><DG1.3.1>E11.65</DG1.3.1><DG1.3.1>Z79.899</DG1.3.1><DG .~.~<DG1.3.1>Z01.812</DG1.3.1><DG1.3.1>E11.65</DG1.3.1><DG1.3.1>Z79.899</DG1.3.1 ><DG Asotin 6.2 % 3.0-8.0 [facility] ([facility]) .~.~<DG1.3.1>Z01.812</DG1.3.1><DG1.3.1>E11.65</DG1.3.1><DG1.3.1>Z79.899</DG1.3.1 ><DG Is patient fasting? N~.~.~<DG1.3.1>Z01.812</DG1.3.1><DG1.3.1>E11.65</DG1.3.1><DG1.3.1>Z79.899</D .~.~<DG1.3.1> Z01.812</DG1.3.1><DG1.3.1>E11.65</DG1.3.1><DG1.3.1>Z79.899</DG1.3.1><DG .~.~<DG1.3.1>Z01.812</DG1.3.1><DG1.3.1>E11.65</DG1.3.1><DG1.3.1>Z79.899</DG1.3.1 ><DG %Ig 0.3 % 0.0-0.0 Above high normal [facility] ([facility]) .~.~<DG1.3.1>Z01.812</DG1.3.1><DG1.3.1>E11.65</DG1.3.1><DG1.3.1>Z79.899</DG1.3.1 ><DG Is patient fasting? N~.~.~<DG1.3.1>Z01.812</DG1.3.1><DG1.3.1>E11.65</DG1.3.1><DG1.3.1>Z79.899</D .~.~<DG1.3.1> Z01.812</DG1.3.1><DG1.3.1>E11.65</DG1.3.1><DG1.3.1>Z79.899</DG1.3.1><DG .~.~<DG1.3.1>Z01.812</DG1.3.1><DG1.3.1>E11.65</DG1.3.1><DG1.3.1>Z79.899</DG1.3.1 ><DG %NRBC 0.0 % 0.0-0.0 [facility] ([facility]) .~.~<DG1.3.1>Z01.812</DG1.3.1><DG1.3.1>E11.65</DG1.3.1><DG1.3.1>Z79.899</DG1.3.1 ><DG Is patient fasting? N~.~.~<DG1.3.1>Z01.812</DG1.3.1><DG1.3.1>E11.65</DG1.3.1><DG1.3.1>Z79.899</D .~.~<DG1.3.1> Z01.812</DG1.3.1><DG1.3.1>E11.65</DG1.3.1><DG1.3.1>Z79.899</DG1.3.1><DG .~.~<DG1.3.1>Z01.812</DG1.3.1><DG1.3.1>E11.65</DG1.3.1><DG1.3.1>Z79.899</DG1.3.1 ><DG Baso 0.5 % 0.0-2.5 [facility] ([facility]) .~.~<DG1.3.1>Z01.812</DG1.3.1><DG1.3.1>E11.65</DG1.3.1><DG1.3.1>Z79.899</DG1.3.1 ><DG Is patient fasting? N~.~.~<DG1.3.1>Z01.812</DG1.3.1><DG1.3.1>E11.65</DG1.3.1><DG1.3.1>Z79.899</D .~.~<DG1.3.1> Z01.812</DG1.3.1><DG1.3.1>E11.65</DG1.3.1><DG1.3.1>Z79.899</DG1.3.1><DG .~.~<DG1.3.1>Z01.812</DG1.3.1><DG1.3.1>E11.65</DG1.3.1><DG1.3.1>Z79.899</DG1.3.1 ><DG #Lymph 2.21 10^3/uL 0.60-3.40 [facility] ([facility]) .~.~<DG1.3.1>Z01.812</DG1.3.1><DG1.3.1>E11.65</DG1.3.1><DG1.3.1>Z79.899</DG1.3.1 ><DG Is patient fasting? N~.~.~<DG1.3.1>Z01.812</DG1.3.1><DG1.3.1>E11.65</DG1.3.1><DG1.3.1>Z79.899</D .~.~<DG1.3.1> Z01.812</DG1.3.1><DG1.3.1>E11.65</DG1.3.1><DG1.3.1>Z79.899</DG1.3.1><DG .~.~<DG1.3.1>Z01.812</DG1.3.1><DG1.3.1>E11.65</DG1.3.1><DG1.3.1>Z79.899</DG1.3.1 ><DG #Neut 7.09 10^3/uL 2.00-6.90 Above high normal [facility] ([facility]) .~.~<DG1.3.1>Z01.812</DG1.3.1><DG1.3.1>E11.65</DG1.3.1><DG1.3.1>Z79.899</DG1.3.1 ><DG Is patient fasting? N~.~.~<DG1.3.1>Z01.812</DG1.3.1><DG1.3.1>E11.65</DG1.3.1><DG1.3.1>Z79.899</D .~.~<DG1.3.1> Z01.812</DG1.3.1><DG1.3.1>E11.65</DG1.3.1><DG1.3.1>Z79.899</DG1.3.1><DG .~.~<DG1.3.1>Z01.812</DG1.3.1><DG1.3.1>E11.65</DG1.3.1><DG1.3.1>Z79.899</DG1.3.1 ><DG #Asotin 0.66 10^3/uL 0.00-0.90 [facility]) .~.~<DG1.3.1>Z01.812</DG1.3.1><DG1.3.1>E11.65</DG1.3.1><DG1.3.1>Z79.899</DG1.3.1 ><DG Is patient fasting? N~.~.~<DG1.3.1>Z01.812</DG1.3.1><DG1.3.1>E11.65</DG1.3.1><DG1.3.1>Z79.899</D .~.~<DG1.3.1> Z01.812</DG1.3.1><DG1.3.1>E11.65</DG1.3.1><DG1.3.1>Z79.899</DG1.3.1><DG .~.~<DG1.3.1>Z01.812</DG1.3.1><DG1.3.1>E11.65</DG1.3.1><DG1.3.1>Z79.899</DG1.3.1 ><DG #Eos 0.55 10^3/uL 0.00-0.70 [facility] ([facility]) .~.~<DG1.3.1>Z01.812</DG1.3.1><DG1.3.1>E11.65</DG1.3.1><DG1.3.1>Z79.899</DG1.3.1 ><DG Is patient fasting? N~.~.~<DG1.3.1>Z01.812</DG1.3.1><DG1.3.1>E11.65</DG1.3.1><DG1.3.1>Z79.899</D .~.~<DG1.3.1> Z01.812</DG1.3.1><DG1.3.1>E11.65</DG1.3.1><DG1.3.1>Z79.899</DG1.3.1><DG .~.~<DG1.3.1>Z01.812</DG1.3.1><DG1.3.1>E11.65</DG1.3.1><DG1.3.1>Z79.899</DG1.3.1 ><DG #Baso 0.05 10^3/uL 0.00-0.20 [facility] ([facility]) .~.~<DG1.3.1>Z01.812</DG1.3.1><DG1.3.1>E11.65</DG1.3.1><DG1.3.1>Z79.899</DG1.3.1 ><DG Is patient fasting? N~.~.~<DG1.3.1>Z01.812</DG1.3.1><DG1.3.1>E11.65</DG1.3.1><DG1.3.1>Z79.899</D .~.~<DG1.3.1> Z01.812</DG1.3.1><DG1.3.1>E11.65</DG1.3.1><DG1.3.1>Z79.899</DG1.3.1><DG .~.~<DG1.3.1>Z01.812</DG1.3.1><DG1.3.1>E11.65</DG1.3.1><DG1.3.1>Z79.899</DG1.3.1 ><DG #NRBC 0.00 10^3/uL 0.00-0.00 [facility]) .~.~<DG1.3.1>Z01.812</DG1.3.1><DG1.3.1>E11.65</DG1.3.1><DG1.3.1>Z79.899</DG1.3.1 ><DG Is patient fasting? N~.~.~<DG1.3.1>Z01.812</DG1.3.1><DG1.3.1>E11.65</DG1.3.1><DG1.3.1>Z79.899</D .~.~<DG1.3.1> Z01.812</DG1.3.1><DG1.3.1>E11.65</DG1.3.1><DG1.3.1>Z79.899</DG1.3.1><DG .~.~<DG1.3.1>Z01.812</DG1.3.1><DG1.3.1>E11.65</DG1.3.1><DG1.3.1>Z79.899</DG1.3.1 ><DG #Ig 0.03 10^3/uL 0.00-0.10 [facility]) .~.~<DG1.3.1>Z01.812</DG1.3.1><DG1.3.1>E11.65</DG1.3.1><DG1.3.1>Z79.899</DG1.3.1 ><DG Is patient fasting? N~.~.~<DG1.3.1>Z01.812</DG1.3.1><DG1.3.1>E11.65</DG1.3.1><DG1.3.1>Z79.899</D .~.~<DG1.3.1> Z01.812</DG1.3.1><DG1.3.1>E11.65</DG1.3.1><DG1.3.1>Z79.899</DG1.3.1><DG .~.~<DG1.3.1>Z01.812</DG1.3.1><DG1.3.1>E11.65</DG1.3.1><DG1.3.1>Z79.899</DG1.3.1 ><DG Manual Diff Laboratory test result [facility] ([facility]) .~.~<DG1.3.1>Z01.812</DG1.3.1><DG1.3.1>E11.65</DG1.3.1><DG1.3.1>Z79.899</DG1.3.1 ><DG Is patient fasting? N~.~.~<DG1.3.1>Z01.812</DG1.3.1><DG1.3.1>E11.65</DG1.3.1><DG1.3.1>Z79.899</D .~.~<DG1.3.1> Z01.812</DG1.3.1><DG1.3.1>E11.65</DG1.3.1><DG1.3.1>Z79.899</DG1.3.1><DG .~.~<DG1.3.1>Z01.812</DG1.3.1><DG1.3.1>E11.65</DG1.3.1><DG1.3.1>Z79.899</DG1.3.1 ><DG RBC Morph Laboratory test result [facility] ([facility]) .~.~<DG1.3.1>Z01.812</DG1.3.1><DG1.3.1>E11.65</DG1.3.1><DG1.3.1>Z79.899</DG1.3.1 ><DG Is patient fasting? N~.~.~<DG1.3.1>Z01.812</DG1.3.1><DG1.3.1>E11.65</DG1.3.1><DG1.3.1>Z79.899</D .~.~<DG1.3.1> Z01.812</DG1.3.1><DG1.3.1>E11.65</DG1.3.1><DG1.3.1>Z79.899</DG1.3.1><DG .~.~<DG1.3.1>Z01.812</DG1.3.1><DG1.3.1>E11.65</DG1.3.1><DG1.3.1>Z79.899</DG1.3.1 ><DG ID Date Data Source [id number] 06/10/2019 05:51:00 PM [facility] Name Value Range Interpretation Code Description Data Maria M rce(s) Supporting Document(s) Hemoglobin A1c/Hemoglobin.total in Blood 11.0 % 4.4 - 6.1 H [facility] {A1]{HB] ID Date Data Source [id number] 06/10/2019 05:34:00 PM [facility] Name Value Range Interpretation Code Description Data Maria M rce(s) Supporting Document(s) CBC W/AUTOMATED DIFF [facility] COMPLETE BLOOD COUNT Leukocytes [#/volume] in Blood by Automated count 10.6 10^3/uL 4.2 - 11.0 [facility] Erythrocytes [#/volume] in Blood by Automated count 4.87 10^6/uL 4. 20 - 5.40 [facility] Hemoglobin [Mass/volume] in Blood 14.2 g/dL 12.0 - 16.0 [facility] Hematocrit [Volume Fraction] of Blood by Automated count 43.7 % 3 7.0 - 47.0 [facility] Erythrocyte mean corpuscular volume [Entitic volume] by Auto mated count 89.7 fL 81.0 - 101 [facility] Erythrocyte mean corpuscular hemoglobin [Entitic mass] by Automated count 29.2 pg 27.0 - 34.0 [facility] Erythrocyte mean corpuscular hemoglobin concentration [Mass/volume] by Automated count 32.5 g/dL 31.0 - 36.0 [facility] Erythrocyte distribution width [Ratio] by Automated count 12.2 % 11.5 - 14.5 [facility] Platelets [#/volume] in Blood by Automated count 278 10^3/uL 150 - 45 0 [facility] Platelet mean volume [Entitic volume] in Blood by Automated count 10.7 fL 7.4 - 10.4 H [facility] Neutrophils/100 leukocytes in Blood by Automated count 66.9 % 37. 0 - 80.0 [facility] Lymphocytes/100 leukocytes in Blood by Manual count 20.9 % 25.0 - 40.0 L [facility] Monocytes/100 leukocytes in Blood by Automated count 6.2 % 3.0 - 8.0 [facility] Eosinophils/100 leukocytes in Blood by Automated count 5.2 % 0.0 - 7.0 [facility] Basophils/100 leukocytes in Blood by Automated count 0.5 % 0.0 - 2.5 [facility] %IG 0.3 % 0.0 - 0.[address] [facility] al %NRBC 0.0 % 0.0 - 0.0 [facility] al Neutrophils [#/volume] in Blood by Automated count 7.09 10^3/uL 2.00 - 6.90 H [facility] Lymphocytes [#/volume] in Blood by Automated count 2.21 10^3/uL 0.60 - 3.40 [facility] Monocytes [#/volume] in Blood by Automated count 0.66 10^3/uL 0.00 - 0.90 [facility] Eosinophils [#/volume] in Blood by Automated count 0.55 10^3/uL 0.00 - 0.70 [facility] Basophils [#/volume] in Blood by Automated count 0.05 10^3/uL 0.00 - 0.20 [facility] #IG 0.03 10^3/uL 0.00 - 0.10 [facility] #NRBC 0.00 10^3/uL 0.00 - 0.00 [facility] MANUAL DIFF NOT INDICATED [facility] RBC [facility] { SICKLE CELL (NORMAL: NONE SEEN ) COMMENT: _NO_PLATELET_CLUMPING_SEEN 06/10/19.1734.MO . . . ____ ID Date Data Source [id number] 06/10/2019 05:26:00 PM EST [facility] Name Value Range Interpretation Code Description Data Maria M rce(s) Supporting Document(s) COMPREHENSIVE METABOLIC PANEL [facility] COMPREHENSIVE METABOLIC PANEL Sodium [Moles/volume] in Serum or Plasma 140 mEq/L 134 - 153 [facility] Potassium [Moles/volume] in Serum or Plasma 4.3 mEq/L 3.6 - 5.0 [facility] Chloride [Moles/volume] in Serum or Plasma 99 mEq/L 98 - 107 [facility] Carbon dioxide, total [Moles/volume] in Serum or Plasma 26 MEQ/L 22 - 30 [facility] Glucose [Mass/volume] in Serum or Plasma 293 MG/DL 65 - 110 H [facility] BUN 16 MG/DL 7 - 21 [facility] al Creatinine [Mass/volume] in Serum or Plasma 0.8 MG/DL 0.7 - 1.5 [facility] BUN/CREAT 20 8 - 27 [facility] Protein [Mass/volume] in Serum or Plasma 7.3 G/DL 6.3 - 8.2 [facility] Albumin [Mass/volume] in Serum or Plasma 4.4 G/DL 3.9 - 5.0 [facility] Globulin [Mass/volume] in Serum by calculation 2.9 GM/DL 2.4 - 3.2 [facility] A/G RATIO 1.5 0.8 - 2.0 [facility] Calcium [Mass/volume] in Serum or Plasma 9.7 MG/DL 8.4 - 10.2 [facility] Bilirubin.total [Mass/volume] in Serum or Plasma 0.7 MG/DL 0.2 - 1.3 [facility] Alkaline phosphatase [Enzymatic activity/volume] in Serum or Plasma 52 U/L 38 - 126 [facility] Aspartate aminotransferase [Enzymatic activity/volume] in Serum or Plasma 21 U/L 5 - 40 [facility] Alanine aminotransferase [Enzymatic activity/volume] in Seru m or Plasma 18 U/L 7 - 56 [facility] Anion gap 3 in Serum or Plasma 15.0 mmol/L 8.0 - 16.0 [facility] AGE 68 yrs [facility] NON-AA GFR >60 mL/min [facility] ital AFR AMER GFR >60 [facility] Male GFR In terprentation 20-49 [...] >32 mL/min Normal ID Date Data Source [id number] 06/10/2019 05:11:00 PM EST [facility] Name Value Range Interpretation Code Description Data Maria M rce(s) Supporting Document(s) Prothrombin time (PT) 13.2 SECONDS 11.0 - 15.5 [facility] INR in Platelet poor plasma by Coagulation assay 0.99 0.93 - 1. 23 [facility] aPTT in Blood by Coagulation assay 33.3 SECONDS 24.8 - 36.7 [facility] \\BLDo\\INR INTERPRETATION\\BLDx\\ Therapeutic range for Coumadin and related oral anticoagulants. - International Normalized Ratio (INR): 2.0 - 3.0 for Venous Thrombosis, Pulmonary Embolus, Tissue heart valves, Acute LA Atrial Fibrillation, Valvular heart disease and recurrent [...] complet ed Never Smoked A Pipe [facility] ([facility]) Vital Signs ID Date Data Source UNK Name Value Range Interpretation Code Description Data Source(s) Heart rate 96 /min 96 /min [facility] ([facility] Diastolic blood pressure 68 mm[Hg] 68 mm[Hg] [facility] ([facility] Systolic blood pressure 114 mm[Hg] 114 mm[Hg] M [facility] ([facility] Body weight 177.38 [lb_av] 177.38 [lb_av] [facility] T ([facility] Body temperature 96.8 [degF] 96.8 [degF] [facility] ([facility] ) Body surface area Derived from formula 1.77 m2 1.77 m2 [facility] Body mass index (BMI) [Ratio] 34.6 kg/m2 34.6 k g/m2 [facility] ([facility]) Body height 60 [in_i] 60 [in_i] [facility] ([facility]) 5'0" Body weight 80.457 kg 80.457 kg [facility] ([facility]) Body weight 177.38 [lb_av] 177.38 [lb_av] [facility] T ([facility]) Oxygen saturation in Arterial blood by Pulse oximetry 96 % 96 % [facility] ([facility]) Respiratory rate 18 /min 18 /min [facility] ( [facility]) Body temperature 97.0 [degF] 97.0 [degF] [facility] ([facility]) Heart rate 96 /min 96 /min [facility] Diastolic blood pressure 68 mm[Hg] 68 mm[Hg] [facility] Systolic blood pressure 114 mm[Hg] 114 mm[Hg] [facility] Body surface area Derived from formula 1.79 m2 1.79 m2 [facility] ([facility]) Body mass index (BMI) [Ratio] 35.4 kg/m2 35.4 k g/m2 [facility] ([facility]) Body height 60 [in_i] 60 [in_i] [facility] ([facility]) 5'0" Body weight 82.158 kg 82.158 kg [facility] ([facility]) Body weight 181.12 [lb_av] 181.12 [lb_av] [facility] ([facility]) Oxygen saturation in Arterial blood by Pulse oximetry 98 % 98 % [facility] Respiratory rate 18 /min 18 /min [facility] ( [facility]) Body temperature 97.2 [degF] 97.2 [degF] [facility] ([facility]) Heart rate 92 /min 92 /min [facility] ([facility]) Diastolic blood pressure 72 mm[Hg] 72 mm[Hg] [facility] ([facility]) Systolic blood pressure 120 mm[Hg] 120 mm[Hg] [facility] Body surface area 1.79 m2 1.79 m2 [facility] ([facility]) Body surface area 1.85 m2 1.85 m2 [facility] ([facility]) Body mass index (BMI) [Ratio] 38.1 kg/m2 38.1 k g/m2 [facility] ([facility]) Body height 60 [in_i] 60 [in_i] [facility] ([facility]) 5'0" Body weight 88.452 kg 88.452 kg [facility] ([facility]) Body weight 195.00 [lb_av] 195.00 [lb_av] [facility] T ([facility]) Oxygen saturation in Arterial blood by Pulse oximetry 97 % 97 % [facility] Respiratory rate 18 /min 18 /min [facility] ( [facility]) Body temperature 98.7 [degF] 98.7 [degF] [facility] ([facility]) Heart rate 90 /min 90 /min [facility] ([facility]) Diastolic blood pressure 72 mm[Hg] 72 mm[Hg] [facility] ([facility]) Systolic blood pressure 120 mm[Hg] 120 mm[Hg] M [facility] ([facility]) Systolic blood pressure 140 mm[Hg] 140 mm[Hg] [facility] Body surface area 1.85 m2 1.85 m2 [facility] ([facility]) Body mass index (BMI) [Ratio] 38.1 kg/m2 38.1 k g/m2 [facility] ([facility]) Body height 60 [in_i] 60 [in_i] [facility] 5'0" Body weight 88.565 kg 88.565 kg [facility] ([facility]) Body weight 195.25 [lb_av] 195.25 [lb_av] [facility] ([facility]) Oxygen saturation in Arterial blood by Pulse oximetry 98 % 98 % [facility] ([facility]) Respiratory rate 16 /min 16 /min [facility] ( [facility]) Body temperature 97.4 [degF] 97.4 [degF] [facility] ([facility]) Heart rate 86 /min 86 /min [facility] ([facility]) Diastolic blood pressure 88 mm[Hg] 88 mm[Hg] [facility] Body weight 190.00 [lb_av] 190.00 [lb_av] [facility] ([facility]) Oxygen saturation in Arterial blood by Pulse oximetry 98 % 98 % [facility] ([facility]) Respiratory rate 16 /min 16 /min [facility] ( [facility]) Body temperature 98.2 [degF] 98.2 [degF] [facility] ([facility]) Heart rate 96 /min 96 /min [facility] ([facility]) Diastolic blood pressure 74 mm[Hg] 74 mm[Hg] [facility] ([facility]) Systolic blood pressure 126 mm[Hg] 126 mm[Hg] M [facility] ([facility]) Body surface area 1.83 m2 1.83 m2 [facility] ([facility]) Body mass index (BMI) [Ratio] 37.1 kg/m2 37.1 k g/m2 [facility] ([facility]) Body height 60 [in_i] 60 [in_i] [facility] ([facility]) 5'0" Body weight 86.184 kg 86.184 kg [facility] ([facility]) Body temperature 98.2 [degF] 98.2 [degF] [facility] ([facility] ) Body surface area 1.83 m2 1.83 m2 [facility] ([facility]) Body mass index (BMI) [Ratio] 37.3 kg/m2 37.3 k g/m2 [facility] ([facility]) Body height 60 [in_i] 60 [in_i] [facility] ([facility]) 5'0" Body weight 86.638 kg 86.638 kg [facility] ([facility]) Body weight 191.00 [lb_av] 191.00 [lb_av] [facility] T ([facility]) Oxygen saturation in Arterial blood by Pulse oximetry 98 % 98 % [facility] ([facility]) Respiratory rate 18 /min 18 /min [facility] ( [facility]) Body temperature 98.1 [degF] 98.1 [degF] [facility] ([facility]) Heart rate 94 /min 94 /min [facility] ([facility]) Diastolic blood pressure 70 mm[Hg] 70 mm[Hg] [facility] ([facility]) Systolic blood pressure 128 mm[Hg] 128 mm[Hg] M [facility] ([facility])
--- NOTE | 2020-07-01 11:50 | REP ---
INDICATION: CVA. COMPARISON: None. TECHNIQUE: Helical scanning is acquired. 5 mm axial images were reformatted. Coronal MPR images were generated. FINDINGS: Bone window settings demonstrate an intact bony calvarium. There is no evidence of skull fracture or incidental bony calvarial lesion. The visualized paranasal sinuses appear clear. No intraorbital abnormality is seen. On soft tissue window setting images; the lateral, third, and fourth ventricles are normal in size and position. Kirkpatrick-white differentiation pattern is normal above and below the tentorium. There are is no evidence of intracranial hemorrhage. No mass, edema, infarction, or midline shift is seen. No extra-axial fluid collection is appreciated. Vascular calcification is noted in the distal vertebral and distal carotid arteries. IMPRESSION: Vascular calcification. Otherwise negative noncontrast CT study of the brain. No acute intracranial abnormality.. <Electronically signed by Kuldeep Rios > 07/01/20 [id number]
--- NOTE | 2020-07-01 12:42 | REP ---
INDICATION: CVA. COMPARISON: 06/18/2019. TECHNIQUE: SINGLE PORTABLE AP VIEW OF THE CHEST WAS PERFORMED. FINDINGS: THERE IS NO ACUTE INFILTRATE OR PULMONARY EDEMA. LUNGS ARE CLEAR. HEART IS NOT SIGNIFICANTLY ENLARGED. MEDIASTINAL SILHOUETTE IS UNREMARKABLE. THE VISUALIZED OSSEOUS STRUCTURES ARE INTACT. IMPRESSION: NO ACUTE PULMONARY DISEASE. <Electronically signed by Ricki Kirkpatrick > 07/01/20 [id number]
[2020-07-01] MEDS ORDERED: FENO145T7 PO (12:50)
[2020-07-01] MEDS ORDERED: FURO40TA2 PO (12:50)
[2020-07-01] MEDS ORDERED: POTA20TA6 PO (12:50)
[2020-07-01] MEDS ORDERED: GABA-282 PO (12:50)
[2020-07-01] MEDS ORDERED: IBUP80TA PO (12:50)
[2020-07-01] MEDS ORDERED: ZOCO80TA PO (12:50)
[2020-07-01] MEDS ORDERED: MONT10TA10 PO (12:50)
[2020-07-01] MEDS ORDERED: FAMO1TAB11 PO (12:50)
[2020-07-01 13:05] LABS: BASO % 0.4 % (0.0-1.0); EOS # 0.4 10^3/uL (0.0-0.5); EOS % 4.4 % (0.0-3.0); HEMATOCRIT 41.3 % (36.0-47.0); HEMOGLOBIN 13.6 g/dl (12.0-15.5); LYMPH # 1.8 10^3/uL (1.5-5.0); LYMPH % 20.1 % (24.0-44.0); MEAN CORPUSCULAR HEMOGLOBIN 28.9 pg (27.0-33.0); MEAN CORPUSCULAR HGB CONC 32.9 g/dl (32.0-36.5); MEAN CORPUSCULAR VOLUME 87.9 fl (80.0-96.0); MONO # 0.6 10^3/uL (0.0-0.8); MONO % 6.3 % (2.0-8.0); NEUTROPHILS # 6.1 10^3/uL (1.5-8.5); NEUTROPHILS % 68.5 % (36.0-66.0); PLATELET COUNT, AUTOMATED 318 10^3/uL (150-450)
[2020-07-01 13:18] LABS: PARTIAL THROMBOPLASTIN TIME 26.7 SECONDS (24.2-38.5); PROTHROMBIN TIME 13.4 SECONDS (12.5-14.3)
[2020-07-01 13:34] LABS: BLOOD UREA NITROGEN 24 MG/DL (7-18); CALCIUM LEVEL 9.6 MG/DL (8.8-10.2); CARBON DIOXIDE LEVEL 26 MEQ/L (21-32); CHLORIDE LEVEL 105 MEQ/L (98-107); CK-MB VALUE MASS 3.5 NG/ML (<3.6); CPK CREATINE PHOSPHOKINASE 167 U/L (26-192); CREATININE FOR GFR 1.21 MG/DL (0.55-1.30); GLOMERULAR FILTRATION RATE 47.1 (>45); GLUCOSE, FASTING 290 MG/DL (70-100); POTASSIUM SERUM 3.7 MEQ/L (3.5-5.1); SODIUM LEVEL 142 MEQ/L (136-145); TROPONIN I < 0.02 NG/ML (< 0.10)
[2020-07-01] MEDS ORDERED: ASPIRIN 325 MG TAB PO ONE (14:45)
--- NOTE | 2020-07-01 15:09 | HPEPDOC ---
[facility] Medical History & Physical Date of Admission Jul 01, 2020 Date of Service: Jul 01, 2020 History and Physical Chief complaint: Presented to ER with left-sided weakness and difficulty with speech History of present illness: Patient is a 69-year-old female who presented to the emergency room with left- sided weakness and difficulty with speech for 3 days. Patients daughter is present at the bedside, Philip ([phone]). She has provided the majority of the history and provided translation. Patient reported that on Saturday she was in her usual state of health. Garcia andrez, by Saturday night she began to experience some left leg weakness / difficulty with speech. Patients is familiar with her leg problems given her chronic back pain history, however, had brought her to the emergency room for evaluation of her difficulty with speech. Upon evaluation of patient in the ER, patient was evaluated for her lower back pain. Patient had a lumbar spine CT scan and intravascular ultrasound of her left lower leg which were essentially negative. She was given muscle relaxants and advised to follow-up with her primary care provider. On morning patient had reported left arm weakness/heaviness and persistence of her slurred speech and they had called their primary care provider, Dr. Angie Carvajal for an appointment. After discussion with their primary care provider, they were 5 to go to the ER for further evaluation. Patient reports currently that she has not experience any chest pain, shortness of breath, nausea, vomiting, abdominal pain or diarrhea. Has experience a bowel movement yesterday evening. Denies any urinary discomfort. Patient reports fatigue and chills but denies any fevers. Patient denies any changes in her weight and reports her appetite is fairly normal. She has reported that she has stopped taking baby aspirin 2 weeks ago because she had ran out. Patient is far outside the window to receive TPA. 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 Review of Systems: 10 point review of systems complete, all negative otherwise stated in HPI Physical exam: - Vitals: BP [150/113], HR [102], RR [18], Sat [96%RA], Temp [97.7F] - General: Lying in bed, Speaking in full sentences, AAOx3 - HEENT: NC, AT, PERRLA - CVS: RRR, +S1S2, - Lungs: Fair air entry bilaterally, No appreciable wheezing / rales / rhonchi - Abdomen: Soft, Non-distended, Non-tender - Extremities: No lower extremity edema, No calf tenderness - Neuro: 3-4/5 strength at L U/LE, 5/5 strength at R U/LE - Skin: No visible rashes Labs: See below Imaging: CT head 07/01: Vascular calcification. Otherwise negative non-contrast CT study of the brain. No acute intracranial abnormality.. CXR 07/01: NO ACUTE PULMONARY DISEASE. EKG: EKG reviewed; NSR without any ischemic changes noted Assessment and Plan: Left sided weakness - possibly 2/2 acute CVA - Resented the ER with worsening left-sided weakness associated with difficulty with speech - Patient has reported that she has been on ASA 81 as an outpatient, however, has stopped taking it 2 weeks ago - Hemodynamically stable - Physical with evidence of left-sided weakness - Imaging noted above - ER has given ASA 325 - Will check MRI Brain / MRA Brain / MRI C-spine / Cardiac risk profile / ECHO - Will c/w ASA 325 and Atorvastatin 80 HTN - Will allow for permissive hypertension - Stress test completed in [place]; reported negative 12 years ago - Will hold Lisinopril / HCTZ - c/w Amlodipine DLP - c/w Simvastatin NIDDM2 - Will check A1c - Will start ISS Neuropathy - Will c/w Gabapentin DARY (not on CPAP) Chronic back pain - c/w Tylenol PRN DVT prophylaxis - Will start Heparin Vital Signs Vital Signs Date Time Temp Pulse Resp B/P (MAP) Pulse Ox O2 Delivery O2 Flow Rate FiO2 07/01/20 11:30 97.7 102 18 150/113 (125) 96 Room Air Laboratory Data Labs 24H Laboratory Tests 2 07/01/20 12:40: Immature Granulocyte % (Auto) 0.3, Neutrophils (%) (Auto) 68.5H, Lymphocytes (%) (Auto) 20.1L, Monocytes (%) (Auto) 6.3H, Eosinophils (%) (Auto) 4.4H, Basophils (%) (Auto) 0.4, Neutrophils # (Auto) 6.1, Lymphocytes # (Auto) 1.8, Monocytes # (Auto) 0.6, Eosinophils # (Auto) 0.4, Basophils # (Auto) 0.0, Nucleated Red Blood Cells % (auto) 0.0, Prothrombin Time 13.4, Prothromb Time International Ratio 1.00, Activated Partial Thromboplast Time 26.7, Anion Gap 11, Glomerular Filtration Rate 47.1, Calcium Level 9.6, Total Creatine Kinase 167, Creatine Kinase MB 3.5, Creatine Kinase MB Relative Index 2.10, Troponin I < 0.02, Coronavirus (COVID-19)(PCR) NEGATIVE CBC/BMP Laboratory Tests 07/01/20 12:40 Home Medications Scheduled Amlodipine Besylate (Amlodipine Besylate) 10 Mg Tab, 10 MG PO DAILY Famotidine (Famotidine) 20 Mg Tablet, 20 MG PO BID Fenofibrate Nanocrystallized (Fenofibrate) 145 Mg Tablet, 145 MG PO DAILY Furosemide (Furosemide) 40 Mg Tablet, 40 MG PO DAILY Gabapentin (Gabapentin) 300 Mg Capsule, 300 MG PO QHS Glipizide (Glipizide ER) 5 Mg Tab, 10 MG PO BID Lisinopril/Hydrochlorothiazide (Lisinopril-Hctz 20-12.5 mg Tab) 1 Tab Tab, 1 TAB PO DAILY Metformin HCl (Metformin HCl) 1,000 Mg Tab, 1,000 MG PO BID Potassium Chloride (Potassium Chloride) 20 Meq Tab.er.prt, 20 MEQ PO BID Simvastatin (Zocor) 80 Mg Tablet, 80 MG PO QHS Scheduled PRN Ibuprofen (Ibuprofen) 800 Mg Tablet, 800 MG PO Q8H PRN for PAIN Montelukast Sodium (Montelukast Sodium) 10 Mg Tablet, 10 MG PO DAILY PRN for ALLERGIES Allergies Coded Allergies: No Known Allergies (Unverified , 06/19/19) ALISON ARBOLEDA MD Jul 01, 2020 15:09
[2020-07-01] MEDS ORDERED: MONTELUKAST 10 MG TAB PO PRN (15:15)
[2020-07-01] MEDS ORDERED: GLUCOSE 4GM CHEW TABLET PO PRN (15:15)
[2020-07-01] MEDS ORDERED: DEXTROSE 50% 50 ML SYRINGE IV PRN (15:15)
[2020-07-01] MEDS ORDERED: GLUCAGON INJ 1MG VIAL SC PRN (15:15)
--- OUTSIDE RECORDS SUMMARY | 2020-07-01 15:17 | CCD ---
Author Author [facility] Organization [facility] Address Unknown Phone Unavailable Care Team Providers Care Mortgage Loan Assistant Name Role Phone Ynes LAZO DPM Unavailable [...] Salazar MD Unavailable Unavailable Nevills, C Griselda FINISH PRODUCTION MANAGER Unavailable Unavailable Nevills, C Griselda FINISH PRODUCTION MANAGER Unavailable Unavailable Nevills, C Griselda FINISH PRODUCTION MANAGER Unavailable Unavailable Nevills, C Griselda FINISH PRODUCTION MANAGER Unavailable Unavailable Nevills, C Griselda FINISH PRODUCTION MANAGER Unavailable Unavailable Nevills, C Griselda FINISH PRODUCTION MANAGER Unavailable Unavailable Nevills, C Griselda FINISH PRODUCTION MANAGER Unavailable Unavailable Nevills, C Griselda FINISH PRODUCTION MANAGER Unavailable Unavailable Nevills, C Griselda FINISH PRODUCTION MANAGER Unavailable Unavailable Nevills, C Griselda FINISH PRODUCTION MANAGER Unavailable Unavailable Nevills, C Griselda FINISH PRODUCTION MANAGER Unavailable Unavailable Nevills, C Griselda FINISH PRODUCTION MANAGER Unavailable Unavailable Nevills, C Griselda FINISH PRODUCTION MANAGER Unavailable Unavailable Nevills, C Griselda FINISH PRODUCTION MANAGER Unavailable Unavailable Nevills, C Griselda FINISH PRODUCTION MANAGER Unavailable Unavailable Nevills, C Griselda FINISH PRODUCTION MANAGER Unavailable Unavailable Nevills, C Griselda FINISH PRODUCTION MANAGER Unavailable Unavailable Wei, Johana Angie ANP-BC Unavailable [...] Unavailable Wei, Johana Angie ANP-BC Unavailable Unavailable Ewi, Johana Angie ANP-BC Unavailable Unavailable Wei, Johana [...] Unavailable Wei, Johana Angie ANP-BC Unavailable Unavailable Ewi, Johana Angie ANP-BC Unavailable Unavailable Wei, Johana [...] is protected by Article 27-F of the [facility] Public Health law. If you continue you may have access to information: Regarding HIV / AIDS; Provided by facilities licensed or operated by the [facility] Office of Mental Health; or Provided by the [facility] Office for People With Developmental Disabilities. If such information is present, then the following [facility] mandated warning applies: This information has [...] law may result in a fine or fpc sentence or both. A general authorization for [...] 09:48:00 AM EST - 07/01/2020 09:48:00 AM [facility] Office Visit Attender: RENETTA LAZO [facility] Office 05/20 02:00:00 PM EST [facility] ([facility] Outpatient Attender: Angie URBAN 03/21 01:50:00 PM EST - 04/11/2020 01:50:00 PM [facility] Outpatient Attender: Angie URBAN [facility] 03/21 12:40:00 PM EST [facility] ([facility] Outpatient Attender: RENETTA CRUZ MD Physical Therapy 09:00:00 AM EDT [facility] ([facility]) Outpatient Attender: Angie URBAN 12/19 01:48:00 PM EDT - 01/07/2020 01:48:00 PM EDT [facility] Outpatient Attender: RENETTA CRUZ MD Physical Therapy 03:30:00 PM EDT [facility] ([facility]) Outpatient Attender: KAREL LOPEZ DPM PC 12/01/2019 03:48:00 PM EDT - 12/01/2019 03:48:00 PM EDT [facility] Outpatient Attender: Angie URBAN 09/18 01:32:00 PM EDT - 10/07/2019 01:32:00 PM EDT [facility] Outpatient Attender: RENETTA CRUZ MD Physical Therapy 02:30:00 PM EDT [facility] ([facility]) Outpatient Attender: Angie URBAN 08/19 01:29:00 PM EDT - 09/16/2019 01:29:00 PM EDT [facility] Outpatient Attender: Wei Salazar MD FP 2019 08:01:07 PM EDT [facility] Outpatient Referrer: RENETTA CRUZ MD [...] AM EST - 07/02/2019 10:56:00 AM EST [facility] Outpatient Attender: Angie URBAN Family Practice 06/20 09:40:00 AM EST [facility] ([facility] Outpatient Referrer: Lola MUNOZ 06/30/2019 01:30:00 PM EST [facility] Outpatient Attender: Angie URBAN 05/21 10:54:00 AM EST - 06/17/2019 10:54:00 AM EST [facility] Outpatient Attender: Angie URBAN 05/21 01:50:00 PM EST - 06/09/2019 01:50:00 PM EST [facility] Outpatient Attender: Angie URBAN Family Practice 05/21 12:40:00 PM EST [facility] ([facility]) Outpatient Attender: Wei Salazar MD 05/29/2019 08:01:01 PM EST [facility] Medications Medication Brand Name Start Date Product Form Dose Route Admi nistrative Instructions Pharmacy Instructions Status Indications Reaction Description Data Source(s) pioglitazone 30 MG Oral Tablet Pioglitazone HCL 01/14/2020 12:00:00 A M EDT ORAL active [facility] ([facility]) Potassium Chloride 20 MEQ Extended Release Oral Tablet Potas sium Chloride ER 01/13/2020 12:00:00 AM EDT ORAL active [facility] ([facility]) Fenofibrate 145 MG Oral Tablet Fenofibrate 01/07/2020 12:00:00 AM EDT ORAL active [facility] ([facility]) Linagliptin 5 MG Oral Tablet [Tradjenta] Tradjenta 01/07/2020 12 :00:00 AM EDT ORAL completed [facility] ([facility]) Clotrimazole 10 MG/ML Topical Cream Clotrimazole Anti-Fungal 10/07/2019 12:00:00 AM EDT active [facility] Furosemide 40 MG Oral Tablet Furosemide 09/16/2019 12:00:00 AM EDT ORAL active [facility] ([facility]) Ibuprofen 800 MG Oral Tablet Ibuprofen 07/28/2019 12:00:00 AM EDT ORAL active [facility] ([facility]) Onetouch Ultra 2 06/29/2019 12:00:00 AM EST a ctive [facility] ([facility]) Blood Glucose Test 06/24/2019 12:00:00 AM EST active [facility] ([facility]) Lancets 06/24/2019 12:00:00 AM EST active [facility] ([facility]) Reanna Montgomery 06/16/2019 12:00:00 AM EST completed [facility] ([facility]) 3 ML Insulin Glargine 100 UNT/ML Pen Injector [Lantus] Lantu s Solostar 06/16/2019 12:00:00 AM EST completed [facility] ([facility]) Morphine Sulfate 15 MG Extended Release Oral Tablet Morphine Sulfate ER 06/15/2019 12:00:00 AM EST ORAL active [facility] ([facility]) Oxycodone Hydrochloride 15 MG Oral Tablet Oxycodone HCL 06/15/2019 12:00:00 AM EST ORAL active [facility]) Ibuprofen 600 MG Oral Tablet Ibuprofen 06/15/2019 12:00:00 AM EST ORAL active [facility] ([facility] sitagliptin 100 MG Oral Tablet [Januvia] Januvia 06/09/2019 12:00: 00 AM EST ORAL active [facility] ([facility]) Famotidine 20 MG Oral Tablet Famotidine 06/09/2019 12:00:00 AM EST ORAL active [facility] ([facility]) Insurance Providers Payer name Policy type / Coverage type Policy ID Covered alliance party ID Covered alliance party's relationship to martinez Policy Martinez Plan Information WELLCARE [id number] SP [id number] WELLCARE [id number] SP [id number] [place] [id number] MEDICARE COMPLETE [id number] SP [id number] WELLCARE O [id number] S [id number] MEDICARE COMPLETE-UHC O [id number] S [id number] [place] [id number] 18 [id number] [facility] [place] [id number] 18 [id number] [facility] Secure Horizons P [id number] S [id number] Medicare Wrap S [id number] S [id number] UNITED HEALTHCARE O [id number] S [id number] MEDICARE C [id number] S [id number] A MEDICARE COMPLETE [id number] SP [id number] MEDICARE COMPLETE-UHC O [id number] S [id number] [place] [id number] 18 [id number] [facility] (Medicare) Commercial [id number] Self [id number] MEDICARE COMPLETE [id number] SP [id number] MEDICARE COMPLETE [id number] SP [id number] SELF PAY UNAVAILABLE SP UNAVAILA BLE [employer] Commercial [id number] Self [id number] Unitedhealthcare Secure Horizons P [id number] S [id number] MEDICARE COMPLETE [id number] SP [id number] MEDICARE COMPLETE-[facility] O [id number] S [id number] [employer] [facility] (Medicare) Commercial Self Medicare S [id number] S [id number] A [employer] HEALTHCARE O [id number] S [id number] Unitedhealthcare Secure Horizons P [id number] S [id number] [facility] Secure Horizons S [id number] S [id number] Self Pay S [id number] S [id number] Medicare O UNAVAILABLE O UNAVAILA BLE Sliding Fee Scale O [id number] S [id number] MEDICARE [id number] SP [id number] A Problems, Conditions, and Diagnoses Code Display Name Description Problem Type Effective Dates Data Source(s) 700600809 Taking medication Taking medication Problem 01/06 12:00:00 AM EDT [facility] ([facility]) [id number] Disorder of bursa of shoulder region Dis order of bursa of shoulder region Problem 01/07/2020 12:00:00 AM EDT [facility] ([facility]) [id number] Shoulder joint pain Shoulder joint pain Problem 0 01/07/2020 12:00:00 AM EDT [facility] ([facility]) [id number] Essential hypertension Essential hypertension Problem 01/07/2020 12:00:00 AM EDT [facility] ([facility]) [id number] Type II diabetes mellitus uncontrolled T ype II diabetes mellitus uncontrolled Problem 01/07/2020 12:00:00 AM EDT [facility] ([facility]) [id number] Onychomycosis Onychomycosis Problem 01/07/2020 12:00:00 AM EDT [facility] ([facility]) Corns and callosities Corns and callosities Problem 12/01/2019 12:00:00 AM EDT [facility] ([facility]) 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 Problem 12/01/2019 12:00:00 AM EDT [facility] ([facility]) [id number] Pain in limb Pain in limb Problem 12/01/2019 12:00:00 A M EDT [facility] ([facility]) 71447156 Dystrophia unguium Dystrophia unguium Problem 12:00:00 AM EDT [facility] ([facility]) [id number] Ingrowing nail Ingrowing nail Problem 12/01/2019 12:00: 00 AM EDT [facility] ([facility]) [id number] Pure hypercholesterolemia Pure hypercholesterolemia Pr oblem 07/30/2019 12:00:00 AM EDT [facility] ([facility] L600 Ingrowing nail Ingrowing nail Diagnosis 12/01/2019 03:48: 00 PM EDT [facility] [id number] Pain in left foot Pain in left foot Diagnosis 12/01/2019 03:48:00 PM EDT [facility] L84 Corns and callosities Corns and callosities Diagnosis 12/01/2019 03:48:00 PM EDT [facility] L603 Nail dystrophy Nail dystrophy Diagnosis 12/01/2019 03:48: 00 PM EDT [facility] E1149 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 Diagnosis 12/01/2019 03:48:00 PM EDT [facility] [id number] Pain in right shoulder Pain in right shoulder Diagnosi s 09/16/2019 01:29:00 PM EDT [facility] I10 Essential (primary) hypertension Essential (primary) h ypertension Diagnosis 09/16/2019 01:29:00 PM EDT [facility] E1165 Type 2 diabetes mellitus with hyperglyce jeanine Type 2 diabetes mellitus with hyperglycemia Diagnosis 09/16/2019 01:29:00 PM EDT [facility] R99 Ill-defined and unknown cause of mortali ty Ill-defined and unknown cause of mortality Diagnosis 06/17/2019 10:54:00 AM [facility] [id number] 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 ther ad terminal makeup operator (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 Diagnosis 06/09/2019 01:50:00 PM [facility] [id number] Encounter for other preprocedural examin ation Encounter for other preprocedural examination Diagnosis 06/09/2019 01:50:00 PM EST [facility] [id number] Unspecified rotator cuff tea r or rupture of right shoulder, not specified as traumatic Unspecified rotator cuff tear or rupture of right shoulder, not specified as traumatic Diagnosis 06/09/2019 01:50:00 PM EST [facility] Surgeries/Procedures Procedure Description Date Indications Data Source(s) PARING/CUTTING BENIGN HYPERKERATOTIC LESION 1 06/02/19 12:00:00 AM EST [facility] ([facility] DEBRIDEMENT NAIL ANY METHOD /> 06/02/2020 12:00:00 AM EST [facility] ([facility] RADEX SHOULDER COMPLETE MINIMUM 2 VIEWS 05/23/2020 12: 00:00 AM EST [facility] ([facility]) THERAPEUTIC PX 1/> AREAS EACH 15 MIN EXERCISES 12:00:00 AM EDT [facility] ([facility] THERAPEUTIC PX 1/> AREAS EACH 15 MIN EXERCISES 12:00:00 AM EDT [facility] ([facility] THERAPEUTIC PX 1/> AREAS EACH 15 MIN EXERCISES 12:00:00 AM EDT [facility] ([facility]) THERAPEUTIC PX 1/> AREAS EACH 15 MIN EXERCISES 12:00:00 AM EDT [facility] ([facility]) THERAPEUTIC PX 1/> AREAS EACH 15 MIN EXERCISES 12:00:00 AM EDT [facility] ([facility] THERAPEUTIC PX 1/> AREAS EACH 15 MIN EXERCISES 12:00:00 AM EDT [facility] ([facility] THERAPEUTIC PX 1/> AREAS EACH 15 MIN EXERCISES 12:00:00 AM EDT [facility] ([facility]) THERAPEUTIC PX 1/> AREAS EACH 15 MIN EXERCISES 12:00:00 AM EDT [facility] ([facility]) Pare Hyperkeratotic Lesion, 2-4 12/01/2019 12:00:00 AM EDT [facility] ([facility]) THERAPEUTIC PX 1/> AREAS EACH 15 MIN EXERCISES 12:00:00 AM EDT [facility] ([facility]) THERAPEUTIC PX 1/> AREAS EACH 15 MIN EXERCISES 12:00:00 AM EDT [facility] ([facility]) THERAPEUTIC PX 1/> AREAS EACH 15 MIN EXERCISES 12:00:00 AM EDT [facility] ([facility]) THERAPEUTIC PX 1/> AREAS EACH 15 MIN EXERCISES 12:00:00 AM EDT [facility] ([facility]) THERAPEUTIC PX 1/> AREAS EACH 15 MIN EXERCISES 12:00:00 AM EDT [facility] ([facility]) THERAPEUTIC PX 1/> AREAS EACH 15 MIN EXERCISES 12:00:00 AM EDT [facility] ([facility]) THERAPEUTIC PX 1/> AREAS EACH 15 MIN EXERCISES 12:00:00 AM EDT [facility] ([facility]) THERAPEUTIC PX 1/> AREAS EACH 15 MIN EXERCISES 12:00:00 AM EDT [facility] ([facility]) THERAPEUTIC PX 1/> AREAS EACH 15 MIN EXERCISES 12:00:00 AM EDT [facility] ([facility]) THERAPEUTIC PX 1/> AREAS EACH 15 MIN EXERCISES 12:00:00 AM EDT [facility] ([facility]) MANUAL THERAPY TQS 1/> REGIONS EACH 15 MINUTES 12:00:00 AM EDT [facility] ([facility]) THERAPEUTIC PX 1/> AREAS EACH 15 MIN EXERCISES 12:00:00 AM EDT [facility] ([facility]) THERAPEUTIC PX 1/> AREAS EACH 15 MIN EXERCISES 12:00:00 AM EDT [facility] ([facility]) MANUAL THERAPY TQS 1/> REGIONS EACH 15 MINUTES 12:00:00 AM EDT [facility] ([facility]) THERAPEUTIC PX 1/> AREAS EACH 15 MIN EXERCISES 12:00:00 AM EDT [facility] ([facility]) MANUAL THERAPY TQS 1/> REGIONS EACH 15 MINUTES 12:00:00 AM EDT [facility] ([facility] ) [place] 10/13/2019 12:00:00 AM EDT [facility] ([facility] THERAPEUTIC PX 1/> AREAS EACH 15 MIN EXERCISES 12:00:00 AM EDT [facility] ([facility] [place] 10/08/2019 12:00:00 AM EDT [facility] ([facility] ) THERAPEUTIC PX 1/> AREAS EACH 15 MIN EXERCISES 12:00:00 AM EDT [facility] ([facility] Admin Patient Focused Health Risk Assessment Instrument 10/07/2019 12:00:00 AM EDT [facility] THERAPEUTIC PX 1/> AREAS EACH 15 MIN EXERCISES 12:00:00 AM EDT [facility] ([facility] THERAPEUTIC PX 1/> AREAS EACH 15 MIN EXERCISES 12:00:00 AM EDT [facility] ([facility] ) THERAPEUTIC PX 1/> AREAS EACH 15 MIN EXERCISES 12:00:00 AM EDT [facility] ([facility] ) THERAPEUTIC PX 1/> AREAS EACH 15 MIN EXERCISES 12:00:00 AM EDT [facility] ([facility] ) THERAPEUTIC PX 1/> AREAS EACH 15 MIN EXERCISES 12:00:00 AM EDT [facility] ([facility] ) THERAPEUTIC PX 1/> AREAS EACH 15 MIN EXERCISES 12:00:00 AM EDT [facility] ([facility] ) THERAPEUTIC PX 1/> AREAS EACH 15 MIN EXERCISES 12:00:00 AM EDT [facility] ([facility] ) THERAPEUTIC PX 1/> AREAS EACH 15 MIN EXERCISES 12:00:00 AM EDT [facility] ([facility] ) THERAPEUTIC PX 1/> AREAS EACH 15 MIN EXERCISES 12:00:00 AM EDT [facility] ([facility] ) THERAPEUTIC PX 1/> AREAS EACH 15 MIN EXERCISES 12:00:00 AM EDT [facility] ([facility] ) THERAPEUTIC PX 1/> AREAS EACH 15 MIN EXERCISES 12:00:00 AM EDT [facility] ([facility] ) THERAPEUTIC PX 1/> AREAS EACH 15 MIN EXERCISES 12:00:00 AM EDT [facility] ([facility]) THERAPEUTIC PX 1/> AREAS EACH 15 MIN EXERCISES 12:00:00 AM EDT [facility] ([facility]) THERAPEUTIC PX 1/> AREAS EACH 15 MIN EXERCISES 12:00:00 AM EDT [facility] ([facility]) THERAPEUTIC PX 1/> AREAS EACH 15 MIN EXERCISES 12:00:00 AM EDT [facility] ([facility]) THERAPEUTIC PX 1/> AREAS EACH 15 MIN EXERCISES 12:00:00 AM EDT [facility] ([facility]) THERAPEUTIC PX 1/> AREAS EACH 15 MIN EXERCISES 12:00:00 AM EDT [facility] ([facility] ) Massage, Each 15 Minutes 08/11/2019 12:00:00 AM EDT [facility] ([facility] ) THERAPEUTIC PX 1/> AREAS EACH 15 MIN EXERCISES 12:00:00 AM EDT [facility] ([facility] ) Massage, Each 15 Minutes 08/06/2019 12:00:00 AM EDT [facility] ([facility] ) THERAPEUTIC PX 1/> AREAS EACH 15 MIN EXERCISES 12:00:00 AM EDT [facility] ([facility] ) Massage, Each 15 Minutes 08/04/2019 12:00:00 AM EDT [facility] ([facility]) THERAPEUTIC PX 1/> AREAS EACH 15 MIN EXERCISES 12:00:00 AM EDT [facility] ([facility] ) Massage, Each 15 Minutes 07/30/2019 12:00:00 AM EDT [facility] ([facility]) THERAPEUTIC PX 1/> AREAS EACH 15 MIN EXERCISES 12:00:00 AM EST [facility] ([facility] ) Massage, Each 15 Minutes 07/23/2019 12:00:00 AM EST [facility] ([facility] ) THERAPEUTIC PX 1/> AREAS EACH 15 MIN EXERCISES 12:00:00 AM EST [facility] ([facility] ) THERAPEUTIC PX 1/> AREAS EACH 15 MIN EXERCISES 020 12:00:00 AM EST [facility] ([facility]) Massage, Each 15 Minutes 07/16/2019 12:00:00 AM EST [facility] ([facility]) Physical Therapy Eval - Low Complexity 07/14/2019 12:0 0:00 AM EST [facility] ([facility]) TENODESIS LONG TENDON BICEPS 06/19/2019 12:00:00 AM ES T [facility] ([facility]) TENODESIS LONG TENDON BICEPS 06/19/2019 12:00:00 AM ES T [facility] ([facility]) Arthroscopy Shoulder Remove Loose/Foreign Body Dist Clavicul ectom 06/19/2019 12:00:00 AM EST [facility] ([facility]) Arthroscopy Shoulder Removal Loose/Foreign Body Dist Clavicu lecto 06/19/2019 12:00:00 AM EST [facility] ([facility]) SHOULDER SCOPE BONE SHAVING 06/19/2019 12:00:00 AM EST [facility] ([facility]) SHOULDER SCOPE BONE SHAVING 06/19/2019 12:00:00 AM EST [facility] ([facility]) Arthroscopy Shoulder Surgical With Rotator Cuff Repair 06/19/2019 12:00:00 AM EST [facility] ([facility]) Arthroscopy Shoulder Surgical W/Rotator Cuff Repair 06/19/2019 12:00:00 AM EST [facility] ([facility]) Results ID Date Data Source [id number] 01/06/2020 07:58:00 AM EDT [facility] ([facility]) Name Value Range Interpretation Code Description Data Maria M rce(s) Supporting Document(s) Thyrotropin [Units/volume] in Serum or Plasma 2.370 uIU/ML 0. 358-3.740 Normal (applies to non-numeric results) [facility] ([facility]) Magnesium [Mass/volume] in Serum or Plasma 1.7 mg/dL 1.8-2.4 Belo w low normal [facility] ([facility]) ID Date Data Source [id number] 01/06/2020 07:58:00 AM EDT [facility] ([facility]) Name Value Range Interpretation Code Description Data Maria M rce(s) Supporting Document(s) Triglycerides Level 272 mg/dL Above high normal [facility] ([facility]) HDL Cholesterol 31 mg/dL Below low normal [facility] ([facility]) Cholesterol Level 134 mg/dL Normal (applies to non-numeri c results) [facility] ([facility]) LDL Cholesterol 49 mg/dL Normal (applies to non-numeric results) [facility] ([facility]) Cholesterol Risk Ratio 4.322 Normal (applies to non-n umeric results) [facility] ([facility]) Non-HDL-C 103 mg/dL Normal (applies to non-numeric resul ts) [facility] ([facility]) ID Date Data Source [id number] 01/06/2020 07:58:00 AM EDT [facility] Name Value Range Interpretation Code Description Data Maria M rce(s) Supporting Document(s) Glucose, Fasting 274 mg/dL 70-100 Above high normal [facility] ([facility]) Blood Urea Nitrogen 20 mg/dL 7-18 Above high normal [facility] ([facility]) Creatinine For GFR 1.00 mg/dL 0.55-1.30 Normal (applies to non -numeric results) [facility]) Glomerular Filtration Rate 58.7 Normal (applies to n on-numeric results) [facility] ([facility]) <content>Units are mL/min/1.73 m2</content>
<content></content>
<content>Chronic Kidney Disease Staging per NKF:</content>
<content></content>
<content>Stage I & II GFR >=60 Normal to Mildly Decreased</content>
<content>Stage III GFR 30- 59 Moderately Decreased</content>
<content>Stage IV GFR 15-29 Severely Decreased</content>
<content>Stage V GFR <15 Very Little GFR Left</content>
<content>ESRD GFR <15 on COATING MIXER TENDER</content>
<content></content> Sodium Level 140 meq/L 136-145 Normal (applies to non-numeric res ults) [facility]) Potassium Serum 3.3 meq/L 3.5-5.1 Below low normal [facility] ([facility]) Chloride Level 102 meq/L 98-107 Normal (applies to non-numeric r esults) [facility] ([facility]) Calcium Level 9.1 mg/dL 8.8-10.2 Normal (applies to non-numeric re sults) [facility] ([facility]) Carbon Dioxide Level 29 meq/L 21-32 Normal (applies to non-num delmy results) [facility] ([facility]) Anion Gap 9 meq/L 8-16 Normal (applies to non-numeric resul ts) [facility] ([facility]) Alt/SGPT 27 U/L 12-78 Normal (applies to non-numeric resul ts) [facility] ([facility]) Ast/Sgot 17 U/L 7-37 Normal (applies to non-numeric resul ts) [facility] ([facility]) Alkaline Phosphatase 54 U/L 45-117 Normal (applies to non-num delmy results) [facility] ([facility]) Albumin 3.6 GM/DL 3.2-5.2 Normal (applies to non-numeric resul ts) [facility] ([facility]) Total Protein 7.2 GM/DL 6.4-8.2 Normal (applies to non-numeric re sults) [facility] ([facility]) Bilirubin,Total 0.4 mg/dL 0.2-1.0 Normal (applies to non-numeric results) [facility] ([facility]) Albumin/Globulin Ratio 1.0 1.2-2.2 Below low normal [facility] ([facility]) ID Date Data Source [id number] 01/06/2020 07:58:00 AM EDT [facility] ([facility]) Name Value Range Interpretation Code Description Data Maria M rce(s) Supporting Document(s) Hemoglobin A1c 10.7 % Normal (applies to non-numeric r esults) [facility] ([facility]) <content>REFERENCE RANGES:</content><br/ ><content></content>
<content><=5.6% NORMAL</content>
<content>5.7-6.4% SUGGESTS IMPAIRED GLUCOSE METABOLISM/PREDIABETIC</content>
<content>>= 6.5% ABNORMAL</content>
<content></content> Estimated Average Glucose 260 mg/dL 60-110 Above high [facility] ID Date Data Source [id number] 01/06/2020 07:58:00 AM EDT [facility] ([facility]) Name Value Range Interpretation Code Description Data Maria M rce(s) Supporting Document(s) White Blood Count 10.4 10 4.0-10.0 Above high normal [facility] ([facility]) Hematocrit 39.2 % 36.0-47.0 Normal (applies to non-numeric resul ts) [facility] ([facility]) Red Blood Count 4.61 10 4.00-5.40 Normal (applies to non-numeric results) [facility] ([facility]) Hemoglobin 13.4 g/dL 12.0-15.5 Normal (applies to non-numeric resul ts) [facility] ([facility]) Mean Corpuscular Volume 85.0 fl 80.0-96.0 Normal ( applies to non-numeric results) [facility] ([facility]) Mean Corpuscular HGB Conc 34.2 g/dL 32.0-36.5 Normal (applies to non-numeric results) [facility] ([facility]) Mean Corpuscular Hemoglobin 29.1 pg 27.0-33.0 Norm al (applies to non-numeric results) [facility] ([facility]) Platelet Count, Automated 290 10 150-450 Normal (applies to non-numeric results) [facility] ([facility]) Red Cell Distribution Width 12.8 % 11.5-14.5 Norm al (applies to non-numeric results) [facility] ([facility]) [place] % 6.0 % 0.0-5.0 Above high normal [facility] ([facility]) Neutrophils % 67.1 % 36.0-66.0 Above high normal [facility] ([facility]) Lymph % 20.2 % 24.0-44.0 Below low normal [facility] ( [facility]) Eos % 5.9 % 0.0-3.0 Above high normal [facility] ([facility]) Baso % 0.5 % 0.0-1.0 Normal (applies to non-numeric resul ts) [facility] ([facility]) Neutrophils # 7.0 10 1.5-8.5 Normal (applies to non-numeric re sults) [facility] ([facility]) Immature Granulocyte % 0.3 % 0-3.0 Normal (applies to non-n umeric results) [facility] ([facility]) Nucleated Red Blood Cell % 0.0 % 0-0 Normal (applies to n on-numeric results) [facility] ([facility]) Eos # 0.6 10 0.0-0.5 Above high normal [facility] ([facility]) [place] # 0.6 10 0.0-0.8 Normal (applies to non-numeric resul ts) [facility] ([facility]) Lymph # 2.1 10 1.5-5.0 Normal (applies to non-numeric resul ts) [facility] ([facility]) Baso # 0.1 10 0.0-0.2 Normal (applies to non-numeric resul ts) [facility] ([facility]) ID Date Data Source [id number] 10/02/2019 10:49:00 AM EDT [facility] ([facility]) Name Value Range Interpretation Code Description Data Maria M rce(s) Supporting Document(s) Thyrotropin [Units/volume] in Serum or Plasma 1.900 uIU/ML 0. 358-3.740 Normal (applies to non-numeric results) [facility] ([facility]) Magnesium [Mass/volume] in Serum or Plasma 1.8 mg/dL 1.8-2 .4 Normal (applies to non-numeric results) [facility] ([facility]) ID Date Data Source [id number] 10/02/2019 10:49:00 AM EDT [facility] ([facility]) Name Value Range Interpretation Code Description Data Maria M rce(s) Supporting Document(s) Triglycerides Level 240 mg/dL Above high normal [facility] ([facility]) HDL Cholesterol 33 mg/dL Below low normal [facility] ([facility]) Cholesterol Level 137 mg/dL Normal (applies to non-numeri c results) [facility] ([facility]) Non-HDL-C 104 mg/dL Normal (applies to non-numeric resul ts) [facility] Cholesterol Risk Ratio 4.151 Normal (applies to non-n umeric results) [facility]) LDL Cholesterol 56 mg/dL Normal (applies to non-numeric results) [facility] ([facility]) ID Date Data Source [id number] 10/02/2019 10:49:[address] [facility] ([facility]) Name Value Range Interpretation Code Description Data Maria M rce(s) Supporting Document(s) Glucose, Fasting 265 mg/dL 70-100 Above high normal [facility] Blood Urea Nitrogen 17 mg/dL 7-18 Normal (applies to non-nume shelly results) [facility] ([facility]) Creatinine For GFR 0.92 mg/dL 0.55-1.30 Normal (applies to non -numeric results) [facility] ([facility]) Glomerular Filtration Rate Laboratory test result Normal (applies to non- numeric results) [facility] ([facility]) <content>Units are mL/min/1.73 m2</content>
<content></content>
<content>Chronic Kidney Disease Staging per NKF:</content>
<content></content>
<content>Stage I & II GFR >=60 Normal to Mildly Decreased</content>
<content>Stage III GFR 30- 59 Moderately Decreased</content>
<content>Stage IV GFR 15-29 Severely Decreased</content>
<content>Stage V GFR <15 Very Little GFR Left</content>
<content>ESRD GFR <15 on COATING MIXER TENDER</content>
<content></content> Potassium Serum 3.5 meq/L 3.5-5.1 Normal (applies to non-numeric results) [facility]) Sodium Level 140 meq/L 136-145 Normal (applies to non-numeric res ults) [facility] ([facility]) Chloride Level 99 meq/L 98-107 Normal (applies to non-numeric r esults) [facility] ([facility]) Calcium Level 8.7 mg/dL 8.8-10.2 Below low normal [facility] ([facility]) Anion Gap 10 meq/L 8-16 Normal (applies to non-numeric resul ts) [facility] ([facility]) Carbon Dioxide Level 31 meq/L 21-32 Normal (applies to non-num delmy results) [facility] ([facility]) Ast/Sgot 12 U/L 7-37 Normal (applies to non-numeric resul ts) [facility] ([facility]) Bilirubin,Total 0.5 mg/dL 0.2-1.0 Normal (applies to non-numeric results) [facility] ([facility]) Alt/SGPT 24 U/L 12-78 Normal (applies to non-numeric resul ts) [facility] ([facility]) Alkaline Phosphatase 52 U/L 45-117 Normal (applies to non-num delmy results) [facility] ([facility]) Albumin 3.5 GM/DL 3.2-5.2 Normal (applies to non-numeric resul ts) [facility] ([facility]) Albumin/Globulin Ratio 1.0 1.2-2.2 Below low normal [facility] Total Protein 7.0 GM/DL 6.4-8.2 Normal (applies to non-numeric re sults) [facility] ([facility]) ID Date Data Source [id number] 10/02/2019 10:49:00 AM EDT [facility] ([facility]) Name Value Range Interpretation Code Description Data Maria M rce(s) Supporting Document(s) Hemoglobin A1c 10.0 % Normal (applies to non-numeric r esults) [facility]) REFERENCE RANGES: 4.5-5.6% NORMAL 5.7-6.4% SUGGESTS IMPAIRED GLUCOSE META BOLISM >= 6.5% ABNORMAL Estimated Average Glucose 240 mg/dL 60-110 Above high normal [facility] ([facility]) ID Date Data Source [id number] 10/02/2019 10:49:00 AM EDT [facility] ([facility]) Name Value Range Interpretation Code Description Data Maria M rce(s) Supporting Document(s) [place] % 6.9 % 0.0-5.0 Above high normal [facility] ([facility]) Neutrophils % 65.4 % 36.0-66.0 Normal (applies to non-numeric re sults) [facility] ([facility]) Lymph % 20.1 % 24.0-44.0 Below low normal [facility] ( [facility]) Immature Granulocyte % 0.4 % 0-3.0 Normal (applies to non-n umeric results) [facility] ([facility]) Eos % 6.6 % 0.0-3.0 Above high normal [facility] ([facility]) Baso % 0.6 % 0.0-1.0 Normal (applies to non-numeric resul ts) [facility] ([facility]) Lymph # 1.8 10 1.5-5.0 Normal (applies to non-numeric resul ts) [facility] ([facility]) [place] # 0.6 10 0.0-0.8 Normal (applies to non-numeric resul ts) [facility] ([facility]) Neutrophils # 5.9 10 1.5-8.5 Normal (applies to non-numeric re sults) [facility] ([facility]) Eos # 0.6 10 0.0-0.5 Above high normal [facility] ([facility]) Baso # 0.1 10 0.0-0.2 Normal (applies to non-numeric resul ts) [facility] ([facility]) ID Date Data Source [id number] 10/02/2019 10:49:00 AM EDT [facility] ([facility]) Name Value Range Interpretation Code Description Data Maria M rce(s) Supporting Document(s) Red Blood Count 4.51 10 4.00-5.40 Normal (applies to non-numeric results) [facility] ([facility]) Hemoglobin 12.9 g/dL 12.0-15.5 Normal (applies to non-numeric resul ts) [facility] ([facility]) White Blood Count 9.1 10 4.0-10.0 Normal (applies to non-numeri c results) [facility] ([facility]) Hematocrit 39.0 % 36.0-47.0 Normal (applies to non-numeric resul ts) [facility] ([facility]) Mean Corpuscular Hemoglobin 28.6 pg 27.0-33.0 Norm al (applies to non-numeric results) [facility] ([facility]) Mean Corpuscular Volume 86.5 fl 80.0-96.0 Normal ( applies to non-numeric results) [facility] ([facility]) Nucleated Red Blood Cell % 0.0 % 0-0 Normal (applies to n on-numeric results) [facility] ([facility]) Mean Corpuscular HGB Conc 33.1 g/dL 32.0-36.5 Normal (applies to non-numeric results) [facility] ([facility]) Red Cell Distribution Width 12.2 % 11.5-14.5 Norm al (applies to non-numeric results) [facility] ([facility]) Platelet Count, Automated 285 10 150-450 Normal (applies to non-numeric results) [facility] ([facility]) ID Date Data Source [id number] 07/28/2019 12:00:00 AM EDT [facility] Renetta Cruz MD Patient Name: CLARA [id number] Date of : 1950 89 Date of Exam: 07/28/2019LAZARO Berman [id number]#: Fax: [phone] EXAM: US EXTREMITY VEINS, UNILATERALCLINICAL [...] the procedure due to pain and decreased [id number]. ColorDoppler imaging suggested patency of the right [...] rce(s) Supporting Document(s) ID Date Data Source [id number] 06/20/2019 11:45:00 AM EST [facility] ([facility] ) Name Value Range Interpretation Code Description Data Maria M rce(s) Supporting Document(s) Glucose [Mass/volume] in Capillary blood by Glucometer 297 mg/dL 80- 115 [facility] ) ID Date Data Source [id number] 06/20/2019 07:11:00 AM EST [facility] ([facility]) Name Value Range Interpretation Code Description Data Maria M rce(s) Supporting Document(s) Glucose [Mass/volume] in Capillary blood by Glucometer 217 mg/dL 80- 115 [facility] ([facility]) ID Date Data Source [id number] 06/20/2019 06:42:00 AM EST [facility] ([facility]) Name Value Range Interpretation Code Description Data Maria M rce(s) Supporting Document(s) Troponin I.cardiac [Mass/volume] in Serum or Plasma Laboratory test result [facility]) <content>Troponin I Reference Interval f or Siemens [place] LOCI:</content>
<content></content>
<content>99th Percentile= 0.00-0.045 ng/ml</content>
<content></content>
<content>Risk Stratification:</content>
<content><= 0.10 ng/ml Decreased Risk for Adverse Clinical</content>
<content>Events.</content>
<content>0.10-1.50 ng/ml Increased Risk for Adverse Clinical</content>
<content>Events. Evaluation of additional</content>
<content>criterion and/or repeat testing in 2-6</content>
<content>hours is suggested to rule out myocardial</content>
<content>damage.</content>
<content>>= 1.50 ng/ml Indicative of Myocardial Injury.</content>
<content></content> ID Date Data Source [id number] 06/19/2019 09:43:00 PM EST [facility] ([facility]) Name Value Range Interpretation Code Description Data Maria M rce(s) Supporting Document(s) Troponin I.cardiac [Mass/volume] in Serum or Plasma Laboratory test result [facility] ([facility]) <content>Troponin I Reference Interval f or Siemens [place] LOCI:</content>
<content></content>
<content>99th Percentile= 0.00-0.045 ng/ml</content>
<content></content>
<content>Risk Stratification:</content>
<content><= 0.10 ng/ml Decreased Risk for Adverse Clinical</content>
<content>Events.</content>
<content>0.10-1.50 ng/ml Increased Risk for Adverse Clinical</content>
<content>Events. Evaluation of additional</content>
<content>criterion and/or repeat testing in 2-6</content>
<content>hours is suggested to rule out myocardial</content>
<content>damage.</content>
<content>>= 1.50 ng/ml Indicative of Myocardial Injury.</content>
<content></content> ID Date Data Source [id number] 06/19/2019 08:05:00 PM EST [facility] ([facility]) Name Value Range Interpretation Code Description Data Maria M rce(s) Supporting Document(s) Glucose [Mass/volume] in Capillary blood by Glucometer 259 mg/dL 80- 115 [facility] ([facility]) ID Date Data Source [id number] 06/19/2019 05:06:00 PM EST [facility] ([facility]) Name Value Range Interpretation Code Description Data Maria M rce(s) Supporting Document(s) Glucose [Mass/volume] in Capillary blood by Glucometer 251 mg/dL 80- 115 [facility] ([facility]) ID Date Data Source [id number] 06/19/2019 03:52:00 PM EST [facility] ([facility]) Name Value Range Interpretation Code Description Data Maria M rce(s) Supporting Document(s) Troponin I.cardiac [Mass/volume] in Serum or Plasma Laboratory test result [facility] ([facility]) <content>Troponin I Reference Interval f or Siemens [place] LOCI:</content>
<content></content>
<content>99th Percentile= 0.00-0.045 ng/ml</content>
<content></content>
<content>Risk Stratification:</content>
<content><= 0.10 ng/ml Decreased Risk for Adverse Clinical</content>
<content>Events.</content>
<content>0.10-1.50 ng/ml Increased Risk for Adverse Clinical</content>
<content>Events. Evaluation of additional</content>
<content>criterion and/or repeat testing in 2-6</content>
<content>hours is suggested to rule out myocardial</content>
<content>damage.</content>
<content>>= 1.50 ng/ml Indicative of Myocardial Injury.</content>
<content></content> ID Date Data Source [id number] 06/19/2019 03:52:00 PM EST [facility] ([facility]) Name Value Range Interpretation Code Description Data Maria M rce(s) Supporting Document(s) Glucose, Fasting 294 mg/dL 70-100 [facility] ([facility]) Creatinine For GFR 1.08 mg/dL 0.55-1.30 [facility] ([facility]) Blood Urea Nitrogen 20 mg/dL 7-18 [facility] ([facility]) Sodium Level 138 meq/L 136-145 [facility] ([facility]) Glomerular Filtration Rate 53.9 [facility] ([facility]) <content>Units are mL/min/1.73 m2</content>
<content></content>
<content>Chronic Kidney Disease Staging per NKF:</content>
<content></content>
<content>Stage I & II GFR >=60 Normal to Mildly Decreased</content>
<content>Stage III GFR 30- 59 Moderately Decreased</content>
<content>Stage IV GFR 15-29 Severely Decreased</content>
<content>Stage V GFR <15 Very Little GFR Left</content>
<content>ESRD GFR <15 on COATING MIXER TENDER</content>
<content></content> Chloride Level 103 meq/L 98-107 [facility] ([facility]) Carbon Dioxide Level 24 meq/L 21-32 [facility] ([facility]) Potassium Serum 3.2 meq/L 3.5-5.1 [facility] ([facility]) Calcium Level 8.9 mg/dL 8.8-10.2 [facility] ([facility]) Anion Gap 11 meq/L 8-16 [facility] ID Date Data Source [id number] 06/19/2019 03:52:00 PM EST [facility] ([facility]) Name Value Range Interpretation Code Description Data Maria M rce(s) Supporting Document(s) CPK Creatine Phosphokinase 176 U/L 26-192 [facility] ([facility]) CK-MB Value Mass 2.8 ng/mL [facility] ([facility]) MB/CK Relative Index 1.59 [facility]) <content>DIAGNOSIS CRITERIA</content>
<content>MMB ng/ml Relative Index (RI)</content>
<content>NON-AMI < or = 5 N/A</content>
<content>[place] > 5 < or = 4</content>
<content>AMI > 5 > 4</content>
<content></content> ID Date Data Source [id number] 06/19/2019 03:52:00 PM EST [facility] ([facility]) Name Value Range Interpretation Code Description Data Maria M rce(s) Supporting Document(s) Red Blood Count 4.95 10 4.00-5.40 [facility] ([facility]) Hematocrit 44.0 % 36.0-47.0 [facility] ([facility]) White Blood Count 11.4 10 4.0-10.0 [facility] ([facility] ) Hemoglobin 14.2 g/dL 12.0-15.5 [facility] ([facility]) Mean Corpuscular HGB Conc 32.3 g/dL 32.0-36.5 [facility] ([facility]) Mean Corpuscular Hemoglobin 28.7 pg 27.0-33.0 [facility] ([facility]) Mean Corpuscular Volume 88.9 fl 80.0-96.0 [facility] ([facility]) Platelet Count, Automated 304 10 150-450 [facility] ([facility]) Red Cell Distribution Width 12.0 % 11.5-14.5 [facility] ([facility]) Nucleated Red Blood Cell % 0.0 % 0-0 [facility] ([facility]) ID Date Data Source [id number] 06/19/2019 02:58:00 PM EST [facility] ([facility]) Name Value Range Interpretation Code Description Data Maria M rce(s) Supporting Document(s) Glucose [Mass/volume] in Capillary blood by Glucometer 315 mg/dL 80- 115 [facility] ([facility]) ID Date Data Source [id number] 06/19/2019 01:01:00 PM EST [facility] ([facility]) Name Value Range Interpretation Code Description Data Maria M rce(s) Supporting Document(s) Surgical pathology study Laboratory test result [facility] ([facility]) FINAL DIAGNOSIS Right biceps proximal tendon: Portion of benign tendon without significant pathologic findings. 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 [employer] sections submitted in one cassette. -MS 06/22/2019 - 1306 Signed KIP ARAUZ MD 06/23/2019 1326 ID Date Data Source [id number] 06/19/2019 09:28:[address] [facility] ([facility]) Name Value Range Interpretation Code Description Data Maria M rce(s) Supporting Document(s) Glucose [Mass/volume] in Capillary blood by Glucometer 243 mg/dL 80- [address] [facility] ([facility]) ID Date Data Source [id number] 06/10/2019 05:12:00 PM [facility] Name Value Range Interpretation Code Description Data Maria M rce(s) Supporting Document(s) Prothrombin time (PT) 13.2 SECONDS 11.0 - 15.5 [facility] INR in Platelet poor plasma by Coagulation assay 0.99 0.93 - 1. 23 [facility] \\BLDo\\INR INTERPRETATION\\BLDx\\ Therapeutic range for Coumadin and related oral anticoagulants. - International Normalized Ratio (INR): 2.0 - 3.0 for Venous Thrombosis, Pulmonary Embolus, Tissue heart valves, Acute CT, Atrial Fibrillation, Valvular heart disease and recurrent Systemic Embolism. -International Normalized Ratio (INR): 2.5 - 3.5 for Mechanical Prosthetic valve. ID Date Data Source [id number] 06/09/2019 02:40:[address] [facility] ([facility]) Name Value Range Interpretation Code Description Data Maria M rce(s) Supporting Document(s) Hemoglobin A1c/Hemoglobin.total in Blood 11.0 % 4.4-6.1 Above high normal [facility] ([facility]) .~.~<DG1.3.1>Z01.812</DG1.3.1><DG1.3.1>E11.65</DG1.3.1><DG1.3.1>Z79.899</DG1.3.1 ><DG Is patient fasting? N~.~.~<DG1.3.1>Z01.812</DG1.3.1><DG1.3.1>E11.65</DG1.3.1><DG1.3.1>Z79.899</D .~.~<DG1.3.1> Z01.812</DG1.3.1><DG1.3.1>E11.65</DG1.3.1><DG1.3.1>Z79.899</DG1.3.1><DG .~.~<DG1.3.1>Z01.812</DG1.3.1><DG1.3.1>E11.65</DG1.3.1><DG1.3.1>Z79.899</DG1.3.1 ><DG ID Date Data Source [id number] 06/09/2019 02:40:00 PM EST [facility] ([facility]) Name Value Range Interpretation Code Description Data Maria M rce(s) Supporting Document(s) Inr 0.99 0.93-1.23 [facility] ([facility]) .~.~<DG1.3.1>Z01.812</DG1.3.1><DG1.3.1>E11.65</DG1.3.1><DG1.3.1>Z79.899</DG1.3.1 ><DG Is patient fasting? N~.~.~<DG1.3.1>Z01.812</DG1.3.1><DG1.3.1>E11.65</DG1.3.1><DG1.3.1>Z79.899</D .~.~<DG1.3.1> Z01.812</DG1.3.1><DG1.3.1>E11.65</DG1.3.1><DG1.3.1>Z79.899</DG1.3.1><DG .~.~<DG1.3.1>Z01.812</DG1.3.1><DG1.3.1>E11.65</DG1.3.1><DG1.3.1>Z79.899</DG1.3.1 ><DG Protime 13.2 s 11.0-15.5 [facility] ([facility]) .~.~<DG1.3.1>Z01.812</DG1.3.1><DG1.3.1>E11.65</DG1.3.1><DG1.3.1>Z79.899</DG1.3.1 ><DG Is patient fasting? N~.~.~<DG1.3.1>Z01.812</DG1.3.1><DG1.3.1>E11.65</DG1.3.1><DG1.3.1>Z79.899</D .~.~<DG1.3.1> Z01.812</DG1.3.1><DG1.3.1>E11.65</DG1.3.1><DG1.3.1>Z79.899</DG1.3.1><DG .~.~<DG1.3.1>Z01.812</DG1.3.1><DG1.3.1>E11.65</DG1.3.1><DG1.3.1>Z79.899</DG1.3.1 ><DG ID Date Data Source [id number] 06/09/2019 02:40:00 PM EST [facility] ([facility]) Name Value Range Interpretation Code Description Data Maria M rce(s) Supporting Document(s) PTT 33.3 s 24.8-36.7 [facility] ([facility]) .~.~<DG1.3.1>Z01.812</DG1.3.1><DG1.3.1>E11.65</DG1.3.1><DG1.3.1>Z79.899</DG1.3.1 ><DG Is patient fasting? N~.~.~<DG1.3.1>Z01.812</DG1.3.1><DG1.3.1>E11.65</DG1.3.1><DG1.3.1>Z79.899</D .~.~<DG1.3.1> Z01.812</DG1.3.1><DG1.3.1>E11.65</DG1.3.1><DG1.3.1>Z79.899</DG1.3.1><DG .~.~<DG1.3.1>Z01.812</DG1.3.1><DG1.3.1>E11.65</DG1.3.1><DG1.3.1>Z79.899</DG1.3.1 ><DG Inr 0.99 0.93-1.[address] [facility] ([facility]) .~.~<DG1.3.1>Z01.812</DG1.3.1><DG1.3.1>E11.65</DG1.3.1><DG1.3.1>Z79.899</DG1.3.1 ><DG Is patient fasting? N~.~.~<DG1.3.1>Z01.812</DG1.3.1><DG1.3.1>E11.65</DG1.3.1><DG1.3.1>Z79.899</D .~.~<DG1.3.1> Z01.812</DG1.3.1><DG1.3.1>E11.65</DG1.3.1><DG1.3.1>Z79.899</DG1.3.1><DG .~.~<DG1.3.1>Z01.812</DG1.3.1><DG1.3.1>E11.65</DG1.3.1><DG1.3.1>Z79.899</DG1.3.1 ><DG Protime 13.2 s 11.0-15.5 [facility] ([facility]) .~.~<DG1.3.1>Z01.812</DG1.3.1><DG1.3.1>E11.65</DG1.3.1><DG1.3.1>Z79.899</DG1.3.1 ><DG Is patient fasting? N~.~.~<DG1.3.1>Z01.812</DG1.3.1><DG1.3.1>E11.65</DG1.3.1><DG1.3.1>Z79.899</D .~.~<DG1.3.1> Z01.812</DG1.3.1><DG1.3.1>E11.65</DG1.3.1><DG1.3.1>Z79.899</DG1.3.1><DG .~.~<DG1.3.1>Z01.812</DG1.3.1><DG1.3.1>E11.65</DG1.3.1><DG1.3.1>Z79.899</DG1.3.1 ><DG ID Date Data Source [id number] 06/09/2019 02:40:00 PM EST [facility] ([facility]) Name Value Range Interpretation Code Description Data Maria M rce(s) Supporting Document(s) Comprehensive [employer] Laboratory test result [facility] ([facility]) .~.~<DG1.3.1>Z01.812</DG1.3.1><DG1.3.1>E11.65</DG1.3.1><DG1.3.1>Z79.899</DG1.3.1 ><DG Is patient fasting? N~.~.~<DG1.3.1>Z01.812</DG1.3.1><DG1.3.1>E11.65</DG1.3.1><DG1.3.1>Z79.899</D .~.~<DG1.3.1> Z01.812</DG1.3.1><DG1.3.1>E11.65</DG1.3.1><DG1.3.1>Z79.899</DG1.3.1><DG .~.~<DG1.3.1>Z01.812</DG1.3.1><DG1.3.1>E11.65</DG1.3.1><DG1.3.1>Z79.899</DG1.3.1 ><DG Sodium 140 meq/L 134-153 [facility] ([facility]) .~.~<DG1.3.1>Z01.812</DG1.3.1><DG1.3.1>E11.65</DG1.3.1><DG1.3.1>Z79.899</DG1.3.1 ><DG Is patient fasting? N~.~.~<DG1.3.1>Z01.812</DG1.3.1><DG1.3.1>E11.65</DG1.3.1><DG1.3.1>Z79.899</D .~.~<DG1.3.1> Z01.812</DG1.3.1><DG1.3.1>E11.65</DG1.3.1><DG1.3.1>Z79.899</DG1.3.1><DG .~.~<DG1.3.1>Z01.812</DG1.3.1><DG1.3.1>E11.65</DG1.3.1><DG1.3.1>Z79.899</DG1.3.1 ><DG Chloride 99 meq/L 98-107 [facility] ([facility]) .~.~<DG1.3.1>Z01.812</DG1.3.1><DG1.3.1>E11.65</DG1.3.1><DG1.3.1>Z79.899</DG1.3.1 ><DG Is patient fasting? N~.~.~<DG1.3.1>Z01.812</DG1.3.1><DG1.3.1>E11.65</DG1.3.1><DG1.3.1>Z79.899</D .~.~<DG1.3.1> Z01.812</DG1.3.1><DG1.3.1>E11.65</DG1.3.1><DG1.3.1>Z79.899</DG1.3.1><DG .~.~<DG1.3.1>Z01.812</DG1.3.1><DG1.3.1>E11.65</DG1.3.1><DG1.3.1>Z79.899</DG1.3.1 ><DG Potassium 4.3 meq/L 3.6-5.0 [facility] ([facility]) .~.~<DG1.3.1>Z01.812</DG1.3.1><DG1.3.1>E11.65</DG1.3.1><DG1.3.1>Z79.899</DG1.3.1 ><DG Is patient fasting? N~.~.~<DG1.3.1>Z01.812</DG1.3.1><DG1.3.1>E11.65</DG1.3.1><DG1.3.1>Z79.899</D .~.~<DG1.3.1> Z01.812</DG1.3.1><DG1.3.1>E11.65</DG1.3.1><DG1.3.1>Z79.899</DG1.3.1><DG .~.~<DG1.3.1>Z01.812</DG1.3.1><DG1.3.1>E11.65</DG1.3.1><DG1.3.1>Z79.899</DG1.3.1 ><DG Co2 26 meq/L 22-30 [facility] ([facility]) .~.~<DG1.3.1>Z01.812</DG1.3.1><DG1.3.1>E11.65</DG1.3.1><DG1.3.1>Z79.899</DG1.3.1 ><DG Is patient fasting? N~.~.~<DG1.3.1>Z01.812</DG1.3.1><DG1.3.1>E11.65</DG1.3.1><DG1.3.1>Z79.899</D .~.~<DG1.3.1> Z01.812</DG1.3.1><DG1.3.1>E11.65</DG1.3.1><DG1.3.1>Z79.899</DG1.3.1><DG .~.~<DG1.3.1>Z01.812</DG1.3.1><DG1.3.1>E11.65</DG1.3.1><DG1.3.1>Z79.899</DG1.3.1 ><DG Glucose 293 mg/dL 65-110 Above high normal [facility] ([facility]) .~.~<DG1.3.1>Z01.812</DG1.3.1><DG1.3.1>E11.65</DG1.3.1><DG1.3.1>Z79.899</DG1.3.1 ><DG Is patient fasting? N~.~.~<DG1.3.1>Z01.812</DG1.3.1><DG1.3.1>E11.65</DG1.3.1><DG1.3.1>Z79.899</D .~.~<DG1.3.1> Z01.812</DG1.3.1><DG1.3.1>E11.65</DG1.3.1><DG1.3.1>Z79.899</DG1.3.1><DG .~.~<DG1.3.1>Z01.812</DG1.3.1><DG1.3.1>E11.65</DG1.3.1><DG1.3.1>Z79.899</DG1.3.1 ><DG Creatinine 0.8 mg/dL 0.7-1.5 [facility] ([facility]) .~.~<DG1.3.1>Z01.812</DG1.3.1><DG1.3.1>E11.65</DG1.3.1><DG1.3.1>Z79.899</DG1.3.1 ><DG Is patient fasting? N~.~.~<DG1.3.1>Z01.812</DG1.3.1><DG1.3.1>E11.65</DG1.3.1><DG1.3.1>Z79.899</D .~.~<DG1.3.1> Z01.812</DG1.3.1><DG1.3.1>E11.65</DG1.3.1><DG1.3.1>Z79.899</DG1.3.1><DG .~.~<DG1.3.1>Z01.812</DG1.3.1><DG1.3.1>E11.65</DG1.3.1><DG1.3.1>Z79.899</DG1.3.1 ><DG BUN 16 mg/dL 7-21 [facility] ([facility]) .~.~<DG1.3.1>Z01.812</DG1.3.1><DG1.3.1>E11.65</DG1.3.1><DG1.3.1>Z79.899</DG1.3.1 ><DG Is patient fasting? N~.~.~<DG1.3.1>Z01.812</DG1.3.1><DG1.3.1>E11.65</DG1.3.1><DG1.3.1>Z79.899</D .~.~<DG1.3.1> Z01.812</DG1.3.1><DG1.3.1>E11.65</DG1.3.1><DG1.3.1>Z79.899</DG1.3.1><DG .~.~<DG1.3.1>Z01.812</DG1.3.1><DG1.3.1>E11.65</DG1.3.1><DG1.3.1>Z79.899</DG1.3.1 ><DG Total Protein 7.3 g/dL 6.3-8.2 [facility] .~.~<DG1.3.1>Z01.812</DG1.3.1><DG1.3.1>E11.65</DG1.3.1><DG1.3.1>Z79.899</DG1.3.1 ><DG Is patient fasting? N~.~.~<DG1.3.1>Z01.812</DG1.3.1><DG1.3.1>E11.65</DG1.3.1><DG1.3.1>Z79.899</D .~.~<DG1.3.1> Z01.812</DG1.3.1><DG1.3.1>E11.65</DG1.3.1><DG1.3.1>Z79.899</DG1.3.1><DG .~.~<DG1.3.1>Z01.812</DG1.3.1><DG1.3.1>E11.65</DG1.3.1><DG1.3.1>Z79.899</DG1.3.1 ><DG BUN/Creat 20 8-27 [facility] .~.~<DG1.3.1>Z01.812</DG1.3.1><DG1.3.1>E11.65</DG1.3.1><DG1.3.1>Z79.899</DG1.3.1 ><DG Is patient fasting? N~.~.~<DG1.3.1>Z01.812</DG1.3.1><DG1.3.1>E11.65</DG1.3.1><DG1.3.1>Z79.899</D .~.~<DG1.3.1> Z01.812</DG1.3.1><DG1.3.1>E11.65</DG1.3.1><DG1.3.1>Z79.899</DG1.3.1><DG .~.~<DG1.3.1>Z01.812</DG1.3.1><DG1.3.1>E11.65</DG1.3.1><DG1.3.1>Z79.899</DG1.3.1 ><DG Globulin 2.9 GM/DL 2.4-3.2 [facility] ([facility]) .~.~<DG1.3.1>Z01.812</DG1.3.1><DG1.3.1>E11.65</DG1.3.1><DG1.3.1>Z79.899</DG1.3.1 ><DG Is patient fasting? N~.~.~<DG1.3.1>Z01.812</DG1.3.1><DG1.3.1>E11.65</DG1.3.1><DG1.3.1>Z79.899</D .~.~<DG1.3.1> Z01.812</DG1.3.1><DG1.3.1>E11.65</DG1.3.1><DG1.3.1>Z79.899</DG1.3.1><DG .~.~<DG1.3.1>Z01.812</DG1.3.1><DG1.3.1>E11.65</DG1.3.1><DG1.3.1>Z79.899</DG1.3.1 ><DG Albumin 4.4 g/dL 3.9-5.0 [facility] ([facility]) .~.~<DG1.3.1>Z01.812</DG1.3.1><DG1.3.1>E11.65</DG1.3.1><DG1.3.1>Z79.899</DG1.3.1 ><DG Is patient fasting? N~.~.~<DG1.3.1>Z01.812</DG1.3.1><DG1.3.1>E11.65</DG1.3.1><DG1.3.1>Z79.899</D .~.~<DG1.3.1> Z01.812</DG1.3.1><DG1.3.1>E11.65</DG1.3.1><DG1.3.1>Z79.899</DG1.3.1><DG .~.~<DG1.3.1>Z01.812</DG1.3.1><DG1.3.1>E11.65</DG1.3.1><DG1.3.1>Z79.899</DG1.3.1 ><DG A/G Ratio 1.5 0.8-2.0 [facility] ([facility]) .~.~<DG1.3.1>Z01.812</DG1.3.1><DG1.3.1>E11.65</DG1.3.1><DG1.3.1>Z79.899</DG1.3.1 ><DG Is patient fasting? N~.~.~<DG1.3.1>Z01.812</DG1.3.1><DG1.3.1>E11.65</DG1.3.1><DG1.3.1>Z79.899</D .~.~<DG1.3.1> Z01.812</DG1.3.1><DG1.3.1>E11.65</DG1.3.1><DG1.3.1>Z79.899</DG1.3.1><DG .~.~<DG1.3.1>Z01.812</DG1.3.1><DG1.3.1>E11.65</DG1.3.1><DG1.3.1>Z79.899</DG1.3.1 ><DG Calcium 9.7 mg/dL 8.4-10.2 [facility] .~.~<DG1.3.1>Z01.812</DG1.3.1><DG1.3.1>E11.65</DG1.3.1><DG1.3.1>Z79.899</DG1.3.1 ><DG Is patient fasting? N~.~.~<DG1.3.1>Z01.812</DG1.3.1><DG1.3.1>E11.65</DG1.3.1><DG1.3.1>Z79.899</D .~.~<DG1.3.1> Z01.812</DG1.3.1><DG1.3.1>E11.65</DG1.3.1><DG1.3.1>Z79.899</DG1.3.1><DG .~.~<DG1.3.1>Z01.812</DG1.3.1><DG1.3.1>E11.65</DG1.3.1><DG1.3.1>Z79.899</DG1.3.1 ><DG Alkaline Phos 52 U/L 38-126 [facility] ([facility]) .~.~<DG1.3.1>Z01.812</DG1.3.1><DG1.3.1>E11.65</DG1.3.1><DG1.3.1>Z79.899</DG1.3.1 ><DG Is patient fasting? N~.~.~<DG1.3.1>Z01.812</DG1.3.1><DG1.3.1>E11.65</DG1.3.1><DG1.3.1>Z79.899</D .~.~<DG1.3.1> Z01.812</DG1.3.1><DG1.3.1>E11.65</DG1.3.1><DG1.3.1>Z79.899</DG1.3.1><DG .~.~<DG1.3.1>Z01.812</DG1.3.1><DG1.3.1>E11.65</DG1.3.1><DG1.3.1>Z79.899</DG1.3.1 ><DG Total Bili 0.7 mg/dL 0.2-1.3 [facility] ([facility]) .~.~<DG1.3.1>Z01.812</DG1.3.1><DG1.3.1>E11.65</DG1.3.1><DG1.3.1>Z79.899</DG1.3.1 ><DG Is patient fasting? N~.~.~<DG1.3.1>Z01.812</DG1.3.1><DG1.3.1>E11.65</DG1.3.1><DG1.3.1>Z79.899</D .~.~<DG1.3.1> Z01.812</DG1.3.1><DG1.3.1>E11.65</DG1.3.1><DG1.3.1>Z79.899</DG1.3.1><DG .~.~<DG1.3.1>Z01.812</DG1.3.1><DG1.3.1>E11.65</DG1.3.1><DG1.3.1>Z79.899</DG1.3.1 ><DG Sgot/Ast 21 U/L 5-40 [facility] ([facility]) .~.~<DG1.3.1>Z01.812</DG1.3.1><DG1.3.1>E11.65</DG1.3.1><DG1.3.1>Z79.899</DG1.3.1 ><DG Is patient fasting? N~.~.~<DG1.3.1>Z01.812</DG1.3.1><DG1.3.1>E11.65</DG1.3.1><DG1.3.1>Z79.899</D .~.~<DG1.3.1> Z01.812</DG1.3.1><DG1.3.1>E11.65</DG1.3.1><DG1.3.1>Z79.899</DG1.3.1><DG .~.~<DG1.3.1>Z01.812</DG1.3.1><DG1.3.1>E11.65</DG1.3.1><DG1.3.1>Z79.899</DG1.3.1 ><DG Age 68 yrs [facility] ([facility]) .~.~<DG1.3.1>Z01.812</DG1.3.1><DG1.3.1>E11.65</DG1.3.1><DG1.3.1>Z79.899</DG1.3.1 ><DG Is patient fasting? N~.~.~<DG1.3.1>Z01.812</DG1.3.1><DG1.3.1>E11.65</DG1.3.1><DG1.3.1>Z79.899</D .~.~<DG1.3.1> Z01.812</DG1.3.1><DG1.3.1>E11.65</DG1.3.1><DG1.3.1>Z79.899</DG1.3.1><DG .~.~<DG1.3.1>Z01.812</DG1.3.1><DG1.3.1>E11.65</DG1.3.1><DG1.3.1>Z79.899</DG1.3.1 ><DG SGPT/Alt 18 U/L 7-[address] [facility] ([facility]) .~.~<DG1.3.1>Z01.812</DG1.3.1><DG1.3.1>E11.65</DG1.3.1><DG1.3.1>Z79.899</DG1.3.1 ><DG Is patient fasting? N~.~.~<DG1.3.1>Z01.812</DG1.3.1><DG1.3.1>E11.65</DG1.3.1><DG1.3.1>Z79.899</D .~.~<DG1.3.1> Z01.812</DG1.3.1><DG1.3.1>E11.65</DG1.3.1><DG1.3.1>Z79.899</DG1.3.1><DG .~.~<DG1.3.1>Z01.812</DG1.3.1><DG1.3.1>E11.65</DG1.3.1><DG1.3.1>Z79.899</DG1.3.1 ><DG Anion Gap 15.0 mmol/L 8.0-16.0 [facility] ([facility]) .~.~<DG1.3.1>Z01.812</DG1.3.1><DG1.3.1>E11.65</DG1.3.1><DG1.3.1>Z79.899</DG1.3.1 ><DG Is patient fasting? N~.~.~<DG1.3.1>Z01.812</DG1.3.1><DG1.3.1>E11.65</DG1.3.1><DG1.3.1>Z79.899</D .~.~<DG1.3.1> Z01.812</DG1.3.1><DG1.3.1>E11.65</DG1.3.1><DG1.3.1>Z79.899</DG1.3.1><DG .~.~<DG1.3.1>Z01.812</DG1.3.1><DG1.3.1>E11.65</DG1.3.1><DG1.3.1>Z79.899</DG1.3.1 ><DG Non-Aa GFR Laboratory test result [facility] ([facility]) .~.~<DG1.3.1>Z01.812</DG1.3.1><DG1.3.1>E11.65</DG1.3.1><DG1.3.1>Z79.899</DG1.3.1 ><DG Is patient fasting? N~.~.~<DG1.3.1>Z01.812</DG1.3.1><DG1.3.1>E11.65</DG1.3.1><DG1.3.1>Z79.899</D .~.~<DG1.3.1> Z01.812</DG1.3.1><DG1.3.1>E11.65</DG1.3.1><DG1.3.1>Z79.899</DG1.3.1><DG .~.~<DG1.3.1>Z01.812</DG1.3.1><DG1.3.1>E11.65</DG1.3.1><DG1.3.1>Z79.899</DG1.3.1 ><DG Afr Amer GFR Laboratory test result [facility] ([facility]) .~.~<DG1.3.1>Z01.812</DG1.3.1><DG1.3.1>E11.65</DG1.3.1><DG1.3.1>Z79.899</DG1.3.1 ><DG Is patient fasting? N~.~.~<DG1.3.1>Z01.812</DG1.3.1><DG1.3.1>E11.65</DG1.3.1><DG1.3.1>Z79.899</D .~.~<DG1.3.1> Z01.812</DG1.3.1><DG1.3.1>E11.65</DG1.3.1><DG1.3.1>Z79.899</DG1.3.1><DG .~.~<DG1.3.1>Z01.812</DG1.3.1><DG1.3.1>E11.65</DG1.3.1><DG1.3.1>Z79.899</DG1.3.1 ><DG ID Date Data Source [id number] 06/09/2019 02:40:00 PM EST [facility] ([facility]) Name Value Range Interpretation Code Description Data Maria M rce(s) Supporting Document(s) CBC W/Automated Diff Laboratory test result [facility]) .~.~<DG1.3.1>Z01.812</DG1.3.1><DG1.3.1>E11.65</DG1.3.1><DG1.3.1>Z79.899</DG1.3.1 ><DG Is patient fasting? N~.~.~<DG1.3.1>Z01.812</DG1.3.1><DG1.3.1>E11.65</DG1.3.1><DG1.3.1>Z79.899</D .~.~<DG1.3.1> Z01.812</DG1.3.1><DG1.3.1>E11.65</DG1.3.1><DG1.3.1>Z79.899</DG1.3.1><DG .~.~<DG1.3.1>Z01.812</DG1.3.1><DG1.3.1>E11.65</DG1.3.1><DG1.3.1>Z79.899</DG1.3.1 ><DG WBC 10.6 10^3/uL 4.2-11.0 [facility] ([facility]) .~.~<DG1.3.1>Z01.812</DG1.3.1><DG1.3.1>E11.65</DG1.3.1><DG1.3.1>Z79.899</DG1.3.1 ><DG Is patient fasting? N~.~.~<DG1.3.1>Z01.812</DG1.3.1><DG1.3.1>E11.65</DG1.3.1><DG1.3.1>Z79.899</D .~.~<DG1.3.1> Z01.812</DG1.3.1><DG1.3.1>E11.65</DG1.3.1><DG1.3.1>Z79.899</DG1.3.1><DG .~.~<DG1.3.1>Z01.812</DG1.3.1><DG1.3.1>E11.65</DG1.3.1><DG1.3.1>Z79.899</DG1.3.1 ><DG Hematocrit 43.7 % 37.0-47.0 [facility] ([facility]) .~.~<DG1.3.1>Z01.812</DG1.3.1><DG1.3.1>E11.65</DG1.3.1><DG1.3.1>Z79.899</DG1.3.1 ><DG Is patient fasting? N~.~.~<DG1.3.1>Z01.812</DG1.3.1><DG1.3.1>E11.65</DG1.3.1><DG1.3.1>Z79.899</D .~.~<DG1.3.1> Z01.812</DG1.3.1><DG1.3.1>E11.65</DG1.3.1><DG1.3.1>Z79.899</DG1.3.1><DG .~.~<DG1.3.1>Z01.812</DG1.3.1><DG1.3.1>E11.65</DG1.3.1><DG1.3.1>Z79.899</DG1.3.1 ><DG MCV 89.7 fL 81.0-101 [facility] ([facility]) .~.~<DG1.3.1>Z01.812</DG1.3.1><DG1.3.1>E11.65</DG1.3.1><DG1.3.1>Z79.899</DG1.3.1 ><DG Is patient fasting? N~.~.~<DG1.3.1>Z01.812</DG1.3.1><DG1.3.1>E11.65</DG1.3.1><DG1.3.1>Z79.899</D .~.~<DG1.3.1> Z01.812</DG1.3.1><DG1.3.1>E11.65</DG1.3.1><DG1.3.1>Z79.899</DG1.3.1><DG .~.~<DG1.3.1>Z01.812</DG1.3.1><DG1.3.1>E11.65</DG1.3.1><DG1.3.1>Z79.899</DG1.3.1 ><DG Hemoglobin 14.2 g/dL 12.0-16.0 [facility] ([facility]) .~.~<DG1.3.1>Z01.812</DG1.3.1><DG1.3.1>E11.65</DG1.3.1><DG1.3.1>Z79.899</DG1.3.1 ><DG Is patient fasting? N~.~.~<DG1.3.1>Z01.812</DG1.3.1><DG1.3.1>E11.65</DG1.3.1><DG1.3.1>Z79.899</D .~.~<DG1.3.1> Z01.812</DG1.3.1><DG1.3.1>E11.65</DG1.3.1><DG1.3.1>Z79.899</DG1.3.1><DG .~.~<DG1.3.1>Z01.812</DG1.3.1><DG1.3.1>E11.65</DG1.3.1><DG1.3.1>Z79.899</DG1.3.1 ><DG RBC 4.87 10^6/uL 4.20-5.40 [facility] ([facility]) .~.~<DG1.3.1>Z01.812</DG1.3.1><DG1.3.1>E11.65</DG1.3.1><DG1.3.1>Z79.899</DG1.3.1 ><DG Is patient fasting? N~.~.~<DG1.3.1>Z01.812</DG1.3.1><DG1.3.1>E11.65</DG1.3.1><DG1.3.1>Z79.899</D .~.~<DG1.3.1> Z01.812</DG1.3.1><DG1.3.1>E11.65</DG1.3.1><DG1.3.1>Z79.899</DG1.3.1><DG .~.~<DG1.3.1>Z01.812</DG1.3.1><DG1.3.1>E11.65</DG1.3.1><DG1.3.1>Z79.899</DG1.3.1 ><DG MCHC 32.5 g/dL 31.0-36.[address] [facility] ([facility]) .~.~<DG1.3.1>Z01.812</DG1.3.1><DG1.3.1>E11.65</DG1.3.1><DG1.3.1>Z79.899</DG1.3.1 ><DG Is patient fasting? N~.~.~<DG1.3.1>Z01.812</DG1.3.1><DG1.3.1>E11.65</DG1.3.1><DG1.3.1>Z79.899</D .~.~<DG1.3.1> Z01.812</DG1.3.1><DG1.3.1>E11.65</DG1.3.1><DG1.3.1>Z79.899</DG1.3.1><DG .~.~<DG1.3.1>Z01.812</DG1.3.1><DG1.3.1>E11.65</DG1.3.1><DG1.3.1>Z79.899</DG1.3.1 ><DG MCH 29.2 pg 27.0-34.0 [facility] ([facility]) .~.~<DG1.3.1>Z01.812</DG1.3.1><DG1.3.1>E11.65</DG1.3.1><DG1.3.1>Z79.899</DG1.3.1 ><DG Is patient fasting? N~.~.~<DG1.3.1>Z01.812</DG1.3.1><DG1.3.1>E11.65</DG1.3.1><DG1.3.1>Z79.899</D .~.~<DG1.3.1> Z01.812</DG1.3.1><DG1.3.1>E11.65</DG1.3.1><DG1.3.1>Z79.899</DG1.3.1><DG .~.~<DG1.3.1>Z01.812</DG1.3.1><DG1.3.1>E11.65</DG1.3.1><DG1.3.1>Z79.899</DG1.3.1 ><DG RDW 12.2 % 11.5-14.5 [facility] ([facility]) .~.~<DG1.3.1>Z01.812</DG1.3.1><DG1.3.1>E11.65</DG1.3.1><DG1.3.1>Z79.899</DG1.3.1 ><DG Is patient fasting? N~.~.~<DG1.3.1>Z01.812</DG1.3.1><DG1.3.1>E11.65</DG1.3.1><DG1.3.1>Z79.899</D .~.~<DG1.3.1> Z01.812</DG1.3.1><DG1.3.1>E11.65</DG1.3.1><DG1.3.1>Z79.899</DG1.3.1><DG .~.~<DG1.3.1>Z01.812</DG1.3.1><DG1.3.1>E11.65</DG1.3.1><DG1.3.1>Z79.899</DG1.3.1 ><DG Neut 66.9 % 37.0-80.0 [facility] ([facility]) .~.~<DG1.3.1>Z01.812</DG1.3.1><DG1.3.1>E11.65</DG1.3.1><DG1.3.1>Z79.899</DG1.3.1 ><DG Is patient fasting? N~.~.~<DG1.3.1>Z01.812</DG1.3.1><DG1.3.1>E11.65</DG1.3.1><DG1.3.1>Z79.899</D .~.~<DG1.3.1> Z01.812</DG1.3.1><DG1.3.1>E11.65</DG1.3.1><DG1.3.1>Z79.899</DG1.3.1><DG .~.~<DG1.3.1>Z01.812</DG1.3.1><DG1.3.1>E11.65</DG1.3.1><DG1.3.1>Z79.899</DG1.3.1 ><DG MPV 10.7 fL 7.4-10.4 Above high normal [facility] ([facility]) .~.~<DG1.3.1>Z01.812</DG1.3.1><DG1.3.1>E11.65</DG1.3.1><DG1.3.1>Z79.899</DG1.3.1 ><DG Is patient fasting? N~.~.~<DG1.3.1>Z01.812</DG1.3.1><DG1.3.1>E11.65</DG1.3.1><DG1.3.1>Z79.899</D .~.~<DG1.3.1> Z01.812</DG1.3.1><DG1.3.1>E11.65</DG1.3.1><DG1.3.1>Z79.899</DG1.3.1><DG .~.~<DG1.3.1>Z01.812</DG1.3.1><DG1.3.1>E11.65</DG1.3.1><DG1.3.1>Z79.899</DG1.3.1 ><DG Platelets 278 10^3/uL 150-450 [facility] ([facility]) .~.~<DG1.3.1>Z01.812</DG1.3.1><DG1.3.1>E11.65</DG1.3.1><DG1.3.1>Z79.899</DG1.3.1 ><DG Is patient fasting? N~.~.~<DG1.3.1>Z01.812</DG1.3.1><DG1.3.1>E11.65</DG1.3.1><DG1.3.1>Z79.899</D .~.~<DG1.3.1> Z01.812</DG1.3.1><DG1.3.1>E11.65</DG1.3.1><DG1.3.1>Z79.899</DG1.3.1><DG .~.~<DG1.3.1>Z01.812</DG1.3.1><DG1.3.1>E11.65</DG1.3.1><DG1.3.1>Z79.899</DG1.3.1 ><DG Lymph 20.9 % 25.0-40.0 Below low normal [facility] ( [facility]) .~.~<DG1.3.1>Z01.812</DG1.3.1><DG1.3.1>E11.65</DG1.3.1><DG1.3.1>Z79.899</DG1.3.1 ><DG Is patient fasting? N~.~.~<DG1.3.1>Z01.812</DG1.3.1><DG1.3.1>E11.65</DG1.3.1><DG1.3.1>Z79.899</D .~.~<DG1.3.1> Z01.812</DG1.3.1><DG1.3.1>E11.65</DG1.3.1><DG1.3.1>Z79.899</DG1.3.1><DG .~.~<DG1.3.1>Z01.812</DG1.3.1><DG1.3.1>E11.65</DG1.3.1><DG1.3.1>Z79.899</DG1.3.1 ><DG Eos 5.2 % 0.0-7.0 [facility] ([facility]) .~.~<DG1.3.1>Z01.812</DG1.3.1><DG1.3.1>E11.65</DG1.3.1><DG1.3.1>Z79.899</DG1.3.1 ><DG Is patient fasting? N~.~.~<DG1.3.1>Z01.812</DG1.3.1><DG1.3.1>E11.65</DG1.3.1><DG1.3.1>Z79.899</D .~.~<DG1.3.1> Z01.812</DG1.3.1><DG1.3.1>E11.65</DG1.3.1><DG1.3.1>Z79.899</DG1.3.1><DG .~.~<DG1.3.1>Z01.812</DG1.3.1><DG1.3.1>E11.65</DG1.3.1><DG1.3.1>Z79.899</DG1.3.1 ><DG [place] 6.2 % 3.0-8.0 [facility] ([facility]) .~.~<DG1.3.1>Z01.812</DG1.3.1><DG1.3.1>E11.65</DG1.3.1><DG1.3.1>Z79.899</DG1.3.1 ><DG Is patient fasting? N~.~.~<DG1.3.1>Z01.812</DG1.3.1><DG1.3.1>E11.65</DG1.3.1><DG1.3.1>Z79.899</D .~.~<DG1.3.1> Z01.812</DG1.3.1><DG1.3.1>E11.65</DG1.3.1><DG1.3.1>Z79.899</DG1.3.1><DG .~.~<DG1.3.1>Z01.812</DG1.3.1><DG1.3.1>E11.65</DG1.3.1><DG1.3.1>Z79.899</DG1.3.1 ><DG %Ig 0.3 % 0.0-0.0 Above high normal [facility] ([facility]) .~.~<DG1.3.1>Z01.812</DG1.3.1><DG1.3.1>E11.65</DG1.3.1><DG1.3.1>Z79.899</DG1.3.1 ><DG Is patient fasting? N~.~.~<DG1.3.1>Z01.812</DG1.3.1><DG1.3.1>E11.65</DG1.3.1><DG1.3.1>Z79.899</D .~.~<DG1.3.1> Z01.812</DG1.3.1><DG1.3.1>E11.65</DG1.3.1><DG1.3.1>Z79.899</DG1.3.1><DG .~.~<DG1.3.1>Z01.812</DG1.3.1><DG1.3.1>E11.65</DG1.3.1><DG1.3.1>Z79.899</DG1.3.1 ><DG %NRBC 0.0 % 0.0-0.0 [facility] ([facility]) .~.~<DG1.3.1>Z01.812</DG1.3.1><DG1.3.1>E11.65</DG1.3.1><DG1.3.1>Z79.899</DG1.3.1 ><DG Is patient fasting? N~.~.~<DG1.3.1>Z01.812</DG1.3.1><DG1.3.1>E11.65</DG1.3.1><DG1.3.1>Z79.899</D .~.~<DG1.3.1> Z01.812</DG1.3.1><DG1.3.1>E11.65</DG1.3.1><DG1.3.1>Z79.899</DG1.3.1><DG .~.~<DG1.3.1>Z01.812</DG1.3.1><DG1.3.1>E11.65</DG1.3.1><DG1.3.1>Z79.899</DG1.3.1 ><DG Baso 0.5 % 0.0-2.5 [facility] ([facility]) .~.~<DG1.3.1>Z01.812</DG1.3.1><DG1.3.1>E11.65</DG1.3.1><DG1.3.1>Z79.899</DG1.3.1 ><DG Is patient fasting? N~.~.~<DG1.3.1>Z01.812</DG1.3.1><DG1.3.1>E11.65</DG1.3.1><DG1.3.1>Z79.899</D .~.~<DG1.3.1> Z01.812</DG1.3.1><DG1.3.1>E11.65</DG1.3.1><DG1.3.1>Z79.899</DG1.3.1><DG .~.~<DG1.3.1>Z01.812</DG1.3.1><DG1.3.1>E11.65</DG1.3.1><DG1.3.1>Z79.899</DG1.3.1 ><DG #Lymph 2.21 10^3/uL 0.60-3.40 [facility] ([facility]) .~.~<DG1.3.1>Z01.812</DG1.3.1><DG1.3.1>E11.65</DG1.3.1><DG1.3.1>Z79.899</DG1.3.1 ><DG Is patient fasting? N~.~.~<DG1.3.1>Z01.812</DG1.3.1><DG1.3.1>E11.65</DG1.3.1><DG1.3.1>Z79.899</D .~.~<DG1.3.1> Z01.812</DG1.3.1><DG1.3.1>E11.65</DG1.3.1><DG1.3.1>Z79.899</DG1.3.1><DG .~.~<DG1.3.1>Z01.812</DG1.3.1><DG1.3.1>E11.65</DG1.3.1><DG1.3.1>Z79.899</DG1.3.1 ><DG #Neut 7.09 10^3/uL 2.00-6.90 Above high normal [facility] T ([facility]) .~.~<DG1.3.1>Z01.812</DG1.3.1><DG1.3.1>E11.65</DG1.3.1><DG1.3.1>Z79.899</DG1.3.1 ><DG Is patient fasting? N~.~.~<DG1.3.1>Z01.812</DG1.3.1><DG1.3.1>E11.65</DG1.3.1><DG1.3.1>Z79.899</D .~.~<DG1.3.1> Z01.812</DG1.3.1><DG1.3.1>E11.65</DG1.3.1><DG1.3.1>Z79.899</DG1.3.1><DG .~.~<DG1.3.1>Z01.812</DG1.3.1><DG1.3.1>E11.65</DG1.3.1><DG1.3.1>Z79.899</DG1.3.1 ><DG #[place] 0.66 10^3/uL 0.00-0.90 [facility]) .~.~<DG1.3.1>Z01.812</DG1.3.1><DG1.3.1>E11.65</DG1.3.1><DG1.3.1>Z79.899</DG1.3.1 ><DG Is patient fasting? N~.~.~<DG1.3.1>Z01.812</DG1.3.1><DG1.3.1>E11.65</DG1.3.1><DG1.3.1>Z79.899</D .~.~<DG1.3.1> Z01.812</DG1.3.1><DG1.3.1>E11.65</DG1.3.1><DG1.3.1>Z79.899</DG1.3.1><DG .~.~<DG1.3.1>Z01.812</DG1.3.1><DG1.3.1>E11.65</DG1.3.1><DG1.3.1>Z79.899</DG1.3.1 ><DG #Eos 0.55 10^3/uL 0.00-0.[address] [facility] ([facility]) .~.~<DG1.3.1>Z01.812</DG1.3.1><DG1.3.1>E11.65</DG1.3.1><DG1.3.1>Z79.899</DG1.3.1 ><DG Is patient fasting? N~.~.~<DG1.3.1>Z01.812</DG1.3.1><DG1.3.1>E11.65</DG1.3.1><DG1.3.1>Z79.899</D .~.~<DG1.3.1> Z01.812</DG1.3.1><DG1.3.1>E11.65</DG1.3.1><DG1.3.1>Z79.899</DG1.3.1><DG .~.~<DG1.3.1>Z01.812</DG1.3.1><DG1.3.1>E11.65</DG1.3.1><DG1.3.1>Z79.899</DG1.3.1 ><DG #Baso 0.05 10^3/uL 0.00-0.20 [facility] ([facility]) .~.~<DG1.3.1>Z01.812</DG1.3.1><DG1.3.1>E11.65</DG1.3.1><DG1.3.1>Z79.899</DG1.3.1 ><DG Is patient fasting? N~.~.~<DG1.3.1>Z01.812</DG1.3.1><DG1.3.1>E11.65</DG1.3.1><DG1.3.1>Z79.899</D .~.~<DG1.3.1> Z01.812</DG1.3.1><DG1.3.1>E11.65</DG1.3.1><DG1.3.1>Z79.899</DG1.3.1><DG .~.~<DG1.3.1>Z01.812</DG1.3.1><DG1.3.1>E11.65</DG1.3.1><DG1.3.1>Z79.899</DG1.3.1 ><DG #NRBC 0.00 10^3/uL 0.00-0.00 [facility]) .~.~<DG1.3.1>Z01.812</DG1.3.1><DG1.3.1>E11.65</DG1.3.1><DG1.3.1>Z79.899</DG1.3.1 ><DG Is patient fasting? N~.~.~<DG1.3.1>Z01.812</DG1.3.1><DG1.3.1>E11.65</DG1.3.1><DG1.3.1>Z79.899</D .~.~<DG1.3.1> Z01.812</DG1.3.1><DG1.3.1>E11.65</DG1.3.1><DG1.3.1>Z79.899</DG1.3.1><DG .~.~<DG1.3.1>Z01.812</DG1.3.1><DG1.3.1>E11.65</DG1.3.1><DG1.3.1>Z79.899</DG1.3.1 ><DG #Ig 0.03 10^3/uL 0.00-0.10 [facility]) .~.~<DG1.3.1>Z01.812</DG1.3.1><DG1.3.1>E11.65</DG1.3.1><DG1.3.1>Z79.899</DG1.3.1 ><DG Is patient fasting? N~.~.~<DG1.3.1>Z01.812</DG1.3.1><DG1.3.1>E11.65</DG1.3.1><DG1.3.1>Z79.899</D .~.~<DG1.3.1> Z01.812</DG1.3.1><DG1.3.1>E11.65</DG1.3.1><DG1.3.1>Z79.899</DG1.3.1><DG .~.~<DG1.3.1>Z01.812</DG1.3.1><DG1.3.1>E11.65</DG1.3.1><DG1.3.1>Z79.899</DG1.3.1 ><DG Manual Diff Laboratory test result M EDSANDR[facility] ([facility]) .~.~<DG1.3.1>Z01.812</DG1.3.1><DG1.3.1>E11.65</DG1.3.1><DG1.3.1>Z79.899</DG1.3.1 ><DG Is patient fasting? N~.~.~<DG1.3.1>Z01.812</DG1.3.1><DG1.3.1>E11.65</DG1.3.1><DG1.3.1>Z79.899</D .~.~<DG1.3.1> Z01.812</DG1.3.1><DG1.3.1>E11.65</DG1.3.1><DG1.3.1>Z79.899</DG1.3.1><DG .~.~<DG1.3.1>Z01.812</DG1.3.1><DG1.3.1>E11.65</DG1.3.1><DG1.3.1>Z79.899</DG1.3.1 ><DG RBC Morph Laboratory test result [facility] ([facility]) .~.~<DG1.3.1>Z01.812</DG1.3.1><DG1.3.1>E11.65</DG1.3.1><DG1.3.1>Z79.899</DG1.3.1 ><DG Is patient fasting? N~.~.~<DG1.3.1>Z01.812</DG1.3.1><DG1.3.1>E11.65</DG1.3.1><DG1.3.1>Z79.899</D .~.~<DG1.3.1> Z01.812</DG1.3.1><DG1.3.1>E11.65</DG1.3.1><DG1.3.1>Z79.899</DG1.3.1><DG .~.~<DG1.3.1>Z01.812</DG1.3.1><DG1.3.1>E11.65</DG1.3.1><DG1.3.1>Z79.899</DG1.3.1 ><DG ID Date Data Source [id number] 06/10/2019 05:51:00 PM [facility] Name Value Range Interpretation Code Description Data Maria M rce(s) Supporting Document(s) Hemoglobin A1c/Hemoglobin.total in Blood 11.0 % 4.4 - 6.1 H [facility] {A1]{HB] ID Date Data Source [id number] 06/10/2019 05:34:00 PM [facility] Name Value Range Interpretation Code Description Data Maria M rce(s) Supporting Document(s) CBC W/AUTOMATED DIFF [facility] COMPLETE BLOOD COUNT Leukocytes [#/volume] in Blood by Automated count 10.6 10^3/uL 4.2 - 11.0 [facility] Erythrocytes [#/volume] in Blood by Automated count 4.87 10^6/uL 4. 20 - 5.40 [facility] Hemoglobin [Mass/volume] in Blood 14.2 g/dL 12.0 - 16.0 [facility] Hematocrit [Volume Fraction] of Blood by Automated count 43.7 % 3 7.0 - 47.0 [facility] Erythrocyte mean corpuscular volume [Entitic volume] by Auto mated count 89.7 fL 81.0 - 101 [facility] Erythrocyte mean corpuscular hemoglobin [Entitic mass] by Automated count 29.2 pg 27.0 - 34.0 [facility] Erythrocyte mean corpuscular hemoglobin concentration [Mass/volume] by Automated count 32.5 g/dL 31.0 - 36.0 [facility] Erythrocyte distribution width [Ratio] by Automated count 12.2 % 11.5 - 14.5 [facility] Platelets [#/volume] in Blood by Automated count 278 10^3/uL 150 - 45 0 [facility] Platelet mean volume [Entitic volume] in Blood by Automated count 10.7 fL 7.4 - 10.4 H [facility] Neutrophils/100 leukocytes in Blood by Automated count 66.9 % 37. 0 - 80.0 [facility] Lymphocytes/100 leukocytes in Blood by Manual count 20.9 % 25.0 - 40.0 L [facility] Monocytes/100 leukocytes in Blood by Automated count 6.2 % 3.0 - 8.0 [facility] Eosinophils/100 leukocytes in Blood by Automated count 5.2 % 0.0 - 7.0 [facility] Basophils/100 leukocytes in Blood by Automated count 0.5 % 0.0 - 2.5 [facility] %IG 0.3 % 0.0 - 0.0 H [facility] %NRBC 0.0 % 0.0 - 0.0 [facility] al Neutrophils [#/volume] in Blood by Automated count 7.09 10^3/uL 2.00 - 6.90 H [facility] Lymphocytes [#/volume] in Blood by Automated count 2.21 10^3/uL 0.60 - 3.40 [facility] Monocytes [#/volume] in Blood by Automated count 0.66 10^3/uL 0.00 - 0.90 [facility] Eosinophils [#/volume] in Blood by Automated count 0.55 10^3/uL 0.00 - 0.70 [facility] Basophils [#/volume] in Blood by Automated count 0.05 10^3/uL 0.00 - 0.20 [facility] #IG 0.03 10^3/uL 0.00 - 0.10 [facility] #NRBC 0.00 10^3/uL 0.00 - 0.00 [facility] MANUAL DIFF NOT INDICATED [facility] { SICKLE CELL (NORMAL: NONE SEEN ) COMMENT: _NO_PLATELET_CLUMPING_SEEN 06/10/19.1734.[place] . . . ____ ID Date Data Source [id number] 06/10/2019 05:26:00 PM EST [facility] Name Value Range Interpretation Code Description Data Maria M rce(s) Supporting Document(s) COMPREHENSIVE METABOLIC PANEL [facility] COMPREHENSIVE METABOLIC PANEL Sodium [Moles/volume] in Serum or Plasma 140 mEq/L 134 - 153 [facility] Potassium [Moles/volume] in Serum or Plasma 4.3 mEq/L 3.6 - 5.0 [facility] Chloride [Moles/volume] in Serum or Plasma 99 mEq/L 98 - 107 [facility] Carbon dioxide, total [Moles/volume] in Serum or Plasma 26 MEQ/L 22 - 30 [facility] Glucose [Mass/volume] in Serum or Plasma 293 MG/DL 65 - 110 H [facility] BUN 16 MG/DL 7 - 21 [facility] al Creatinine [Mass/volume] in Serum or Plasma 0.8 MG/DL 0.7 - 1.5 [facility] BUN/CREAT 20 8 - 27 [facility] Protein [Mass/volume] in Serum or Plasma 7.3 G/DL 6.3 - 8.2 [facility] Albumin [Mass/volume] in Serum or Plasma 4.4 G/DL 3.9 - 5.0 [facility] Globulin [Mass/volume] in Serum by calculation 2.9 GM/DL 2.4 - 3.2 [facility] A/G RATIO 1.5 0.8 - 2.0 [facility] Calcium [Mass/volume] in Serum or Plasma 9.7 MG/DL 8.4 - 10.2 [facility] Bilirubin.total [Mass/volume] in Serum or Plasma 0.7 MG/DL 0.2 - 1.3 [facility] Alkaline phosphatase [Enzymatic activity/volume] in Serum or Plasma 52 U/L 38 - 126 [facility] Aspartate aminotransferase [Enzymatic activity/volume] in Serum or Plasma 21 U/L 5 - 40 [facility] Alanine aminotransferase [Enzymatic activity/volume] in Seru m or Plasma 18 U/L 7 - 56 [facility] Anion gap 3 in Serum or Plasma 15.0 mmol/L 8.0 - 16.0 [facility] AGE 68 yrs [facility] al NON-AA GFR >60 mL/min [facility] ital AFR AMER GFR >60 [facility] Male GFR In terprentation [...] >32 mL/min Normal ID Date Data Source [id number] 06/10/2019 05:11:00 PM EST [facility] Name Value Range Interpretation Code Description Data Maria M rce(s) Supporting Document(s) Prothrombin time (PT) 13.2 SECONDS 11.0 - 15.5 [facility] INR in Platelet poor plasma by Coagulation assay 0.99 0.93 - 1. 23 [facility] aPTT in Blood by Coagulation assay 33.3 SECONDS 24.8 - 36.7 [facility] \\BLDo\\INR INTERPRETATION\\BLDx\\ Therapeutic range for Coumadin and related oral anticoagulants. - International Normalized Ratio (INR): 2.0 - 3.0 for Venous Thrombosis, Pulmonary Embolus, Tissue heart valves, Acute CT Atrial Fibrillation, Valvular heart disease and recurrent [...] complet ed Never Smoked A Pipe [facility] ([facility]) Vital Signs ID Date Data Source UNK [...] Body temperature 96.8 [degF] 96.8 [degF] [facility] ([facility] ) Body surface area Derived from formula 1.77 m2 1.77 m2 [facility]) Body mass index (BMI) [Ratio] 34.6 kg/m2 34.6 k g/m2 [facility] ([facility]) Body height 60 [in_i] 60 [in_i] [facility] ([facility]) 5'0" Body weight 80.457 kg 80.457 kg [facility] ([facility]) Body weight 177.38 [lb_av] 177.38 [lb_av] MEDEN T ([facility]) Oxygen saturation in Arterial blood by Pulse oximetry 96 % 96 % [facility] ([facility]) Respiratory rate 18 /min 18 /min [facility] ( [facility]) Body temperature 97.0 [degF] 97.0 [degF] [facility] ([facility]) Heart rate 96 /min 96 /min [facility] ([facility]) Diastolic blood pressure 68 mm[Hg] 68 mm[Hg] [facility] Systolic blood pressure 114 mm[Hg] 114 mm[Hg] [facility] Body surface area Derived from formula 1.79 m[address] [facility] ([facility]) Body mass index (BMI) [Ratio] 35.4 kg/m2 35.4 k g/m2 [facility] ([facility]) Body height 60 [in_i] 60 [in_i] [facility] ([facility]) 5'0" Body weight 82.158 [address] [facility] ([facility]) Body weight 181.12 [lb_av] 181.12 [lb_av] [facility] T ([facility]) Oxygen saturation in Arterial blood by Pulse oximetry 98 % 98 % [facility] ([facility]) Respiratory rate 18 /min 18 /min [facility] ( [facility]) Body temperature 97.2 [degF] 97.2 [degF] [facility] ([facility]) Heart rate 92 /min 92 /min [facility] ([facility]) Diastolic blood pressure 72 mm[Hg] 72 mm[Hg] [facility] ([facility]) Systolic blood pressure 120 mm[Hg] 120 mm[Hg] [facility] Body surface area 1.79 m2 1.79 m2 [facility] ([facility]) Body surface area 1.[address] [facility] ([facility]) Body mass index (BMI) [Ratio] 38.1 kg/m2 38.1 k g/m2 [facility] ([facility]) Body height 60 [in_i] 60 [in_i] [facility] ([facility]) 5'0" Body weight 88.452 kg 88.452 kg [facility] ([facility]) Body weight 195.00 [lb_av] 195.00 [lb_av] [facility] ([facility]) Oxygen saturation in Arterial blood by Pulse oximetry 97 % 97 % [facility] ([facility]) Respiratory rate 18 /min 18 /min [facility] ( [facility]) Body temperature 98.7 [degF] 98.7 [degF] [facility] ([facility]) Heart rate 90 /min 90 /min [facility] ([facility]) Diastolic blood pressure 72 mm[Hg] 72 mm[Hg] [facility] ([facility]) Systolic blood pressure 120 mm[Hg] 120 mm[Hg] M [facility] ([facility]) Systolic blood pressure 140 mm[Hg] 140 mm[Hg] [facility] Body surface area 1.[address] [facility] ([facility]) Body mass index (BMI) [Ratio] 38.1 kg/m2 38.1 k g/m2 [facility] ([facility]) Body height 60 [in_i] 60 [in_i] [facility] ([facility]) 5'0" Body weight 88.565 kg 88.565 kg [facility] ([facility]) Body weight 195.25 [lb_av] 195.25 [lb_av] [facility] ([facility]) Oxygen saturation in Arterial blood by Pulse oximetry 98 % 98 % [facility] ([facility]) Respiratory rate 16 /min 16 /min [facility] ( [facility]) Body temperature 97.4 [degF] 97.4 [degF] [facility] ([facility]) Heart rate 86 /min 86 /min [facility] ([facility]) Diastolic blood pressure 88 mm[Hg] 88 mm[Hg] [facility] Body weight 190.00 [lb_av] 190.00 [lb_av] [facility] ([facility]) Oxygen saturation in Arterial blood by Pulse oximetry 98 % 98 % [facility] ([facility]) Respiratory rate 16 /min 16 /min [facility] ( [facility]) Body temperature 98.2 [degF] 98.2 [degF] [facility] ([facility]) Heart rate 96 /min 96 /min [facility] ([facility]) Diastolic blood pressure 74 mm[Hg] 74 mm[Hg] [facility] ([facility]) Systolic blood pressure 126 mm[Hg] 126 mm[Hg] M [facility] ([facility]) Body surface area 1.83 m2 1.83 m2 [facility] ([facility]) Body mass index (BMI) [Ratio] 37.1 kg/m2 37.1 k g/m2 [facility] ([facility]) Body height 60 [in_i] 60 [in_i] [facility] ([facility]) 5'0" Body weight 86.184 kg 86.184 kg [facility] ([facility]) Body temperature 98.2 [degF] 98.2 [degF] [facility] ([facility] ) Body surface area 1.83 m2 1.83 m2 [facility] ([facility]) Body mass index (BMI) [Ratio] 37.3 kg/m2 37.3 k g/m2 [facility] ([facility]) Body height 60 [in_i] 60 [in_i] [facility] ([facility]) 5'0" Body weight 86.638 kg 86.638 kg [facility] ([facility]) Body weight 191.00 [lb_av] 191.00 [lb_av] [facility] T ([facility]) Oxygen saturation in Arterial blood by Pulse oximetry 98 % 98 % [facility] ([facility]) Respiratory rate 18 /min 18 /min [facility] ( [facility]) Body temperature 98.1 [degF] 98.1 [degF] [facility] ([facility]) Heart rate 94 /min 94 /min [facility] ([facility]) Diastolic blood pressure 70 mm[Hg] 70 mm[Hg] [facility] ([facility]) Systolic blood pressure 128 mm[Hg] 128 mm[Hg] M [facility] ([facility])
[2020-07-01 15:27] LABS: CHOLESTEROL LEVEL 172 MG/DL (<200); CHOLESTEROL RISK RATIO 5.058 (<5); HDL CHOLESTEROL 34 MG/DL (>40); LDL CHOLESTEROL 81 MG/DL (<100); NON-HDL-C 138 MG/DL; TRIGLYCERIDES LEVEL 283 MG/DL (<150)
[2020-07-01] MEDS ORDERED: LORazepam 2 MG/ML VIAL IV ONE (15:30)
--- NOTE | 2020-07-01 15:46 | REP ---
INDICATION: L sided weakness / slurred speech COMPARISON: None. TECHNIQUE: Real-time ultrasound evaluation and duplex Doppler interrogation of the extracranial carotid vasculature is performed. FINDINGS: There is moderate plaquing and narrowing in both carotid bulbs extending into the internal and external carotid arteries. Luminal narrowing is less than 50%. There is no evidence of hemodynamically significant stenosis of either internal carotid artery. Normal flow velocities are seen. The vertebral arteries demonstrate normal direction of flow. RIGHT LEFT Peak systolic velocity ICA 74 cm/s 70 cm/s End diastolic velocity ICA 28 cm/s 18 cm/s Peak systolic velocity CCA 91 cm/s 92cm/s Peak systolic velocity ECA 104 cm/s 101 cm/s ICA/CCA ratio 0.81 0.76 IMPRESSION: Bilateral luminal narrowing of the internal carotid arteries less than 50%. No evidence of hemodynamically significant stenosis. <Electronically signed by Ricki Kirkpatrick > 07/01/20 [id number]
[2020-07-01 20:00] VITALS: BP 183/84
--- NOTE | 2020-07-01 20:13 | REPVR ---
PROCEDURE INFORMATION: Exam: MR Head Without Contrast Exam date and time: 07/01/2020 2:44 PM Age: 69 years old Clinical indication: Weakness, extremity; Left; Additional info: L sided weakness / slurred speeh TECHNIQUE: Imaging protocol: MR of the head without contrast. 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 Cerebral ventricles: Normal. No ventriculomegaly. Bones/joints: Unremarkable. Paranasal sinuses: Mucous retention cyst/polyp in the right maxillary sinus. Mastoid air cells: The effusion in the right mastoid air cells. Orbital cavity: Unremarkable. Soft tissues: Unremarkable. Other findings: No hemorrhage. 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 Electronically signed by: Sanjiv Rebolledo On 07/01/2020 20:14:04 PM
--- NOTE | 2020-07-01 20:19 | REPVR ---
PROCEDURE INFORMATION: Exam: MR Angiogram Head Without Contrast, Arteries Exam date and time: 07/01/2020 2:44 PM Age: 69 years old Clinical indication: Weakness; Additional info: L sided weakness / slurred speeh TECHNIQUE: Imaging protocol: MR angiogram head without contrast. Exam focused on the arteries. 3D rendering (Not supervised by radiologist): MIP and/or 3D reconstructed images were created by the technologist. COMPARISON: CT Head without contrast 07/01/2020 11:28 AM FINDINGS: ANTERIOR CIRCULATION: Right internal carotid artery: Intracranial segment is patent with no significant stenosis. No aneurysm. 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 Right anterior cerebral artery: No occlusion or significant stenosis. No aneurysm. Left internal carotid artery: Intracranial segment is patent with no significant stenosis. No aneurysm. Left middle cerebral artery: No occlusion or significant stenosis. No aneurysm. Left anterior cerebral artery: No occlusion or significant stenosis. No aneurysm. POSTERIOR CIRCULATION: Right vertebral artery: severe multifocal stenosis of the right vertebral artery. Left vertebral artery: No occlusion or significant stenosis. No aneurysm. Basilar artery: No occlusion or significant stenosis. No aneurysm. Right posterior cerebral artery: No occlusion or significant stenosis. No aneurysm. Left posterior cerebral artery: No occlusion or significant stenosis. No aneurysm. 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 Severe multifocal stenosis of the right vertebral artery. Electronically signed by: Sanjiv Rebolledo On 07/01/2020 20:19:34 PM
--- NOTE | 2020-07-01 20:24 | REPVR ---
PROCEDURE INFORMATION: Exam: MR Cervical Spine Without Contrast Exam date and time: 07/01/2020 7:41 PM Age: 69 years old Clinical indication: Weakness; Patient HX: PT medicated, best images possible; Additional info: L sided weakness / slurred speeh TECHNIQUE: Imaging protocol: Multiplanar magnetic resonance images of the cervical spine without contrast. COMPARISON: US Duplex,carotid (complete) 07/01/2020 3:14 PM FINDINGS: Vertebrae: Unremarkable. Spinal cord: Normal signal. No cord compression. C2-C3: Uncovertebral hypertrophy. Severe right and moderate left neural foraminal narrowing. No uncovertebral hypertrophy. Disc bulge. Severe bilateral neural foraminal narrowing. Mild spinal canal stenosis. C4-C5: Disc bulge. Uncovertebral hypertrophy. Severe bilateral neural foraminal narrowing. Moderate spinal canal stenosis. C5-C6: Uncovertebral hypertrophy. Severe bilateral neural foraminal narrowing. Moderate spinal canal stenosis. C6-C7: Uncovertebral hypertrophy. Moderate spinal canal stenosis. Moderate to severe bilateral neural foraminal narrowing. C7-T1: No significant disc disease. No significant spinal stenosis. Soft tissues: Unremarkable. Vertebral arteries: Expected flow voids in the vertebral arteries. Other findings: Suboptimal examination secondary to motion artifact. IMPRESSION: Suboptimal examination secondary to motion artifact. No obvious spinal cord abnormality. Multilevel uncovertebral hypertrophy and degenerative disc disease with neural foraminal narrowing. Severe right and moderate left at C2-C3, severe bilateral C4-C5, C5-C6, moderate to severe bilateral C6-C7. Mild spinal canal stenosis at C2-C3, moderate at C4-C5, C5-C6 and C6-C7. Electronically signed by: Sanjiv Rebolledo On 07/01/2020 20:24:28 PM
[2020-07-01] MEDS: HumaLOG INSULIN (NovoLOG) PER UNIT SC SCH ×2 (20:57→20:58)
[2020-07-01] MEDS: FAMOTIDINE 20 MG TAB PO SCH (20:58)
[2020-07-01] MEDS: SIMVASTATIN 40 MG TAB PO SCH (20:59)
[2020-07-01] MEDS: GABAPENTIN 300 MG CAP PO SCH (20:59)
--- NOTE | 2020-07-01 21:27 | ECGEPIP ---
[facility] - ED Test Date: 2020-07-01 Pat Name: CLARA MOSER Department: Room: - Gender: Female [employer] Operator: vc : 1950 Requested By: Larry Reddy Order Number: [id number] Reading MD: Tabatha Peña Measurements Intervals [place] Rate: 105 P: 39 NC: 208 QRS: 14 QRSD: 89 T: 80 QT: 343 QTc: 455 Interpretive Statements SINUS TACHYCARDIA NONSPECIFIC T-WAVE ABNORMALITY ABNORMAL RHYTHM ECG SIMILAR 06/19/19 Electronically Signed on 07-01-2020 21:27:13 EST by Tabatha Peña
[2020-07-02] VITALS (7 sets, daily range): BP systolic 125–151; BP diastolic 60–81
[2020-07-02 05:16] LABS: BASO % 0.5 % (0.0-1.0); EOS # 0.5 10^3/uL (0.0-0.5); EOS % 5.5 % (0.0-3.0); HEMATOCRIT 38.8 % (36.0-47.0); HEMOGLOBIN 12.9 g/dl (12.0-15.5); LYMPH # 2.4 10^3/uL (1.5-5.0); LYMPH % 28.3 % (24.0-44.0); MEAN CORPUSCULAR HEMOGLOBIN 29.8 pg (27.0-33.0); MEAN CORPUSCULAR HGB CONC 33.2 g/dl (32.0-36.5); MEAN CORPUSCULAR VOLUME 89.6 fl (80.0-96.0); MONO # 0.6 10^3/uL (0.0-0.8); MONO % 7.3 % (2.0-8.0); NEUTROPHILS % 58.2 % (36.0-66.0); PLATELET COUNT, AUTOMATED 287 10^3/uL (150-450); RED BLOOD COUNT 4.33 10^6/uL (4.00-5.40); WHITE BLOOD COUNT 8.6 10^3/uL (4.0-10.0)
[2020-07-02 05:53] LABS: CALCIUM LEVEL 8.4 MG/DL (8.8-10.2); CREATININE FOR GFR 1.11 MG/DL (0.55-1.30); POTASSIUM SERUM 3.5 MEQ/L (3.5-5.1)
[2020-07-02] MEDS: HumaLOG INSULIN (NovoLOG) PER UNIT SC SCH ×4 (07:30→20:32)
[2020-07-02] MEDS: FAMOTIDINE 20 MG TAB PO SCH ×2 (08:38→20:32)
[2020-07-02] MEDS: FENOFIBRATE 145 MG TAB (TRICOR) PO SCH (08:40)
[2020-07-02] MEDS ORDERED: ASPIRIN 81 MG CHEW TABLET PO SCH (09:00)
--- NOTE | 2020-07-02 10:24 | IPNPDOC ---
Text Note Date of Service The patient was seen on 07/02/20. NOTE Subjective: Patient is a 69-year-old female who presented to the emergency room with left- sided weakness and difficulty with speech for 3 days. Patient reported that on Saturday she was in her usual state of health. However, by Saturday night she began to experience some left leg weakness / difficulty with speech. Patients is familiar with her leg problems given her chronic back pain history, however, had brought her to the emergency room for evaluation of her difficulty with speech. Upon evaluation of patient in the ER, patient was evaluated for her lower back pain. Patient had a lumbar spine CT scan and intravascular ultrasound of her left lower leg which were essentially negative. She was given muscle relaxants and advised to follow-up w ith her primary care provider. On morning patient had reported left arm weakness/heaviness and persistence of her slurred speech and they had called their primary care provider, Dr. Angie Carvajal for an appointment. After discussion with their primary care provider on Saturday, they were told to go to the ER for further evaluation. Patient was then admitted to the hospital service for further evaluation and treatment. She has reported that she has stopped taking baby aspirin 2 weeks ago because she had ran out. I have called the patient's daughter, Philip ([phone]), and placed the phone on speaker phone. Patient was seen and examined at the bedside. Currently, she denies any chest pain, shortness of breath or palpitations. Is tearful after giving her information about the MRI results. Patient will be working with physical therapy and occupational therapy today. Objective: Vitals (See below) General: Lying in bed, appears comfortable, awake / alert HEENT: NC, AT CVS: +S1S2 Lungs: Fair air entry b/l, -w/r/r Abdomen: Soft, ND, NT Extremities: - Edema, - Calf tenderness Neuro: L U/LE with 3-4/5 strength, R U/LE with 5/5 strength Imaging: CT head 07/01: Vascular calcification. Otherwise negative non-contrast CT study of the brain. No acute intracranial abnormality.. CXR 07/01: NO ACUTE PULMONARY DISEASE. Vascular Carotid US 07/01: Bilateral luminal narrowing of the internal carotid arteries less than 50%. No evidence of hemodynamically significant stenosis. Cervical MRI 07/01: Suboptimal examination secondary to motion artifact. No obvious spinal cord abnormality. Multilevel uncovertebral hypertrophy and degenerative disc disease with neural foraminal narrowing. Severe right and moderate left at C2-C3, severe bilateral C4-C5, C5-C6, moderate to severe bilateral C6-C7. Mild spinal canal stenosis at C2-C3, moderate at C4-C5, C5-C6 and C6-C7. 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 Severe multifocal stenosis of the right vertebral artery. MRI 07/01: Acute infarct in the right kg measuring 1.5 x 0.9 cm. Assessment and Plan: Left sided weakness - likely 2/2 acute CVA at right kg measuring 1.5 x 0.9 cm - Resented the ER with worsening left-sided weakness associated with difficulty with speech - Had reported that she stopped ASA 81, 2 weeks prior - Physical still remains unchanged compared to yesterday - Imaging noted above / MRI confirms stroke - ECHO pending - s/p ASA 325 in ER - Will reduce ASA 325 to 81; Will add Plavix 75; c/w Atorvastatin 80 - Discussed with Neurology - c/w PT and OT; will likely require rehabilitation HTN - Will allow for permissive hypertension; SBPs of 140-180 - Stress test completed in [place]; reported negative 12 years ago - Will resume Lisinopril / HCTZ wihtin 24 hours - c/w Amlodipine DLP - c/w Simvastatin NIDDM2 - A1c 10.0% - c/w ISS Neuropathy - c/w Gabapentin DARY - Not on CPAP Chronic back pain - c/w Tylenol PRN DVT prophylaxis - s/p Heparin - c/w TEDs/Sequentials Disposition: - c/w PT and OT; will likely need rehabilitation - Discussed with daughter Philip ([phone]); address all her questions / concerns VS,Fishbone, I+O VS, Fishbone, I+O Laboratory Tests 07/01/20 12:40 07/02/20 05:05 Vital Signs Date Time Temp Pulse Resp B/P (MAP) Pulse Ox O2 Delivery O2 Flow Rate FiO2 07/02/20 08:39 92 151/81 07/02/20 08:00 97.3 18 95 Room Air I&O- Last 24 Hours up to 6 AM 07/02/20 05:59 Intake Total 0 ml Output Total 400 ml Balance -400 ml ARBOLEDA,VIJESH MD Jul 02, 2020 10:24
[2020-07-02] MEDS ORDERED: CLOPIDOGREL 75 MG TAB PO ONE (11:00)
[2020-07-02] MEDS: HEPARIN SOD (PORCINE) 5000UNITS/ML 1ML VIAL/SYRINGE SQ SCH ×2 (15:16→20:32)
[2020-07-02] MEDS: GABAPENTIN 300 MG CAP PO SCH (20:32)
[2020-07-02] MEDS: SIMVASTATIN 40 MG TAB PO SCH (20:32)
[2020-07-03] VITALS: BP 132/75
[2020-07-03 04:00] VITALS: BP_SYST 141; BP_SYST 144; BP_DIAS 90; BP_DIAS 94
[2020-07-03 05:24] LABS: BASO % 0.5 % (0.0-1.0); EOS # 0.5 10^3/uL (0.0-0.5); EOS % 6.8 % (0.0-3.0); HEMATOCRIT 39.3 % (36.0-47.0); HEMOGLOBIN 12.9 g/dl (12.0-15.5); LYMPH # 2.3 10^3/uL (1.5-5.0); LYMPH % 31.1 % (24.0-44.0); MEAN CORPUSCULAR HEMOGLOBIN 28.9 pg (27.0-33.0); MEAN CORPUSCULAR HGB CONC 32.8 g/dl (32.0-36.5); MEAN CORPUSCULAR VOLUME 88.1 fl (80.0-96.0); MONO # 0.6 10^3/uL (0.0-0.8); MONO % 7.9 % (2.0-8.0); NEUTROPHILS # 3.9 10^3/uL (1.5-8.5); NEUTROPHILS % 53.4 % (36.0-66.0); PLATELET COUNT, AUTOMATED 306 10^3/uL (150-450); RED BLOOD COUNT 4.46 10^6/uL (4.00-5.40); WHITE BLOOD COUNT 7.3 10^3/uL (4.0-10.0)
[2020-07-03 05:40] LABS: CALCIUM LEVEL 8.4 MG/DL (8.8-10.2); CREATININE FOR GFR 1.04 MG/DL (0.55-1.30); GLOMERULAR FILTRATION RATE 56.1 (>45); MAGNESIUM LEVEL 1.9 MG/DL (1.8-2.4); POTASSIUM SERUM 3.4 MEQ/L (3.5-5.1)
[2020-07-03] MEDS: HEPARIN SOD (PORCINE) 5000UNITS/ML 1ML VIAL/SYRINGE SQ SCH ×3 (06:00→21:43)
[2020-07-03] MEDS ORDERED: POTASSIUM CHLORIDE 10 MEQ SR TABLET PO ONE (07:00)
[2020-07-03 08:00] VITALS: BP 168/86
[2020-07-03] MEDS: HumaLOG INSULIN (NovoLOG) PER UNIT SC SCH ×4 (08:24→21:42)
[2020-07-03] MEDS: ASPIRIN 81 MG CHEW TABLET PO SCH (08:24)
[2020-07-03] MEDS: FAMOTIDINE 20 MG TAB PO SCH ×2 (08:25→21:43)
[2020-07-03] MEDS: FENOFIBRATE 145 MG TAB (TRICOR) PO SCH (08:25)
[2020-07-03] MEDS: CLOPIDOGREL 75 MG TAB PO SCH (08:25)
--- NOTE | 2020-07-03 10:15 | IPNPDOC ---
Text Note Date of Service The patient was seen on 07/03/20. NOTE Subjective: Patient is a 69-year-old female who presented to the emergency room with left- sided weakness and difficulty with speech for 3 days. Patient reported that on Saturday she was in her usual state of health. However, by Saturday night she began to experience some left leg weakness / difficulty with speech. Patients is familiar with her leg problems given her chronic back pain history, however, had brought her to the emergency room for evaluation of her difficulty with speech. Upon evaluation of patient in the ER, patient was evaluated for her lower back pain. Patient had a lumbar spine CT scan and intravascular ultrasound of her left lower leg which were essentially negative. She was given muscle relaxants and advised to follow-up w ith her primary care provider. On morning patient had reported left arm weakness/heaviness and persistence of her slurred speech and they had called their primary care provider, Dr. Angie Carvajal for an appointment. After discussion with their primary care provider on Saturday, they were told to go to the ER for further evaluation. Patient was then admitted to the hospital service for further evaluation and treatment. She has reported that she has stopped taking baby aspirin 2 weeks ago because she had ran out. I have called the patient's daughter, Philip ([phone]), and placed the phone on speaker phone. Patient was seen and examined at the bedside. Patient has had an uneventful evening. Has been working with physical therapy yesterday who is recommended rehabilitation. Patient has not experience any chest pain, abdominal pain or diarrhea. Objective: Vitals (See below) General: Laying in bed, appears to be comfortable, is awake and alert HEENT: NC, AT CVS: +S1S2 Lungs: Fair air entry b/l, no wheezing, rhonchi or rales Abdomen: Soft, nondistended and nontender Extremities: Lower extremities do not reveal any edema, - Calf tenderness Neuro: Left upper and lower extremity with 3-4/5 strength, right upper and lower extremity with 5/5 strength Imaging: CT head 07/01: Vascular calcification. Otherwise negative non-contrast CT study of the brain. No acute intracranial abnormality.. CXR 07/01: NO ACUTE PULMONARY DISEASE. Vascular Carotid US 07/01: Bilateral luminal narrowing of the internal carotid arteries less than 50%. No evidence of hemodynamically significant stenosis. Cervical MRI 07/01: Suboptimal examination secondary to motion artifact. No obvious spinal cord abnormality. Multilevel uncovertebral hypertrophy and degenerative disc disease with neural foraminal narrowing. Severe right and moderate left at C2-C3, severe bilateral C4-C5, C5-C6, moderate to severe bilateral C6-C7. Mild spinal canal stenosis at C2-C3, moderate at C4-C5, C5-C6 and C6-C7. 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 Severe multifocal stenosis of the right vertebral artery. MRI 07/01: Acute infarct in the right kg measuring 1.5 x 0.9 cm. Assessment and Plan: Left sided weakness - likely 2/2 acute CVA at right kg measuring 1.5 x 0.9 cm - Resented the ER with worsening left-sided weakness associated with difficulty with speech / working with PT and OT - Physical with slight improvement noted - Imaging noted above / MRI confirms stroke - ECHO complete; report pending - s/p ASA 325 in ER - c/w ASA 81, Plavix 75, Atorvastatin 80 - Consulted with Neurology; will evaluate patient todya - c/w PT and OT; will likely require rehabilitation HTN - s/p Permissive HTN - Stress test completed in [place]; reported negative 12 years ago - Will continue to hold HCTZ - Will resume Lisinopril with holding parameters - c/w Amlodipine; will adjust hold parameters DLP - c/w Simvastatin NIDDM2 - A1c 10.0% - c/w ISS Neuropathy - c/w Gabapentin DARY - Not on CPAP Chronic back pain - c/w Tylenol PRN DVT prophylaxis - s/p Heparin - c/w TEDs/Sequentials Disposition: - c/w PT and OT - Will anticipate disposition to rehabilitation this week - Philip, Daughter ([phone]) VS,Betobone, I+O VS, Fishbone, I+O Laboratory Tests 07/03/20 04:39 Vital Signs Date Time Temp Pulse Resp B/P (MAP) Pulse Ox O2 Delivery O2 Flow Rate FiO2 07/03/20 08:25 88 168/86 07/03/20 08:00 97.4 18 97 Room Air I&O- Last 24 Hours up to 6 AM 07/03/20 05:59 Intake Total 940 ml Output Total 800 ml Balance 140 ml ALISON ARBOLEDA MD Jul 03, 2020 10:15
[2020-07-03 12:00] VITALS: BP 131/69
[2020-07-03 15:52] VITALS: BP 151/79
[2020-07-03 20:00] VITALS: BP 126/72
[2020-07-03] MEDS: GABAPENTIN 300 MG CAP PO SCH (21:42)
[2020-07-03] MEDS: SIMVASTATIN 40 MG TAB PO SCH (21:42)
[2020-07-04] VITALS: BP 166/86
[2020-07-04 04:00] VITALS: BP 129/72
[2020-07-04 04:51] LABS: BASO % 0.5 % (0.0-1.0); EOS # 0.5 10^3/uL (0.0-0.5); EOS % 6.7 % (0.0-3.0); HEMOGLOBIN 12.1 g/dl (12.0-15.5); LYMPH # 2.6 10^3/uL (1.5-5.0); LYMPH % 32.6 % (24.0-44.0); MEAN CORPUSCULAR HEMOGLOBIN 28.7 pg (27.0-33.0); MEAN CORPUSCULAR HGB CONC 32.7 g/dl (32.0-36.5); MEAN CORPUSCULAR VOLUME 87.9 fl (80.0-96.0); MONO # 0.6 10^3/uL (0.0-0.8); MONO % 7.7 % (2.0-8.0); NEUTROPHILS # 4.2 10^3/uL (1.5-8.5); NEUTROPHILS % 52.2 % (36.0-66.0); PLATELET COUNT, AUTOMATED 287 10^3/uL (150-450); RED BLOOD COUNT 4.21 10^6/uL (4.00-5.40)
[2020-07-04 05:17] LABS: CALCIUM LEVEL 8.3 MG/DL (8.8-10.2); CREATININE FOR GFR 1.11 MG/DL (0.55-1.30); MAGNESIUM LEVEL 2.1 MG/DL (1.8-2.4); POTASSIUM SERUM 3.8 MEQ/L (3.5-5.1)
[2020-07-04] MEDS: HEPARIN SOD (PORCINE) 5000UNITS/ML 1ML VIAL/SYRINGE SQ SCH ×2 (06:00→15:34)
[2020-07-04 07:29] VITALS: BP 162/85
[2020-07-04 08:00] VITALS: BP 162/85
[2020-07-04] MEDS: HumaLOG INSULIN (NovoLOG) PER UNIT SC SCH ×2 (08:43→12:22)
[2020-07-04] MEDS: FAMOTIDINE 20 MG TAB PO SCH (08:43)
[2020-07-04 08:44] VITALS: BP 162/85
[2020-07-04] MEDS: FENOFIBRATE 145 MG TAB (TRICOR) PO SCH (08:44)
[2020-07-04] MEDS: CLOPIDOGREL 75 MG TAB PO SCH (08:44)
[2020-07-04] MEDS: ASPIRIN 81 MG CHEW TABLET PO SCH (08:44)
[2020-07-04] MEDS ORDERED: LISI20TA33 PO (10:29)
[2020-07-04] MEDS ORDERED: ASPI81CH8 PO (10:29)
[2020-07-04] MEDS ORDERED: INSUHUMDS SC (10:29)
[2020-07-04] MEDS ORDERED: CLOP75TA2 PO (10:29)
[2020-07-04 12:00] VITALS: BP 124/65
--- NOTE | 2020-07-04 12:09 | DS.PDOC ---
Discharge Summary General Date of Admission Jul 01, 2020 at 14:44 Date of Discharge 07/04/2020 Discharge Summary PROCEDURES PERFORMED DURING STAY: [None]. ADMITTING DIAGNOSES / DISCHARGE DIAGNOSES: Left sided weakness - likely 2/2 acute CVA at right kg measuring 1.5 x 0.9 cm HTN DLP NIDDM2 Neuropathy DARY Chronic back pain DVT prophylaxis COMPLICATIONS/CHIEF COMPLAINT: Left Sided Weakness HISTORY OF PRESENT ILLNESS: Patient is a 69-year-old female who presented to the emergency room with left-s ided weakness and difficulty with speech for 3 days. Patient reported that on Saturday she was in her usual state of health. However, by Saturday night she began to experience some left leg weakness / difficulty with speech. Patients is familiar with her leg problems given her chronic back pain history, however, had brought her to the emergency room for evaluation of her difficulty with speech. Upon evaluation of patient in the ER, patient was evaluated for her lower back pain. Patient had a lumbar spine CT scan and intravascular ultrasound of her left lower leg which were essentially negative. She was given muscle relaxants and advised to follow-up with her primary care provider. On morning patient had reported left arm weakness/heaviness and persistence of her slurred speech and they had called their primary care provider, Dr. Angie Carvajal for an appointment. After discussion with their primary care provider on Saturday, they were told to go to the ER for further evaluation. Patient was then admitted to the hospitalist service for further evaluation and treatment. She has reported that she has stopped taking baby aspirin 2 weeks ago because she had ran out. HOSPITAL COURSE: Left sided weakness - likely 2/2 acute CVA at right kg measuring 1.5 x 0.9 cm - Resented the ER with worsening left-sided weakness associated with difficulty with speech - Physical, remains relatively unchanged / patient continues to work with physical therapy - Imaging noted above / MRI confirms stroke - ECHO complete; report pending - c/w ASA 81, Plavix 75, Atorvastatin 80 - Neurology on consultation; appreciate their input - c/w PT & OT; will be transitioned to acute rehabilitation unit today HTN - BP well controlled - s/p Permissive HTN - Stress test completed in [place]; reported negative 12 years ago - Will continue to hold HCTZ - c/w Amlodipine and Lisinopril; will adjust hold parameters DLP - c/w Simvastatin NIDDM2 - A1c 10.0% - c/w ISS Neuropathy - c/w Gabapentin DARY - Not on CPAP Chronic back pain - c/w Tylenol PRN DVT prophylaxis - s/p Heparin - c/w TEDs/Sequentials DISCHARGE MEDICATIONS: Please see below. ALLERGIES: Please see below. PHYSICAL EXAMINATION ON DISCHARGE: Vitals (See below) General: Patient was seen sitting in chair, assisted there is physical therapy and occupational therapy, comfortable, AAOx3 HEENT: Normocephalic and atraumatic CVS: +S1S2 Lungs: There appears to be fair air entry bilaterally without any auscultated crackles, wheezing or rhonchi Abdomen: Soft, obese, nondistended and nontender Extremities: No edema is appreciated Neuro: Weakness at left upper and lower extremities still noted; right upper lower extremity are 5/5 strength LABORATORY DATA: Please see below. IMAGING: CT head 07/01: Vascular calcification. Otherwise negative non-contrast CT study of the brain. No acute intracranial abnormality.. CXR 07/01: NO ACUTE PULMONARY DISEASE. Vascular Carotid US 07/01: Bilateral luminal narrowing of the internal carotid arteries less than 50%. No evidence of hemodynamically significant stenosis. Cervical MRI 07/01: Suboptimal examination secondary to motion artifact. No obvious spinal cord abnormality. Multilevel uncovertebral hypertrophy and degenerative disc disease with neural foraminal narrowing. Severe right and moderate left at C2-C3, severe bilateral C4-C5, C5-C6, moderate to severe bilateral C6-C7. Mild spinal canal stenosis at C2-C3, moderate at C4-C5, C5-C6 and C6-C7. 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 Severe multifocal stenosis of the right vertebral artery. MRI 07/01: Acute infarct in the right kg measuring 1.5 x 0.9 cm. ACTIVITY: [As tolerated]. DISCHARGE PLAN: Follow-up with primary care provider and neurology within the next 7 days Remain compliant with treatment plan and medications Return to the ER if you experience any problems DISPOSITION: Acute rehabilitation unit DISCHARGE CONDITION: [Stable]. TIME SPENT ON DISCHARGE: 35 minutes. Vital Signs/I&Os Vital Signs Date Time Temp Pulse Resp B/P (MAP) Pulse Ox O2 Delivery O2 Flow Rate FiO2 07/04/20 08:44 162/85 07/04/20 08:44 95 07/04/20 07:29 97.9 20 96 Room Air I&O- Last 24 Hours up to 6 AM 07/04/20 06:00 Intake Total 1240 ml Output Total 200 ml Balance 1040 ml Laboratory Data Labs 24H Laboratory Tests 2 07/03/20 16:49: Bedside Glucose (Misc Panel) 216H 07/03/20 21:23: Bedside Glucose (Misc Panel) 274H 07/04/20 04:29: Immature Granulocyte % (Auto) 0.3, Neutrophils (%) (Auto) 52.2, Lymphocytes (%) (Auto) 32.6, Monocytes (%) (Auto) 7.7H, Eosinophils (%) (Auto) 6.7H, Basophils (%) (Auto) 0.5, Neutrophils # (Auto) 4.2, Lymphocytes # (Auto) 2.6, Monocytes # (Auto) 0.6, Eosinophils # (Auto) 0.5, Basophils # (Auto) 0.0, Nucleated Red Blood Cells % (auto) 0.0, Anion Gap 9, Glomerular Filtration Rate 52.0, Calcium Level 8.3L, Magnesium Level 2.1 CBC/BMP Laboratory Tests 07/04/20 04:29 FSBS Laboratory Tests Test 07/03/20 16:49 07/03/20 21:23 Range/Units Bedside Glucose (Misc Panel) 216 274 80-115 MG/DL Discharge Medications Scheduled Amlodipine Besylate (Amlodipine Besylate) 10 Mg Tab, 10 MG PO DAILY, (Reported) Aspirin (Children's Aspirin) 81 Mg Tab.chew, 81 MG PO DAILY Clopidogrel Bisulfate (Clopidogrel) 75 Mg Tablet, 75 MG PO DAILY Famotidine (Famotidine) 20 Mg Tablet, 20 MG PO BID, (Reported) Fenofibrate Nanocrystallized (Fenofibrate) 145 Mg Tablet, 145 MG PO DAILY, ( Reported) Gabapentin (Gabapentin) 300 Mg Capsule, 300 MG PO QHS, (Reported) Insulin Human Lispro (Humalog) 100 Unit/1 Ml Vial, 0 UNITS SC ACHS As per [facility] scale Lisinopril (Lisinopril) 20 Mg Tablet, 20 MG PO DAILY Simvastatin (Zocor) 80 Mg Tablet, 80 MG PO QHS, (Reported) Scheduled PRN Montelukast Sodium (Montelukast Sodium) 10 Mg Tablet, 10 MG PO DAILY PRN for ALLERGIES, (Reported) Allergies Coded Allergies: No Known Allergies (Unverified , 06/19/19) ALISON ARBOLEDA MD Jul 04, 2020 12:09
--- NOTE | 2020-07-04 12:56 | CR ---
CONSULTATION DATE: 07/03/2020 REASON FOR CONSULTATION: Pontine stroke. HISTORY OF PRESENT ILLNESS: The patient is a 69-year-old right-handed Citizen Of [place] speaking female who presented to [facility] Emergency Department with difficulty with speech and weakness ongoing since Saturday of last week. The patient was not a TPA candidate. Initially she was treated for back pain and left leg pain. She was sent home. She developed worsening slurred speech, worsening left-sided hemiparesis, came back to the ER and was found to have acute stroke and admitted to the hospital. During her hospital stay so far she was noted to have an acute stroke of the right kg measuring 1.5 x 0.9 cm resulting in left-sided hemiparesis mostly affecting the left arm and leg. She has MR angiogram evidence of severe right MCA M2 segmental stenosis with multifocal stenosis of the right vertebral artery. She is now currently on Aspirin 81 mg and Plavix 10 mg daily along with Atorvastatin 80 mg every night. The patient has history of hypertension and has history of non-insulin dependent type 2 diabetes mellitus, obstructive sleep apnea not on CPAP likely contributing towards her stroke risk factors. The patient has never had a stroke in the past. She denies any headache at the present time. She has abnormal sensation of the left face at times; she feels her speech is not articulating well although her language function is preserved. The patient continues to have significant left upper and lower extremity weakness. She denies any chest pain, shortness of breath, headache, and loss of vision. REVIEW OF SYSTEMS: 14-point review of systems obtained and negative except as per HPI. PAST MEDICAL HISTORY: Hypertension, hyperlipidemia, type 2 diabetes with peripheral polyneuropathy, obstructive sleep apnea not on CPAP, chronic back pain. PAST SURGICAL HISTORY: Right rotator cuff repair 2019, right foot bunionectomy, hysterectomy, section x2. FAMILY HISTORY: Noncontributory. SOCIAL HISTORY: The patient denies use of any alcohol, tobacco or illicit drugs. ALLERGIES: NO KNOWN DRUG ALLERGIES. PRESENT MEDICATIONS: 1. Amlodipine 10 mg daily. 2. Famotidine 20 mg twice a day. 3. Fenofibrate 145 mg daily. 4. Furosemide 40 mg daily. 5. Gabapentin 300 mg at nighttime. 6. Glipizide 10 mg twice a day. 7. Lisinopril/Hydrochlorothiazide 20/12.5 mg daily. 8. Metformin 1000 mg twice a day. 9. Potassium chloride 10 mEq twice a day. 10. Simvastatin 80 mg at bedtime. PHYSICAL EXAMINATION: Blood pressure 151/79, pulse rate 90, respiratory rate 18, temperature 97.7 degrees Fahrenheit, oxygenation 94% on room air. The patient is oriented to person, place and time. Very subtle dysarthria is noted. There is no aphasia. The patient is able to speak in Citizen [place] while she can repeat, language function is preserved. The patient has significant pronator drift of the left upper extremity, significant weakness in the left biceps, triceps, deltoid, hand manager testing, iliopsoas, quadriceps, and anterior tibialis. The patient has normal strength on the right arm and leg. Sensation is preserved to light touch in the face, arm and leg. There does not appear to be any gross ataxia just gait difficulty due to significant left-sided hemiparesis. 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 The patient was noted to have severe stenosis of the right vertebral artery likely contributing towards her stroke and incidental severe stenosis of right MCA artery. The patient presented to the hospital outside of the TPA window. The patient remains on Aspirin and Plavix and high dose Simvastatin which she will remain on for stroke prevention. She will require inpatient rehabilitation. Recommend completing stroke workup with echocardiogram. Continue telemetry monitoring. Recommend JIMMY stockings for DVT prevention. Recommend PT/OT evaluation. The patient can follow up in the [facility] 4-6 weeks after discharge from acute rehab.
--- NOTE | 2020-07-06 11:37 | ECHO ---
DATE OF PROCEDURE: 07/02/2020 Age: 69 Gender: Female REFERRING PHYSICIAN: Valery Adams M.D. PATIENT LOCATION: Room 3226. REASON FOR STUDY: CVA. 2D MEASUREMENTS: IVS 1.2 cm LV 4.7 cm LVPW 1.2 cm LA 3.0 cm Aorta 3.3 cm IVC 1.3 cm DOPPLER MEASUREMENT Peak velocity across the aortic valve 1.8 m/s Peak velocity across the LVOT 1.1 m/s Peak gradient across the aortic valve 13 mmHg Mean gradient across the aortic valve 7 mmHg Mitral E 0.7 Mitral A 1.3 with a ratio of 0.6 2D COMMENTS: 1. Normal left ventricle size, wall thickness, and normal global left ventricular systolic function. The estimated left ventricular systolic ejection fraction is 65% to 70%. 2. Normal left atrium. Normal right atrium and right ventricle. 3. The atrial septum appeared to be normal without evidence of defect or shunt. 4. Normal aortic root. 5. No pericardial effusion seen. 6. Mildly calcified aortic valve with normal leaflet excursion. 7. Mildly calcified mitral annulus with normal anterior mitral valve leaflet motion. Normal tricuspid valve and pulmonic valve. The proximal pulmonary artery branches also appear to be normal. 8. The inferior vena cava was normal in size, central venous pressure is most likely normal. 9. Doppler with no significant valvular abnormalities detected. IMPRESSION: 1. Normal global left ventricular systolic function with a hyperdynamic left ventricle. There are features of left ventricular diastolic dysfunction manifested by abnormal relaxation. 2. Aortic valve sclerosis with trivial aortic stenosis, but no aortic regurgitation. 3. Isolated mitral annulus calcification. No evidence of mitral regurgitation or mitral stenosis. MTDD
== END 2020-07-04 16:47 | DRG 65 ==
LOC: M ED 11:01 → EDBD 11:01 → M ED INP 14:44 → M PCU 19:58
PROVIDERS: ADMIT Internal Medicine; ATTEND Internal Medicine
DX: I63.50 Cerebral infarction due to unspecified occlusion or stenosis of unspecified cerebral artery (principal); I69.354 Hemiplegia and hemiparesis following cerebral infarction affecting left non-dominant side; E11.40 Type 2 diabetes mellitus with diabetic neuropathy, unspecified; I10 Essential (primary) hypertension; E78.5 Hyperlipidemia, unspecified; G47.33 Obstructive sleep apnea (adult) (pediatric); Z79.82 Long term (current) use of aspirin; Z79.899 Other long term (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; Z79.4 Long term (current) use of insulin; E11.51 Type 2 diabetes mellitus with diabetic peripheral angiopathy without gangrene; M54.5 Low back pain

== ENCOUNTER 2020-07-04 15:02 | Inpatient (IN) | payer MEDICARE ==
[~2020-07-04] VITALS: Ht 162.6 cm; Wt 80.5 kg
[~2020-07-04 15:02] MED LIST changes: +ASPI81CH8 PO; +CLOP75TA2 PO; +FAMO1TAB11 PO; +GABA-282 PO; +INSUHUMDS SC; +LISI20TA33 PO; +POTA20TA6 PO; +ZOCO80TA PO
--- OUTSIDE RECORDS SUMMARY | 2020-07-04 16:54 | CCD | Continuity of Care Document ---
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 Minal Alexander DPM-pc Onset: 12/01/2019 Corns and callosities Minal Alexander DPM-pc Onset: 12/01/19 20 Onychomycosis RAJNI Larsen, PNP Onset: 0 Type II diabetes mellitus uncontrolled RAJNI Larsen P [facility]ER Onset: 01/07/2020 Essential hypertension RAJNI Larsen, PNP Onset: 2019 Shoulder joint pain RAJNI Larsen, PNP Onset: 0 Disorder of bursa of shoulder region RAJNI Larsen, PNP Onset: 01/07/2020 Taking medication RAJNI Larsen PNP Onset: 0 Social History Type Date [...] day 90tabs RAJNI Larsen, PNP 09/16/19 20 Onetouch Ultra 2 w/Device Kit for 3 times a day blood sugar testing dx: e11.65 1units RAJNI Larsen, PNP 06/29/2019 Blood Glucose Test Strips please provide glucose test strips, covered by pt insurance for three times a day blood sugar testing dx: e11.65 300units E11.65 RAJNI Larsen, PNP 06/[address] ease provide lancets that will be covered by insurance for three times a day blood sugar testing dx: e11.65 300units RAJNI Larsen, PNP 06/24/19 20 Famotidine 20mg Tablets 1 by mouth twice a day 180tabs RAJNI Larsen, PNP 06/09/19 20 Methocarbamol 750mg Tablets 1 by mouth three times a day x 30 days-written by dakota robles Simvastatin 80mg Tablets 1 tab by mouth [...] times a day 270caps RAJNI Larsen, PNP Amlodipine Besylate 10mg Tablets 1 by mouth every day 90tabs RAJNI Larsen, PNP 00 Lisinopril-Hydrochlorothiazide 20-12.5mg Tablets 1 by mouth every day 90tabs RAJNI Larsen, PNP Aspirin Adult Low Strength 81mg Tablets DR 1 by mouth every day Unknown Glipizide 10mg Tablets 1 by mouth twice a day 180tabs RAJNI Larsen, PNP Metformin HCL 1000mg Tablets 1 tab by mouth twice a day 180tabs RAJNI Larsen, PNP History Medications Tradjenta 5mg Tablets take one tablet by mouth every day in the morning 90tabs E11.49 ANALI Larsen C, PNP 01/07/2020 - 01/14/2020 Immunizations Description No Information Available Vital Signs Date Vital Result Comment 07/01/2020 9:44am BP Systolic 142 mmHg BP Diastolic 78 mmHg Heart Rate 102 /min Body Temperature 96.6 F Respiratory Rate 18 /min O2 % BldC Oximetry 98 % Weight 176.00 lb Weight 79.834 kg Height 60 inches 5'0" BMI (Body Mass Index) 34.4 kg/m2 BSA (Body Surface Area) 1.77 m2 04/11/2020 1:54pm BP Systolic 114 mmHg BP Diastolic 68 mmHg Heart Rate 96 /min Body Temperature 97.0 F Respiratory Rate 18 /min O2 % BldC Oximetry 96 % Weight 177.38 lb Weight 80.457 kg Height 60 inches 5'0" BMI (Body Mass Index) 34.6 kg/m2 BSA (Body Surface Area) 1.77 m2 Results Test Acquired Date Facility Test Result H/L Range Note Laboratory test finding 01/06/2020 [facility] Magnesium Level 1.7 mg/dL Low 1.8-2.4 Thyroid Stimulating Hormone 2.370 uIU/ML Normal 0.358-3.740 Lipid Panel 01/06/2020 [facility] Triglycerides Level 272 mg/dL High <150 Cholesterol Level 134 mg/dL Normal <200 HDL Cholesterol 31 mg/dL Low >40 LDL Cholesterol 49 mg/dL Normal <100 Non-HDL-C 103 mg/dL Normal Cholesterol Risk Ratio 4.322 Normal <5 Comprehensive Metabolic Profil 01/06/2020 [facility] Glucose, Fasting 274 mg/dL High 70-100 Blood Urea Nitrogen 20 mg/dL High 7-18 Creatinine For GFR 1.00 mg/dL Normal 0.55-1.30 Glomerular Filtration Rate 58.7 Normal >45 1 Sodium Level 140 mEq/L Normal 136-145 Potassium [...] Normal 3.2-5.2 Albumin/Globulin Ratio 1.0 Low 1.2-2.2 Hemoglobin A1c 01/06/2020 [facility] Hemoglobin A1c 10.7 % Normal 2 Estimated Average Glucose 260 mg/dL High 60-110 CBC With Differential 01/06/2020 [facility] White Blood Count 10.4 10 High [...] 36.0-66.0 Lymph % 20.2 % Low 24.0-44.0 [place] % 6.0 % High 0.0-5.0 Eos % 5.9 % High 0.0-3.0 Baso % 0.5 % Normal 0.0-1.0 Immature Granulocyte % 0.3 % Normal 0-3.0 Nucleated Red Blood Cell % 0.0 % Normal 0-0 Neutrophils # 7.0 10 Normal 1.5-8.5 Lymph # 2.1 10 Normal 1.5-5.0 [place] # 0.6 10 Normal 0.0-0.8 Eos # 0.6 10 High 0.0-0.5 Baso # 0.1 10 Normal 0.0-0.2 1 Units are mL/min/1.73 m2 Chronic Kidney Disease Staging per NKF: Stage I & II GFR >=60 Normal to Mildly Decreased Stage III GFR 30-59 Moderately Decreased Stage IV GFR 15-29 Severely Decreased Stage V GFR <15 Very Little GFR Left ESRD GFR <15 on HYDROGRAPHER 2 REFERENCE RANGES: <=5.6% NORMAL 5.7-6.4% SUGGESTS IMPAIRED GLUCOSE META BOLISM/PREDIABETIC >= 6.5% ABNORMAL Procedures Description No Information Available Medical Devices Description No Information Available Encounters Description No Information Available Assessments Date Code Description Provider 07/01/2020 Z08 Encounter for follow -up examination after completed treatment for malignant neoplasm Griselda Ruelas, [facility] 07/01/2020 G81.94 Hemiplegia, unspecified affectin g left nondominant side Griselda Ruelas, [facility] 07/01/2020 M51.27 Other intervertebral disc displa cement, lumbosacral region Griseldadanitza Ruelas, [facility] 07/01/2020 E11.49 Type 2 diabetes elbert itus with other diabetic neurological complication [facility], [facility] 07/01/2020 I10 Essential (primary) hypertension [facility], [facility] 07/01/2020 E78.00 Pure hypercholesterolemia, unspe cified Griselda Ruelas, [facility] 07/01/2020 K21.9 Gastro-esophageal reflux disease without esophagitis [facility], [facility] 07/01/2020 E87.6 Hypokalemia Griseldadanitza Ruelas, [facility] 07/01/2020 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 of n ative arteries of extremities with intermittent claudication, bilateral legs Griselda Ruelas, [facility] 07/01/2020 Z79.899 Other long term care administrator (current) drug t [facility]rapy [facility]2020 Z68.34 Body mass index [BMI] 34.0-34.9, adult CAIN Schreiber 04/11/2020 E11.49 Type 2 diabetes elbert itus [...] callosities RAJNI Larsen, PNP 04/11/2020 Z79.899 Other correction (current) drug t herapy RAJNI Larsen, KARINA 04/11/2020 Z68.34 Body mass index [BMI] 34.0-34.9, adult RAJNI Larsen, PNP 01/07/2020 E11.49 Type 2 diabetes elbert itus with other diabetic neurological complication RAJNI Larsen, KARINA 01/07/2020 I10 Essential (primary) hypertension RAJNI Larsen, PNP 01/07/2020 M79.604 Pain in right leg FAM Larsen PNP Plan of Treatment Future Appointment(s):* 07/13/2020 1:00 pm - RAJNI Larsen PNP at [facility] 07/01/2020 - CAIN Schreiber* Z08 Encounter for follow-up examination after completed treatment for malignant neoplasm* Comments:* She was seen at [facility] ER on 06/30/20 for left lower extremity pain. Her US Duplex left lower extremity veins done for left lower leg pain showed no evidence of DVT. * G81.94 Hemiplegia, unspecified affecting left nondominant side* Comments:* On today's visit encounter, she complained of having slurred speech, headache, f acial droop, and left-sided weakness. The onset of symptoms was 36 hours ago.911 was called for the patient to be transported to the hospital for prompt treatment of her symptoms.Treatment plan was discussed with the patient and her daughter to which they verbalized intent to the plan of care. * M51.27 Other intervertebral disc displacement, lumbosacral region* Comments:* Her US Duplex left lower extremity veins done for left lower leg pain showed no evidence of DVT.Her CT spine lumbar w/o contrast for low back pain radiating to LLE done at [facility] on 06/30/20 showed advanced degenerative spondylosis with large posterior disc protrusions causing severe spinal stenosis at L3-4 and L4-5, multilevel neural foraminal stenosis. No fracture or malalignment.To follow up with Pain management to evaluate and treat accordingly. * E11.49 Type 2 diabetes mellitus with other diabetic neurological complication * Comments:* Her fasting glucose is high at 261.The patient was advised to continue with her current medication regimen. She will benefit from maintaining a diabetic diet and a regular exercise regimen. We will continue to monitor. * I10 Essential (primary) hypertension* Comments:* Today, her BP is at 142/78. She was advised to continue with her current line of therapies. She will benefit from maintaining a low-sodium diet. We will continue to monitor. * E78.00 Pure hypercholesterolemia, unspecified* Comments:* She will continue with her current regimen. She was encouraged to maintain a low cholesterol diet and a regular exercise regimen. We will continue to monitor. * Follow up:* FU in 3 months, fasting labs a week prior. * K21.9 Gastro-esophageal reflux disease without esophagitis* Comments:* She was advised to continue with her current medication. Avoid spicy food and c ontrol diet as advised. * E87.6 Hypokalemia* Comments:* To continue current daily supplement.We will continue to monitor through periodic blood work. * 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 of agda[place] arteries of extremities with intermittent claudication, bilateral legs* Comments:* Currently stable.To continue current medication and plan of care.We will continue to monitor. * Z79.899 Other long term care administrator (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* Comments:* Patient to continue to follow the current plan of care and to look for any new or worsening symptoms. We will continue to monitor through periodic blood work. * Follow up:* FU in 3 months, fasting labs a week prior. * Z68.34 Body mass index [BMI] 34.0-34.9, adult* Comments:* Her BMI is at 34.4. She was strongly encouraged to lose weight with low-calorie diet and exercises. We will continue to monitor her weight and BMI periodically. Functional Status Description No Information Available Mental Status Description No Information Available Referrals Refer to Reason for Referral Status Appt Date [facility] Dr. Lundberg, please see this 69 yo female who has uncontrolled Type 2 DM. She has bilateral leg pain with ambulation. Pedal pulse is readily palpable on right but not on Left. Left foot and toes are notably cooler than right. Please evaluate for bilateral lower extremity claudication. Sent 04/27/2020 [address] [facility] [address] [place] [address] [phone] Riley Spaulding Please see this 69 yo female whom you have seen in the past for diabetic foot care. She has now developed a callus plantar right foot beneath 1st metatarsal. Starting callus on left lateral 1st metatarsal and circulation notably diminished left foot. I'm also referring to vascular for eval. Closed [address] [place] [address] [phone]
[2020-07-04 16:55] VITALS: BP 162/86
--- OUTSIDE RECORDS SUMMARY | 2020-07-04 16:56 | CCD ---
Author Author [facility] Organization [facility] Address Unknown Phone Unavailable Care Team Providers Care Electric Stove Mechanic Name Role Phone Ynes LAZO DPM Unavailable [...] Salazar MD Unavailable Unavailable Nevills, C Griselda NUMERICAL CONTROL PROGRAMMER Unavailable Unavailable Nevills, C Griselda NUMERICAL CONTROL PROGRAMMER Unavailable Unavailable Nevills, C Griselda NUMERICAL CONTROL PROGRAMMER Unavailable Unavailable Nevills, C Griselda NUMERICAL CONTROL PROGRAMMER Unavailable Unavailable Nevills, C Griselda NUMERICAL CONTROL PROGRAMMER Unavailable Unavailable Nevills, C Griselda NUMERICAL CONTROL PROGRAMMER Unavailable Unavailable Nevills, C Griselda NUMERICAL CONTROL PROGRAMMER Unavailable Unavailable Nevills, C Griselda NUMERICAL CONTROL PROGRAMMER Unavailable Unavailable Nevills, C Griselda NUMERICAL CONTROL PROGRAMMER Unavailable Unavailable Nevills, C Griselda NUMERICAL CONTROL PROGRAMMER Unavailable Unavailable Nevills, C Griselda NUMERICAL CONTROL PROGRAMMER Unavailable Unavailable Nevills, C Griselda NUMERICAL CONTROL PROGRAMMER Unavailable Unavailable Nevills, C Griselda NUMERICAL CONTROL PROGRAMMER Unavailable Unavailable Nevills, C Griselda NUMERICAL CONTROL PROGRAMMER Unavailable Unavailable Nevills, C Griselda NUMERICAL CONTROL PROGRAMMER Unavailable Unavailable Nevills, C Griselda NUMERICAL CONTROL PROGRAMMER Unavailable Unavailable Nevills, C Griselda NUMERICAL CONTROL PROGRAMMER Unavailable Unavailable Wei, Johana Angie ANP-BC Unavailable [...] Wei, Johana Angie ANP-BC Unavailable Unavailable Wei, Joahna Angie ANP-BC Unavailable Unavailable Wei, Johana Angie [...] Unavailable Wei, Johana Angie ANP-BC Unavailable Unavailable Wie, Johana Angie ANP-BC Unavailable Unavailable Wei, Johana [...] Wei, Johana Angie ANP-BC Unavailable Unavailable Wei, Ojhana Angie ANP-BC Unavailable Unavailable Wei, Johana Angie [...] is protected by Article 27-F of the [facility] Public Health law. If you continue you may have access to information: Regarding HIV / AIDS; Provided by facilities licensed or operated by the [facility] Office of Mental Health; or Provided by the [facility] Office for People With Developmental Disabilities. If such information is present, then the following [facility] mandated warning applies: This information has been [...] law may result in a fine or fdc sentence or both. A general authorization for [...] 09:48:00 AM EST - 07/01/2020 09:48:00 AM [facility] Office Visit Attender: RENETTA LAZO [facility] Office 05/20 02:00:00 PM EST [facility] ([facility] Outpatient Attender: Angie URBAN 03/21 01:50:00 PM EST - 04/11/2020 01:50:00 PM [facility] Outpatient Attender: Angie URBAN [facility] 03/21 12:40:00 PM EST [facility] ([facility] Outpatient Attender: RENETTA CRUZ MD Physical Therapy 09:00:00 AM EDT [facility] ([facility]) Outpatient Attender: Angie URBAN 12/19 01:48:00 PM EDT - 01/07/2020 01:48:00 PM EDT [facility] Outpatient Attender: RENETTA CRUZ MD Physical Therapy 03:30:00 PM EDT [facility] ([facility]) Outpatient Attender: KAREL LOPEZ DPM PC 12/01/2019 03:48:00 PM EDT - 12/01/2019 03:48:00 PM EDT [facility] Outpatient Attender: Angie URBAN 09/18 01:32:00 PM EDT - 10/07/2019 01:32:00 PM EDT [facility] Outpatient Attender: RENETTA CRUZ MD Physical Therapy 02:30:00 PM EDT [facility] ([facility]) Outpatient Attender: Angie URBAN 08/19 01:29:00 PM EDT - 09/16/2019 01:29:00 PM EDT [facility] Outpatient Attender: Wei Salazar MD FP 2019 08:01:07 PM EDT [facility] Outpatient Referrer: RENETTA CRUZ MD 08/12/2019 08:27:0 [...] AM EST - 07/02/2019 10:56:00 AM EST [facility] Outpatient Attender: Angie URBAN Family Practice 06/20 09:40:00 AM EST [facility] ([facility]) Outpatient Referrer: Lola MUNOZ 06/30/2019 01:30:00 PM EST [facility] Outpatient Attender: Angie URBAN 05/21 10:54:00 AM EST - 06/17/2019 10:54:00 AM EST [facility] Outpatient Attender: Angie URBAN 05/21 01:50:00 PM EST - 06/09/2019 01:50:00 PM EST [facility] Outpatient Attender: Angie URBAN Family Practice 05/21 12:40:00 PM EST [facility] ([facility]) Outpatient Attender: Wei Salazar MD 05/29/2019 08:01:01 PM EST [facility] Medications Medication Brand Name Start Date Product Form Dose Route Admi nistrative Instructions Pharmacy Instructions Status Indications Reaction Description Data Source(s) pioglitazone 30 MG Oral Tablet Pioglitazone HCL 01/14/2020 12:00:00 A M EDT ORAL active [facility] ([facility]) Potassium Chloride 20 MEQ Extended Release Oral Tablet Potas sium Chloride ER 01/13/2020 12:00:00 AM EDT ORAL active [facility] ([facility]) Fenofibrate 145 MG Oral Tablet Fenofibrate 01/07/2020 12:00:00 AM EDT ORAL active [facility] ([facility]) Linagliptin 5 MG Oral Tablet [Tradjenta] Tradjenta 01/07/2020 12 :00:00 AM EDT ORAL completed [facility] ([facility]) Clotrimazole 10 MG/ML Topical Cream Clotrimazole Anti-Fungal 10/07/2019 12:00:00 AM EDT active [facility] Furosemide 40 MG Oral Tablet Furosemide 09/16/2019 12:00:00 AM EDT ORAL active [facility] ([facility]) Ibuprofen 800 MG Oral Tablet Ibuprofen 07/28/2019 12:00:00 AM EDT ORAL active [facility] ([facility]) Onetouch Ultra 2 06/29/2019 12:00:00 AM EST a ctive [facility] ([facility]) Blood Glucose Test 06/24/2019 12:00:00 AM EST active [facility] ([facility]) Lancets 06/24/2019 12:00:00 AM EST active [facility] ([facility]) Reanna Montgomery 06/16/2019 12:00:00 AM EST completed [facility] ([facility]) 3 ML Insulin Glargine 100 UNT/ML Pen Injector [Lantus] Lantu s Solostar 06/16/2019 12:00:00 AM EST completed [facility] ([facility]) Morphine Sulfate 15 MG Extended Release Oral Tablet Morphine Sulfate ER 06/15/2019 12:00:00 AM EST ORAL active [facility] ([facility]) Oxycodone Hydrochloride 15 MG Oral Tablet Oxycodone HCL 06/15/2019 12:00:00 AM EST ORAL active [facility] ( [facility]) Ibuprofen 600 MG Oral Tablet Ibuprofen 06/15/2019 12:00:00 AM EST ORAL active [facility] ([facility] sitagliptin 100 MG Oral Tablet [Januvia] Januvia 06/09/2019 12:00: 00 AM EST ORAL active [facility] ([facility]) Famotidine 20 MG Oral Tablet Famotidine 06/09/2019 12:00:00 AM EST ORAL active [facility] ([facility]) Insurance Providers Payer name Policy type / Coverage type Policy ID Covered republican ID Covered republican's relationship to martinez Policy Martinez Plan Information WELLCARE [id number] SP [id number] WELLCARE [id number] SP [id number] [place] [id number] MEDICARE COMPLETE [id number] SP [id number] WELLCARE O [id number] S [id number] MEDICARE COMPLETE-UHC O [id number] S [id number] [place] [id number] 18 [id number] [facility]LY [facility] [place]ARE COM[place] [id number] 18 [id number] [facility] Secure Horizons P [id number] S [id number] Medicare Wrap S [id number] S [id number] UNITED HEALTHCARE O [id number] S [id number] MEDICARE C [id number] S [id number] A MEDICARE COMPLETE [id number] SP [id number] MEDICARE COMPLETE-UHC O [id number] S [id number] [employer] [place] [id number] 18 [id number] [facility] (Medicare) Commercial [id number] Self [id number] MEDICARE COMPLETE [id number] SP [id number] MEDICARE COMPLETE [id number] SP [id number] SELF PAY UNAVAILABLE SP UNAVAILA BLE [employer] Commercial [id number] Self [id number] United[employer]care Secure Horizons P [id number] S [id number] MEDICARE COMPLETE [id number] SP [id number] MEDICARE COMPLETE-[facility] O [id number] S [id number] [employer] (Medicare) Commercial Self Medicare S [id number] S [id number] A [employer] HEALTHCARE O [id number] S [id number] Unitedhealthcare Secure Horizons P [id number] S [id number] [facility] Horizons S [id number] S [id number] Self Pay S [id number] S [id number] Medicare O UNAVAILABLE O UNAVAILA BLE Sliding Fee Scale O [id number] S [id number] MEDICARE [id number] SP [id number] A Problems, Conditions, and Diagnoses Code Display Name Description Problem Type Effective Dates Data Source(s) 720412339 Taking medication Taking medication Problem 01/06 12:00:00 AM EDT [facility] ([facility]) [id number] Disorder of bursa of shoulder region Dis order of bursa of shoulder region Problem 01/07/2020 12:00:00 AM EDT [facility] ([facility]) [id number] Shoulder joint pain Shoulder joint pain Problem 0 01/07/2020 12:00:00 AM EDT [facility] ([facility]) [id number] Essential hypertension Essential hypertension Problem 01/07/2020 12:00:00 AM EDT [facility] ([facility]) [id number] Type II diabetes mellitus uncontrolled T ype II diabetes mellitus uncontrolled Problem 01/07/2020 12:00:00 AM EDT [facility] ([facility]) [id number] Onychomycosis Onychomycosis Problem 01/07/2020 12:00:00 AM EDT [facility] ([facility]) Corns and callosities Corns and callosities Problem 12/01/2019 12:00:00 AM EDT [facility] ([facility]) 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 Problem 12/01/2019 12:00:00 AM EDT [facility] ([facility]) [id number] Pain in limb Pain in limb Problem 12/01/2019 12:00:00 A M EDT [facility] ([facility]) 53756901 Dystrophia unguium Dystrophia unguium Problem 12:00:00 AM EDT [facility] ([facility]) [id number] Ingrowing nail Ingrowing nail Problem 12/01/2019 12:00: 00 AM EDT [facility] ([facility]) [id number] Pure hypercholesterolemia Pure hypercholesterolemia Pr oblem 07/30/2019 12:00:00 AM EDT [facility] ([facility] L600 Ingrowing nail Ingrowing nail Diagnosis 12/01/2019 03:48: 00 PM EDT [facility] [id number] Pain in left foot Pain in left foot Diagnosis 12/01/2019 03:48:00 PM EDT [facility] L84 Corns and callosities Corns and callosities Diagnosis 12/01/2019 03:48:00 PM EDT [facility] L603 Nail dystrophy Nail dystrophy Diagnosis 12/01/2019 03:48: 00 PM EDT [facility] E1149 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 Diagnosis 12/01/2019 03:48:00 PM EDT [facility] [id number] Pain in right shoulder Pain in right shoulder Diagnosi s 09/16/2019 01:29:00 PM EDT [facility] I10 Essential (primary) hypertension Essential (primary) h ypertension Diagnosis 09/16/2019 01:29:00 PM EDT [facility] E1165 Type 2 diabetes mellitus with hyperglyce jeanine Type 2 diabetes mellitus with hyperglycemia Diagnosis 09/16/2019 01:29:00 PM EDT [facility] R99 Ill-defined and unknown cause of mortali ty Ill-defined and unknown cause of mortality Diagnosis 06/17/2019 10:54:00 AM [facility] [id number] 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 terminal operator (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 Diagnosis 06/09/2019 01:50:00 PM [facility] [id number] Encounter for other preprocedural examin ation Encounter for other preprocedural examination Diagnosis 06/09/2019 01:50:00 PM EST [facility] [id number] Unspecified rotator cuff tea r or rupture of right shoulder, not specified as traumatic Unspecified rotator cuff tear or rupture of right shoulder, not specified as traumatic Diagnosis 06/09/2019 01:50:00 PM EST [facility] Surgeries/Procedures Procedure Description Date Indications Data Source(s) PARING/CUTTING BENIGN HYPERKERATOTIC LESION 1 06/02/19 12:00:00 AM EST [facility] ([facility] DEBRIDEMENT NAIL ANY METHOD /> 06/02/2020 12:00:00 AM EST [facility] ([facility] RADEX SHOULDER COMPLETE MINIMUM 2 VIEWS 05/23/2020 12: 00:00 AM EST [facility] ([facility]) THERAPEUTIC PX 1/> AREAS EACH 15 MIN EXERCISES 12:00:00 AM EDT [facility] ([facility] THERAPEUTIC PX 1/> AREAS EACH 15 MIN EXERCISES 12:00:00 AM EDT [facility] ([facility] THERAPEUTIC PX 1/> AREAS EACH 15 MIN EXERCISES 12:00:00 AM EDT [facility] ([facility]) THERAPEUTIC PX 1/> AREAS EACH 15 MIN EXERCISES 12:00:00 AM EDT [facility] ([facility]) THERAPEUTIC PX 1/> AREAS EACH 15 MIN EXERCISES 12:00:00 AM EDT [facility] ([facility] THERAPEUTIC PX 1/> AREAS EACH 15 MIN EXERCISES 12:00:00 AM EDT [facility] ([facility] THERAPEUTIC PX 1/> AREAS EACH 15 MIN EXERCISES 12:00:00 AM EDT [facility] ([facility]) THERAPEUTIC PX 1/> AREAS EACH 15 MIN EXERCISES 12:00:00 AM EDT [facility] ([facility]) Pare Hyperkeratotic Lesion, 2-4 12/01/2019 12:00:00 AM EDT [facility] ([facility]) THERAPEUTIC PX 1/> AREAS EACH 15 MIN EXERCISES 12:00:00 AM EDT [facility] ([facility]) THERAPEUTIC PX 1/> AREAS EACH 15 MIN EXERCISES 12:00:00 AM EDT [facility] ([facility]) THERAPEUTIC PX 1/> AREAS EACH 15 MIN EXERCISES 12:00:00 AM EDT [facility] ([facility]) THERAPEUTIC PX 1/> AREAS EACH 15 MIN EXERCISES 12:00:00 AM EDT [facility] ([facility]) THERAPEUTIC PX 1/> AREAS EACH 15 MIN EXERCISES 12:00:00 AM EDT [facility] ([facility]) THERAPEUTIC PX 1/> AREAS EACH 15 MIN EXERCISES 12:00:00 AM EDT [facility] ([facility]) THERAPEUTIC PX 1/> AREAS EACH 15 MIN EXERCISES 12:00:00 AM EDT [facility] ([facility]) THERAPEUTIC PX 1/> AREAS EACH 15 MIN EXERCISES 12:00:00 AM EDT [facility] ([facility]) THERAPEUTIC PX 1/> AREAS EACH 15 MIN EXERCISES 12:00:00 AM EDT [facility] ([facility]) THERAPEUTIC PX 1/> AREAS EACH 15 MIN EXERCISES 12:00:00 AM EDT [facility] ([facility]) MANUAL THERAPY TQS 1/> REGIONS EACH 15 MINUTES 12:00:00 AM EDT [facility] ([facility]) THERAPEUTIC PX 1/> AREAS EACH 15 MIN EXERCISES 12:00:00 AM EDT [facility] ([facility]) THERAPEUTIC PX 1/> AREAS EACH 15 MIN EXERCISES 12:00:00 AM EDT [facility] ([facility]) MANUAL THERAPY TQS 1/> REGIONS EACH 15 MINUTES 12:00:00 AM EDT [facility] ([facility]) THERAPEUTIC PX 1/> AREAS EACH 15 MIN EXERCISES 12:00:00 AM EDT [facility] ([facility]) MANUAL THERAPY TQS 1/> REGIONS EACH 15 MINUTES 12:00:00 AM EDT [facility] ([facility] ) [place] 10/13/2019 12:00:00 AM EDT [facility] ([facility] ) THERAPEUTIC PX 1/> AREAS EACH 15 MIN EXERCISES 12:00:00 AM EDT [facility] ([facility] [place] 10/08/2019 12:00:00 AM EDT [facility] ([facility] ) THERAPEUTIC PX 1/> AREAS EACH 15 MIN EXERCISES 12:00:00 AM EDT [facility] ([facility] Admin Patient Focused Health Risk Assessment Instrument 10/07/2019 12:00:00 AM EDT [facility] ([facility]) THERAPEUTIC PX 1/> AREAS EACH 15 MIN EXERCISES 12:00:00 AM EDT [facility] ([facility] THERAPEUTIC PX 1/> AREAS EACH 15 MIN EXERCISES 12:00:00 AM EDT [facility] ([facility] ) THERAPEUTIC PX 1/> AREAS EACH 15 MIN EXERCISES 12:00:00 AM EDT [facility] ([facility] ) THERAPEUTIC PX 1/> AREAS EACH 15 MIN EXERCISES 12:00:00 AM EDT [facility] ([facility] ) THERAPEUTIC PX 1/> AREAS EACH 15 MIN EXERCISES 12:00:00 AM EDT [facility] ([facility] ) THERAPEUTIC PX 1/> AREAS EACH 15 MIN EXERCISES 12:00:00 AM EDT [facility] ([facility] ) THERAPEUTIC PX 1/> AREAS EACH 15 MIN EXERCISES 12:00:00 AM EDT [facility] ([facility] ) THERAPEUTIC PX 1/> AREAS EACH 15 MIN EXERCISES 12:00:00 AM EDT [facility] ([facility] ) THERAPEUTIC PX 1/> AREAS EACH 15 MIN EXERCISES 12:00:00 AM EDT [facility] ([facility] ) THERAPEUTIC PX 1/> AREAS EACH 15 MIN EXERCISES 12:00:00 AM EDT [facility] ([facility] ) THERAPEUTIC PX 1/> AREAS EACH 15 MIN EXERCISES 12:00:00 AM EDT [facility] ([facility] ) THERAPEUTIC PX 1/> AREAS EACH 15 MIN EXERCISES 12:00:00 AM EDT [facility] ([facility]) THERAPEUTIC PX 1/> AREAS EACH 15 MIN EXERCISES 12:00:00 AM EDT [facility] ([facility]) THERAPEUTIC PX 1/> AREAS EACH 15 MIN EXERCISES 12:00:00 AM EDT [facility] ([facility]) THERAPEUTIC PX 1/> AREAS EACH 15 MIN EXERCISES 12:00:00 AM EDT [facility] ([facility]) THERAPEUTIC PX 1/> AREAS EACH 15 MIN EXERCISES 12:00:00 AM EDT [facility] ([facility]) THERAPEUTIC PX 1/> AREAS EACH 15 MIN EXERCISES 12:00:00 AM EDT [facility] ([facility] ) Mass[place], Each 15 Minutes 08/11/2019 12:00:00 AM EDT [facility] ([facility] ) THERAPEUTIC PX 1/> AREAS EACH 15 MIN EXERCISES 12:00:00 AM EDT [facility] ([facility] ) Massage, Each 15 Minutes 08/06/2019 12:00:00 AM EDT [facility] ([facility] ) THERAPEUTIC PX 1/> AREAS EACH 15 MIN EXERCISES 12:00:00 AM EDT [facility] ([facility] ) Massage, Each 15 Minutes 08/04/2019 12:00:00 AM EDT [facility] ([facility]) THERAPEUTIC PX 1/> AREAS EACH 15 MIN EXERCISES 12:00:00 AM EDT [facility] ([facility] ) Massage, Each 15 Minutes 07/30/2019 12:00:00 AM EDT [facility] ([facility]) THERAPEUTIC PX 1/> AREAS EACH 15 MIN EXERCISES 12:00:00 AM EST [facility] ([facility] ) Massage, Each 15 Minutes 07/23/2019 12:00:00 AM EST [facility] ([facility] ) THERAPEUTIC PX 1/> AREAS EACH 15 MIN EXERCISES 12:00:00 AM EST [facility] ([facility] ) THERAPEUTIC PX 1/> AREAS EACH 15 MIN EXERCISES 020 12:00:00 AM EST [facility] ([facility]) Massage, Each 15 Minutes 07/16/2019 12:00:00 AM EST [facility] ([facility]) Physical Therapy Eval - Low Complexity 07/14/2019 12:0 0:00 AM EST [facility] ([facility]) TENODESIS LONG TENDON BICEPS 06/19/2019 12:00:00 AM ES T [facility] ([facility]) TENODESIS LONG TENDON BICEPS 06/19/2019 12:00:00 AM ES T [facility] ([facility]) Arthroscopy Shoulder Remove Loose/Foreign Body Dist Clavicul ectom 06/19/2019 12:00:00 AM EST [facility] ([facility]) Arthroscopy Shoulder Removal Loose/Foreign Body Dist Clavicu lecto 06/19/2019 12:00:00 AM EST [facility] ([facility]) SHOULDER SCOPE BONE SHAVING 06/19/2019 12:00:00 AM EST [facility] ([facility]) SHOULDER SCOPE BONE SHAVING 06/19/2019 12:00:00 AM EST [facility] ([facility]) Arthroscopy Shoulder Surgical With Rotator Cuff Repair 06/19/2019 12:00:00 AM EST [facility] ([facility]) Arthroscopy Shoulder Surgical W/Rotator Cuff Repair 06/19/2019 12:00:00 AM EST [facility] ([facility]) Results ID Date Data Source [id number] 07/01/2020 12:40:00 PM EST [facility] Name Value Range Interpretation Code Description Data Maria M rce(s) Supporting Document(s) SARS coronavirus 2 RNA [Presence] in Res piratory specimen by THALIA with probe detection NEGATIVE [facility] This lab was ordered by [facility] a nd reported by [facility]. ID Date Data Source [id number] 01/06/2020 07:58:00 AM EDT [facility] ([facility]) Name Value Range Interpretation Code Description Data Maria M rce(s) Supporting Document(s) Red Blood Count 4.61 10 4.00-5.40 Normal (applies to non-numeric results) [facility] ([facility]) White Blood Count 10.4 10 4.0-10.0 Above high normal [facility] ([facility]) Hematocrit 39.2 % 36.0-47.0 Normal (applies to non-numeric resul ts) [facility] ([facility]) Mean Corpuscular Volume 85.0 fl 80.0-96.0 Normal ( applies to non-numeric results) [facility] ([facility]) Hemoglobin 13.4 g/dL 12.0-15.5 Normal (applies to non-numeric resul ts) [facility] ([facility]) Red Cell Distribution Width 12.8 % 11.5-14.5 Norm al (applies to non-numeric results) [facility] ([facility]) Mean Corpuscular HGB Conc 34.2 g/dL 32.0-36.5 Normal (applies to non-numeric results) [facility] ([facility]) Mean Corpuscular Hemoglobin 29.1 pg 27.0-33.0 Norm al (applies to non-numeric results) [facility] ([facility]) Platelet Count, Automated 290 10 150-450 Normal (applies to non-numeric results) [facility] ([facility]) Neutrophils % 67.1 % 36.0-66.0 Above high normal MEDE NT ([facility]) Lymph % 20.2 % 24.0-44.0 Below low normal [facility] ( [facility]) Eos % 5.9 % 0.0-3.0 Above high normal [facility] ([facility]) [place] % 6.0 % 0.0-5.0 Above high normal [facility] ([facility]) Baso % 0.5 % 0.0-1.0 Normal (applies to non-numeric resul ts) [facility] ([facility]) Neutrophils # 7.0 10 1.5-8.5 Normal (applies to non-numeric re sults) [facility] ([facility]) Immature Granulocyte % 0.3 % 0-3.0 Normal (applies to non-n umeric results) [facility] ([facility]) Nucleated Red Blood Cell % 0.0 % 0-0 Normal (applies to n on-numeric results) [facility] ([facility]) Eos # 0.6 10 0.0-0.5 Above high normal [facility] ([facility]) [place] # 0.6 10 0.0-0.8 Normal (applies to non-numeric resul ts) [facility] ([facility]) Lymph # 2.1 10 1.5-5.0 Normal (applies to non-numeric resul ts) [facility] ([facility]) Baso # 0.1 10 0.0-0.2 Normal (applies to non-numeric resul ts) [facility] ([facility]) ID Date Data Source [id number] 01/06/2020 07:58:00 AM EDT [facility] ([facility]) Name Value Range Interpretation Code Description Data Maria M rce(s) Supporting Document(s) Hemoglobin A1c 10.7 % Normal (applies to non-numeric r esults) [facility] ([facility]) <content>REFERENCE RANGES:</content><br/ ><content></content>
<content><=5.6% NORMAL</content>
<content>5.7-6.4% SUGGESTS IMPAIRED GLUCOSE METABOLISM/PREDIABETIC</content>
<content>>= 6.5% ABNORMAL</content>
<content></content> Estimated Average Glucose 260 mg/dL 60-110 Above high normal [facility] ([facility]) ID Date Data Source [id number] 01/06/2020 07:58:00 AM EDT [facility] Name Value Range Interpretation Code Description Data Maria M rce(s) Supporting Document(s) Glucose, Fasting 274 mg/dL 70-100 Above high normal M [facility]ENT ([facility]) Glomerular Filtration Rate 58.7 Normal (applies to n on-numeric results) [facility] <content>Units are mL/min/1.73 m2</content>
<content></content>
<content>Chronic Kidney Disease Staging per NKF:</content>
<content></content>
<content>Stage I & II GFR >=60 Normal to Mildly Decreased</content>
<content>Stage III GFR 30- 59 Moderately Decreased</content>
<content>Stage IV GFR 15-29 Severely Decreased</content>
<content>Stage V GFR <15 Very Little GFR Left</content>
<content>ESRD GFR <15 on MEDICAL COLLECTOR</content>
<content></content> Blood Urea Nitrogen 20 mg/dL 7-18 Above high normal [facility] ([facility]) Creatinine For GFR 1.00 mg/dL 0.55-1.30 Normal (applies to non -numeric results) [facility] ([facility]) Chloride Level 102 meq/L 98-107 Normal (applies to non-numeric r esults) [facility] ([facility]) Sodium Level 140 meq/L 136-145 Normal (applies to non-numeric res ults) [facility] ([facility]) Potassium Serum 3.3 meq/L 3.5-5.1 Below low normal [facility] ([facility]) Calcium Level 9.1 mg/dL 8.8-10.2 Normal (applies to non-numeric re sults) [facility] ([facility]) Carbon Dioxide Level 29 meq/L 21-32 Normal (applies to non-num delmy results) [facility] ([facility]) Anion Gap 9 meq/L 8-16 Normal (applies to non-numeric resul ts) [facility] ([facility]) Alt/SGPT 27 U/L 12-78 Normal (applies to non-numeric resul ts) [facility] ([facility]) Ast/Sgot 17 U/L 7-37 Normal (applies to non-numeric resul ts) [facility] ([facility]) Alkaline Phosphatase 54 U/L 45-117 Normal (applies to non-num delmy results) [facility] ([facility]) Albumin 3.6 GM/DL 3.2-5.2 Normal (applies to non-numeric resul ts) [facility]) Total Protein 7.2 GM/DL 6.4-8.2 Normal (applies to non-numeric re [facility]ults) [facility] Bilirubin,Total 0.4 mg/dL 0.2-1.0 Normal (applies to non-numeric results) [facility] Albumin/Globulin Ratio 1.0 1.2-2.2 Below low normal [facility] ([facility]) ID Date Data Source [id number] 01/06/2020 07:58:00 AM EDT [facility] ([facility]) Name Value Range Interpretation Code Description Data Maria M rce(s) Supporting Document(s) Triglycerides Level 272 mg/dL Above high normal [facility] ([facility]) LDL Cholesterol 49 mg/dL Normal (applies to non-numeric results) [facility] ([facility]) HDL Cholesterol 31 mg/dL Below low normal [facility] ([facility]) Cholesterol Level 134 mg/dL Normal (applies to non-numeri c results) [facility] ([facility]) Cholesterol Risk Ratio 4.322 Normal (applies to non-n umeric results) [facility] ([facility]) Non-HDL-C 103 mg/dL Normal (applies to non-numeric resul ts) [facility] ([facility]) ID Date Data Source [id number] 01/06/2020 07:58:00 AM EDT [facility] ([facility]) Name Value Range Interpretation Code Description Data Maria M rce(s) Supporting Document(s) Thyrotropin [Units/volume] in Serum or Plasma 2.370 uIU/ML 0. 358-3.740 Normal (applies to non-numeric results) [facility] ([facility]) Magnesium [Mass/volume] in Serum or Plasma 1.7 mg/dL 1.8-2.4 [place] w low normal [facility] ([facility]) ID Date Data Source [id number] 10/02/2019 10:49:00 AM EDT [facility]) Name Value Range Interpretation Code Description Data Maria M rce(s) Supporting Document(s) Thyrotropin [Units/volume] in Serum or Plasma 1.900 uIU/ML 0. 358-3.740 Normal (applies to non-numeric results) [facility] ([facility]) Magnesium [Mass/volume] in Serum or Plasma 1.8 mg/dL 1.8-2 .4 Normal (applies to non-numeric results) [facility] ([facility]) ID Date Data Source [id number] 10/02/2019 10:49:00 AM EDT [facility] ([facility]) Name Value Range Interpretation Code Description Data Maria M rce(s) Supporting Document(s) Triglycerides Level 240 mg/dL Above high normal [facility] ([facility]) HDL Cholesterol 33 mg/dL Below low normal [facility] ([facility]) Cholesterol Level 137 mg/dL Normal (applies to non-numeri c results) [facility] Non-HDL-C 104 mg/dL Normal (applies to non-numeric resul ts) [facility] Cholesterol Risk Ratio 4.151 Normal (applies to non-n umeric results) [facility]) LDL Cholesterol 56 mg/dL Normal (applies to non-numeric results) [facility] ([facility]) ID Date Data Source [id number] 10/02/2019 10:49:00 AM EDT [facility]) Name Value Range Interpretation Code Description Data Maria M rce(s) Supporting Document(s) Glucose, Fasting 265 mg/dL 70-100 Above high normal [facility] Blood Urea Nitrogen 17 mg/dL 7-18 Normal (applies to non-nume shelly results) [facility] ([facility]) Creatinine For GFR 0.92 mg/dL 0.55-1.30 Normal (applies to non -numeric results) [facility] ([facility]) Glomerular Filtration Rate Laboratory test result Normal (applies to non- numeric results) [facility]) <content>Units are mL/min/1.73 m2</content>
<content></content>
<content>Chronic Kidney Disease Staging per NKF:</content>
<content></content>
<content>Stage I & II GFR >=60 Normal to Mildly Decreased</content>
<content>Stage III GFR 30- 59 Moderately Decreased</content>
<content>Stage IV GFR 15-29 Severely Decreased</content>
<content>Stage V GFR <15 Very Little GFR Left</content>
<content>ESRD GFR <15 on MEDICAL COLLECTOR</content>
<content></content> Potassium Serum 3.5 meq/L 3.5-5.1 Normal (applies to non-numeric results) [facility] ([facility]) Sodium Level 140 meq/L 136-145 Normal (applies to non-numeric res ults) [facility] ([facility]) Chloride Level 99 meq/L 98-107 Normal (applies to non-numeric r esults) [facility] ([facility]) Calcium Level 8.7 mg/dL 8.8-10.2 Below low normal [facility] ([facility]) Anion Gap 10 meq/L 8-16 Normal (applies to non-numeric resul ts) [facility] ([facility]) Carbon Dioxide Level 31 meq/L 21-32 Normal (applies to non-num delmy results) [facility] ([facility]) Ast/Sgot 12 U/L 7-37 Normal (applies to non-numeric resul ts) [facility] ([facility]) Bilirubin,Total 0.5 mg/dL 0.2-1.0 Normal (applies to non-numeric results) [facility] ([facility]) Alt/SGPT 24 U/L 12-78 Normal (applies to non-numeric resul ts) [facility] ([facility]) Alkaline Phosphatase 52 U/L 45-117 Normal (applies to non-num delmy results) [facility] ([facility]) Albumin 3.5 GM/DL 3.2-5.2 Normal (applies to non-numeric resul ts) [facility] ([facility]) Albumin/Globulin Ratio 1.0 1.2-2.2 Below low normal [facility] ([facility]) Total Protein 7.0 GM/DL 6.4-8.2 Normal (applies to non-numeric re sults) [facility] ([facility]) ID Date Data Source [id number] 10/02/2019 10:49:00 AM EDT [facility]) Name Value Range Interpretation Code Description Data Maria M rce(s) Supporting Document(s) Hemoglobin A1c 10.0 % Normal (applies to non-numeric r esults) [facility] ([facility]) REFERENCE RANGES: 4.5-5.6% NORMAL 5.7-6.4% SUGGESTS IMPAIRED GLUCOSE META BOLISM >= 6.5% ABNORMAL Estimated Average Glucose 240 mg/dL 60-110 Above high normal [facility] ([facility]) ID Date Data Source [id number] 10/02/2019 10:49:00 AM EDT [facility] ([facility]) Name Value Range Interpretation Code Description Data Maria M rce(s) Supporting Document(s) [place] % 6.9 % 0.0-5.0 Above high normal [facility] ([facility]) Neutrophils % 65.4 % 36.0-66.0 Normal (applies to non-numeric re sults) [facility] ([facility]) Lymph % 20.1 % 24.0-44.0 Below low normal [facility] ( [facility]) Immature Granulocyte % 0.4 % 0-3.0 Normal (applies to non-n umeric results) [facility] ([facility]) Eos % 6.6 % 0.0-3.0 Above high normal [facility] ([facility]) Baso % 0.6 % 0.0-1.0 Normal (applies to non-numeric resul ts) [facility] ([facility]) Lymph # 1.8 10 1.5-5.0 Normal (applies to non-numeric resul ts) [facility] ([facility]) [place] # 0.6 10 0.0-0.8 Normal (applies to non-numeric resul ts) [facility] ([facility]) Neutrophils # 5.9 10 1.5-8.5 Normal (applies to non-numeric re sults) [facility] ([facility]) Eos # 0.6 10 0.0-0.5 Above high normal [facility] ([facility]) Baso # 0.1 10 0.0-0.2 Normal (applies to non-numeric resul ts) [facility] ([facility]) ID Date Data Source [id number] 10/02/2019 10:49:00 AM EDT [facility] ([facility]) Name Value Range Interpretation Code Description Data Maria M rce(s) Supporting Document(s) Red Blood Count 4.51 10 4.00-5.40 Normal (applies to non-numeric results) [facility] ([facility]) Hemoglobin 12.9 g/dL 12.0-15.5 Normal (applies to non-numeric resul ts) [facility] ([facility]) White Blood Count 9.1 10 4.0-10.0 Normal (applies to non-numeri c results) [facility] ([facility]) Hematocrit 39.0 % 36.0-47.0 Normal (applies to non-numeric resul ts) [facility] ([facility]) Mean Corpuscular Hemoglobin 28.6 pg 27.0-33.0 Norm al (applies to non-numeric results) [facility] ([facility]) Mean Corpuscular Volume 86.5 fl 80.0-96.0 Normal ( applies to non-numeric results) [facility] ([facility]) Nucleated Red Blood Cell % 0.0 % 0-0 Normal (applies to n on-numeric results) [facility] ([facility]) Mean Corpuscular HGB Conc 33.1 g/dL 32.0-36.5 Normal (applies to non-numeric results) [facility] Red Cell Distribution Width 12.2 % 11.5-14.5 Norm al (applies to non-numeric results) [facility] ([facility]) Platelet Count, Automated 285 10 150-450 Normal (applies to non-numeric results) [facility]) ID Date Data Source [id number] 07/28/2019 12:00:00 AM EDT [facility] Renetta Cruz MD Patient Name: ELIZABETH [id number] [facility] Date of : 1950te 201 Date of Exam: 07/28/2019LAZARO B[place] [id number]#: Fax: [phone] EXAM: US EXTREMITY VEINS, UNILATERALCLINICAL [...] the procedure due to pain and decreased urons-hw-xsahch. ColorDoppler imaging suggested patency of the right [...] rce(s) Supporting Document(s) ID Date Data Source [id number] 06/20/2019 11:45:00 AM EST [facility] ([facility]) Name Value Range Interpretation Code Description Data Maria M rce(s) Supporting Document(s) Glucose [Mass/volume] in Capillary blood by Glucometer 297 mg/dL 80- 115 [facility] ([facility]) ID Date Data Source [id number] 06/20/2019 07:11:00 AM EST [facility] ([facility]) Name Value Range Interpretation Code Description Data Maria M rce(s) Supporting Document(s) Glucose [Mass/volume] in Capillary blood by Glucometer 217 mg/dL 80- 115 [facility] ([facility]) ID Date Data Source [id number] 06/20/2019 06:42:00 AM EST [facility] ([facility]) Name Value Range Interpretation Code Description Data Maria M rce(s) Supporting Document(s) Troponin I.cardiac [Mass/volume] in Serum or Plasma Laboratory test result [facility]) <content>Troponin I Reference Interval f or Siemens Ventura LOCI:</content>
<content></content>
<content>99th Percentile= 0.00-0.045 ng/ml</content>
<content></content>
<content>Risk Stratification:</content>
<content><= 0.10 ng/ml Decreased Risk for Adverse Clinical</content>
<content>Events.</content>
<content>0.10-1.50 ng/ml Increased Risk for Adverse Clinical</content>
<content>Events. Evaluation of additional</content>
<content>criterion and/or repeat testing in 2-6</content>
<content>hours is suggested to rule out myocardial</content>
<content>damage.</content>
<content>>= 1.50 ng/ml Indicative of Myocardial Injury.</content>
<content></content> ID Date Data Source [id number] 06/19/2019 09:43:00 PM EST [facility] ([facility]) Name Value Range Interpretation Code Description Data Maria M rce(s) Supporting Document(s) Troponin I.cardiac [Mass/volume] in Serum or Plasma Laboratory test result [facility] ([facility]) <content>Troponin I Reference Interval f or Siemens Ventura LOCI:</content>
<content></content>
<content>99th Percentile= 0.00-0.045 ng/ml</content>
<content></content>
<content>Risk Stratification:</content>
<content><= 0.10 ng/ml Decreased Risk for Adverse Clinical</content>
<content>Events.</content>
<content>0.10-1.50 ng/ml Increased Risk for Adverse Clinical</content>
<content>Events. Evaluation of additional</content>
<content>criterion and/or repeat testing in 2-6</content>
<content>hours is suggested to rule out myocardial</content>
<content>damage.</content>
<content>>= 1.50 ng/ml Indicative of Myocardial Injury.</content>
<content></content> ID Date Data Source [id number] 06/19/2019 08:05:00 PM EST [facility] ([facility]) Name Value Range Interpretation Code Description Data Maria M rce(s) Supporting Document(s) Glucose [Mass/volume] in Capillary blood by Glucometer 259 mg/dL 80- 115 [facility] ([facility]) ID Date Data Source [id number] 06/19/2019 05:06:00 PM EST [facility] ([facility]) Name Value Range Interpretation Code Description Data Maria M rce(s) Supporting Document(s) Glucose [Mass/volume] in Capillary blood by Glucometer 251 mg/dL 80- 115 [facility] ([facility]) ID Date Data Source [id number] 06/19/2019 03:52:00 PM EST [facility] ([facility]) Name Value Range Interpretation Code Description Data Maria M rce(s) Supporting Document(s) Troponin I.cardiac [Mass/volume] in Serum or Plasma Laboratory test result [facility] ([facility]) <content>Troponin I Reference Interval f or Siemens Ventura LOCI:</content>
<content></content>
<content>99th Percentile= 0.00-0.045 ng/ml</content>
<content></content>
<content>Risk Stratification:</content>
<content><= 0.10 ng/ml Decreased Risk for Adverse Clinical</content>
<content>Events.</content>
<content>0.10-1.50 ng/ml Increased Risk for Adverse Clinical</content>
<content>Events. Evaluation of additional</content>
<content>criterion and/or repeat testing in 2-6</content>
<content>hours is suggested to rule out myocardial</content>
<content>damage.</content>
<content>>= 1.50 ng/ml Indicative of Myocardial Injury.</content>
<content></content> ID Date Data Source [id number] 06/19/2019 03:52:00 PM EST [facility] ([facility]) Name Value Range Interpretation Code Description Data Maria M rce(s) Supporting Document(s) Glucose, Fasting 294 mg/dL 70-100 [facility] ([facility]) Creatinine For GFR 1.08 mg/dL 0.55-1.30 [facility] ([facility]) Blood Urea Nitrogen 20 mg/dL 7-18 [facility] ([facility]) Sodium Level 138 meq/L 136-145 [facility] ([facility]) Glomerular Filtration Rate 53.9 [facility] ([facility]) <content>Units are mL/min/1.73 m2</content>
<content></content>
<content>Chronic Kidney Disease Staging per NKF:</content>
<content></content>
<content>Stage I & II GFR >=60 Normal to Mildly Decreased</content>
<content>Stage III GFR 30- 59 Moderately Decreased</content>
<content>Stage IV GFR 15-29 Severely Decreased</content>
<content>Stage V GFR <15 Very Little GFR Left</content>
<content>ESRD GFR <15 on MEDICAL COLLECTOR</content>
<content></content> Chloride Level 103 meq/L 98-107 [facility] ([facility]) Carbon Dioxide Level 24 meq/L 21-32 [facility] ([facility]) Potassium Serum 3.2 meq/L 3.5-5.1 [facility] ([facility]) Calcium Level 8.9 mg/dL 8.8-10.2 [facility] ([facility]) Anion Gap 11 meq/L 8-16 [facility] ([facility]) ID Date Data Source [id number] 06/19/2019 03:52:00 PM EST [facility] ([facility]) Name Value Range Interpretation Code Description Data Maria M rce(s) Supporting Document(s) CPK Creatine Phosphokinase 176 U/L 26-192 [facility] ([facility]) CK-MB Value Mass 2.8 ng/mL [facility] ([facility] MB/CK Relative Index 1.59 [facility] ([facility]) <content>DIAGNOSIS CRITERIA</content>
<content>MMB ng/ml Relative Index (RI)</content>
<content>NON-AMI < or = 5 N/A</content>
<content>ATKINSON ZONE > 5 < or = 4</content>
<content>AMI > 5 > 4</content>
<content></content> ID Date Data Source [id number] 06/19/2019 03:52:00 PM EST [facility] ([facility] ) Name Value Range Interpretation Code Description Data Maria M rce(s) Supporting Document(s) Red Blood Count 4.95 10 4.00-5.40 [facility] ([facility]) Hematocrit 44.0 % 36.0-47.0 [facility] ([facility]) White Blood Count 11.4 10 4.0-10.0 [facility] ([facility]) Hemoglobin 14.2 g/dL 12.0-15.5 [facility] ([facility]) Mean Corpuscular HGB Conc 32.3 g/dL 32.0-36.5 [facility] ([facility] ) Mean Corpuscular Hemoglobin 28.7 pg 27.0-33.0 [facility] ([facility] ) Mean Corpuscular Volume 88.9 fl 80.0-96.0 M [facility] ([facility] ) Platelet Count, Automated 304 10 150-450 [facility] ([facility] ) Red Cell Distribution Width 12.0 % 11.5-14.5 [facility] ([facility] ) Nucleated Red Blood Cell % 0.0 % 0-0 [facility] ([facility] ) ID Date Data Source [id number] 06/19/2019 02:58:00 PM EST [facility] ([facility] ) Name Value Range Interpretation Code Description Data Maria M rce(s) Supporting Document(s) Glucose [Mass/volume] in Capillary blood by Glucometer 315 mg/dL 80- 115 [facility] ([facility]) ID Date Data Source [id number] 06/19/2019 01:01:00 PM EST [facility] ([facility]) Name Value Range Interpretation Code Description Data Maria M rce(s) Supporting Document(s) Surgical pathology study Laboratory test result [facility] ([facility]) FINAL DIAGNOSIS Right biceps proximal tendon: Portion of benign tendon without significant pathologic findings. 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 Storeroom Supervisor sections submitted in one cassette. -MS 06/22/2019 - 1306 Signed KIP ARAUZ MD 06/23/2019 1326 ID Date Data Source [id number] 06/19/2019 09:28:00 AM EST [facility] ([facility]) Name Value Range Interpretation Code Description Data Maria M rce(s) Supporting Document(s) Glucose [Mass/volume] in Capillary blood by Glucometer 243 mg/dL 80- 115 [facility] ([facility]) ID Date Data Source [id number] 06/10/2019 05:12:00 PM [facility] Name Value Range Interpretation Code Description Data Maria M rce(s) Supporting Document(s) Prothrombin time (PT) 13.2 SECONDS 11.0 - 15.5 [facility] INR in Platelet poor plasma by Coagulation assay 0.99 0.93 - 1. 23 [facility] \\BLDo\\INR INTERPRETATION\\BLDx\\ Therapeutic range for Coumadin and related oral anticoagulants. - International Normalized Ratio (INR): 2.0 - 3.0 for Venous Thrombosis, Pulmonary Embolus, Tissue heart valves, Acute ID, Atrial Fibrillation, Valvular heart disease and recurrent Systemic Embolism. -International Normalized Ratio (INR): 2.5 - 3.5 for Mechanical Prosthetic valve. ID Date Data Source [id number] 06/09/2019 02:40:00 PM EST [facility] ([facility]) Name Value Range Interpretation Code Description Data Maria M rce(s) Supporting Document(s) Hemoglobin A1c/Hemoglobin.total in Blood 11.0 % 4.4-6.1 Above high normal [facility] ([facility]) .~.~<DG1.3.1>Z01.812</DG1.3.1><DG1.3.1>E11.65</DG1.3.1><DG1.3.1>Z79.899</DG1.3.1 ><DG Is patient fasting? N~.~.~<DG1.3.1>Z01.812</DG1.3.1><DG1.3.1>E11.65</DG1.3.1><DG1.3.1>Z79.899</D .~.~<DG1.3.1> Z01.812</DG1.3.1><DG1.3.1>E11.65</DG1.3.1><DG1.3.1>Z79.899</DG1.3.1><DG .~.~<DG1.3.1>Z01.812</DG1.3.1><DG1.3.1>E11.65</DG1.3.1><DG1.3.1>Z79.899</DG1.3.1 ><DG ID Date Data Source [id number] 06/09/2019 02:40:00 PM EST [facility] ([facility]) Name Value Range Interpretation Code Description Data Maria M rce(s) Supporting Document(s) Inr 0.99 0.93-1.23 [facility] ([facility]) .~.~<DG1.3.1>Z01.812</DG1.3.1><DG1.3.1>E11.65</DG1.3.1><DG1.3.1>Z79.899</DG1.3.1 ><DG Is patient fasting? N~.~.~<DG1.3.1>Z01.812</DG1.3.1><DG1.3.1>E11.65</DG1.3.1><DG1.3.1>Z79.899</D .~.~<DG1.3.1> Z01.812</DG1.3.1><DG1.3.1>E11.65</DG1.3.1><DG1.3.1>Z79.899</DG1.3.1><DG .~.~<DG1.3.1>Z01.812</DG1.3.1><DG1.3.1>E11.65</DG1.3.1><DG1.3.1>Z79.899</DG1.3.1 ><DG Protime 13.2 s 11.0-15.5 [facility] ([facility]) .~.~<DG1.3.1>Z01.812</DG1.3.1><DG1.3.1>E11.65</DG1.3.1><DG1.3.1>Z79.899</DG1.3.1 ><DG Is patient fasting? N~.~.~<DG1.3.1>Z01.812</DG1.3.1><DG1.3.1>E11.65</DG1.3.1><DG1.3.1>Z79.899</D .~.~<DG1.3.1> Z01.812</DG1.3.1><DG1.3.1>E11.65</DG1.3.1><DG1.3.1>Z79.899</DG1.3.1><DG .~.~<DG1.3.1>Z01.812</DG1.3.1><DG1.3.1>E11.65</DG1.3.1><DG1.3.1>Z79.899</DG1.3.1 ><DG ID Date Data Source [id number] 06/09/2019 02:40:00 PM EST [facility] ([facility]) Name Value Range Interpretation Code Description Data Maria M rce(s) Supporting Document(s) PTT 33.3 s 24.8-36.7 [facility] .~.~<DG1.3.1>Z01.812</DG1.3.1><DG1.3.1>E11.65</DG1.3.1><DG1.3.1>Z79.899</DG1.3.1 ><DG Is patient fasting? N~.~.~<DG1.3.1>Z01.812</DG1.3.1><DG1.3.1>E11.65</DG1.3.1><DG1.3.1>Z79.899</D .~.~<DG1.3.1> Z01.812</DG1.3.1><DG1.3.1>E11.65</DG1.3.1><DG1.3.1>Z79.899</DG1.3.1><DG .~.~<DG1.3.1>Z01.812</DG1.3.1><DG1.3.1>E11.65</DG1.3.1><DG1.3.1>Z79.899</DG1.3.1 ><DG Inr 0.99 0.93-1.23 [facility] ([facility]) .~.~<DG1.3.1>Z01.812</DG1.3.1><DG1.3.1>E11.65</DG1.3.1><DG1.3.1>Z79.899</DG1.3.1 ><DG Is patient fasting? N~.~.~<DG1.3.1>Z01.812</DG1.3.1><DG1.3.1>E11.65</DG1.3.1><DG1.3.1>Z79.899</D .~.~<DG1.3.1> Z01.812</DG1.3.1><DG1.3.1>E11.65</DG1.3.1><DG1.3.1>Z79.899</DG1.3.1><DG .~.~<DG1.3.1>Z01.812</DG1.3.1><DG1.3.1>E11.65</DG1.3.1><DG1.3.1>Z79.899</DG1.3.1 ><DG Protime 13.2 s 11.0-15.5 [facility] ([facility]) .~.~<DG1.3.1>Z01.812</DG1.3.1><DG1.3.1>E11.65</DG1.3.1><DG1.3.1>Z79.899</DG1.3.1 ><DG Is patient fasting? N~.~.~<DG1.3.1>Z01.812</DG1.3.1><DG1.3.1>E11.65</DG1.3.1><DG1.3.1>Z79.899</D .~.~<DG1.3.1> Z01.812</DG1.3.1><DG1.3.1>E11.65</DG1.3.1><DG1.3.1>Z79.899</DG1.3.1><DG .~.~<DG1.3.1>Z01.812</DG1.3.1><DG1.3.1>E11.65</DG1.3.1><DG1.3.1>Z79.899</DG1.3.1 ><DG ID Date Data Source [id number] 06/09/2019 02:40:00 PM EST [facility] ([facility]) Name Value Range Interpretation Code Description Data Maria M rce(s) Supporting Document(s) Comprehensive [employer] Laboratory test result [facility] ([facility]) .~.~<DG1.3.1>Z01.812</DG1.3.1><DG1.3.1>E11.65</DG1.3.1><DG1.3.1>Z79.899</DG1.3.1 ><DG Is patient fasting? N~.~.~<DG1.3.1>Z01.812</DG1.3.1><DG1.3.1>E11.65</DG1.3.1><DG1.3.1>Z79.899</D .~.~<DG1.3.1> Z01.812</DG1.3.1><DG1.3.1>E11.65</DG1.3.1><DG1.3.1>Z79.899</DG1.3.1><DG .~.~<DG1.3.1>Z01.812</DG1.3.1><DG1.3.1>E11.65</DG1.3.1><DG1.3.1>Z79.899</DG1.3.1 ><DG Sodium 140 meq/L 134-153 [facility] ([facility]) .~.~<DG1.3.1>Z01.812</DG1.3.1><DG1.3.1>E11.65</DG1.3.1><DG1.3.1>Z79.899</DG1.3.1 ><DG Is patient fasting? N~.~.~<DG1.3.1>Z01.812</DG1.3.1><DG1.3.1>E11.65</DG1.3.1><DG1.3.1>Z79.899</D .~.~<DG1.3.1> Z01.812</DG1.3.1><DG1.3.1>E11.65</DG1.3.1><DG1.3.1>Z79.899</DG1.3.1><DG .~.~<DG1.3.1>Z01.812</DG1.3.1><DG1.3.1>E11.65</DG1.3.1><DG1.3.1>Z79.899</DG1.3.1 ><DG Chloride 99 meq/L 98-107 [facility] ([facility]) .~.~<DG1.3.1>Z01.812</DG1.3.1><DG1.3.1>E11.65</DG1.3.1><DG1.3.1>Z79.899</DG1.3.1 ><DG Is patient fasting? N~.~.~<DG1.3.1>Z01.812</DG1.3.1><DG1.3.1>E11.65</DG1.3.1><DG1.3.1>Z79.899</D .~.~<DG1.3.1> Z01.812</DG1.3.1><DG1.3.1>E11.65</DG1.3.1><DG1.3.1>Z79.899</DG1.3.1><DG .~.~<DG1.3.1>Z01.812</DG1.3.1><DG1.3.1>E11.65</DG1.3.1><DG1.3.1>Z79.899</DG1.3.1 ><DG Potassium 4.3 meq/L 3.6-5.0 [facility] ([facility]) .~.~<DG1.3.1>Z01.812</DG1.3.1><DG1.3.1>E11.65</DG1.3.1><DG1.3.1>Z79.899</DG1.3.1 ><DG Is patient fasting? N~.~.~<DG1.3.1>Z01.812</DG1.3.1><DG1.3.1>E11.65</DG1.3.1><DG1.3.1>Z79.899</D .~.~<DG1.3.1> Z01.812</DG1.3.1><DG1.3.1>E11.65</DG1.3.1><DG1.3.1>Z79.899</DG1.3.1><DG .~.~<DG1.3.1>Z01.812</DG1.3.1><DG1.3.1>E11.65</DG1.3.1><DG1.3.1>Z79.899</DG1.3.1 ><DG Co2 26 meq/L 22-30 [facility] ([facility]) .~.~<DG1.3.1>Z01.812</DG1.3.1><DG1.3.1>E11.65</DG1.3.1><DG1.3.1>Z79.899</DG1.3.1 ><DG Is patient fasting? N~.~.~<DG1.3.1>Z01.812</DG1.3.1><DG1.3.1>E11.65</DG1.3.1><DG1.3.1>Z79.899</D .~.~<DG1.3.1> Z01.812</DG1.3.1><DG1.3.1>E11.65</DG1.3.1><DG1.3.1>Z79.899</DG1.3.1><DG .~.~<DG1.3.1>Z01.812</DG1.3.1><DG1.3.1>E11.65</DG1.3.1><DG1.3.1>Z79.899</DG1.3.1 ><DG Glucose 293 mg/dL 65-110 Above high normal [facility] ([facility]) .~.~<DG1.3.1>Z01.812</DG1.3.1><DG1.3.1>E11.65</DG1.3.1><DG1.3.1>Z79.899</DG1.3.1 ><DG Is patient fasting? N~.~.~<DG1.3.1>Z01.812</DG1.3.1><DG1.3.1>E11.65</DG1.3.1><DG1.3.1>Z79.899</D .~.~<DG1.3.1> Z01.812</DG1.3.1><DG1.3.1>E11.65</DG1.3.1><DG1.3.1>Z79.899</DG1.3.1><DG .~.~<DG1.3.1>Z01.812</DG1.3.1><DG1.3.1>E11.65</DG1.3.1><DG1.3.1>Z79.899</DG1.3.1 ><DG Creatinine 0.8 mg/dL 0.7-1.5 [facility]) .~.~<DG1.3.1>Z01.812</DG1.3.1><DG1.3.1>E11.65</DG1.3.1><DG1.3.1>Z79.899</DG1.3.1 ><DG Is patient fasting? N~.~.~<DG1.3.1>Z01.812</DG1.3.1><DG1.3.1>E11.65</DG1.3.1><DG1.3.1>Z79.899</D .~.~<DG1.3.1> Z01.812</DG1.3.1><DG1.3.1>E11.65</DG1.3.1><DG1.3.1>Z79.899</DG1.3.1><DG .~.~<DG1.3.1>Z01.812</DG1.3.1><DG1.3.1>E11.65</DG1.3.1><DG1.3.1>Z79.899</DG1.3.1 ><DG BUN 16 mg/dL 7-21 [facility] ([facility]) .~.~<DG1.3.1>Z01.812</DG1.3.1><DG1.3.1>E11.65</DG1.3.1><DG1.3.1>Z79.899</DG1.3.1 ><DG Is patient fasting? N~.~.~<DG1.3.1>Z01.812</DG1.3.1><DG1.3.1>E11.65</DG1.3.1><DG1.3.1>Z79.899</D .~.~<DG1.3.1> Z01.812</DG1.3.1><DG1.3.1>E11.65</DG1.3.1><DG1.3.1>Z79.899</DG1.3.1><DG .~.~<DG1.3.1>Z01.812</DG1.3.1><DG1.3.1>E11.65</DG1.3.1><DG1.3.1>Z79.899</DG1.3.1 ><DG Total Protein 7.3 g/dL 6.3-8.2 [facility] ([facility]) .~.~<DG1.3.1>Z01.812</DG1.3.1><DG1.3.1>E11.65</DG1.3.1><DG1.3.1>Z79.899</DG1.3.1 ><DG Is patient fasting? N~.~.~<DG1.3.1>Z01.812</DG1.3.1><DG1.3.1>E11.65</DG1.3.1><DG1.3.1>Z79.899</D .~.~<DG1.3.1> Z01.812</DG1.3.1><DG1.3.1>E11.65</DG1.3.1><DG1.3.1>Z79.899</DG1.3.1><DG .~.~<DG1.3.1>Z01.812</DG1.3.1><DG1.3.1>E11.65</DG1.3.1><DG1.3.1>Z79.899</DG1.3.1 ><DG BUN/Creat 20 8-27 [facility] .~.~<DG1.3.1>Z01.812</DG1.3.1><DG1.3.1>E11.65</DG1.3.1><DG1.3.1>Z79.899</DG1.3.1 ><DG Is patient fasting? N~.~.~<DG1.3.1>Z01.812</DG1.3.1><DG1.3.1>E11.65</DG1.3.1><DG1.3.1>Z79.899</D .~.~<DG1.3.1> Z01.812</DG1.3.1><DG1.3.1>E11.65</DG1.3.1><DG1.3.1>Z79.899</DG1.3.1><DG .~.~<DG1.3.1>Z01.812</DG1.3.1><DG1.3.1>E11.65</DG1.3.1><DG1.3.1>Z79.899</DG1.3.1 ><DG Globulin 2.9 GM/DL 2.4-3.2 [facility] ([facility]) .~.~<DG1.3.1>Z01.812</DG1.3.1><DG1.3.1>E11.65</DG1.3.1><DG1.3.1>Z79.899</DG1.3.1 ><DG Is patient fasting? N~.~.~<DG1.3.1>Z01.812</DG1.3.1><DG1.3.1>E11.65</DG1.3.1><DG1.3.1>Z79.899</D .~.~<DG1.3.1> Z01.812</DG1.3.1><DG1.3.1>E11.65</DG1.3.1><DG1.3.1>Z79.899</DG1.3.1><DG .~.~<DG1.3.1>Z01.812</DG1.3.1><DG1.3.1>E11.65</DG1.3.1><DG1.3.1>Z79.899</DG1.3.1 ><DG Albumin 4.4 g/dL 3.9-5.0 [facility] ([facility]) .~.~<DG1.3.1>Z01.812</DG1.3.1><DG1.3.1>E11.65</DG1.3.1><DG1.3.1>Z79.899</DG1.3.1 ><DG Is patient fasting? N~.~.~<DG1.3.1>Z01.812</DG1.3.1><DG1.3.1>E11.65</DG1.3.1><DG1.3.1>Z79.899</D .~.~<DG1.3.1> Z01.812</DG1.3.1><DG1.3.1>E11.65</DG1.3.1><DG1.3.1>Z79.899</DG1.3.1><DG .~.~<DG1.3.1>Z01.812</DG1.3.1><DG1.3.1>E11.65</DG1.3.1><DG1.3.1>Z79.899</DG1.3.1 ><DG A/G Ratio 1.5 0.8-2.0 [facility] .~.~<DG1.3.1>Z01.812</DG1.3.1><DG1.3.1>E11.65</DG1.3.1><DG1.3.1>Z79.899</DG1.3.1 ><DG Is patient fasting? N~.~.~<DG1.3.1>Z01.812</DG1.3.1><DG1.3.1>E11.65</DG1.3.1><DG1.3.1>Z79.899</D .~.~<DG1.3.1> Z01.812</DG1.3.1><DG1.3.1>E11.65</DG1.3.1><DG1.3.1>Z79.899</DG1.3.1><DG .~.~<DG1.3.1>Z01.812</DG1.3.1><DG1.3.1>E11.65</DG1.3.1><DG1.3.1>Z79.899</DG1.3.1 ><DG Calcium 9.7 mg/dL 8.4-10.2 [facility] .~.~<DG1.3.1>Z01.812</DG1.3.1><DG1.3.1>E11.65</DG1.3.1><DG1.3.1>Z79.899</DG1.3.1 ><DG Is patient fasting? N~.~.~<DG1.3.1>Z01.812</DG1.3.1><DG1.3.1>E11.65</DG1.3.1><DG1.3.1>Z79.899</D .~.~<DG1.3.1> Z01.812</DG1.3.1><DG1.3.1>E11.65</DG1.3.1><DG1.3.1>Z79.899</DG1.3.1><DG .~.~<DG1.3.1>Z01.812</DG1.3.1><DG1.3.1>E11.65</DG1.3.1><DG1.3.1>Z79.899</DG1.3.1 ><DG Alkaline Phos 52 U/L 38-126 [facility] ([facility]) .~.~<DG1.3.1>Z01.812</DG1.3.1><DG1.3.1>E11.65</DG1.3.1><DG1.3.1>Z79.899</DG1.3.1 ><DG Is patient fasting? N~.~.~<DG1.3.1>Z01.812</DG1.3.1><DG1.3.1>E11.65</DG1.3.1><DG1.3.1>Z79.899</D .~.~<DG1.3.1> Z01.812</DG1.3.1><DG1.3.1>E11.65</DG1.3.1><DG1.3.1>Z79.899</DG1.3.1><DG .~.~<DG1.3.1>Z01.812</DG1.3.1><DG1.3.1>E11.65</DG1.3.1><DG1.3.1>Z79.899</DG1.3.1 ><DG Total Bili 0.7 mg/dL 0.2-1.3 [facility] ([facility]) .~.~<DG1.3.1>Z01.812</DG1.3.1><DG1.3.1>E11.65</DG1.3.1><DG1.3.1>Z79.899</DG1.3.1 ><DG Is patient fasting? N~.~.~<DG1.3.1>Z01.812</DG1.3.1><DG1.3.1>E11.65</DG1.3.1><DG1.3.1>Z79.899</D .~.~<DG1.3.1> Z01.812</DG1.3.1><DG1.3.1>E11.65</DG1.3.1><DG1.3.1>Z79.899</DG1.3.1><DG .~.~<DG1.3.1>Z01.812</DG1.3.1><DG1.3.1>E11.65</DG1.3.1><DG1.3.1>Z79.899</DG1.3.1 ><DG Sgot/Ast 21 U/L 5-40 [facility] ([facility]) .~.~<DG1.3.1>Z01.812</DG1.3.1><DG1.3.1>E11.65</DG1.3.1><DG1.3.1>Z79.899</DG1.3.1 ><DG Is patient fasting? N~.~.~<DG1.3.1>Z01.812</DG1.3.1><DG1.3.1>E11.65</DG1.3.1><DG1.3.1>Z79.899</D .~.~<DG1.3.1> Z01.812</DG1.3.1><DG1.3.1>E11.65</DG1.3.1><DG1.3.1>Z79.899</DG1.3.1><DG .~.~<DG1.3.1>Z01.812</DG1.3.1><DG1.3.1>E11.65</DG1.3.1><DG1.3.1>Z79.899</DG1.3.1 ><DG Age 68 yrs [facility] ([facility]) .~.~<DG1.3.1>Z01.812</DG1.3.1><DG1.3.1>E11.65</DG1.3.1><DG1.3.1>Z79.899</DG1.3.1 ><DG Is patient fasting? N~.~.~<DG1.3.1>Z01.812</DG1.3.1><DG1.3.1>E11.65</DG1.3.1><DG1.3.1>Z79.899</D .~.~<DG1.3.1> Z01.812</DG1.3.1><DG1.3.1>E11.65</DG1.3.1><DG1.3.1>Z79.899</DG1.3.1><DG .~.~<DG1.3.1>Z01.812</DG1.3.1><DG1.3.1>E11.65</DG1.3.1><DG1.3.1>Z79.899</DG1.3.1 ><DG SGPT/Alt 18 U/L 7-56 [facility] ([facility]) .~.~<DG1.3.1>Z01.812</DG1.3.1><DG1.3.1>E11.65</DG1.3.1><DG1.3.1>Z79.899</DG1.3.1 ><DG Is patient fasting? N~.~.~<DG1.3.1>Z01.812</DG1.3.1><DG1.3.1>E11.65</DG1.3.1><DG1.3.1>Z79.899</D .~.~<DG1.3.1> Z01.812</DG1.3.1><DG1.3.1>E11.65</DG1.3.1><DG1.3.1>Z79.899</DG1.3.1><DG .~.~<DG1.3.1>Z01.812</DG1.3.1><DG1.3.1>E11.65</DG1.3.1><DG1.3.1>Z79.899</DG1.3.1 ><DG Anion Gap 15.0 mmol/L 8.0-16.0 [facility] .~.~<DG1.3.1>Z01.812</DG1.3.1><DG1.3.1>E11.65</DG1.3.1><DG1.3.1>Z79.899</DG1.3.1 ><DG Is patient fasting? N~.~.~<DG1.3.1>Z01.812</DG1.3.1><DG1.3.1>E11.65</DG1.3.1><DG1.3.1>Z79.899</D .~.~<DG1.3.1> Z01.812</DG1.3.1><DG1.3.1>E11.65</DG1.3.1><DG1.3.1>Z79.899</DG1.3.1><DG .~.~<DG1.3.1>Z01.812</DG1.3.1><DG1.3.1>E11.65</DG1.3.1><DG1.3.1>Z79.899</DG1.3.1 ><DG Non-Aa GFR Laboratory test result [facility] ([facility]) .~.~<DG1.3.1>Z01.812</DG1.3.1><DG1.3.1>E11.65</DG1.3.1><DG1.3.1>Z79.899</DG1.3.1 ><DG Is patient fasting? N~.~.~<DG1.3.1>Z01.812</DG1.3.1><DG1.3.1>E11.65</DG1.3.1><DG1.3.1>Z79.899</D .~.~<DG1.3.1> Z01.812</DG1.3.1><DG1.3.1>E11.65</DG1.3.1><DG1.3.1>Z79.899</DG1.3.1><DG .~.~<DG1.3.1>Z01.812</DG1.3.1><DG1.3.1>E11.65</DG1.3.1><DG1.3.1>Z79.899</DG1.3.1 ><DG Afr Amer GFR Laboratory test result [facility] ([facility]) .~.~<DG1.3.1>Z01.812</DG1.3.1><DG1.3.1>E11.65</DG1.3.1><DG1.3.1>Z79.899</DG1.3.1 ><DG Is patient fasting? N~.~.~<DG1.3.1>Z01.812</DG1.3.1><DG1.3.1>E11.65</DG1.3.1><DG1.3.1>Z79.899</D .~.~<DG1.3.1> Z01.812</DG1.3.1><DG1.3.1>E11.65</DG1.3.1><DG1.3.1>Z79.899</DG1.3.1><DG .~.~<DG1.3.1>Z01.812</DG1.3.1><DG1.3.1>E11.65</DG1.3.1><DG1.3.1>Z79.899</DG1.3.1 ><DG ID Date Data Source [id number] 06/09/2019 02:40:00 PM EST [facility] ([facility]) Name Value Range Interpretation Code Description Data Maria M rce(s) Supporting Document(s) CBC W/Automated Diff Laboratory test [facility] .~.~<DG1.3.1>Z01.812</DG1.3.1><DG1.3.1>E11.65</DG1.3.1><DG1.3.1>Z79.899</DG1.3.1 ><DG Is patient fasting? N~.~.~<DG1.3.1>Z01.812</DG1.3.1><DG1.3.1>E11.65</DG1.3.1><DG1.3.1>Z79.899</D .~.~<DG1.3.1> Z01.812</DG1.3.1><DG1.3.1>E11.65</DG1.3.1><DG1.3.1>Z79.899</DG1.3.1><DG .~.~<DG1.3.1>Z01.812</DG1.3.1><DG1.3.1>E11.65</DG1.3.1><DG1.3.1>Z79.899</DG1.3.1 ><DG WBC 10.6 10^3/uL 4.2-11.0 [facility] .~.~<DG1.3.1>Z01.812</DG1.3.1><DG1.3.1>E11.65</DG1.3.1><DG1.3.1>Z79.899</DG1.3.1 ><DG Is patient fasting? N~.~.~<DG1.3.1>Z01.812</DG1.3.1><DG1.3.1>E11.65</DG1.3.1><DG1.3.1>Z79.899</D .~.~<DG1.3.1> Z01.812</DG1.3.1><DG1.3.1>E11.65</DG1.3.1><DG1.3.1>Z79.899</DG1.3.1><DG .~.~<DG1.3.1>Z01.812</DG1.3.1><DG1.3.1>E11.65</DG1.3.1><DG1.3.1>Z79.899</DG1.3.1 ><DG Hematocrit 43.7 % 37.0-47.0 [facility] ([facility]) .~.~<DG1.3.1>Z01.812</DG1.3.1><DG1.3.1>E11.65</DG1.3.1><DG1.3.1>Z79.899</DG1.3.1 ><DG Is patient fasting? N~.~.~<DG1.3.1>Z01.812</DG1.3.1><DG1.3.1>E11.65</DG1.3.1><DG1.3.1>Z79.899</D .~.~<DG1.3.1> Z01.812</DG1.3.1><DG1.3.1>E11.65</DG1.3.1><DG1.3.1>Z79.899</DG1.3.1><DG .~.~<DG1.3.1>Z01.812</DG1.3.1><DG1.3.1>E11.65</DG1.3.1><DG1.3.1>Z79.899</DG1.3.1 ><DG MCV 89.7 fL 81.0-101 [facility] ([facility]) .~.~<DG1.3.1>Z01.812</DG1.3.1><DG1.3.1>E11.65</DG1.3.1><DG1.3.1>Z79.899</DG1.3.1 ><DG Is patient fasting? N~.~.~<DG1.3.1>Z01.812</DG1.3.1><DG1.3.1>E11.65</DG1.3.1><DG1.3.1>Z79.899</D .~.~<DG1.3.1> Z01.812</DG1.3.1><DG1.3.1>E11.65</DG1.3.1><DG1.3.1>Z79.899</DG1.3.1><DG .~.~<DG1.3.1>Z01.812</DG1.3.1><DG1.3.1>E11.65</DG1.3.1><DG1.3.1>Z79.899</DG1.3.1 ><DG Hemoglobin 14.2 g/dL 12.0-16.0 [facility] ([facility]) .~.~<DG1.3.1>Z01.812</DG1.3.1><DG1.3.1>E11.65</DG1.3.1><DG1.3.1>Z79.899</DG1.3.1 ><DG Is patient fasting? N~.~.~<DG1.3.1>Z01.812</DG1.3.1><DG1.3.1>E11.65</DG1.3.1><DG1.3.1>Z79.899</D .~.~<DG1.3.1> Z01.812</DG1.3.1><DG1.3.1>E11.65</DG1.3.1><DG1.3.1>Z79.899</DG1.3.1><DG .~.~<DG1.3.1>Z01.812</DG1.3.1><DG1.3.1>E11.65</DG1.3.1><DG1.3.1>Z79.899</DG1.3.1 ><DG RBC 4.87 10^6/uL 4.20-5.40 [facility] ([facility]) .~.~<DG1.3.1>Z01.812</DG1.3.1><DG1.3.1>E11.65</DG1.3.1><DG1.3.1>Z79.899</DG1.3.1 ><DG Is patient fasting? N~.~.~<DG1.3.1>Z01.812</DG1.3.1><DG1.3.1>E11.65</DG1.3.1><DG1.3.1>Z79.899</D .~.~<DG1.3.1> Z01.812</DG1.3.1><DG1.3.1>E11.65</DG1.3.1><DG1.3.1>Z79.899</DG1.3.1><DG .~.~<DG1.3.1>Z01.812</DG1.3.1><DG1.3.1>E11.65</DG1.3.1><DG1.3.1>Z79.899</DG1.3.1 ><DG MCHC 32.5 g/dL 31.0-36.0 [facility] ([facility]) .~.~<DG1.3.1>Z01.812</DG1.3.1><DG1.3.1>E11.65</DG1.3.1><DG1.3.1>Z79.899</DG1.3.1 ><DG Is patient fasting? N~.~.~<DG1.3.1>Z01.812</DG1.3.1><DG1.3.1>E11.65</DG1.3.1><DG1.3.1>Z79.899</D .~.~<DG1.3.1> Z01.812</DG1.3.1><DG1.3.1>E11.65</DG1.3.1><DG1.3.1>Z79.899</DG1.3.1><DG .~.~<DG1.3.1>Z01.812</DG1.3.1><DG1.3.1>E11.65</DG1.3.1><DG1.3.1>Z79.899</DG1.3.1 ><DG MCH 29.2 pg 27.0-34.0 [facility] ([facility]) .~.~<DG1.3.1>Z01.812</DG1.3.1><DG1.3.1>E11.65</DG1.3.1><DG1.3.1>Z79.899</DG1.3.1 ><DG Is patient fasting? N~.~.~<DG1.3.1>Z01.812</DG1.3.1><DG1.3.1>E11.65</DG1.3.1><DG1.3.1>Z79.899</D .~.~<DG1.3.1> Z01.812</DG1.3.1><DG1.3.1>E11.65</DG1.3.1><DG1.3.1>Z79.899</DG1.3.1><DG .~.~<DG1.3.1>Z01.812</DG1.3.1><DG1.3.1>E11.65</DG1.3.1><DG1.3.1>Z79.899</DG1.3.1 ><DG RDW 12.2 % 11.5-14.5 [facility] ([facility]) .~.~<DG1.3.1>Z01.812</DG1.3.1><DG1.3.1>E11.65</DG1.3.1><DG1.3.1>Z79.899</DG1.3.1 ><DG Is patient fasting? N~.~.~<DG1.3.1>Z01.812</DG1.3.1><DG1.3.1>E11.65</DG1.3.1><DG1.3.1>Z79.899</D .~.~<DG1.3.1> Z01.812</DG1.3.1><DG1.3.1>E11.65</DG1.3.1><DG1.3.1>Z79.899</DG1.3.1><DG .~.~<DG1.3.1>Z01.812</DG1.3.1><DG1.3.1>E11.65</DG1.3.1><DG1.3.1>Z79.899</DG1.3.1 ><DG Neut 66.9 % 37.0-80.0 [facility] ([facility]) .~.~<DG1.3.1>Z01.812</DG1.3.1><DG1.3.1>E11.65</DG1.3.1><DG1.3.1>Z79.899</DG1.3.1 ><DG Is patient fasting? N~.~.~<DG1.3.1>Z01.812</DG1.3.1><DG1.3.1>E11.65</DG1.3.1><DG1.3.1>Z79.899</D .~.~<DG1.3.1> Z01.812</DG1.3.1><DG1.3.1>E11.65</DG1.3.1><DG1.3.1>Z79.899</DG1.3.1><DG .~.~<DG1.3.1>Z01.812</DG1.3.1><DG1.3.1>E11.65</DG1.3.1><DG1.3.1>Z79.899</DG1.3.1 ><DG MPV 10.7 fL 7.4-10.4 Above high normal [facility] ([facility]) .~.~<DG1.3.1>Z01.812</DG1.3.1><DG1.3.1>E11.65</DG1.3.1><DG1.3.1>Z79.899</DG1.3.1 ><DG Is patient fasting? N~.~.~<DG1.3.1>Z01.812</DG1.3.1><DG1.3.1>E11.65</DG1.3.1><DG1.3.1>Z79.899</D .~.~<DG1.3.1> Z01.812</DG1.3.1><DG1.3.1>E11.65</DG1.3.1><DG1.3.1>Z79.899</DG1.3.1><DG .~.~<DG1.3.1>Z01.812</DG1.3.1><DG1.3.1>E11.65</DG1.3.1><DG1.3.1>Z79.899</DG1.3.1 ><DG Platelets 278 10^3/uL 150-450 [facility] ([facility]) .~.~<DG1.3.1>Z01.812</DG1.3.1><DG1.3.1>E11.65</DG1.3.1><DG1.3.1>Z79.899</DG1.3.1 ><DG Is patient fasting? N~.~.~<DG1.3.1>Z01.812</DG1.3.1><DG1.3.1>E11.65</DG1.3.1><DG1.3.1>Z79.899</D .~.~<DG1.3.1> Z01.812</DG1.3.1><DG1.3.1>E11.65</DG1.3.1><DG1.3.1>Z79.899</DG1.3.1><DG .~.~<DG1.3.1>Z01.812</DG1.3.1><DG1.3.1>E11.65</DG1.3.1><DG1.3.1>Z79.899</DG1.3.1 ><DG Lymph 20.9 % 25.0-40.0 Below low normal [facility] ( [facility]) .~.~<DG1.3.1>Z01.812</DG1.3.1><DG1.3.1>E11.65</DG1.3.1><DG1.3.1>Z79.899</DG1.3.1 ><DG Is patient fasting? N~.~.~<DG1.3.1>Z01.812</DG1.3.1><DG1.3.1>E11.65</DG1.3.1><DG1.3.1>Z79.899</D .~.~<DG1.3.1> Z01.812</DG1.3.1><DG1.3.1>E11.65</DG1.3.1><DG1.3.1>Z79.899</DG1.3.1><DG .~.~<DG1.3.1>Z01.812</DG1.3.1><DG1.3.1>E11.65</DG1.3.1><DG1.3.1>Z79.899</DG1.3.1 ><DG Eos 5.2 % 0.0-7.0 [facility] ([facility]) .~.~<DG1.3.1>Z01.812</DG1.3.1><DG1.3.1>E11.65</DG1.3.1><DG1.3.1>Z79.899</DG1.3.1 ><DG Is patient fasting? N~.~.~<DG1.3.1>Z01.812</DG1.3.1><DG1.3.1>E11.65</DG1.3.1><DG1.3.1>Z79.899</D .~.~<DG1.3.1> Z01.812</DG1.3.1><DG1.3.1>E11.65</DG1.3.1><DG1.3.1>Z79.899</DG1.3.1><DG .~.~<DG1.3.1>Z01.812</DG1.3.1><DG1.3.1>E11.65</DG1.3.1><DG1.3.1>Z79.899</DG1.3.1 ><DG [place] 6.2 % 3.0-8.0 [facility] ([facility]) .~.~<DG1.3.1>Z01.812</DG1.3.1><DG1.3.1>E11.65</DG1.3.1><DG1.3.1>Z79.899</DG1.3.1 ><DG Is patient fasting? N~.~.~<DG1.3.1>Z01.812</DG1.3.1><DG1.3.1>E11.65</DG1.3.1><DG1.3.1>Z79.899</D .~.~<DG1.3.1> Z01.812</DG1.3.1><DG1.3.1>E11.65</DG1.3.1><DG1.3.1>Z79.899</DG1.3.1><DG .~.~<DG1.3.1>Z01.812</DG1.3.1><DG1.3.1>E11.65</DG1.3.1><DG1.3.1>Z79.899</DG1.3.1 ><DG %Ig 0.3 % 0.0-0.0 Above high normal [facility] ([facility]) .~.~<DG1.3.1>Z01.812</DG1.3.1><DG1.3.1>E11.65</DG1.3.1><DG1.3.1>Z79.899</DG1.3.1 ><DG Is patient fasting? N~.~.~<DG1.3.1>Z01.812</DG1.3.1><DG1.3.1>E11.65</DG1.3.1><DG1.3.1>Z79.899</D .~.~<DG1.3.1> Z01.812</DG1.3.1><DG1.3.1>E11.65</DG1.3.1><DG1.3.1>Z79.899</DG1.3.1><DG .~.~<DG1.3.1>Z01.812</DG1.3.1><DG1.3.1>E11.65</DG1.3.1><DG1.3.1>Z79.899</DG1.3.1 ><DG %NRBC 0.0 % 0.0-0.0 [facility] ([facility]) .~.~<DG1.3.1>Z01.812</DG1.3.1><DG1.3.1>E11.65</DG1.3.1><DG1.3.1>Z79.899</DG1.3.1 ><DG Is patient fasting? N~.~.~<DG1.3.1>Z01.812</DG1.3.1><DG1.3.1>E11.65</DG1.3.1><DG1.3.1>Z79.899</D .~.~<DG1.3.1> Z01.812</DG1.3.1><DG1.3.1>E11.65</DG1.3.1><DG1.3.1>Z79.899</DG1.3.1><DG .~.~<DG1.3.1>Z01.812</DG1.3.1><DG1.3.1>E11.65</DG1.3.1><DG1.3.1>Z79.899</DG1.3.1 ><DG Baso 0.5 % 0.0-2.5 [facility] ([facility]) .~.~<DG1.3.1>Z01.812</DG1.3.1><DG1.3.1>E11.65</DG1.3.1><DG1.3.1>Z79.899</DG1.3.1 ><DG Is patient fasting? N~.~.~<DG1.3.1>Z01.812</DG1.3.1><DG1.3.1>E11.65</DG1.3.1><DG1.3.1>Z79.899</D .~.~<DG1.3.1> Z01.812</DG1.3.1><DG1.3.1>E11.65</DG1.3.1><DG1.3.1>Z79.899</DG1.3.1><DG .~.~<DG1.3.1>Z01.812</DG1.3.1><DG1.3.1>E11.65</DG1.3.1><DG1.3.1>Z79.899</DG1.3.1 ><DG #Lymph 2.21 10^3/uL 0.60-3.40 [facility] ([facility]) .~.~<DG1.3.1>Z01.812</DG1.3.1><DG1.3.1>E11.65</DG1.3.1><DG1.3.1>Z79.899</DG1.3.1 ><DG Is patient fasting? N~.~.~<DG1.3.1>Z01.812</DG1.3.1><DG1.3.1>E11.65</DG1.3.1><DG1.3.1>Z79.899</D .~.~<DG1.3.1> Z01.812</DG1.3.1><DG1.3.1>E11.65</DG1.3.1><DG1.3.1>Z79.899</DG1.3.1><DG .~.~<DG1.3.1>Z01.812</DG1.3.1><DG1.3.1>E11.65</DG1.3.1><DG1.3.1>Z79.899</DG1.3.1 ><DG #Neut 7.09 10^3/uL 2.00-6.90 Above high normal [facility] ([facility]) .~.~<DG1.3.1>Z01.812</DG1.3.1><DG1.3.1>E11.65</DG1.3.1><DG1.3.1>Z79.899</DG1.3.1 ><DG Is patient fasting? N~.~.~<DG1.3.1>Z01.812</DG1.3.1><DG1.3.1>E11.65</DG1.3.1><DG1.3.1>Z79.899</D .~.~<DG1.3.1> Z01.812</DG1.3.1><DG1.3.1>E11.65</DG1.3.1><DG1.3.1>Z79.899</DG1.3.1><DG .~.~<DG1.3.1>Z01.812</DG1.3.1><DG1.3.1>E11.65</DG1.3.1><DG1.3.1>Z79.899</DG1.3.1 ><DG #[place] 0.66 10^3/uL 0.00-0.90 [facility] .~.~<DG1.3.1>Z01.812</DG1.3.1><DG1.3.1>E11.65</DG1.3.1><DG1.3.1>Z79.899</DG1.3.1 ><DG Is patient fasting? N~.~.~<DG1.3.1>Z01.812</DG1.3.1><DG1.3.1>E11.65</DG1.3.1><DG1.3.1>Z79.899</D .~.~<DG1.3.1> Z01.812</DG1.3.1><DG1.3.1>E11.65</DG1.3.1><DG1.3.1>Z79.899</DG1.3.1><DG .~.~<DG1.3.1>Z01.812</DG1.3.1><DG1.3.1>E11.65</DG1.3.1><DG1.3.1>Z79.899</DG1.3.1 ><DG #Eos 0.55 10^3/uL 0.00-0.70 [facility] ([facility]) .~.~<DG1.3.1>Z01.812</DG1.3.1><DG1.3.1>E11.65</DG1.3.1><DG1.3.1>Z79.899</DG1.3.1 ><DG Is patient fasting? N~.~.~<DG1.3.1>Z01.812</DG1.3.1><DG1.3.1>E11.65</DG1.3.1><DG1.3.1>Z79.899</D .~.~<DG1.3.1> Z01.812</DG1.3.1><DG1.3.1>E11.65</DG1.3.1><DG1.3.1>Z79.899</DG1.3.1><DG .~.~<DG1.3.1>Z01.812</DG1.3.1><DG1.3.1>E11.65</DG1.3.1><DG1.3.1>Z79.899</DG1.3.1 ><DG #Baso 0.05 10^3/uL 0.00-0.20 [facility] ([facility]) .~.~<DG1.3.1>Z01.812</DG1.3.1><DG1.3.1>E11.65</DG1.3.1><DG1.3.1>Z79.899</DG1.3.1 ><DG Is patient fasting? N~.~.~<DG1.3.1>Z01.812</DG1.3.1><DG1.3.1>E11.65</DG1.3.1><DG1.3.1>Z79.899</D .~.~<DG1.3.1> Z01.812</DG1.3.1><DG1.3.1>E11.65</DG1.3.1><DG1.3.1>Z79.899</DG1.3.1><DG .~.~<DG1.3.1>Z01.812</DG1.3.1><DG1.3.1>E11.65</DG1.3.1><DG1.3.1>Z79.899</DG1.3.1 ><DG #NRBC 0.00 10^3/uL 0.00-0.00 [facility]) .~.~<DG1.3.1>Z01.812</DG1.3.1><DG1.3.1>E11.65</DG1.3.1><DG1.3.1>Z79.899</DG1.3.1 ><DG Is patient fasting? N~.~.~<DG1.3.1>Z01.812</DG1.3.1><DG1.3.1>E11.65</DG1.3.1><DG1.3.1>Z79.899</D .~.~<DG1.3.1> Z01.812</DG1.3.1><DG1.3.1>E11.65</DG1.3.1><DG1.3.1>Z79.899</DG1.3.1><DG .~.~<DG1.3.1>Z01.812</DG1.3.1><DG1.3.1>E11.65</DG1.3.1><DG1.3.1>Z79.899</DG1.3.1 ><DG #Ig 0.03 10^3/uL 0.00-0.10 [facility] ([facility]) .~.~<DG1.3.1>Z01.812</DG1.3.1><DG1.3.1>E11.65</DG1.3.1><DG1.3.1>Z79.899</DG1.3.1 ><DG Is patient fasting? N~.~.~<DG1.3.1>Z01.812</DG1.3.1><DG1.3.1>E11.65</DG1.3.1><DG1.3.1>Z79.899</D .~.~<DG1.3.1> Z01.812</DG1.3.1><DG1.3.1>E11.65</DG1.3.1><DG1.3.1>Z79.899</DG1.3.1><DG .~.~<DG1.3.1>Z01.812</DG1.3.1><DG1.3.1>E11.65</DG1.3.1><DG1.3.1>Z79.899</DG1.3.1 ><DG Manual Diff Laboratory test result [facility] ([facility]) .~.~<DG1.3.1>Z01.812</DG1.3.1><DG1.3.1>E11.65</DG1.3.1><DG1.3.1>Z79.899</DG1.3.1 ><DG Is patient fasting? N~.~.~<DG1.3.1>Z01.812</DG1.3.1><DG1.3.1>E11.65</DG1.3.1><DG1.3.1>Z79.899</D .~.~<DG1.3.1> Z01.812</DG1.3.1><DG1.3.1>E11.65</DG1.3.1><DG1.3.1>Z79.899</DG1.3.1><DG .~.~<DG1.3.1>Z01.812</DG1.3.1><DG1.3.1>E11.65</DG1.3.1><DG1.3.1>Z79.899</DG1.3.1 ><DG RBC Morph Laboratory test result [facility] ([facility]) .~.~<DG1.3.1>Z01.812</DG1.3.1><DG1.3.1>E11.65</DG1.3.1><DG1.3.1>Z79.899</DG1.3.1 ><DG Is patient fasting? N~.~.~<DG1.3.1>Z01.812</DG1.3.1><DG1.3.1>E11.65</DG1.3.1><DG1.3.1>Z79.899</D .~.~<DG1.3.1> Z01.812</DG1.3.1><DG1.3.1>E11.65</DG1.3.1><DG1.3.1>Z79.899</DG1.3.1><DG .~.~<DG1.3.1>Z01.812</DG1.3.1><DG1.3.1>E11.65</DG1.3.1><DG1.3.1>Z79.899</DG1.3.1 ><DG ID Date Data Source [id number] 06/10/2019 05:51:00 PM [facility] Name Value Range Interpretation Code Description Data Maria M rce(s) Supporting Document(s) Hemoglobin A1c/Hemoglobin.total in Blood 11.0 % 4.4 - 6.1 H [facility] {A1]{HB] ID Date Data Source [id number] 06/10/2019 05:34:00 PM [facility] Name Value Range Interpretation Code Description Data Maria M rce(s) Supporting Document(s) CBC W/AUTOMATED DIFF [facility] COMPLETE BLOOD COUNT Leukocytes [#/volume] in Blood by Automated count 10.6 10^3/uL 4.2 - 11.0 [facility] Erythrocytes [#/volume] in Blood by Automated count 4.87 10^6/uL 4. 20 - 5.40 [facility] Hemoglobin [Mass/volume] in Blood 14.2 g/dL 12.0 - 16.0 [facility] Hematocrit [Volume Fraction] of Blood by Automated count 43.7 % 3 7.0 - 47.0 [facility] Erythrocyte mean corpuscular volume [Entitic volume] by Auto mated count 89.7 fL 81.0 - 101 [facility] Erythrocyte mean corpuscular hemoglobin [Entitic mass] by Automated count 29.2 pg 27.0 - 34.0 [facility] Erythrocyte mean corpuscular hemoglobin concentration [Mass/volume] by Automated count 32.5 g/dL 31.0 - 36.0 [facility] Erythrocyte distribution width [Ratio] by Automated count 12.2 % 11.5 - 14.5 [facility] Platelets [#/volume] in Blood by Automated count 278 10^3/uL 150 - 45 0 [facility] Platelet mean volume [Entitic volume] in Blood by Automated count 10.7 fL 7.4 - 10.4 H [facility] Neutrophils/100 leukocytes in Blood by Automated count 66.9 % 37. 0 - 80.0 [facility] Lymphocytes/100 leukocytes in Blood by Manual count 20.9 % 25.0 - 40.0 L [facility] Monocytes/100 leukocytes in Blood by Automated count 6.2 % 3.0 - 8.0 [facility] Eosinophils/100 leukocytes in Blood by Automated count 5.2 % 0.0 - 7.0 [facility] Basophils/100 leukocytes in Blood by Automated count 0.5 % 0.0 - 2.5 [facility] %IG 0.3 % 0.0 - 0.0 H [facility] al %NRBC 0.0 % 0.0 - 0.0 [facility] al Neutrophils [#/volume] in Blood by Automated count 7.09 10^3/uL 2.00 - 6.90 H [facility] Lymphocytes [#/volume] in Blood by Automated count 2.21 10^3/uL 0.60 - 3.40 [facility] Monocytes [#/volume] in Blood by Automated count 0.66 10^3/uL 0.00 - 0.90 [facility] Eosinophils [#/volume] in Blood by Automated count 0.55 10^3/uL 0.00 - 0.70 [facility] Basophils [#/volume] in Blood by Automated count 0.05 10^3/uL 0.00 - 0.20 [facility] #IG 0.03 10^3/uL 0.00 - 0.10 [facility] + [facility] #NRBC 0.00 10^3/uL 0.00 - 0.00 [facility] MANUAL DIFF NOT INDICATED [facility] RBC MORPH SEE BELOW [facility] { SICKLE CELL (NORMAL: NONE SEEN ) COMMENT: _NO_PLATELET_CLUMPING_SEEN 06/10/[id number] . . . ____ ID Date Data Source [id number] 06/10/2019 05:26:00 PM EST [facility] Name Value Range Interpretation Code Description Data Maria M rce(s) Supporting Document(s) COMPREHENSIVE METABOLIC PANEL [facility] COMPREHENSIVE METABOLIC PANEL Sodium [Moles/volume] in Serum or Plasma 140 mEq/L 134 - 153 [facility] Potassium [Moles/volume] in Serum or Plasma 4.3 mEq/L 3.6 - 5.0 [facility] Chloride [Moles/volume] in Serum or Plasma 99 mEq/L 98 - 107 [facility] Carbon dioxide, total [Moles/volume] in Serum or Plasma 26 MEQ/L 22 - 30 [facility] Glucose [Mass/volume] in Serum or Plasma 293 MG/DL 65 - 110 H [facility] BUN 16 MG/DL 7 - 21 [facility] Creatinine [Mass/volume] in Serum or Plasma 0.8 MG/DL 0.7 - 1.5 [facility] BUN/CREAT 20 8 - 27 [facility] Protein [Mass/volume] in Serum or Plasma 7.3 G/DL 6.3 - 8.2 [facility] Albumin [Mass/volume] in Serum or Plasma 4.4 G/DL 3.9 - 5.0 [facility] Globulin [Mass/volume] in Serum by calculation 2.9 GM/DL 2.4 - 3.2 [facility] A/G RATIO 1.5 0.8 - 2.0 [facility] Calcium [Mass/volume] in Serum or Plasma 9.7 MG/DL 8.4 - 10.2 [facility] Bilirubin.total [Mass/volume] in Serum or Plasma 0.7 MG/DL 0.2 - 1.3 [facility] Alkaline phosphatase [Enzymatic activity/volume] in Serum or Plasma 52 U/L 38 - 126 [facility] Aspartate aminotransferase [Enzymatic activity/volume] in Serum or Plasma 21 U/L 5 - 40 [facility] Alanine aminotransferase [Enzymatic activity/volume] in Seru m or Plasma 18 U/L 7 - 56 [facility] Anion gap 3 in Serum or Plasma 15.0 mmol/L 8.0 - 16.0 [facility] AGE 68 yrs [facility] NON-AA GFR >60 mL/min [facility] ital AFR AMER GFR >60 [facility] Male GFR In terprentation 20-49 [...] >32 mL/min Normal ID Date Data Source [id number] 06/10/2019 05:11:00 PM EST [facility] Name Value Range Interpretation Code Description Data Maria M rce(s) Supporting Document(s) Prothrombin time (PT) 13.2 SECONDS 11.0 - 15.5 [facility] INR in Platelet poor plasma by Coagulation assay 0.99 0.93 - 1. 23 [facility] aPTT in Blood by Coagulation assay 33.3 SECONDS 24.8 - 36.7 [facility] \\BLDo\\INR INTERPRETATION\\BLDx\\ Therapeutic range for Coumadin and related oral anticoagulants. - International Normalized Ratio (INR): 2.0 - 3.0 for Venous Thrombosis, Pulmonary Embolus, Tissue heart valves, Acute ID Atrial Fibrillation, Valvular heart disease and recurrent [...] Pipe complet ed Never Smoked A Pipe [facility] ([facility]) Vital Signs ID Date Data Source UNK Name Value Range Interpretation Code Description Data Source(s) Body surface area Derived from formula 1.77 m2 1.77 m2 [facility] ([facility]) Body mass index (BMI) [Ratio] 34.4 kg/m2 34.4 k g/m2 [facility] ([facility]) Body height 60 [in_i] 60 [in_i] [facility] ([facility]) 5'0" Body weight 79.834 kg 79.834 kg [facility] ([facility]) Body weight 176.00 [lb_av] 176.00 [lb_av] [facility] ([facility]) Oxygen saturation in Arterial blood by Pulse oximetry 98 % 98 % [facility] ([facility]) Respiratory rate 18 /min 18 /min [facility] ( [facility]) Body temperature 96.6 [degF] 96.6 [degF] [facility] ([facility]) Heart rate 102 /min 102 /min [facility] ([facility]) Diastolic blood pressure 78 mm[Hg] 78 mm[Hg] [facility] ([facility]) Systolic blood pressure 142 mm[Hg] 142 mm[Hg] [facility] ([facility]) Heart rate 96 /min 96 /min [facility] ([facility] Diastolic blood pressure 68 mm[Hg] 68 mm[Hg] [facility] ([facility] Systolic blood pressure 114 mm[Hg] 114 mm[Hg] [facility] ([facility] Body weight 177.38 [lb_av] 177.38 [lb_av] [facility] ([facility] Body temperature 96.8 [degF] 96.8 [degF] [facility] ([facility]) Body surface area Derived from formula 1.77 m2 1.77 m2 [facility] ([facility]) Body mass index (BMI) [Ratio] 34.6 kg/m2 34.6 k g/m2 [facility] ([facility]) Body height 60 [in_i] 60 [in_i] [facility] 5'0" Body weight 80.457 kg 80.457 kg [facility] ([facility]) Body weight 177.38 [lb_av] 177.38 [lb_av] [facility] ([facility]) Oxygen saturation in Arterial blood by Pulse oximetry 96 % 96 % [facility] Respiratory rate 18 /min 18 /min [facility] ( [facility]) Body temperature 97.0 [degF] 97.0 [degF] [facility] ([facility]) Heart rate 96 /min 96 /min [facility] Diastolic blood pressure 68 mm[Hg] 68 mm[Hg] [facility] ([facility]) Systolic blood pressure 114 mm[Hg] 114 mm[Hg] [facility] ([facility]) Body surface area Derived from formula 1.79 m2 1.79 m2 [facility] ([facility]) Body mass index (BMI) [Ratio] 35.4 kg/m2 35.4 k g/m2 [facility] Body height 60 [in_i] 60 [in_i] [facility] ([facility]) 5'0" Body weight 82.158 kg 82.158 kg [facility] ([facility]) Body weight 181.12 [lb_av] 181.12 [lb_av] [facility] ([facility]) Oxygen saturation in Arterial blood by Pulse oximetry 98 % 98 % [facility] ([facility]) Respiratory rate 18 /min 18 /min [facility] ( [facility]) Body temperature 97.2 [degF] 97.2 [degF] [facility] ([facility]) Heart rate 92 /min 92 /min [facility] ([facility]) Diastolic blood pressure 72 mm[Hg] 72 mm[Hg] [facility] ([facility]) Systolic blood pressure 120 mm[Hg] 120 mm[Hg] [facility] ([facility]) Body surface area 1.79 m2 1.79 m2 [facility] ([facility]) Body surface area 1.85 m2 1.85 m2 [facility] ([facility]) Body mass index (BMI) [Ratio] 38.1 kg/m2 38.1 k g/m2 [facility] Body height 60 [in_i] 60 [in_i] [facility] 5'0" Body weight 88.452 kg 88.452 kg [facility] ([facility]) Body weight 195.00 [lb_av] 195.00 [lb_av] [facility] ([facility]) Oxygen saturation in Arterial blood by Pulse oximetry 97 % 97 % [facility] ([facility]) Respiratory rate 18 /min 18 /min [facility] Body temperature 98.7 [degF] 98.7 [degF] [facility] ([facility]) Heart rate 90 /min 90 /min [facility] ([facility]) Diastolic blood pressure 72 mm[Hg] 72 mm[Hg] [facility] ([facility]) Systolic blood pressure 120 mm[Hg] 120 mm[Hg] [facility] ([facility]) Systolic blood pressure 140 mm[Hg] 140 mm[Hg] [facility] ([facility]) Body surface area 1.85 m2 1.85 m2 [facility] ([facility]) Body mass index (BMI) [Ratio] 38.1 kg/m2 38.1 k g/m2 [facility] ([facility]) Body height 60 [in_i] 60 [in_i] [facility] ([facility]) 5'0" Body weight 88.565 kg 88.565 kg [facility] ([facility]) Body weight 195.25 [lb_av] 195.25 [lb_av] [facility] ([facility]) Oxygen saturation in Arterial blood by Pulse oximetry 98 % 98 % [facility] ([facility]) Respiratory rate 16 /min 16 /min [facility] ( [facility]) Body temperature 97.4 [degF] 97.4 [degF] [facility] ([facility]) Heart rate 86 /min 86 /min [facility] ([facility]) Diastolic blood pressure 88 mm[Hg] 88 mm[Hg] [facility] ([facility]) Body weight 190.00 [lb_av] 190.00 [lb_av] [facility] ([facility]) Oxygen saturation in Arterial blood by Pulse oximetry 98 % 98 % [facility] ([facility]) Respiratory rate 16 /min 16 /min [facility] ( [facility]) Body temperature 98.2 [degF] 98.2 [degF] [facility] ([facility]) Heart rate 96 /min 96 /min [facility] ([facility]) Diastolic blood pressure 74 mm[Hg] 74 mm[Hg] [facility] ([facility]) Systolic blood pressure 126 mm[Hg] 126 mm[Hg] [facility] ([facility]) Body surface area 1.83 m2 1.83 m2 [facility] ([facility]) Body mass index (BMI) [Ratio] 37.1 kg/m2 37.1 k g/m2 [facility] ([facility]) Body height 60 [in_i] 60 [in_i] [facility] ([facility]) 5'0" Body weight 86.184 kg 86.184 kg [facility] ([facility]) Body temperature 98.2 [degF] 98.2 [degF] [facility] ([facility] Body surface area 1.83 m2 1.83 m2 [facility] ([facility]) Body mass index (BMI) [Ratio] 37.3 kg/m2 37.3 k g/m2 [facility] ([facility]) Body height 60 [in_i] 60 [in_i] [facility] ([facility]) 5'0" Body weight 86.638 kg 86.638 kg [facility] ([facility]) Body weight 191.00 [lb_av] 191.00 [lb_av] [facility] ([facility]) Oxygen saturation in Arterial blood by Pulse oximetry 98 % 98 % [facility] ([facility]) Respiratory rate 18 /min 18 /min [facility] ( [facility]) Body temperature 98.1 [degF] 98.1 [degF] [facility] ([facility]) Heart rate 94 /min 94 /min [facility] Diastolic blood pressure 70 mm[Hg] 70 mm[Hg] [facility] ([facility]) Systolic blood pressure 128 mm[Hg] 128 mm[Hg] [facility] ([facility])
[2020-07-04] MEDS ORDERED: DEXTROSE 50% 50 ML SYRINGE IV PRN ×2 (18:15→20:45)
[2020-07-04] MEDS ORDERED: GLUCOSE 4GM CHEW TABLET PO PRN ×2 (18:15→20:45)
[2020-07-04] MEDS ORDERED: HumaLOG INSULIN (NovoLOG) PER UNIT SC SCH (18:15)
[2020-07-04] MEDS ORDERED: GLUCAGON INJ 1MG VIAL SC PRN ×2 (18:15→20:45)
--- NOTE | 2020-07-04 18:30 | HPEPDOC ---
Spanish Speaking Nanny Note DATE OF ADMISSION: 07-04-20 DATE OF SERVICE: 07-05-20 TIME OF ADMISSION: Please refer to physician's admission order. SOURCE OF ADMISSION INFORMATION: [facility] record and patient CHIEF COMPLAINT: stroke HISTORY OF PRESENT ILLNESS: 69F with pmh HTN, HLD, DM, neuropathy, DARY not on CPAP, chronic back pain who presented to [facility] ED on 07-01-20 with slurred speech and left sided weakness for which CTH was negative for acute intracranial pathology, however MRI brain did reveal "Acute infarct in the right kg measuring 1.5 x 0.9 cm". 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 REVIEW OF SYSTEMS: The following is a completed review of systems and has been reviewed. Review of systems otherwise unremarkable. PAIN: Patient self reports no pain EYES: No recent vision changes EARS, NOSE, & THROAT: No throat pain, or dysphagia, or rhinorrhea CARDIOVASCULAR: Denies chest pain or palpitations PULMONARY: Denies shortness of breath GASTROINTESTINAL: Denies constipation/diarrhea GENITOURINARY: denies dysuria MUSCULOSKELETAL: left sided weakness NEUROLOGICAL:+left sided paresis HEMATOLOGICAL: denies easy bruising SKIN: intact PSYCHIATRIC: Unremarkable All other review of systems found to be negative. PAST MEDICAL HISTORY: as per HPI PAST SURGICAL HISTORY: hysterectomy, section x2, right foot bunionectomy, right rotator cuff repair ALLERGIES: Please see below. MEDICATIONS: Please see below. SOCIAL HISTORY: no smoking/etoh/illicit drugs DIET: consistent carb/ low Na PHYSICAL EXAMINATION: VITAL SIGNS: Please see below. GENERAL: Pleasant and cooperative. No acute distress. HEENT: PERRL. Extraocular movements intact. Clear conjunctiva, +left sided facial droop CARDIOVASCULAR: Regular rate and rhythm. No murmurs, rubs, or gallops LUNGS: Clear to auscultation bilaterally. No wheezes. No rhonchi ABDOMEN: Soft, nontender, nondistended. Positive bowel sounds. Normal active bowel sounds NEUROLOGICAL: Alert and oriented times three. Cranial nerves II through XII grossly intact. Sensation grossly intact EXTREMITIES: 5/5 RUE, 2/5 LUE, 5/5 strength right lower extremity. 4/5 strength in left lower extremity. SKIN: intact LABORATORY DATA: Please see below. IMAGING: Imaging documentation personally reviewed by record FUNCTIONAL STATUS: Premorbid: Independent with all activities of daily life as well as mobility On Admission: Min assist ambulation, functional transfers, bed mobility, dressing, toileting GOALS: Mod-I ambulation, functional transfers, bed moblity, dressing, toileting, bathing ASSESSMENT:69-year-old F with past medical history of DM/HTN who presents status post stroke PLAN: 1. Rehab- PT/oT advance mobility and ADLs, strengthen/stretch/maintain ROM all 4 limbs- ok to trial E-stim, patient denies hx of seizures or pacemaker, MPO boot to stretch left heel cords, will consider AFO -[employer]ILLANCE INVESTIGATOR for cog and swallow eval 2. 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 CArdiac- hx of htn, c/u BP meds, f/u ECHO results, daily weights, will restart diuretic for suspected CHF -medicine consulted for assistance -hld c/u statin and tricor 4. Resp- incentive spirometry, monitor for infection -monteleukast 5. Endo- hx of DM c/u ISS, will restart glipizide 6.Pain- hx of chronic low back pain with neuropathy- c/u gabapentin, tylenol prn 7. DVT ppx- heparin, teds 8. GI ppx- pepcid 9, dispo- tbd POST ADMISSION PHYSICIAN EVALUATION: Medical and functional status: Description of medical status, medical assessment: As above. Rehabilitation diagnosis and current and prior cold morbid medical conditions as above. Risk of complications and plans to mitigate them as above. Description of functional status current status is as above. Prior status as above. Status compared to preadmission: There are no clinically significant differences between the patient's current status and the information described on the preadmission screening document. Treatment plan anticipated: Treatment plan is as described above. Required disciplines including physical therapy, occupational therapy, others as noted above Intensity of services: 3 hours a day, 6 days a week. Special considerations: There are no specific special or safety considerations that would likely preclude immediate implementation of an intensive rehabilitation program or subsequently influence the plan of care. ATTESTATION: Considering all the information above, it is my best judgment that this patient requires intensive rehabilitation therapy as described above and an inpatient hospital environment due to the complexity of nursing, medical, and rehabilitation needs required by the patient. Furthermore, this patient can reasonably be expected to participate in an benefit from an inpatient rehabilitation stay with an interdisciplinary team approach to the delivery of rehabilitation care under the direction and supervision of rehabilitation physician. PROGNOSIS: good ESTIMATED LENGTH OF STAY:14-18 days. PROJECTED DISCHARGE DESTINATION: Home with family support and any durable medical equipment required to increase functional safety and mobility. TIME SPENT COUNSELING AND COORDINATING INITIAL CARE: Greater than 70 minutes. Vital Signs Vital Sign - Last 24 Hours 07/04/20 16:55 Temp 98.0 Pulse 95 Resp 18 B/P (MAP) 162/86 (111) Pulse Ox 98 O2 Delivery Room Air Laboratory Data Labs 24H Laboratory Tests 2 07/04/20 17:33: Bedside Glucose (Misc Panel) 281H FSBS Laboratory Tests Test 07/04/20 17:33 Range/Units Bedside Glucose (Misc Panel) 281 80-115 MG/DL Home Medications Scheduled Amlodipine Besylate (Amlodipine Besylate) 10 Mg Tab, 10 MG PO DAILY, (Reported) Aspirin (Children's Aspirin) 81 Mg Tab.chew, 81 MG PO DAILY Clopidogrel Bisulfate (Clopidogrel) 75 Mg Tablet, 75 MG PO DAILY Famotidine (Famotidine) 20 Mg Tablet, 20 MG PO BID, (Reported) Fenofibrate Nanocrystallized (Fenofibrate) 145 Mg Tablet, 145 MG PO DAILY, (Reported) Gabapentin (Gabapentin) 300 Mg Capsule, 300 MG PO QHS, (Reported) Insulin Human Lispro (Humalog) 100 Unit/1 Ml Vial, 0 UNITS SC ACHS As per SMC scale Lisinopril (Lisinopril) 20 Mg Tablet, 20 MG PO DAILY Simvastatin (Zocor) 80 Mg Tablet, 80 MG PO QHS, (Reported) Scheduled PRN Montelukast Sodium (Montelukast Sodium) 10 Mg Tablet, 10 MG PO DAILY PRN for ALLERGIES, (Reported) Allergies Coded Allergies: No Known Allergies (Unverified , 06/19/19) A-FIB/CHADSVASC A-FIB History Current/History of A-Fib/PAF?: No Current PO Anticoag Therapy: No JORJE GRANT MD Jul 04, 2020 18:30
[2020-07-04] MEDS: glipiZIDE (GLUCOTROL) 5 MG TAB PO SCH (18:54)
[2020-07-04 20:20] VITALS: BP 155/90
[2020-07-04] MEDS: IPRATROPIUM 0.5MG/ALBUTEROL 2.5MG INH SOL UD 3ML (DUONEB) NEB SCH (20:23)
[2020-07-04] MEDS: FAMOTIDINE 20 MG TAB PO SCH (21:17)
[2020-07-04] MEDS: HEPARIN SOD (PORCINE) 5000UNITS/ML 1ML VIAL/SYRINGE SC SCH (21:17)
[2020-07-04] MEDS: DOCUSATE SODIUM 100MG CAPSULE PO SCH (21:17)
[2020-07-04] MEDS: GABAPENTIN 300 MG CAP PO SCH (21:17)
[2020-07-04] MEDS: SENNA 8.6 MG TAB (SENOKOT) PO SCH (21:17)
[2020-07-04] MEDS: SIMVASTATIN 40 MG TAB PO SCH (21:17)
[2020-07-04] MEDS: REMEDY PHYTOPLEX Z-GUARD PASTE 113GM TUBE (FROM STOREROOM PRODUCT) TOP SCH (21:19)
[2020-07-05 05:59] VITALS: BP 159/88
[2020-07-05] MEDS: HumaLOG INSULIN (NovoLOG) PER UNIT SC SCH ×4 (07:24→20:53)
[2020-07-05] MEDS: MONTELUKAST 10 MG TAB PO SCH (07:24)
[2020-07-05] MEDS: FLUoxetine 10 MG CAP PO SCH (07:24)
[2020-07-05] MEDS: FENOFIBRATE 145 MG TAB (TRICOR) PO SCH (07:24)
[2020-07-05] MEDS: ASPIRIN 81 MG ENTERIC TAB PO SCH (07:25)
[2020-07-05] MEDS: DOCUSATE SODIUM 100MG CAPSULE PO SCH ×2 (07:25→20:52)
[2020-07-05] MEDS: FAMOTIDINE 20 MG TAB PO SCH ×2 (07:25→20:52)
[2020-07-05] MEDS: CLOPIDOGREL 75 MG TAB PO SCH (07:26)
[2020-07-05] MEDS: glipiZIDE (GLUCOTROL) 5 MG TAB PO SCH ×2 (07:26→16:56)
[2020-07-05] MEDS: HEPARIN SOD (PORCINE) 5000UNITS/ML 1ML VIAL/SYRINGE SC SCH ×2 (07:26→20:52)
[2020-07-05] MEDS: POTASSIUM CHLORIDE 10 MEQ SR TABLET PO SCH (07:26)
[2020-07-05] MEDS: REMEDY PHYTOPLEX Z-GUARD PASTE 113GM TUBE (FROM STOREROOM PRODUCT) TOP SCH ×3 (07:27→20:53)
[2020-07-05] MEDS: IPRATROPIUM 0.5MG/ALBUTEROL 2.5MG INH SOL UD 3ML (DUONEB) NEB SCH ×3 (07:40→20:42)
[2020-07-05] MEDS ORDERED: PILL CUTTER 1 EACH XX PRN (08:00)
[2020-07-05 11:41] LABS: BASO % 0.5 % (0.0-1.0); EOS # 0.6 10^3/uL (0.0-0.5); EOS % 6.8 % (0.0-3.0); HEMATOCRIT 39.8 % (36.0-47.0); HEMOGLOBIN 13.4 g/dl (12.0-15.5); LYMPH # 1.8 10^3/uL (1.5-5.0); MEAN CORPUSCULAR HEMOGLOBIN 29.6 pg (27.0-33.0); MEAN CORPUSCULAR HGB CONC 33.7 g/dl (32.0-36.5); MEAN CORPUSCULAR VOLUME 88.1 fl (80.0-96.0); MONO # 0.6 10^3/uL (0.0-0.8); MONO % 6.5 % (2.0-8.0); NEUTROPHILS # 5.5 10^3/uL (1.5-8.5); PLATELET COUNT, AUTOMATED 317 10^3/uL (150-450); RED BLOOD COUNT 4.52 10^6/uL (4.00-5.40); WHITE BLOOD COUNT 8.5 10^3/uL (4.0-10.0)
[2020-07-05 12:13] LABS: ALBUMIN 3.6 GM/DL (3.2-5.2); BILIRUBIN,TOTAL 0.4 MG/DL (0.2-1.0); CALCIUM LEVEL 9.5 MG/DL (8.8-10.2); CREATININE FOR GFR 1.06 MG/DL (0.55-1.30); GLOMERULAR FILTRATION RATE 54.9 (>45); POTASSIUM SERUM 4.3 MEQ/L (3.5-5.1); TOTAL PROTEIN 7.2 GM/DL (6.4-8.2)
[2020-07-05 14:00] VITALS: BP 144/87
--- NOTE | 2020-07-05 19:36 | IPNPDOC ---
Date Seen The patient was seen on 07/05/20. Progress Note SUBJECTIVE: patient was seen and examined at bedside. Doing well. No acute events overnight. Denies any chest pain, shortness of breath, nausea, vomiting, diarrhea. Comfortable. Joint physical therapy. Reports ultimately swelling left eye. Otherwise, no vision changes. No new weakness OBJECTIVE PHYSICAL EXAMINATION: VITAL SIGNS: please see below General: NAD, comfortable, sitting upright in chair HEENT: PERRLA, EOMI, sclerae clear Neck: supple, normal ROM, no JVD Respiratory: lungs CTAB, no wheeze, no rales, no crackles CVS: RRR, normal S1, S2, no murmurs Abdo: soft, no masses, no hepatosplenomegaly, BS+, no rebound tenderness Extremities: no edema, pulses 2+ MSK: no joint deformities, normal ROM Neuro: no focal neuro deficits, moving all 4 extremities, CN2-12 intact. Strength 5/5 in all 4 extremities. No nystagmus. Psych: calm, cooperative, AAO x 3 LABORATORY DATA, IMAGING STUDIES, MICROBIOLOGY: Please see below. DVT prophylaxis ordered?: heparin, SCDs. TEDs. ASSESSMENT AND PLAN: Patient is a 69-year-old female who presented to the emergency room with left-sided weakness and difficulty with speech for 3 days. MRI confirmed acute CVA at R kg 1.5 x 0.9 cm. PROBLEMS: Left sided weakness - likely 2/2 acute CVA at right kg measuring 1.5 x 0.9 cm - Resented the ER with worsening left-sided weakness associated with difficulty with speech - Physical, remains relatively unchanged / patient continues to work with physical therapy - MRI confirmed stroke - ECHO complete; report pending - c/w ASA 81, Plavix 75, Atorvastatin 80 mg - Neurology on consultation; appreciate their input - c/w rehab at [facility] HTN - BP well controlled - s/p Permissive HTN - Stress test completed in [place]; reported negative 12 years ago - Will continue to hold HCTZ - c/w Amlodipine and Lisinopril; will adjust hold parameters DLP - c/w Simvastatin NIDDM2 - A1c 10.0% - c/w ISS Neuropathy - c/w Gabapentin DARY - Not on CPAP Chronic back pain - c/w Tylenol PRN DVT prophylaxis - s/p Heparin - c/w TEDs/Sequentials VS, I&O, 24H, [facility] Vital Signs/I&O Vital Signs Date Time Temp Pulse Resp B/P (MAP) Pulse Ox O2 Delivery O2 Flow Rate FiO2 07/05/20 14:00 97.5 95 18 144/87 (106) 100 Room Air I&O- Last 24 Hours up to 6 AM 07/05/20 06:00 Intake Total 410 ml Balance 410 ml Laboratory Data 24H LABS Laboratory Tests 2 07/04/20 20:15: Bedside Glucose (Misc Panel) 265H 07/05/20 06:20: Bedside Glucose (Misc Panel) 200H 07/05/20 11:19: Immature Granulocyte % (Auto) 0.2, Neutrophils (%) (Auto) 65.0, Lymphocytes (%) (Auto) 21.0L, Monocytes (%) (Auto) 6.5, Eosinophils (%) (Auto) 6.8H, Basophils (%) (Auto) 0.5, Neutrophils # (Auto) 5.5, Lymphocytes # (Auto) 1.8, Monocytes # (Auto) 0.6, Eosinophils # (Auto) 0.6H, Basophils # (Auto) 0.0, Nucleated Red Blood Cells % (auto) 0.0, Anion Gap 8, Glomerular Filtration Rate 54.9, Calcium Level 9.5, Total Bilirubin 0.4, Aspartate Amino Transf (AST/SGOT) 30, Alanine Aminotransferase (ALT/SGPT) 34, Alkaline Phosphatase 45, Total Protein 7.2, Albumin 3.6, Albumin/Globulin Ratio 1.0L 07/05/20 11:38: Bedside Glucose (Misc Panel) 237H 07/05/20 16:48: Bedside Glucose (Misc Panel) 200H CBC/BMP Laboratory Tests 07/05/20 11:19 SHANE RIOS MD Jul 05, 2020 19:36
[2020-07-05] MEDS: GABAPENTIN 300 MG CAP PO SCH (20:52)
[2020-07-05] MEDS: SENNA 8.6 MG TAB (SENOKOT) PO SCH (20:52)
[2020-07-05] MEDS: SIMVASTATIN 40 MG TAB PO SCH (20:52)
[2020-07-05 21:00] VITALS: BP 140/80
[2020-07-06 06:00] VITALS: BP 166/77
[2020-07-06 07:08] LABS: BASO % 0.4 % (0.0-1.0); EOS # 0.6 10^3/uL (0.0-0.5); EOS % 9.1 % (0.0-3.0); HEMATOCRIT 37.9 % (36.0-47.0); HEMOGLOBIN 12.2 g/dl (12.0-15.5); LYMPH # 1.9 10^3/uL (1.5-5.0); LYMPH % 27.6 % (24.0-44.0); MEAN CORPUSCULAR HEMOGLOBIN 28.6 pg (27.0-33.0); MEAN CORPUSCULAR HGB CONC 32.2 g/dl (32.0-36.5); MONO # 0.6 10^3/uL (0.0-0.8); MONO % 8.1 % (2.0-8.0); NEUTROPHILS # 3.7 10^3/uL (1.5-8.5); NEUTROPHILS % 54.5 % (36.0-66.0); PLATELET COUNT, AUTOMATED 295 10^3/uL (150-450); RED BLOOD COUNT 4.26 10^6/uL (4.00-5.40); WHITE BLOOD COUNT 6.8 10^3/uL (4.0-10.0)
[2020-07-06 07:22] LABS: CALCIUM LEVEL 8.8 MG/DL (8.8-10.2); CREATININE FOR GFR 1.04 MG/DL (0.55-1.30); GLOMERULAR FILTRATION RATE 56.1 (>45); POTASSIUM SERUM 3.8 MEQ/L (3.5-5.1)
[2020-07-06] MEDS: glipiZIDE (GLUCOTROL) 5 MG TAB PO SCH ×2 (07:28→17:28)
[2020-07-06] MEDS: HumaLOG INSULIN (NovoLOG) PER UNIT SC SCH ×4 (07:28→20:32)
[2020-07-06] MEDS: FENOFIBRATE 145 MG TAB (TRICOR) PO SCH (07:28)
[2020-07-06] MEDS: MONTELUKAST 10 MG TAB PO SCH (07:29)
[2020-07-06] MEDS: ASPIRIN 81 MG ENTERIC TAB PO SCH (07:29)
[2020-07-06] MEDS: FLUoxetine 10 MG CAP PO SCH (07:29)
[2020-07-06] MEDS: CLOPIDOGREL 75 MG TAB PO SCH (07:29)
[2020-07-06] MEDS: FAMOTIDINE 20 MG TAB PO SCH ×2 (07:29→20:36)
[2020-07-06] MEDS: POTASSIUM CHLORIDE 10 MEQ SR TABLET PO SCH (07:30)
[2020-07-06] MEDS: REMEDY PHYTOPLEX Z-GUARD PASTE 113GM TUBE (FROM STOREROOM PRODUCT) TOP SCH ×3 (07:30→20:37)
[2020-07-06] MEDS: DOCUSATE SODIUM 100MG CAPSULE PO SCH ×2 (07:30→20:32)
[2020-07-06] MEDS: HEPARIN SOD (PORCINE) 5000UNITS/ML 1ML VIAL/SYRINGE SC SCH ×2 (07:30→20:36)
[2020-07-06] MEDS: IPRATROPIUM 0.5MG/ALBUTEROL 2.5MG INH SOL UD 3ML (DUONEB) NEB SCH ×3 (07:49→20:48)
--- NOTE | 2020-07-06 12:30 | IPNPDOC ---
PM&R Progress Note DATE OF SERVICE: Jul 06, 2020 Manager Web Application Progress Note Subjective: Patient reporting worsening tingling sensation in her left leg. REVIEW OF SYSTEMS: The following is a completed review of systems and has been reviewed. Review of systems otherwise unremarkable. PAIN: Patient self reports no pain EYES: No recent vision changes EARS, NOSE, & THROAT: No throat pain, or dysphagia, or rhinorrhea CARDIOVASCULAR: Denies chest pain or palpitations PULMONARY: Denies shortness of breath GASTROINTESTINAL: Denies constipation/diarrhea GENITOURINARY: denies dysuria MUSCULOSKELETAL: left sided weakness NEUROLOGICAL:+left sided paresis HEMATOLOGICAL: denies easy bruising SKIN: intact PSYCHIATRIC: Unremarkable All other review of systems found to be negative. PHYSICAL EXAMINATION: VITAL SIGNS: Please see below. GENERAL: Pleasant and cooperative. No acute distress. HEENT: PERRL. Extraocular movements intact. Clear conjunctiva, +left sided facial droop CARDIOVASCULAR: Regular rate and rhythm. No murmurs, rubs, or gallops LUNGS: Clear to auscultation bilaterally. No wheezes. No rhonchi ABDOMEN: Soft, nontender, nondistended. Positive bowel sounds. Normal active bowel sounds NEUROLOGICAL: Alert and oriented times three. Cranial nerves II through XII grossly intact. Sensation grossly intact EXTREMITIES: 5/5 RUE, 2/5 LUE, 5/5 strength right lower extremity. 4/5 strength in left lower extremity. SKIN: intact LABORATORY DATA: Please see below. ASSESSMENT:69-year-old F with past medical history of DM/HTN who presents status post stroke PLAN: 1. Rehab- PT/oT advance mobility and ADLs, strengthen/stretch/maintain ROM all 4 limbs- ok to trial E-stim, patient denies hx of seizures or pacemaker, MPO boot to stretch left heel cords, will consider AFO -SNACK STEWARD for cog and swallow eval 2. 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 CArdiac- hx of htn, c/u BP meds, chronic diastolic CHF, c/u daily weights and lasix -medicine consulted for assistance -hld c/u statin and tricor 4. Resp- incentive spirometry, monitor for infection -monteleukast 5. Endo- hx of DM c/u ISS and glipizide 6.Pain- hx of chronic low back pain with neuropathy- c/u gabapentin will increase dosing for left sided paresthesias, tylenol prn 7. DVT ppx- heparin, teds 8. GI ppx- pepcid 9, dispo- tbd Allergies Coded Allergies: No Known Allergies (Unverified , 06/19/19) Vital Signs Vital Signs Date Time Temp Pulse Resp B/P (MAP) Pulse Ox O2 Delivery O2 Flow Rate FiO2 07/06/20 07:29 166/77 07/06/20 06:00 99.0 83 18 97 Room Air Laboratory Data CBC/BMP Laboratory Tests 07/06/20 06:13 Labs 24H Laboratory Tests 2 07/05/20 16:48: Bedside Glucose (Misc Panel) 200H 07/05/20 19:41: Bedside Glucose (Misc Panel) 200H 07/06/20 05:58: Bedside Glucose (Misc Panel) 221H 07/06/20 06:13: Immature Granulocyte % (Auto) 0.3, Neutrophils (%) (Auto) 54.5, Lymphocytes (%) (Auto) 27.6, Monocytes (%) (Auto) 8.1H, Eosinophils (%) (Auto) 9.1H, Basophils (%) (Auto) 0.4, Neutrophils # (Auto) 3.7, Lymphocytes # (Auto) 1.9, Monocytes # (Auto) 0.6, Eosinophils # (Auto) 0.6H, Basophils # (Auto) 0.0, Nucleated Red Blood Cells % (auto) 0.3H, Anion Gap 6L, Glomerular Filtration Rate 56.1, Calcium Level 8.8 07/06/20 11:49: Bedside Glucose (Misc Panel) 195H Current Medications Current Medications Current Medications Medications (Trade) Dose Ordered Sig/Rosalina Route PRN Reason Start Time Stop Time Status Last Admin Dose Admin Acetaminophen (Tylenol Tab) 650 mg Q4HP PRN PO fever/MILD PAIN (PS 1-4) 07/04/20 18:15 Albuterol/ Ipratropium (Duoneb (Ipr 0.5mg/Alb 2.5mg)) 3 ml RTID NEB 07/04/20 20:00 07/06/20 07:49 Amlodipine Besylate (Norvasc) 5 mg BID PO 07/06/20 21:00 Amlodipine Besylate (Norvasc) 5 mg DAILY PO 07/05/20 09:00 07/06/20 12:13 DC 07/06/20 07:29 Aspirin (Ecotrin) 81 mg DAILY PO 07/05/20 09:00 07/06/20 07:29 Clopidogrel Bisulfate (PLAVix) 75 mg DAILY PO 07/05/20 09:00 07/06/20 07:29 Dextrose (Dextrose 50%) 25 ml ASDIRECTED PRN IV SEE LABEL COMMENTS 07/04/20 18:15 Dextrose (Dextrose 50%) 25 ml ASDIRECTED PRN IV SEE LABEL COMMENTS 07/04/20 20:45 07/04/20 20:46 DC Docusate Sodium (Colace) 100 mg BID PO 07/04/20 21:00 07/06/20 07:30 Famotidine (Pepcid) 20 mg BID PO 07/04/20 21:00 07/06/20 07:29 Fenofibrate (Tricor) 145 mg DAILY PO 07/05/20 09:00 07/06/20 07:28 Fluoxetine HCl (PROzac) 10 mg DAILY PO 07/05/20 09:00 07/06/20 07:29 Furosemide (Lasix) 20 mg DAILY PO 07/06/20 12:15 Gabapentin (Neurontin) 300 mg QHS PO 07/04/20 21:00 07/05/20 20:52 Glipizide (Glucotrol) 5 mg BID@0730,1730 PO 07/04/20 17:30 07/05/20 11:07 DC 07/05/20 07:26 Glipizide (Glucotrol) 10 mg BID@0730,1730 PO 07/05/20 17:30 07/06/20 07:28 Glucagon (Glucagon) 1 mg ASDIRECTED PRN SC SEE LABEL COMMENTS 07/04/20 18:15 Glucagon (Glucagon) 1 mg ASDIRECTED PRN SC SEE LABEL COMMENTS 07/04/20 20:45 07/04/20 20:46 DC Glucose (Glucose) 16 GM ASDIRECTED PRN PO SEE LABEL COMMENTS 07/04/20 18:15 Glucose (Glucose) 16 GM ASDIRECTED PRN PO SEE LABEL COMMENTS 07/04/20 20:45 07/04/20 20:46 DC Heparin Sodium (Porcine) (Heparin) 5,000 units Q12H SC 07/04/20 21:00 07/06/20 07:30 Insulin Human Lispro (HumaLOG INSULIN) SEE PROTOCOL TABLE AC SC 07/05/20 07:30 07/06/20 07:28 Insulin Human Lispro (HumaLOG INSULIN) SEE PROTOCOL TABLE Q6H SC 07/04/20 18:15 07/04/20 20:37 DC 07/04/20 18:54 Insulin Human Lispro (HumaLOG INSULIN) See Protocol Table QHS SC 07/05/20 21:00 Lisinopril (Prinivil) 20 mg DAILY PO 07/05/20 09:00 07/06/20 07:29 Montelukast Sodium (Singulair) 10 mg DAILY PO 07/05/20 09:00 07/06/20 07:29 Potassium Chloride (Micro-K Extencaps) 10 meq DAILY PO 07/05/20 09:00 07/06/20 07:30 Senna (Senokot) 1 tab QHS PO 07/04/20 21:00 07/05/20 20:52 Simvastatin (Zocor) 80 mg QHS PO 07/04/20 21:00 07/05/20 20:52 JORJE GRANT MD Jul 06, 2020 12:30
[2020-07-06] MEDS: FUROSEMIDE 20 MG TAB PO SCH (12:36)
[2020-07-06 14:00] VITALS: BP 129/69
[2020-07-06 20:00] VITALS: BP 130/70
[2020-07-06] MEDS: SENNA 8.6 MG TAB (SENOKOT) PO SCH (20:32)
[2020-07-06] MEDS: GABAPENTIN 300 MG CAP PO SCH (20:33)
[2020-07-06] MEDS: SIMVASTATIN 40 MG TAB PO SCH (20:36)
[2020-07-07 05:22] VITALS: BP 138/82
--- NOTE | 2020-07-07 07:30 | IPNPDOC ---
PM&R Progress Note DATE OF SERVICE: Jul 07, 2020 Machine Sand Mixer Progress Note Subjective: Patient seen in OT working on shower transfers, stating the tingling in her leg is better. REVIEW OF SYSTEMS: The following is a completed review of systems and has been reviewed. Review of systems otherwise unremarkable. PAIN: Patient self reports no pain EYES: No recent vision changes EARS, NOSE, & THROAT: No throat pain, or dysphagia, or rhinorrhea CARDIOVASCULAR: Denies chest pain or palpitations PULMONARY: Denies shortness of breath GASTROINTESTINAL: Denies constipation/diarrhea GENITOURINARY: denies dysuria MUSCULOSKELETAL: left sided weakness NEUROLOGICAL:+left sided paresis HEMATOLOGICAL: denies easy bruising SKIN: intact PSYCHIATRIC: Unremarkable All other review of systems found to be negative. PHYSICAL EXAMINATION: VITAL SIGNS: Please see below. GENERAL: Pleasant and cooperative. No acute distress. HEENT: PERRL. Extraocular movements intact. Clear conjunctiva, +left sided facial droop CARDIOVASCULAR: Regular rate and rhythm. No murmurs, rubs, or gallops LUNGS: Clear to auscultation bilaterally. No wheezes. No rhonchi ABDOMEN: Soft, nontender, nondistended. Positive bowel sounds. Normal active bowel sounds NEUROLOGICAL: Alert and oriented times three. Cranial nerves II through XII grossly intact. Sensation grossly intact EXTREMITIES: 5/5 RUE, 2/5 LUE, 5/5 strength right lower extremity. 4/5 strength in left lower extremity. LLE Edema (-) Sade's SKIN: intact LABORATORY DATA: Please see below. ASSESSMENT:69-year-old F with past medical history of DM/HTN who presents status post stroke PLAN: 1. Rehab- PT/oT advance mobility and ADLs, strengthen/stretch/maintain ROM all 4 limbs- ok to trial E-stim, patient denies hx of seizures or pacemaker, MPO boot to stretch left heel cords, will consider AFO -IMPORT EXPORT COORDINATOR for cog and swallow eval 2. 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 CArdiac- hx of htn, c/u BP meds, chronic diastolic CHF, c/u daily weights and lasix -medicine consulted for assistance -hld c/u statin and tricor 4. Resp- incentive spirometry, monitor for infection -monteleukast 5. Endo- hx of DM c/u ISS and glipizide 6.Pain- hx of chronic low back pain with neuropathy- c/u gabapentin 300mg TID, paresthesias improving , tylenol prn 7. DVT ppx- heparin, teds -will order dopplers for LLE swelling to r/o DVT 8. GI ppx- pepcid 9, dispo- tbd Allergies Coded Allergies: No Known Allergies (Unverified , 06/19/19) Vital Signs Vital Signs Date Time Temp Pulse Resp B/P (MAP) Pulse Ox O2 Delivery O2 Flow Rate FiO2 07/07/20 05:22 98.0 88 18 138/82 (100) 95 Room Air Laboratory Data Labs 24H Laboratory Tests 2 07/06/20 11:49: Bedside Glucose (Misc Panel) 195H 07/06/20 16:21: Bedside Glucose (Misc Panel) 296H 07/06/20 19:42: Bedside Glucose (Misc Panel) 279H 07/07/20 04:53: Bedside Glucose (Misc Panel) 199H Current Medications Current Medications Current Medications Medications (Trade) Dose Ordered Sig/Rosalina Route PRN Reason Start Time Stop Time Status Last Admin Dose Admin Acetaminophen (Tylenol Tab) 650 mg Q4HP PRN PO fever/MILD PAIN (PS 1-4) 07/04/20 18:15 Albuterol/ Ipratropium (Duoneb (Ipr 0.5mg/Alb 2.5mg)) 3 ml RTID NEB 07/04/20 20:00 07/06/20 20:48 Amlodipine Besylate (Norvasc) 5 mg BID PO 07/06/20 21:00 07/06/20 20:33 Amlodipine Besylate (Norvasc) 5 mg DAILY PO 07/05/20 09:00 07/06/20 12:13 DC 07/06/20 07:29 Aspirin (Ecotrin) 81 mg DAILY PO 07/05/20 09:00 07/06/20 07:29 Clopidogrel Bisulfate (PLAVix) 75 mg DAILY PO 07/05/20 09:00 07/06/20 07:29 Dextrose (Dextrose 50%) 25 ml ASDIRECTED PRN IV SEE LABEL COMMENTS 07/04/20 18:15 Dextrose (Dextrose 50%) 25 ml ASDIRECTED PRN IV SEE LABEL COMMENTS 07/04/20 20:45 07/04/20 20:46 DC Docusate Sodium (Colace) 100 mg BID PO 07/04/20 21:00 07/06/20 20:32 Famotidine (Pepcid) 20 mg BID PO 07/04/20 21:00 07/06/20 20:36 Fenofibrate (Tricor) 145 mg DAILY PO 07/05/20 09:00 07/06/20 07:28 Fluoxetine HCl (PROzac) 10 mg DAILY PO 07/05/20 09:00 07/06/20 07:29 Furosemide (Lasix) 20 mg DAILY PO 07/06/20 12:15 07/06/20 12:36 Gabapentin (Neurontin) 300 mg QHS PO 07/04/20 21:00 07/07/20 07:03 DC 07/06/20 20:33 Gabapentin (Neurontin) 300 mg TID PO 07/07/20 09:00 Glipizide (Glucotrol) 5 mg BID@0730,1730 PO 07/04/20 17:30 07/05/20 11:07 DC 07/05/20 07:26 Glipizide (Glucotrol) 10 mg BID@0730,1730 PO 07/05/20 17:30 07/06/20 17:28 Glucagon (Glucagon) 1 mg ASDIRECTED PRN SC SEE LABEL COMMENTS 07/04/20 18:15 Glucagon (Glucagon) 1 mg ASDIRECTED PRN SC SEE LABEL COMMENTS 07/04/20 20:45 07/04/20 20:46 DC Glucose (Glucose) 16 GM ASDIRECTED PRN PO SEE LABEL COMMENTS 07/04/20 18:15 Glucose (Glucose) 16 GM ASDIRECTED PRN PO SEE LABEL COMMENTS 07/04/20 20:45 07/04/20 20:46 DC Heparin Sodium (Porcine) (Heparin) 5,000 units Q12H SC 07/04/20 21:00 07/06/20 20:36 Insulin Human Lispro (HumaLOG INSULIN) SEE PROTOCOL TABLE AC SC 07/05/20 07:30 07/06/20 17:29 Insulin Human Lispro (HumaLOG INSULIN) SEE PROTOCOL TABLE Q6H SC 07/04/20 18:15 07/04/20 20:37 DC 07/04/20 18:54 Insulin Human Lispro (HumaLOG INSULIN) See Protocol Table QHS SC 07/05/20 21:00 07/06/20 20:32 Lisinopril (Prinivil) 20 mg DAILY PO 07/05/20 09:00 07/06/20 07:29 Montelukast Sodium (Singulair) 10 mg DAILY PO 07/05/20 09:00 07/06/20 07:29 Potassium Chloride (Micro-K Extencaps) 10 meq DAILY PO 07/05/20 09:00 07/06/20 07:30 Senna (Senokot) 1 tab QHS PO 07/04/20 21:00 07/06/20 20:32 Simvastatin (Zocor) 80 mg QHS PO 07/04/20 21:00 07/06/20 20:36 JORJE GRANT MD Jul 07, 2020 07:30
[2020-07-07] MEDS: IPRATROPIUM 0.5MG/ALBUTEROL 2.5MG INH SOL UD 3ML (DUONEB) NEB SCH ×3 (07:45→20:17)
[2020-07-07] MEDS: MONTELUKAST 10 MG TAB PO SCH (08:23)
[2020-07-07] MEDS: POTASSIUM CHLORIDE 10 MEQ SR TABLET PO SCH (08:23)
[2020-07-07] MEDS: glipiZIDE (GLUCOTROL) 5 MG TAB PO SCH ×2 (08:23→17:32)
[2020-07-07] MEDS: FUROSEMIDE 20 MG TAB PO SCH (08:24)
[2020-07-07] MEDS: GABAPENTIN 300 MG CAP PO SCH ×3 (08:24→20:40)
[2020-07-07] MEDS: DOCUSATE SODIUM 100MG CAPSULE PO SCH ×2 (08:24→20:40)
[2020-07-07] MEDS: FAMOTIDINE 20 MG TAB PO SCH ×2 (08:24→20:40)
[2020-07-07] MEDS: FENOFIBRATE 145 MG TAB (TRICOR) PO SCH (08:25)
[2020-07-07] MEDS: ASPIRIN 81 MG ENTERIC TAB PO SCH (08:25)
[2020-07-07] MEDS: HumaLOG INSULIN (NovoLOG) PER UNIT SC SCH ×4 (08:25→20:41)
[2020-07-07] MEDS: CLOPIDOGREL 75 MG TAB PO SCH (08:25)
[2020-07-07] MEDS: HEPARIN SOD (PORCINE) 5000UNITS/ML 1ML VIAL/SYRINGE SC SCH ×2 (08:25→20:41)
[2020-07-07] MEDS: FLUoxetine 10 MG CAP PO SCH (08:25)
[2020-07-07] MEDS: REMEDY PHYTOPLEX Z-GUARD PASTE 113GM TUBE (FROM STOREROOM PRODUCT) TOP SCH ×3 (08:26→20:42)
[2020-07-07 14:00] VITALS: BP 134/82
--- NOTE | 2020-07-07 18:55 | REP ---
INDICATION: immobility. COMPARISON: Comparison study 30 June 2020.. TECHNIQUE: Bilateral lower extremity venous ultrasound. Doppler interrogation. FINDINGS: The deep veins are anechoic and fully compressible from the groin to the popliteal fossa in the left and right lower extremity. Color flow imaging is homogeneous. Spectral Doppler interrogation demonstrates intact respiratory variation in flow and normal manual augmentation of flow. There is no evidence of deep vein thrombosis. IMPRESSION: Negative bilateral lower extremity duplex venous ultrasound. No evidence of deep vein thrombosis. <Electronically signed by Kuldeep Rios > 07/07/20 [id number]
[2020-07-07 20:00] VITALS: BP 170/90
[2020-07-07] MEDS: SIMVASTATIN 40 MG TAB PO SCH (20:40)
[2020-07-07] MEDS: SENNA 8.6 MG TAB (SENOKOT) PO SCH (20:42)
[2020-07-07] MEDS: ACETAMINOPHEN TAB 650MG DOSE (2X325MG) PO PRN (20:44)
[2020-07-08 05:30] VITALS: BP 154/74
[2020-07-08] MEDS: IPRATROPIUM 0.5MG/ALBUTEROL 2.5MG INH SOL UD 3ML (DUONEB) NEB SCH ×3 (07:59→19:44)
[2020-07-08] MEDS: POTASSIUM CHLORIDE 10 MEQ SR TABLET PO SCH (08:15)
[2020-07-08] MEDS: HumaLOG INSULIN (NovoLOG) PER UNIT SC SCH ×4 (08:15→21:00)
[2020-07-08] MEDS: DOCUSATE SODIUM 100MG CAPSULE PO SCH ×2 (08:16→21:13)
[2020-07-08] MEDS: FLUoxetine 10 MG CAP PO SCH (08:16)
[2020-07-08] MEDS: FAMOTIDINE 20 MG TAB PO SCH ×2 (08:16→21:15)
[2020-07-08] MEDS: GABAPENTIN 300 MG CAP PO SCH ×3 (08:16→21:13)
[2020-07-08] MEDS: FENOFIBRATE 145 MG TAB (TRICOR) PO SCH (08:16)
[2020-07-08] MEDS: FUROSEMIDE 20 MG TAB PO SCH (08:16)
[2020-07-08] MEDS: ASPIRIN 81 MG ENTERIC TAB PO SCH (08:16)
[2020-07-08] MEDS: glipiZIDE (GLUCOTROL) 5 MG TAB PO SCH ×2 (08:16→17:08)
[2020-07-08] MEDS: MONTELUKAST 10 MG TAB PO SCH (08:16)
[2020-07-08] MEDS: HEPARIN SOD (PORCINE) 5000UNITS/ML 1ML VIAL/SYRINGE SC SCH ×2 (08:17→21:15)
[2020-07-08] MEDS: CLOPIDOGREL 75 MG TAB PO SCH (08:17)
[2020-07-08] MEDS: REMEDY PHYTOPLEX Z-GUARD PASTE 113GM TUBE (FROM STOREROOM PRODUCT) TOP SCH ×3 (08:18→21:16)
[2020-07-08 11:19] LABS: BASO % 0.3 % (0.0-1.0); EOS # 0.7 10^3/uL (0.0-0.5); EOS % 7.7 % (0.0-3.0); HEMATOCRIT 40.3 % (36.0-47.0); LYMPH # 1.9 10^3/uL (1.5-5.0); LYMPH % 20.9 % (24.0-44.0); MEAN CORPUSCULAR HGB CONC 32.3 g/dl (32.0-36.5); MEAN CORPUSCULAR VOLUME 89.8 fl (80.0-96.0); MONO # 0.6 10^3/uL (0.0-0.8); MONO % 6.9 % (2.0-8.0); NEUTROPHILS # 5.7 10^3/uL (1.5-8.5); NEUTROPHILS % 63.9 % (36.0-66.0); PLATELET COUNT, AUTOMATED 323 10^3/uL (150-450); RED BLOOD COUNT 4.49 10^6/uL (4.00-5.40)
[2020-07-08 11:47] LABS: CALCIUM LEVEL 9.6 MG/DL (8.8-10.2); CREATININE FOR GFR 1.09 MG/DL (0.55-1.30); GLOMERULAR FILTRATION RATE 53.1 (>45); POTASSIUM SERUM 4.3 MEQ/L (3.5-5.1)
--- NOTE | 2020-07-08 12:02 | IPNPDOC ---
PM&R Progress Note DATE OF SERVICE: Jul 08, 2020 Transportation Security Screener Progress Note Subjective: Patient reporting her left leg feels more swollen despite starting diuretic, but denies pain. REVIEW OF SYSTEMS: The following is a completed review of systems and has been reviewed. Review of systems otherwise unremarkable. PAIN: Patient self reports no pain EYES: No recent vision changes EARS, NOSE, & THROAT: No throat pain, or dysphagia, or rhinorrhea CARDIOVASCULAR: Denies chest pain or palpitations PULMONARY: Denies shortness of breath GASTROINTESTINAL: Denies constipation/diarrhea GENITOURINARY: denies dysuria MUSCULOSKELETAL: left sided weakness NEUROLOGICAL:+left sided paresis HEMATOLOGICAL: denies easy bruising SKIN: intact PSYCHIATRIC: Unremarkable All other review of systems found to be negative. PHYSICAL EXAMINATION: VITAL SIGNS: Please see below. GENERAL: Pleasant and cooperative. No acute distress. HEENT: PERRL. Extraocular movements intact. Clear conjunctiva, +left sided facial droop CARDIOVASCULAR: Regular rate and rhythm. No murmurs, rubs, or gallops LUNGS: Clear to auscultation bilaterally. No wheezes. No rhonchi ABDOMEN: Soft, nontender, nondistended. Positive bowel sounds. Normal active bowel sounds NEUROLOGICAL: Alert and oriented times three. Cranial nerves II through XII grossly intact. Sensation grossly intact EXTREMITIES: 5/5 RUE, 2/5 LUE, 5/5 strength right lower extremity. 4/5 strength in left lower extremity. LLE Edema (-) Sade's SKIN: intact LABORATORY DATA: Please see below. ASSESSMENT:69-year-old F with past medical history of DM/HTN who presents status post stroke PLAN: 1. Rehab- PT/oT advance mobility and ADLs, strengthen/stretch/maintain ROM all 4 limbs- ok to trial E-stim, patient denies hx of seizures or pacemaker, MPO boot to stretch left heel cords, will consider AFO, ambulating well with RW -SPORTS ATHLETIC TRAINER for cog and swallow eval 2. 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 CArdiac- hx of htn, c/u BP meds, chronic diastolic CHF, c/u daily weights and will increase lasix to 40mg daily for LLE swelling -medicine consulted for assistance -hld c/u statin and tricor 4. Resp- incentive spirometry, monitor for infection -monteleukast 5. Endo- hx of DM c/u ISS and glipizide 6.Pain- hx of chronic low back pain with neuropathy- c/u gabapentin 300mg TID, paresthesias improving , tylenol prn 7. DVT ppx- heparin, teds -dopplers negative for LLE DVT 8. GI ppx- pepcid 9, dispo- tbd Allergies Coded Allergies: No Known Allergies (Unverified , 06/19/19) Vital Signs Vital Signs Date Time Temp Pulse Resp B/P (MAP) Pulse Ox O2 Delivery O2 Flow Rate FiO2 07/08/20 08:17 80 154/74 07/08/20 05:30 97.3 19 97 Room Air Laboratory Data CBC/BMP Laboratory Tests 07/08/20 11:05 Labs 24H Laboratory Tests 2 07/07/20 16:32: Bedside Glucose (Misc Panel) 171H 07/07/20 19:24: Bedside Glucose (Misc Panel) 308H 07/08/20 04:44: Bedside Glucose (Misc Panel) 166H 07/08/20 11:05: Immature Granulocyte % (Auto) 0.3, Neutrophils (%) (Auto) 63.9, Lymphocytes (%) (Auto) 20.9L, Monocytes (%) (Auto) 6.9, Eosinophils (%) (Auto) 7.7H, Basophils (%) (Auto) 0.3, Neutrophils # (Auto) 5.7, Lymphocytes # (Auto) 1.9, Monocytes # (Auto) 0.6, Eosinophils # (Auto) 0.7H, Basophils # (Auto) 0.0, Nucleated Red Blood Cells % (auto) 0.0, Anion Gap 7L, Glomerular Filtration Rate 53.1, Calcium Level 9.6 07/08/20 11:40: Bedside Glucose (Misc Panel) 190H Current Medications Current Medications Current Medications Medications (Trade) Dose Ordered Sig/Rosalina Route PRN Reason Start Time Stop Time Status Last Admin Dose Admin Acetaminophen (Tylenol Tab) 650 mg Q4HP PRN PO fever/MILD PAIN (PS 1-4) 07/04/20 18:15 07/07/20 20:44 Albuterol/ Ipratropium (Duoneb (Ipr 0.5mg/Alb 2.5mg)) 3 ml RTID NEB 2/15/21 20:00 07/08/20 07:59 Amlodipine Besylate (Norvasc) 5 mg BID PO 07/06/20 21:00 07/08/20 08:17 Amlodipine Besylate (Norvasc) 5 mg DAILY PO 07/05/20 09:00 07/06/20 12:13 DC 07/06/20 07:29 Aspirin (Ecotrin) 81 mg DAILY PO 07/05/20 09:00 07/08/20 08:16 Clopidogrel Bisulfate (PLAVix) 75 mg DAILY PO 07/05/20 09:00 07/08/20 08:17 Dextrose (Dextrose 50%) 25 ml ASDIRECTED PRN IV SEE LABEL COMMENTS 07/04/20 18:15 Dextrose (Dextrose 50%) 25 ml ASDIRECTED PRN IV SEE LABEL COMMENTS 07/04/20 20:45 07/04/20 20:46 DC Docusate Sodium (Colace) 100 mg BID PO 07/04/20 21:00 07/08/20 08:16 Famotidine (Pepcid) 20 mg BID PO 07/04/20 21:00 07/08/20 08:16 Fenofibrate (Tricor) 145 mg DAILY PO 07/05/20 09:00 07/08/20 08:16 Fluoxetine HCl (PROzac) 10 mg DAILY PO 07/05/20 09:00 07/08/20 08:16 Furosemide (Lasix) 20 mg DAILY PO 07/06/20 12:15 07/08/20 08:16 Gabapentin (Neurontin) 300 mg QHS PO 07/04/20 21:00 07/07/20 07:03 DC 07/06/20 20:33 Gabapentin (Neurontin) 300 mg TID PO 07/07/20 09:00 07/08/20 08:16 Glipizide (Glucotrol) 5 mg BID@0730,1730 PO 07/04/20 17:30 07/05/20 11:07 DC 07/05/20 07:26 Glipizide (Glucotrol) 10 mg BID@0730,1730 PO 07/05/20 17:30 07/08/20 08:16 Glucagon (Glucagon) 1 mg ASDIRECTED PRN SC SEE LABEL COMMENTS 07/04/20 18:15 Glucagon (Glucagon) 1 mg ASDIRECTED PRN SC SEE LABEL COMMENTS 07/04/20 20:45 07/04/20 20:46 DC Glucose (Glucose) 16 GM ASDIRECTED PRN PO SEE LABEL COMMENTS 07/04/20 18:15 Glucose (Glucose) 16 GM ASDIRECTED PRN PO SEE LABEL COMMENTS 07/04/20 20:45 07/04/20 20:46 DC Heparin Sodium (Porcine) (Heparin) 5,000 units Q12H SC 07/04/20 21:00 07/08/20 08:17 Insulin Human Lispro (HumaLOG INSULIN) SEE PROTOCOL TABLE AC SC 07/05/20 07:30 07/08/20 11:50 Insulin Human Lispro (HumaLOG INSULIN) SEE PROTOCOL TABLE Q6H SC 07/04/20 18:15 07/04/20 20:37 DC 07/04/20 18:54 Insulin Human Lispro (HumaLOG INSULIN) See Protocol Table QHS SC 07/05/20 21:00 07/07/20 20:41 Lisinopril (Prinivil) 20 mg DAILY PO 07/05/20 09:00 07/08/20 08:16 Montelukast Sodium (Singulair) 10 mg DAILY PO 07/05/20 09:00 07/08/20 08:16 Potassium Chloride (Micro-K Extencaps) 10 meq DAILY PO 07/05/20 09:00 07/08/20 08:15 Senna (Senokot) 1 tab QHS PO 07/04/20 21:00 07/07/20 20:42 Simvastatin (Zocor) 80 mg QHS PO 07/04/20 21:00 07/07/20 20:40 JORJE GRANT MD Jul 08, 2020 12:02
[2020-07-08] MEDS: ACETAMINOPHEN TAB 650MG DOSE (2X325MG) PO PRN (13:30)
[2020-07-08 14:00] VITALS: BP 158/75
[2020-07-08 20:00] VITALS: BP 113/60
[2020-07-08] MEDS: SIMVASTATIN 40 MG TAB PO SCH (21:15)
[2020-07-08] MEDS: SENNA 8.6 MG TAB (SENOKOT) PO SCH (21:15)
[2020-07-09 05:10] VITALS: BP 139/74
[2020-07-09] MEDS: IPRATROPIUM 0.5MG/ALBUTEROL 2.5MG INH SOL UD 3ML (DUONEB) NEB SCH ×3 (07:30→19:25)
[2020-07-09] MEDS: glipiZIDE (GLUCOTROL) 5 MG TAB PO SCH ×2 (08:01→17:27)
[2020-07-09] MEDS: HumaLOG INSULIN (NovoLOG) PER UNIT SC SCH ×4 (08:01→21:00)
[2020-07-09] MEDS: FENOFIBRATE 145 MG TAB (TRICOR) PO SCH (08:02)
[2020-07-09] MEDS: DOCUSATE SODIUM 100MG CAPSULE PO SCH ×2 (08:02→21:17)
[2020-07-09] MEDS: POTASSIUM CHLORIDE 10 MEQ SR TABLET PO SCH (08:04)
[2020-07-09] MEDS: FUROSEMIDE 20 MG TAB PO SCH (08:04)
[2020-07-09] MEDS: ASPIRIN 81 MG ENTERIC TAB PO SCH (08:04)
[2020-07-09] MEDS: HEPARIN SOD (PORCINE) 5000UNITS/ML 1ML VIAL/SYRINGE SC SCH ×2 (08:04→21:18)
[2020-07-09] MEDS: FLUoxetine 10 MG CAP PO SCH (08:04)
[2020-07-09] MEDS: GABAPENTIN 300 MG CAP PO SCH ×3 (08:05→21:18)
[2020-07-09] MEDS: FAMOTIDINE 20 MG TAB PO SCH ×2 (08:05→21:17)
[2020-07-09] MEDS: MONTELUKAST 10 MG TAB PO SCH (08:05)
[2020-07-09] MEDS: CLOPIDOGREL 75 MG TAB PO SCH (08:05)
[2020-07-09] MEDS: REMEDY PHYTOPLEX Z-GUARD PASTE 113GM TUBE (FROM STOREROOM PRODUCT) TOP SCH ×3 (08:06→21:21)
[2020-07-09 14:00] VITALS: BP 142/78
[2020-07-09 21:17] VITALS: BP 168/89
[2020-07-09] MEDS: SENNA 8.6 MG TAB (SENOKOT) PO SCH (21:17)
[2020-07-09] MEDS: SIMVASTATIN 40 MG TAB PO SCH (21:18)
[2020-07-10 05:43] VITALS: BP 141/61
[2020-07-10] MEDS: IPRATROPIUM 0.5MG/ALBUTEROL 2.5MG INH SOL UD 3ML (DUONEB) NEB SCH ×3 (07:11→19:32)
[2020-07-10] MEDS: HumaLOG INSULIN (NovoLOG) PER UNIT SC SCH ×4 (08:07→20:28)
[2020-07-10] MEDS: ASPIRIN 81 MG ENTERIC TAB PO SCH (08:08)
[2020-07-10] MEDS: FENOFIBRATE 145 MG TAB (TRICOR) PO SCH (08:08)
[2020-07-10] MEDS: MONTELUKAST 10 MG TAB PO SCH (08:08)
[2020-07-10] MEDS: CLOPIDOGREL 75 MG TAB PO SCH (08:08)
[2020-07-10] MEDS: glipiZIDE (GLUCOTROL) 5 MG TAB PO SCH ×2 (08:08→17:06)
[2020-07-10] MEDS: FAMOTIDINE 20 MG TAB PO SCH ×2 (08:08→20:25)
[2020-07-10] MEDS: DOCUSATE SODIUM 100MG CAPSULE PO SCH ×2 (08:08→20:27)
[2020-07-10] MEDS: POTASSIUM CHLORIDE 10 MEQ SR TABLET PO SCH (08:08)
[2020-07-10] MEDS: FLUoxetine 10 MG CAP PO SCH (08:08)
[2020-07-10] MEDS: GABAPENTIN 300 MG CAP PO SCH ×3 (08:09→20:25)
[2020-07-10] MEDS: FUROSEMIDE 20 MG TAB PO SCH (08:09)
[2020-07-10] MEDS: REMEDY PHYTOPLEX Z-GUARD PASTE 113GM TUBE (FROM STOREROOM PRODUCT) TOP SCH ×3 (08:09→20:27)
[2020-07-10] MEDS: HEPARIN SOD (PORCINE) 5000UNITS/ML 1ML VIAL/SYRINGE SC SCH ×2 (08:09→20:27)
[2020-07-10 14:00] VITALS: BP 144/68
[2020-07-10] MEDS ORDERED: MIRALAX *UNIT DOSE* 17GM PACKET PO PRN (16:30)
--- NOTE | 2020-07-10 19:21 | IPNPDOC ---
Date Seen The patient was seen on 07/10/20. Progress Note SUBJECTIVE: Comfortable in bed, reports constipation, had one hard bowel movement earlier today. No new complaints. PHYSICAL EXAMINATION: VITAL SIGNS: Please see below. GENERAL: No distress HEENT: Normocephalic, atraumatic, moist mucous membranes NECK: Supple CARDIOVASCULAR EXAMINATION: S1, S2 RESPIRATORY EXAMINATION: Diminished in the basis, no wheezing ABDOMINAL EXAMINATION: Soft, nontender, nondistended, positive bowel sounds EXTREMITIES: Range of motion intact SKIN: No rash NEUROLOGICAL EXAMINATION: no focal deficits PSYCHIATRIC EXAMINATION: Calm and cooperative LABORATORY DATA, IMAGING STUDIES, MICROBIOLOGY: Please see below. ASSESSMENT AND PLAN: Patient is a 69-year-old female who presented to the emergency room with left-sided weakness and difficulty with speech for 3 days. MRI confirmed acute CVA at R kg 1.5 x 0.9 cm. PROBLEMS: Acute CVA at right kg measuring 1.5 x 0.9 cm - Symptoms consist of left-sided weakness associated with difficulty with speech - Physical remains relatively unchanged / patient continues to work with physical therapy - MRI confirmed stroke - ECHO complete; no acute pathology - c/w ASA 81, Plavix 75, Atorvastatin 80 mg - c/w rehab at [facility] HTN - c/w Amlodipine and Lisinopril DLP - c/w Simvastatin NIDDM2 - A1c 10.0% Continue home meds - c/w ISS Neuropathy - c/w Gabapentin DVT prophylaxis - Heparin subcutaneous - c/w TEDs/Sequentials VS, I&O, 24H, Fishbone Vital Signs/I&O Vital Signs Date Time Temp Pulse Resp B/P (MAP) Pulse Ox O2 Delivery O2 Flow Rate FiO2 07/10/20 14:00 98.0 71 16 144/68 (93) 99 Room Air I&O- Last 24 Hours up to 6 AM 07/10/20 05:59 Intake Total 1200 ml Output Total 0 ml Balance 1200 ml Laboratory Data 24H LABS Laboratory Tests 2 07/09/20 21:10: Bedside Glucose (Misc Panel) 152H 07/10/20 07:10: Bedside Glucose (Misc Panel) 162H 07/10/20 11:29: Bedside Glucose (Misc Panel) 187H 07/10/20 16:33: Bedside Glucose (Misc Panel) 165H ENMANUEL PATINO MD Jul 10, 2020 19:21
[2020-07-10 20:00] VITALS: BP 165/77
[2020-07-10] MEDS: SENNA 8.6 MG TAB (SENOKOT) PO SCH (20:25)
[2020-07-10] MEDS: SIMVASTATIN 40 MG TAB PO SCH (20:25)
[2020-07-11 05:23] VITALS: BP 160/76
[2020-07-11 07:05] LABS: BASO # 0.1 10^3/uL (0.0-0.2); BASO % 0.6 % (0.0-1.0); EOS # 0.5 10^3/uL (0.0-0.5); EOS % 6.4 % (0.0-3.0); HEMATOCRIT 40.2 % (36.0-47.0); LYMPH # 1.9 10^3/uL (1.5-5.0); LYMPH % 23.2 % (24.0-44.0); MEAN CORPUSCULAR HEMOGLOBIN 29.3 pg (27.0-33.0); MEAN CORPUSCULAR HGB CONC 32.3 g/dl (32.0-36.5); MEAN CORPUSCULAR VOLUME 90.5 fl (80.0-96.0); MONO # 0.5 10^3/uL (0.0-0.8); MONO % 6.7 % (2.0-8.0); NEUTROPHILS # 5.1 10^3/uL (1.5-8.5); NEUTROPHILS % 62.6 % (36.0-66.0); PLATELET COUNT, AUTOMATED 318 10^3/uL (150-450); RED BLOOD COUNT 4.44 10^6/uL (4.00-5.40); WHITE BLOOD COUNT 8.1 10^3/uL (4.0-10.0)
[2020-07-11] MEDS: IPRATROPIUM 0.5MG/ALBUTEROL 2.5MG INH SOL UD 3ML (DUONEB) NEB SCH ×3 (07:07→19:38)
[2020-07-11 07:24] LABS: BLOOD UREA NITROGEN 15 MG/DL (7-18); CARBON DIOXIDE LEVEL 29 MEQ/L (21-32); CHLORIDE LEVEL 106 MEQ/L (98-107); CREATININE FOR GFR 0.98 MG/DL (0.55-1.30); GLOMERULAR FILTRATION RATE > 60.0 (>45); GLUCOSE, FASTING 187 MG/DL (70-100); SODIUM LEVEL 141 MEQ/L (136-145)
[2020-07-11] MEDS: HumaLOG INSULIN (NovoLOG) PER UNIT SC SCH ×4 (09:03→20:45)
[2020-07-11] MEDS: glipiZIDE (GLUCOTROL) 5 MG TAB PO SCH ×2 (09:04→16:45)
[2020-07-11] MEDS: MONTELUKAST 10 MG TAB PO SCH (09:04)
[2020-07-11] MEDS: DOCUSATE SODIUM 100MG CAPSULE PO SCH ×2 (09:04→20:45)
[2020-07-11] MEDS: FLUoxetine 10 MG CAP PO SCH (09:04)
[2020-07-11] MEDS: FAMOTIDINE 20 MG TAB PO SCH ×2 (09:04→20:43)
[2020-07-11] MEDS: FENOFIBRATE 145 MG TAB (TRICOR) PO SCH (09:04)
[2020-07-11] MEDS: ASPIRIN 81 MG ENTERIC TAB PO SCH (09:04)
[2020-07-11] MEDS: HEPARIN SOD (PORCINE) 5000UNITS/ML 1ML VIAL/SYRINGE SC SCH ×2 (09:04→20:44)
[2020-07-11] MEDS: FUROSEMIDE 20 MG TAB PO SCH (09:05)
[2020-07-11] MEDS: POTASSIUM CHLORIDE 10 MEQ SR TABLET PO SCH (09:05)
[2020-07-11] MEDS: GABAPENTIN 300 MG CAP PO SCH ×3 (09:05→20:45)
[2020-07-11] MEDS: CLOPIDOGREL 75 MG TAB PO SCH (09:05)
[2020-07-11] MEDS: REMEDY PHYTOPLEX Z-GUARD PASTE 113GM TUBE (FROM STOREROOM PRODUCT) TOP SCH ×3 (09:12→20:45)
[2020-07-11 14:00] VITALS: BP 164/79
[2020-07-11] MEDS: ACETAMINOPHEN TAB 650MG DOSE (2X325MG) PO PRN ×3 (16:47→20:50)
[2020-07-11 20:00] VITALS: BP 156/90
[2020-07-11] MEDS: SENNA 8.6 MG TAB (SENOKOT) PO SCH (20:44)
[2020-07-11] MEDS: SIMVASTATIN 40 MG TAB PO SCH (20:44)
[2020-07-12 05:19] VITALS: BP 168/81
[2020-07-12] MEDS: IPRATROPIUM 0.5MG/ALBUTEROL 2.5MG INH SOL UD 3ML (DUONEB) NEB SCH ×3 (07:16→22:00)
[2020-07-12] MEDS: HumaLOG INSULIN (NovoLOG) PER UNIT SC SCH ×4 (07:30→21:00)
[2020-07-12] MEDS: glipiZIDE (GLUCOTROL) 5 MG TAB PO SCH ×2 (07:30→17:03)
[2020-07-12] MEDS: REMEDY PHYTOPLEX Z-GUARD PASTE 113GM TUBE (FROM STOREROOM PRODUCT) TOP SCH ×3 (09:00→20:59)
[2020-07-12] MEDS: HEPARIN SOD (PORCINE) 5000UNITS/ML 1ML VIAL/SYRINGE SC SCH ×2 (09:01→20:58)
[2020-07-12] MEDS: CLOPIDOGREL 75 MG TAB PO SCH (09:01)
[2020-07-12] MEDS: FLUoxetine 10 MG CAP PO SCH (09:01)
[2020-07-12] MEDS: DOCUSATE SODIUM 100MG CAPSULE PO SCH ×2 (09:01→20:59)
[2020-07-12] MEDS: FUROSEMIDE 40 MG TAB PO SCH (09:01)
[2020-07-12] MEDS: MONTELUKAST 10 MG TAB PO SCH (09:03)
[2020-07-12] MEDS: GABAPENTIN 300 MG CAP PO SCH ×3 (09:03→20:59)
[2020-07-12] MEDS: ASPIRIN 81 MG ENTERIC TAB PO SCH (09:03)
[2020-07-12] MEDS: FAMOTIDINE 20 MG TAB PO SCH ×2 (09:03→20:58)
[2020-07-12] MEDS: POTASSIUM CHLORIDE 10 MEQ SR TABLET PO SCH (09:04)
[2020-07-12] MEDS: FENOFIBRATE 145 MG TAB (TRICOR) PO SCH (09:05)
--- NOTE | 2020-07-12 10:22 | IPNPDOC ---
PM&R Progress Note DATE OF SERVICE: Jul 12, 2020 Pulpit Operator Progress Note Subjective: Patient reporting she feels ok, she still has not had a bowel movement and was hoping to stay until her projected date of 07-19-20, but it was explained to her and her bedside with use of toxicology supervisor phone that her insurance covers her through but that she is safe for discharge medically and functionally. REVIEW OF SYSTEMS: The following is a completed review of systems and has been reviewed. Review of systems otherwise unremarkable. PAIN: Patient self reports no pain EYES: No recent vision changes EARS, NOSE, & THROAT: No throat pain, or dysphagia, or rhinorrhea CARDIOVASCULAR: Denies chest pain or palpitations PULMONARY: Denies shortness of breath GASTROINTESTINAL: Denies constipation/diarrhea GENITOURINARY: denies dysuria MUSCULOSKELETAL: left sided weakness NEUROLOGICAL:+left sided paresis HEMATOLOGICAL: denies easy bruising SKIN: intact PSYCHIATRIC: Unremarkable All other review of systems found to be negative. PHYSICAL EXAMINATION: VITAL SIGNS: Please see below. GENERAL: Pleasant and cooperative. No acute distress. HEENT: PERRL. Extraocular movements intact. Clear conjunctiva, +left sided facial droop CARDIOVASCULAR: Regular rate and rhythm. No murmurs, rubs, or gallops LUNGS: Clear to auscultation bilaterally. No wheezes. No rhonchi ABDOMEN: Soft, nontender, nondistended. Positive bowel sounds. Normal active bowel sounds NEUROLOGICAL: Alert and oriented times three. Cranial nerves II through XII grossly intact. Sensation grossly intact EXTREMITIES: 5/5 RUE, 2/5 LUE, 5/5 strength right lower extremity. 4/5 strength in left lower extremity. LLE Edema (-) Sade's SKIN: intact LABORATORY DATA: Please see below. ASSESSMENT:69-year-old F with past medical history of DM/HTN who presents status post stroke PLAN: 1. Rehab- PT/oT advance mobility and ADLs, strengthen/stretch/maintain ROM all 4 limbs- ok to trial E-stim, patient denies hx of seizures or pacemaker, MPO boot to stretch left heel cords, will consider AFO, ambulating well with RW -MEDICAL LOGISTICS SPECIALIST for cog and swallow eval 2. 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 CArdiac- hx of htn, c/u BP meds, chronic diastolic CHF, c/u daily weights, lasix for LLE swelling -medicine consulted for assistance -hld c/u statin and tricor 4. Resp- incentive spirometry, monitor for infection -monteleukast 5. Endo- hx of DM c/u ISS and glipizide 6.Pain- hx of chronic low back pain with neuropathy- c/u gabapentin 300mg TID, paresthesias improving , tylenol prn 7. DVT ppx- heparin, teds -dopplers negative for LLE DVT 8. GI ppx- pepcid 9, dispo- 07-15-20 to home, progressing towards goals Allergies Coded Allergies: No Known Allergies (Unverified , 06/19/19) Vital Signs Vital Signs Date Time Temp Pulse Resp B/P (MAP) Pulse Ox O2 Delivery O2 Flow Rate FiO2 07/12/20 09:02 72 152/81 07/12/20 05:19 97.7 17 95 Room Air Laboratory Data Labs 24H Laboratory Tests 2 07/11/20 11:29: Bedside Glucose (Misc Panel) 124H 07/11/20 16:27: Bedside Glucose (Misc Panel) 155H 07/11/20 19:30: Bedside Glucose (Misc Panel) 152H 07/12/20 04:38: Bedside Glucose (Misc Panel) 170H Current Medications Current Medications Current Medications Medications (Trade) Dose Ordered Sig/Rosalina Route PRN Reason Start Time Stop Time Status Last Admin Dose Admin Acetaminophen (Tylenol Tab) 650 mg Q4HP PRN PO fever/MILD PAIN (PS 1-4) 07/04/20 18:15 07/11/20 20:50 Albuterol/ Ipratropium (Duoneb (Ipr 0.5mg/Alb 2.5mg)) 3 ml RTID NEB 07/04/20 20:00 07/12/20 07:16 Amlodipine Besylate (Norvasc) 5 mg BID PO 07/06/20 21:00 07/12/20 09:02 Amlodipine Besylate (Norvasc) 5 mg DAILY PO 07/05/20 09:00 07/06/20 12:13 DC 07/06/20 07:29 Aspirin (Ecotrin) 81 mg DAILY PO 07/05/20 09:00 07/12/20 09:03 Clopidogrel Bisulfate (PLAVix) 75 mg DAILY PO 07/05/20 09:00 07/12/20 09:01 Dextrose (Dextrose 50%) 25 ml ASDIRECTED PRN IV SEE LABEL COMMENTS 07/04/20 18:15 Dextrose (Dextrose 50%) 25 ml ASDIRECTED PRN IV SEE LABEL COMMENTS 07/04/20 20:45 07/04/20 20:46 DC Docusate Sodium (Colace) 100 mg BID PO 07/04/20 21:00 07/12/20 09:01 Famotidine (Pepcid) 20 mg BID PO 07/04/20 21:00 07/12/20 09:03 Fenofibrate (Tricor) 145 mg DAILY PO 07/05/20 09:00 07/12/20 09:05 Fluoxetine HCl (PROzac) 10 mg DAILY PO 07/05/20 09:00 07/12/20 09:01 Furosemide (Lasix) 20 mg DAILY PO 07/06/20 12:15 07/11/20 13:59 DC 07/11/20 09:05 Furosemide (Lasix) 40 mg DAILY PO 07/12/20 09:00 07/12/20 09:01 Gabapentin (Neurontin) 300 mg QHS PO 07/04/20 21:00 07/07/20 07:03 DC 07/06/20 20:33 Gabapentin (Neurontin) 300 mg TID PO 07/07/20 09:00 07/12/20 09:03 Glipizide (Glucotrol) 5 mg BID@0730,1730 PO 07/04/20 17:30 07/05/20 11:07 DC 07/05/20 07:26 Glipizide (Glucotrol) 10 mg BID@0730,1730 PO 07/05/20 17:30 07/12/20 07:30 Glucagon (Glucagon) 1 mg ASDIRECTED PRN SC SEE LABEL COMMENTS 07/04/20 18:15 Glucagon (Glucagon) 1 mg ASDIRECTED PRN SC SEE LABEL COMMENTS 07/04/20 20:45 07/04/20 20:46 DC Glucose (Glucose) 16 GM ASDIRECTED PRN PO SEE LABEL COMMENTS 07/04/20 18:15 Glucose (Glucose) 16 GM ASDIRECTED PRN PO SEE LABEL COMMENTS 07/04/20 20:45 07/04/20 20:46 DC Heparin Sodium (Porcine) (Heparin) 5,000 units Q12H SC 07/04/20 21:00 07/12/20 09:01 Insulin Human Lispro (HumaLOG INSULIN) SEE PROTOCOL TABLE AC SC 07/05/20 07:30 07/12/20 07:30 Insulin Human Lispro (HumaLOG INSULIN) SEE PROTOCOL TABLE Q6H SC 07/04/20 18:15 07/04/20 20:37 DC 07/04/20 18:54 Insulin Human Lispro (HumaLOG INSULIN) See Protocol Table QHS SC 07/05/20 21:00 07/07/20 20:41 Lisinopril (Prinivil) 20 mg BID PO 07/11/20 21:00 07/11/20 13:59 DC Lisinopril (Prinivil) 20 mg DAILY PO 07/05/20 09:00 07/11/20 11:33 DC 07/11/20 09:11 Lisinopril (Prinivil) 20 mg DAILY PO 07/12/20 09:00 07/12/20 09:03 Montelukast Sodium (Singulair) 10 mg DAILY PO 07/05/20 09:00 07/12/20 09:03 Polyethylene Glycol (Miralax) 1 pkt DAILYPRN PRN PO CONSTIPATION 07/10/20 16:30 07/10/20 17:06 Potassium Chloride (Micro-K Extencaps) 10 meq DAILY PO 07/05/20 09:00 07/12/20 09:04 Senna (Senokot) 1 tab QHS PO 07/04/20 21:00 07/11/20 20:44 Simvastatin (Zocor) 80 mg QHS PO 07/04/20 21:00 07/11/20 20:44 JORJE GRANT MD Jul 12, 2020 10:22
[2020-07-12] MEDS: MIRALAX *UNIT DOSE* 17GM PACKET PO SCH (11:23)
[2020-07-12 14:00] VITALS: BP 151/75
[2020-07-12] MEDS ORDERED: BISACODYL 10 MG SUPP PR ONE (20:00)
[2020-07-12] MEDS: SIMVASTATIN 40 MG TAB PO SCH (20:58)
[2020-07-12] MEDS: SENNA 8.6 MG TAB (SENOKOT) PO SCH (20:59)
[2020-07-12 22:00] VITALS: BP 156/77
[2020-07-12] MEDS: ACETAMINOPHEN TAB 650MG DOSE (2X325MG) PO PRN (22:28)
[2020-07-13 06:00] VITALS: BP 147/72
[2020-07-13 06:27] LABS: BASO % 0.5 % (0.0-1.0); EOS # 0.6 10^3/uL (0.0-0.5); EOS % 7.1 % (0.0-3.0); HEMATOCRIT 38.7 % (36.0-47.0); HEMOGLOBIN 12.3 g/dl (12.0-15.5); LYMPH % 24.8 % (24.0-44.0); MEAN CORPUSCULAR HEMOGLOBIN 28.5 pg (27.0-33.0); MEAN CORPUSCULAR HGB CONC 31.8 g/dl (32.0-36.5); MEAN CORPUSCULAR VOLUME 89.8 fl (80.0-96.0); MONO # 0.6 10^3/uL (0.0-0.8); MONO % 6.9 % (2.0-8.0); NEUTROPHILS % 60.5 % (36.0-66.0); PLATELET COUNT, AUTOMATED 318 10^3/uL (150-450); RED BLOOD COUNT 4.31 10^6/uL (4.00-5.40); WHITE BLOOD COUNT 8.2 10^3/uL (4.0-10.0)
[2020-07-13 06:57] LABS: CALCIUM LEVEL 8.6 MG/DL (8.8-10.2); CREATININE FOR GFR 1.09 MG/DL (0.55-1.30); GLOMERULAR FILTRATION RATE 53.1 (>45); POTASSIUM SERUM 3.7 MEQ/L (3.5-5.1)
[2020-07-13] MEDS: IPRATROPIUM 0.5MG/ALBUTEROL 2.5MG INH SOL UD 3ML (DUONEB) NEB SCH ×3 (07:24→19:42)
[2020-07-13] MEDS: MIRALAX *UNIT DOSE* 17GM PACKET PO SCH (08:25)
[2020-07-13] MEDS: HumaLOG INSULIN (NovoLOG) PER UNIT SC SCH ×4 (08:25→20:53)
[2020-07-13] MEDS: GABAPENTIN 300 MG CAP PO SCH ×3 (08:25→20:52)
[2020-07-13] MEDS: HEPARIN SOD (PORCINE) 5000UNITS/ML 1ML VIAL/SYRINGE SC SCH ×2 (08:25→20:53)
[2020-07-13] MEDS: FENOFIBRATE 145 MG TAB (TRICOR) PO SCH (08:25)
[2020-07-13] MEDS: ASPIRIN 81 MG ENTERIC TAB PO SCH (08:25)
[2020-07-13] MEDS: FLUoxetine 10 MG CAP PO SCH (08:26)
[2020-07-13] MEDS: CLOPIDOGREL 75 MG TAB PO SCH (08:26)
[2020-07-13] MEDS: DOCUSATE SODIUM 100MG CAPSULE PO SCH ×2 (08:26→20:52)
[2020-07-13] MEDS: POTASSIUM CHLORIDE 10 MEQ SR TABLET PO SCH (08:26)
[2020-07-13] MEDS: MONTELUKAST 10 MG TAB PO SCH (08:27)
[2020-07-13] MEDS: REMEDY PHYTOPLEX Z-GUARD PASTE 113GM TUBE (FROM STOREROOM PRODUCT) TOP SCH ×3 (08:27→20:53)
[2020-07-13] MEDS: glipiZIDE (GLUCOTROL) 5 MG TAB PO SCH ×2 (08:27→17:32)
[2020-07-13] MEDS: FUROSEMIDE 40 MG TAB PO SCH (08:27)
[2020-07-13] MEDS: FAMOTIDINE 20 MG TAB PO SCH ×2 (08:27→20:52)
[2020-07-13 14:00] VITALS: BP 168/74
[2020-07-13] MEDS: ACETAMINOPHEN TAB 650MG DOSE (2X325MG) PO PRN (16:19)
[2020-07-13 20:30] VITALS: BP 155/88
[2020-07-13] MEDS: SIMVASTATIN 40 MG TAB PO SCH (20:51)
[2020-07-13] MEDS: SENNA 8.6 MG TAB (SENOKOT) PO SCH (20:51)
[2020-07-14 06:42] VITALS: BP 151/85
[2020-07-14] MEDS: IPRATROPIUM 0.5MG/ALBUTEROL 2.5MG INH SOL UD 3ML (DUONEB) NEB SCH ×3 (07:37→20:06)
[2020-07-14] MEDS: DOCUSATE SODIUM 100MG CAPSULE PO SCH ×2 (10:05→20:43)
[2020-07-14] MEDS: POTASSIUM CHLORIDE 10 MEQ SR TABLET PO SCH (10:05)
[2020-07-14] MEDS: FENOFIBRATE 145 MG TAB (TRICOR) PO SCH (10:05)
[2020-07-14] MEDS: GABAPENTIN 300 MG CAP PO SCH ×3 (10:05→20:43)
[2020-07-14] MEDS: glipiZIDE (GLUCOTROL) 5 MG TAB PO SCH ×2 (10:06→17:48)
[2020-07-14] MEDS: MONTELUKAST 10 MG TAB PO SCH (10:06)
[2020-07-14] MEDS: FAMOTIDINE 20 MG TAB PO SCH ×2 (10:06→20:43)
[2020-07-14] MEDS: CLOPIDOGREL 75 MG TAB PO SCH (10:06)
[2020-07-14] MEDS: FUROSEMIDE 40 MG TAB PO SCH (10:06)
[2020-07-14] MEDS: ASPIRIN 81 MG ENTERIC TAB PO SCH (10:06)
[2020-07-14] MEDS: FLUoxetine 10 MG CAP PO SCH (10:07)
[2020-07-14] MEDS: HEPARIN SOD (PORCINE) 5000UNITS/ML 1ML VIAL/SYRINGE SC SCH ×2 (10:08→20:44)
[2020-07-14] MEDS: MIRALAX *UNIT DOSE* 17GM PACKET PO SCH (10:08)
[2020-07-14] MEDS: HumaLOG INSULIN (NovoLOG) PER UNIT SC SCH ×4 (10:09→20:45)
[2020-07-14] MEDS: REMEDY PHYTOPLEX Z-GUARD PASTE 113GM TUBE (FROM STOREROOM PRODUCT) TOP SCH ×3 (12:19→20:45)
[2020-07-14 14:00] VITALS: BP 138/84
[2020-07-14 20:20] VITALS: BP 156/88
[2020-07-14] MEDS: SIMVASTATIN 40 MG TAB PO SCH (20:43)
[2020-07-14] MEDS: SENNA 8.6 MG TAB (SENOKOT) PO SCH (20:43)
[2020-07-15 05:33] VITALS: BP 153/83
[2020-07-15] MEDS: IPRATROPIUM 0.5MG/ALBUTEROL 2.5MG INH SOL UD 3ML (DUONEB) NEB SCH ×2 (07:31→13:20)
[2020-07-15] MEDS: HumaLOG INSULIN (NovoLOG) PER UNIT SC SCH ×2 (08:29→12:00)
[2020-07-15] MEDS: HEPARIN SOD (PORCINE) 5000UNITS/ML 1ML VIAL/SYRINGE SC SCH (08:29)
[2020-07-15] MEDS: MONTELUKAST 10 MG TAB PO SCH (08:29)
[2020-07-15] MEDS: FLUoxetine 10 MG CAP PO SCH (08:29)
[2020-07-15] MEDS: GABAPENTIN 300 MG CAP PO SCH (08:30)
[2020-07-15] MEDS: glipiZIDE (GLUCOTROL) 5 MG TAB PO SCH (08:30)
[2020-07-15] MEDS: DOCUSATE SODIUM 100MG CAPSULE PO SCH (08:30)
[2020-07-15] MEDS: FENOFIBRATE 145 MG TAB (TRICOR) PO SCH (08:30)
[2020-07-15] MEDS: FUROSEMIDE 40 MG TAB PO SCH (08:30)
[2020-07-15] MEDS: FAMOTIDINE 20 MG TAB PO SCH (08:30)
[2020-07-15] MEDS: ASPIRIN 81 MG ENTERIC TAB PO SCH (08:30)
[2020-07-15] MEDS: CLOPIDOGREL 75 MG TAB PO SCH (08:31)
[2020-07-15] MEDS: ACETAMINOPHEN TAB 650MG DOSE (2X325MG) PO PRN (08:31)
[2020-07-15 08:32] VITALS: BP 145/78
[2020-07-15] MEDS: MIRALAX *UNIT DOSE* 17GM PACKET PO SCH (08:32)
[2020-07-15] MEDS: POTASSIUM CHLORIDE 10 MEQ SR TABLET PO SCH (08:33)
[2020-07-15] MEDS: REMEDY PHYTOPLEX Z-GUARD PASTE 113GM TUBE (FROM STOREROOM PRODUCT) TOP SCH (08:37)
[2020-07-15] MEDS ORDERED: MONT10TA10 PO (09:14)
[2020-07-15] MEDS ORDERED: ASPI81TAEC PO (09:14)
[2020-07-15] MEDS ORDERED: KLOR10TA76 PO (09:14)
[2020-07-15] MEDS ORDERED: FLUO10CA16 PO (09:14)
[2020-07-15] MEDS ORDERED: ZOCO80TA PO (09:14)
[2020-07-15] MEDS ORDERED: GLIP10TA PO (09:14)
[2020-07-15] MEDS ORDERED: AMLO1TAB25 PO (09:14)
[2020-07-15] MEDS ORDERED: LISI20TA33 PO (09:14)
[2020-07-15] MEDS ORDERED: GABA-282 PO (09:14)
[2020-07-15] MEDS ORDERED: FENO145T7 PO (09:14)
[2020-07-15] MEDS ORDERED: CLOP75TA2 PO (09:14)
[2020-07-15] MEDS ORDERED: FURO40TA2 PO (09:14)
[2020-07-15] MEDS ORDERED: FAMO20TA PO (09:14)
== END 2020-07-15 14:10 | disposition home health service (06) | DRG 57 ==
LOC: M PM&R 16:51
PROVIDERS: ADMIT Physical Medicine & Rehabilitation; ATTEND Physical Medicine & Rehabilitation
DX: I69.354 Hemiplegia and hemiparesis following cerebral infarction affecting left non-dominant side (principal); I69.328 Other speech and language deficits following cerebral infarction; Z74.09 Other reduced mobility; Z74.1 Need for assistance with personal care; I10 Essential (primary) hypertension; E78.5 Hyperlipidemia, unspecified; E11.40 Type 2 diabetes mellitus with diabetic neuropathy, unspecified; G47.33 Obstructive sleep apnea (adult) (pediatric); M54.5 Low back pain; Z79.02 Long term (current) use of antithrombotics/antiplatelets; Z79.82 Long term (current) use of aspirin; Z79.899 Other long term (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

== ENCOUNTER → 2020-07-27 | Outpatient (CLI) | payer MEDICARE ==
[~2020-07-27] MED LIST changes: +ASPI-569 PO; +FLUO10CA16 PO; +GLIP10TA PO; +KLOR10TA76 PO
--- NOTE | 2020-08-02 02:14 | ECWPNPC ---
PATIENT NAME: CLARA DUNN : 1950 GENDER: FEMALE VISIT DATE: 07/27/2020 DISCHARGE DATE: 07/27/20 1420 VISIT LOCKED DATE TIME: PHYSICIAN: ARIELLA CHAN RESOURCE: ARIELLA CHAN REASON FOR APPOINTMENT 1. BACK PAIN W/LEFT RADICULOPATHY- WITH HER- SPEAKS BROKEN BELGIAN HISTORY OF PRESENT ILLNESS GENERAL: 69 Y/O FEMALE BEING REFERRED BY [facility] CLINICAL SUPPORT TECH,PRIMARY CARE TO EVALUATE LOW BACK PAIN WITH LEFT LEG RADICULAR SYMPTOMS. PATIENT HAS SUFFERED A STROKE AND WAS HOSPITALIZED IN OUR [facility] UP UNTIL 2 WEEKS AGO. CURRENTLY HAVING PHYSICAL THERAPY IN THE HOME. OVERALL PATIENT AND FEEL HER PAIN IS IMPROVING WITH THERAPY. DENIES NIGHTTIME AWAKENINGS DUE TO PAIN. REPORTING NORMAL BOWEL MOVEMENT AND BLADDER FUNCTION. REPORTING WEIGHT IS STABLE. - - -. FALL RISK SCREENING: SCREENING : NO FALLS REPORTED IN THE LAST YEAR , : NO FALLS REPORTED IN THE LAST YEAR. PAIN SCREENING: PATIENT HAS A COMPLAINT OF ACUTE OR CHRONIC PAIN :YES LOCATION OF PAIN:LOW BACK INTENSITY OF PAIN (SCALE OF 1 TO 10):5 WHAT DOES YOUR PAIN FEEL LIKE:INTERMITTENT DURATION:CONTINOUS, CONSTANT, ALL DAY PAIN IS INCREASED BY:ACTIVITIES PAIN IS DECREASED BY:USE OF PAIN MEDICATIONS NURSING NOTE: - - -. PAIN CENTER INTAKE QUESTIONS: DO YOU HAVE A HISTORY OF MRSA? :NO DO YOU TAKE A BLOOD THINNERS? :NO DO YOU HAVE ANY BLEEDING DISORDERS? :NO ANY NEW NUMBNESS OR WEAKNESS IN YOUR LEGS OR ARMS? :YES GOES DOWN THE BACK OF LEFT LEG ANY PACEMAKER,DEFIBRILLATOR, OR DORSAL COLUMN STIMULATOR? :NO DO YOU HAVE ANY RASHES OR OPEN SORES? :NO ARE YOU ALLERGIC TO IV DYE? :NO ARE YOU DIABETIC? :YES ANY NEW PROBLEMS WITH YOUR MEDICATIONS? :NO HAVE YOU RECEIVED A VACCINE IN THE PAST 30 DAYS? :NO DO YOU PLAN TO RECEIVE A VACCINE IN THE NEXT 21 DAYS? :NO DO YOU NEED ANY PRESCRIPTION? :NO DO YOU TAKE ANY IMMUNOSUPPRESSIVE MEDICATIONS? :NO CURRENT MEDICATIONS TAKING PIOGLITAZONE HCL 30 MG TABLET 1 TABLET ORALLY ONCE A DAY TAKING POTASSIUM CHLORIDE ER 20 MEQ TABLET EXTENDED RELEASE 1 TABLET WITH FOOD ORALLY ONCE A DAY TAKING FENOFIBRATE 145 MG TABLET 1 TABLET ORALLY ONCE A DAY TAKING CLOTRIMAZOLE ANTI-FUNGAL 1 % CREAM 1 APPLICATION EXTERNALLY TWICE A DAY TAKING FUROSEMIDE 40 MG TABLET 1 TABLET ORALLY ONCE A DAY TAKING Promuc ULTRA 2 W/DEVICE KIT DIRECTED TAKING BLOOD GLUCOSE TEST - STRIP DIRECTED IN VITRO TAKING LANCETS 1 TAB 3TIMES A DAY BLOOD SUGAR TAKING FAMOTIDINE 20 MG TABLET 1 TABLET AT BEDTIME NEEDED ORALLY TWICE A DAY TAKING METHOCARBAMOL 750 MG TABLET 1 TABLET ORALLY EVERY 4 HRS TAKING SIMVASTATIN 80 MG TABLET 1 TABLET IN THE EVENING ORALLY ONCE A DAY TAKING IBUPROFEN 800 MG TABLET 1 TABLET WITH FOOD OR MILK NEEDED ORALLY ONCE A DAY TAKING LORATADINE 10 MG TABLET 1 TABLET ORALLY ONCE A DAY TAKING MONTELUKAST SODIUM 10 MG TABLET 1 TABLET ORALLY ONCE A DAY TAKING GABAPENTIN 300 MG CAPSULE 1 CAPSULE ORALLY THREE TIMES A DAY TAKING AMLODIPINE BESYLATE 10 MG TABLET 1 TABLET ORALLY ONCE A DAY TAKING LISINOPRIL-HYDROCHLOROTHIAZIDE 20-12.5 MG TABLET 1 TABLET ORALLY ONCE A DAY TAKING ASPIRIN ADULT LOW STRENGTH 81 MG TABLET DELAYED RELEASE 1 TABLET ORALLY ONCE A DAY TAKING GLIPIZIDE 10 MG TABLET 1 TABLET 30 MINUTES BEFORE BREAKFAST ORALLY ONCE A DAY TAKING METFORMIN HCL 1000 MG TABLET 1 TABLET WITH A MEAL ORALLY ONCE A DAY MEDICATION LIST REVIEWED AND RECONCILED WITH THE PATIENT PAST MEDICAL HISTORY INGROWING NAIL DYSTROPHIA UNGUIUM PAIN IN LIMB TYPE 2 DIABETES MELLITUS WITH OTHER DIABETIC 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 SURGICAL HISTORY RIGHT SHOULDER REPAR BIG TOES DISC 2X C-CENCTION FAMILY HISTORY FATHER: ALIVE MOTHER: SON(S): ALIVE DAUGHTER(S): ALIVE 1 SON(S) , 1 DAUGHTER(S) - HEALTHY. SOCIAL HISTORY GENERAL: TOBACCO USE ARE YOU A:NONSMOKER LATEX QUESTIONNAIRE LATEX ALLERGY : HAVE YOU EVER DEVELOPED ANY TYPE OF REACTION AFTER HANDLING LATEX PRODUCTS SUCH RUBBER GLOVES, CONDOMS, DIAPHRAGMS, BALLOONS, SOCKS, OR UNDERWEAR?NO LATEX ALLERGY : HAVE YOU EVER DEVELOPED ANY TYPE OF REACTION DURING OR AFTER DENTAL APPOINTMENT, VAGINAL/RECTAL EXAMINATION, SURGICAL PROCEDURE, OR ANY OTHER EXPOSURE?NO LATEX RISK : HAVE YOU EVER HAD ANY DIFFICULTY BREATHING OR HIVES AFTER EATING OR HANDLING ANY FRUITS, OR VEGETABLES; SUCH KIWI, BANANAS, STONE FRUITS, OR CHESTNUTSNO LATEX RISK : DO YOU HAVE A PREVIOUS PERSONAL HISTORY OF MORE THAN NINE SURGERIES, SPINA BIFIDA, OR REPEATED CATHERIZATIONS? NO LATEX RISK : ARE YOU FREQUENTLY EXPOSED TO LATEX PRODUCTS IN YOUR OCCUPATION?NO DATE ASKED : 07/27/2020 ALCOHOL USE: NO. RECREATIONAL DRUG USE DRUG USE?NO LANGUAGE LANGUAGES SPOKEN:IRISH LEARNING BARRIERS / SPECIAL NEEDS CHANGE FROM LAST VISIT?NO BARRIERS TO LEARNING?NO HEARING IMPAIRED?NO VISION IMPAIRED?YES :CORRECTIVE LENSES COGNITIVELY IMPAIRED?NO READINESS TO LEARN?YES LEARNING PREFERENCES?YES :OTHER (PLEASE COMMENT) NEEDS TO BE WITH HER LEARNING CAPABILITIES PRESENT?YES EMOTIONAL BARRIERS?NO SPECIAL DEVICES?YES :CANE, WALKER CAM SPECIALIST NEEDED?NO MARITAL STATUS: . HOSPITALIZATION/MAJOR DIAGNOSTIC PROCEDURE SEE ABOVE REVIEW OF SYSTEMS CONSTITUTIONAL: ANY RECENT FEVER NO . CHILLS NO . WEIGHT CHANGE OF UNKNOWN REASONS NO . GASTROENTEROLOGY: NEW UNEXPLAINABLE CHANGES IN BOWEL CONTROL NO . CONSTIPATION NO . GENITOURINARY: ANY NEW CHANGE IN BLADDER CONTROL? NO . NEUROLOGY: NEW ONSET DIZZINESS OR NEUROLOGICAL CHANGES NOT MENTIONED NO . NEW NUMBNESS OR PAIN PATTERNS NOT MENTIONED AND PERTINENT TO TODAY'S VISIT NO . CARDIOLOGY: NEW CHEST PRESSURE NO . PATIENT DENIES NO . RESPIRATORY: UNEXPLAINABLE COUGH NO . NEW SHORTNESS OF BREATH NO . VITAL SIGNS WT 178.4 LBS, HT 55 IN, BMI 41.46 INDEX, BP 145/70 MM HG, HR 88 /MIN, RR 18 /MIN, TEMP 97.6 F, OXYGEN SAT % 97%, SAFE IN ENV? (Y/N) YES, NA INITIALS AW [id number] SOTO. EXAMINATION GENERAL EXAMINATION: GENERALNO ACUTE DISTRESS, WELL NOURISHED AND HYDRATED. PSYCHAPPROPRIATE MOOD AND AFFECT . FACE:UNREMARKABLE. NECK:NO LYMPHADENOPATHY, SUPPLE. LUNGS:CLEAR TO AUSCULTATION BILATERALLY, NO WHEEZES, RHONCHI, RALES. HEART:NO MURMURS, REGULAR RATE AND RHYTHM. LUMBAR: MUSCLE STRENGTH TESTING 5/5 BILATERAL LOWER EXTREMITIES. PALPATION: NEGATIVE FOR PAIN OVER L/S SPINE. NEGATIVE FOR PAIN OVER L/S PARSPINALS. ASSESSMENTS SACROILIITIS - M46.1 (PRIMARY) LUMBOSACRAL RADICULOPATHY - M54.17 TREATMENT SACROILIITIS NOTES: CONTINUE PHYSICAL THERAPY. FOLLOW-UP WITH NEUROLOGY POST STROKE. CONTINUE HOME EXERCISE. FOLLOW-UP AT PAIN CLINIC IN 2 MONTHS. PROCEDURE CODES FA211 ESTABILISHED PATIENT [facility] CHARGE DISPOSITION & COMMUNICATION FOLLOW UP 2 MONTHS (REASON: FOLLOW-UP AFTER NEUROLOGY VISIT/POST STROKE/LOW BACK PAIN WITH LEFT LEG RADICULOPATHY) ELECTRONICALLY SIGNED BY CAIN JEONG ON 08/01/2020 AT 03:42 PM EDT DISCLAIMER : THIS IS A VISIT SUMMARY EXTRACTED FROM THE [facility] CHART. IT IS NOT A COPY OF THE [facility] PROGRESS NOTE. MYNOR
== END ==
LOC: M PAIN 13:00
PROVIDERS: ATTEND Nurse Practitioner Family
DX: M46.1 Sacroiliitis, not elsewhere classified (principal); M54.17 Radiculopathy, lumbosacral region; E11.9 Type 2 diabetes mellitus without complications; Z86.73 Personal history of transient ischemic attack (TIA), and cerebral infarction without residual deficits; E66.01 Morbid (severe) obesity due to excess calories; Z68.41 Body mass index [BMI] 40.0-44.9, adult; Z79.82 Long term (current) use of aspirin; Z79.84 Long term (current) use of oral hypoglycemic drugs; Z79.899 Other long term (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

== ENCOUNTER → 2020-08-04 | Outpatient (CLI) | payer MEDICARE ==
--- NOTE | 2020-08-04 17:10 | REP ---
INDICATION: CLAUDICATION. COMPARISON: None. TECHNIQUE: Bilateral lower extremity arterial Doppler ultrasound. FINDINGS: Ankle brachial indices are measured at 0.84 on the right and 0.72 on the left. Calcified calf vessels are noted bilaterally. Severe plaquing is seen bilaterally. Monophasic waveforms are noted at the ankles. Multiple stenoses are seen including right superficial femoral artery, right proximal anterior tibial artery, right proximal posterior tibial artery, left distal superficial femoral artery, left anterior tibial artery, and right proximal posterior tibial artery. The distal posterior tibial artery on the left is occluded with distal reconstitution. Right lower extremity arterial Doppler velocity chart: Right FIRE CONTROL OFFICER PSV 112 cm/S Profundal 103 Proximal SFA 107/215 Mid SFA 160 Distal SFA 164 Popliteal 62/72 Proximal JOYCELYN 17/187 Tibial-peroneal trunk 66/54 Proximal [employer] DRIVER 205 Distal [employer] TANK[employer] DRIVER 106 Distal JOYCELYN 8 Left lower extremity arterial Doppler velocity chart: Left FIRE CONTROL OFFICER PSV 86 cm/S Profundal 80 Proximal SFA 96 Mid SFA 112 Distal SFA 145/282 Popliteal 100/46 Proximal JOYCELYN 114/322 Tibial-peroneal trunk 82/60 Proximal [employer] DRIVER 237 Distal [employer] DRIVER TA occluded/reversed flow 70 cm/S Distal JOYCELYN 61 IMPRESSION: 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 <Electronically signed by Kuldeep Rios > 08/04/20 [id number]
== END ==
LOC: M RAD 12:54
PROVIDERS: ATTEND Physician Assistant
DX: 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 of native arteries of extremities with intermittent claudication, bilateral legs (principal)

== ENCOUNTER 2020-10-13 04:10 | Observation (INO) | payer MEDICARE ==
[~2020-10-13] VITALS: Ht 154.9 cm; Wt 80.9 kg
[2020-10-13 05:08] LABS: BASO # 0.1 10^3/uL (0.0-0.2); BASO % 0.5 % (0.0-1.0); EOS # 0.4 10^3/uL (0.0-0.5); HEMATOCRIT 38.2 % (36.0-47.0); HEMOGLOBIN 12.4 g/dl (12.0-15.5); LYMPH # 1.9 10^3/uL (1.5-5.0); MEAN CORPUSCULAR HEMOGLOBIN 29.7 pg (27.0-33.0); MEAN CORPUSCULAR HGB CONC 32.5 g/dl (32.0-36.5); MEAN CORPUSCULAR VOLUME 91.4 fl (80.0-96.0); MONO # 0.8 10^3/uL (0.0-0.8); MONO % 8.2 % (2.0-8.0); NEUTROPHILS # 6.9 10^3/uL (1.5-8.5); NEUTROPHILS % 67.8 % (36.0-66.0); PLATELET COUNT, AUTOMATED 342 10^3/uL (150-450); RED BLOOD COUNT 4.18 10^6/uL (4.00-5.40); WHITE BLOOD COUNT 10.1 10^3/uL (4.0-10.0)
[2020-10-13] MEDS ORDERED: DEXTROSE 50% 50 ML SYRINGE IV STA (05:44)
[2020-10-13 05:45] LABS: ALBUMIN 3.5 GM/DL (3.2-5.2); ALT/SGPT 21 U/L (12-78); BILIRUBIN,DIRECT < 0.1 MG/DL (0.0-0.2); BILIRUBIN,TOTAL 0.2 MG/DL (0.2-1.0); BLOOD UREA NITROGEN 36 MG/DL (7-18); CALCIUM LEVEL 8.9 MG/DL (8.8-10.2); CARBON DIOXIDE LEVEL 27 MEQ/L (21-32); CHLORIDE LEVEL 105 MEQ/L (98-107); CK-MB VALUE MASS < 1.0 NG/ML (<3.6); CPK CREATINE PHOSPHOKINASE 76 U/L (26-192); CREATININE FOR GFR 1.46 MG/DL (0.55-1.30); FREE T4 1.21 NG/DL (0.76-1.46); GLOMERULAR FILTRATION RATE 37.8 (>45); GLUCOSE, FASTING 39 MG/DL (70-100); MB/CK RELATIVE INDEX 1.32 (< OR =4); POTASSIUM SERUM 3.4 MEQ/L (3.5-5.1); SODIUM LEVEL 139 MEQ/L (136-145); TOTAL PROTEIN 7.5 GM/DL (6.4-8.2); TROPONIN I < 0.02 NG/ML (< 0.10)
[2020-10-13] MEDS ORDERED: POTASSIUM CHLORIDE 10 MEQ SR TABLET PO ONE (05:45)
[2020-10-13] MEDS ORDERED: DEXTROSE 50% 50 ML SYRINGE As Ordered ONE (05:45)
--- NOTE | 2020-10-13 05:53 | ECGEPIP ---
[facility] - ED Test Date: 2020-10-13 Pat Name: CLARA MOSER Department: Room: - Gender: Female Superintendent Stations: HC : 1950 Requested By: JONNIE Dias Order Number: [id number] Reading MD: Larry Castaneda Measurements Intervals [place] Rate: 81 P: 49 MT: 248 QRS: 9 QRSD: 88 T: 70 QT: 388 QTc: 450 Interpretive Statements Sinus rhythm with 1st degree AV block POOR R WAVE PROGRESSION SIMILAR TO 07/01/20 Electronically Signed on 10-13-2020 5:53:45 EDT by Larry Castaneda
--- NOTE | 2020-10-13 06:11 | REPVR ---
PROCEDURE INFORMATION: Exam: XR Chest Exam date and time: 10/13/2020 4:25 AM Age: 70 years old Clinical indication: Other: Dizziness TECHNIQUE: Imaging protocol: XR of the chest. Views: 2 views. COMPARISON: [place] Chest, 1 view 07/01/2020 12:26 PM FINDINGS: Lungs: Unremarkable. No consolidation. Pleural spaces: Unremarkable. No pleural effusion. No pneumothorax. Heart/Mediastinum: Unremarkable. No cardiomegaly. Bones/joints: Unremarkable. IMPRESSION: No acute findings. Electronically signed by: Aj Estrada On 10/13/2020 06:10:31 AM
--- NOTE | 2020-10-13 06:22 | REPVR ---
PROCEDURE INFORMATION: Exam: CT Head Without Contrast Exam date and time: 10/13/2020 5:41 AM Age: 70 years old Clinical indication: Dizziness; Additional info: CVA TECHNIQUE: Imaging protocol: Computed tomography of the head without contrast. Radiation optimization: All CT scans at this facility use at least one of these dose optimization techniques: automated exposure control; mA and/or kV adjustment per patient size (includes targeted exams where dose is matched to clinical indication); or iterative reconstruction. COMPARISON: CT Head without contrast 07/01/2020 11:28 AM FINDINGS: Brain: Normal. No hemorrhage. Unremarkable white matter. No mass effect. Cerebral ventricles: No ventriculomegaly. Paranasal sinuses: Visualized sinuses are unremarkable. No fluid levels. Mastoid air cells: Visualized mastoid air cells are well aerated. Bones/joints: Unremarkable. No acute fracture. Soft tissues: Unremarkable. IMPRESSION: No acute intracranial abnormality. Electronically signed by: Aj Estrada On 10/13/2020 06:21:36 AM
[2020-10-13] MEDS ORDERED: LORazepam 2 MG/ML VIAL IV STA (06:32)
[2020-10-13] MEDS ORDERED: METF10004 PO (07:04)
[2020-10-13] MEDS ORDERED: IBUP1TAB7 PO (07:04)
[2020-10-13] MEDS ORDERED: FURO40TA2 PO (07:04)
[2020-10-13] MEDS ORDERED: GABA-282 PO (07:04)
[2020-10-13] MEDS ORDERED: GLIP10TA6 PO (07:04)
[2020-10-13] MEDS ORDERED: CLOP75TA2 PO (07:04)
[2020-10-13] MEDS ORDERED: LISI20TA35 PO (07:04)
[2020-10-13] MEDS ORDERED: POTA10TA16 PO (07:04)
[2020-10-13] MEDS ORDERED: ASPI-161 PO (07:04)
[2020-10-13] MEDS ORDERED: PIOG1TAB36 PO (07:04)
[2020-10-13] MEDS ORDERED: FAMO20TA PO (07:04)
[2020-10-13] MEDS ORDERED: FENO145T7 PO (07:04)
[2020-10-13] MEDS ORDERED: FLUO10CA16 PO (07:04)
[2020-10-13] MEDS ORDERED: AMLO1TAB22 PO (07:04)
[2020-10-13 07:31] LABS: RSV AMPLIFICATION NEGATIVE (NEGATIVE)
[2020-10-13] MEDS ORDERED: GLUCOSE 4GM CHEW TABLET PO PRN (08:45)
[2020-10-13] MEDS ORDERED: DEXTROSE 50% 50 ML SYRINGE IV PRN (08:45)
[2020-10-13] MEDS ORDERED: GLUCAGON INJ 1MG VIAL SC PRN (08:45)
[2020-10-13] MEDS: FAMOTIDINE 20 MG TAB PO SCH (09:53)
[2020-10-13] MEDS: hydroCHLOROthiazide 12.5 MG CAPSULE PO SCH (09:53)
[2020-10-13] MEDS: GABAPENTIN 300 MG CAP PO SCH ×3 (09:54→21:45)
[2020-10-13] MEDS: ASPIRIN 81MG ENTERIC TABLET PO SCH (10:03)
[2020-10-13] MEDS: MONTELUKAST 10 MG TAB PO SCH (10:03)
[2020-10-13] MEDS: FLUoxetine 10 MG CAP PO SCH (10:03)
[2020-10-13] MEDS: ATORVASTATIN 20 MG TAB PO SCH (10:03)
[2020-10-13] MEDS: HumaLOG INSULIN (NovoLOG) PER UNIT SC SCH ×2 (12:00→16:58)
--- NOTE | 2020-10-13 12:02 | REPVR ---
PROCEDURE INFORMATION: Exam: MRA Head Without Contrast; Arteriography Exam date and time: 10/13/2020 11:10 AM Age: 70 years old Clinical indication: Weakness; Additional info: CVA TECHNIQUE: Imaging protocol: Magnetic resonance angiography head without contrast. Exam focused on the arteries. COMPARISON: MRA BRAIN W/O CONTRAST 07/01/2020 6:50 PM FINDINGS: Image quality is degraded by motion. ANTERIOR CIRCULATION: Right internal carotid artery: Intracranial segment is patent with no significant stenosis. No aneurysm. Right middle cerebral artery: There is severe focal flow-limiting stenosis/occlusion of the proximal superior M2 segment of the right middle cerebral artery, unchanged. Right anterior cerebral artery: No occlusion or significant stenosis. No aneurysm. Left internal carotid artery: Intracranial segment is patent with no significant stenosis. No aneurysm. Left middle cerebral artery: No occlusion or significant stenosis. No aneurysm. Left anterior cerebral artery: No occlusion or significant stenosis. No aneurysm. POSTERIOR CIRCULATION: Right vertebral artery: The right vertebral artery is diffusely diminutive, likely normal anatomic variant. The distal intradural vertebral artery just proximal to the confluence is not visualized, potentially focal flow-limiting stenosis/occlusion. This appears unchanged. Left vertebral artery: No occlusion or significant stenosis. No aneurysm. Basilar artery: No occlusion or significant stenosis. No aneurysm. Right posterior cerebral artery: There is severe focal stenosis of the proximal P2 segment of the right posterior cerebral artery. Left posterior cerebral artery: No occlusion or significant stenosis. No aneurysm. IMPRESSION: 1. Severe focal flow-limiting stenosis/occlusion of the proximal superior M2 segment of the right middle cerebral artery, unchanged. 2. Severe focal flow-limiting stenosis of the proximal M2 segment of the right posterior cerebral artery. 3. Stable severe flow-limiting stenosis of the non dominant distal right intradural vertebral artery. Electronically signed by: Taylor Ayoub On 10/13/2020 12:02:20 PM
--- NOTE | 2020-10-13 12:06 | REPVR ---
PROCEDURE INFORMATION: Exam: MR Head Without Contrast Exam date and time: 10/13/2020 11:10 AM Age: 70 years old Clinical indication: Weakness, extremity; Bilateral; Additional info: CVA TECHNIQUE: Imaging protocol: MR of the head without contrast. COMPARISON: MRI-Brain without Contrast 07/01/2020 6:50 PM FINDINGS: Brain: There is no extra-axial collection or intra-axial mass. Mild diffuse volume loss is within the range of normal for patient age. Focally increased T2/FLAIR white matter hyperintensity is nonspecific but typically reflects small-vessel ischemia in this age group. There is no diffusion restriction. There is continued evolution of previously apparent right pontine infarct. Cerebral ventricles: Normal. No ventriculomegaly. Bones/joints: Unremarkable. Paranasal sinuses: Normal as visualized. No acute sinusitis. Mastoid air cells: There is focal fluid within right mastoid air cells. Orbital cavity: Unremarkable. Soft tissues: Unremarkable. IMPRESSION: No acute findings. Electronically signed by: Taylor Ayoub On 10/13/2020 12:05:29 PM
[2020-10-13 15:02] VITALS: BP 145/75
--- NOTE | 2020-10-13 15:19 | HPEPDOC ---
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 and multifocal stenosis of the right vertebral artery, on ASA and Plavix who presented from home with LLE numbness and unsteady gait since the day before presentation. The daughter reports two days before presentation was very tired after being out shopping with family and she did not think much of it but 1 day before presentation she reported L leg numbness and later had an unsteady gait and the daughter decided to bring her to the ED. The daughter reports that they did not note any recent fever, chills, rigors, AMS, nausea, emesis, complaints of chest pain, abdominal pain, palpitations. In the ED, she was hemodynamically stable, afebrile and breathing comfortably on room air. Workup was notable for hypoglycemia to 30s that improved with D50 amp, CT head that showed no evidence of hemorrhage, mass/mass effect or infarct, while WBC was 10.1, Hgb 12.4, platelets 342, Na 139, K 3.4, Cr 1.46, troponin that was wnl, EKG that showed NSR without ST changes and a CXR that showed no acute cardiopulmonary pathology. She is now being admitted for a presumed TIA to r/o a CVA. Past Medical History: HTN DLP NIDDM2 Neuropathy DARY (not on CPAP) Chronic back pain CVA in 06/2020 Past Surgical History: No back surgeries Right rotator cuff repair 2020 Right foot bunionectomy Hysterectomy section 2 Allergies: See below Medications: See below Family History: - HTN, DM Social History: - Denies the use of alcohol, tobacco or illicit drugs - Denies recent travel or sick contacts Review of Systems: 10 point review of systems complete, all negative otherwise stated in HPI Physical exam: Vitals: see below General: Lying in bed, Speaking in full sentences, AAOx3, NAD HEENT: NCAT, PERRLA, EOMI, MMM CVS: RRR, +S1S2, no noted m/r/g Lungs: CTAB, no wheezing, crackles or rhonchi Abdomen: Normoactive sounds, soft, obese, NTND Extremities: No lower extremity edema, no calf tenderness, WWP Neuro: 5/5 strength in bilateral upper and lower extremities, CN2-12 grossly intact, brisk patella reflexes Skin: No visible rashes Labs and Imaging: as summarized above in the HPI. Otherwise please see below for full details. 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 and multifocal stenosis of the right vertebral artery, on ASA and Plavix who presented from home with LLE numbness and unsteady gait since the day before presentation now being admitted for a presumed TIA to r/o a CVA. Transient L leg numbness, and gait instability: Brenda TIA to r/o CVA -continue ASA 81 and plavix 75 daily -CT head was negative for acute pathology -pending MRI brain and MRA brain -Hemodynamically stable -Was severely hypoglycemic to 30, corrected. -Cardiac risk profile -Will not repeat TTE as she had one in 06/2020 without evidence of shunt physiology -Continue atorvastatin 40 Telemetry HTN -Continue home amlodipine/Lisinopril / HCTZ DLP -c/w lipitor and fenofibrate NIDDM2 -Hold home oral antihyperglycemics especially in the setting of recent significant hypoglycemia -SSI AC/HS -Hypoglycemia protocol -FSBG AC/HS -consistent carb diet, 2g sodium Neuropathy - Will c/w Gabapentin DARY (not on CPAP) Chronic back pain - c/w Tylenol PRN DVT prophylaxis - Will start ppx dosing heparin SC TID Vital Signs Vital Signs Date Time Temp Pulse Resp B/P (MAP) Pulse Ox O2 Delivery O2 Flow Rate FiO2 10/13/20 13:00 94 15 96 Room Air 10/13/20 12:30 166/79 (108) 10/13/20 04:12 98.0 Laboratory Data Labs 24H Laboratory Tests 2 10/13/20 04:59: Immature Granulocyte % (Auto) 0.5, Neutrophils (%) (Auto) 67.8H, Lymphocytes (%) (Auto) 19.0L, Monocytes (%) (Auto) 8.2H, Eosinophils (%) (Auto) 4.0H, Basophils (%) (Auto) 0.5, Neutrophils # (Auto) 6.9, Lymphocytes # (Auto) 1.9, Monocytes # (Auto) 0.8, Eosinophils # (Auto) 0.4, Basophils # (Auto) 0.1, Nucleated Red Blood Cells % (auto) 0.0, Anion Gap 7L, Glomerular Filtration Rate 37.8L, Calcium Level 8.9, Total Bilirubin 0.2, Direct Bilirubin < 0.1, Aspartate Amino Transf (AST/SGOT) 20, Alanine Aminotransferase (ALT/SGPT) 21, Alkaline Phosphatase 36L, Total Creatine Kinase 76, Creatine Kinase MB < 1.0, Creatine Kinase MB Relative Index 1.32, Troponin I < 0.02, Total Protein 7.5, Albumin 3.5, Albumin/Globulin Ratio 0.9L, Thyroid Stimulating Hormone (TSH) 2.300, Free Thyroxine 1.21 10/13/20 06:12: Bedside Glucose (Misc Panel) 141H 10/13/20 06:48: Coronavirus (COVID-19)(PCR) NEGATIVE, Influenza Type A (RT-PCR) NEGATIVE, Influenza Type B (RT-PCR) NEGATIVE, Respiratory Syncytial Virus (PCR) NEGATIVE CBC/BMP Laboratory Tests 10/13/20 04:59 Home Medications Scheduled Amlodipine/Atorvastatin (Amlodipine-Atorvast 10-40 mg) 1 Each Tablet, 1 TAB PO DAILY Aspirin (Aspirin EC) 81 Mg Tablet.dr, 81 MG PO DAILY Clopidogrel Bisulfate (Clopidogrel) 75 Mg Tablet, 75 MG PO QHS Famotidine (Famotidine) 20 Mg Tablet, 20 MG PO BID Fenofibrate Nanocrystallized (Fenofibrate) 145 Mg Tablet, 145 MG PO DAILY Fluoxetine Hcl (Fluoxetine HCl) 10 Mg Capsule, 10 MG PO DAILY Furosemide (Furosemide) 40 Mg Tablet, 40 MG PO QHS Gabapentin (Gabapentin) 300 Mg Capsule, 300 MG PO TID Glipizide (Glipizide) 10 Mg Tablet, 10 MG PO BID Lisinopril/Hydrochlorothiazide (Lisinopril-Hctz 20-12.5 mg Tab) 1 Each Tablet, 1 TAB PO DAILY Metformin HCl (Metformin HCl) 1,000 Mg Tablet, 1,000 MG PO BID Pioglitazone HCl (Pioglitazone HCl) 15 Mg Tablet, 15 MG PO QHS Potassium Chloride (Potassium Chloride) 10 Meq Tab.er.prt, 10 MEQ PO QHS Scheduled PRN Ibuprofen (Ibuprofen) 800 Mg Tablet, 800 MG PO DAILY PRN for PAIN Montelukast Sodium (Montelukast Sodium) 10 Mg Tablet, 10 MG PO DAILY PRN for ALLERGIES Allergies Coded Allergies: No Known Allergies (Unverified , 06/19/19) A-FIB/CHADSVASC A-FIB History Current/History of A-Fib/PAF?: No Current PO Anticoag Therapy: No Age/Risk Factor Scoring CHADSVASC: CHADSVASC Response (Comments) Value Age Risk Factor Age 65-74 years old 1 Gender Risk Factor Female 1 Hx of CHF No 0 Hx of HTN Yes 1 Hx of Stroke/TIA/or VTE Yes 2 Hx of Diabetes Yes 1 Hx of Vascular Disease Yes 1 Total 7 Treatment Treatment ordered: NONE Reason Anticoagulant not given: Not indicated/[id number] YULISSA CANDELARIA MD October 13, 2020 15:19
[2020-10-13] MEDS: FENOFIBRATE 145 MG TAB (TRICOR) PO SCH (15:58)
[2020-10-13] MEDS: HEPARIN SOD (PORCINE) 5000UNITS/ML 1ML VIAL/SYRINGE SC SCH ×2 (15:59→21:46)
[2020-10-13] MEDS ORDERED: FUROSEMIDE 40 MG TAB PO SCH (17:00)
[2020-10-13 18:00] VITALS: BP 143/75
[2020-10-13] MEDS ORDERED: CLOPIDOGREL 75 MG TAB PO SCH (21:00)
[2020-10-13] MEDS ORDERED: HumaLOG INSULIN (NovoLOG) PER UNIT SC SCH (21:00)
[2020-10-13] MEDS ORDERED: POTASSIUM CHLORIDE 10 MEQ SR TABLET PO SCH (21:00)
[2020-10-13] MEDS: ACETAMINOPHEN TAB 650MG DOSE (2X325MG) PO PRN (21:45)
[2020-10-13 22:00] VITALS: BP 137/73
[2020-10-14 02:00] VITALS: BP 129/76
[2020-10-14] MEDS: HEPARIN SOD (PORCINE) 5000UNITS/ML 1ML VIAL/SYRINGE SC SCH (05:23)
[2020-10-14 06:00] VITALS: BP 129/64
[2020-10-14 06:31] LABS: HEMATOCRIT 36.8 % (36.0-47.0); HEMOGLOBIN 11.8 g/dl (12.0-15.5); MEAN CORPUSCULAR HEMOGLOBIN 29.1 pg (27.0-33.0); MEAN CORPUSCULAR HGB CONC 32.1 g/dl (32.0-36.5); MEAN CORPUSCULAR VOLUME 90.6 fl (80.0-96.0); PLATELET COUNT, AUTOMATED 325 10^3/uL (150-450); RED BLOOD COUNT 4.06 10^6/uL (4.00-5.40); WHITE BLOOD COUNT 6.7 10^3/uL (4.0-10.0)
[2020-10-14 07:00] LABS: CREATININE FOR GFR 1.22 MG/DL (0.55-1.30); GLOMERULAR FILTRATION RATE 46.5 (>45); MAGNESIUM LEVEL 2.2 MG/DL (1.8-2.4); POTASSIUM SERUM 3.6 MEQ/L (3.5-5.1)
[2020-10-14] MEDS: HumaLOG INSULIN (NovoLOG) PER UNIT SC SCH (09:25)
[2020-10-14] MEDS: ASPIRIN 81MG ENTERIC TABLET PO SCH (09:25)
[2020-10-14] MEDS: GABAPENTIN 300 MG CAP PO SCH (09:25)
[2020-10-14] MEDS: hydroCHLOROthiazide 12.5 MG CAPSULE PO SCH (09:25)
[2020-10-14] MEDS: ATORVASTATIN 20 MG TAB PO SCH (09:25)
[2020-10-14] MEDS: MONTELUKAST 10 MG TAB PO SCH (09:25)
[2020-10-14 09:26] VITALS: BP 135/77
[2020-10-14] MEDS: FLUoxetine 10 MG CAP PO SCH (09:26)
[2020-10-14] MEDS: FAMOTIDINE 20 MG TAB PO SCH (09:26)
[2020-10-14] MEDS: FENOFIBRATE 145 MG TAB (TRICOR) PO SCH (09:26)
[2020-10-14] MEDS: ACETAMINOPHEN TAB 650MG DOSE (2X325MG) PO PRN (09:27)
--- NOTE | 2020-10-14 09:32 | DS.PDOC ---
Discharge Summary General Date of Admission October 13, 2020 at 08:42 Date of Discharge 10/14/2020 Attending Physician: YULISSA CANDELARIA MD Discharge Summary PROCEDURES PERFORMED DURING STAY: None ADMITTING DIAGNOSES: L leg numbness and unsteady gait DISCHARGE DIAGNOSES: Likely TIA with transient L leg numbness and unsteady gait Hypoglycemia HTN DLP NIDDM2 Neuropathy DARY (not on CPAP) Chronic back pain CVA in 06/2020 COMPLICATIONS/CHIEF COMPLAINT: Cva,Hypoglycemia,Left Leg Numbness,& Unsteady Gait. 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 and multifocal stenosis of the right vertebral artery, on ASA and Plavix who presented from home with LLE numbness and unsteady gait since the day before presentation. The daughter reports two days before presentation was very tired after being out shopping with family and she did not think much of it but 1 day before presentation she reported L leg numbness and later had an unsteady gait and the daughter decided to bring her to the ED. The daughter reports that they did not note any recent fever, chills, rigors, AMS, nausea, emesis, complaints of chest pain, abdominal pain, palpitations. HOSPITAL COURSE: In the ED, she was hemodynamically stable, afebrile and breathing comfortably on room air. Workup was notable for hypoglycemia to 30s that improved with D50 amp, CT head that showed no evidence of hemorrhage, mass/mass effect or infarct, while WBC was 10.1, Hgb 12.4, platelets 342, Na 139, K 3.4, Cr 1.46, troponin that was wnl, EKG that showed NSR without ST changes and a CXR that showed no acute cardiopulmonary pathology. She was admitted for a presumed TIA to r/o a CVA and follow MRI/MRA were negative for an acute stroke and showed stable known severe stenoses as noted in the imaging below. Her mobility returned to baseline on working with PT and she is now being discharged home with family with close PCP follow up. DISCHARGE MEDICATIONS: Please see below. ALLERGIES: Please see below. PHYSICAL EXAMINATION ON DISCHARGE: Vitals: Please see below General: Lying in bed, Speaking in full sentences, AAOx3, NAD HEENT: NCAT, PERRLA, EOMI, MMM CVS: RRR, +S1S2, no noted m/r/g Lungs: CTAB, no wheezing, crackles or rhonchi Abdomen: Normoactive sounds, soft, obese, NTND Extremities: No lower extremity edema, no calf tenderness, WWP Neuro: 5/5 strength in bilateral upper and lower extremities, CN2-12 grossly intact, brisk patella reflexes LABORATORY DATA: Please see below. IMAGING: CXR: Lungs: Unremarkable. No consolidation. Pleural spaces: Unremarkable. No pleural effusion. No pneumothorax. Heart/Mediastinum: Unremarkable. No cardiomegaly. Bones/joints: Unremarkable. IMPRESSION: No acute findings. CT head: FINDINGS: Brain: Normal. No hemorrhage. Unremarkable white matter. No mass effect. Cerebral ventricles: No ventriculomegaly. Paranasal sinuses: Visualized sinuses are unremarkable. No fluid levels. Mastoid air cells: Visualized mastoid air cells are well aerated. Bones/joints: Unremarkable. No acute fracture. Soft tissues: Unremarkable. IMPRESSION: No acute intracranial abnormality. MRI brain: Brain: There is no extra-axial collection or intra-axial mass. Mild diffuse volume loss is within the range of normal for patient age. Focally increased T2/FLAIR white matter hyperintensity is nonspecific but typically reflects small-vessel ischemia in this age group. There is no diffusion restriction. There is continued evolution of previously apparent right pontine infarct. Cerebral ventricles: Normal. No ventriculomegaly. Bones/joints: Unremarkable. Paranasal sinuses: Normal as visualized. No acute sinusitis. Mastoid air cells: There is focal fluid within right mastoid air cells. Orbital cavity: Unremarkable. Soft tissues: Unremarkable. IMPRESSION: No acute findings. MRA brain: FINDINGS: Image quality is degraded by motion. ANTERIOR CIRCULATION: Right internal carotid artery: Intracranial segment is patent with no significant stenosis. No aneurysm. Right middle cerebral artery: There is severe focal flow-limiting stenosis/occlusion of the proximal superior M2 segment of the right middle cerebral artery, unchanged. Right anterior cerebral artery: No occlusion or significant stenosis. No aneurysm. Left internal carotid artery: Intracranial segment is patent with no significant stenosis. No aneurysm. Left middle cerebral artery: No occlusion or significant stenosis. No aneurysm. Left anterior cerebral artery: No occlusion or significant stenosis. No aneurysm. POSTERIOR CIRCULATION: Right vertebral artery: The right vertebral artery is diffusely diminutive, likely normal anatomic variant. The distal intradural vertebral artery just proximal to the confluence is not visualized, potentially focal flow-limiting stenosis/occlusion. This appears unchanged. Left vertebral artery: No occlusion or significant stenosis. No aneurysm. Basilar artery: No occlusion or significant stenosis. No aneurysm. Right posterior cerebral artery: There is severe focal stenosis of the proximal P2 segment of the right posterior cerebral artery. Left posterior cerebral artery: No occlusion or significant stenosis. No aneurysm. IMPRESSION: 1. Severe focal flow-limiting stenosis/occlusion of the proximal superior M2 segment of the right middle cerebral artery, unchanged. 2. Severe focal flow-limiting stenosis of the proximal M2 segment of the right posterior cerebral artery. 3. Stable severe flow-limiting stenosis of the non dominant distal right intradural vertebral artery PROGNOSIS: Good ACTIVITY: As tolerated DIET: Consistent carb, 2g sodium DISCHARGE PLAN: Home with close PCP follow up DISPOSITION: Home DISCHARGE INSTRUCTIONS: Home with close PCP follow up ITEMS TO FOLLOWUP ON ON OUTPATIENT: TIA Glycemic control, was hypoglycemic on arrival, may need a fingerstick blood glucose diary to optimize dosing of the oral antihyperglycemics that she is on. DISCHARGE CONDITION: Stable TIME SPENT ON DISCHARGE: 40 minutes. Vital Signs/I&Os Vital Signs Date Time Temp Pulse Resp B/P (MAP) Pulse Ox O2 Delivery O2 Flow Rate FiO2 10/14/20 06:00 97.6 80 20 129/64 (85) 96 Room Air I&O- Last 24 Hours up to 6 AM 10/14/20 06:00 Intake Total 955 ml Output Total 0 ml Balance 955 ml Laboratory Data Labs 24H Laboratory Tests 2 10/13/20 09:44: Bedside Glucose (Misc Panel) 51L 10/13/20 10:33: Bedside Glucose (Misc Panel) 72L 10/13/20 12:12: Bedside Glucose (Misc Panel) 65L 10/13/20 14:51: Bedside Glucose (Misc Panel) 112 10/13/20 16:24: Bedside Glucose (Misc Panel) 104 10/13/20 19:46: Bedside Glucose (Misc Panel) 132H 10/14/20 06:02: Nucleated Red Blood Cells % (auto) 0.0, Anion Gap 6L, Glomerular Filtration Rate 46.5, Calcium Level 9.0, Magnesium Level 2.2 CBC/BMP Laboratory Tests 10/14/20 06:02 FSBS Laboratory Tests Test 10/13/20 09:44 10/13/20 10:33 10/13/20 12:12 10/13/20 14:51 Range/Units Bedside Glucose (Misc Panel) 51 72 65 112 80-115 MG/DL Test 10/13/20 16:24 10/13/20 19:46 Range/Units Bedside Glucose (Misc Panel) 104 132 80-115 MG/DL Discharge Medications Scheduled Amlodipine/Atorvastatin (Amlodipine-Atorvast 10-40 mg) 1 Each Tablet, 1 TAB PO DAILY, (Reported) Aspirin (Aspirin EC) 81 Mg Tablet.dr, 81 MG PO DAILY, (Reported) Clopidogrel Bisulfate (Clopidogrel) 75 Mg Tablet, 75 MG PO QHS, (Reported) Famotidine (Famotidine) 20 Mg Tablet, 20 MG PO BID, (Reported) Fenofibrate Nanocrystallized (Fenofibrate) 145 Mg Tablet, 145 MG PO DAILY, (Reported) Fluoxetine Hcl (Fluoxetine HCl) 10 Mg Capsule, 10 MG PO DAILY, (Reported) Furosemide (Furosemide) 40 Mg Tablet, 40 MG PO QHS, (Reported) Gabapentin (Gabapentin) 300 Mg Capsule, 300 MG PO TID, (Reported) Glipizide (Glipizide) 10 Mg Tablet, 10 MG PO BID, (Reported) Lisinopril/Hydrochlorothiazide (Lisinopril-Hctz 20-12.5 mg Tab) 1 Each Tablet, 1 TAB PO DAILY, (Reported) Metformin HCl (Metformin HCl) 1,000 Mg Tablet, 1,000 MG PO BID, (Reported) Pioglitazone HCl (Pioglitazone HCl) 15 Mg Tablet, 15 MG PO QHS, (Reported) Potassium Chloride (Potassium Chloride) 10 Meq Tab.er.prt, 10 MEQ PO QHS, (Reported) Scheduled PRN Ibuprofen (Ibuprofen) 800 Mg Tablet, 800 MG PO DAILY PRN for PAIN, (Reported) Montelukast Sodium (Montelukast Sodium) 10 Mg Tablet, 10 MG PO DAILY PRN for ALLERGIES, (Reported) Allergies Coded Allergies: No Known Allergies (Unverified , 06/19/19) YULISSA CANDELARIA MD October 14, 2020 09:10
[2020-10-14] MEDS ORDERED: IBUPROFEN 800 MG TAB PO PRN (09:35)
[2020-10-14 10:00] VITALS: BP 135/77
== END 2020-10-14 11:59 | disposition home or self-care (01) ==
LOC: M ED 04:10 → M ED INP 08:42 → ENRESERV 13:41 → M MSPAV 14:56
PROVIDERS: ADMIT Internal Medicine; ATTEND Internal Medicine
DX: G45.9 Transient cerebral ischemic attack, unspecified (principal); R20.2 Paresthesia of skin; R26.81 Unsteadiness on feet; E11.649 Type 2 diabetes mellitus with hypoglycemia without coma; E78.49 Other hyperlipidemia; G47.33 Obstructive sleep apnea (adult) (pediatric); M54.9 Dorsalgia, unspecified; Z86.73 Personal history of transient ischemic attack (TIA), and cerebral infarction without residual deficits; Z79.82 Long term (current) use of aspirin; Z79.84 Long term (current) use of oral hypoglycemic drugs; Z79.899 Other long term (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
CPT/HCPCS: 36415; 70450; 70544; 70551; 71046; 80048; 80076; 82550; 82553; 83735; 84439; 84443; 84484; 85025; 85027; 87631; 93005; 93041; 94760; 96372; 96374; 96375; 96376; 97161; 99285; G0378; J1644; J2060

== ENCOUNTER → 2020-11-11 | Outpatient (CLI) | payer MEDICARE ==
[~2020-11-11] MED LIST changes: +AMLO1TAB22 PO; +ASPI-161 PO; +GLIP10TA6 PO; +IBUP1TAB7 PO; +PIOG1TAB36 PO; +POTA10TA16 PO; +TERC0.4C10 PV; -TERC0.4C2 PV
[2020-11-11 11:44] LABS: BASO # 0.1 10^3/uL (0.0-0.2); BASO % 0.6 % (0.0-1.0); EOS # 0.7 10^3/uL (0.0-0.5); EOS % 7.2 % (0.0-3.0); HEMATOCRIT 38.1 % (36.0-47.0); HEMOGLOBIN 12.2 g/dl (12.0-15.5); LYMPH # 2.2 10^3/uL (1.5-5.0); LYMPH % 23.8 % (24.0-44.0); MEAN CORPUSCULAR VOLUME 90.7 fl (80.0-96.0); MONO # 0.5 10^3/uL (0.0-0.8); MONO % 5.9 % (2.0-8.0); NEUTROPHILS # 5.6 10^3/uL (1.5-8.5); NEUTROPHILS % 62.1 % (36.0-66.0); PLATELET COUNT, AUTOMATED 375 10^3/uL (150-450); WHITE BLOOD COUNT 9.1 10^3/uL (4.0-10.0)
[2020-11-11 12:15] LABS: HEMOGLOBIN A1c 6.7 %
[2020-11-11 12:21] LABS: ALBUMIN 3.7 GM/DL (3.2-5.2); BILIRUBIN,TOTAL 0.3 MG/DL (0.2-1.0); CALCIUM LEVEL 9.1 MG/DL (8.8-10.2); CHOLESTEROL RISK RATIO 4.928 (<5); CREATININE FOR GFR 1.19 MG/DL (0.55-1.30); GLOMERULAR FILTRATION RATE 47.9 (>45); MAGNESIUM LEVEL 2.3 MG/DL (1.8-2.4); POTASSIUM SERUM 3.9 MEQ/L (3.5-5.1); THYROID STIMULATING HORMONE 2.29 uIU/ML (0.358-3.740); TOTAL PROTEIN 7.4 GM/DL (6.4-8.2)
== END ==
LOC: M LAB 10:58
PROVIDERS: ATTEND Nurse Practitioner Family
DX: K21.9 Gastro-esophageal reflux disease without esophagitis (principal); E11.65 Type 2 diabetes mellitus with hyperglycemia; E78.00 Pure hypercholesterolemia, unspecified; Z79.899 Other long term (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

== ENCOUNTER → 2020-11-29 | Outpatient (CLI) | payer MEDICARE ==
[~2020-11-29] MED LIST changes: +CARA1TAB6 PO; -FLUO10CA16 PO; +FLUO10CA18 PO; -KLOR10TA76 PO; -LISI-898 PO; +LISI5TAB11 PO; -MONT10TA10 PO; +MONT10TA97 PO; +OMEP40CA4 PO; +POTA-136 PO; +POTA-149 PO; +POTA-151 PO; -POTA10TA16 PO; -POTA20TA6 PO
== END ==
LOC: M WHC 13:22
PROVIDERS: ATTEND Advanced Practice Midwife
DX: Z01.419 Encounter for gynecological examination (general) (routine) without abnormal findings (principal); Z12.31 Encounter for screening mammogram for malignant neoplasm of breast; N95.8 Other specified menopausal and perimenopausal disorders; R92.1 Mammographic calcification found on diagnostic imaging of breast
CPT/HCPCS: 77063; 77067; 77080; G0101

== ENCOUNTER → 2021-02-16 | Outpatient (CLI) | payer MEDICARE ==
[~2021-02-16] MED LIST changes: -CARA1TAB6 PO; +FLUO10CA16 PO; -FLUO10CA18 PO; +LISI-898 PO; -LISI5TAB11 PO; +MONT10TA10 PO; -MONT10TA97 PO; -OMEP40CA4 PO; -POTA-149 PO; -POTA-151 PO; +POTA10TA16 PO; +POTA20TA6 PO
[2021-02-16 13:04] LABS: BASO # 0.1 10^3/uL (0.0-0.2); BASO % 0.6 % (0.0-1.0); EOS # 0.5 10^3/uL (0.0-0.5); HEMATOCRIT 38.2 % (36.0-47.0); HEMOGLOBIN 12.6 g/dl (12.0-15.5); LYMPH # 1.9 10^3/uL (1.5-5.0); LYMPH % 18.1 % (24.0-44.0); MEAN CORPUSCULAR HEMOGLOBIN 29.6 pg (27.0-33.0); MEAN CORPUSCULAR VOLUME 89.7 fl (80.0-96.0); MONO # 0.7 10^3/uL (0.0-0.8); MONO % 6.7 % (2.0-8.0); NEUTROPHILS # 7.1 10^3/uL (1.5-8.5); NEUTROPHILS % 69.1 % (36.0-66.0); PLATELET COUNT, AUTOMATED 408 10^3/uL (150-450); RED BLOOD COUNT 4.26 10^6/uL (4.00-5.40); WHITE BLOOD COUNT 10.3 10^3/uL (4.0-10.0)
[2021-02-16 13:20] LABS: HEMOGLOBIN A1c 5.9 %
[2021-02-16 13:45] LABS: ALBUMIN 3.7 GM/DL (3.2-5.2); BILIRUBIN,TOTAL 0.5 MG/DL (0.2-1.0); CALCIUM LEVEL 9.5 MG/DL (8.8-10.2); CHOLESTEROL RISK RATIO 4.222 (<5); CREATININE FOR GFR 1.07 MG/DL (0.55-1.30); GLOMERULAR FILTRATION RATE 54.1 (>45); MAGNESIUM LEVEL 1.8 MG/DL (1.8-2.4); THYROID STIMULATING HORMONE 1.86 uIU/ML (0.358-3.740); TOTAL PROTEIN 7.4 GM/DL (6.4-8.2)
== END ==
LOC: M LAB 11:27
PROVIDERS: ATTEND Nurse Practitioner Family
DX: K21.9 Gastro-esophageal reflux disease without esophagitis (principal); E78.00 Pure hypercholesterolemia, unspecified; E11.65 Type 2 diabetes mellitus with hyperglycemia; E83.42 Hypomagnesemia; Z79.899 Other long term (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

== ENCOUNTER 2021-05-07 00:57 | Emergency (ER) | payer MEDICARE ==
[~2021-05-07] VITALS: Ht 160 cm; Wt 80.5 kg
[~2021-05-07 00:57] MED LIST changes: -FLUO10CA16 PO; +FLUO10CA18 PO; -LISI-898 PO; +LISI5TAB11 PO; -MONT10TA10 PO; +MONT10TA97 PO; +POTA-149 PO; +POTA-151 PO; -POTA10TA16 PO; -POTA20TA6 PO
[2021-05-07 01:43] LABS: BASO % 0.4 % (0.0-1.0); EOS # 0.7 10^3/uL (0.0-0.5); EOS % 7.4 % (0.0-3.0); HEMATOCRIT 37.9 % (36.0-47.0); HEMOGLOBIN 12.3 g/dl (12.0-15.5); LYMPH # 2.4 10^3/uL (1.5-5.0); LYMPH % 24.5 % (24.0-44.0); MEAN CORPUSCULAR HEMOGLOBIN 28.9 pg (27.0-33.0); MEAN CORPUSCULAR HGB CONC 32.5 g/dl (32.0-36.5); MONO # 0.7 10^3/uL (0.0-0.8); MONO % 7.2 % (2.0-8.0); NEUTROPHILS # 5.9 10^3/uL (1.5-8.5); NEUTROPHILS % 60.3 % (36.0-66.0); PLATELET COUNT, AUTOMATED 402 10^3/uL (150-450); RED BLOOD COUNT 4.26 10^6/uL (4.00-5.40); WHITE BLOOD COUNT 9.9 10^3/uL (4.0-10.0)
[2021-05-07] MEDS ORDERED: GI COCKTAIL 50ML BTL(HYOSCYAMINE/MAALOX/LIDOCAINE VISCOUS)(1:3:1) PO ONE (02:05)
[2021-05-07 02:13] LABS: CK-MB VALUE MASS 1.3 NG/ML (<3.6); MB/CK RELATIVE INDEX 1.6 (< OR =4)
[2021-05-07 02:22] LABS: CALCIUM LEVEL 9.2 MG/DL (8.8-10.2); CREATININE FOR GFR 1.06 MG/DL (0.55-1.30); GLOMERULAR FILTRATION RATE 54.7 (>45); POTASSIUM SERUM 3.9 MEQ/L (3.5-5.1)
[2021-05-07 02:50] LABS: CK-MB VALUE MASS 1.1 NG/ML (<3.6); MB/CK RELATIVE INDEX 1.51 (< OR =4)
[2021-05-07 05:15] LABS: MB/CK RELATIVE INDEX 1.33 (< OR =4)
[2021-05-07] MEDS ORDERED: SUCRALFATE 1 GM TAB PO ONE (06:20)
[2021-05-07] MEDS ORDERED: OMEPRAZOLE 20MG CAP PO ONE (06:20)
[2021-05-07] MEDS ORDERED: FAMOTIDINE 20 MG TAB PO ONE (06:20)
[2021-05-07] MEDS ORDERED: CARA1TAB6 PO (06:36)
[2021-05-07] MEDS ORDERED: OMEP40CA4 PO (06:36)
[2021-05-07 06:56] VITALS: BP 128/64
== END 2021-05-07 07:03 | disposition home or self-care (01) ==
LOC: M ED 00:57
DX: R07.9 Chest pain, unspecified (principal); E11.9 Type 2 diabetes mellitus without complications; I10 Essential (primary) hypertension; R94.31 Abnormal electrocardiogram [ECG] [EKG]; E78.5 Hyperlipidemia, unspecified; F32.89 Other specified depressive episodes; Z86.73 Personal history of transient ischemic attack (TIA), and cerebral infarction without residual deficits; Z79.84 Long term (current) use of oral hypoglycemic drugs

== ENCOUNTER → 2021-06-22 | Outpatient (CLI) | payer MEDICARE ==
[~2021-06-22] MED LIST changes: +CARA1TAB6 PO; +OMEP40CA4 PO
[2021-06-22 09:44] LABS: BASO % 0.4 % (0.0-1.0); EOS # 0.6 10^3/uL (0.0-0.5); EOS % 5.9 % (0.0-3.0); HEMATOCRIT 37.4 % (36.0-47.0); HEMOGLOBIN 12.1 g/dl (12.0-15.5); LYMPH # 1.8 10^3/uL (1.5-5.0); LYMPH % 17.9 % (24.0-44.0); MEAN CORPUSCULAR HEMOGLOBIN 28.1 pg (27.0-33.0); MEAN CORPUSCULAR HGB CONC 32.4 g/dl (32.0-36.5); MEAN CORPUSCULAR VOLUME 86.8 fl (80.0-96.0); MONO # 0.7 10^3/uL (0.0-0.8); MONO % 6.4 % (2.0-8.0); NEUTROPHILS # 7.1 10^3/uL (1.5-8.5); NEUTROPHILS % 68.8 % (36.0-66.0); PLATELET COUNT, AUTOMATED 337 10^3/uL (150-450); RED BLOOD COUNT 4.31 10^6/uL (4.00-5.40); WHITE BLOOD COUNT 10.3 10^3/uL (4.0-10.0)
[2021-06-22 10:47] LABS: HEMOGLOBIN A1c 6.5 %
[2021-06-22 13:17] LABS: ALBUMIN 3.2 GM/DL (3.2-5.2); ALT/SGPT 29 U/L (12-78); BILIRUBIN,TOTAL 0.3 MG/DL (0.2-1.0); BLOOD UREA NITROGEN 16 MG/DL (7-18); CALCIUM LEVEL 8.4 MG/DL (8.8-10.2); CARBON DIOXIDE LEVEL 29 MEQ/L (21-32); CHLORIDE LEVEL 108 MEQ/L (98-107); CHOLESTEROL LEVEL 180 MG/DL (<200); CREATININE FOR GFR 0.85 MG/DL (0.55-1.30); GLOMERULAR FILTRATION RATE > 60.0 (>45); GLUCOSE, FASTING 123 MG/DL (70-100); HDL CHOLESTEROL 40 MG/DL (>40); LDL CHOLESTEROL 110 MG/DL (<100); NON-HDL-C 140 MG/DL; POTASSIUM SERUM 3.2 MEQ/L (3.5-5.1); SODIUM LEVEL 143 MEQ/L (136-145); TOTAL PROTEIN 6.7 GM/DL (6.4-8.2); TRIGLYCERIDES LEVEL 152 MG/DL (<150)
[2021-06-22 17:50] LABS: MAGNESIUM LEVEL 1.6 MG/DL (1.7-2.2)
== END ==
LOC: M LAB 08:47
PROVIDERS: ATTEND Nurse Practitioner Family
DX: K21.9 Gastro-esophageal reflux disease without esophagitis (principal); E78.00 Pure hypercholesterolemia, unspecified; E11.65 Type 2 diabetes mellitus with hyperglycemia; E83.42 Hypomagnesemia; Z79.899 Other long term (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

== ENCOUNTER → 2021-08-17 | Outpatient (RCR) | payer MEDICARE | LOC: M PT 07-19 10:41 | PROVIDERS: ATTEND Nurse Practitioner Family | DX: I69.354 Hemiplegia and hemiparesis following cerebral infarction affecting left non-dominant side (principal) ==

== ENCOUNTER 2021-09-07 15:00 | Outpatient (RCR) | payer MEDICARE | END 2021-09-16 | LOC: M PT 15:00 | PROVIDERS: ATTEND Nurse Practitioner Family | DX: I69.354 Hemiplegia and hemiparesis following cerebral infarction affecting left non-dominant side (principal) ==

== ENCOUNTER 2021-09-22 00:53 | Emergency (ER) | payer MEDICARE ==
[~2021-09-22] VITALS: Ht 154.9 cm; Wt 87.4 kg
[2021-09-22 04:52] LABS: VENOUS BASE EXCESS -0.8 (-2.0-2.0); VENOUS HCO3 24.4 MEQ/L (23.0-27.0); VENOUS O2 SATURATION 85.5 % (60.0-80.0); VENOUS PARTIAL PRESSURE CO2 42.2 mmHg (38.0-50.0); VENOUS PARTIAL PRESSURE O2 52.7 mmHg (30.0-50.0); VENOUS STANDARD HCO3 23.6 MEQ/L; VENOUS TOTAL CO2 25.7 MEQ/L (24.0-28.0)
[2021-09-22 04:58] LABS: BASO % 0.4 % (0.0-1.0); EOS # 0.6 10^3/uL (0.0-0.5); EOS % 5.7 % (0.0-3.0); HEMATOCRIT 35.5 % (36.0-47.0); HEMOGLOBIN 11.4 g/dl (12.0-15.5); LYMPH # 2.2 10^3/uL (1.5-5.0); LYMPH % 19.9 % (24.0-44.0); MEAN CORPUSCULAR HEMOGLOBIN 28.6 pg (27.0-33.0); MEAN CORPUSCULAR HGB CONC 32.1 g/dl (32.0-36.5); MEAN CORPUSCULAR VOLUME 89.2 fl (80.0-96.0); MONO # 0.7 10^3/uL (0.0-0.8); MONO % 6.1 % (2.0-8.0); NEUTROPHILS # 7.3 10^3/uL (1.5-8.5); NEUTROPHILS % 67.5 % (36.0-66.0); PLATELET COUNT, AUTOMATED 335 10^3/uL (150-450); RED BLOOD COUNT 3.98 10^6/uL (4.00-5.40); WHITE BLOOD COUNT 10.8 10^3/uL (4.0-10.0)
[2021-09-22 05:47] LABS: ALBUMIN 3.1 GM/DL (3.2-5.2); ALT/SGPT 14 U/L (12-78); BILIRUBIN,DIRECT < 0.1 MG/DL (0.0-0.2); BILIRUBIN,TOTAL 0.4 MG/DL (0.2-1.0); BLOOD UREA NITROGEN 21 MG/DL (7-18); CALCIUM LEVEL 8.7 MG/DL (8.8-10.2); CARBON DIOXIDE LEVEL 26 MEQ/L (21-32); CHLORIDE LEVEL 110 MEQ/L (98-107); CK-MB VALUE MASS 1.5 NG/ML (<3.6); CREATININE FOR GFR 1.21 MG/DL (0.55-1.30); GLOMERULAR FILTRATION RATE 46.8 (>39); GLUCOSE, FASTING 117 MG/DL (70-100); MB/CK RELATIVE INDEX 0.73 (< OR =4); NT-PRO BNP 2166 PG/ML (<125); SODIUM LEVEL 142 MEQ/L (136-145); TOTAL PROTEIN 6.9 GM/DL (6.4-8.2)
[2021-09-22 06:31] LABS: CK-MB VALUE MASS 1.6 NG/ML (<3.6); MB/CK RELATIVE INDEX 1.63 (< OR =4)
[2021-09-22] MEDS ORDERED: FUROSEMIDE 100MG/10ML VIAL (J1940) IV ONE (07:05)
[2021-09-22] MEDS ORDERED: FURO20TA2 PO (07:06)
[2021-09-22 07:17] VITALS: BP 178/86
== END 2021-09-22 07:31 | disposition home or self-care (01) ==
LOC: M ED 00:53
DX: I50.20 Unspecified systolic (congestive) heart failure (principal); R94.31 Abnormal electrocardiogram [ECG] [EKG]; E11.9 Type 2 diabetes mellitus without complications; I10 Essential (primary) hypertension; Z86.79 Personal history of other diseases of the circulatory system; Z79.4 Long term (current) use of insulin; Z79.811 Long term (current) use of aromatase inhibitors; Z79.899 Other long term (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
CPT/HCPCS: 71045; 80048; 80076; 82550; 82553; 82803; 83605; 83880; 84484; 85025; 87486; 87581; 87633; 87798; 93005; 94760; 96374; 99285; J1940

== ENCOUNTER → 2021-09-26 | Outpatient (CLI) | payer MEDICARE ==
[~2021-09-26] MED LIST changes: +FURO20TA2 PO
[2021-09-26 10:40] LABS: BASO % 0.4 % (0.0-1.0); EOS # 0.5 10^3/uL (0.0-0.5); EOS % 7.2 % (0.0-3.0); HEMATOCRIT 38.2 % (36.0-47.0); HEMOGLOBIN 11.9 g/dl (12.0-15.5); LYMPH # 1.4 10^3/uL (1.5-5.0); LYMPH % 18.8 % (24.0-44.0); MEAN CORPUSCULAR HGB CONC 31.2 g/dl (32.0-36.5); MEAN CORPUSCULAR VOLUME 89.9 fl (80.0-96.0); MONO # 0.6 10^3/uL (0.0-0.8); MONO % 8.5 % (2.0-8.0); NEUTROPHILS # 4.8 10^3/uL (1.5-8.5); NEUTROPHILS % 64.8 % (36.0-66.0); PLATELET COUNT, AUTOMATED 351 10^3/uL (150-450); RED BLOOD COUNT 4.25 10^6/uL (4.00-5.40); WHITE BLOOD COUNT 7.4 10^3/uL (4.0-10.0)
[2021-09-26 10:57] LABS: HEMOGLOBIN A1c 6.5 %
[2021-09-26 11:13] LABS: ALBUMIN 3.3 GM/DL (3.2-5.2); BILIRUBIN,TOTAL 0.4 MG/DL (0.2-1.0); CALCIUM LEVEL 9.1 MG/DL (8.8-10.2); CHOLESTEROL RISK RATIO 3.717 (<5); CREATININE FOR GFR 1.13 MG/DL (0.55-1.30); GLOMERULAR FILTRATION RATE 50.7 (>39); MAGNESIUM LEVEL 2.2 MG/DL (1.8-2.4); POTASSIUM SERUM 3.9 MEQ/L (3.5-5.1); THYROID STIMULATING HORMONE 2.01 uIU/ML (0.358-3.740); TOTAL PROTEIN 6.9 GM/DL (6.4-8.2)
== END ==
LOC: M LAB 09:18
PROVIDERS: ATTEND Nurse Practitioner Family
DX: K21.9 Gastro-esophageal reflux disease without esophagitis (principal); E78.00 Pure hypercholesterolemia, unspecified; E11.65 Type 2 diabetes mellitus with hyperglycemia; Z79.899 Other long term (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; E83.42 Hypomagnesemia

== ENCOUNTER 2021-10-09 08:32 | Inpatient (IN) | payer MEDICARE ==
[~2021-10-09] VITALS: Ht 160 cm; Wt 84.6 kg
[2021-10-09] MEDS: OMEPRAZOLE 20MG CAP PO SCH (09:00)
[2021-10-09 09:53] LABS: BASO # 0.1 10^3/uL (0.0-0.2); BASO % 0.7 % (0.0-1.0); EOS # 0.5 10^3/uL (0.0-0.5); EOS % 6.3 % (0.0-3.0); HEMATOCRIT 35.2 % (36.0-47.0); HEMOGLOBIN 11.2 g/dl (12.0-15.5); LYMPH # 1.2 10^3/uL (1.5-5.0); LYMPH % 15.3 % (24.0-44.0); MEAN CORPUSCULAR HEMOGLOBIN 28.1 pg (27.0-33.0); MEAN CORPUSCULAR HGB CONC 31.8 g/dl (32.0-36.5); MEAN CORPUSCULAR VOLUME 88.4 fl (80.0-96.0); MONO # 0.6 10^3/uL (0.0-0.8); MONO % 7.3 % (2.0-8.0); NEUTROPHILS # 5.3 10^3/uL (1.5-8.5); NEUTROPHILS % 70.1 % (36.0-66.0); PLATELET COUNT, AUTOMATED 307 10^3/uL (150-450); RED BLOOD COUNT 3.98 10^6/uL (4.00-5.40); WHITE BLOOD COUNT 7.6 10^3/uL (4.0-10.0)
[2021-10-09 10:08] LABS: INR 1.07; PROTHROMBIN TIME 14.3 SECONDS (12.7-14.5)
[2021-10-09 10:09] LABS: PARTIAL THROMBOPLASTIN TIME 35.8 SECONDS (25.9-37.0)
[2021-10-09 10:12] LABS: MB/CK RELATIVE INDEX 1.69 (< OR =4)
[2021-10-09 10:21] LABS: RSV AMPLIFICATION NEGATIVE (NEGATIVE)
[2021-10-09 10:22] LABS: ALBUMIN 3.3 GM/DL (3.2-5.2); BILIRUBIN,DIRECT 0.2 MG/DL (0.0-0.2); BILIRUBIN,TOTAL 0.5 MG/DL (0.2-1.0); CALCIUM LEVEL 8.5 MG/DL (8.8-10.2); CREATININE FOR GFR 1.12 MG/DL (0.55-1.30); FREE T4 1.3 NG/DL (0.76-1.46); GLOMERULAR FILTRATION RATE 51.2 (>39); POTASSIUM SERUM 3.4 MEQ/L (3.5-5.1); THYROID STIMULATING HORMONE 2.55 uIU/ML (0.358-3.740)
[2021-10-09] MEDS ORDERED: FUROSEMIDE 40MG/4ML VIAL (J1940) IV ONE (10:45)
[2021-10-09] MEDS ORDERED: ISOVUE-370 76% 100ML VIAL As Ordered ONE (10:59)
[2021-10-09 11:09] LABS: MB/CK RELATIVE INDEX 1.72 (< OR =4)
[2021-10-09] MEDS: INSULIN LISPRO (NovoLOG) PER UNIT SC SCH ×3 (12:00→21:00)
[2021-10-09] MEDS ORDERED: GLUCAGON INJ 1MG VIAL SC PRN (13:55)
[2021-10-09] MEDS ORDERED: GLUCOSE 4GM CHEW TABLET PO PRN (13:55)
[2021-10-09] MEDS ORDERED: POTASSIUM CHLORIDE 10MEQ SR TABLET PO ONE (13:55)
[2021-10-09] MEDS ORDERED: DEXTROSE 50% 50 ML SYRINGE IV PRN (13:55)
[2021-10-09] MEDS ORDERED: GABA-282 PO (14:41)
[2021-10-09] MEDS ORDERED: ATOR1TAB19 PO (14:41)
[2021-10-09] MEDS ORDERED: FENO145T7 PO (14:41)
[2021-10-09] MEDS ORDERED: LISI20TA33 PO (14:41)
[2021-10-09] MEDS ORDERED: FURO20TA2 PO (14:41)
[2021-10-09] MEDS ORDERED: AMLO1TAB25 PO (14:41)
[2021-10-09] MEDS ORDERED: OMEP40CA4 PO (14:41)
[2021-10-09] MEDS ORDERED: FLUO1TAB3 PO (14:41)
[2021-10-09] MEDS ORDERED: FURO40TA2 PO (14:45)
[2021-10-09] MEDS ORDERED: HOME MED LIST COMPLETE! XX SCH (14:50)
[2021-10-09] MEDS ORDERED: MONTELUKAST 10 MG TAB PO PRN (15:00)
[2021-10-09] MEDS ORDERED: ACETAMINOPHEN TAB 650MG DOSE (2X325MG) PO PRN (15:00)
[2021-10-09 15:28] LABS: MAGNESIUM LEVEL 2.1 MG/DL (1.8-2.4); PHOSPHORUS LEVEL 2.8 MG/DL (2.5-4.9)
[2021-10-09] MEDS: GABAPENTIN 300 MG CAP PO SCH ×2 (16:00→21:27)
[2021-10-09] MEDS: FUROSEMIDE 40MG/4ML VIAL (J1940) IV SCH (17:00)
[2021-10-09] MEDS ORDERED: INSULIN LISPRO (NovoLOG) PER UNIT SC SCH (17:30)
[2021-10-09 20:30] VITALS: BP 153/86
[2021-10-09] MEDS: HEPARIN SOD (PORCINE) 5000UNITS/ML 1ML VIAL/SYRINGE SQ SCH (21:27)
[2021-10-09] MEDS: FAMOTIDINE 20 MG TAB PO SCH (21:27)
[2021-10-09 23:48] VITALS: BP 134/65
[2021-10-10 04:00] VITALS: BP 165/83
[2021-10-10 05:00] LABS: HEMATOCRIT 34.8 % (36.0-47.0); HEMOGLOBIN 10.9 g/dl (12.0-15.5); MEAN CORPUSCULAR HEMOGLOBIN 27.8 pg (27.0-33.0); MEAN CORPUSCULAR HGB CONC 31.3 g/dl (32.0-36.5); MEAN CORPUSCULAR VOLUME 88.8 fl (80.0-96.0); PLATELET COUNT, AUTOMATED 297 10^3/uL (150-450); RED BLOOD COUNT 3.92 10^6/uL (4.00-5.40); WHITE BLOOD COUNT 6.8 10^3/uL (4.0-10.0)
[2021-10-10 05:20] LABS: CALCIUM LEVEL 8.7 MG/DL (8.8-10.2); CREATININE FOR GFR 1.1 MG/DL (0.55-1.30); GLOMERULAR FILTRATION RATE 52.3 (>39); MAGNESIUM LEVEL 2.2 MG/DL (1.8-2.4); POTASSIUM SERUM 3.5 MEQ/L (3.5-5.1)
[2021-10-10] MEDS: HEPARIN SOD (PORCINE) 5000UNITS/ML 1ML VIAL/SYRINGE SQ SCH ×3 (05:38→21:20)
[2021-10-10] MEDS: INSULIN LISPRO (NovoLOG) PER UNIT SC SCH ×4 (07:30→19:59)
[2021-10-10 08:00] VITALS: BP 155/76
[2021-10-10] MEDS: FENOFIBRATE 145MG TABLET (TRICOR) PO SCH (09:18)
[2021-10-10] MEDS: ASPIRIN 81MG ENTERIC TABLET PO SCH (09:18)
[2021-10-10] MEDS: FLUoxetine 20MG CAP PO SCH (09:18)
[2021-10-10] MEDS: FUROSEMIDE 40MG/4ML VIAL (J1940) IV SCH ×3 (09:18→18:03)
[2021-10-10] MEDS: OMEPRAZOLE 20MG CAP PO SCH (09:19)
[2021-10-10] MEDS: GABAPENTIN 300 MG CAP PO SCH ×3 (09:19→21:19)
[2021-10-10] MEDS: ATORVASTATIN 10 MG TAB PO SCH (09:19)
[2021-10-10] MEDS: POTASSIUM CHLORIDE 10MEQ SR TABLET PO SCH (09:19)
[2021-10-10] MEDS: CLOPIDOGREL 75 MG TAB PO SCH (09:20)
[2021-10-10] MEDS: FAMOTIDINE 20 MG TAB PO SCH ×2 (09:20→21:19)
[2021-10-10 12:00] VITALS: BP 157/70
[2021-10-10 16:00] VITALS: BP 136/65
[2021-10-10] MEDS ORDERED: FUROSEMIDE 40MG/4ML VIAL (J1940) IV SCH (16:00)
[2021-10-10 20:00] VITALS: BP 145/70
[2021-10-11] VITALS (8 sets, daily range): BP systolic 121–150; BP diastolic 60–70; O2SAT 92
[2021-10-11] MEDS: FUROSEMIDE 40MG/4ML VIAL (J1940) IV SCH ×4 (00:30→17:46)
[2021-10-11 05:36] LABS: HEMATOCRIT 35.8 % (36.0-47.0); HEMOGLOBIN 11.3 g/dl (12.0-15.5); MEAN CORPUSCULAR HEMOGLOBIN 27.9 pg (27.0-33.0); MEAN CORPUSCULAR HGB CONC 31.6 g/dl (32.0-36.5); MEAN CORPUSCULAR VOLUME 88.4 fl (80.0-96.0); PLATELET COUNT, AUTOMATED 318 10^3/uL (150-450); RED BLOOD COUNT 4.05 10^6/uL (4.00-5.40); WHITE BLOOD COUNT 7.4 10^3/uL (4.0-10.0)
[2021-10-11] MEDS: HEPARIN SOD (PORCINE) 5000UNITS/ML 1ML VIAL/SYRINGE SQ SCH ×3 (05:48→21:31)
[2021-10-11 05:59] LABS: CALCIUM LEVEL 9.4 MG/DL (8.8-10.2); CREATININE FOR GFR 1.21 MG/DL (0.55-1.30); GLOMERULAR FILTRATION RATE 46.8 (>39); MAGNESIUM LEVEL 2.3 MG/DL (1.8-2.4); POTASSIUM SERUM 3.3 MEQ/L (3.5-5.1)
[2021-10-11] MEDS ORDERED: POTASSIUM CHLORIDE 10MEQ SR TABLET PO ONE (07:30)
[2021-10-11] MEDS: INSULIN LISPRO (NovoLOG) PER UNIT SC SCH ×4 (08:44→21:00)
[2021-10-11] MEDS: FENOFIBRATE 145MG TABLET (TRICOR) PO SCH (08:45)
[2021-10-11] MEDS: GABAPENTIN 300 MG CAP PO SCH ×3 (08:45→21:30)
[2021-10-11] MEDS: ASPIRIN 81MG ENTERIC TABLET PO SCH (08:45)
[2021-10-11] MEDS: OMEPRAZOLE 20MG CAP PO SCH (08:46)
[2021-10-11] MEDS: CLOPIDOGREL 75 MG TAB PO SCH (08:46)
[2021-10-11] MEDS: FLUoxetine 20MG CAP PO SCH (08:47)
[2021-10-11] MEDS: ATORVASTATIN 10 MG TAB PO SCH (08:47)
[2021-10-11] MEDS: FAMOTIDINE 20 MG TAB PO SCH ×2 (08:47→21:30)
[2021-10-11] MEDS: POTASSIUM CHLORIDE 10MEQ SR TABLET PO SCH (09:24)
[2021-10-12] MEDS: FUROSEMIDE 40MG/4ML VIAL (J1940) IV SCH ×2 (00:06→05:17)
[2021-10-12 04:00] VITALS: BP 145/67
[2021-10-12] MEDS: HEPARIN SOD (PORCINE) 5000UNITS/ML 1ML VIAL/SYRINGE SQ SCH (05:16)
[2021-10-12 06:04] LABS: HEMOGLOBIN 12.2 g/dl (12.0-15.5); MEAN CORPUSCULAR HEMOGLOBIN 27.5 pg (27.0-33.0); MEAN CORPUSCULAR HGB CONC 31.3 g/dl (32.0-36.5); MEAN CORPUSCULAR VOLUME 87.8 fl (80.0-96.0); PLATELET COUNT, AUTOMATED 328 10^3/uL (150-450); RED BLOOD COUNT 4.44 10^6/uL (4.00-5.40); WHITE BLOOD COUNT 8.4 10^3/uL (4.0-10.0)
[2021-10-12 06:25] LABS: CALCIUM LEVEL 9.3 MG/DL (8.8-10.2); CREATININE FOR GFR 1.32 MG/DL (0.55-1.30); GLOMERULAR FILTRATION RATE 42.4 (>39); MAGNESIUM LEVEL 2.3 MG/DL (1.8-2.4); POTASSIUM SERUM 3.3 MEQ/L (3.5-5.1)
[2021-10-12 08:00] VITALS: BP 121/56
[2021-10-12] MEDS ORDERED: POTASSIUM CHLORIDE 10MEQ SR TABLET PO ONE (08:00)
[2021-10-12] MEDS ORDERED: FUROSEMIDE 20 MG TAB PO SCH (09:00)
[2021-10-12] MEDS: ASPIRIN 81MG ENTERIC TABLET PO SCH (09:40)
[2021-10-12] MEDS: FENOFIBRATE 145MG TABLET (TRICOR) PO SCH (09:40)
[2021-10-12] MEDS: ATORVASTATIN 10 MG TAB PO SCH (09:40)
[2021-10-12] MEDS: GABAPENTIN 300 MG CAP PO SCH (09:40)
[2021-10-12] MEDS: FLUoxetine 20MG CAP PO SCH (09:41)
[2021-10-12] MEDS: FAMOTIDINE 20 MG TAB PO SCH (09:41)
[2021-10-12] MEDS: CLOPIDOGREL 75 MG TAB PO SCH (09:41)
[2021-10-12] MEDS: OMEPRAZOLE 20MG CAP PO SCH (09:41)
[2021-10-12] MEDS: INSULIN LISPRO (NovoLOG) PER UNIT SC SCH ×2 (09:54→13:25)
[2021-10-12] MEDS: POTASSIUM CHLORIDE 10MEQ SR TABLET PO SCH (09:56)
[2021-10-12] MEDS ORDERED: FURO20TA2 PO (10:16)
== END 2021-10-12 14:05 | disposition home health service (06) | DRG 291 ==
LOC: M ED 08:32 → M ED INP 14:23 → M PCU 20:31
PROVIDERS: ADMIT Internal Medicine; ATTEND Internal Medicine
PROC: B246ZZZ Ultrasonography of Right and Left Heart (ICD-10-PCS; principal; 2021-10-11)
DX: I11.0 Hypertensive heart disease with heart failure (principal); I50.33 Acute on chronic diastolic (congestive) heart failure; E11.9 Type 2 diabetes mellitus without complications; Z86.73 Personal history of transient ischemic attack (TIA), and cerebral infarction without residual deficits; M19.90 Unspecified osteoarthritis, unspecified site; K21.9 Gastro-esophageal reflux disease without esophagitis; Z20.822 Contact with and (suspected) exposure to COVID-19; Z79.82 Long term (current) use of aspirin; Z79.84 Long term (current) use of oral hypoglycemic drugs; Z79.899 Other long term (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; F39 Unspecified mood [affective] disorder

== ENCOUNTER 2021-11-08 13:34 | Inpatient (IN) | payer MEDICARE ==
[~2021-11-08] VITALS: Ht 162.6 cm; Wt 86.0 kg
[~2021-11-08 13:34] MED LIST changes: +ATOR1TAB19 PO; +FLUO1TAB3 PO
[2021-11-08] MEDS ORDERED: DEXTROSE 50% 50 ML SYRINGE IV STA ×2 (14:04→18:43)
[2021-11-08] MEDS ORDERED: DEXTROSE 50% 50 ML SYRINGE As Ordered ONE (14:05)
[2021-11-08 15:19] LABS: BASO % 0.3 % (0.0-1.0); EOS # 0.3 10^3/uL (0.0-0.5); HEMATOCRIT 38.6 % (36.0-47.0); HEMOGLOBIN 12.6 g/dl (12.0-15.5); LYMPH # 1.4 10^3/uL (1.5-5.0); LYMPH % 15.7 % (24.0-44.0); MEAN CORPUSCULAR HEMOGLOBIN 28.6 pg (27.0-33.0); MEAN CORPUSCULAR HGB CONC 32.6 g/dl (32.0-36.5); MEAN CORPUSCULAR VOLUME 87.5 fl (80.0-96.0); MONO # 0.7 10^3/uL (0.0-0.8); MONO % 7.1 % (2.0-8.0); NEUTROPHILS # 6.7 10^3/uL (1.5-8.5); NEUTROPHILS % 73.4 % (36.0-66.0); PLATELET COUNT, AUTOMATED 288 10^3/uL (150-450); RED BLOOD COUNT 4.41 10^6/uL (4.00-5.40); WHITE BLOOD COUNT 9.1 10^3/uL (4.0-10.0)
[2021-11-08 15:45] LABS: CK-MB VALUE MASS 1.6 NG/ML (<3.6)
[2021-11-08 15:54] LABS: ALBUMIN 3.4 GM/DL (3.2-5.2); ALT/SGPT 17 U/L (12-78); BILIRUBIN,DIRECT 0.1 MG/DL (0.0-0.2); BILIRUBIN,TOTAL 0.2 MG/DL (0.2-1.0); BLOOD UREA NITROGEN 35 MG/DL (7-18); CALCIUM LEVEL 9.5 MG/DL (8.8-10.2); CARBON DIOXIDE LEVEL 29 MEQ/L (21-32); CHLORIDE LEVEL 101 MEQ/L (98-107); CREATININE FOR GFR 1.56 MG/DL (0.55-1.30); ETHYL ALCOHOL (ETHANOL) < 0.003 % (0.000-0.010); GLOMERULAR FILTRATION RATE 34.9 (>39); GLUCOSE, FASTING 119 MG/DL (70-100); POTASSIUM SERUM 3.8 MEQ/L (3.5-5.1); SODIUM LEVEL 139 MEQ/L (136-145)
[2021-11-08 17:01] LABS: CK-MB VALUE MASS 1.6 NG/ML (<3.6); MB/CK RELATIVE INDEX 0.68 (< OR =4)
[2021-11-08] MEDS ORDERED: cefTRIAXone SOD 1 GM in D5W MINI-BAG PLUS 50 ML IV ONE (18:45)
[2021-11-08 18:53] LABS: CK-MB VALUE MASS 1.9 NG/ML (<3.6); MB/CK RELATIVE INDEX 2.79 (< OR =4)
[2021-11-08] MEDS ORDERED: D5W/0.45% SODIUM CHLORIDE 1,000 ML IV SCH ×3 (19:15→22:35)
[2021-11-08 19:37] LABS: RSV AMPLIFICATION NEGATIVE (NEGATIVE)
[2021-11-08] MEDS ORDERED: ACETAMINOPHEN TAB 650MG DOSE (2X325MG) PO PRN (20:00)
[2021-11-08] MEDS ORDERED: MOM 30ML SUSPENSION UDC PO PRN (20:00)
[2021-11-08] MEDS ORDERED: DEXTROSE 50% 50 ML SYRINGE IV PRN (20:00)
[2021-11-08] MEDS ORDERED: GLUCOSE 4GM CHEW TABLET PO PRN (20:00)
[2021-11-08] MEDS ORDERED: MAALOX 30 ML SUSP *UDC PO PRN (20:00)
[2021-11-08] MEDS ORDERED: GLUCAGON INJ 1MG VIAL SC PRN (20:00)
[2021-11-08] MEDS ORDERED: FURO20TA2 PO (20:41)
[2021-11-08] MEDS ORDERED: HOME MED LIST COMPLETE! XX SCH (20:45)
[2021-11-08] MEDS ORDERED: D10W/0.45% SODIUM CHLORIDE 1,000 ML IV SCH (21:55)
[2021-11-08] MEDS ORDERED: MONTELUKAST 10 MG TAB PO PRN (22:00)
[2021-11-08 22:38] VITALS: BP 146/73
[2021-11-08 23:10] LABS: BASO % 0.4 % (0.0-1.0); EOS # 0.5 10^3/uL (0.0-0.5); EOS % 5.7 % (0.0-3.0); HEMOGLOBIN 12.3 g/dl (12.0-15.5); LYMPH % 21.6 % (24.0-44.0); MEAN CORPUSCULAR HEMOGLOBIN 28.4 pg (27.0-33.0); MEAN CORPUSCULAR HGB CONC 32.4 g/dl (32.0-36.5); MEAN CORPUSCULAR VOLUME 87.8 fl (80.0-96.0); MONO # 0.6 10^3/uL (0.0-0.8); MONO % 6.4 % (2.0-8.0); NEUTROPHILS # 6.1 10^3/uL (1.5-8.5); NEUTROPHILS % 65.5 % (36.0-66.0); PLATELET COUNT, AUTOMATED 307 10^3/uL (150-450); RED BLOOD COUNT 4.33 10^6/uL (4.00-5.40); WHITE BLOOD COUNT 9.3 10^3/uL (4.0-10.0)
[2021-11-08] MEDS: FAMOTIDINE 20 MG TAB PO SCH (23:13)
[2021-11-08] MEDS: GABAPENTIN 300 MG CAP PO SCH (23:13)
[2021-11-08] MEDS: HEPARIN SOD (PORCINE) 5000UNITS/ML 1ML VIAL/SYRINGE SC SCH (23:13)
[2021-11-08 23:40] LABS: ALBUMIN 3.4 GM/DL (3.2-5.2); BILIRUBIN,TOTAL 0.2 MG/DL (0.2-1.0); CALCIUM LEVEL 9.3 MG/DL (8.8-10.2); CREATININE FOR GFR 1.47 MG/DL (0.55-1.30); GLOMERULAR FILTRATION RATE 37.4 (>39); MAGNESIUM LEVEL 2.1 MG/DL (1.8-2.4); POTASSIUM SERUM 3.5 MEQ/L (3.5-5.1); TOTAL PROTEIN 6.9 GM/DL (6.4-8.2)
[2021-11-09] MEDS ORDERED: D10W/0.45% SODIUM CHLORIDE 1,000 ML IV SCH (03:00)
[2021-11-09] MEDS: HEPARIN SOD (PORCINE) 5000UNITS/ML 1ML VIAL/SYRINGE SC SCH ×3 (04:59→22:25)
[2021-11-09 06:00] VITALS: BP 106/45
[2021-11-09 06:37] LABS: BASO # 0.1 10^3/uL (0.0-0.2); BASO % 0.5 % (0.0-1.0); EOS # 0.8 10^3/uL (0.0-0.5); HEMATOCRIT 38.9 % (36.0-47.0); HEMOGLOBIN 12.6 g/dl (12.0-15.5); LYMPH # 2.3 10^3/uL (1.5-5.0); LYMPH % 24.6 % (24.0-44.0); MEAN CORPUSCULAR HEMOGLOBIN 27.9 pg (27.0-33.0); MEAN CORPUSCULAR HGB CONC 32.4 g/dl (32.0-36.5); MEAN CORPUSCULAR VOLUME 86.3 fl (80.0-96.0); MONO # 0.7 10^3/uL (0.0-0.8); MONO % 7.2 % (2.0-8.0); NEUTROPHILS # 5.5 10^3/uL (1.5-8.5); NEUTROPHILS % 58.4 % (36.0-66.0); PLATELET COUNT, AUTOMATED 283 10^3/uL (150-450); RED BLOOD COUNT 4.51 10^6/uL (4.00-5.40); WHITE BLOOD COUNT 9.4 10^3/uL (4.0-10.0)
[2021-11-09 07:09] LABS: ALBUMIN 3.2 GM/DL (3.2-5.2); BILIRUBIN,TOTAL 0.3 MG/DL (0.2-1.0); CALCIUM LEVEL 9.1 MG/DL (8.8-10.2); CREATININE FOR GFR 1.33 MG/DL (0.55-1.30); MAGNESIUM LEVEL 2.1 MG/DL (1.8-2.4); POTASSIUM SERUM 3.7 MEQ/L (3.5-5.1); TOTAL PROTEIN 6.5 GM/DL (6.4-8.2)
[2021-11-09] MEDS: FENOFIBRATE 145MG TABLET (TRICOR) PO SCH (08:54)
[2021-11-09] MEDS: CLOPIDOGREL 75 MG TAB PO SCH (08:54)
[2021-11-09] MEDS: FLUoxetine 20MG CAP PO SCH (08:54)
[2021-11-09] MEDS: OMEPRAZOLE 20MG CAP PO SCH (08:54)
[2021-11-09] MEDS: POTASSIUM CHLORIDE 10MEQ SR TABLET PO SCH (08:54)
[2021-11-09] MEDS: GABAPENTIN 300 MG CAP PO SCH ×3 (08:54→22:24)
[2021-11-09] MEDS: ATORVASTATIN 10 MG TAB PO SCH (08:54)
[2021-11-09] MEDS: ASPIRIN 81MG ENTERIC TABLET PO SCH (08:54)
[2021-11-09] MEDS: FAMOTIDINE 20 MG TAB PO SCH ×2 (08:54→22:24)
[2021-11-09] MEDS ORDERED: FUROSEMIDE 20 MG TAB PO SCH (09:00)
[2021-11-09 09:18] VITALS: O2SAT 97
[2021-11-09 14:00] VITALS: BP 118/61
[2021-11-09] MEDS: metFORMIN (GLUCOPHAGE) 500MG TAB PO SCH (17:15)
[2021-11-09 22:00] VITALS: BP 100/46
[2021-11-09] MEDS ORDERED: NS 500 ML IV ONE (22:30)
[2021-11-09 23:33] VITALS: BP 123/65
[2021-11-10 01:58] VITALS: O2SAT 96
[2021-11-10 06:00] VITALS: BP 138/68
[2021-11-10] MEDS: HEPARIN SOD (PORCINE) 5000UNITS/ML 1ML VIAL/SYRINGE SC SCH ×2 (06:19→14:00)
[2021-11-10 09:11] LABS: CALCIUM LEVEL 9.1 MG/DL (8.8-10.2); CREATININE FOR GFR 1.36 MG/DL (0.55-1.30); GLOMERULAR FILTRATION RATE 40.9 (>39); POTASSIUM SERUM 4.2 MEQ/L (3.5-5.1)
[2021-11-10] MEDS: GABAPENTIN 300 MG CAP PO SCH (10:37)
[2021-11-10] MEDS: FAMOTIDINE 20 MG TAB PO SCH (10:37)
[2021-11-10] MEDS: ATORVASTATIN 10 MG TAB PO SCH (10:37)
[2021-11-10] MEDS: FLUoxetine 20MG CAP PO SCH (10:37)
[2021-11-10] MEDS: CLOPIDOGREL 75 MG TAB PO SCH (10:37)
[2021-11-10] MEDS: ASPIRIN 81MG ENTERIC TABLET PO SCH (10:37)
[2021-11-10] MEDS: metFORMIN (GLUCOPHAGE) 500MG TAB PO SCH (10:37)
[2021-11-10] MEDS: FENOFIBRATE 145MG TABLET (TRICOR) PO SCH (10:37)
[2021-11-10 10:38] VITALS: BP 138/68
[2021-11-10] MEDS: POTASSIUM CHLORIDE 10MEQ SR TABLET PO SCH (10:38)
[2021-11-10] MEDS: OMEPRAZOLE 20MG CAP PO SCH (10:38)
[2021-11-10] MEDS ORDERED: JARD1TAB PO (12:01)
[2021-11-10] MEDS ORDERED: FURO20TA2 PO (12:08)
== END 2021-11-10 15:31 | disposition home or self-care (01) | DRG 638 ==
LOC: M ED 13:34 → M ED INP 19:56 → ENRESERV 21:13 → M MSPAV 22:40
PROVIDERS: ADMIT Family Medicine; ATTEND Internal Medicine
DX: E11.649 Type 2 diabetes mellitus with hypoglycemia without coma (principal); I50.32 Chronic diastolic (congestive) heart failure; I11.0 Hypertensive heart disease with heart failure; Z86.73 Personal history of transient ischemic attack (TIA), and cerebral infarction without residual deficits; K21.9 Gastro-esophageal reflux disease without esophagitis; M19.90 Unspecified osteoarthritis, unspecified site; R53.1 Weakness; N17.9 Acute kidney failure, unspecified; F39 Unspecified mood [affective] disorder; Z20.822 Contact with and (suspected) exposure to COVID-19; Z79.82 Long term (current) use of aspirin; Z79.84 Long term (current) use of oral hypoglycemic drugs; Z79.899 Other long term (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; E11.42 Type 2 diabetes mellitus with diabetic polyneuropathy; E78.5 Hyperlipidemia, unspecified; R41.82 Altered mental status, unspecified

== ENCOUNTER → 2021-12-07 | Outpatient (CLI) | payer MEDICARE ==
[~2021-12-07] MED LIST changes: +JARD1TAB PO
== END ==
LOC: M RAD 10:26
PROVIDERS: ATTEND Nurse Practitioner Family
DX: M51.26 Other intervertebral disc displacement, lumbar region (principal); M54.17 Radiculopathy, lumbosacral region

== ENCOUNTER 2022-01-16 14:56 | Outpatient (RCR) | payer MEDICARE ==
[~2022-01-16 14:56] MED LIST changes: +NYST-13 TOP; -NYST10CR TOP
== END 2022-01-17 ==
LOC: M PT 14:56
PROVIDERS: ATTEND Physical Medicine & Rehabilitation
DX: M51.36 Other intervertebral disc degeneration, lumbar region (principal); M51.26 Other intervertebral disc displacement, lumbar region

== ENCOUNTER → 2022-07-19 | Outpatient (CLI) | payer MEDICARE ==
[2022-07-19 09:33] LABS: BASO # 0.1 10^3/uL (0.0-0.2); BASO % 0.6 % (0.0-1.0); EOS # 0.7 10^3/uL (0.0-0.5); EOS % 8.3 % (0.0-3.0); HEMATOCRIT 42.1 % (36.0-47.0); HEMOGLOBIN 13.3 g/dl (12.0-15.5); LYMPH # 1.8 10^3/uL (1.5-5.0); LYMPH % 22.4 % (24.0-44.0); MEAN CORPUSCULAR HEMOGLOBIN 28.7 pg (27.0-33.0); MEAN CORPUSCULAR HGB CONC 31.6 g/dl (32.0-36.5); MEAN CORPUSCULAR VOLUME 90.7 fl (80.0-96.0); MONO # 0.6 10^3/uL (0.0-0.8); MONO % 7.1 % (2.0-8.0); NEUTROPHILS % 61.2 % (36.0-66.0); PLATELET COUNT, AUTOMATED 374 10^3/uL (150-450); RED BLOOD COUNT 4.64 10^6/uL (4.00-5.40); WHITE BLOOD COUNT 8.2 10^3/uL (4.0-10.0)
[2022-07-19 09:46] LABS: ALBUMIN 3.4 G/DL (3.2-5.2); ALKALINE PHOSPHATASE 43 U/L (46-116); ALT/SGPT 20 U/L (7.0-40); AST/SGOT 21 U/L (<34); BILIRUBIN,TOTAL 0.4 MG/DL (0.3-1.2); BLOOD UREA NITROGEN 15 MG/DL (9-23); CALCIUM LEVEL 8.9 MG/DL (8.3-10.6); CARBON DIOXIDE LEVEL 23 MMOL/L (20-31); CHLORIDE LEVEL 108 MMOL/L (98-107); CHOLESTEROL LEVEL 193 MG/DL (<200); CHOLESTEROL RISK RATIO 5.18 (<5); CREATININE FOR GFR 0.87 MG/DL (0.55-1.30); GLOMERULAR FILTRATION RATE > 60.0 (>39); GLUCOSE, FASTING 160 MG/DL (74-106); HDL CHOLESTEROL 37.2 MG/DL (>40); MAGNESIUM LEVEL 1.7 MG/DL (1.8-2.4); NON-HDL-C 156 MG/DL; POTASSIUM SERUM 4.3 MMOL/L (3.5-5.1); SODIUM LEVEL 140 MMOL/L (136-145); THYROID STIMULATING HORMONE 2.147 uIU/ML (0.55-4.78)
[2022-07-19 10:23] LABS: LDL CHOLESTEROL 127.2 MG/DL (<100); TOTAL PROTEIN 6.7 G/DL (5.7-8.2); TRIGLYCERIDES LEVEL 143 MG/DL (<150)
[2022-07-19 10:25] LABS: HEMOGLOBIN A1c 7.4 % (4.0-6.0)
== END ==
LOC: M LAB 08:07
PROVIDERS: ATTEND Nurse Practitioner Family
DX: K21.9 Gastro-esophageal reflux disease without esophagitis (principal); E11.65 Type 2 diabetes mellitus with hyperglycemia; Z79.899 Other long term (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; E83.42 Hypomagnesemia; E78.00 Pure hypercholesterolemia, unspecified

== ENCOUNTER → 2022-08-13 | Outpatient (CLI) | payer MEDICARE ==
[2022-08-13 09:54] LABS: PLATELET COUNT, AUTOMATED 372 10^3/uL (150-450)
[2022-08-13 10:12] LABS: INR 1.01; PROTHROMBIN TIME 13.5 SECONDS (12.5-14.5)
[2022-08-13 10:13] LABS: PARTIAL THROMBOPLASTIN TIME 29.6 SECONDS (24.8-34.2)
== END ==
LOC: M LAB 09:05
PROVIDERS: ATTEND Physician Assistant Surgical
DX: M48.062 Spinal stenosis, lumbar region with neurogenic claudication (principal)

== ENCOUNTER → 2022-08-13 | Outpatient (CLI) | payer MEDICARE | LOC: M EKG 09:00 | PROVIDERS: ATTEND Registered Nurse | DX: Z01.818 Encounter for other preprocedural examination (principal); I44.0 Atrioventricular block, first degree ==

== ENCOUNTER 2022-10-02 17:05 | Observation (INO) | payer MEDICARE ==
[~2022-10-02] VITALS: Ht 162.6 cm; Wt 81.5 kg
[2022-10-02 18:37] LABS: BASO % 0.2 % (0.0-1.0); EOS % 0.2 % (0.0-3.0); HEMATOCRIT 42.5 % (36.0-47.0); HEMOGLOBIN 13.7 g/dl (12.0-15.5); LYMPH # 1.9 10^3/uL (1.5-5.0); MEAN CORPUSCULAR HEMOGLOBIN 28.1 pg (27.0-33.0); MEAN CORPUSCULAR HGB CONC 32.2 g/dl (32.0-36.5); MEAN CORPUSCULAR VOLUME 87.3 fl (80.0-96.0); MONO # 0.9 10^3/uL (0.0-0.8); NEUTROPHILS # 14.7 10^3/uL (1.5-8.5); PLATELET COUNT, AUTOMATED 375 10^3/uL (150-450); RED BLOOD COUNT 4.87 10^6/uL (4.00-5.40); WHITE BLOOD COUNT 17.7 10^3/uL (4.0-10.0)
[2022-10-02 19:00] LABS: HEMOGLOBIN A1c 7.7 % (4.0-6.0)
[2022-10-02 19:11] LABS: ALBUMIN 3.8 G/DL (3.2-5.2); ALKALINE PHOSPHATASE 67 U/L (46-116); ALT/SGPT 18 U/L (7.0-40); AST/SGOT 16 U/L (<34); BILIRUBIN,DIRECT < 0.1 MG/DL (<0.4); BILIRUBIN,TOTAL 0.3 MG/DL (0.3-1.2); BLOOD UREA NITROGEN 21 MG/DL (9-23); CALCIUM LEVEL 9.6 MG/DL (8.3-10.6); CARBON DIOXIDE LEVEL 27 MMOL/L (20-31); CHLORIDE LEVEL 104 MMOL/L (98-107); CREATININE FOR GFR 0.91 MG/DL (0.55-1.30); GLOMERULAR FILTRATION RATE > 60.0 (>39); GLUCOSE, FASTING 194 MG/DL (74-106); POTASSIUM SERUM 4.1 MMOL/L (3.5-5.1); SODIUM LEVEL 140 MMOL/L (136-145); TOTAL PROTEIN 7.1 G/DL (5.7-8.2)
[2022-10-02] MEDS ORDERED: LABETALOL 100MG/20ML VIAL IV STA (22:29)
[2022-10-02 23:36] LABS: RSV AMPLIFICATION NEGATIVE (NEGATIVE)
[2022-10-03] VITALS (7 sets, daily range): BP systolic 142–193; BP diastolic 70–88
[2022-10-03] MEDS ORDERED: ACETAMINOPHEN TAB 650MG DOSE (2X325MG) PO PRN (01:45)
[2022-10-03] MEDS ORDERED: GLUCAGON INJ 1MG VIAL SC PRN (01:45)
[2022-10-03] MEDS ORDERED: GLUCOSE 4GM CHEW TABLET PO PRN (01:45)
[2022-10-03] MEDS ORDERED: DEXTROSE 50% 50ML SYRINGE IV PRN (01:45)
[2022-10-03] MEDS ORDERED: ATOR1TAB21 PO (01:49)
[2022-10-03] MEDS ORDERED: SPIR-10 PO (01:49)
[2022-10-03] MEDS ORDERED: IBUP1TAB7 PO (01:49)
[2022-10-03] MEDS ORDERED: JARD1TAB3 PO (01:49)
[2022-10-03] MEDS ORDERED: HOME MED LIST COMPLETE! XX SCH (01:50)
[2022-10-03] MEDS ORDERED: MAALOX 30 ML SUSP *UDC PO ONE (02:00)
[2022-10-03] MEDS ORDERED: FOSFOMYCIN TROMETHAMINE 3 GM POWDER PACKET (MONUROL) PO ONE (02:00)
[2022-10-03 07:45] LABS: HEMATOCRIT 39.7 % (36.0-47.0); HEMOGLOBIN 12.8 g/dl (12.0-15.5); MEAN CORPUSCULAR HEMOGLOBIN 28.3 pg (27.0-33.0); MEAN CORPUSCULAR HGB CONC 32.2 g/dl (32.0-36.5); MEAN CORPUSCULAR VOLUME 87.8 fl (80.0-96.0); PLATELET COUNT, AUTOMATED 355 10^3/uL (150-450); RED BLOOD COUNT 4.52 10^6/uL (4.00-5.40); WHITE BLOOD COUNT 14.6 10^3/uL (4.0-10.0)
[2022-10-03 07:51] LABS: INR 1.05; PARTIAL THROMBOPLASTIN TIME 28.2 SECONDS (24.8-34.2); PROTHROMBIN TIME 13.9 SECONDS (12.5-14.5)
[2022-10-03 08:16] LABS: ALBUMIN 3.6 G/DL (3.2-5.2); ALKALINE PHOSPHATASE 57 U/L (46-116); ALT/SGPT 14 U/L (7.0-40); AST/SGOT 16 U/L (<34); BILIRUBIN,TOTAL 0.4 MG/DL (0.3-1.2); BLOOD UREA NITROGEN 18 MG/DL (9-23); CALCIUM LEVEL 8.8 MG/DL (8.3-10.6); CARBON DIOXIDE LEVEL 27 MMOL/L (20-31); CHLORIDE LEVEL 107 MMOL/L (98-107); CREATININE FOR GFR 0.87 MG/DL (0.55-1.30); GLOMERULAR FILTRATION RATE > 60.0 (>39); GLUCOSE, FASTING 160 MG/DL (74-106); POTASSIUM SERUM 3.2 MMOL/L (3.5-5.1); SODIUM LEVEL 141 MMOL/L (136-145); TOTAL PROTEIN 6.7 G/DL (5.7-8.2)
[2022-10-03] MEDS: ATORVASTATIN 20 MG TAB PO SCH (08:27)
[2022-10-03] MEDS: SPIRONOLACTONE 12.5MG PER 1/2 TABLET PO SCH (08:27)
[2022-10-03] MEDS: GABAPENTIN 300 MG CAP PO SCH ×3 (08:28→20:55)
[2022-10-03] MEDS: FLUoxetine 20MG CAP PO SCH (08:28)
[2022-10-03] MEDS: FAMOTIDINE 20 MG TAB PO SCH ×2 (08:28→20:55)
[2022-10-03] MEDS: CLOPIDOGREL 75 MG TAB PO SCH (08:28)
[2022-10-03] MEDS: ASPIRIN 81MG ENTERIC TABLET PO SCH (08:28)
[2022-10-03] MEDS: INSULIN LISPRO (NovoLOG) PER UNIT SC SCH ×4 (08:28→20:54)
[2022-10-03] MEDS: ENOXAPARIN 40MG/0.4ML SYRINGE (J1650 PER 10MG) SC SCH (08:28)
[2022-10-03] MEDS: FENOFIBRATE 145MG TABLET (TRICOR) PO SCH (11:05)
[2022-10-03] MEDS: NYSTATIN 100,000 UNITS/GM TOPICAL PWD 15GM TOP SCH ×3 (11:05→21:00)
[2022-10-03] MEDS: CLOTRIMAZOLE 1% VAG CR 45 GM TOP SCH ×2 (11:05→20:55)
[2022-10-03] MEDS ORDERED: POTASSIUM CHLORIDE 10MEQ SR TABLET PO ONE (12:00)
[2022-10-03 14:17] LABS: CREATININE,RANDOM URINE 35.3 MG/DL
[2022-10-03 14:21] LABS: TOTAL PROTEIN,RANDOM URINE 136.6 MG/DL (0.0-14.0)
[2022-10-03] MEDS ORDERED: hydrALAZINE 20MG/ML 1ML VIAL IV PRN (20:00)
[2022-10-03] MEDS: MONTELUKAST 10 MG TAB PO SCH (20:55)
[2022-10-03] MEDS ORDERED: CEFUROXIME 500 MG TAB PO SCH (21:00)
[2022-10-04] VITALS (7 sets, daily range): BP systolic 132–162; BP diastolic 64–88
[2022-10-04 07:04] LABS: HEMATOCRIT 42.5 % (36.0-47.0); HEMOGLOBIN 13.5 g/dl (12.0-15.5); MEAN CORPUSCULAR HEMOGLOBIN 28.1 pg (27.0-33.0); MEAN CORPUSCULAR HGB CONC 31.8 g/dl (32.0-36.5); MEAN CORPUSCULAR VOLUME 88.5 fl (80.0-96.0); PLATELET COUNT, AUTOMATED 339 10^3/uL (150-450); WHITE BLOOD COUNT 10.8 10^3/uL (4.0-10.0)
[2022-10-04 07:28] LABS: ALBUMIN 3.3 G/DL (3.2-5.2); ALKALINE PHOSPHATASE 60 U/L (46-116); ALT/SGPT 13 U/L (7.0-40); AST/SGOT 16 U/L (<34); BILIRUBIN,TOTAL 0.5 MG/DL (0.3-1.2); BLOOD UREA NITROGEN 14 MG/DL (9-23); CALCIUM LEVEL 8.4 MG/DL (8.3-10.6); CARBON DIOXIDE LEVEL 26 MMOL/L (20-31); CHLORIDE LEVEL 110 MMOL/L (98-107); CREATININE FOR GFR 0.86 MG/DL (0.55-1.30); GLOMERULAR FILTRATION RATE > 60.0 (>39); GLUCOSE, FASTING 157 MG/DL (74-106); POTASSIUM SERUM 3.9 MMOL/L (3.5-5.1); SODIUM LEVEL 143 MMOL/L (136-145); TOTAL PROTEIN 6.7 G/DL (5.7-8.2)
[2022-10-04] MEDS: FLUoxetine 20MG CAP PO SCH (08:49)
[2022-10-04] MEDS: FENOFIBRATE 145MG TABLET (TRICOR) PO SCH (08:49)
[2022-10-04] MEDS: GABAPENTIN 300 MG CAP PO SCH ×3 (08:49→21:56)
[2022-10-04] MEDS: CLOPIDOGREL 75 MG TAB PO SCH (08:49)
[2022-10-04] MEDS: FAMOTIDINE 20 MG TAB PO SCH ×2 (08:49→21:55)
[2022-10-04] MEDS: SPIRONOLACTONE 12.5MG PER 1/2 TABLET PO SCH (08:49)
[2022-10-04] MEDS: ASPIRIN 81MG ENTERIC TABLET PO SCH (08:49)
[2022-10-04] MEDS: ATORVASTATIN 20 MG TAB PO SCH (08:49)
[2022-10-04] MEDS: ENOXAPARIN 40MG/0.4ML SYRINGE (J1650 PER 10MG) SC SCH (08:49)
[2022-10-04] MEDS: NYSTATIN 100,000 UNITS/GM TOPICAL PWD 15GM TOP SCH ×2 (08:50→21:55)
[2022-10-04] MEDS: CLOTRIMAZOLE 1% VAG CR 45 GM TOP SCH ×2 (08:51→21:55)
[2022-10-04] MEDS: INSULIN LISPRO (NovoLOG) PER UNIT SC SCH ×4 (08:51→20:49)
[2022-10-04] MEDS ORDERED: amLODIPine 5 MG TAB PO SCH (09:00)
[2022-10-04] MEDS: hydroCHLOROthiazide 12.5 MG CAPSULE PO SCH (12:12)
[2022-10-04] MEDS: SPIRONOLACTONE 50 MG TAB PO SCH (16:52)
[2022-10-04] MEDS: MONTELUKAST 10 MG TAB PO SCH (21:55)
[2022-10-05 04:00] VITALS: BP 140/58
[2022-10-05 07:55] LABS: HEMATOCRIT 42.4 % (36.0-47.0); HEMOGLOBIN 13.6 g/dl (12.0-15.5); MEAN CORPUSCULAR HEMOGLOBIN 28.5 pg (27.0-33.0); MEAN CORPUSCULAR HGB CONC 32.1 g/dl (32.0-36.5); MEAN CORPUSCULAR VOLUME 88.7 fl (80.0-96.0); PLATELET COUNT, AUTOMATED 327 10^3/uL (150-450); RED BLOOD COUNT 4.78 10^6/uL (4.00-5.40); WHITE BLOOD COUNT 10.4 10^3/uL (4.0-10.0)
[2022-10-05 08:22] LABS: BILIRUBIN,TOTAL 0.5 MG/DL (0.3-1.2); CALCIUM LEVEL 8.4 MG/DL (8.3-10.6); CREATININE FOR GFR 1.02 MG/DL (0.55-1.30); GLOMERULAR FILTRATION RATE 56.9 (>39); POTASSIUM SERUM 3.9 MMOL/L (3.5-5.1); TOTAL PROTEIN 6.3 G/DL (5.7-8.2)
[2022-10-05 08:35] VITALS: BP 160/90
[2022-10-05] MEDS: INSULIN LISPRO (NovoLOG) PER UNIT SC SCH ×2 (08:47→12:29)
[2022-10-05] MEDS: ASPIRIN 81MG ENTERIC TABLET PO SCH (08:47)
[2022-10-05] MEDS: ENOXAPARIN 40MG/0.4ML SYRINGE (J1650 PER 10MG) SC SCH (08:47)
[2022-10-05] MEDS: CLOPIDOGREL 75 MG TAB PO SCH (08:47)
[2022-10-05] MEDS: FLUoxetine 20MG CAP PO SCH (08:47)
[2022-10-05] MEDS: FENOFIBRATE 145MG TABLET (TRICOR) PO SCH (08:47)
[2022-10-05] MEDS: hydroCHLOROthiazide 12.5 MG CAPSULE PO SCH (08:47)
[2022-10-05] MEDS: ATORVASTATIN 20 MG TAB PO SCH (08:47)
[2022-10-05] MEDS: FAMOTIDINE 20 MG TAB PO SCH (08:47)
[2022-10-05 08:48] VITALS: BP 160/90
[2022-10-05] MEDS: GABAPENTIN 300 MG CAP PO SCH (08:48)
[2022-10-05] MEDS: SPIRONOLACTONE 50 MG TAB PO SCH (08:52)
[2022-10-05] MEDS: NYSTATIN 100,000 UNITS/GM TOPICAL PWD 15GM TOP SCH (08:54)
[2022-10-05] MEDS: CLOTRIMAZOLE 1% VAG CR 45 GM TOP SCH (08:54)
[2022-10-05] MEDS ORDERED: lisinopriL 40MG TAB PO SCH (09:00)
[2022-10-05] MEDS ORDERED: ALDA50TA2 PO (10:43)
[2022-10-05] MEDS ORDERED: LISI40TA4 PO (10:43)
[2022-10-05] MEDS ORDERED: HYDR12CA PO (10:43)
[2022-10-05] MEDS ORDERED: AMLO1TAB25 PO (10:43)
[2022-10-05] MEDS ORDERED: ACET1TAB55 PO (10:47)
[2022-10-05 12:25] VITALS: BP 148/82
== END 2022-10-05 15:13 | disposition home or self-care (01) ==
LOC: M ED 17:05 → M ED INP 10-03 01:43 → INTOOBSV 10-03 01:43 → ENRESERV 10-03 09:06 → M MS4PR 10-03 09:15 → M PCU 10-04 18:15
PROVIDERS: ADMIT Internal Medicine; ATTEND Internal Medicine
DX: I16.0 Hypertensive urgency (principal); E11.21 Type 2 diabetes mellitus with diabetic nephropathy; N18.2 Chronic kidney disease, stage 2 (mild); B37.89 Other sites of candidiasis; Z86.73 Personal history of transient ischemic attack (TIA), and cerebral infarction without residual deficits; E78.5 Hyperlipidemia, unspecified; I12.9 Hypertensive chronic kidney disease with stage 1 through stage 4 chronic kidney disease, or unspecified chronic kidney disease; Z79.82 Long term (current) use of aspirin; Z79.899 Other long term (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; Z79.84 Long term (current) use of oral hypoglycemic drugs
CPT/HCPCS: 36415; 71046; 76775; 80048; 80053; 80076; 81001; 82570; 83036; 83605; 84156; 84484; 85025; 85027; 85610; 85730; 87040; 87086; 87631; 93005; 93975; 96372; 96374; 99284; G0378; J1650; J1815

== ENCOUNTER → 2022-10-18 | Outpatient (CLI) | payer MEDICARE ==
[~2022-10-18] MED LIST changes: +ACET1TAB55 PO; +ALDA50TA2 PO; +ATOR1TAB21 PO; +HYDR12CA PO; +JARD1TAB3 PO; +LISI40TA4 PO; +SPIR-10 PO
[2022-10-18 09:50] LABS: BASO # 0.1 10^3/uL (0.0-0.2); BASO % 0.5 % (0.0-1.0); EOS # 0.6 10^3/uL (0.0-0.5); EOS % 5.9 % (0.0-3.0); HEMATOCRIT 42.5 % (36.0-47.0); HEMOGLOBIN 13.5 g/dl (12.0-15.5); LYMPH % 19.9 % (24.0-44.0); MEAN CORPUSCULAR HEMOGLOBIN 28.1 pg (27.0-33.0); MEAN CORPUSCULAR HGB CONC 31.8 g/dl (32.0-36.5); MEAN CORPUSCULAR VOLUME 88.5 fl (80.0-96.0); MONO # 0.6 10^3/uL (0.0-0.8); NEUTROPHILS # 6.7 10^3/uL (1.5-8.5); NEUTROPHILS % 67.4 % (36.0-66.0); PLATELET COUNT, AUTOMATED 336 10^3/uL (150-450); WHITE BLOOD COUNT 9.9 10^3/uL (4.0-10.0)
[2022-10-18 10:04] LABS: HEMOGLOBIN A1c 7.9 % (4.0-6.0)
[2022-10-18 10:18] LABS: ALBUMIN 3.5 G/DL (3.2-5.2); BILIRUBIN,TOTAL 0.5 MG/DL (0.3-1.2); CALCIUM LEVEL 8.9 MG/DL (8.3-10.6); CREATININE FOR GFR 1.19 MG/DL (0.55-1.30); GLOMERULAR FILTRATION RATE 47.6 (>39); POTASSIUM SERUM 4.4 MMOL/L (3.5-5.1); TOTAL PROTEIN 6.7 G/DL (5.7-8.2)
== END ==
LOC: M LAB 09:03
PROVIDERS: ATTEND Registered Nurse
DX: I10 Essential (primary) hypertension (principal); E11.65 Type 2 diabetes mellitus with hyperglycemia; Z79.899 Other long term (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; Z01.818 Encounter for other preprocedural examination

== ENCOUNTER 2022-12-22 13:02 | Emergency (ER) | payer MEDICARE ==
[~2022-12-22] VITALS: Ht 162.6 cm; Wt 79.8 kg
[~2022-12-22 13:02] MED LIST changes: -K-TA10TA2 PO; +POTA-165 PO
[2022-12-22 13:03] VITALS: TEMP 97
[2022-12-22] MEDS ORDERED: ASPIRIN 81MG CHEW TABLET PO ONE (13:30)
[2022-12-22] MEDS: NITROGLYCERIN 0.4MG SUBL TABLET SL PRN ×2 (13:45→13:55)
[2022-12-22 13:51] LABS: BASO # 0.1 10^3/uL (0.0-0.2); BASO % 0.4 % (0.0-1.0); EOS # 0.2 10^3/uL (0.0-0.5); HEMATOCRIT 45.7 % (36.0-47.0); HEMOGLOBIN 14.8 g/dl (12.0-15.5); LYMPH % 6.2 % (24.0-44.0); MEAN CORPUSCULAR HGB CONC 32.4 g/dl (32.0-36.5); MEAN CORPUSCULAR VOLUME 86.4 fl (80.0-96.0); MONO # 0.5 10^3/uL (0.0-0.8); MONO % 3.2 % (2.0-8.0); NEUTROPHILS % 88.8 % (36.0-66.0); PLATELET COUNT, AUTOMATED 362 10^3/uL (150-450); RED BLOOD COUNT 5.29 10^6/uL (4.00-5.40); WHITE BLOOD COUNT 15.7 10^3/uL (4.0-10.0)
[2022-12-22 13:55] VITALS: BP 125/68
[2022-12-22] MEDS ORDERED: TICAGRELOR 90 MG TABLET (BRILINTA) PO ONE (13:55)
[2022-12-22] MEDS ORDERED: HEPARIN DRIP 25,000 UNITS in IV 1 EA IV SCH (13:55)
[2022-12-22] MEDS ORDERED: HEPARIN SOD (PORCINE) 5000UNITS/ML 1ML VIAL/SYRINGE IV ONE (13:55)
[2022-12-22 14:02] LABS: INR 1.01; PARTIAL THROMBOPLASTIN TIME 30.9 SECONDS (24.8-34.2); PROTHROMBIN TIME 13.5 SECONDS (12.5-14.5)
[2022-12-22 14:45] VITALS: BP 131/73; O2SAT 99
[2022-12-22 14:56] LABS: RSV AMPLIFICATION NEGATIVE (NEGATIVE)
[2022-12-22 15:27] LABS: CK-MB VALUE MASS 4.5 NG/ML (<3.6)
[2022-12-22 15:29] LABS: ALBUMIN 3.8 G/DL (3.2-5.2); BILIRUBIN,DIRECT 0.2 MG/DL (<0.4); BILIRUBIN,TOTAL 0.4 MG/DL (0.3-1.2); CALCIUM LEVEL 9.6 MG/DL (8.3-10.6); CREATININE FOR GFR 1.35 MG/DL (0.55-1.30); GLOMERULAR FILTRATION RATE 41.2 (>39); POTASSIUM SERUM 4.9 MMOL/L (3.5-5.1); TOTAL PROTEIN 7.6 G/DL (5.7-8.2)
[2022-12-22 15:31] LABS: FREE T4 1.22 NG/DL (0.89-1.76); THYROID STIMULATING HORMONE 2.08 uIU/ML (0.55-4.78)
[2022-12-22 15:45] LABS: MB/CK RELATIVE INDEX 5.84 (< OR =4)
== END 2022-12-22 15:00 | disposition short-term general hospital (02) ==
LOC: M ED 13:02
DX: I21.4 Non-ST elevation (NSTEMI) myocardial infarction (principal); K21.9 Gastro-esophageal reflux disease without esophagitis; I44.0 Atrioventricular block, first degree; I10 Essential (primary) hypertension; E78.5 Hyperlipidemia, unspecified; Z86.79 Personal history of other diseases of the circulatory system; Z79.02 Long term (current) use of antithrombotics/antiplatelets; Z79.82 Long term (current) use of aspirin; Z79.811 Long term (current) use of aromatase inhibitors; Z79.899 Other long term (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

== ENCOUNTER → 2023-02-08 | Outpatient (REF) | payer MEDICARE ==
[2023-02-08 12:11] LABS: ALBUMIN 3.7 G/DL (3.2-5.2); BILIRUBIN,TOTAL 0.5 MG/DL (0.3-1.2); CALCIUM LEVEL 9.1 MG/DL (8.3-10.6); CREATININE FOR GFR 1.15 MG/DL (0.55-1.30); GLOMERULAR FILTRATION RATE 49.5 (>39); POTASSIUM SERUM 3.2 MMOL/L (3.5-5.1); TOTAL PROTEIN 7.2 G/DL (5.7-8.2)
[2023-02-08 12:12] LABS: FOLATE 9.7 NG/ML (>5.4); THYROID STIMULATING HORMONE 1.826 uIU/ML (0.55-4.78)
[2023-02-08 13:01] LABS: HEMOGLOBIN A1c 8.5 % (4.0-6.0)
== END ==
LOC: M SHH 11:03
PROVIDERS: ATTEND Registered Nurse
DX: R53.83 Other fatigue (principal)

== ENCOUNTER → 2023-03-13 | Outpatient (CLI) | payer MEDICARE, MEDICAID | LOC: M WHC 07:26 | PROVIDERS: ATTEND Registered Nurse Community Health | DX: Z12.31 Encounter for screening mammogram for malignant neoplasm of breast (principal) ==

== ENCOUNTER 2023-04-19 23:57 | Emergency (ER) | payer MEDICARE, MEDICAID ==
[2023-04-19 23:57] VITALS: BP 151/75; TEMP 98.6; O2SAT 98
[2023-04-20 00:47] LABS: BASO % 0.4 % (0.0-1.0); EOS # 0.8 10^3/uL (0.0-0.5); EOS % 8.5 % (0.0-3.0); HEMATOCRIT 39.6 % (36.0-47.0); HEMOGLOBIN 12.9 g/dl (12.0-15.5); LYMPH # 2.1 10^3/uL (1.5-5.0); LYMPH % 21.4 % (24.0-44.0); MEAN CORPUSCULAR HEMOGLOBIN 28.7 pg (27.0-33.0); MEAN CORPUSCULAR HGB CONC 32.6 g/dl (32.0-36.5); MEAN CORPUSCULAR VOLUME 88.2 fl (80.0-96.0); MONO # 0.8 10^3/uL (0.0-0.8); MONO % 7.6 % (2.0-8.0); NEUTROPHILS # 6.1 10^3/uL (1.5-8.5); NEUTROPHILS % 61.7 % (36.0-66.0); PLATELET COUNT, AUTOMATED 361 10^3/uL (150-450); RED BLOOD COUNT 4.49 10^6/uL (4.00-5.40); WHITE BLOOD COUNT 9.8 10^3/uL (4.0-10.0)
[2023-04-20 01:11] LABS: ALBUMIN 3.3 G/DL (3.2-5.2); BILIRUBIN,TOTAL 0.3 MG/DL (0.3-1.2); CALCIUM LEVEL 8.8 MG/DL (8.3-10.6); CK-MB VALUE MASS 1.3 NG/ML (<3.6); CREATININE FOR GFR 1.03 MG/DL (0.55-1.30); GLOMERULAR FILTRATION RATE 56.2 (>39); MB/CK RELATIVE INDEX 1.31 (< OR =4); POTASSIUM SERUM 3.2 MMOL/L (3.5-5.1)
[2023-04-20 01:43] LABS: RSV AMPLIFICATION NEGATIVE (NEGATIVE)
[2023-04-20 02:51] LABS: CK-MB VALUE MASS 1.5 NG/ML (<3.6)
[2023-04-20 02:57] LABS: MB/CK RELATIVE INDEX 1.54 (< OR =4)
== END 2023-04-20 03:36 | disposition left against medical advice (07) ==
LOC: M ED 23:57
DX: Z53.21 Procedure and treatment not carried out due to patient leaving prior to being seen by health care provider (principal)

== ENCOUNTER → 2023-05-17 | Outpatient (CLI) | payer MEDICARE, MEDICAID | LOC: M RAD 12:41 | PROVIDERS: ATTEND Surgery | DX: L97.512 Non-pressure chronic ulcer of other part of right foot with fat layer exposed (principal); L97.522 Non-pressure chronic ulcer of other part of left foot with fat layer exposed; R68.89 Other general symptoms and signs; I73.9 Peripheral vascular disease, unspecified ==

== ENCOUNTER → 2023-07-26 | Outpatient (REF) | payer MEDICARE, MEDICAID ==
[~2023-07-26] MED LIST changes: -ASPI-161 PO; +ASPI-615 PO; +MONT5TAB7 PO; -SING5CHW23 PO
[2023-07-26 14:16] LABS: BLOOD UREA NITROGEN 22 MG/DL (9-23); CREATININE FOR GFR 0.88 MG/DL (0.55-1.30); GLOMERULAR FILTRATION RATE > 60.0 (>39)
== END ==
LOC: M SHH 13:33
PROVIDERS: ATTEND Physician Assistant
DX: I73.9 Peripheral vascular disease, unspecified (principal)

== ENCOUNTER → 2023-08-06 | Outpatient (CLI) | payer MEDICARE, MEDICAID ==
[~2023-08-06] MED LIST changes: +ISOVUE-370 76% 100ML VIAL As Ordered ONE
== END ==
LOC: M RAD 09:11
PROVIDERS: ATTEND Surgery Vascular Surgery
DX: I73.9 Peripheral vascular disease, unspecified (principal)
CPT/HCPCS: 75635; Q9967

== ENCOUNTER 2023-08-18 18:55 | Emergency (ER) | payer MEDICARE, MEDICAID ==
[~2023-08-18] VITALS: Ht 160 cm; Wt 78.8 kg
[~2023-08-18 18:55] MED LIST changes: -ISOVUE-370 76% 100ML VIAL As Ordered ONE
[2023-08-18 19:45] LABS: HEMATOCRIT 38.7 % (36.0-47.0); HEMOGLOBIN 12.5 g/dl (12.0-15.5); MEAN CORPUSCULAR HEMOGLOBIN 27.3 pg (27.0-33.0); MEAN CORPUSCULAR HGB CONC 32.3 g/dl (32.0-36.5); MEAN CORPUSCULAR VOLUME 84.5 fl (80.0-96.0); PLATELET COUNT, AUTOMATED 311 10^3/uL (150-450); RED BLOOD COUNT 4.58 10^6/uL (4.00-5.40); WHITE BLOOD COUNT 13.6 10^3/uL (4.0-10.0)
[2023-08-18 19:46] LABS: BASO # 0.1 10^3/uL (0.0-0.2); BASO % 0.4 % (0.0-1.0); EOS # 0.1 10^3/uL (0.0-0.5); EOS % 0.4 % (0.0-3.0); LYMPH # 0.7 10^3/uL (1.5-5.0); LYMPH % 5.4 % (24.0-44.0); MONO # 0.7 10^3/uL (0.0-0.8); MONO % 5.3 % (2.0-8.0)
[2023-08-18 20:07] LABS: BLOOD UREA NITROGEN 20 MG/DL (9-23); CALCIUM LEVEL 8.8 MG/DL (8.3-10.6); CARBON DIOXIDE LEVEL 24 MMOL/L (20-31); CHLORIDE LEVEL 107 MMOL/L (98-107); CREATININE FOR GFR 0.97 MG/DL (0.55-1.30); GLOMERULAR FILTRATION RATE > 60.0 (>39); GLUCOSE, FASTING 220 MG/DL (74-106); POTASSIUM SERUM 3.7 MMOL/L (3.5-5.1); SODIUM LEVEL 143 MMOL/L (136-145)
[2023-08-18 20:09] LABS: CPK CREATINE PHOSPHOKINASE 126 U/L (34-145); MB/CK RELATIVE INDEX 2.38 (< OR =4)
[2023-08-18 20:20] LABS: LIPASE 46 U/L (12-53)
[2023-08-18 20:23] LABS: ALBUMIN 3.5 G/DL (3.2-5.2); ALKALINE PHOSPHATASE 63 U/L (46-116); ALT/SGPT 16 U/L (7.0-40); AST/SGOT 20 U/L (<34); BILIRUBIN,DIRECT 0.3 MG/DL (<0.4); BILIRUBIN,TOTAL 1.1 MG/DL (0.3-1.2); TOTAL PROTEIN 7.1 G/DL (5.7-8.2)
[2023-08-18 20:59] LABS: INR 1.14; PARTIAL THROMBOPLASTIN TIME 28.8 SECONDS (24.8-34.2); PROTHROMBIN TIME 14.2 SECONDS (12.5-14.5)
[2023-08-18 21:15] LABS: MB/CK RELATIVE INDEX 2.34 (< OR =4)
[2023-08-18] MEDS ORDERED: HEPARIN SOD (PORCINE) 5000UNITS/ML 1ML VIAL/SYRINGE IV PRN (21:30)
[2023-08-18] MEDS: HEPARIN SOD (PORCINE) 5000UNITS/ML 1ML VIAL/SYRINGE IV ONE (22:03)
[2023-08-18] MEDS: HEPARIN DRIP 25,000 UNITS in IV 1 EA IV SCH (22:04)
[2023-08-18 22:15] VITALS: BP 137/79; TEMP 97.8; O2SAT 95
== END 2023-08-18 22:22 | disposition short-term general hospital (02) ==
LOC: M ED 18:55
DX: I21.4 Non-ST elevation (NSTEMI) myocardial infarction (principal); I20.0 Unstable angina; I44.0 Atrioventricular block, first degree; E11.9 Type 2 diabetes mellitus without complications; I10 Essential (primary) hypertension; E78.5 Hyperlipidemia, unspecified; I25.2 Old myocardial infarction; Z86.79 Personal history of other diseases of the circulatory system; Z79.82 Long term (current) use of aspirin; Z79.891 Long term (current) use of opiate analgesic; Z79.811 Long term (current) use of aromatase inhibitors; Z79.4 Long term (current) use of insulin; Z79.899 Other long term (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; Z79.01 Long term (current) use of anticoagulants

== ENCOUNTER 2023-11-13 12:32 | Emergency (ER) | payer MEDICARE, MEDICAID ==
[~2023-11-13] VITALS: Ht 160 cm; Wt 71.4 kg
[~2023-11-13 12:32] MED LIST changes: +FLUO-290 PO; -FLUO10CA18 PO
[2023-11-13] MEDS: MORPHINE 2 MG/ML 1ML VIAL IV ONE (13:15)
[2023-11-13 15:28] VITALS: O2SAT 98
[2023-11-13] MEDS ORDERED: HYDR-3713 PO (15:38)
[2023-11-13] MEDS ORDERED: ROLLMIS8 XX (15:43)
[2023-11-13 15:56] VITALS: BP 149/75; TEMP 98.2; O2SAT 97
== END 2023-11-13 15:57 | disposition home or self-care (01) ==
LOC: EDBD 12:32 → M ED 12:32
DX: S70.01XA Contusion of right hip, initial encounter (principal); S42.211A Unspecified displaced fracture of surgical neck of right humerus, initial encounter for closed fracture; W01.0XXA Fall on same level from slipping, tripping and stumbling without subsequent striking against object, initial encounter; M24.851 Other specific joint derangements of right hip, not elsewhere classified; E11.9 Type 2 diabetes mellitus without complications; I10 Essential (primary) hypertension; I25.2 Old myocardial infarction; K21.9 Gastro-esophageal reflux disease without esophagitis; Z86.79 Personal history of other diseases of the circulatory system; Y92.009 Unspecified place in unspecified non-institutional (private) residence as the place of occurrence of the external cause; Y93.89 Activity, other specified; Y99.9 Unspecified external cause status; Z79.82 Long term (current) use of aspirin; Z79.02 Long term (current) use of antithrombotics/antiplatelets; Z79.811 Long term (current) use of aromatase inhibitors; Z79.4 Long term (current) use of insulin; Z79.899 Other long term (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

== ENCOUNTER → 2023-11-15 | Outpatient (CLI) | payer MEDICARE, MEDICAID ==
[~2023-11-15] MED LIST changes: +HYDR-3713 PO; +ROLLMIS8 XX
== END ==
LOC: M SOG 08:31
PROVIDERS: ATTEND Orthopaedic Surgery
DX: S42.201A Unspecified fracture of upper end of right humerus, initial encounter for closed fracture (principal)

== ENCOUNTER → 2023-11-22 | Outpatient (CLI) | payer MEDICARE, MEDICAID | LOC: M SOG 09:26 | PROVIDERS: ATTEND Orthopaedic Surgery | DX: S42.351A Displaced comminuted fracture of shaft of humerus, right arm, initial encounter for closed fracture (principal); X58.XXXA Exposure to other specified factors, initial encounter; Y92.89 Other specified places as the place of occurrence of the external cause; Y93.89 Activity, other specified; Y99.8 Other external cause status ==

== ENCOUNTER → 2023-12-06 | Outpatient (CLI) | payer MEDICARE, MEDICAID | LOC: M SOG 13:06 | PROVIDERS: ATTEND Orthopaedic Surgery | DX: S42.211A Unspecified displaced fracture of surgical neck of right humerus, initial encounter for closed fracture (principal); Y93.9 Activity, unspecified; Y92.9 Unspecified place or not applicable ==

== ENCOUNTER → 2023-12-19 | Outpatient (CLI) | payer MEDICARE, MEDICAID | LOC: M RAD 17:25 | PROVIDERS: ATTEND Orthopaedic Surgery | DX: S42.211D Unspecified displaced fracture of surgical neck of right humerus, subsequent encounter for fracture with routine healing (principal); Y93.9 Activity, unspecified; Y92.9 Unspecified place or not applicable ==

== ENCOUNTER 2024-01-09 16:00 | Outpatient (RCR) | payer MEDICARE, MEDICAID | END 2024-01-18 | LOC: M PT 16:00 | PROVIDERS: ATTEND Orthopaedic Surgery | DX: S42.291P Other displaced fracture of upper end of right humerus, subsequent encounter for fracture with malunion (principal) ==

== ENCOUNTER 2024-01-22 14:34 | Outpatient (RCR) | payer MEDICARE, MEDICAID ==
[~2024-01-22 14:34] MED LIST changes: +GABA-1172 PO; -GABA-282 PO; +GLIP10TA15 PO; -GLIP10TA6 PO
== END 2024-02-17 ==
LOC: M PT 14:34
PROVIDERS: ATTEND Orthopaedic Surgery
DX: S42.291P Other displaced fracture of upper end of right humerus, subsequent encounter for fracture with malunion (principal)

== ENCOUNTER → 2024-01-23 | Outpatient (CLI) | payer MEDICARE, MEDICAID ==
[~2024-01-23] MED LIST changes: -GABA-1172 PO; +GABA-282 PO; -GLIP10TA15 PO; +GLIP10TA6 PO
== END ==
LOC: M SOG 07:58
PROVIDERS: ATTEND Orthopaedic Surgery
DX: Z53.9 Procedure and treatment not carried out, unspecified reason (principal)

== ENCOUNTER → 2024-01-24 | Outpatient (CLI) | payer MEDICARE, MEDICAID | LOC: M SOG 11:15 | PROVIDERS: ATTEND Orthopaedic Surgery | DX: S42.211P Unspecified displaced fracture of surgical neck of right humerus, subsequent encounter for fracture with malunion (principal) ==

== ENCOUNTER 2024-02-27 12:12 | Emergency (ER) | payer MEDICARE, MEDICAID ==
[~2024-02-27] VITALS: Ht 160 cm; Wt 76.7 kg
[~2024-02-27 12:12] MED LIST changes: +GABA-1172 PO; -GABA-282 PO; +GLIP10TA15 PO; -GLIP10TA6 PO
[2024-02-27 13:14] LABS: BASO % 0.5 % (0.0-1.0); EOS # 0.6 10^3/uL (0.0-0.5); EOS % 6.8 % (0.0-3.0); HEMATOCRIT 40.6 % (36.0-47.0); HEMOGLOBIN 13.1 g/dl (12.0-15.5); LYMPH # 1.9 10^3/uL (1.5-5.0); LYMPH % 23.4 % (24.0-44.0); MEAN CORPUSCULAR HEMOGLOBIN 26.6 pg (27.0-33.0); MEAN CORPUSCULAR HGB CONC 32.3 g/dl (32.0-36.5); MEAN CORPUSCULAR VOLUME 82.5 fl (80.0-96.0); MONO # 0.6 10^3/uL (0.0-0.8); MONO % 6.8 % (2.0-8.0); NEUTROPHILS % 62.3 % (36.0-66.0); PLATELET COUNT, AUTOMATED 292 10^3/uL (150-450); RED BLOOD COUNT 4.92 10^6/uL (4.00-5.40); WHITE BLOOD COUNT 8.1 10^3/uL (4.0-10.0)
[2024-02-27 13:28] LABS: INR 1.14; PARTIAL THROMBOPLASTIN TIME 32.4 SECONDS (24.8-34.2); PROTHROMBIN TIME 14.3 SECONDS (12.5-14.5)
[2024-02-27 13:29] LABS: CK-MB VALUE MASS 1.1 NG/ML (<3.6)
[2024-02-27 13:32] LABS: THYROID STIMULATING HORMONE 1.876 uIU/ML (0.55-4.78)
[2024-02-27 13:33] LABS: FREE T4 1.33 NG/DL (0.89-1.76)
[2024-02-27 13:35] LABS: LIPASE 45 U/L (12-53)
[2024-02-27 13:38] LABS: ALBUMIN 3.3 G/DL (3.2-5.2); ALKALINE PHOSPHATASE 89 U/L (46-116); ALT/SGPT 17 U/L (7.0-40); AST/SGOT 14 U/L (<34); BILIRUBIN,DIRECT 0.1 MG/DL (<0.4); BILIRUBIN,TOTAL 0.5 MG/DL (0.3-1.2); BLOOD UREA NITROGEN 21 MG/DL (9-23); CALCIUM LEVEL 9.5 MG/DL (8.3-10.6); CARBON DIOXIDE LEVEL 25 MMOL/L (20-31); CHLORIDE LEVEL 108 MMOL/L (98-107); CREATININE FOR GFR 0.91 MG/DL (0.55-1.30); GLOMERULAR FILTRATION RATE > 60.0 (>39); GLUCOSE, FASTING 177 MG/DL (74-106); POTASSIUM SERUM 3.9 MMOL/L (3.5-5.1); SODIUM LEVEL 144 MMOL/L (136-145); TOTAL PROTEIN 6.9 G/DL (5.7-8.2)
[2024-02-27 13:42] LABS: CPK CREATINE PHOSPHOKINASE 79 U/L (34-145); MB/CK RELATIVE INDEX 1.39 (< OR =4)
[2024-02-27 15:13] LABS: CK-MB VALUE MASS < 1.0 NG/ML (<3.6)
[2024-02-27 15:18] LABS: CPK CREATINE PHOSPHOKINASE 77 U/L (34-145); MB/CK RELATIVE INDEX 1.29 (< OR =4)
[2024-02-27] MEDS ORDERED: ISOVUE-370 76% 100ML VIAL As Ordered ONE (16:25)
[2024-02-27 18:01] VITALS: BP 192/108
[2024-02-27] MEDS: METOPROLOL TART 25 MG TABLET PO ONE (18:01)
[2024-02-27] MEDS: ALBUTEROL 90 MCG/ACT 8GM HFA INHALER INH ONE (18:05)
[2024-02-27] MEDS ORDERED: VENTAER INH (19:11)
[2024-02-27 19:27] VITALS: BP 162/75; TEMP 98.4; O2SAT 96
== END 2024-02-27 19:35 | disposition home or self-care (01) ==
LOC: M ED 12:12
DX: R91.1 Solitary pulmonary nodule (principal); J98.01 Acute bronchospasm; I44.0 Atrioventricular block, first degree; I25.2 Old myocardial infarction; Z86.79 Personal history of other diseases of the circulatory system; Z79.1 Long term (current) use of non-steroidal anti-inflammatories (NSAID); Z79.52 Long term (current) use of systemic steroids; Z79.811 Long term (current) use of aromatase inhibitors; Z79.4 Long term (current) use of insulin; Z79.899 Other long term (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
CPT/HCPCS: 36415; 71046; 71275; 80048; 80076; 82550; 82553; 83690; 83880; 84439; 84443; 84484; 85025; 85610; 85730; 87486; 87581; 87633; 87798; 93005; 93041; 94640; 94760; 99285; Q9967

== ENCOUNTER → 2024-03-06 | Outpatient (CLI) | payer MEDICARE, MEDICAID ==
[~2024-03-06] MED LIST changes: +VENTAER INH
== END ==
LOC: M SOG 07:20
PROVIDERS: ATTEND Orthopaedic Surgery
DX: S42.211P Unspecified displaced fracture of surgical neck of right humerus, subsequent encounter for fracture with malunion (principal)

== ENCOUNTER 2024-04-07 08:51 | Emergency (ER) | payer MEDICARE, MEDICAID ==
[~2024-04-07] VITALS: Ht 160 cm; Wt 78.6 kg
[2024-04-07 09:36] LABS: BASO % 0.4 % (0.0-1.0); EOS # 0.5 10^3/uL (0.0-0.5); HEMATOCRIT 39.4 % (36.0-47.0); HEMOGLOBIN 12.3 g/dl (12.0-15.5); LYMPH # 1.4 10^3/uL (1.5-5.0); MEAN CORPUSCULAR HEMOGLOBIN 26.9 pg (27.0-33.0); MEAN CORPUSCULAR HGB CONC 31.2 g/dl (32.0-36.5); MONO # 0.5 10^3/uL (0.0-0.8); MONO % 5.4 % (2.0-8.0); NEUTROPHILS # 7.3 10^3/uL (1.5-8.5); NEUTROPHILS % 74.9 % (36.0-66.0); PLATELET COUNT, AUTOMATED 316 10^3/uL (150-450); RED BLOOD COUNT 4.58 10^6/uL (4.00-5.40); WHITE BLOOD COUNT 9.8 10^3/uL (4.0-10.0)
[2024-04-07 10:01] LABS: CK-MB VALUE MASS 1.6 NG/ML (<3.6); LIPASE 45 U/L (12-53)
[2024-04-07 10:03] LABS: ALBUMIN 3.3 G/DL (3.2-5.2); ALKALINE PHOSPHATASE 84 U/L (35-104); ALT/SGPT 25 U/L (7.0-40); AST/SGOT 21 U/L (<34); BILIRUBIN,DIRECT 0.3 MG/DL (<0.4); BILIRUBIN,TOTAL 0.9 MG/DL (0.3-1.2); BLOOD UREA NITROGEN 19 MG/DL (9-23); CALCIUM LEVEL 8.9 MG/DL (8.3-10.6); CARBON DIOXIDE LEVEL 26 MMOL/L (20-31); CHLORIDE LEVEL 107 MMOL/L (98-107); CREATININE FOR GFR 0.84 MG/DL (0.55-1.30); GLOMERULAR FILTRATION RATE > 60.0 (>39); GLUCOSE, FASTING 217 MG/DL (74-106); POTASSIUM SERUM 3.8 MMOL/L (3.5-5.1); SODIUM LEVEL 141 MMOL/L (136-145)
[2024-04-07 10:10] LABS: CPK CREATINE PHOSPHOKINASE 90 U/L (34-145); MB/CK RELATIVE INDEX 1.77 (< OR =4)
[2024-04-07 10:16] LABS: INR 1.1; PROTHROMBIN TIME 14.5 SECONDS (12.5-14.5)
[2024-04-07 11:50] VITALS: O2SAT 93
[2024-04-07] MEDS ORDERED: LISI5TAB11 (12:18)
[2024-04-07] MEDS ORDERED: METO1TAB87 (12:18)
[2024-04-07 12:37] VITALS: BP 171/80
[2024-04-07] MEDS: lisinopriL 5 MG TAB PO ONE (12:37)
[2024-04-07] MEDS: METOPROLOL TART 25 MG TABLET PO ONE (12:37)
[2024-04-07 13:00] VITALS: BP 178/95; TEMP 97.1; O2SAT 93
== END 2024-04-07 13:13 | disposition home or self-care (01) ==
LOC: M ED 09:53
DX: J20.6 Acute bronchitis due to rhinovirus (principal); I44.0 Atrioventricular block, first degree; I25.2 Old myocardial infarction; E11.9 Type 2 diabetes mellitus without complications; I10 Essential (primary) hypertension; E78.5 Hyperlipidemia, unspecified; G47.33 Obstructive sleep apnea (adult) (pediatric); Z86.79 Personal history of other diseases of the circulatory system; Z79.1 Long term (current) use of non-steroidal anti-inflammatories (NSAID); Z79.52 Long term (current) use of systemic steroids; Z79.811 Long term (current) use of aromatase inhibitors; Z79.899 Other long term (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

== ENCOUNTER 2024-04-09 14:01 | Outpatient (RCR) | payer MEDICARE, MEDICAID ==
[~2024-04-09 14:01] MED LIST changes: +LISI5TAB11; +METO1TAB87
== END 2024-04-18 ==
LOC: M PT 14:01
PROVIDERS: ATTEND Orthopaedic Surgery
DX: S42.211P Unspecified displaced fracture of surgical neck of right humerus, subsequent encounter for fracture with malunion (principal)

== ENCOUNTER 2024-05-12 08:13 | Outpatient (RCR) | payer MEDICARE, MEDICAID | END 2024-05-19 | LOC: M PT 08:13 | PROVIDERS: ATTEND Orthopaedic Surgery | DX: S42.211P Unspecified displaced fracture of surgical neck of right humerus, subsequent encounter for fracture with malunion (principal) ==

== ENCOUNTER 2024-05-16 17:25 | Emergency (ER) | payer MEDICARE, MEDICAID ==
[~2024-05-16] VITALS: Ht 162.6 cm; Wt 77.3 kg
[2024-05-16 21:48] LABS: BASO # 0.1 10^3/uL (0.0-0.2); BASO % 0.6 % (0.0-1.0); EOS # 0.6 10^3/uL (0.0-0.5); EOS % 5.6 % (0.0-3.0); HEMATOCRIT 39.3 % (36.0-47.0); HEMOGLOBIN 12.5 g/dl (12.0-15.5); LYMPH # 2.3 10^3/uL (1.5-5.0); LYMPH % 23.1 % (24.0-44.0); MEAN CORPUSCULAR HEMOGLOBIN 27.5 pg (27.0-33.0); MEAN CORPUSCULAR HGB CONC 31.8 g/dl (32.0-36.5); MEAN CORPUSCULAR VOLUME 86.4 fl (80.0-96.0); MONO # 0.6 10^3/uL (0.0-0.8); MONO % 6.5 % (2.0-8.0); NEUTROPHILS # 6.3 10^3/uL (1.5-8.5); NEUTROPHILS % 63.9 % (36.0-66.0); PLATELET COUNT, AUTOMATED 281 10^3/uL (150-450); RED BLOOD COUNT 4.55 10^6/uL (4.00-5.40); WHITE BLOOD COUNT 9.8 10^3/uL (4.0-10.0)
[2024-05-16] MEDS ORDERED: ISOVUE-370 76% 100ML VIAL As Ordered ONE (21:50)
[2024-05-16 22:08] LABS: ALBUMIN 3.2 G/DL (3.2-5.2); BILIRUBIN,DIRECT 0.2 MG/DL (<0.4); BILIRUBIN,TOTAL 0.6 MG/DL (0.3-1.2)
[2024-05-16 23:16] VITALS: BP 150/90; TEMP 97; O2SAT 95
== END 2024-05-17 00:52 | disposition home or self-care (01) ==
LOC: M ED 17:25
DX: R13.10 Dysphagia, unspecified (principal); I25.2 Old myocardial infarction; E11.9 Type 2 diabetes mellitus without complications; I10 Essential (primary) hypertension; E78.5 Hyperlipidemia, unspecified; K21.9 Gastro-esophageal reflux disease without esophagitis; Z79.1 Long term (current) use of non-steroidal anti-inflammatories (NSAID); Z79.51 Long term (current) use of inhaled steroids; Z79.4 Long term (current) use of insulin; Z79.84 Long term (current) use of oral hypoglycemic drugs; Z79.899 Other long term (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
CPT/HCPCS: 36415; 70491; 80047; 80076; 83690; 85025; 87880; 99284; Q9967

== ENCOUNTER 2024-05-23 21:29 | Inpatient (IN) | payer MEDICARE, MEDICAID ==
[~2024-05-23] VITALS: Ht 160 cm; Wt 76.0 kg
[2024-05-23] MEDS: IPRATROPIUM 0.5MG/ALBUTEROL 2.5MG INH SOL UD 3ML (DUONEB) NEB ONE (22:19)
[2024-05-23] MEDS: IPRATROPIUM 0.5MG/ALBUTEROL 2.5MG INH SOL UD 3ML (DUONEB) NEB PRN (22:20)
[2024-05-23 22:51] LABS: VENOUS BASE EXCESS 1.8 (-2.0-2.0); VENOUS HCO3 28.6 MMOL/L (23.0-27.0); VENOUS O2 SATURATION 44.1 % (60.0-80.0); VENOUS PARTIAL PRESSURE CO2 53.9 mmHg (38.0-50.0); VENOUS PARTIAL PRESSURE O2 29.6 mmHg (30.0-50.0); VENOUS PH 7.342 UNITS (7.330-7.430); VENOUS STANDARD HCO3 24.8 MMOL/L; VENOUS TOTAL CO2 30.2 MMOL/L (24.0-28.0)
[2024-05-23 23:07] LABS: BASO # 0.1 10^3/uL (0.0-0.2); BASO % 0.5 % (0.0-1.0); EOS # 0.7 10^3/uL (0.0-0.5); EOS % 6.8 % (0.0-3.0); HEMATOCRIT 39.6 % (36.0-47.0); HEMOGLOBIN 12.4 g/dl (12.0-15.5); LYMPH % 20.3 % (24.0-44.0); MEAN CORPUSCULAR HEMOGLOBIN 27.1 pg (27.0-33.0); MEAN CORPUSCULAR HGB CONC 31.3 g/dl (32.0-36.5); MEAN CORPUSCULAR VOLUME 86.5 fl (80.0-96.0); MONO # 0.5 10^3/uL (0.0-0.8); MONO % 5.6 % (2.0-8.0); NEUTROPHILS # 6.4 10^3/uL (1.5-8.5); NEUTROPHILS % 66.5 % (36.0-66.0); PLATELET COUNT, AUTOMATED 331 10^3/uL (150-450); RED BLOOD COUNT 4.58 10^6/uL (4.00-5.40); WHITE BLOOD COUNT 9.6 10^3/uL (4.0-10.0)
[2024-05-23 23:23] LABS: ALKALINE PHOSPHATASE 93 U/L (35-104); ALT/SGPT 36 U/L (7.0-40); AST/SGOT 25 U/L (<34); BILIRUBIN,DIRECT 0.2 MG/DL (<0.4); BILIRUBIN,TOTAL 0.5 MG/DL (0.3-1.2); BLOOD UREA NITROGEN 18 MG/DL (9-23); CALCIUM LEVEL 9.2 MG/DL (8.3-10.6); CARBON DIOXIDE LEVEL 30 MMOL/L (20-31); CHLORIDE LEVEL 106 MMOL/L (98-107); CPK CREATINE PHOSPHOKINASE 166 U/L (34-145); CREATININE FOR GFR 0.97 MG/DL (0.55-1.30); GLOMERULAR FILTRATION RATE > 60.0 (>39); GLUCOSE, FASTING 203 MG/DL (74-106); POTASSIUM SERUM 3.6 MMOL/L (3.5-5.1); SODIUM LEVEL 143 MMOL/L (136-145)
[2024-05-23 23:40] LABS: PROCALCITONIN 0.05 ng/ml
[2024-05-24] MEDS: FUROSEMIDE 100MG/10ML VIAL IV ONE (00:21)
[2024-05-24 00:39] LABS: CK-MB VALUE MASS 2.4 NG/ML (<3.6)
[2024-05-24 00:43] LABS: MB/CK RELATIVE INDEX 1.45 (< OR =4)
[2024-05-24] MEDS ORDERED: MAALOX 30 ML SUSP *UDC PO PRN (03:40)
[2024-05-24] MEDS ORDERED: MOM 30ML SUSPENSION UDC PO PRN (03:40)
[2024-05-24] MEDS ORDERED: ACETAMINOPHEN 325 MG TAB PO PRN (03:40)
[2024-05-24] MEDS ORDERED: GLUCAGON INJ 1MG VIAL SC PRN (03:55)
[2024-05-24] MEDS ORDERED: GLUCOSE 4 GM CHEW PO PRN (03:55)
[2024-05-24] MEDS ORDERED: DEXTROSE 50% 50ML SYRINGE IV PRN (03:55)
[2024-05-24] MEDS: FUROSEMIDE 40MG/4ML VIAL IV SCH ×2 (04:00→10:52)
[2024-05-24] MEDS ORDERED: METF-838 PO (06:33)
[2024-05-24] MEDS ORDERED: GABA-1171 PO (06:33)
[2024-05-24] MEDS ORDERED: ATOR80TA59 PO (06:33)
[2024-05-24] MEDS ORDERED: DULO1CAP5 PO (06:33)
[2024-05-24] MEDS ORDERED: VENTAER INH (06:33)
[2024-05-24] MEDS ORDERED: MED REC IN PROGRESS XX SCH (06:35)
[2024-05-24] MEDS ORDERED: FUROSEMIDE 40MG/4ML VIAL IV SCH (08:00)
[2024-05-24] MEDS: INSULIN LISPRO (NovoLOG) PER UNIT SC SCH (08:15)
[2024-05-24] MEDS: DAPAGLIFLOZIN PROPANEDIOL 10MG TABLET (FARXIGA) PO SCH (08:16)
[2024-05-24] MEDS: DULoxetine 30MG CAPSULE (CYMBALTA) PO SCH (08:16)
[2024-05-24] MEDS: DOCUSATE SODIUM 100MG CAPSULE PO SCH (08:16)
[2024-05-24] MEDS: CLOPIDOGREL 75 MG TAB PO SCH (08:17)
[2024-05-24] MEDS: PANTOPRAZOLE 40MG VIAL IV SCH (08:18)
[2024-05-24] MEDS: HEPARIN SOD (PORCINE) 5000UNITS/ML 1ML VIAL/SYRINGE SC SCH (08:18)
[2024-05-24] MEDS ORDERED: FLUoxetine 10 MG CAP PO SCH (09:00)
[2024-05-24] MEDS ORDERED: GABAPENTIN 300 MG CAP PO SCH (09:00)
[2024-05-24] MEDS ORDERED: SPIRONOLACTONE 25 MG TAB PO SCH (09:00)
[2024-05-24] MEDS ORDERED: METOPROLOL TART 25 MG TABLET PO SCH (09:00)
[2024-05-24] MEDS ORDERED: IPRATROPIUM 0.5MG/ALBUTEROL 2.5MG INH SOL UD 3ML (DUONEB) NEB PRN (12:35)
[2024-05-24 13:42] LABS: MEAN CORPUSCULAR HEMOGLOBIN 26.8 pg (27.0-33.0); MEAN CORPUSCULAR HGB CONC 31.6 g/dl (32.0-36.5); PLATELET COUNT, AUTOMATED 312 10^3/uL (150-450); RED BLOOD COUNT 4.47 10^6/uL (4.00-5.40); WHITE BLOOD COUNT 8.1 10^3/uL (4.0-10.0)
[2024-05-24] MEDS: ASPIRIN 81MG ENTERIC TABLET PO SCH (13:56)
[2024-05-24] MEDS: ATORVASTATIN 20 MG TAB PO SCH (13:57)
[2024-05-24 14:14] LABS: CALCIUM LEVEL 8.4 MG/DL (8.3-10.6); CREATININE FOR GFR 1.05 MG/DL (0.55-1.30); GLOMERULAR FILTRATION RATE 54.8 (>39); POTASSIUM SERUM 3.5 MMOL/L (3.5-5.1)
[2024-05-24 16:15] VITALS: BP 110/79; TEMP 97.8; O2SAT 99
[2024-05-24 17:00] VITALS: O2SAT 96
[2024-05-24 18:00] VITALS: O2SAT 96
[2024-05-24 19:44] VITALS: BP 102/56; TEMP 98; O2SAT 94
[2024-05-24] MEDS: MONTELUKAST 10 MG TAB PO SCH (21:02)
[2024-05-24] MEDS: FAMOTIDINE 20 MG TAB PO SCH (21:03)
[2024-05-24] MEDS: GABAPENTIN 100 MG CAP PO SCH (21:03)
[2024-05-24 23:25] VITALS: BP 126/59; TEMP 97.8; O2SAT 96
[2024-05-25 03:14] VITALS: BP 152/87; TEMP 97.5; O2SAT 99
[2024-05-25 05:54] LABS: HEMATOCRIT 37.2 % (36.0-47.0); HEMOGLOBIN 11.7 g/dl (12.0-15.5); MEAN CORPUSCULAR HEMOGLOBIN 27.1 pg (27.0-33.0); MEAN CORPUSCULAR HGB CONC 31.5 g/dl (32.0-36.5); MEAN CORPUSCULAR VOLUME 86.1 fl (80.0-96.0); PLATELET COUNT, AUTOMATED 310 10^3/uL (150-450); RED BLOOD COUNT 4.32 10^6/uL (4.00-5.40); WHITE BLOOD COUNT 8.1 10^3/uL (4.0-10.0)
[2024-05-25 06:18] LABS: CALCIUM LEVEL 8.4 MG/DL (8.3-10.6); CHOLESTEROL RISK RATIO 4.5 (<5); CREATININE FOR GFR 1.14 MG/DL (0.55-1.30); GLOMERULAR FILTRATION RATE 49.9 (>39); HDL CHOLESTEROL 30.4 MG/DL (>40); LDL CHOLESTEROL 86.6 MG/DL (<100); NON-HDL-C 106.6 MG/DL; POTASSIUM SERUM 3.2 MMOL/L (3.5-5.1)
[2024-05-25 07:31] VITALS: BP 145/66; TEMP 97.3; O2SAT 93
[2024-05-25] MEDS: FUROSEMIDE 40MG/4ML VIAL IV SCH (08:54)
[2024-05-25] MEDS: POTASSIUM CHLORIDE 10MEQ SR TABLET PO ONE (09:00)
[2024-05-25] MEDS ORDERED: TORSEMIDE 20 MG TAB PO SCH (09:00)
[2024-05-25] MEDS ORDERED: BASA100I SC (09:15)
[2024-05-25] MEDS ORDERED: HOME MED LIST COMPLETE! XX SCH (09:15)
[2024-05-25 15:37] VITALS: BP 135/64; TEMP 97.6; O2SAT 98
[2024-05-25] MEDS: TORSEMIDE 20 MG TAB PO SCH (16:39)
[2024-05-25 19:33] VITALS: BP 152/72; TEMP 97.4; O2SAT 99
[2024-05-25 23:11] VITALS: BP 128/63; TEMP 97.9; O2SAT 98
[2024-05-26 03:56] VITALS: BP 128/58; TEMP 97.6; O2SAT 97
[2024-05-26 07:50] LABS: HEMOGLOBIN 13.5 g/dl (12.0-15.5); MEAN CORPUSCULAR HEMOGLOBIN 27.2 pg (27.0-33.0); MEAN CORPUSCULAR HGB CONC 31.4 g/dl (32.0-36.5); MEAN CORPUSCULAR VOLUME 86.5 fl (80.0-96.0); PLATELET COUNT, AUTOMATED 359 10^3/uL (150-450); RED BLOOD COUNT 4.97 10^6/uL (4.00-5.40); WHITE BLOOD COUNT 7.7 10^3/uL (4.0-10.0)
[2024-05-26 08:14] LABS: BILIRUBIN,TOTAL 0.7 MG/DL (0.3-1.2); CALCIUM LEVEL 8.9 MG/DL (8.3-10.6); CREATININE FOR GFR 1.07 MG/DL (0.55-1.30); GLOMERULAR FILTRATION RATE 53.7 (>39); POTASSIUM SERUM 3.7 MMOL/L (3.5-5.1); TOTAL PROTEIN 6.9 G/DL (5.7-8.2)
[2024-05-26 08:25] VITALS: BP 156/74; TEMP 97.9; O2SAT 96
[2024-05-26 08:40] VITALS: BP 156/74
[2024-05-26] MEDS ORDERED: TORS20TA2 PO (13:14)
[2024-05-26] MEDS ORDERED: LISI10TA22 PO (13:14)
[2024-05-26] MEDS ORDERED: COLA100C5 PO (13:14)
== END 2024-05-26 16:20 | disposition home or self-care (01) | DRG 291 ==
LOC: M ED 21:29 → M ED INP 05-24 02:08 → M PCU 05-24 16:10
PROVIDERS: ADMIT Student in an Organized Health Care Education/Training Program; ATTEND Internal Medicine
DX: I11.0 Hypertensive heart disease with heart failure (principal); J96.01 Acute respiratory failure with hypoxia; I50.33 Acute on chronic diastolic (congestive) heart failure; E87.1 Hypo-osmolality and hyponatremia; J45.909 Unspecified asthma, uncomplicated; I25.10 Atherosclerotic heart disease of native coronary artery without angina pectoris; E78.5 Hyperlipidemia, unspecified; I25.2 Old myocardial infarction; Z95.1 Presence of aortocoronary bypass graft; Z95.5 Presence of coronary angioplasty implant and graft; E11.40 Type 2 diabetes mellitus with diabetic neuropathy, unspecified; E11.51 Type 2 diabetes mellitus with diabetic peripheral angiopathy without gangrene; E87.6 Hypokalemia; Z86.73 Personal history of transient ischemic attack (TIA), and cerebral infarction without residual deficits; Z95.2 Presence of prosthetic heart valve; Z79.899 Other long term (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; Z79.82 Long term (current) use of aspirin

== ENCOUNTER → 2024-05-25 | Outpatient (CLI) | payer MEDICARE, MEDICAID ==
[~2024-05-25] MED LIST changes: +ACETAMINOPHEN 325 MG TAB PO PRN; +ASPIRIN 81MG CHEW TABLET PO SCH; +ATOR80TA59 PO; +ATORVASTATIN 20 MG TAB PO SCH; +BASA100I SC; +CLOPIDOGREL 75 MG TAB PO SCH; +COLA100C5 PO; +DAPAGLIFLOZIN PROPANEDIOL 10MG TABLET (FARXIGA) PO SCH; +DEXTROSE 50% 50ML SYRINGE IV PRN; +DOCUSATE SODIUM 100MG CAPSULE PO SCH; +DULO1CAP5 PO; +FLUoxetine 20MG CAP PO SCH; +FUROSEMIDE 40MG/4ML VIAL IV SCH; +GABAPENTIN 300 MG CAP PO SCH; +GLUCAGON INJ 1MG VIAL SC PRN; +GLUCOSE 4 GM CHEW PO PRN; +HEPARIN SOD (PORCINE) 5000UNITS/ML 1ML VIAL/SYRINGE SC SCH; +INSULIN LISPRO (NovoLOG) PER UNIT SC SCH; +LISI10TA22 PO; +MAALOX 30 ML SUSP *UDC PO PRN; +METF-838 PO; +METOPROLOL TART 25 MG TABLET PO SCH; +MOM 30ML SUSPENSION UDC PO PRN; +NITROGLYCERIN 0.4MG SUBL TABLET SL PRN; +PANTOPRAZOLE 40MG VIAL IV SCH; +TORS20TA2 PO
== END ==
LOC: M SOG 07:57
PROVIDERS: ATTEND Orthopaedic Surgery
DX: M25.512 Pain in left shoulder (principal)

== ENCOUNTER → 2024-05-29 | Outpatient (CLI) | payer MEDICARE, MEDICAID ==
[~2024-05-29] MED LIST changes: -ACETAMINOPHEN 325 MG TAB PO PRN; -ASPIRIN 81MG CHEW TABLET PO SCH; -ATORVASTATIN 20 MG TAB PO SCH; -CLOPIDOGREL 75 MG TAB PO SCH; -DAPAGLIFLOZIN PROPANEDIOL 10MG TABLET (FARXIGA) PO SCH; -DEXTROSE 50% 50ML SYRINGE IV PRN; -DOCUSATE SODIUM 100MG CAPSULE PO SCH; -FLUoxetine 20MG CAP PO SCH; -FUROSEMIDE 40MG/4ML VIAL IV SCH; -GABAPENTIN 300 MG CAP PO SCH; -GLUCAGON INJ 1MG VIAL SC PRN; -GLUCOSE 4 GM CHEW PO PRN; -HEPARIN SOD (PORCINE) 5000UNITS/ML 1ML VIAL/SYRINGE SC SCH; -INSULIN LISPRO (NovoLOG) PER UNIT SC SCH; -MAALOX 30 ML SUSP *UDC PO PRN; -METOPROLOL TART 25 MG TABLET PO SCH; -MOM 30ML SUSPENSION UDC PO PRN; -NITROGLYCERIN 0.4MG SUBL TABLET SL PRN; -PANTOPRAZOLE 40MG VIAL IV SCH
== END ==
LOC: M SOG 07:50
PROVIDERS: ATTEND Orthopaedic Surgery
DX: M25.512 Pain in left shoulder (principal); M25.511 Pain in right shoulder; S42.211P Unspecified displaced fracture of surgical neck of right humerus, subsequent encounter for fracture with malunion; Y93.9 Activity, unspecified; Y92.9 Unspecified place or not applicable

== ENCOUNTER → 2024-06-01 | Outpatient (CLI) | payer MEDICARE, MEDICAID ==
[2024-06-01 19:37] LABS: BLOOD UREA NITROGEN 22 MG/DL (9-23); CALCIUM LEVEL 8.7 MG/DL (8.3-10.6); CARBON DIOXIDE LEVEL 30 MMOL/L (20-31); CHLORIDE LEVEL 102 MMOL/L (98-107); CREATININE FOR GFR 0.95 MG/DL (0.55-1.30); GLOMERULAR FILTRATION RATE > 60.0 (>39); GLUCOSE, FASTING 118 MG/DL (74-106); POTASSIUM SERUM 3.1 MMOL/L (3.5-5.1); SODIUM LEVEL 140 MMOL/L (136-145)
== END ==
LOC: M LAB 17:25
PROVIDERS: ATTEND Internal Medicine Cardiovascular Disease
DX: I25.10 Atherosclerotic heart disease of native coronary artery without angina pectoris (principal)

== ENCOUNTER 2024-06-12 00:43 | Inpatient (IN) | payer MEDICARE, MEDICAID ==
[~2024-06-12] VITALS: Ht 160 cm; Wt 76.1 kg
[2024-06-12 01:35] LABS: VENOUS BASE EXCESS 1.2 (-2.0-2.0); VENOUS HCO3 26.7 MMOL/L (23.0-27.0); VENOUS O2 SATURATION 77.2 % (60.0-80.0); VENOUS PARTIAL PRESSURE CO2 45.5 mmHg (38.0-50.0); VENOUS PH 7.386 UNITS (7.330-7.430); VENOUS STANDARD HCO3 25.1 MMOL/L; VENOUS TOTAL CO2 28.1 MMOL/L (24.0-28.0)
[2024-06-12 01:37] LABS: BASO % 0.4 % (0.0-1.0); EOS # 0.2 10^3/uL (0.0-0.5); EOS % 1.5 % (0.0-3.0); HEMATOCRIT 37.4 % (36.0-47.0); HEMOGLOBIN 11.8 g/dl (12.0-15.5); LYMPH # 0.8 10^3/uL (1.5-5.0); MEAN CORPUSCULAR HEMOGLOBIN 26.6 pg (27.0-33.0); MEAN CORPUSCULAR HGB CONC 31.6 g/dl (32.0-36.5); MEAN CORPUSCULAR VOLUME 84.2 fl (80.0-96.0); MONO # 0.6 10^3/uL (0.0-0.8); MONO % 6.1 % (2.0-8.0); NEUTROPHILS # 8.2 10^3/uL (1.5-8.5); NEUTROPHILS % 83.6 % (36.0-66.0); PLATELET COUNT, AUTOMATED 283 10^3/uL (150-450); RED BLOOD COUNT 4.44 10^6/uL (4.00-5.40); WHITE BLOOD COUNT 9.8 10^3/uL (4.0-10.0)
[2024-06-12 02:11] LABS: LIPASE 42 U/L (12-53)
[2024-06-12 02:13] LABS: ALBUMIN 2.8 G/DL (3.2-5.2); ALKALINE PHOSPHATASE 77 U/L (35-104); ALT/SGPT 15 U/L (7.0-40); AST/SGOT 17 U/L (<34); BILIRUBIN,DIRECT 0.2 MG/DL (<0.4); BILIRUBIN,TOTAL 0.6 MG/DL (0.3-1.2); BLOOD UREA NITROGEN 22 MG/DL (9-23); CALCIUM LEVEL 8.5 MG/DL (8.3-10.6); CARBON DIOXIDE LEVEL 27 MMOL/L (20-31); CHLORIDE LEVEL 102 MMOL/L (98-107); CK-MB VALUE MASS < 1.0 NG/ML (<3.6); CPK CREATINE PHOSPHOKINASE 54 U/L (34-145); CREATININE FOR GFR 0.95 MG/DL (0.55-1.30); GLOMERULAR FILTRATION RATE > 60.0 (>39); GLUCOSE, FASTING 204 MG/DL (74-106); MB/CK RELATIVE INDEX 1.85 (< OR =4); POTASSIUM SERUM 3.7 MMOL/L (3.5-5.1); SODIUM LEVEL 139 MMOL/L (136-145); TOTAL PROTEIN 7.1 G/DL (5.7-8.2)
[2024-06-12 02:15] LABS: THYROID STIMULATING HORMONE 2.395 uIU/ML (0.55-4.78)
[2024-06-12] MEDS: FUROSEMIDE 100MG/10ML VIAL IV ONE (03:12)
[2024-06-12 03:47] LABS: CK-MB VALUE MASS < 1.0 NG/ML (<3.6)
[2024-06-12 03:49] LABS: CPK CREATINE PHOSPHOKINASE 57 U/L (34-145); MB/CK RELATIVE INDEX 1.75 (< OR =4)
[2024-06-12] MEDS: IPRATROPIUM 0.5MG/ALBUTEROL 2.5MG INH SOL UD 3ML (DUONEB) NEB ONE ×2 (04:20→04:26)
[2024-06-12] MEDS ORDERED: GLUCOSE 4 GM CHEW PO PRN (05:10)
[2024-06-12] MEDS ORDERED: MOM 30ML SUSPENSION UDC PO PRN (05:10)
[2024-06-12] MEDS ORDERED: GLUCAGON INJ 1MG VIAL SC PRN (05:10)
[2024-06-12] MEDS ORDERED: DEXTROSE 50% 50ML SYRINGE IV PRN (05:10)
[2024-06-12] MEDS: methylPREDNISolone 40MG 1ML VIAL IV SCH (06:38)
[2024-06-12 07:03] LABS: HEMATOCRIT 37.1 % (36.0-47.0); HEMOGLOBIN 11.7 g/dl (12.0-15.5); MEAN CORPUSCULAR HEMOGLOBIN 26.4 pg (27.0-33.0); MEAN CORPUSCULAR HGB CONC 31.5 g/dl (32.0-36.5); MEAN CORPUSCULAR VOLUME 83.7 fl (80.0-96.0); PLATELET COUNT, AUTOMATED 280 10^3/uL (150-450); RED BLOOD COUNT 4.43 10^6/uL (4.00-5.40); WHITE BLOOD COUNT 7.3 10^3/uL (4.0-10.0)
[2024-06-12 07:28] LABS: ALBUMIN 2.8 G/DL (3.2-5.2); BILIRUBIN,TOTAL 0.6 MG/DL (0.3-1.2); CALCIUM LEVEL 8.3 MG/DL (8.3-10.6); CREATININE FOR GFR 0.98 MG/DL (0.55-1.30); GLOMERULAR FILTRATION RATE 59.4 (>39); MAGNESIUM LEVEL 1.7 MG/DL (1.8-2.4); POTASSIUM SERUM 3.1 MMOL/L (3.5-5.1); TOTAL PROTEIN 6.8 G/DL (5.7-8.2)
[2024-06-12] MEDS: INSULIN LISPRO (NovoLOG) PER UNIT SC SCH ×2 (07:30→21:03)
[2024-06-12 08:05] VITALS: BP 179/86; TEMP 98.5; O2SAT 98
[2024-06-12] MEDS ORDERED: IPRATROPIUM 0.5MG/ALBUTEROL 2.5MG INH SOL UD 3ML (DUONEB) NEB PRN (08:20)
[2024-06-12] MEDS ORDERED: ISOVUE-370 76% 100ML VIAL As Ordered ONE (08:24)
[2024-06-12] MEDS ORDERED: DOCU100C16 PO (08:50)
[2024-06-12] MEDS ORDERED: TORS20TA2 PO (08:50)
[2024-06-12] MEDS ORDERED: LISI10TA22 PO (08:50)
[2024-06-12] MEDS: MAGNESIUM OXIDE 400MG TAB (MAG-OX) PO SCH (09:00)
[2024-06-12] MEDS ORDERED: METO1TAB87 PO (09:15)
[2024-06-12] MEDS ORDERED: POTA-298 PO (09:15)
[2024-06-12] MEDS ORDERED: HOME MED LIST COMPLETE! XX SCH (09:25)
[2024-06-12] MEDS: IPRATROPIUM 0.5MG/ALBUTEROL 2.5MG INH SOL UD 3ML (DUONEB) NEB SCH (10:14)
[2024-06-12] MEDS: POTASSIUM CHLORIDE 10% LIQ 20MEQ/15ML UDC PO ONE ×2 (10:39→14:22)
[2024-06-12] MEDS: MAG SULF 1GM/100ML (MAG RUN) 1 GM in IV 1 EA IV ONE (10:39)
[2024-06-12] MEDS: FUROSEMIDE 40MG/4ML VIAL IV SCH (10:40)
[2024-06-12] MEDS: ENOXAPARIN 40MG/0.4ML SYRINGE (J1650 PER 10MG) SC SCH (10:40)
[2024-06-12] MEDS: ADVAIR HFA 115/21MCG INHALER INH SCH (11:33)
[2024-06-12 11:40] VITALS: BP 166/83; TEMP 98.2; O2SAT 97
[2024-06-12] MEDS: CLOPIDOGREL 75 MG TAB PO SCH (12:39)
[2024-06-12] MEDS: guaiFENesin ER TABLET 600 MG TAB PO SCH (12:39)
[2024-06-12] MEDS: DULoxetine 30MG CAPSULE (CYMBALTA) PO SCH (12:39)
[2024-06-12] MEDS: METOPROLOL TART 25 MG TABLET PO SCH (12:39)
[2024-06-12] MEDS: FAMOTIDINE 20 MG TAB PO SCH (12:39)
[2024-06-12] MEDS: GABAPENTIN 100 MG CAP PO SCH (12:39)
[2024-06-12] MEDS: ASPIRIN 81MG ENTERIC TABLET PO SCH (12:40)
[2024-06-12] MEDS: DAPAGLIFLOZIN PROPANEDIOL 10MG TABLET (FARXIGA) PO SCH (12:40)
[2024-06-12] MEDS: ATORVASTATIN 20 MG TAB PO SCH (12:40)
[2024-06-12] MEDS: amLODIPine 5 MG TAB PO ONE (14:22)
[2024-06-12 15:31] VITALS: BP 121/66; TEMP 98.5; O2SAT 96
[2024-06-12 19:27] VITALS: BP 117/59; TEMP 97.9; O2SAT 93
[2024-06-12] MEDS: DOCUSATE SODIUM 100MG CAPSULE PO SCH (20:42)
[2024-06-12] MEDS: MONTELUKAST 10 MG TAB PO SCH (20:44)
[2024-06-12] MEDS: LEVEMIR (INSULIN DETEMIR) 1 UNITS/0.01ML SC SCH (21:03)
[2024-06-12 23:03] VITALS: BP 141/76; TEMP 98; O2SAT 94
[2024-06-13 03:33] VITALS: BP 142/75; TEMP 97; O2SAT 92
[2024-06-13 06:30] LABS: BASO % 0.1 % (0.0-1.0); EOS # 0.1 10^3/uL (0.0-0.5); EOS % 0.7 % (0.0-3.0); HEMATOCRIT 36.2 % (36.0-47.0); HEMOGLOBIN 11.6 g/dl (12.0-15.5); LYMPH # 0.7 10^3/uL (1.5-5.0); LYMPH % 7.5 % (24.0-44.0); MEAN CORPUSCULAR HEMOGLOBIN 26.7 pg (27.0-33.0); MEAN CORPUSCULAR VOLUME 83.2 fl (80.0-96.0); MONO # 0.4 10^3/uL (0.0-0.8); MONO % 4.2 % (2.0-8.0); NEUTROPHILS # 7.8 10^3/uL (1.5-8.5); NEUTROPHILS % 86.8 % (36.0-66.0); PLATELET COUNT, AUTOMATED 289 10^3/uL (150-450); RED BLOOD COUNT 4.35 10^6/uL (4.00-5.40)
[2024-06-13 06:57] LABS: CALCIUM LEVEL 8.9 MG/DL (8.3-10.6); CREATININE FOR GFR 1.11 MG/DL (0.55-1.30); GLOMERULAR FILTRATION RATE 51.4 (>39); MAGNESIUM LEVEL 2.4 MG/DL (1.8-2.4); POTASSIUM SERUM 4.2 MMOL/L (3.5-5.1)
[2024-06-13 07:38] VITALS: BP 150/70; TEMP 97.5; O2SAT 93
[2024-06-13 15:58] VITALS: BP 140/64; TEMP 98.2; O2SAT 94
[2024-06-13 18:00] VITALS: BP 132/71; TEMP 97.5; O2SAT 98
[2024-06-13 20:00] VITALS: BP 143/86; TEMP 96.8; O2SAT 94
[2024-06-13] MEDS: TORSEMIDE 20 MG TAB PO SCH (21:18)
[2024-06-13] MEDS: methylPREDNISolone 40MG 1ML VIAL IV SCH (21:19)
[2024-06-13] MEDS: ACETAMINOPHEN 325 MG TAB PO PRN (21:21)
[2024-06-14 04:00] VITALS: BP 140/86; TEMP 97.8; O2SAT 95
[2024-06-14 06:07] LABS: BASO % 0.1 % (0.0-1.0); EOS % 0.2 % (0.0-3.0); HEMATOCRIT 35.7 % (36.0-47.0); HEMOGLOBIN 11.4 g/dl (12.0-15.5); LYMPH # 0.5 10^3/uL (1.5-5.0); LYMPH % 3.1 % (24.0-44.0); MEAN CORPUSCULAR HEMOGLOBIN 26.6 pg (27.0-33.0); MEAN CORPUSCULAR HGB CONC 31.9 g/dl (32.0-36.5); MEAN CORPUSCULAR VOLUME 83.2 fl (80.0-96.0); MONO # 0.8 10^3/uL (0.0-0.8); MONO % 4.8 % (2.0-8.0); NEUTROPHILS # 15.9 10^3/uL (1.5-8.5); NEUTROPHILS % 90.9 % (36.0-66.0); PLATELET COUNT, AUTOMATED 311 10^3/uL (150-450); RED BLOOD COUNT 4.29 10^6/uL (4.00-5.40); WHITE BLOOD COUNT 17.4 10^3/uL (4.0-10.0)
[2024-06-14 06:29] LABS: CALCIUM LEVEL 8.4 MG/DL (8.3-10.6); CREATININE FOR GFR 1.12 MG/DL (0.55-1.30); GLOMERULAR FILTRATION RATE 50.9 (>39); MAGNESIUM LEVEL 2.2 MG/DL (1.8-2.4); POTASSIUM SERUM 4.1 MMOL/L (3.5-5.1)
[2024-06-14 08:42] VITALS: BP 140/86
[2024-06-14] MEDS ORDERED: PRED10TA2 PO (10:14)
[2024-06-14] MEDS ORDERED: MUCI600T31 PO (10:14)
[2024-06-14] MEDS ORDERED: FARX1TAB3 PO (10:14)
[2024-06-14] MEDS ORDERED: ADVA1AER8 INH (10:16)
[2024-06-14 12:00] VITALS: BP 142/81; TEMP 97; O2SAT 92
[2024-06-14] MEDS ORDERED: NEBU1EAC78 MC (13:31)
[2024-06-14] MEDS ORDERED: ALBU2.5V10 NEB (13:31)
[2024-06-14] MEDS ORDERED: BREO1INH PO (15:12)
== END 2024-06-14 15:20 | disposition home health service (06) | DRG 291 ==
LOC: M ED 00:43 → EDBD 00:43 → M ED INP 05:08 → M PCU 07:47 → M MSPAV 06-13 17:13
PROVIDERS: ADMIT Student in an Organized Health Care Education/Training Program; ATTEND Internal Medicine
DX: I11.0 Hypertensive heart disease with heart failure (principal); J96.00 Acute respiratory failure, unspecified whether with hypoxia or hypercapnia; I50.33 Acute on chronic diastolic (congestive) heart failure; J45.901 Unspecified asthma with (acute) exacerbation; J98.11 Atelectasis; Q60.3 Renal hypoplasia, unilateral; J21.0 Acute bronchiolitis due to respiratory syncytial virus; E11.40 Type 2 diabetes mellitus with diabetic neuropathy, unspecified; E78.5 Hyperlipidemia, unspecified; I25.10 Atherosclerotic heart disease of native coronary artery without angina pectoris; Z95.1 Presence of aortocoronary bypass graft; E83.42 Hypomagnesemia; E87.6 Hypokalemia; Z86.73 Personal history of transient ischemic attack (TIA), and cerebral infarction without residual deficits; R91.8 Other nonspecific abnormal finding of lung field; I73.9 Peripheral vascular disease, unspecified; F41.9 Anxiety disorder, unspecified; F32.A Depression, unspecified; K21.9 Gastro-esophageal reflux disease without esophagitis; R10.9 Unspecified abdominal pain; Z79.82 Long term (current) use of aspirin; Z79.899 Other long term (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; Z79.4 Long term (current) use of insulin; Z88.8 Allergy status to other drugs, medicaments and biological substances

== ENCOUNTER → 2024-06-23 | Outpatient (CLI) | payer MEDICARE, MEDICAID ==
[~2024-06-23] MED LIST changes: +ADVA1AER8 INH; +ALBU2.5V10 NEB; +BREO1INH PO; +DOCU100C16 PO; +FARX1TAB3 PO; +METO1TAB87 PO; +MUCI600T31 PO; +NEBU1EAC78 MC; +POTA-298 PO; +PRED10TA2 PO
[2024-06-23 11:54] LABS: BASO # 0.1 10^3/uL (0.0-0.2); BASO % 0.2 % (0.0-1.0); EOS # 0.1 10^3/uL (0.0-0.5); EOS % 0.2 % (0.0-3.0); HEMOGLOBIN 13.9 g/dl (12.0-15.5); LYMPH # 0.6 10^3/uL (1.5-5.0); LYMPH % 2.7 % (24.0-44.0); MEAN CORPUSCULAR HEMOGLOBIN 26.2 pg (27.0-33.0); MEAN CORPUSCULAR HGB CONC 31.6 g/dl (32.0-36.5); MEAN CORPUSCULAR VOLUME 82.9 fl (80.0-96.0); MONO # 0.3 10^3/uL (0.0-0.8); MONO % 1.5 % (2.0-8.0); NEUTROPHILS # 20.7 10^3/uL (1.5-8.5); NEUTROPHILS % 94.5 % (36.0-66.0); PLATELET COUNT, AUTOMATED 473 10^3/uL (150-450); RED BLOOD COUNT 5.31 10^6/uL (4.00-5.40)
[2024-06-23 12:11] LABS: ALBUMIN 2.8 G/DL (3.2-5.2); BILIRUBIN,TOTAL 0.4 MG/DL (0.3-1.2); CALCIUM LEVEL 8.7 MG/DL (8.3-10.6); CREATININE FOR GFR 1.27 MG/DL (0.55-1.30); POTASSIUM SERUM 4.7 MMOL/L (3.5-5.1)
== END ==
LOC: M LAB 11:17
PROVIDERS: ATTEND Nurse Practitioner Acute Care
DX: I25.118 Atherosclerotic heart disease of native coronary artery with other forms of angina pectoris (principal)

== ENCOUNTER → 2024-07-07 | Outpatient (REF) | payer MEDICARE, MEDICAID ==
[2024-07-07 10:08] LABS: CREATININE FOR GFR 0.95 MG/DL (0.55-1.30); GLOMERULAR FILTRATION RATE > 60.0 (>39)
== END ==
LOC: M LAB REF 09:00
PROVIDERS: ATTEND Internal Medicine Interventional Cardiology
DX: N17.9 Acute kidney failure, unspecified (principal)

== ENCOUNTER 2024-08-13 02:55 | Observation (INO) | payer MEDICARE, MEDICAID ==
[~2024-08-13] VITALS: Ht 160 cm; Wt 71.3 kg
[~2024-08-13 02:55] MED LIST changes: +GLIP-318 PO; -GLIP5TAB20 PO
[2024-08-13] MEDS ORDERED: NITR0.4S14 PO (03:17)
[2024-08-13 03:29] LABS: BASO % 0.5 % (0.0-1.0); EOS # 0.3 10^3/uL (0.0-0.5); EOS % 3.6 % (0.0-3.0); HEMOGLOBIN 11.1 g/dl (12.0-15.5); LYMPH # 1.5 10^3/uL (1.5-5.0); LYMPH % 17.9 % (24.0-44.0); MEAN CORPUSCULAR HEMOGLOBIN 25.9 pg (27.0-33.0); MEAN CORPUSCULAR HGB CONC 30.8 g/dl (32.0-36.5); MEAN CORPUSCULAR VOLUME 83.9 fl (80.0-96.0); MONO # 0.5 10^3/uL (0.0-0.8); MONO % 6.1 % (2.0-8.0); NEUTROPHILS # 6.1 10^3/uL (1.5-8.5); NEUTROPHILS % 71.6 % (36.0-66.0); PLATELET COUNT, AUTOMATED 346 10^3/uL (150-450); RED BLOOD COUNT 4.29 10^6/uL (4.00-5.40); WHITE BLOOD COUNT 8.6 10^3/uL (4.0-10.0)
[2024-08-13 04:07] LABS: BLOOD UREA NITROGEN 17 MG/DL (9-23); CALCIUM LEVEL 8.3 MG/DL (8.3-10.6); CARBON DIOXIDE LEVEL 25 MMOL/L (20-31); CHLORIDE LEVEL 105 MMOL/L (98-107); CK-MB VALUE MASS 2.8 NG/ML (<3.6); CPK CREATINE PHOSPHOKINASE 92 U/L (34-145); CREATININE FOR GFR 0.94 MG/DL (0.55-1.30); GLOMERULAR FILTRATION RATE > 60.0 (>39); GLUCOSE, FASTING 157 MG/DL (74-106); MB/CK RELATIVE INDEX 3.04 (< OR =4); POTASSIUM SERUM 4.7 MMOL/L (3.5-5.1); SODIUM LEVEL 140 MMOL/L (136-145)
[2024-08-13] MEDS ORDERED: ISOVUE-370 76% 100ML VIAL As Ordered ONE (05:01)
[2024-08-13 05:03] LABS: CK-MB VALUE MASS 3.2 NG/ML (<3.6)
[2024-08-13 05:08] LABS: MB/CK RELATIVE INDEX 3.9 (< OR =4)
[2024-08-13 06:18] LABS: CK-MB VALUE MASS 2.1 NG/ML (<3.6)
[2024-08-13 06:28] LABS: MB/CK RELATIVE INDEX 3.13 (< OR =4)
[2024-08-13 07:40] LABS: CK-MB VALUE MASS 2.6 NG/ML (<3.6)
[2024-08-13 07:49] LABS: MB/CK RELATIVE INDEX 3.37 (< OR =4)
[2024-08-13] MEDS: FUROSEMIDE 40MG/4ML VIAL IV ONE (08:55)
[2024-08-13] MEDS ORDERED: ALBU2.5V10 NEB (09:46)
[2024-08-13] MEDS ORDERED: ACET-683 PO (09:49)
[2024-08-13] MEDS ORDERED: BREO1INH PO (11:02)
[2024-08-13] MEDS ORDERED: FARX1TAB3 PO (11:02)
[2024-08-13] MEDS ORDERED: TORS20TA2 PO (11:03)
[2024-08-13] MEDS ORDERED: HOME MED LIST COMPLETE! XX SCH (11:05)
[2024-08-13] MEDS ORDERED: GLUCOSE 4 GM CHEW PO PRN (12:50)
[2024-08-13] MEDS ORDERED: DEXTROSE 50% 50ML SYRINGE IV PRN (12:50)
[2024-08-13] MEDS ORDERED: GLUCAGON INJ 1MG VIAL SC PRN (12:50)
[2024-08-13] MEDS ORDERED: GABA-1171 PO (13:32)
[2024-08-13] MEDS: ATORVASTATIN 20 MG TAB PO SCH (14:16)
[2024-08-13] MEDS: ASPIRIN 81MG ENTERIC TABLET PO SCH (14:16)
[2024-08-13] MEDS: DULoxetine 30MG CAPSULE (CYMBALTA) PO SCH (14:16)
[2024-08-13] MEDS: CLOPIDOGREL 75 MG TAB PO SCH (14:17)
[2024-08-13] MEDS: FAMOTIDINE 20 MG TAB PO SCH (14:17)
[2024-08-13] MEDS: DAPAGLIFLOZIN PROPANEDIOL 10MG TABLET (FARXIGA) PO SCH (14:17)
[2024-08-13] MEDS: IPRATROPIUM 0.5MG/ALBUTEROL 2.5MG INH SOL UD 3ML (DUONEB) NEB SCH (15:15)
[2024-08-13] MEDS: FUROSEMIDE 40MG/4ML VIAL IV SCH (17:09)
[2024-08-13] MEDS: INSULIN LISPRO (NovoLOG) PER UNIT SC SCH ×2 (17:39→21:00)
[2024-08-13] MEDS: SYMBICORT 160/4.5MCG INHALER 6GM INH SCH (19:41)
[2024-08-13 20:26] VITALS: BP 157/80; TEMP 97.2; O2SAT 93
[2024-08-13] MEDS: METOPROLOL TART 25 MG TABLET PO SCH (21:01)
[2024-08-13] MEDS: GABAPENTIN 100 MG CAP PO SCH (21:01)
[2024-08-13] MEDS: MONTELUKAST 10 MG TAB PO SCH (21:02)
[2024-08-13] MEDS: ACETAMINOPHEN 500 MG TAB PO PRN (21:02)
[2024-08-13] MEDS: LanTUS (INSULIN GLARGINE INJ) 1 UNITS/0.01 ML SC SCH (21:03)
[2024-08-13] MEDS: ENOXAPARIN 40MG/0.4ML SYRINGE (J1650 PER 10MG) SC SCH (21:03)
[2024-08-14 04:31] VITALS: BP 140/65; TEMP 97; O2SAT 92
[2024-08-14 05:40] LABS: HEMATOCRIT 35.4 % (36.0-47.0); MEAN CORPUSCULAR HEMOGLOBIN 25.9 pg (27.0-33.0); MEAN CORPUSCULAR HGB CONC 31.1 g/dl (32.0-36.5); MEAN CORPUSCULAR VOLUME 83.5 fl (80.0-96.0); PLATELET COUNT, AUTOMATED 337 10^3/uL (150-450); RED BLOOD COUNT 4.24 10^6/uL (4.00-5.40); WHITE BLOOD COUNT 8.6 10^3/uL (4.0-10.0)
[2024-08-14 06:29] LABS: CALCIUM LEVEL 8.4 MG/DL (8.3-10.6); CREATININE FOR GFR 1.12 MG/DL (0.55-1.30); GLOMERULAR FILTRATION RATE 50.8 (>39); POTASSIUM SERUM 3.2 MMOL/L (3.5-5.1)
[2024-08-14] MEDS: KCL 10MEQ/100ML SWI (KRUN) 10 MEQ in IV 1 EA IV SCH (09:27)
[2024-08-14 09:30] VITALS: BP 148/83
[2024-08-14] MEDS: GABAPENTIN 100 MG CAP PO SCH (09:31)
[2024-08-14] MEDS: POTASSIUM CHLORIDE 10MEQ SR TABLET PO ONE (09:31)
[2024-08-14] MEDS ORDERED: TORS20TA2 PO (11:16)
[2024-08-14] MEDS ORDERED: ALBU2.5V10 NEB ×2 (11:22→11:32)
[2024-08-14] MEDS ORDERED: BREO1INH PO (11:22)
[2024-08-14 12:10] VITALS: BP 143/80
== END 2024-08-14 14:42 | disposition home health service (06) ==
LOC: M ED 02:55 → M ED INP 09:44 → M MSPAV 16:24
PROVIDERS: ADMIT Internal Medicine; ATTEND Internal Medicine
DX: I50.32 Chronic diastolic (congestive) heart failure (principal); I25.10 Atherosclerotic heart disease of native coronary artery without angina pectoris; Z95.1 Presence of aortocoronary bypass graft; Z98.61 Coronary angioplasty status; I73.9 Peripheral vascular disease, unspecified; J98.9 Respiratory disorder, unspecified; Z77.22 Contact with and (suspected) exposure to environmental tobacco smoke (acute) (chronic); I11.0 Hypertensive heart disease with heart failure; E78.5 Hyperlipidemia, unspecified; E11.9 Type 2 diabetes mellitus without complications; Q60.3 Renal hypoplasia, unilateral; K21.9 Gastro-esophageal reflux disease without esophagitis; F41.9 Anxiety disorder, unspecified; F32.A Depression, unspecified; Z79.4 Long term (current) use of insulin; Z79.84 Long term (current) use of oral hypoglycemic drugs; Z79.899 Other long term (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; Z79.82 Long term (current) use of aspirin
CPT/HCPCS: 36415; 71045; 71275; 80048; 82550; 82553; 83735; 83880; 84484; 85025; 85027; 87486; 87581; 87633; 87798; 93005; 93041; 94640; 94760; 96361; 96372; 96374; 96376; 99285; G0378; J1650; J1815; J1940; Q9967

== ENCOUNTER 2024-08-24 14:52 | Emergency (ER) | payer MEDICARE, MEDICAID ==
[~2024-08-24] VITALS: Ht 157.5 cm; Wt 71.2 kg
[~2024-08-24 14:52] MED LIST changes: +ACET-683 PO; +MORP-138 PO; -MORP15TASA PO; +NITR0.4S14 PO; -NYST-13 TOP; +NYST0.1C TOP
[2024-08-24 15:10] VITALS: TEMP 97.6
[2024-08-24 16:07] LABS: VENOUS BASE EXCESS -0.9 (-2.0-2.0); VENOUS HCO3 23.7 MMOL/L (23.0-27.0); VENOUS O2 SATURATION 63.5 % (60.0-80.0); VENOUS PARTIAL PRESSURE CO2 38.7 mmHg (38.0-50.0); VENOUS PARTIAL PRESSURE O2 35.6 mmHg (30.0-50.0); VENOUS PH 7.404 UNITS (7.330-7.430); VENOUS TOTAL CO2 24.8 MMOL/L (24.0-28.0)
[2024-08-24 16:10] LABS: HEMATOCRIT 36.3 % (36.0-47.0); HEMOGLOBIN 11.3 g/dl (12.0-15.5); MEAN CORPUSCULAR HGB CONC 31.1 g/dl (32.0-36.5); MEAN CORPUSCULAR VOLUME 83.6 fl (80.0-96.0); PLATELET COUNT, AUTOMATED 350 10^3/uL (150-450); RED BLOOD COUNT 4.34 10^6/uL (4.00-5.40); WHITE BLOOD COUNT 8.8 10^3/uL (4.0-10.0)
[2024-08-24 16:36] LABS: BILIRUBIN,DIRECT 0.3 MG/DL (<0.4); BILIRUBIN,TOTAL 0.8 MG/DL (0.3-1.2); CALCIUM LEVEL 8.8 MG/DL (8.3-10.6); CREATININE FOR GFR 1.02 MG/DL (0.55-1.30); GLOMERULAR FILTRATION RATE 58.1 (>39); POTASSIUM SERUM 3.6 MMOL/L (3.5-5.1); TOTAL PROTEIN 7.5 G/DL (5.7-8.2)
[2024-08-24 16:37] LABS: THYROID STIMULATING HORMONE 3.707 uIU/ML (0.55-4.78)
[2024-08-24 16:38] LABS: THYROXINE (T4) 10.6 UG/DL (4.5-10.9)
[2024-08-24 16:46] LABS: BASOPHILS 1 % (0-1); LYMPHOCYTES 20 % (16-44); MONOCYTES 6 % (0-5); NEUTROPHILS 73 % (28-66)
[2024-08-24 16:47] LABS: PLATELET ESTIMATE NORMAL (NORMAL)
[2024-08-24 17:30] VITALS: BP 154/86
[2024-08-24 17:37] VITALS: O2SAT 93
[2024-08-24] MEDS ORDERED: PRED10TA2 PO (17:38)
[2024-08-24] MEDS ORDERED: TRAM50TA2 PO (17:38)
[2024-08-24] MEDS: predniSONE 20 MG TAB PO ONE (18:01)
[2024-08-24] MEDS: traMADol 50 MG TAB PO ONE (18:01)
== END 2024-08-24 18:02 | disposition home or self-care (01) ==
LOC: M ED 14:52 → EDBD 14:52 → M ED 18:02
DX: M54.42 Lumbago with sciatica, left side (principal); I50.22 Chronic systolic (congestive) heart failure; I44.0 Atrioventricular block, first degree; I25.2 Old myocardial infarction; E78.5 Hyperlipidemia, unspecified; I10 Essential (primary) hypertension; E11.9 Type 2 diabetes mellitus without complications; Z79.52 Long term (current) use of systemic steroids; Z79.82 Long term (current) use of aspirin; Z79.02 Long term (current) use of antithrombotics/antiplatelets; Z79.4 Long term (current) use of insulin; Z79.899 Other long term (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; Z86.79 Personal history of other diseases of the circulatory system
CPT/HCPCS: 36415; 71045; 80048; 80076; 82803; 83605; 83880; 84436; 84443; 85025; 87040; 87486; 87581; 87633; 87798; 93005; 93041; 94760; 99285; J7512

== ENCOUNTER 2024-08-30 14:01 | Inpatient (IN) | payer MEDICARE, MEDICAID ==
[~2024-08-30] VITALS: Ht 162.6 cm; Wt 72.1 kg
[~2024-08-30 14:01] MED LIST changes: -MORP-138 PO; +MORP15TASA PO; +NYST-13 TOP; -NYST0.1C TOP; +TRAM50TA2 PO
[2024-08-30] MEDS: methylPREDNISolone 125MG 2ML VIAL IV ONE (14:48)
[2024-08-30 14:51] LABS: VENOUS BASE EXCESS -2.6 (-2.0-2.0); VENOUS O2 SATURATION 45.6 % (60.0-80.0); VENOUS PARTIAL PRESSURE CO2 43.1 mmHg (38.0-50.0); VENOUS PARTIAL PRESSURE O2 31.1 mmHg (30.0-50.0); VENOUS PH 7.346 UNITS (7.330-7.430); VENOUS STANDARD HCO3 21.3 MMOL/L; VENOUS TOTAL CO2 24.4 MMOL/L (24.0-28.0)
[2024-08-30 14:57] LABS: BASO % 0.2 % (0.0-1.0); HEMATOCRIT 36.9 % (36.0-47.0); HEMOGLOBIN 11.2 g/dl (12.0-15.5); LYMPH # 0.5 10^3/uL (1.5-5.0); LYMPH % 4.4 % (24.0-44.0); MEAN CORPUSCULAR HEMOGLOBIN 25.1 pg (27.0-33.0); MEAN CORPUSCULAR HGB CONC 30.4 g/dl (32.0-36.5); MEAN CORPUSCULAR VOLUME 82.7 fl (80.0-96.0); MONO # 0.3 10^3/uL (0.0-0.8); MONO % 2.7 % (2.0-8.0); NEUTROPHILS # 10.9 10^3/uL (1.5-8.5); NEUTROPHILS % 92.1 % (36.0-66.0); PLATELET COUNT, AUTOMATED 381 10^3/uL (150-450); RED BLOOD COUNT 4.46 10^6/uL (4.00-5.40); WHITE BLOOD COUNT 11.8 10^3/uL (4.0-10.0)
[2024-08-30 15:22] LABS: ALBUMIN 2.9 G/DL (3.2-5.2); BILIRUBIN,DIRECT 0.3 MG/DL (<0.4); BILIRUBIN,TOTAL 0.9 MG/DL (0.3-1.2); CALCIUM LEVEL 8.6 MG/DL (8.3-10.6); CK-MB VALUE MASS 3.8 NG/ML (<3.6); CREATININE FOR GFR 1.24 MG/DL (0.55-1.30); POTASSIUM SERUM 4.2 MMOL/L (3.5-5.1)
[2024-08-30 15:23] LABS: THYROID STIMULATING HORMONE 2.675 uIU/ML (0.55-4.78)
[2024-08-30] MEDS ORDERED: ISOVUE-370 76% 100ML VIAL As Ordered ONE (15:24)
[2024-08-30 15:34] LABS: MB/CK RELATIVE INDEX 2.9 (< OR =4); PROCALCITONIN 0.08 ng/ml
[2024-08-30] MEDS: IPRATROPIUM 0.5MG/ALBUTEROL 2.5MG INH SOL UD 3ML NEB PRN (15:50)
[2024-08-30] MEDS: FUROSEMIDE 100MG/10ML VIAL IV ONE (16:09)
[2024-08-30] MEDS: cefTRIAXone SOD 2 GM in DEXTROSE 5% (D5W) ADV/MINI-BAG 50 ML IV ONE (16:10)
[2024-08-30 16:16] LABS: CK-MB VALUE MASS 3.9 NG/ML (<3.6); MB/CK RELATIVE INDEX 2.72 (< OR =4)
[2024-08-30] MEDS ORDERED: IPRATROPIUM 0.5MG/ALBUTEROL 2.5MG INH SOL UD 3ML NEB PRN (17:40)
[2024-08-30] MEDS ORDERED: LABETALOL 100MG/20ML VIAL IV PRN (17:45)
[2024-08-30] MEDS ORDERED: DEXTROSE 50% 50ML SYRINGE IV PRN (17:50)
[2024-08-30] MEDS ORDERED: GLUCOSE 4 GM CHEW PO PRN (17:50)
[2024-08-30] MEDS ORDERED: GLUCAGON INJ 1MG VIAL SC PRN (17:50)
[2024-08-30 21:25] VITALS: BP 160/77; TEMP 98.2; O2SAT 97
[2024-08-30] MEDS: INSULIN LISPRO (NovoLOG) PER UNIT SC SCH (22:42)
[2024-08-30 23:07] VITALS: BP 158/72; TEMP 98; O2SAT 96
[2024-08-31 03:00] VITALS: BP 155/74; TEMP 98.2; O2SAT 97
[2024-08-31] MEDS: HEPARIN SOD (PORCINE) 5000UNITS/ML 1ML VIAL/SYRINGE SC SCH (06:31)
[2024-08-31 06:35] LABS: MEAN CORPUSCULAR HEMOGLOBIN 25.3 pg (27.0-33.0); MEAN CORPUSCULAR HGB CONC 31.4 g/dl (32.0-36.5); MEAN CORPUSCULAR VOLUME 80.6 fl (80.0-96.0); PLATELET COUNT, AUTOMATED 354 10^3/uL (150-450); RED BLOOD COUNT 4.34 10^6/uL (4.00-5.40); WHITE BLOOD COUNT 8.1 10^3/uL (4.0-10.0)
[2024-08-31 06:35] LABS: ALBUMIN 2.8 G/DL (3.2-5.2); BILIRUBIN,DIRECT 0.3 MG/DL (<0.4); BILIRUBIN,TOTAL 0.6 MG/DL (0.3-1.2); CALCIUM LEVEL 8.5 MG/DL (8.3-10.6); CREATININE FOR GFR 1.16 MG/DL (0.55-1.30); GLOMERULAR FILTRATION RATE 49.8 (>39); POTASSIUM SERUM 3.5 MMOL/L (3.5-5.1); TOTAL PROTEIN 6.8 G/DL (5.7-8.2)
[2024-08-31 08:00] VITALS: BP 155/72; TEMP 98.2; O2SAT 97
[2024-08-31] MEDS: FUROSEMIDE 40MG/4ML VIAL IV SCH (08:24)
[2024-08-31] MEDS: LanTUS (INSULIN GLARGINE INJ) 1 UNITS/0.01 ML SC SCH (08:24)
[2024-08-31] MEDS: INSULIN LISPRO (NovoLOG) PER UNIT SC SCH (08:26)
[2024-08-31] MEDS: POTASSIUM CHLORIDE 10MEQ SR TABLET PO ONE (10:08)
[2024-08-31] MEDS ORDERED: ACETAMINOPHEN 325 MG TAB PO PRN (10:35)
[2024-08-31] MEDS ORDERED: oxyCODONE 5MG TAB PO PRN (10:35)
[2024-08-31 12:00] VITALS: BP 159/77; TEMP 98; O2SAT 95
[2024-08-31 12:43] LABS: CALCIUM LEVEL 8.6 MG/DL (8.3-10.6); CREATININE FOR GFR 1.1 MG/DL (0.55-1.30); GLOMERULAR FILTRATION RATE 53.1 (>39); POTASSIUM SERUM 4.7 MMOL/L (3.5-5.1)
[2024-08-31] MEDS: SYMBICORT 160/4.5MCG INHALER 6GM INH SCH (12:55)
[2024-08-31] MEDS ORDERED: LOSA50TA28 PO (12:57)
[2024-08-31] MEDS ORDERED: TRAM50TA2 PO (12:57)
[2024-08-31] MEDS ORDERED: BREO1INH3 INH (12:57)
[2024-08-31] MEDS ORDERED: PRED10TA2 PO (12:57)
[2024-08-31] MEDS ORDERED: ALBU2.5V10 INH (12:57)
[2024-08-31] MEDS: ASPIRIN 81MG CHEW TABLET PO ONE (12:58)
[2024-08-31] MEDS ORDERED: HOME MED LIST COMPLETE! XX SCH (13:00)
[2024-08-31] MEDS: CLOPIDOGREL 75 MG TAB PO ONE (13:00)
[2024-08-31] MEDS: METOPROLOL TART 25 MG TABLET PO ONE (13:00)
[2024-08-31] MEDS ORDERED: INSULIN LISPRO (NovoLOG) PER UNIT SC SCH (17:30)
[2024-08-31 19:27] VITALS: BP 135/63; TEMP 99.2; O2SAT 97
[2024-08-31 21:47] VITALS: BP 135/63
[2024-08-31] MEDS: METOPROLOL TART 25 MG TABLET PO SCH (21:47)
[2024-09-01 03:33] VITALS: BP 184/99; TEMP 97.4; O2SAT 96
[2024-09-01 03:40] VITALS: BP 176/94
[2024-09-01 05:31] VITALS: BP 165/79
[2024-09-01 06:15] LABS: BASO % 0.1 % (0.0-1.0); EOS # 0.2 10^3/uL (0.0-0.5); EOS % 1.3 % (0.0-3.0); HEMATOCRIT 36.8 % (36.0-47.0); HEMOGLOBIN 11.4 g/dl (12.0-15.5); LYMPH # 2.5 10^3/uL (1.5-5.0); LYMPH % 17.6 % (24.0-44.0); MEAN CORPUSCULAR HEMOGLOBIN 25.3 pg (27.0-33.0); MEAN CORPUSCULAR VOLUME 81.6 fl (80.0-96.0); MONO # 0.9 10^3/uL (0.0-0.8); MONO % 6.7 % (2.0-8.0); NEUTROPHILS # 10.4 10^3/uL (1.5-8.5); NEUTROPHILS % 73.9 % (36.0-66.0); PLATELET COUNT, AUTOMATED 380 10^3/uL (150-450); RED BLOOD COUNT 4.51 10^6/uL (4.00-5.40); WHITE BLOOD COUNT 14.1 10^3/uL (4.0-10.0)
[2024-09-01 06:40] LABS: CALCIUM LEVEL 8.3 MG/DL (8.3-10.6); CREATININE FOR GFR 1.04 MG/DL (0.55-1.30); GLOMERULAR FILTRATION RATE 56.8 (>39); MAGNESIUM LEVEL 1.9 MG/DL (1.8-2.4); POTASSIUM SERUM 3.1 MMOL/L (3.5-5.1)
[2024-09-01 08:20] VITALS: BP 154/70; TEMP 98.3; O2SAT 95
[2024-09-01] MEDS: ASPIRIN 81MG ENTERIC TABLET PO SCH (08:25)
[2024-09-01] MEDS: POTASSIUM CHLORIDE 10MEQ SR TABLET PO ONE (08:25)
[2024-09-01] MEDS: CLOPIDOGREL 75 MG TAB PO SCH (08:25)
[2024-09-01] MEDS: DULoxetine 30MG CAPSULE (CYMBALTA) PO SCH (08:25)
[2024-09-01 11:53] VITALS: BP 142/68
[2024-09-01] MEDS: GABAPENTIN 100 MG CAP PO SCH (11:54)
[2024-09-01] MEDS: LOSARTAN 50MG TABLET PO SCH (11:54)
[2024-09-01] MEDS ORDERED: GABAPENTIN 100 MG CAP PO SCH (21:00)
[2024-09-01] MEDS ORDERED: FAMOTIDINE 20 MG TAB PO SCH (21:00)
[2024-09-01] MEDS ORDERED: MONTELUKAST 10 MG TAB PO SCH (21:00)
== END 2024-09-01 17:16 | disposition home health service (06) | DRG 291 ==
LOC: EDBD 14:01 → M ED 14:01 → M ED INP 16:40 → M PCU 21:16
PROVIDERS: ADMIT Internal Medicine; ATTEND Internal Medicine
DX: I11.0 Hypertensive heart disease with heart failure (principal); I50.33 Acute on chronic diastolic (congestive) heart failure; I16.9 Hypertensive crisis, unspecified; E87.20 Acidosis, unspecified; Q60.3 Renal hypoplasia, unilateral; R74.01 Elevation of levels of liver transaminase levels; G62.9 Polyneuropathy, unspecified; K21.9 Gastro-esophageal reflux disease without esophagitis; I25.10 Atherosclerotic heart disease of native coronary artery without angina pectoris; Z95.1 Presence of aortocoronary bypass graft; R29.6 Repeated falls; F03.90 Unspecified dementia, unspecified severity, without behavioral disturbance, psychotic disturbance, mood disturbance, and anxiety; E78.5 Hyperlipidemia, unspecified; E11.51 Type 2 diabetes mellitus with diabetic peripheral angiopathy without gangrene; R91.8 Other nonspecific abnormal finding of lung field; F41.1 Generalized anxiety disorder; Z79.4 Long term (current) use of insulin; F32.A Depression, unspecified; Z86.73 Personal history of transient ischemic attack (TIA), and cerebral infarction without residual deficits; Z91.199 Patient's noncompliance with other medical treatment and regimen due to unspecified reason; E87.6 Hypokalemia; D72.829 Elevated white blood cell count, unspecified; Z77.22 Contact with and (suspected) exposure to environmental tobacco smoke (acute) (chronic); Z79.82 Long term (current) use of aspirin; Z79.899 Other long term (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

== ENCOUNTER → 2024-09-09 | Outpatient (CLI) | payer MEDICARE, MEDICAID ==
[~2024-09-09] MED LIST changes: +ALBU2.5V10 INH; +BREO1INH3 INH; +LOSA50TA28 PO; +MORP-138 PO; -MORP15TASA PO; -NYST-13 TOP; +NYST0.1C TOP
== END ==
LOC: M SLEEP 20:00
PROVIDERS: ATTEND Internal Medicine Critical Care Medicine
DX: G47.33 Obstructive sleep apnea (adult) (pediatric) (principal)

== ENCOUNTER 2024-09-13 13:10 | Inpatient (IN) | payer MEDICARE, MEDICAID ==
[~2024-09-13] VITALS: Ht 160 cm; Wt 69.0 kg
[2024-09-13 13:54] LABS: VENOUS BASE EXCESS -3.6 (-2.0-2.0); VENOUS O2 SATURATION 52.4 % (60.0-80.0); VENOUS PARTIAL PRESSURE CO2 41.8 mmHg (38.0-50.0); VENOUS PH 7.339 UNITS (7.330-7.430); VENOUS STANDARD HCO3 20.5 MMOL/L; VENOUS TOTAL CO2 23.3 MMOL/L (24.0-28.0)
[2024-09-13 13:59] LABS: BASO # 0.1 10^3/uL (0.0-0.2); BASO % 0.6 % (0.0-1.0); EOS # 0.1 10^3/uL (0.0-0.5); EOS % 0.7 % (0.0-3.0); HEMATOCRIT 39.8 % (36.0-47.0); HEMOGLOBIN 12.2 g/dl (12.0-15.5); LYMPH % 11.9 % (24.0-44.0); MEAN CORPUSCULAR HEMOGLOBIN 25.6 pg (27.0-33.0); MEAN CORPUSCULAR HGB CONC 30.7 g/dl (32.0-36.5); MEAN CORPUSCULAR VOLUME 83.6 fl (80.0-96.0); MONO # 0.4 10^3/uL (0.0-0.8); MONO % 4.9 % (2.0-8.0); NEUTROPHILS # 6.8 10^3/uL (1.5-8.5); NEUTROPHILS % 81.5 % (36.0-66.0); PLATELET COUNT, AUTOMATED 322 10^3/uL (150-450); RED BLOOD COUNT 4.76 10^6/uL (4.00-5.40); WHITE BLOOD COUNT 8.4 10^3/uL (4.0-10.0)
[2024-09-13 14:11] LABS: INR 1.19; PROTHROMBIN TIME 15.4 SECONDS (12.5-14.5)
[2024-09-13] MEDS: NITROGLYCERIN 0.4MG SUBL TABLET SL PRN (15:48)
[2024-09-13] MEDS: FUROSEMIDE 100MG/10ML VIAL IV ONE (15:48)
[2024-09-13 15:50] LABS: ALBUMIN 2.8 G/DL (3.2-5.2); BILIRUBIN,DIRECT 0.4 MG/DL (<0.4); BILIRUBIN,TOTAL 1.3 MG/DL (0.3-1.2); CALCIUM LEVEL 8.5 MG/DL (8.3-10.6); CK-MB VALUE MASS 2.8 NG/ML (<3.6); GLOMERULAR FILTRATION RATE 59.5 (>39); MB/CK RELATIVE INDEX 3.94 (< OR =4); POTASSIUM SERUM 4.5 MMOL/L (3.5-5.1); THYROID STIMULATING HORMONE 4.344 uIU/ML (0.55-4.78); TOTAL PROTEIN 6.7 G/DL (5.7-8.2)
[2024-09-13 16:35] LABS: CK-MB VALUE MASS 2.6 NG/ML (<3.6)
[2024-09-13 16:40] LABS: MB/CK RELATIVE INDEX 3.29 (< OR =4)
[2024-09-13] MEDS ORDERED: GLUCAGON INJ 1MG VIAL SC PRN (17:05)
[2024-09-13] MEDS ORDERED: GLUCOSE 4 GM CHEW PO PRN (17:05)
[2024-09-13] MEDS ORDERED: DEXTROSE 50% 50ML SYRINGE IV PRN (17:05)
[2024-09-13] MEDS: INSULIN LISPRO (NovoLOG) PER UNIT SC SCH ×2 (17:30→21:00)
[2024-09-13 18:19] LABS: CK-MB VALUE MASS 2.4 NG/ML (<3.6)
[2024-09-13 18:25] LABS: MB/CK RELATIVE INDEX 3.33 (< OR =4)
[2024-09-13 21:37] VITALS: BP 140/56; TEMP 98; O2SAT 96
[2024-09-13 22:00] VITALS: O2SAT 86
[2024-09-13 22:01] VITALS: O2SAT 98
[2024-09-14] VITALS (7 sets, daily range): BP systolic 128–164; BP diastolic 62–90; TEMP 96.8–98.8; O2SAT 95–98
[2024-09-14] MEDS: GABAPENTIN 100 MG CAP PO ONE (00:15)
[2024-09-14] MEDS: traMADol 50 MG TAB PO ONE (00:16)
[2024-09-14 04:59] LABS: ALBUMIN 2.5 G/DL (3.2-5.2); BILIRUBIN,TOTAL 0.8 MG/DL (0.3-1.2); CALCIUM LEVEL 8.2 MG/DL (8.3-10.6); CREATININE FOR GFR 1.2 MG/DL (0.55-1.30); GLOMERULAR FILTRATION RATE 47.8 (>39); POTASSIUM SERUM 3.6 MMOL/L (3.5-5.1); TOTAL PROTEIN 6.1 G/DL (5.7-8.2)
[2024-09-14 05:02] LABS: HEMATOCRIT 34.8 % (36.0-47.0); HEMOGLOBIN 10.6 g/dl (12.0-15.5); MEAN CORPUSCULAR HEMOGLOBIN 25.1 pg (27.0-33.0); MEAN CORPUSCULAR HGB CONC 30.5 g/dl (32.0-36.5); MEAN CORPUSCULAR VOLUME 82.3 fl (80.0-96.0); PLATELET COUNT, AUTOMATED 293 10^3/uL (150-450); RED BLOOD COUNT 4.23 10^6/uL (4.00-5.40)
[2024-09-14 05:39] LABS: ABG BASE EXCESS 0.1 (-2.0-2.0); ABG HCO3 25.5 MMOL/L (22.0-26.0); ABG O2 SATURATION 98.7 % (95.0-99.0); ABG PARTIAL PRESSURE CO2 44.9 mmHg (35.0-45.0); ABG PARTIAL PRESSURE O2 145.7 mmHg (75.0-100.0); ABG STANDARD HCO3 24.6 MMOL/L. (22.0-26.0); ABG TOTAL CO2 26.9 MMOL/L (23.0-31.0); ABG pH (ARTERIAL) 7.373 UNITS (7.350-7.450)
[2024-09-14] MEDS ORDERED: HOME MED LIST COMPLETE! XX SCH (07:25)
[2024-09-14] MEDS: ENOXAPARIN 40MG/0.4ML SYRINGE (J1650 PER 10MG) SC SCH (09:17)
[2024-09-14] MEDS ORDERED: ALBUTEROL SULFATE 2.5MG/0.5ML INH CONCENTRATE NEB SOLN INH PRN (09:50)
[2024-09-14] MEDS ORDERED: NITROGLYCERIN 0.4MG SUBL TABLET SL PRN (09:50)
[2024-09-14] MEDS: POTASSIUM CHLORIDE 10MEQ SR TABLET PO SCH (11:53)
[2024-09-14] MEDS: ASPIRIN 81MG ENTERIC TABLET PO SCH (11:54)
[2024-09-14] MEDS: ATORVASTATIN 20 MG TAB PO SCH (11:54)
[2024-09-14] MEDS: DAPAGLIFLOZIN PROPANEDIOL 10MG TABLET (FARXIGA) PO SCH (11:55)
[2024-09-14] MEDS: DULoxetine 30MG CAPSULE (CYMBALTA) PO SCH (11:55)
[2024-09-14] MEDS: FAMOTIDINE 20 MG TAB PO SCH (11:55)
[2024-09-14] MEDS: GABAPENTIN 100 MG CAP PO SCH ×2 (11:55→21:18)
[2024-09-14] MEDS: FUROSEMIDE 40MG/4ML VIAL IV SCH (11:56)
[2024-09-14] MEDS: METOPROLOL TART 25 MG TABLET PO SCH (11:56)
[2024-09-14] MEDS: ADVAIR HFA 230/21MCG INHALER INH SCH (19:34)
[2024-09-14] MEDS ORDERED: SYMBICORT 160/4.5MCG INHALER 6GM INH SCH (20:00)
[2024-09-14] MEDS: MONTELUKAST 10 MG TAB PO SCH (21:18)
[2024-09-15] VITALS (7 sets, daily range): BP systolic 124–152; BP diastolic 56–83; TEMP 96.5–98; O2SAT 94–97
[2024-09-15 05:31] LABS: ALBUMIN 2.4 G/DL (3.2-5.2); CALCIUM LEVEL 7.9 MG/DL (8.3-10.6); CREATININE FOR GFR 1.21 MG/DL (0.55-1.30); GLOMERULAR FILTRATION RATE 47.3 (>39); PHOSPHORUS LEVEL 3.3 MG/DL (2.4-5.1); POTASSIUM SERUM 3.4 MMOL/L (3.5-5.1)
[2024-09-15] MEDS: POTASSIUM CHLORIDE 10MEQ SR TABLET PO ONE ×2 (08:22→11:35)
[2024-09-15] MEDS ORDERED: TORS20TA2 PO (12:08)
== END 2024-09-15 17:15 | disposition home or self-care (01) | DRG 291 ==
LOC: M ED 13:10 → EDBD 13:10 → M ED INP 16:47 → M PCU 21:20
PROVIDERS: ADMIT Internal Medicine; ATTEND Student in an Organized Health Care Education/Training Program
DX: I11.0 Hypertensive heart disease with heart failure (principal); I50.33 Acute on chronic diastolic (congestive) heart failure; Q60.3 Renal hypoplasia, unilateral; E11.51 Type 2 diabetes mellitus with diabetic peripheral angiopathy without gangrene; E11.40 Type 2 diabetes mellitus with diabetic neuropathy, unspecified; F32.A Depression, unspecified; I25.10 Atherosclerotic heart disease of native coronary artery without angina pectoris; K21.9 Gastro-esophageal reflux disease without esophagitis; F41.9 Anxiety disorder, unspecified; Z95.1 Presence of aortocoronary bypass graft; R91.8 Other nonspecific abnormal finding of lung field; Z86.73 Personal history of transient ischemic attack (TIA), and cerebral infarction without residual deficits; Z77.22 Contact with and (suspected) exposure to environmental tobacco smoke (acute) (chronic); Z91.199 Patient's noncompliance with other medical treatment and regimen due to unspecified reason; Z79.4 Long term (current) use of insulin; Z79.82 Long term (current) use of aspirin; Z79.899 Other long term (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

== ENCOUNTER → 2024-09-21 | Outpatient (CLI) | payer MEDICARE, MEDICAID ==
[2024-09-21 10:19] LABS: ALBUMIN 2.7 G/DL (3.2-5.2); BILIRUBIN,TOTAL 0.6 MG/DL (0.3-1.2); CALCIUM LEVEL 8.7 MG/DL (8.3-10.6); CREATININE FOR GFR 1.33 MG/DL (0.55-1.30); GLOMERULAR FILTRATION RATE 42.3 (>39); TOTAL PROTEIN 6.8 G/DL (5.7-8.2)
== END ==
LOC: M LAB 08:33
PROVIDERS: ATTEND Nurse Practitioner Acute Care
DX: I50.33 Acute on chronic diastolic (congestive) heart failure (principal)

== ENCOUNTER → 2024-09-24 | Outpatient (CLI) | payer MEDICARE, MEDICAID | LOC: M CARPUL 07:20 | PROVIDERS: ATTEND Internal Medicine Critical Care Medicine | DX: R06.00 Dyspnea, unspecified (principal) ==

== ENCOUNTER → 2024-09-28 | Outpatient (REF) | payer MEDICARE, MEDICAID ==
[2024-09-28 18:30] LABS: CALCIUM LEVEL 8.7 MG/DL (8.3-10.6); CHOLESTEROL RISK RATIO 3.94 (<5); CREATININE FOR GFR 1.03 MG/DL (0.55-1.30); GLOMERULAR FILTRATION RATE 57.4 (>39); HDL CHOLESTEROL 45.9 MG/DL (>40); LDL CHOLESTEROL 107.1 MG/DL (<100); NON-HDL-C 135.1 MG/DL; POTASSIUM SERUM 4.1 MMOL/L (3.5-5.1)
[2024-09-28 18:44] LABS: HEMOGLOBIN A1c 7.9 % (4.0-6.0)
== END ==
LOC: M LAB REF 17:30
PROVIDERS: ATTEND Student in an Organized Health Care Education/Training Program
DX: I50.9 Heart failure, unspecified (principal); E11.9 Type 2 diabetes mellitus without complications; Z79.4 Long term (current) use of insulin

== ENCOUNTER → 2024-10-07 | Outpatient (CLI) | payer MEDICARE, MEDICAID | LOC: M SOG 07:51 | PROVIDERS: ATTEND Orthopaedic Surgery | DX: M19.111 Post-traumatic osteoarthritis, right shoulder (principal) ==

== ENCOUNTER → 2024-12-12 | Outpatient (CLI) | payer MEDICARE, MEDICAID ==
[~2024-12-12] MED LIST changes: +HYDR12.510 PO; -HYDR12CA PO; +LISI40TA10 PO; -LISI40TA4 PO
== END ==
LOC: M SLEEP 20:00
PROVIDERS: ATTEND Internal Medicine Critical Care Medicine
DX: G47.33 Obstructive sleep apnea (adult) (pediatric) (principal)

== ENCOUNTER → 2024-12-24 | Outpatient (REF) | payer MEDICARE, MEDICAID | LOC: M LAB REF 12:48 | PROVIDERS: ATTEND Nurse Practitioner Acute Care | DX: I50.33 Acute on chronic diastolic (congestive) heart failure (principal) ==

== ENCOUNTER 2024-12-28 05:35 | Inpatient (IN) | payer MEDICARE, MEDICAID ==
[~2024-12-28] VITALS: Ht 160 cm; Wt 73.4 kg
[2024-12-28 06:07] LABS: BASO # 0.0 10^3/uL (0.0-0.2); BASO % 0.5 % (0.0-1.0); EOS # 0.2 10^3/uL (0.0-0.5); EOS % 2.8 % (0.0-3.0); LYMPH # 0.5 10^3/uL (1.5-5.0); LYMPH % 6.1 % (24.0-44.0); MONO # 0.7 10^3/uL (0.0-0.8); MONO % 8.3 % (2.0-8.0); NEUTROPHILS # 7.0 10^3/uL (1.5-8.5); NEUTROPHILS % 82.1 % (36.0-66.0); PLATELET COUNT, AUTOMATED 267 10^3/uL (150-450)
[2024-12-28] MEDS: ACETAMINOPHEN 325 MG TAB PO ONE (06:50)
[2024-12-28 07:16] LABS: CREATININE FOR GFR 0.97 MG/DL (0.55-1.30); GLOMERULAR FILTRATION RATE 61.7 (>39); SODIUM LEVEL 145.0 MMOL/L (136-145)
[2024-12-28 07:17] LABS: CALCIUM LEVEL 8.4 MG/DL (8.3-10.6); CARBON DIOXIDE LEVEL 25.8 MMOL/L (20-31); CHLORIDE LEVEL 108.0 MMOL/L (98-107); CK-MB VALUE MASS 1.9 NG/ML (<3.6); CPK CREATINE PHOSPHOKINASE 78.0 U/L (34-145); MB/CK RELATIVE INDEX 2.43 (< OR =4); POTASSIUM SERUM 5.8 MMOL/L (3.5-5.1)
[2024-12-28] MEDS: COMBIVENT RESPIMAT 100-20 MCG INHALER 4 GM INH STA (07:35)
[2024-12-28] MEDS: cefTRIAXone SOD 1 GM in DEXTROSE 5% (D5W) ADV/MINI-BAG 50 ML IV ONE (07:52)
[2024-12-28] MEDS: NS 250 ML IV ONE (07:53)
[2024-12-28] MEDS: dexAMETHasone 4 MG/ML 1 ML VIAL IV ONE (07:53)
[2024-12-28] MEDS ORDERED: ISOVUE-370 76% 100 ML VIAL As Ordered ONE (08:02)
[2024-12-28 08:04] LABS: POTASSIUM SERUM 3.8 MMOL/L (3.5-5.1)
[2024-12-28 08:08] LABS: CK-MB VALUE MASS 1.6 NG/ML (<3.6); CPK CREATINE PHOSPHOKINASE 51.0 U/L (34-145); MB/CK RELATIVE INDEX 3.13 (< OR =4)
[2024-12-28 08:24] LABS: FREE T4 1.18 NG/DL (0.89-1.76)
[2024-12-28 08:29] LABS: ALT/SGPT 16.0 U/L (7.0-40); AST/SGOT 39.0 U/L (<34)
[2024-12-28] MEDS: DOXYCYCLINE HYCLATE 100 MG in DEXTROSE 5% (D5W) MINI-BAG PLU 100 ML IV ONE (08:56)
[2024-12-28] MEDS ORDERED: ENTR1TAB PO (10:18)
[2024-12-28] MEDS ORDERED: MED REC IN PROGRESS XX SCH (11:00)
[2024-12-28] MEDS: HEPARIN SOD 5000 UNITS/ML 1 ML VIAL/SYRINGE SC SCH (12:02)
[2024-12-28] MEDS: FAMOTIDINE 20 MG TAB PO SCH (12:02)
[2024-12-28 12:04] LABS: INR 1.13
[2024-12-28 12:15] LABS: KETONE, URINE AUTO RFX NEGATIVE (NEGATIVE); LEUKOCYTE ESTERASE UR AUTO RFX NEGATIVE (NEGATIVE); MUCUS, URINE RFX SMALL (NEGATIVE); NITRITE, URINE AUTO RFX NEGATIVE (NEGATIVE); RBC, URINE AUTO RFX 0 /HPF (0-3); SQUAM EPITHELIAL CELL UR AURFX 0 /HPF (0-6); WBC, URINE AUTO RFX 0 /HPF (0-3)
[2024-12-28] MEDS: COMBIVENT RESPIMAT 100-20 MCG INHALER 4 GM INH SCH (12:25)
[2024-12-28] MEDS ORDERED: MELA5TAB44 PO (13:34)
[2024-12-28] MEDS ORDERED: METO25TA4 PO (13:34)
[2024-12-28] MEDS ORDERED: HOME MED LIST COMPLETE! XX SCH (13:35)
[2024-12-28 14:04] VITALS: BP 141/88; TEMP 98.1; O2SAT 94
[2024-12-28] MEDS: REMDESIVIR 200 MG in NS 250 ML IV ONE (14:11)
[2024-12-28] MEDS: guaiFENesin ER TABLET 600 MG TAB PO SCH (14:19)
[2024-12-28 16:00] VITALS: BP 167/77; TEMP 98.4; O2SAT 94
[2024-12-28] MEDS: ASPIRIN 81 MG ENTERIC TABLET PO SCH (16:55)
[2024-12-28] MEDS: DAPAGLIFLOZIN PROPANEDIOL 10 MG TABLET PO SCH (16:56)
[2024-12-28] MEDS: ATORVASTATIN 20 MG TAB PO SCH (16:56)
[2024-12-28] MEDS: CLOPIDOGREL 75 MG TAB PO SCH (16:56)
[2024-12-28] MEDS: TORSEMIDE 20 MG TAB PO SCH (16:56)
[2024-12-28 19:38] VITALS: BP 138/57; TEMP 97.9; O2SAT 97
[2024-12-28] MEDS: METOPROLOL TART 25 MG TABLET PO SCH (20:07)
[2024-12-28] MEDS: ENTRESTO 24-26 MG TABLET (SACUBITRIL/VALSARTAN) PO SCH (20:07)
[2024-12-28] MEDS: GABAPENTIN 100 MG CAP PO SCH ×2 (20:08→20:09)
[2024-12-28] MEDS: LanTUS (INSULIN GLARGINE INJ) 1 UNITS/0.01 ML SC SCH (20:30)
[2024-12-29] VITALS (9 sets, daily range): BP systolic 133–182; BP diastolic 60–92; TEMP 97.6–98.4; O2SAT 92–96
[2024-12-29] MEDS: ACETAMINOPHEN 325 MG TAB PO PRN (01:36)
[2024-12-29] MEDS: ALBUTEROL 90 MCG/ACT 8 GM HFA INHALER INH PRN (01:38)
[2024-12-29] MEDS: IBUPROFEN 400 MG TAB PO ONE (03:10)
[2024-12-29] MEDS: hydrALAZINE 20 MG/ML 1 ML VIAL IV STA (04:36)
[2024-12-29 05:02] LABS: CK-MB VALUE MASS 4.1 NG/ML (<3.6)
[2024-12-29 05:04] LABS: CPK CREATINE PHOSPHOKINASE 87.0 U/L (34-145); MB/CK RELATIVE INDEX 4.71 (< OR =4)
[2024-12-29 06:39] LABS: ALT/SGPT 22.0 U/L (7.0-40); AST/SGOT 28.0 U/L (<34); CALCIUM LEVEL 8.5 MG/DL (8.3-10.6); CARBON DIOXIDE LEVEL 22.0 MMOL/L (20-31); CHLORIDE LEVEL 106.0 MMOL/L (98-107); CREATININE FOR GFR 1.07 MG/DL (0.55-1.30); GLOMERULAR FILTRATION RATE 54.9 (>39); POTASSIUM SERUM 3.6 MMOL/L (3.5-5.1); SODIUM LEVEL 142.0 MMOL/L (136-145)
[2024-12-29 06:42] LABS: PLATELET COUNT, AUTOMATED 250 10^3/uL (150-450)
[2024-12-29] MEDS: amLODIPine 5 MG TAB PO ONE (12:33)
[2024-12-29] MEDS: MORPHINE 2 MG/ML 1 ML VIAL IV PRN (14:29)
[2024-12-29 14:53] LABS: PLATELET COUNT, AUTOMATED 271 10^3/uL (150-450)
[2024-12-29 15:15] LABS: ALT/SGPT 23.0 U/L (7.0-40); AST/SGOT 35.0 U/L (<34); CALCIUM LEVEL 8.7 MG/DL (8.3-10.6); CARBON DIOXIDE LEVEL 22.0 MMOL/L (20-31); CHLORIDE LEVEL 107.0 MMOL/L (98-107); CREATININE FOR GFR 1.05 MG/DL (0.55-1.30); GLOMERULAR FILTRATION RATE 56.1 (>39); POTASSIUM SERUM 3.7 MMOL/L (3.5-5.1); SODIUM LEVEL 143.0 MMOL/L (136-145)
[2024-12-30 04:45] VITALS: BP 169/71; TEMP 98.4; O2SAT 94
[2024-12-30 05:54] LABS: PLATELET COUNT, AUTOMATED 263 10^3/uL (150-450)
[2024-12-30 06:28] LABS: ALT/SGPT 22.0 U/L (7.0-40); AST/SGOT 26.0 U/L (<34); CALCIUM LEVEL 8.7 MG/DL (8.3-10.6); CARBON DIOXIDE LEVEL 25.0 MMOL/L (20-31); CHLORIDE LEVEL 106.0 MMOL/L (98-107); CREATININE FOR GFR 0.99 MG/DL (0.55-1.30); GLOMERULAR FILTRATION RATE 60.2 (>39); POTASSIUM SERUM 3.1 MMOL/L (3.5-5.1); SODIUM LEVEL 145.0 MMOL/L (136-145)
[2024-12-30 08:04] VITALS: BP 148/70; TEMP 97.8; O2SAT 97
[2024-12-30 08:51] VITALS: BP 148/70
[2024-12-30] MEDS ORDERED: DEXA6TAB PO (10:56)
[2024-12-30 11:36] LABS: MAGNESIUM LEVEL 2.0 MG/DL (1.8-2.4)
[2024-12-30] MEDS: POTASSIUM CHLORIDE 10MEQ SR TABLET PO ONE (11:54)
== END 2024-12-30 15:01 | disposition home or self-care (01) | DRG 871 ==
LOC: M ED 05:35 → M ED INP 10:53 → M PCU 13:49
PROVIDERS: ADMIT Internal Medicine; ATTEND Internal Medicine
DX: A41.9 Sepsis, unspecified organism (principal); J96.01 Acute respiratory failure with hypoxia; U07.1 COVID-19; I50.32 Chronic diastolic (congestive) heart failure; E11.51 Type 2 diabetes mellitus with diabetic peripheral angiopathy without gangrene; I11.0 Hypertensive heart disease with heart failure; F03.90 Unspecified dementia, unspecified severity, without behavioral disturbance, psychotic disturbance, mood disturbance, and anxiety; E11.42 Type 2 diabetes mellitus with diabetic polyneuropathy; E78.5 Hyperlipidemia, unspecified; K21.9 Gastro-esophageal reflux disease without esophagitis; E87.5 Hyperkalemia; R91.1 Solitary pulmonary nodule; Z86.73 Personal history of transient ischemic attack (TIA), and cerebral infarction without residual deficits; Z95.1 Presence of aortocoronary bypass graft; Z79.82 Long term (current) use of aspirin; Z79.899 Other long term (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

== ENCOUNTER → 2025-02-05 | Outpatient (CLI) | payer MEDICARE, MEDICAID ==
[~2025-02-05] MED LIST changes: +DEXA6TAB PO; +ENTR1TAB PO; +MELA5TAB44 PO; +METO25TA4 PO
== END ==
LOC: M RAD 11:59
PROVIDERS: ATTEND Physician Assistant
DX: R68.89 Other general symptoms and signs (principal); I73.9 Peripheral vascular disease, unspecified

== ENCOUNTER → 2025-04-22 | Outpatient (CLI) | payer MEDICARE, MEDICAID | LOC: M SOG 07:34 | PROVIDERS: ATTEND Orthopaedic Surgery | DX: M25.562 Pain in left knee (principal); M25.561 Pain in right knee; M17.0 Bilateral primary osteoarthritis of knee ==